=== PATIENT | male | born 1935 | race Caucasian/White ===

== ENCOUNTER 2017-11-25 09:47 | Day surgery (SDC) | payer MEDICARE, SELFPAY ==
--- NOTE | 2017-11-25 | LES_PTH ---
PATIENT: SHREE MARCUM LOC: [facility] [place][id number] AGE/SX: 82/M ROOM: RE11/25/[address]: Dr. Yash Staley MD : [id number] BED: DIS: 11/25/2017 SPEC #: [id number] RECD: 11/25/17 13:13 STATUS: MITCHEL LASHAWN #: [id number] PETERSON: 11/25/17 00:[address]: Yash Staley DEPT: SURGICAL PATHOLOGY RECD BY: Margo Nino ENTERED: 11/25/17 14:11 SP TYPE: Lesion OTHR DR: Dr. Jono Vásquez DO Tissues: Skin of face, NOS Procedures: Frozen Section (charge) Surgery Specimen Level IV Frozen (no charge) HEADER OPERATION: Excision, lesion, religious area, 22 x 22 mm lesion PRE-OP DIAGNOSIS: Lesion right temporal TISSUE SUBMITTED: Lesion right temporal area FROZEN SECTION DIAGNOSIS Skin lesion, right temporal area, biopsy: Ulcerated basal cell carcinoma, completely excised. AM:kathleen 11/25/17 MICROSCOPIC DIAGNOSIS Skin lesion of right temporal region, excisional biopsy: Ulcerated basal cell carcinoma, completely excised. Solar elastosis. AM:kathleen 11/28/17 MICROSCOPIC DESCRIPTION Slides are reviewed. GROSS DESCRIPTION Received fresh for frozen section consultation labeled with the patient's name is a specimen designated lesion right religious area. The specimen consists of a disc of hair bearing skin measuring 1.6 x 1.5 x 0.2 cm. The specimen is inked, serially sectioned and totally submitted in one cassette for frozen section consultation. / AM:kathleen 11/25/17 TC:0 CPT: 99069, 38642
[2017-11-25 12:21] VITALS: BP 98/60; PULSE 51; RESP 16; TEMP 36.2; O2SAT 99; BMI 23.6
[2017-11-25] MEDS: Bacitracin 500 UNITS/GM PACKET (13:38)
--- NOTE | 2017-11-25 13:42 | PCM.OPRPT ---
Problem List (1) Primary malignant neoplasm of skin of scalp Status: Acute Report of Operation Date of Procedure: 11/25/17 Pre-Operative Diagnosis: Malignant lesion skin if right jain Post-Operative Diagnosis: Basal cell carcinoma right jain Surgery/Procedure Performed:: Excision of 2.2 x 2.2 cm basal cell carcinoma right jain with advancement flap reconstruction Description of Surgical Findings:: Luz Marina is an 82-year-old man who presents for evaluation of the ulcerating bleeding nonhealing lesion of the right jain. He reports a history of prior excision with malignancy being identified although he does not recall the type. Given its appearance excision was offered for relief and care he was eager to proceed. The risks, alternatives, potential comp occasions, and benefits were discussed at length in the office and witnessed consent obtained. Procedure went as follows: The patient was identified in the preoperative holding brought to the operating room after site marking the right jain were obvious raised centrally ulcerated lesion was located just anterior and above the ear within the hairline. This was then injected with 1% lidocaine with 100,000 epinephrine for local hemostasis and no allowing for vasoconstriction a 2.2 x 2.2 cm circular excision was then carried out full-thickness through the skin to the temporalis muscle fascia. This was then sent for pathologic evaluation which confirmed an ulcerating basal cell carcinoma with clear margins. This concluded the resection Reconstruction of the defect was then undergone as follows: The area was then widely undermined superiorly and inferiorly with relaxing incisions carried out superiorly and inferiorly to create to advancement flaps. These were then closed deeply with interrupted 4-0 Vicryl suture. The skin layer was then closed with 4-0 Prolene suture resulting in a circular defect transformed into an eye shaped wound to close with minimal tension and avoiding deformity around the eye. Bacitracin ointment was then applied and the patient returned to recovery having tolerated she is well without significant blood loss or complications with operative findings of an ulcerating basal cell carcinoma with clear surgical margins. Type of Anesthesia:: Local Specimen's removed: Basal cell carcinoma Estimated Blood Loss (mL): 0 mL Fluids Replaced: 0 mL - Admit VTE Documentation VTE Present on Admission: No VTE Pharm Prophylaxis ordered?: No Reason prophylaxis not ordered:: Procedure Not Indicated
--- NOTE | 2017-11-25 13:47 | OP.PCM_ITS ---
Problem List (1) Primary malignant neoplasm of skin of scalp Status: Acute Report of Operation Date of Procedure: 11/25/17 Pre-Operative Diagnosis: Malignant lesion skin if right sabianism Post-Operative Diagnosis: Basal cell carcinoma right sabianism Surgery/Procedure Performed:: Excision of 2.2 x 2.2 cm basal cell carcinoma right sabianism with advancement flap reconstruction Description of Surgical Findings:: Luz Marina is an 82-year-old man who presents for evaluation of the ulcerating bleeding nonhealing lesion of the right sabianism. He reports a history of prior excision with malignancy being identified although he does not recall the type. Given its appearance excision was offered for relief and care he was eager to proceed. The risks, alternatives, potential comp occasions, and benefits were discussed at length in the office and witnessed consent obtained. Procedure went as follows: The patient was identified in the preoperative holding brought to the operating room after site marking the right sabianism were obvious raised centrally ulcerated lesion was located just anterior and above the ear within the hairline. This was then injected with 1% lidocaine with 100, 000 epinephrine for local hemostasis and no allowing for vasoconstriction a 2.2 x 2.2 cm circular excision was then carried out full-thickness through the skin to the temporalis muscle fascia. This was then sent for pathologic evaluation which confirmed an ulcerating basal cell carcinoma with clear margins. This concluded the resection Reconstruction of the defect was then undergone as follows: The area was then widely undermined superiorly and inferiorly with relaxing incisions carried out superiorly and inferiorly to create to advancement flaps. These were then closed deeply with interrupted 4-0 Vicryl suture. The skin layer was then closed with 4-0 Prolene suture resulting in a circular defect transformed into an eye shaped wound to close with minimal tension and avoiding deformity around the eye. Bacitracin ointment was then applied and the patient returned to recovery having tolerated she is well without significant blood loss or complications with operative findings of an ulcerating basal cell carcinoma with clear surgical margins. Type of Anesthesia:: Local Specimen's removed: Basal cell carcinoma Estimated Blood Loss (mL): 0 mL Fluids Replaced: 0 mL - Admit VTE Documentation VTE Present on Admission: No VTE Pharm Prophylaxis ordered?: No Reason prophylaxis not ordered:: Procedure Not Indicated
--- NOTE | 2017-11-25 13:48 | PCM.DC ---
- Discharge Diagnoses Current Active Problems: Current Active and Chronic Problems Primary malignant neoplasm of skin of scalp (Acute) You will use the following diet at home:: No restrictions Discharge Activity: Return to Normal Activity Call your doctor if your incision/area has: Sudden Increased Bleeding, Increased Redness, Swelling at the incision site Call your doctor if you observe: Fever of 101 or Higher, Uncontrolled pain Cleanse incision/area with: Do not get Incision Wet Allergies/Adverse Reactions: Allergies No Known Allergies Allergy (Verified 11/25/17 10:54) Primary Care Physician: Jono Vásquez DO [Primary Care Provider] - Please Follow Up With: Yash Staley MD When: 7 days
== END 2017-11-25 14:04 | disposition home or self-care (01) ==
LOC: SDC 09:48 → AC 10:22
PROVIDERS: Family Provider Preventive Medicine Occupational Medicine; PCP Preventive Medicine Occupational Medicine; Visit Provider Otolaryngology
PROC: (CPT 14020; principal; 2017-11-25 12:45)
DX: C44.41 Basal cell carcinoma of skin of scalp and neck (principal); I10 Essential (primary) hypertension; E78.5 Hyperlipidemia, unspecified; L03.211 Cellulitis of face; J34.2 Deviated nasal septum; Z85.828 Personal history of other malignant neoplasm of skin; Z79.891 Long term (current) use of opiate analgesic; Z79.02 Long term (current) use of antithrombotics/antiplatelets; Z79.899 Other long term (current) drug therapy
CPT/HCPCS: 14020; 88305; 88331

== ENCOUNTER → 2017-12-05 13:12 | Outpatient (CLI) | payer MEDICARE, SELFPAY ==
--- NOTE | 2017-12-05 13:15 | CDU_ITS ---
Reason For Study: Carotid stenosis Rt. Velocities/BP Lt. Velocities/BP Prox CCA 63.3/14.1 cm/sec. Prox CCA 75.6/15.8 cm/sec. Mid CCA 50.4/12.9 cm/sec. Mid CCA 69.8/15.8 cm/sec. Dist CCA 51.0/15.2 cm/sec. Dist CCA 61.6/14.1 cm/sec. Prox ICA 49.5/17.3 cm/sec. Prox ICA 39.7/11.0 cm/sec. Mid ICA 47.4/13.7 cm/sec. Mid ICA 42.0/14.9 cm/sec. Dist ICA 49.7/11.8 cm/sec. Dist ICA 44.4/16.0 cm/sec. Rt. ICA/CCA = .99. Lt. ICA/CCA = .64. Prox ECA 73.3/11.7 cm/sec. Prox ECA 65.7/11.1 cm/sec. Rt. Vert. 43.4/12.9 cm/sec. Lt. Vert. 39.3/16.9 cm/sec. Right Extracranial There is intimal thickening but no significant atherosclerotic plaque noted in the right common carotid artery. There is heterogeneous, irregular atherosclerotic plaque noted in the right internal carotid artery. There is heterogeneous, smooth atherosclerotic plaque noted in the right external carotid artery. Antegrade flow is noted in the right vertebral artery. Left Extracranial There is intimal thickening but no significant atherosclerotic plaque noted in the left common carotid artery. There is intimal thickening but no significant atherosclerotic plaque noted in the left internal carotid artery. There is no significant atherosclerotic plaque noted in the left external carotid artery. Antegrade flow is noted in the left vertebral artery. Procedure Carotid Duplex [id number]. Exam performed in department. Interpretation Summary Mild irregular plague at the proximal right internal carotid with <50% stenosis. Normal flow right external carotid Post-operative changes left carotid bulb and internal carotid with <50% stenosis of the internal carotid. Normal flow left external carotid Patent and antegrade vertebrals bilaterally. Ordering Physician: Jono Vásquez Referring Physician: Jono Vásquez Performed By: Ange Abdi RVT
== END ==
PROVIDERS: Family Provider Preventive Medicine Occupational Medicine; PCP Preventive Medicine Occupational Medicine; Visit Provider Preventive Medicine Occupational Medicine
DX: Z86.73 Personal history of transient ischemic attack (TIA), and cerebral infarction without residual deficits (principal)
CPT/HCPCS: 93880

== ENCOUNTER → 2018-02-01 12:43 | Outpatient (CLI) | payer MEDICARE, SELFPAY ==
--- NOTE | 2018-02-01 12:48 | ECHOD_ITS ---
Reason For Study: Murmur Procedure This was a 2D Doppler, Color Flow transthoracic echocardiogram. Exam performed in department. Left Ventricle Normal LV size. Left ventricular systolic function is normal. The estimated ejection fraction is 55 %. Transmitral and pulmonary venous doppler flow suggestive of impaired relaxation of left ventricle. No regional wall motion abnormalities noted. Right Ventricle Normal RV size. Normal systolic function. Atria The left atrium is mildly enlarged. Normal right atrium. Mitral Valve Normal mitral valve. Tricuspid Valve Normal tricuspid valve. Aortic Valve Trisinus/trileaflet aortic valve. Moderate focal aortic valve calcification. Peak aortic valve gradient 31 mmHg. Mean aortic valve gradient 19 mmHg. Mild to moderate aortic stenosis. Calculated aortic valve area (continuity equation) is 1.1 cm2. Mild (1+) eccentric aortic valve insufficiency. Pulmonic Valve Normal pulmonic valve. Great Vessels Normal aortic root. The pulmonary artery is normal size. Normal inferior vena cava. Pericardium/Pleural No pericardial effusion. MMode/2D Measurements & Calculations LVIDd: 4.9 cm IVSd: 1.1 cm LVOT diam: 2.2 cm LVIDs: 3.2 cm LVPWd: 1.1 cm LVOT area: 3.7 cm2 RVDd: 4.1 cm FS: 35.5 % Ao root diam: 3.2 cm LAV(MOD-bp): 73.0 ml LA A4 area: 22.0 cm2 LA dimension: 5.0 cm LAV(MOD-bp) Indexed: 41.4 ml/m2 LAV(MOD-sp2): 72.7 ml LAV(MOD-sp4): 61.7 ml RA A4 area: 20.6 cm2 Doppler Measurements & Calculations MV E max vish: 92.2 cm/sec Lat Peak E' Vish: 7.3 cm/sec Med Peak E' Vish: 4.3 cm/sec E/E' lat: 12.6 E/E' med: 21.6 Ao V2 max: 281.0 cm/sec AI max vish: 405.0 cm/sec LV V1 max: 80.4 cm/sec Ao max P.8 mmHg AI max P.6 mmHg LV V1 max P.6 mmHg Ao V2 mean: 205.6 cm/sec AI dec slope: 133.0 cm/sec2 LV V1 mean P.4 mmHg Ao mean P.5 mmHg AI P1/2t: 891.5 msec LV V1 mean: 57.0 cm/sec Ao V2 VTI: 53.2 cm LV V1 VTI: 15.9 cm GUANACO(I,D): 1.1 cm2 GUANACO(V,D): 1.1 cm2 SV(LVOT): 59.4 ml PA V2 max: 52.1 cm/sec PI end-d vish: 103.8 cm/sec TR max vish: 207.0 cm/sec TR max P.2 mmHg Interpretation Summary Normal LV size. Left ventricular systolic function is normal. The estimated ejection fraction is 55 %. Transmitral and pulmonary venous doppler flow suggestive of impaired relaxation of left ventricle The left atrium is mildly enlarged. Moderate focal aortic valve calcification. Mild to moderate aortic stenosis. Calculated aortic valve area (continuity equation) is 1.1 cm2. Ordering Physician: Heriberto Sanchez Referring Physician: MD Jono Vásquez Performed By: Sarah Fairchild, PAULETTE, RVT
== END ==
PROVIDERS: Family Provider Preventive Medicine Occupational Medicine; PCP Preventive Medicine Occupational Medicine; Visit Provider Internal Medicine Cardiovascular Disease
DX: I35.0 Nonrheumatic aortic (valve) stenosis (principal)
CPT/HCPCS: 93306

== ENCOUNTER → 2018-03-22 07:43 | Outpatient (CLI) | payer MEDICARE, SELFPAY ==
[2018-03-22 08:34] LABS: Cholesterol 126 mg/dL (200); Hemoglobin A1c 5.5 % (4.2-6.3); High Density Lipoprotein 51 mg/dL; Triglycerides 115 mg/dL; Very Low Density Lipoprotein 23 mg/dL (5-40)
== END ==
PROVIDERS: Family Provider Preventive Medicine Occupational Medicine; PCP Preventive Medicine Occupational Medicine; Visit Provider Psychiatry & Neurology Neurology
DX: Z86.73 Personal history of transient ischemic attack (TIA), and cerebral infarction without residual deficits (principal)
CPT/HCPCS: 36415; 80061; 83036

== ENCOUNTER → 2018-04-05 12:25 | Outpatient (CLI) | payer MEDICARE, SELFPAY ==
--- NOTE | 2018-04-05 12:25 | DT_ITS ---
This patient was seen during an EMR downtime April 03, 2018 - April 10, 2018. This patient may have a combination of paper and electronic documentation or all paper documentation. All documentation is viewable within the e-chart portion of [email or web address] for each patient visit.
--- NOTE | 2018-04-05 12:30 | MRI_ITS ---
STUDY: MRA OF THE HEAD WITHOUT CONTRAST REASON FOR EXAM: Male, 82 years old. STROKE; rt sided numbness- resolved now, hx prev stroke. TECHNIQUE: 3-D xlux-uh-nxyoar (TOF) imaging was performed with MIPs. The study was performed unenhanced. COMPARISON: None. FINDINGS: Normal bilateral petrous carotid arteries. Normal right cavernous carotid artery with a normal supraclinoid bifurcation. Normal left cavernous carotid artery with a normal supraclinoid bifurcation. Normal right A1 segments of the anterior cerebral artery. There is non-visualization of the left A1 segment of the anterior cerebral arteries consistent with either aplastic development or an occlusion. Normal intact anterior communicating artery (ACOM). Normal bilateral A2 segments of the anterior cerebral arteries. Normal right M1 and M2 segments of the middle cerebral arteries, with a normal M1 bifurcation. Normal left M1 and M2 segments of the middle cerebral arteries, with a normal M1 bifurcation. There is non-visualization of the right posterior communicating artery (PCOM). There is non-visualization of the left posterior communicating artery (PCOM). There is nonvisualization of the right vertebral artery with a dominant left vertebral artery. Normal basilar artery with a normal basilar bifurcation. The visualized bilateral superior cerebellar (SCA) arteries are normal. Normal bilateral P1, P2 and visualized P3 segments of the posterior cerebral arteries. There is no demonstrated aneurysm of the [place]. There is no major vessel occlusion or hemodynamically significant stenosis. There is no demonstrated abnormality of the visualized brain. MRI/MRA Head ONLY without Contrast IMPRESSION: Unremarkable MRA of the head Electronically Signed: Mallory Trevizo MD at 8:11 EDT Tel , Service support ,
--- NOTE | 2018-04-05 13:00 | MRI_ITS ---
STUDY: MRA NECK WITH AND WITHOUT CONTRAST REASON FOR EXAM: Male, 82 years old. STROKE; rt sided numbness- resolved now, hx prev stroke. TECHNIQUE: 3-D cxfw-ge-rjvmud (TOF) imaging was performed in an 1.5 T MRI scanner. 7 ml of Gadavist was administered for the contrast enhanced images. COMPARISON: None. FINDINGS: RIGHT CAROTID ARTERIES: Normal right common carotid artery (CCA). Normal right common carotid bulb. Normal origin of the right internal carotid (ICA) artery without a hemodynamically significant stenosis. Normal visualized cervical portion of the right internal carotid artery. Normal origin of the right external carotid artery (ECA). LEFT CAROTID ARTERIES: Normal left common carotid artery (CCA). Normal left common carotid bulb. Normal origin of the left internal carotid (ICA) artery without a hemodynamically significant stenosis. Normal visualized cervical portion of the left internal carotid artery. Normal origin of the left external carotid artery (ECA). VERTEBRAL ARTERIES: There is antegrade flow within the bilateral vertebral arteries with a diminutive right vertebral artery, and a dominant left vertebral artery. MRI/MRA Neck WITH and W/O Contrast IMPRESSION: Unremarkable bilateral cervical carotid arteries. Diminutive right vertebral artery with a dominant left vertebral artery. Electronically Signed: Mallory Trevizo MD at 8:11 EDT Tel , Service support ,
--- NOTE | 2018-04-05 13:00 | MRI_ITS ---
STUDY: MRI BRAIN WITHOUT CONTRAST REASON FOR EXAM: Male, 82 years old. STROKE; rt sided numbness- resolved now, hx prev stroke. TECHNIQUE: Standardized multiplanar fat and water weighted pulse sequences were obtained. COMPARISON: None. FINDINGS: Normal size of the ventricles and extra-axial spaces for the patient's age. There are a limited number of small white matter hyperintensities, distributed throughout the deep white matter tracts of the cerebral hemispheres, consistent with mild chronic white matter ischemic changes. Normal bilateral basal ganglia. Normal thalami. There is no extra-axial fluid accumulation. Normal flow voids within the major intracranial circulation suggesting patency by spin echo criteria. Normal sella turcica, pituitary gland, infundibular stalk, optic chiasm and hypothalamus. Normal tectal plate and pineal gland. Normal midbrain, vivienne and medulla. Normal cerebellum. Normal basal cisterns. Normal bilateral temporal bones. Normal bilateral internal auditory canals. No demonstrated orbital abnormality, within the constraints of a routine brain study. There is mucoperiosteal inflammatory disease of the paranasal sinuses consistent with mild chronic sinusitis. Normal calvarium and skull base. Normal visualized soft tissue structures. Normal visualized upper cervical spine. MRI/Brain without Contrast IMPRESSION: No acute intracranial abnormality. Electronically Signed: Mallory Trevizo MD at 8:11 EDT Tel , Service support ,
[2018-04-16 15:01] LABS: CREATININE FINGERSTICK 0.9 mg/dL (0.70-1.30); EGFR FINGERSTICK > 60 mL/min (>60)
== END ==
PROVIDERS: Family Provider Preventive Medicine Occupational Medicine; PCP Preventive Medicine Occupational Medicine; Visit Provider Psychiatry & Neurology Neurology
DX: Z86.73 Personal history of transient ischemic attack (TIA), and cerebral infarction without residual deficits (principal)
CPT/HCPCS: 70544; 70549; 70551; A9585

== ENCOUNTER → 2018-11-24 08:55 | Outpatient (CLI) | payer MEDICARE, SELFPAY ==
[2018-11-22 14:53] VITALS: BMI 25.9
== END ==
PROVIDERS: Family Provider Preventive Medicine Occupational Medicine; PCP Preventive Medicine Occupational Medicine; Referring Provider Internal Medicine Cardiovascular Disease; Visit Provider Internal Medicine Cardiovascular Disease
DX: I48.2 Chronic atrial fibrillation (principal); I35.0 Nonrheumatic aortic (valve) stenosis
CPT/HCPCS: 93225; 93226

== ENCOUNTER → 2018-11-29 13:28 | Outpatient (CLI) | payer MEDICARE, SELFPAY ==
[2018-11-22 14:53] VITALS: BMI 25.9
--- NOTE | 2018-11-29 13:30 | ECHOD_ITS ---
Reason For Study: AFIB Procedure This was a 2D Doppler, Color Flow transthoracic echocardiogram. The exam was of adequate technical quality. Exam performed in department. Left Ventricle Normal LV size. Left ventricular systolic function is normal. The estimated ejection fraction is 55 %. There is evidence of diastolic dysfunction. No regional wall motion abnormalities noted. Right Ventricle Normal RV size. Normal systolic function. Atria The left atrium is severely enlarged. The right atrium is moderately enlarged. No doppler evidence for ASD. Mitral Valve There is no mitral annular calcification. Mild diffuse mitral valve thickening. Trivial mitral valve insufficiency. Tricuspid Valve Normal tricuspid valve. Mild tricuspid valve insufficiency. Right ventricular systolic pressure estimated to be 25 mmHg. Aortic Valve Trisinus/trileaflet aortic valve. Moderate diffuse aortic valve thickening. Moderate diffuse aortic valve calcification. Moderate aortic stenosis. Mild (1+) aortic valve insufficiency. Pulmonic Valve The pulmonic valve is not well visualized. Trivial pulmonic valve insufficiency. Great Vessels Normal sized aortic root. Pericardium/Pleural No pericardial effusion. MMode/2D Measurements & Calculations LVIDd: 4.9 cm IVSd: 1.1 cm LVOT diam: 2.2 cm LVIDs: 3.5 cm LVPWd: 1.1 cm LVOT area: 3.8 cm2 FS: 28.4 % Ao root diam: 3.4 cm LAV(MOD-bp): 115.7 ml Aortic Valve Planimetry: 1.0 cm2 LAV(MOD-bp) Indexed: 64.6 ml/m2 LAV(MOD-sp2): 113.6 ml LAV(MOD-sp4): 115.5 ml LA dimension(2D): 4.4 cm LA A4 area: 31.0 cm2 RA A4 area: 26.4 cm2 Time Measurements MV dec time: 0.16 sec Doppler Measurements & Calculations MV E max vish: 97.1 cm/sec Lat Peak E' Vish: 6.5 cm/sec Med Peak E' Vish: 5.0 cm/sec E/E' lat: 14.9 E/E' med: 19.5 Ao V2 max: 280.6 cm/sec AI max vish: 401.0 cm/sec LV V1 max: 78.1 cm/sec Ao max P.7 mmHg AI max P.4 mmHg LV V1 max P.5 mmHg Ao V2 mean: 220.6 cm/sec AI dec slope: 166.5 cm/sec2 LV V1 mean P.5 mmHg Ao mean P.8 mmHg AI P1/2t: 705.6 msec LV V1 mean: 57.5 cm/sec Ao V2 VTI: 66.6 cm LV V1 VTI: 17.2 cm GUANACO(I,D): 0.97 cm2 GUANACO(V,D): 1.0 cm2 SV(LVOT): 64.7 ml PA V2 max: 54.7 cm/sec TR max vish: 233.3 cm/sec TR max P.8 mmHg Interpretation Summary Left ventricular systolic function is normal. The estimated ejection fraction is 55 %. The left atrium is severely enlarged. The right atrium is moderately enlarged. Mild diffuse mitral valve thickening. Trivial mitral valve insufficiency. Mild tricuspid valve insufficiency. Moderate aortic stenosis. Mild (1+) aortic valve insufficiency. Trivial pulmonic valve insufficiency. Right ventricular systolic pressure estimated to be 25 mmHg. There is evidence of diastolic dysfunction. Ordering Physician: Heriberto Sanchez Referring Physician: JEAN CLAUDE NICHOLE Performed By: Samantha Bergeron, RDCS, RVT
== END ==
PROVIDERS: Family Provider Preventive Medicine Occupational Medicine; PCP Preventive Medicine Occupational Medicine; Referring Provider Internal Medicine Cardiovascular Disease; Visit Provider Internal Medicine Cardiovascular Disease
DX: I35.0 Nonrheumatic aortic (valve) stenosis (principal); I48.2 Chronic atrial fibrillation
CPT/HCPCS: 93306

== ENCOUNTER 2019-04-25 13:53 | Emergency (ER) | payer MEDICARE, SELFPAY ==
[2019-03-28 15:35] VITALS: BMI 25.7
[2019-04-25 13:54] VITALS: BP 128/72; PULSE 67; RESP 16; TEMP 36.6; O2SAT 97; BMI 23.8
[2019-04-25 14:16] VITALS: BP 112/65; PULSE 52; RESP 20; O2SAT 97
--- NOTE | 2019-04-25 14:17 | EKG12_ITS ---
Test Reason : SYNCOPE Blood Pressure : / mmHG Vent. Rate : 060 BPM Atrial Rate : 375 BPM P-R Int : 000 ms QRS Dur : 148 ms QT Int : 448 ms P-R-T Axes : 000 059 015 degrees QTc Int : 448 ms Atrial fibrillation Right bundle branch block Abnormal ECG Confirmed by NIKO BENJAMIN, HU ([id number]), clinical editor VIRGIL MEDELLIN ([id number]) on 04/27/2019 10:35:15 AM Referred By: MATILDE Confirmed By:MARK POPE MD
[2019-04-25 14:18] VITALS: O2SAT 97
--- NOTE | 2019-04-25 14:34 | ED.VISSUMM ---
- ER Visit Summary Date of Service: 04/25/19 Chief Complaint: Syncope History of Present Illness: The patient is a 83 M who presents after syncopal episode. He was sitting up and stood up quickly and had a syncopal episode. states that he turned white and passed out. This is happened to him in the past. He does follow with Dr. Sanchez. He has a history of atrial fibrillation and is on Xarelto. He had no chest pain or shortness of breath before or after the incident. He states he felt immediately better about a minute afterwards. The states that he has been walking differently and thinks he may be a little bit weak. The patient denies this. Physical Examination: Vital signs reviewed. HEENT exam unremarkable. Heart is irregularly irregular with a rate of 60 without murmurs. Lungs are clear to auscultation. Abdomen is soft and nontender. Extremities reveal no edema. Skin exam normal. Neurologic exam normal. Test Results: EKG is atrial fibrillation with rate of 60. No ST changes. Troponin normal. Other labs are also unremarkable. Emergency Department Course and Treatment: Patient states he feels back to norm. He was able to ambulate without difficulty in the emergency department. His labs are all normal. This is happened to him in the past multiple times. He feels fine and would like to go home. They will call Dr. Sanchez's office today for follow-up. Treatment Plan: [] Disposition: Discharge Impression: Syncope This note was generated with [employer] dictation software. It may contain incorrect words, spelling, and punctuation that were not noted in review of the chart prior to signing ED Disposition - Plan for ED Patient: Referrals: Jono Vásquez DO [Primary Care Provider] -
[2019-04-25 14:36] LABS: Absolute Lymphocyte Count 2.12 X10^3/ul (0.83-4.51); Absolute Neutrophil Count 4.5 X10^3/uL (2.0-7.7); Basophil# 0.06 X10^3/uL; Basophil% 0.8 % (0-1); Eosinophil# 0.24 X10^3/uL; Eosinophils% 3.1 % (0-5); Hematocrit 42.5 % (40-54); Hemoglobin 14.7 g/dl (13.0-16.5); Lymphocyte # 2.12 X10^3/ul (4.0); Lymphocyte % 27.7 % (19-41); Mean Corp Hgb Conc 34.6 g/gl (32-36); Mean Corpuscular Hgb 30.7 pg (27.0-32.0); Mean Corpuscular Volume 88.7 fL (80-94); Mean Platelet Vol. 9.9 fl (6.2-12.0); Monocyte# 0.75 X10^3/uL; Monocyte% 9.8 % (0-10); Neutrophil # 4.45 X10^3/uL (2.7-7.7); Neutrophil % 58.3 % (47-70); Platelet Count 190 K/mm3 (150-450); RBC Distribution Width CV 12.9 % (11.6-14.6); RBC Distribution Width SD 41.5 fl (35.1-43.9); Red Blood Count 4.79 M/mm3 (4.6-6.2); White Blood Count 7.6 K/mm3 (4.4-11.0)
[2019-04-25 14:38] LABS: POSITIVE COUNT NO; POSITIVE DIFFERENTIAL NO; POSITIVE MORPHOLOGY NO
[2019-04-25 14:39] LABS: Anion Gap 7 (5-15); BUN 22 mg/dL (7-18); BUN/Creat Ratio 18.2 RATIO (10-20); Calcium,Total 8.7 mg/dL (8.5-10.1); Chloride 106 mmol/L (98-107); Creatinine, Serum 1.21 mg/dL (0.70-1.30); EST Glomerular Filtration Rate 61 mL/min (>60); Est Glom Filt Rate - Afr Amer 74 mL/min (>60); Estimated Creatinine Clearance 44.76 ml/min; Glucose 93 mg/dL (74-106); Potassium 4.3 mmol/L (3.5-5.1); Sodium Level 141 mmol/L (136-145)
[2019-04-25 15:05] VITALS: BP 125/83; PULSE 74; RESP 16; O2SAT 97
--- NOTE | 2019-04-25 15:09 | ED.DEP ---
ED Disposition - Plan for ED Patient: Disposition: Home or Assisted Living Instructions: SYNCOPE, Unk Cause Referrals: Jono Vásquez DO [Primary Care Provider] -
[2019-04-25 15:57] VITALS: BP 115/74; PULSE 64; RESP 16; O2SAT 98
== END 2019-04-25 15:30 | disposition home or self-care (01) ==
PROVIDERS: Emergency Provider Emergency Medicine; Family Provider Preventive Medicine Occupational Medicine; PCP Preventive Medicine Occupational Medicine
DX: R55 Syncope and collapse (principal); I48.91 Unspecified atrial fibrillation; I10 Essential (primary) hypertension; E78.00 Pure hypercholesterolemia, unspecified; Z79.02 Long term (current) use of antithrombotics/antiplatelets; Z79.899 Other long term (current) drug therapy
CPT/HCPCS: 80048; 84484; 85025; 93005; 99285; A4216

== ENCOUNTER → 2019-05-16 | Outpatient (CLI) | payer MEDICARE, SELFPAY ==
[2019-04-30 10:33] VITALS: BMI 23.8
--- NOTE | 2019-05-16 09:29 | STRESSREP_ITS ---
Stress Test Report Date: 05-16-19 Procedure: Pharmacologic stress nuclear imaging study Indications: Atrial fibrillation; aortic valve stenosis Consent: Per the patient Procedure: The patient underwent pharmacologic (Regadenoson) evaluation with a peak heart rate of 90 beats per minute (64 %predicted maximal heart rate) and a peak blood pressure of 142/82 mmHg. The baseline ECG demonstrated atrial fibrillation; right bundle branch block pattern. The peak pharmacologic ECG demonstrated no obvious ECG changes. There was a rare PVC pretest. There was no complaint of chest discomfort during pharmacologic infusion or recovery. The examination was discontinued secondary to completion of protocol. Impression: 1. Pharmacologic (Regadenoson) evaluation 2. Peak pharmacologic ECG with no obvious ECG changes. 3. There was a rare PVC pretest. 4. Nuclear images pending Myocardial perfusion imaging study: Technique: The patient was injected with 11.1 millicuries of technetium 99m Cardiolite and subsequently rest SPECT Cardiolite nuclear imaging was obtained in the horizontal long, vertical long, and short axis views. The patient underwent pharmacologic (Regadenoson) evaluation with a peak heart rate of 90 beats per minute (64 % percent predicted maximal heart rate) and a peak blood pressure of 142/82 mmHg. The patient was injected with 32.5 millicuries of technetium 99m Cardiolite and subsequently stress SPECT Cardiolite nuclear imaging was obtained in the horizontal long, vertical long, and short axis views. A gated Cardiolite study at peak stress was obtained. Interpretation: Rest and stress SPECT Cardiolite nuclear imaging status post realignment, normalization, and attenuation correction demonstrate all area of diminished tracer uptake near the apical segments at rest which appears to be less prominent and/or normalize following stress. There is end systolic thickening and brightening. The gated Cardiolite study demonstrates myocardial thickening and inward wall motion. The reported LVEF is 62 %. Impression: 1. Rest and stress SPECT currently nuclear imaging demonstrate myocardial perfusion changes appearing compatible with the effects of shifting soft tissue attenuation/artifact and/or physiologic apical thinning with no myocardial perfusion changes considered diagnostic for associated stress-induced myocardial ischemia. 2. The gated Cardiolite study reports an LVEF of 62 %. This note was generated with Chat[employer] software. It may contain incorrect words, spelling, and punctuation that were not noted in checking the note before signing.
== END | disposition home or self-care (01) ==
PROVIDERS: Family Provider Preventive Medicine Occupational Medicine; PCP Preventive Medicine Occupational Medicine; Referring Provider Internal Medicine Cardiovascular Disease; Visit Provider Internal Medicine Cardiovascular Disease
DX: I10 Essential (primary) hypertension (principal)
CPT/HCPCS: 78452; 93017; A9500; A4216; J2785

== ENCOUNTER → 2019-05-24 | Outpatient (CLI) | payer MEDICARE, SELFPAY ==
[2019-04-30 10:33] VITALS: BMI 23.8
[2019-05-24 12:44] LABS: Anion Gap 9 (5-15); BUN 19 mg/dL (7-18); BUN/Creat Ratio 16.2 RATIO (10-20); Calcium,Total 8.9 mg/dL (8.5-10.1); Chloride 109 mmol/L (98-107); Creatinine, Serum 1.17 mg/dL (0.70-1.30); EST Glomerular Filtration Rate 63 mL/min (>60); Est Glom Filt Rate - Afr Amer 77 mL/min (>60); Glucose 79 mg/dL (74-106); Potassium 3.9 mmol/L (3.5-5.1); Sodium Level 144 mmol/L (136-145)
== END | disposition home or self-care (01) ==
LOC: LAB 11:24
PROVIDERS: Family Provider Preventive Medicine Occupational Medicine; PCP Preventive Medicine Occupational Medicine; Referring Provider Nurse Practitioner Family; Visit Provider Nurse Practitioner Family
DX: I48.2 Chronic atrial fibrillation (principal); I10 Essential (primary) hypertension; I35.0 Nonrheumatic aortic (valve) stenosis; E78.5 Hyperlipidemia, unspecified
CPT/HCPCS: 36415; 80048

== ENCOUNTER → 2019-07-13 | Outpatient (CLI) | payer MEDICARE, SELFPAY ==
[2019-04-30 10:33] VITALS: BMI 23.8
--- NOTE | 2019-07-13 14:23 | EEG_ITS ---
- Electroencephalogram Date of service 07/13/2019 History EEG is being done in this 84 yr F to rule out seizures EEG Description: This is an 18 channel EEG with 10-20 lead placement system. Bipolar montages, and Referential montages were reviewed. Photic stimulation and Hyperventilation were performed. The posterior dominant rhythm is 11 HZ synchronous, symmetric, reacting to eye opening and closing. Photo stimulation elicited normal driving response but no abnormal photoparoxysmal response, Hyperventilation did not elicit any abnormal photoparoxysmal response. Sleep was identified. There is no abnormal background slowing noted. There was no epileptiform discharges or electrographic seizures noted during this recording. Muscle artefact artefact noted throughout the record. Sales And Marketing Intern documented multiple apneic episodes during the EEG record. EEG Interpretation This is a normal awake and asleep EEG. There is no epileptiform discharges or electrographic seizures noted during the record. Given the documentation of multiple apneic episodes patient must be tested for sleep apnea if not already diagnosed. Patient may benefit from getting polysomnography testing. Clinical correlation is advised. Will defer testing to PCP/ordering physician.
== END | disposition home or self-care (01) ==
LOC: PSN 07:14
PROVIDERS: Family Provider Preventive Medicine Occupational Medicine; PCP Preventive Medicine Occupational Medicine; Referring Provider Nurse Practitioner Family; Visit Provider Nurse Practitioner Family
DX: R56.9 Unspecified convulsions (principal)
CPT/HCPCS: 95819

== ENCOUNTER → 2019-07-17 | Outpatient (CLI) | payer MEDICARE, SELFPAY ==
[2019-04-30 10:33] VITALS: BMI 23.8
--- NOTE | 2019-07-17 06:34 | MRI_ITS ---
STUDY: MRI BRAIN WITHOUT CONTRAST REASON FOR EXAM: Male, 84 years old. memory loss, episodes of confusion TECHNIQUE: Standardized multiplanar fat and water weighted pulse sequences were obtained. COMPARISON: Apr 05 2018 FINDINGS: There is mild cerebral atrophy with widening of the extra-axial spaces and ventricular dilatation. There are a limited number of small white matter hyperintensities, distributed throughout the deep white matter tracts of the cerebral hemispheres, consistent with mild chronic white matter ischemic changes. Normal bilateral basal ganglia. Normal thalami. There is no extra-axial fluid accumulation. Normal flow voids within the major intracranial circulation suggesting patency by spin echo criteria. Normal sella turcica, pituitary gland, infundibular stalk, optic chiasm and hypothalamus. Normal tectal plate and pineal gland. Normal midbrain, vivienne and medulla. Normal cerebellum. Normal basal cisterns. There is minimal paranasal sinus disease. MRI/Brain without Contrast IMPRESSION: No acute intracranial abnormality. Electronically Signed: Mallory Trevizo MD at 15:55 EDT Tel , Service support ,
== END | disposition home or self-care (01) ==
PROVIDERS: Family Provider Preventive Medicine Occupational Medicine; PCP Preventive Medicine Occupational Medicine; Referring Provider Nurse Practitioner Family; Visit Provider Nurse Practitioner Family
DX: R41.3 Other amnesia (principal)
CPT/HCPCS: 70551

== ENCOUNTER → 2019-08-15 | Outpatient (CLI) | payer MEDICARE, SELFPAY ==
[2019-04-30 10:33] VITALS: BMI 23.8
== END | disposition home or self-care (01) ==
PROVIDERS: Family Provider Preventive Medicine Occupational Medicine; PCP Preventive Medicine Occupational Medicine; Referring Provider Psychiatry & Neurology Neurology; Visit Provider Psychiatry & Neurology Neurology
DX: G47.33 Obstructive sleep apnea (adult) (pediatric) (principal)
CPT/HCPCS: 95810

== ENCOUNTER → 2019-12-20 | Outpatient (CLI) | payer MEDICARE, SELFPAY ==
[2019-12-03 09:46] VITALS: BMI 24.0
--- NOTE | 2019-12-20 09:50 | ECHOD_ITS ---
Reason For Study: MURMUR Procedure This was a 2D Doppler, Color Flow transthoracic echocardiogram. The exam was of adequate technical quality. Exam performed in department. Left Ventricle Normal LV size. Left ventricular systolic function is normal. The estimated ejection fraction is 55 %. Unable to assess diastolic dysfunction. No regional wall motion abnormalities noted. Right Ventricle Normal RV size. Normal systolic function. Atria The left atrium is severely enlarged. The right atrium is moderately enlarged. No doppler evidence for ASD. Mitral Valve There is no mitral annular calcification. Mild diffuse mitral valve thickening. Mild (1+) mitral valve insufficiency. Tricuspid Valve Normal tricuspid valve. Mild to moderate (1-2+) tricuspid valve insufficiency. Right ventricular systolic pressure estimated to be 26 mmHg. Aortic Valve Trisinus/trileaflet aortic valve. Moderate diffuse aortic valve thickening. Moderate diffuse aortic valve calcification. Moderate to severe aortic valve stenosis. Mild (1+) aortic valve insufficiency. Pulmonic Valve The pulmonic valve is not well visualized. Trivial pulmonic valve insufficiency. Great Vessels Normal sized aortic root. Pericardium/Pleural No pericardial effusion. MMode/2D Measurements & Calculations LVIDd: 4.9 cm IVSd: 1.1 cm LVOT diam: 2.2 cm LVIDs: 3.6 cm LVPWd: 1.2 cm LVOT area: 3.8 cm2 RVDd: 4.2 cm FS: 26.3 % Ao root diam: 3.7 cm LAV(MOD-bp): 83.8 ml Aortic Valve Planimetry: 0.63 cm2 LAV(MOD-bp) Indexed: 46.2 ml/m2 LAV(MOD-sp2): 74.1 ml LAV(MOD-sp4): 91.8 ml LA dimension(2D): 4.5 cm LA A4 area: 27.0 cm2 RA A4 area: 22.7 cm2 Doppler Measurements & Calculations MV A max yovana: 66.1 cm/sec Ao V2 max: 282.3 cm/sec AI max yovana: 447.2 cm/sec Ao max P.6 mmHg AI max P.1 mmHg Ao V2 mean: 215.4 cm/sec AI dec slope: 167.0 cm/sec2 Ao mean P.5 mmHg AI P1/2t: 784.0 msec Ao V2 VTI: 52.7 cm GUANACO(I,D): 0.63 cm2 GUANACO(V,D): 0.63 cm2 LV V1 max: 47.0 cm/sec SV(LVOT): 33.1 ml PA V2 max: 56.6 cm/sec LV V1 max P.89 mmHg LV V1 mean P.54 mmHg LV V1 mean: 35.1 cm/sec LV V1 VTI: 8.8 cm TR max yovana: 239.0 cm/sec TR max P.9 mmHg Interpretation Summary Left ventricular systolic function is normal. The estimated ejection fraction is 55 %. The left atrium is severely enlarged. The right atrium is moderately enlarged. Mild diffuse mitral valve thickening. Mild (1+) mitral valve insufficiency. Mild to moderate (1-2+) tricuspid valve insufficiency. Moderate to severe aortic valve stenosis. Mild (1+) aortic valve insufficiency. Trivial pulmonic valve insufficiency. Right ventricular systolic pressure estimated to be 26 mmHg. Unable to assess diastolic dysfunction. Ordering Physician: Heriberto Sanchez Referring Physician: JEAN CLAUDE NICHOLE Performed By: Samantha Bergeron, PAULETTE, RVT
== END | disposition home or self-care (01) ==
LOC: CVS 09:50
PROVIDERS: PCP Preventive Medicine Occupational Medicine; Referring Provider Internal Medicine Cardiovascular Disease; Visit Provider Internal Medicine Cardiovascular Disease
DX: I48.21 Permanent atrial fibrillation (principal)
CPT/HCPCS: 93306

== ENCOUNTER → 2021-04-06 10:45 | Outpatient (CLI) | payer MEDICARE, SELFPAY ==
[2021-03-25 11:15] VITALS: BMI 23.6
--- NOTE | 2021-04-06 10:48 | ECHOD_ITS ---
Reason For Study: Murmur Procedure This was a 2D Doppler, Color Flow transthoracic echocardiogram. The study was technically difficult. Bubble Study performed. Exam performed in department. Left Ventricle Normal LV size. Moderate concentric left ventricular hypertrophy. Left ventricular systolic function is normal. The estimated ejection fraction is 55 %. Unable to assess diastolic dysfunction. No regional wall motion abnormalities noted. Right Ventricle Normal RV size. Normal systolic function. Atria The left atrium is severely enlarged. The right atrium is moderately enlarged. No doppler evidence for ASD. Bubble contrast study negative for right to left interatrial shunt. Mitral Valve There is no mitral annular calcification. Mild diffuse mitral valve thickening. The mitral papillary muscle appears thickened and/or calcified. Mild (1+) eccentric mitral valve insufficiency. Tricuspid Valve Normal tricuspid valve. Mild tricuspid valve insufficiency. Right ventricular systolic pressure estimated to be 25 mmHg. Aortic Valve Trisinus/trileaflet aortic valve. Severe diffuse aortic valve thickening. Severe diffuse aortic valve calcification. Severe aortic valve stenosis. (based upon GUANACO). Mild (1+) aortic valve insufficiency. Pulmonic Valve The pulmonic valve is not well visualized. Mild (1+) pulmonic valve insufficiency. Great Vessels The aortic root is not well visualized. Pericardium/Pleural No pericardial effusion. Medication Performed a rapid injection of agitated mix of 9 cc saline and 1cc air to assess for atrial septal defect. MMode/2D Measurements & Calculations LVIDd: 4.5 cm IVSd: 1.7 cm LVOT diam: 2.2 cm LVIDs: 2.9 cm LVPWd: 1.4 cm RVDd: 3.6 cm FS: 35.3 % LVOT area: 3.8 cm2 LA dimension: 4.5 cm LAV(MOD-bp): 86.7 ml Aortic Valve Planimetry: 0.75 cm2 LAV(MOD-bp) Indexed: 47.2 ml/m2 LAV(MOD-sp2): 74.1 ml LAV(MOD-sp4): 92.0 ml LA A4 area: 27.5 cm2 RA A4 area: 20.2 cm2 Doppler Measurements & Calculations MV E max yovana: 82.5 cm/sec Ao V2 max: 311.4 cm/sec AI max yovana: 478.0 cm/sec Ao max P.9 mmHg AI max P.5 mmHg Ao V2 mean: 223.9 cm/sec AI dec slope: 162.5 cm/sec2 Ao mean P.4 mmHg AI P1/2t: 861.5 msec Ao V2 VTI: 66.5 cm GUANACO(I,D): 0.71 cm2 GUANACO(V,D): 0.74 cm2 LV V1 max: 59.9 cm/sec SV(LVOT): 47.2 ml PA V2 max: 56.8 cm/sec LV V1 max P.4 mmHg LV V1 mean P.71 mmHg LV V1 mean: 39.1 cm/sec LV V1 VTI: 12.3 cm TR max yovana: 232.5 cm/sec TR max P.6 mmHg ECHO/Echo Complete Interpretation Summary The study was technically difficult. Left ventricular systolic function is normal. The estimated ejection fraction is 55 %. Moderate concentric left ventricular hypertrophy. The left atrium is severely enlarged. The right atrium is moderately enlarged. Mild diffuse mitral valve thickening. The mitral papillary muscle appears thickened and/or calcified. Mild (1+) eccentric mitral valve insufficiency. Mild tricuspid valve insufficiency. Severe aortic valve stenosis. (based upon GUANACO) Mild (1+) aortic valve insufficiency. Mild (1+) pulmonic valve insufficiency. Right ventricular systolic pressure estimated to be 25 mmHg. Unable to assess diastolic dysfunction. Ordering Physician: Heriberto Sanchez Referring Physician: Ute Walsh Performed By: Stefan Powell RCS
== END ==
PROVIDERS: PCP Nurse Practitioner Family; Referring Provider Internal Medicine Cardiovascular Disease; Visit Provider Internal Medicine Cardiovascular Disease
DX: G45.9 Transient cerebral ischemic attack, unspecified (principal); I35.0 Nonrheumatic aortic (valve) stenosis; I48.20 Chronic atrial fibrillation, unspecified; E78.5 Hyperlipidemia, unspecified; I10 Essential (primary) hypertension
CPT/HCPCS: 93306; A4216

== ENCOUNTER 2021-05-05 08:50 | Day surgery (SDC) | payer MEDICARE, SELFPAY ==
[2021-03-25 11:15] VITALS: BMI 23.6
[2021-04-28 10:05] VITALS: BMI 23.6
--- NOTE | 2021-04-28 10:41 | RAD_ITS ---
STUDY: X-RAY CHEST REASON FOR EXAM: Male, 85 years old. Sever aortic stenosis TECHNIQUE: PA and lateral views of the chest. COMPARISON: None. FINDINGS: There is hyperinflation of the lungs consistent with chronic obstructive lung disease (COPD). There is no demonstrated pleural abnormality. Normal size heart. Normal mediastinum and archana. Normal visualized pulmonary arteries. Normal visualized aortic arch and descending thoracic aorta. Normal visualized thoracic spine. Normal visualized ribs, clavicles, and shoulders. There is no demonstrated abnormality of the visualized soft tissue structures of the upper abdomen. RAD/Chest PA and Lateral IMPRESSION: Emphysema without pneumonia or atelectasis. Electronically Signed: Levy Pinzon MD at 13:42 EDT Tel , Service support ,
[2021-04-28 12:40] LABS: Mean Corpuscular Hgb 30.9 pg (27.0-32.0); Mean Corpuscular Volume 90.9 fL (80-94); Mean Platelet Vol. 10.6 fl (6.2-12.0); Platelet Count 191 K/mm3 (150-450); RBC Distribution Width CV 13.1 % (11.6-14.6); RBC Distribution Width SD 43.2 fl (35.1-43.9); Red Blood Count 5.83 M/mm3 (4.6-6.2)
[2021-04-28 12:51] LABS: International Normalized Ratio 1.7; Prothrombin Time (Protime)PT. 18.8 SECONDS (11.7-14.9)
[2021-04-28 12:52] LABS: Partial Thromboplast Time 41.8 Seconds (24.1-36.2); Scan Indicated on CBC? Y/N YES- FLAGS NOTED
[2021-04-28 13:06] LABS: Anion Gap 7 (5-15); BUN 19 mg/dL (7-18); BUN/Creat Ratio 14.6 RATIO (10-20); Calcium,Total 9.3 mg/dL (8.5-10.1); Chloride 106 mmol/L (98-107); EST Glomerular Filtration Rate 56 mL/min (>60); Est Glom Filt Rate - Afr Amer 68 mL/min (>60); Glucose 79 mg/dL (74-106); Potassium 3.8 mmol/L (3.5-5.1); Sodium Level 141 mmol/L (136-145)
[2021-04-29 13:30] LABS: Pathologist Review Reviewed
[2021-05-01 09:21] VITALS: BMI 23.6
--- NOTE | 2021-05-04 14:59 | PCM.HP.BLA ---
History and Physical Date of Admission: 05/05/21 [facility] [id number] [place], [place] [id number] OFFICE VISITDate of Service: 03/25/21 MR#:[id number]: SHREE MARCUM #:[id number]:[id number] Provider:Dr. Heriberto Sanchez, DEBge/Sex: 85/M [facility] [facility]:Signed HPI HPI History of Present Illness Details: This is a 85-year-old white male who presents today for outpatient cardiovascular follow-up of his history of atrial fibrillation-permanent, aortic valve stenosis, hyperlipidemia, and hypertension. Overall he states he has done well with no ongoing issues of rapid heart rate sensations and no syncopal events. There is been no concerning chest discomfort or difficulty breathing at rest or with exertion. He states he has not required any additional cardiovascular testing. He does believe his PCP group checked his lipid labs earlier this year. He brings with him his home heart rate and blood pressure recording diary. Overall his recordings appear to be within acceptable ranges. He is noted to have an occasional low and an occasional high blood pressure. 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 Accompanied by: Allergies terazosin Allergy (Verified 03/25/21 11:18) lower blood pressure Medications simvastatin 40 mg tablet 40 mg PO QPM 12/19/17 [History Confirmed 03/25/21] metoprolol tartrate 25 mg tablet 25 mg PO BID tab 11/29/18 [History Confirmed 03/25/21] alendronate 35 mg tablet 35 mg PO QWEEK 03/28/19 [History Confirmed 03/25/21] rivaroxaban 20 mg tablet 20 mg PO QDAY #90 tab 10/16/20 [Rx Confirmed 03/25/21] amlodipine 2.5 mg-benazepril 10 mg capsule 1 cap PO DAILY #90 cap 02/26/21 [Rx Confirmed 03/25/21] [facility] Medical History A-fib Atrial fibrillation, permanent BPH (benign prostatic hyperplasia) Essential hypertension Hyperlipidemia Hypertension Nonrheumatic aortic (valve) stenosis Paroxysmal atrial fibrillation Pneumonia 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 Transient cerebral ischemia Surgical History History of endarterectomy History of hernia repair Family History Mother Hypertension Father Hypertension CVA (cerebral vascular accident) Sister Hypertension Brother Cancer Heart disease CVA (cerebral vascular accident) Dementia Social History Smoking Status: Never smoker alcohol intake: current details: occasional substance use type: does not use caffeine: No ROS Const Const: Negative for fatigue, weakness, frequent falls, excessive sweating, weight gain or weight loss Eyes Eyes: Negative for transient loss of vision, blurry vision or change in vision ENT ENT: Negative for dizziness or balance problems Cardio Chest Pain: No Palpitations: No Edema: None Muscle aches with walking: None Resp Respiratory: Positive for SOB with activity (baseline); Negative for SOB at rest GI GI: Negative vomiting or vomiting blood/hematemesis : Negative for hematuria Musc Musc: Negative for muscle aches/ myalgia, muscle weakness, joint pain or balance problems Skin Skin: Negative non-healing lesions or rash Neuro Neuro: Negative for dizziness, lightheadedness, orthostatic symptoms, frequent falls, weakness or blurry vision Aiden Hematologic/Lymphatic: Negative for easy bleeding Endo Endo: Negative for fatigue or excessive sweating Psych Psych: Negative for anxiety or depression Allergy Allergy/Immunology: Negative for hives and Negative for rash Cardiology Exam Const Appearance: cooperative, healthy appearing, comfortable, no acute distress, well developed and well groomed Nutritional Appearance: average body habitus Orientation: alert, awake and oriented x3 Head Head: normal to inspection, normocephalic and atraumatic Ears: hearing grossly normal bilaterally Nose: external nose normal Face and Sinus: face symmetric Eyes Eyelids: eyelids normal Conjunctivae: conjunctivae normal Pupils: PERRL EOM: EOM intact bilaterally Neck Neck: normal visual inspection and full ROM Carotids: normal carotid upstroke Chest Chest inspection: normal inspection of the chest, symmetric chest movement and normal respiratory effort Auscultation: Bilateral: Clear to Auscultation Cardio Rhythm: irregular rhythm Heart sounds: S1 normal, S2 normal and murmur Murmur: Grade 3/6, harsh, mid systolic, LLSB, LVOT and sternal notch 2/6 soft systolic murmur at apex GI GI: normal to inspection, soft and bowel sounds present Neuro General: patient alert, patient awake, patient oriented x3 and moves all extremities Skin Skin: no rashes or lesions noted Extremities Pulses: Normal: Right Radial Pulse and Left Radial Pulse Lower Extremity Edema: None: Bilateral Psych Psychological: normal affect Assessment and Plan Assessment and Plan (1) Atrial fibrillation, permanent: Status: Chronic Orders: Orders: Echo Complete Today Plan - Dr. Heriberto Sanchez MD: At the present time he appears to be doing well with no acute symptoms or adverse events. He will continue his medical therapy which does include anticoagulant therapy (2) Nonrheumatic aortic (valve) stenosis: Status: Chronic Orders: Orders: Echo Complete Today Plan - Dr. Heriberto Sanchez MD: He will continue to have outpatient followed by history, exam, and future echocardiogram to monitor his aortic valve stenosis. (3) Hyperlipidemia: Status: Chronic Qualifiers: Hyperlipidemia type: unspecified Qualified Code(s): E78.5 - Hyperlipidemia, unspecified Orders: Orders: Echo Complete Today Plan - Dr. Heriberto Sanchez MD: A copy of his lipid labs will be requested for continuity of care. (4) Essential hypertension: Status: Chronic Orders: Orders: Echo Complete Today Plan - Dr. Heriberto Sanchez MD: Overall his blood pressures appear to be reasonably well controlled. He will continue his current medical management. Plan Details Other Orders: Orders: Echo Complete Today G45.9 Additional Comments: The above was discussed with the patient with his spouse present. Thank you for allowing me to participate in the care of your patient. Please don't hesitate to call if any issues arise. This note was generated using a voice recognition system and there may be incorrect words, spelling or punctuation that were not noted when reviewing the office note prior to saving. Follow Up: 6 Months (PFM) 03/25/21 (copy of PCP lipid labs) Coding Level of Care Code Off vis,est,level 4 Diagnoses Atrial fibrillation, permanent I48.2 Nonrheumatic aortic (valve) stenosis I35.0 Hyperlipidemia E78.5 Hyperlipidemia type: unspecified Essential hypertension I10 Coding Level of Care Code Off vis,est,level 4 Diagnoses Atrial fibrillation, permanent I48.2 Nonrheumatic aortic (valve) stenosis I35.0 Hyperlipidemia E78.5 Hyperlipidemia type: unspecified Essential hypertension I10 Supplemental Info Supplemental Information Transthoracic echocardiogram: 12-20-2019 Interpretation Summary Left ventricular systolic function is normal. The estimated ejection fraction is 55 %. The left atrium is severely enlarged. The right atrium is moderately enlarged. Mild diffuse mitral valve thickening. Mild (1+) mitral valve insufficiency. Mild to moderate (1-2+) tricuspid valve insufficiency. Moderate to severe aortic valve stenosis. Mild (1+) aortic valve insufficiency. Trivial pulmonic valve insufficiency. Right ventricular systolic pressure estimated to be 26 mmHg. Unable to assess diastolic dysfunction. Stress Test Report Date: 05-16-19 Procedure: Pharmacologic stress nuclear imaging study Indications: Atrial fibrillation; aortic valve stenosis Consent: Per the patient Procedure: The patient underwent pharmacologic (Regadenoson) evaluation with a peak heart rate of 90 beats per minute (64 %predicted maximal heart rate) and a peak blood pressure of 142/82 mmHg. The baseline ECG demonstrated atrial fibrillation; right bundle branch block pattern. The peak pharmacologic ECG demonstrated no obvious ECG changes. There was a rare PVC pretest. There was no complaint of chest discomfort during pharmacologic infusion or recovery. The examination was discontinued secondary to completion of protocol. Impression: 1. Pharmacologic (Regadenoson) evaluation 2. Peak pharmacologic ECG with no obvious ECG changes. 3. There was a rare PVC pretest. 4. Nuclear images pending Myocardial perfusion imaging study: Technique: The patient was injected with 11.1 millicuries of technetium 99m Cardiolite and subsequently rest SPECT Cardiolite nuclear imaging was obtained in the horizontal long, vertical long, and short axis views. The patient underwent pharmacologic (Regadenoson) evaluation with a peak heart rate of 90 beats per minute (64 % percent predicted maximal heart rate) and a peak blood pressure of 142/82 mmHg. The patient was injected with 32.5 millicuries of technetium 99m Cardiolite and subsequently stress SPECT Cardiolite nuclear imaging was obtained in the horizontal long, vertical long, and short axis views. A gated Cardiolite study at peak stress was obtained. Interpretation: Rest and stress SPECT Cardiolite nuclear imaging status post realignment, normalization, and attenuation correction demonstrate all area of diminished tracer uptake near the apical segments at rest which appears to be less prominent and/or normalize following stress. There is end systolic thickening and brightening. The gated Cardiolite study demonstrates myocardial thickening and inward wall motion. The reported LVEF is 62 %. Impression: 1. Rest and stress SPECT currently nuclear imaging demonstrate myocardial perfusion changes appearing compatible with the effects of shifting soft tissue attenuation/artifact and/or physiologic apical thinning with no myocardial perfusion changes considered diagnostic for associated stress-induced myocardial ischemia. 2. The gated Cardiolite study reports an LVEF of 62 %. Labs: LDL Cholesterol 52 mg/dL (0-130) HDL Cholesterol 51 mg/dL (40-) Triglycerides 115 mg/dL (-199) VLDL Cholesterol 23 mg/dL (5-40) Diagnostics: Electrocardiogram Echocardiogram Stress Test NM Stress Test Pulmonary: No Data to Display 03/25/21 [id number]<Electronically signed by Heriberto Sanchez MD>Date Heriberto Sanchez MD Cosigner Signature:Date (if applicable) CC: SQL DATABASE DEVELOPERJuanC Ute Walsh ~ I have examined the patient the following changes are noted: The patient underwent further evaluation with a transthoracic echocardiogram. This was performed on 04-06-2021. The results are as noted below. Interpretation Summary The study was technically difficult. Left ventricular systolic function is normal. The estimated ejection fraction is 55 %. Moderate concentric left ventricular hypertrophy. The left atrium is severely enlarged. The right atrium is moderately enlarged. Mild diffuse mitral valve thickening. The mitral papillary muscle appears thickened and/or calcified. Mild (1+) eccentric mitral valve insufficiency. Mild tricuspid valve insufficiency. Severe aortic valve stenosis. (based upon GUANACO) Mild (1+) aortic valve insufficiency. Mild (1+) pulmonic valve insufficiency. Right ventricular systolic pressure estimated to be 25 mmHg. Unable to assess diastolic dysfunction. The patient is scheduled to undergo further cardiovascular evaluation with diagnostic cardiac catheterization. The procedure and risk were discussed with him. He was agreeable to this approach. COVID (Procedure Consent) Procedure Criteria Procedure Criteria: Yes Elective The surgeon/proceduralist and patient have discussed in detail the risk of exposure to and/or potential harm posed by the COVID-19 virus with having a surgery/procedure at this time versus the risk of delaying the surgery/procedure. It is not possible to know either the risk of delaying the surgery or procedure or chance of getting an infection with perfect accuracy, but a joint decision was made between the patient and the surgeon/proceduralist to proceed at this time with the scheduled surgery/procedure as indicated on the consent form. I have re-examined the patient. There are no clinical changes since date of exam.
[2021-05-05 09:14] LABS: Absolute Lymphocyte Count 3.43 X10^3/uL (0.83-4.51); Absolute Neutrophil Count 6.5 X10^3/uL (2.0-7.7); Basophil# 0.13 X10^3/uL; Basophil% 1.1 % (0-1); Eosinophil# 0.35 X10^3/uL; Eosinophils% 3.1 % (0-5); Hemoglobin 17.5 g/dL (13.0-16.5); Lymphocyte # 3.43 X10^3/ul (0.83-4.51); Lymphocyte % 30.1 % (19-41); Mean Corpuscular Hgb 30.3 pg (27.0-32.0); Mean Corpuscular Volume 91.9 fL (80-94); Mean Platelet Vol. 9.6 fl (6.2-12.0); Monocyte# 0.91 X10^3/uL; NRBC Flagged by Analyzer 0 % (0-5); Neutrophil # 6.53 X10^3/uL (2.7-7.7); Neutrophil % 57.3 % (47-70); Platelet Count 220 K/mm3 (150-450); RBC Distribution Width CV 12.8 % (11.6-14.6); RBC Distribution Width SD 43.1 fl (35.1-43.9); Red Blood Count 5.77 M/mm3 (4.6-6.2); White Blood Count 11.4 K/mm3 (4.4-11.0)
[2021-05-05 10:46] LABS: Base Excess -2 mmol/L (-2 to +2); Bicarbonate 22.8 mmol/L (22-26); Blood Gas Specimen Type ART; PO2 88 mmHG (75-100); SO2 97 % (95-99); Total Carbon Dioxide 24 mmol/L
[2021-05-05 10:55] LABS: Blood Gas Specimen Type VEN; VBG BASE EXCESS -1 mmol/L (-1.0-3.5); VBG Bicarbonate 24 mmol/L (22-26); VBG PO2 41 mmHg (25-40); VBG SO2 76 % (50-70); VBG TCO2 26 mmol/L (23-33); VBG pCO2 40.7 mmHg (41-51); VBG pH 7.39 (7.32-7.42)
[2021-05-05 11:01] LABS: Blood Gas Specimen Type VEN; VBG BASE EXCESS 1 mmol/L (-1.0-3.5); VBG Bicarbonate 26 mmol/L (22-26); VBG PO2 33 mmHg (25-40); VBG SO2 61 % (50-70); VBG TCO2 28 mmol/L (23-33); VBG pCO2 46.2 mmHg (41-51); VBG pH 7.36 (7.32-7.42)
[2021-05-05 11:01] LABS: Blood Gas Specimen Type VEN; VBG BASE EXCESS 1 mmol/L (-1.0-3.5); VBG Bicarbonate 27 mmol/L (22-26); VBG PO2 31 mmHg (25-40); VBG SO2 57 % (50-70); VBG TCO2 28 mmol/L (23-33); VBG pCO2 47.4 mmHg (41-51); VBG pH 7.36 (7.32-7.42)
--- NOTE | 2021-05-05 12:29 | CL.D_ITS ---
Patient Name: SHREE MARCUM Study Date: 05/05/2021 Performing: Heriberto Sanchez MD Ht: 66.92 inches 170 cm : 1935 Wt: 149.91 lbs 68 kg Age: 85 Gender: male BSA: 1.79 PROCEDURE(S) PERFORMED CR86-EIM/LHC/COR/LV DC11-AO ROOT ANGIO WITH HEART CATH CLINICAL PROFILE AND INDICATIONS Indications: Valvular Disease Heart Failure: None Stress/Imaging Stress/Image Study Performed: No Angina Classification Anginal Classification w/in 2 Weeks: Anginal Equivalent Dyspnea CAD Presentations: Other: dyspnea on exertion CONCLUSIONS Right heart pressures - Normal The patient has normal pulmonary hemodynamics. Intracardiac shunting: None Normal Left Ventricular End Diastolic Pressure Global LV systolic dysfunction- Mild LVEF: by LV gram 50 % Aortic Valve Calcification- Moderate Aortic Valve Stenosis- Moderate Aortic Valve Insufficiency Moderate Mitral Valve Stenosis Mild - Moderate RECOMMENDATIONS Risk factor modification Medical therapy Consider further evaluation of Aortic / Mitral valve anatomy and physiology with NITA DESCRIPTION OF PROCEDURE The patient arrived to the procedure lab. The risks and benefits of the procedure as well as a full d escription of our services here and current unavailability of surgical backup were fully explained to the patient and/or their significant other prior to the catheterization. The Timeout was completed, verifying the correct patient and procedure. The patient's procedural site was prepped and draped in the usual fashion. Local anesthetic was given subcutaneously to right groin region with Lidocaine 2%. Using a modified Seldinger technique, arterial access was obtained via the right femoral artery, a 4 Fr sheath was inserted Venous access was obtained via the right femoral vein, a 7Fr sheath was insert ed A 7Fr thermal dilution catheter was inserted and right heart pressures were recorded, it was then advanced to PA position for cardiac outputs. O2 saturations were then obtained. Thermal dilution card iac outputs were then recorded. Right Ventriculography performed. Left Ventriculography was performed in CRAIN projection using a 4 Fr. Pigtail catheter. LV to AO pullback pressures were then recorded. The Thermal dilution catheter was then removed. Left Coronary Artery selective angiography was performed in multiple views using a 4 Fr. JL5 catheter. Right Coronary Artery selective angiogra phy was then performed in multiple views using a 4 Fr. 3DRC catheter. Ascending (root) aorta selectiv e angiography was then performed in single view. Ascending (root) aorta selective angiography was the n performed in single view.The arterial sheath was pulled and manual compression applied until hemost asis is achieved.. The venous sheath was then pulled and manual compression applied until hemostasis achieved CORONARY ANGIOGRAPHY DOMINANCE: Left Dominant LEFT HEART ASSESSMENT Left Ventricular Ejection Fraction: by LV Gram 50 % Global Hypokinesis Normal Left Ventricular End Diastolic Pressure LVEDP: 3 mmHg RIGHT HEART ASSESSMENT Thermal CO: 1.98 Thermal CI: 1.11 Sandro CO: 7.69 Sandro CI: 4.3 PW: /12 8 PA: 18/4 10 RV: 18/-2 2 RA: /0 0 PVR: 81 Aortic Valve Area: 1.25 Aortic Valve Index: 0.7 Aortic Valve Mean Gradient: 9 Mitral Valve Area: 1.63 Mitral Valve index: 0.91 Mitral Valve Mean Gradient: 11.7 Right Heart pressures - normal Intracardiac shunting: None LEFT MAIN: Angiographically normal LEFT ANTERIOR DESCENDING ARTERY: PROX LAD: Mild luminal irregularities CIRCUMFLEX ARTERY: Angiographically normal RAMUS: Angiographically normal RIGHT CORONARY ARTERY: PROX RCA: Mild luminal irregularities VALVE FINDINGS: Aortic Valve Calcification - moderate Aortic Valve Insufficiency: Grade 2 AORTIC ROOT: Dilated (possible) COMPLICATIONS No Complications PROCEDURE MEDICATIONS Versed 1 mg IV Oxygen: 2 L/min via nasal cannula SUMMARY OF HEMODYNAMIC DATA Time AIR REST ECG 09:28:11 RA /0 (0) 10:48:19 RV 18/-2, 2 10:49:16 PW /12 (8) PV 10:50:16 PA 18/4 (10) PA 10:50:32 LV 139/-10, 3 11:00:12 PW /9 (7) 11:00:12 LV 142/-12, 3 11:00:19 PW /7 (5) 11:00:19 LV 127/-5, 11 11:01:30 PW /27 (11) 11:01:30 LV 129/-6, 2 11:01:36 PW /24 (12) 11:01:36 LV 146/-4, 6 11:02:34 PW /11 (11) 11:02:34 LV 148/-5, 5 11:02:41 PW /13 (11) 11:02:41 LV 147/-3, 4 11:02:58 LV 151/-3, 7 11:03:04 LVp 150/2, 21 11:03:13 LVp 141/4, 12 11:03:14 LVp 150/13, 18 11:03:14 LVp 152/-3, 16 11:03:17 AOp 134/65 (91) 11:03:18 AOp 127/65 (89) 11:03:19 AOp 129/65 (89) 11:03:19 AOp 135/64 (91) 11:03:22 PA 26/8 (14) 11:03:55 RV 13/-1, 2 11:04:06 RV 24/-2, 1 11:04:11 RA /2 (1) 11:04:23 AO 113/68 (86) SA 11:07:10 RM AIR REST 11:34:27 Valve Area (c P-P/ms Time AIR REST Mitral 1.63 11.7 mn/131 ms2.0 pk/131 ms 11:00:19 1.25 11:03:14 Aortic 1.25 9.0 mn/140 ms23.0 pk/140 ms 11:03:14 Type SV CO (l/m) CI (l/m/ HR Time AIR REST Thermal 22.20 1.98 1.11 89 09:28:11 Sandro 86.40 7.69 4.30 89 09:28:11 Label % O2 Pres/Loc Time AIR REST AO 88 PV 10:44:09 IVC 75 SV 10:58:32 SVC 57 10:58:35 PA 61 PA 10:58:40 Signed By Heriberto Sanchez MD On 05/05/2021 12:28:26 Heriberto Sanchez MD
== END 2021-05-05 15:55 | disposition home or self-care (01) ==
PROVIDERS: PCP Nurse Practitioner Family; Referring Provider Internal Medicine Cardiovascular Disease; Visit Provider Internal Medicine Cardiovascular Disease
DX: I35.2 Nonrheumatic aortic (valve) stenosis with insufficiency (principal); I05.0 Rheumatic mitral stenosis; I48.21 Permanent atrial fibrillation; E78.5 Hyperlipidemia, unspecified; I10 Essential (primary) hypertension; G45.9 Transient cerebral ischemic attack, unspecified; Z79.02 Long term (current) use of antithrombotics/antiplatelets; Z79.899 Other long term (current) drug therapy
CPT/HCPCS: 36415; 71046; 80048; 82803; 85025; 85027; 85610; 85730; 93460; 93567; 99152; 99153; C1751; C1769; C1894; Q9967

== ENCOUNTER 2021-05-28 12:41 | Outpatient (CLI) | payer MEDICARE, SELFPAY ==
[2021-05-01 09:21] VITALS: BMI 23.6
[2021-05-28 14:02] LABS: Anion Gap 7 (5-15); BUN 19 mg/dL (7-18); Calcium,Total 8.8 mg/dL (8.5-10.1); Chloride 106 mmol/L (98-107); Creatinine, Serum 1.12 mg/dL (0.70-1.30); EST Glomerular Filtration Rate 66 mL/min (>60); Est Glom Filt Rate - Afr Amer 80 mL/min (>60); Glucose 96 mg/dL (74-106); Potassium 3.9 mmol/L (3.5-5.1); Sodium Level 140 mmol/L (136-145)
--- NOTE | 2021-05-29 07:27 | PCM.HP.BLA ---
History and Physical Date of Admission: 05/29/21 [facility] [address] [place] [address] [phone] OFFICE VISITDate of Service: 03/25/21 MR#:[id number]: SHREE MARCUM DRep #:[id number] Provider:Dr. Heriberto Sanchez, DEBge/Sex: 85/M [facility] History of Present Illness Details: This is a 85-year-old white male who presents today for outpatient cardiovascular follow-up of his history of atrial fibrillation-permanent, aortic valve stenosis, hyperlipidemia, and hypertension. Overall he states he has done well with no ongoing issues of rapid heart rate sensations and no syncopal events. There is been no concerning chest discomfort or difficulty breathing at rest or with exertion. He states he has not required any additional cardiovascular testing. He does believe his PCP group checked his lipid labs earlier this year. He brings with him his home heart rate and blood pressure recording diary. Overall his recordings appear to be within acceptable ranges. He is noted to have an occasional low and an occasional high blood pressure. 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 Accompanied by: Allergies terazosin Allergy (Verified 03/25/21 11:18) lower blood pressure Medications simvastatin 40 mg tablet 40 mg PO QPM 12/19/17 [History Confirmed 03/25/21] metoprolol tartrate 25 mg tablet 25 mg PO BID tab 11/29/18 [History Confirmed 03/25/21] alendronate 35 mg tablet 35 mg PO QWEEK 03/28/19 [History Confirmed 03/25/21] rivaroxaban 20 mg tablet 20 mg PO QDAY #90 tab 10/16/20 [Rx Confirmed 03/25/21] amlodipine 2.5 mg-benazepril 10 mg capsule 1 cap PO DAILY #90 cap 02/26/21 [Rx Confirmed 03/25/21] PFSH Medical History A-fib Atrial fibrillation, permanent BPH (benign prostatic hyperplasia) Essential hypertension Hyperlipidemia Hypertension Nonrheumatic aortic (valve) stenosis Paroxysmal atrial fibrillation Pneumonia 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 Transient cerebral ischemia Surgical History History of endarterectomy History of hernia repair Family History Mother Hypertension Father Hypertension CVA (cerebral vascular accident) Sister Hypertension Brother Cancer Heart disease CVA (cerebral vascular accident) Dementia Social History Smoking Status: Never smoker alcohol intake: current details: occasional substance use type: does not use caffeine: No ROS Const Const: Negative for fatigue, weakness, frequent falls, excessive sweating, weight gain or weight loss Eyes Eyes: Negative for transient loss of vision, blurry vision or change in vision ENT ENT: Negative for dizziness or balance problems Cardio Chest Pain: No Palpitations: No Edema: None Muscle aches with walking: None Resp Respiratory: Positive for SOB with activity (baseline); Negative for SOB at rest GI GI: Negative vomiting or vomiting blood/hematemesis : Negative for hematuria Musc Musc: Negative for muscle aches/ myalgia, muscle weakness, joint pain or balance problems Skin Skin: Negative non-healing lesions or rash Neuro Neuro: Negative for dizziness, lightheadedness, orthostatic symptoms, frequent falls, weakness or blurry vision Aiden Hematologic/Lymphatic: Negative for easy bleeding Endo Endo: Negative for fatigue or excessive sweating Psych Psych: Negative for anxiety or depression Allergy Allergy/Immunology: Negative for hives and Negative for rash Cardiology Exam Const Appearance: cooperative, healthy appearing, comfortable, no acute distress, well developed and well groomed Nutritional Appearance: average body habitus Orientation: alert, awake and oriented x3 Head Head: normal to inspection, normocephalic and atraumatic Ears: hearing grossly normal bilaterally Nose: external nose normal Face and Sinus: face symmetric Eyes Eyelids: eyelids normal Conjunctivae: conjunctivae normal Pupils: PERRL EOM: EOM intact bilaterally Neck Neck: normal visual inspection and full ROM Carotids: normal carotid upstroke Chest Chest inspection: normal inspection of the chest, symmetric chest movement and normal respiratory effort Auscultation: Bilateral: Clear to Auscultation Cardio Rhythm: irregular rhythm Heart sounds: S1 normal, S2 normal and murmur Murmur: Grade 3/6, harsh, mid systolic, LLSB, LVOT and sternal notch 2/6 soft systolic murmur at apex GI GI: normal to inspection, soft and bowel sounds present Neuro General: patient alert, patient awake, patient oriented x3 and moves all extremities Skin Skin: no rashes or lesions noted Extremities Pulses: Normal: Right Radial Pulse and Left Radial Pulse Lower Extremity Edema: None: Bilateral Psych Psychological: normal affect Assessment and Plan Assessment and Plan (1) Atrial fibrillation, permanent: Status: Chronic Orders: Orders: Echo Complete Today Plan - Dr. Heriberto Sanchez MD: At the present time he appears to be doing well with no acute symptoms or adverse events. He will continue his medical therapy which does include anticoagulant therapy (2) Nonrheumatic aortic (valve) stenosis: Status: Chronic Orders: Orders: Echo Complete Today Plan - Dr. Heriberto Sanchez MD: He will continue to have outpatient followed by history, exam, and future echocardiogram to monitor his aortic valve stenosis. (3) Hyperlipidemia: Status: Chronic Qualifiers: Hyperlipidemia type: unspecified Qualified Code(s): E78.5 - Hyperlipidemia, unspecified Orders: Orders: Echo Complete Today Plan - Dr. Heriberto Sanchez MD: A copy of his lipid labs will be requested for continuity of care. (4) Essential hypertension: Status: Chronic Orders: Orders: Echo Complete Today Plan - Dr. Heriberto Sanchez MD: Overall his blood pressures appear to be reasonably well controlled. He will continue his current medical management. Plan Details Other Orders: Orders: Echo Complete Today G45.9 Additional Comments: The above was discussed with the patient with his spouse present. Thank you for allowing me to participate in the care of your patient. Please don't hesitate to call if any issues arise. This note was generated using a voice recognition system and there may be incorrect words, spelling or punctuation that were not noted when reviewing the office note prior to saving. Follow Up: 6 Months (PFM) 03/25/21 (copy of PCP lipid labs) Coding Level of Care Code Off vis,est,level 4 Diagnoses Atrial fibrillation, permanent I48.2 Nonrheumatic aortic (valve) stenosis I35.0 Hyperlipidemia E78.5 Hyperlipidemia type: unspecified Essential hypertension I10 Coding Level of Care Code Off vis,est,level 4 Diagnoses Atrial fibrillation, permanent I48.2 Nonrheumatic aortic (valve) stenosis I35.0 Hyperlipidemia E78.5 Hyperlipidemia type: unspecified Essential hypertension I10 Supplemental Info Supplemental Information Transthoracic echocardiogram: 12-20-2019 Interpretation Summary Left ventricular systolic function is normal. The estimated ejection fraction is 55 %. The left atrium is severely enlarged. The right atrium is moderately enlarged. Mild diffuse mitral valve thickening. Mild (1+) mitral valve insufficiency. Mild to moderate (1-2+) tricuspid valve insufficiency. Moderate to severe aortic valve stenosis. Mild (1+) aortic valve insufficiency. Trivial pulmonic valve insufficiency. Right ventricular systolic pressure estimated to be 26 mmHg. Unable to assess diastolic dysfunction. Stress Test Report Date: 05-16-19 Procedure: Pharmacologic stress nuclear imaging study Indications: Atrial fibrillation; aortic valve stenosis Consent: Per the patient Procedure: The patient underwent pharmacologic (Regadenoson) evaluation with a peak heart rate of 90 beats per minute (64 %predicted maximal heart rate) and a peak blood pressure of 142/82 mmHg. The baseline ECG demonstrated atrial fibrillation; right bundle branch block pattern. The peak pharmacologic ECG demonstrated no obvious ECG changes. There was a rare PVC pretest. There was no complaint of chest discomfort during pharmacologic infusion or recovery. The examination was discontinued secondary to completion of protocol. Impression: 1. Pharmacologic (Regadenoson) evaluation 2. Peak pharmacologic ECG with no obvious ECG changes. 3. There was a rare PVC pretest. 4. Nuclear images pending Myocardial perfusion imaging study: Technique: The patient was injected with 11.1 millicuries of technetium 99m Cardiolite and subsequently rest SPECT Cardiolite nuclear imaging was obtained in the horizontal long, vertical long, and short axis views. The patient underwent pharmacologic (Regadenoson) evaluation with a peak heart rate of 90 beats per minute (64 % percent predicted maximal heart rate) and a peak blood pressure of 142/82 mmHg. The patient was injected with 32.5 millicuries of technetium 99m Cardiolite and subsequently stress SPECT Cardiolite nuclear imaging was obtained in the horizontal long, vertical long, and short axis views. A gated Cardiolite study at peak stress was obtained. Interpretation: Rest and stress SPECT Cardiolite nuclear imaging status post realignment, normalization, and attenuation correction demonstrate all area of diminished tracer uptake near the apical segments at rest which appears to be less prominent and/or normalize following stress. There is end systolic thickening and brightening. The gated Cardiolite study demonstrates myocardial thickening and inward wall motion. The reported LVEF is 62 %. Impression: 1. Rest and stress SPECT currently nuclear imaging demonstrate myocardial perfusion changes appearing compatible with the effects of shifting soft tissue attenuation/artifact and/or physiologic apical thinning with no myocardial perfusion changes considered diagnostic for associated stress-induced myocardial ischemia. 2. The gated Cardiolite study reports an LVEF of 62 %. Labs: LDL Cholesterol 52 mg/dL (0-130) HDL Cholesterol 51 mg/dL (40-) Triglycerides 115 mg/dL (-199) VLDL Cholesterol 23 mg/dL (5-40) Diagnostics: Electrocardiogram Echocardiogram Stress Test NM Stress Test Pulmonary: No Data to Display 03/25/21 0988<Electronically signed by Heriberto Sanchez MD>Date Heriberto Sanchez MD Cosigner Signature:Date (if applicable) CC: [employer] AIRCREW[employer] MECHANICALJuanC Ute Walsh ~ I have examined the patient the following changes are noted: The patient has undergone additional evaluation with diagnostic cardiac catheterization. This was performed on 05-05-2021. The results are as noted below. CONCLUSIONS Right heart pressures - Normal The patient has normal pulmonary hemodynamics. Intracardiac shunting: None Normal Left Ventricular End Diastolic Pressure Global LV systolic dysfunction- Mild LVEF: by LV gram 50 % Aortic Valve Calcification- Moderate Aortic Valve Stenosis- Moderate Aortic Valve Insufficiency Moderate Mitral Valve Stenosis Mild - Moderate RECOMMENDATIONS Risk factor modification Medical therapy Consider further evaluation of Aortic / Mitral valve anatomy and physiology with NITA DESCRIPTION OF PROCEDURE The patient arrived to the procedure lab. The risks and benefits of the procedure as well as a full description of our services here and current unavailability of surgical backup were fully explained to the patient and/or their significant other prior to the catheterization. The Timeout was completed, verifying the correct patient and procedure. The patient's procedural site was prepped and draped in the usual fashion. Local anesthetic was given subcutaneously to right groin region with Lidocaine 2%. Using a modified Seldinger technique, arterial access was obtained via the right femoral artery, a 4Fr sheath was inserted Venous access was obtained via the right femoral vein, a 7Fr sheath was inserted A 7Fr thermal dilution catheter was inserted and right heart pressures were recorded, it was then advanced to PA position for cardiac outputs. O2 saturations were then obtained. Thermal dilution cardiac outputs were then recorded. Right Ventriculography performed. Left Ventriculography was performed in CRAIN projection using a 4 Fr. Pigtail catheter. LV to AO pullback pressures were then recorded. The Thermal dilution catheter was then removed. Left Coronary Artery selective angiography was performed in multiple views using a 4 Fr. JL5 catheter. Right Coronary Artery selective angiography was then performed in multiple views using a 4 Fr. 3DRC catheter. Ascending (root) aorta selective angiography was then performed in single view. Ascending (root) aorta selective angiography was then performed in single view.The arterial sheath was pulled and manual compression applied until hemostasis is achieved.. The venous sheath was then pulled and manual compression applied until hemostasis achieved CORONARY ANGIOGRAPHY DOMINANCE: Left Dominant LEFT HEART ASSESSMENT Left Ventricular Ejection Fraction: by LV Gram 50 % Global Hypokinesis Normal Left Ventricular End Diastolic Pressure LVEDP: 3 mmHg RIGHT HEART ASSESSMENT Thermal CO: 1.98 Thermal CI: 1.11 Sandro CO: 7.69 Sandro CI: 4.3 PW: /12 8 PA: 18/4 10 RV: 18/-2 2 RA: /0 0 PVR: 81 Aortic Valve Area: 1.25 Aortic Valve Index: 0.7 Aortic Valve Mean Gradient: 9 Mitral Valve Area: 1.63 Mitral Valve index: 0.91 Mitral Valve Mean Gradient: 11.7 Right Heart pressures - normal Intracardiac shunting: None LEFT MAIN: Angiographically normal LEFT ANTERIOR DESCENDING ARTERY: PROX LAD: Mild luminal irregularities CIRCUMFLEX ARTERY: Angiographically normal RAMUS: Angiographically normal RIGHT CORONARY ARTERY: PROX RCA: Mild luminal irregularities VALVE FINDINGS: Aortic Valve Calcification - moderate Aortic Valve Insufficiency: Grade 2 AORTIC ROOT: Dilated (possible) Based upon review of the patient's noninvasive and invasive studies it was recommended the patient undergo further evaluation of his valvular anatomy and physiology with a transesophageal echocardiogram. The procedure and risk were discussed with the patient. He was agreeable to this approach. This note was generated using a voice recognition system and there may be incorrect words, spelling or punctuation that were not noted when reviewing the office note prior to saving.
--- NOTE | 2021-05-29 08:58 | ECHOTEE_ITS ---
Reason For Study: Medication NITA probe 6VT-D (SN [id number]) passed without difficulty. No complications were noted. Cetacaine Topical Ayer given X4 orally. Versed 1 mg given slow IVP. Fentanyl 50 mcg given slow IVP. Performed a rapid injection of agitated mix of 9 cc saline and 1cc air to assess for atrial septal defect. Left Ventricle Normal LV size. Mild global left ventricular systolic dysfunction. The estimated ejection fraction is 45 %. Right Ventricle Normal RV size. The right ventricular wall motion is normal. Atria No doppler evidence for ASD. Bubble contrast study negative for right to left interatrial shunt. The left atrium is severely enlarged. There is severe sponatenous contrast in the left atrium. 2D echocardiographic findings of the left atrial appendage suggest spontaneous contrast in the appearance of a prethrombotic state. The right atrium is moderately enlarged. There is moderate sponatenous contrast in the right atrium. No RA/appendage thrombus identified. Mitral Valve There is no mitral annular calcification. Mild diffuse mitral valve thickening. Mild (1+) mitral valve insufficiency. Tricuspid Valve Mild diffuse thickening of the tricuspid valve. Mild tricuspid valve insufficiency. Aortic Valve Trisinus/trileaflet aortic valve. Moderate diffuse aortic valve thickening. Severe diffuse aortic valve calcification. Aortic valve area: Planimetry: 0.4 cm??. Moderate (2+) aortic valve insufficiency. Pulmonic Valve The pulmonic valve is not well visualized. Vessels Mild atherosclerosis of the descending aorta. Pericardium No pericardial effusion. ECHO/Echo Transesophageal (NITA) Interpretation Summary Mild global left ventricular systolic dysfunction. The estimated ejection fraction is 45 %. The left atrium is severely enlarged. There is severe sponatenous contrast in the left atrium. 2D echocardiographic findings of the left atrial appendage suggest spontaneous contrast in the appearance of a prethrombotic state. The right atrium is moderately enlarged. There is moderate sponatenous contrast in the right atrium. Mild diffuse mitral valve thickening. Mild (1+) mitral valve insufficiency. Mild diffuse thickening of the tricuspid valve. Mild tricuspid valve insufficiency. Moderate diffuse aortic valve thickening. Severe diffuse aortic valve calcification. Aortic valve area: Planimetry: 0.4 cm?? Moderate (2+) aortic valve insufficiency. Bubble contrast study negative for right to left interatrial shunt. Mild atherosclerosis of the descending aorta. Ordering Physician: Heriberto Sanchez Referring Physician: Ute Walsh Performed By: Sarah Fairchild, PAULETTE, RVT
== END 2021-05-29 12:20 | disposition home or self-care (01) ==
PROVIDERS: PCP Nurse Practitioner Family; Referring Provider Internal Medicine Cardiovascular Disease; Visit Provider Internal Medicine Cardiovascular Disease
DX: I35.0 Nonrheumatic aortic (valve) stenosis (principal); I48.20 Chronic atrial fibrillation, unspecified; I10 Essential (primary) hypertension; Z86.79 Personal history of other diseases of the circulatory system
CPT/HCPCS: 36415; 80048; 87426; 93312; 93320; 93325; C9803; J7040; A4216

== ENCOUNTER 2021-10-11 23:22 | Inpatient (IN) | payer MEDICARE, SELFPAY ==
[2021-10-11 23:23] VITALS: BP 122/62; PULSE 112; RESP 16; TEMP 36.4; O2SAT 98; BMI 23.8
[2021-10-12] VITALS (17 sets, daily range): BP systolic 75–149; BP diastolic 35–77; PULSE 69–109; RESP 12–23; TEMP 36.1–36.6; O2SAT 94–100; BMI 23.9
--- NOTE | 2021-10-12 00:11 | EDS_ITS ---
HPI HPI - GI History of Present Illness Chief Complaint: GI Bleed Informant: patient and family Abdominal Pain/Flank Pain Onset: Today and Hours Context: Sudden Onset Timing: Intermittent Current Severity: Mild Maximum Severity: Mild Nausea/Vomiting/Emesis GI Symptom: Positive for Nausea and Vomiting Onset: Today Severity: Mild Diarrhea/Melena/Hematochezia GI Symptom: Negative for Diarrhea, Melena and Hematochezia Associated Symptoms Associated Symptoms: Negative for Dysuria, Frequency and Hematuria Narrative Narrative: 86-year-old male on Xarelto due to history of A. fib and a recent TAVR procedure done in [place], [place] in July. States has been doing well. Today had nausea and vomiting x1 in the last several hours and threw up a small amount of bright red blood. He denies any abdominal pain. States he threw up blood the first time he threw up. It does not sound like a Meg-Stephenson tear. Denies any recent melena. No coffee-ground emesis. No bright red blood per rectum. 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 Home Medications simvastatin 40 mg tablet 40 mg PO QPM 12/19/17 [History Last Taken Unknown] metoprolol tartrate 25 mg tablet 25 mg PO BID tab 11/29/18 [History Last Taken 05/05/21] alendronate 35 mg tablet 35 mg PO QWEEK 03/28/19 [History Last Taken Unknown] rivaroxaban 20 mg tablet 20 mg PO QDAY #90 tab 10/16/20 [Rx Last Taken 05/01/21] amlodipine 2.5 mg-benazepril 10 mg capsule 1 cap PO DAILY #90 cap 02/26/21 [Rx Last Taken 05/05/21] aspirin 81 mg tablet,delayed release 81 mg PO DAILY 04/10/21 [History Last Taken 05/05/21] Allergy/AdvReac Type Severity Reaction Status Date / Time terazosin Allergy lower Verified 03/25/21 11:18 blood pressure Family History Mother Hypertension Father Hypertension CVA (cerebral vascular accident) Sister Hypertension Brother Cancer Heart disease CVA (cerebral vascular accident) Dementia Surgical History History of endarterectomy History of hernia repair Social History Smoking Status: Never smoker alcohol intake: current details: occasional substance use type: does not use caffeine: No ROS ROS ED ROS Narrative Nausea and vomiting of blood. Review of Systems ROS Unobtainable: Denies due to encephalopathy Constitutional Constitutional ED: Denies fever(s) ENT ENT ED: Denies ear pain Cardiovascular Cardiovascular: Denies chest pain Respiratory/Chest Respiratory/Chest: Denies dyspnea Gastrointestinal Gastrointestinal: Reports constipation, nausea and vomiting; Denies abdominal pain, diarrhea or melena Genitourinary Genitourinary ED: Denies dysuria Musculoskeletal Musculoskeletal: Denies myalgias Integumentary Denies rash Neurologic Neurologic: Denies headache(s) Psychiatric Psychiatric: Denies depression Endocrine Endocrinology: Denies polyuria Hematologic/Lymphatic Hematologic/Lymphatic: Denies easy bruising Allergic/Immunologic Allergic/Immunologic ED: Denies urticaria EXAM Physical Exam Narrative Exam Narrative: 86-year-old male no acute distress vital signs stable afebrile. Patient does not look septic or toxic. HEENT exam unremarkable. Posterior pharynx moist and pink no blood. Neck nontender. Lungs are clear. Heart regular rhythm rate about 100 no murmur. Abdomen soft nontender nondistended, normal bowel sounds no peritoneal signs. Moving all 4 extremities. Nontender no edema. Back nontender. Neurologically is awake and alert with no focal mot or deficits. Const Vital Signs: 10/11/21 23:23 10/12/21 01:16 Temperature 97.6 F L Temperature Source Oral Pulse Rate 112 H 101 H Respiratory Rate 16 18 Blood Pressure 122/62 H 91/65 Blood Pressure Mean 82 73 Pulse Ox 98 99 Oxygen Delivery Method Room Air Room Air Positive well nourished and well developed; Negative for obese, cachectic, contractures or unkempt General Appearance ED: well developed and NAD; Negative for unkempt, cachectic, contractures or pallor Nutritional Appearance: Negative for cachectic or obese HEENT Reports moist mucous membranes normocephalic and atraumatic; Negative for trauma or tenderness Eyes PERRL and EOMs intact bilaterally Neck no lymphadenopathy, supple and no JVD General: Negative for tenderness Resp normal respiratory effort and clear to auscultation bilaterally Auscultation: Negative for rales, rhonchi or wheezes Cardio regular rate, regular rhythm, S1 normal heart sound and no murmurs GI non-tender, non-distended and no masses Auscultation: normoactive bowel sounds Palpation: soft; Negative for tender, guarding or rigid Back/Spine no CVA tenderness General Back: Negative for CVA tenderness Cervical Spine: Negative for cervical spine tenderness Thoracic Spine / Upper Back: Negative for thoracic spinal tenderness Extremity full ROM General Extremety ED: Negative for edema or tenderness General Extremity: Negative for edema Neuro moves all extremities Sensorium / Orientation: alert, oriented to person, oriented to place and oriented to time; Negative for orientation impaired, confused, lethargic or stuporous Motor Exam: strength 5/5 throughout Psych mental status grossly normal and thought process normal Appearance: Negative for unkempt Skin no wounds General Skin Exam: Negative for jaundice or pallor Lesions: no lesions Rashes: no rashes MDM MDM MDM Narrative Medical decision making narrative: 86-year-old male said he had nausea and vomiting and throat bright red blood. This does not sound like a Meg-Stephenson tear. He threw up blood the first time he threw up. He will be given IV Protonix labs are being obtained. He is on Xarelto. Repeat exam patient is doing well at 1:45 AM. About 10 minutes prior he had been vomiting and had additional bright red blood and clots. Currently stable his blood pressure is 120/94. Says he feels fine. I have already spoken to the hospitalist I have the transition lead on page. He will not need to be admitted for upper endoscopy. Lab Data Attestation: I reviewed the patient's lab results. Lab results narrative: CBC shows a white count 12.3. Hemoglobin 14.8. Hematocrit 14.5. Platelets 229. PT 32 INR 3.3 PTT of 42. Chemistry panel shows a potassium of 5.4 gap of 5 BUN of 37 creatinine 1.2 which may be consistent with an upper GI bleed. Glucose 137. Patient has been typed and screened. Labs: Laboratory Results - last 24 hr 10/11/21 10/11/21 10/11/21 23:33 23:33 23:33 WBC 12.3 H RBC 4.76 Hgb 14.8 Hct 44.5 MCV 93.5 MCH 31.1 MCHC 33.3 RDW Std Deviation 44.4 H RDW Coeff of Lawrence 13.1 Plt Count 229 MPV 10.5 PT 32.4 H INR 3.3 APTT 42.6 H Sodium 140 Potassium 5.4 H Chloride 106 Carbon Dioxide 29.0 Anion Gap 5 BUN 37 H Creatinine 1.20 Estim Creat Clear Calc 42.84 Est GFR (MDRD) Af Amer 74 Est GFR (MDRD) Non-Af 61 BUN/Creatinine Ratio 30.8 H Glucose 137 H Calcium 9.0 Blood Type Antibody Screen Crossmatch 10/11/21 10/11/21 23:33 23:33 WBC RBC Hgb Hct MCV MCH MCHC RDW Std Deviation RDW Coeff of Lawrence Plt Count MPV PT INR APTT Sodium Potassium Chloride Carbon Dioxide Anion Gap BUN Creatinine Estim Creat Clear Calc Est GFR (MDRD) Af Amer Est GFR (MDRD) Non-Af BUN/Creatinine Ratio Glucose Calcium Blood Type A POSITIVE Antibody Screen NEGATIVE Crossmatch See Detail Discharge Plan Dx/Rx/DC Orders Clinical Impression: Acute upper gastrointestinal bleeding, Anticoagulated, History of atrial fibrillation Disposition Disposition: Acute Care Hospital [facility]
[2021-10-12 00:31] LABS: Hematocrit 44.5 % (40-54); Hemoglobin 14.8 g/dL (13.0-16.5); Mean Corp Hgb Conc 33.3 g/dL (32-36); Mean Corpuscular Hgb 31.1 pg (27.0-32.0); Mean Corpuscular Volume 93.5 fL (80-94); Mean Platelet Vol. 10.5 fl (6.2-12.0); Platelet Count 229 K/mm3 (150-450); RBC Distribution Width CV 13.1 % (11.6-14.6); RBC Distribution Width SD 44.4 fl (35.1-43.9); Red Blood Count 4.76 M/mm3 (4.6-6.2); White Blood Count 12.3 K/mm3 (4.4-11.0)
[2021-10-12 00:56] LABS: Anion Gap 5 (5-15); BUN 37 mg/dL (7-18); BUN/Creat Ratio 30.8 RATIO (10-20); Chloride 106 mmol/L (98-107); EST Glomerular Filtration Rate 61 mL/min (>60); Est Glom Filt Rate - Afr Amer 74 mL/min (>60); Estimated Creatinine Clearance 42.84 ml/min; Glucose 137 mg/dL (74-106); Potassium 5.4 mmol/L (3.5-5.1); Sodium Level 140 mmol/L (136-145)
[2021-10-12 01:12] LABS: International Normalized Ratio 3.3; Partial Thromboplast Time 42.6 Seconds (24.1-36.2); Prothrombin Time (Protime)PT. 32.4 SECONDS (11.7-14.9)
--- NOTE | 2021-10-12 01:55 | HP.PCM.HOS_ITS ---
HPI - General General Date of Admission: 10/12/21 HPI Narrative SHREE MARCUM, is a 86 M with a significant history of atrial fibrillation on Xarelto; and TAVR on August 12, 2021 who presents to emergency department with hematemesis that started few hours before presentation. Reportedly he vomited about double shot glass of blood before presentation. And at the emergency department reportedly he vomited about 180 mL of blood too. 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 Home Medications simvastatin 40 mg tablet 40 mg PO QPM 12/19/17 [History Last Taken Unknown] metoprolol tartrate 25 mg tablet 25 mg PO BID tab 11/29/18 [History Last Taken 05/05/21] alendronate 35 mg tablet 35 mg PO QWEEK 03/28/19 [History Last Taken Unknown] rivaroxaban 20 mg tablet 20 mg PO QDAY #90 tab 10/16/20 [Rx Last Taken 05/01/21] amlodipine 2.5 mg-benazepril 10 mg capsule 1 cap PO DAILY #90 cap 02/26/21 [Rx Last Taken 05/05/21] aspirin 81 mg tablet,delayed release 81 mg PO DAILY 04/10/21 [History Last Taken 05/05/21] Allergy/AdvReac Type Severity Reaction Status Date / Time terazosin Allergy lower Verified 03/25/21 11:18 blood pressure Family History Mother Hypertension Father Hypertension CVA (cerebral vascular accident) Sister Hypertension Brother Cancer Heart disease CVA (cerebral vascular accident) Dementia Surgical History History of endarterectomy History of hernia repair Social History Smoking Status: Never smoker alcohol intake: current details: occasional substance use type: does not use caffeine: No ROS ROS Narrative Constitutional: Denies fever, chills, fatigue, anorexia and change in weight Eyes: Denies blurry vision, change in eye color, change in vision, discharge from eye(s), double vision, erythema, eye pain, loss of vision or other HEENT: Denies abnormal hearing, dysphagia, ear pain, epistaxis, headache(s), hearing loss, nasal congestion, nasal discharge, post nasal drip, sinus pr essure, sore throat or other Cardiovascular: Denies chest pain or palpitations. Denies dyspnea on exertion, orthopnea and paroxysmal nocturnal dyspnea Respiratory/Chest: Denies cough, excessive phlegm production, shortness of breath with exertion and wheezing Gastrointestinal: Reports hematemesis and constipation. Denies abdominal pain. Genitourinary: Denies burning urination, difficulty urinating, dysuria, hematuria, nocturia, urinary frequency, urinary hesitancy, urinary incontinence, urinary urgency or other Musculoskeletal: Denies arthralgias, back pain, joint pain, joint stiffness, joint swelling, myalgias, neck pain or other Neurologic: Denies abnormal gait, abnormal speech, confusion, disequilibrium, dizziness, focal weakness, headache(s), numbness, paresthesias, seizure-like activity, seizures, syncope, tingling, tremor(s) or other Psychiatric: Denies anxiety, depression, homicidal ideation, suicidal ideation or other Endocrinology: Denies change in body appearance, cold intolerance, excessive sweating, heat intolerance, polydipsia, polyuria or other Hematologic/Lymphatic: Denies anemia, easy bleeding, easy bruising, lymphadenopathy or other Integumentary: Denies rashes Allergic/Immunologic: Denies rhinitis, hives, eczema, asthma or other Vital Signs Vital Signs Vital Signs: 10/11/21 23:23 10/12/21 01:16 10/12/21 01:53 Temperature 97.6 F L 97.1 F L Temperature Source Oral Temporal Pulse Rate 112 H 101 H 87 Respiratory Rate 16 18 23 H Blood Pressure 122/62 H 91/65 106/73 Blood Pressure Mean 82 73 84 Pulse Ox 98 99 100 Oxygen Delivery Method Room Air Room Air Room Air Weight Weight: 69.2 kg Body Mass Index (BMI) 23.8 Physical Exam Narrative Physical exam: General: Well-nourished, well-developed. Head: Normocephalic, atraumatic, no tenderness Eyes: PERRLA, EOMI ENT, no trauma, moist mucous membranes, no rhinorrhea Neck: Nontender, full range of motion, no spinal tenderness, deformities, step- off CVS: Regular rate and rhythm. S1-S2 present. No murmur, gallop or rub. Respiratory : clear to auscultation bilaterally, chest wall nontender, no wheezing Abdomen: Soft, nontender, nondistended, normal bowel sounds, no masses : Deferred Back: Nontender, no CVA tenderness, no midline spinal tenderness, deformities, step-offs Extremities: Nontender full range of motion, no trauma Skin: Normal color, no trauma, abrasions Neuro: Alert, oriented, cranial nerves II through XII grossly intact. Psychiatry: Normal mood. Normal affect. Not depressed. Not anxious. Results Lab / Micro Data Result Diagrams: 10/11/21 23:33 10/11/21 23:33 Labs: Laboratory Results - last 24 hr 10/11/21 23:33: WBC 12.3 H, RBC 4.76, Hgb 14.8, Hct 44.5, MCV 93.5, MCH 31.1, MCHC 33.3, RDW Std Deviation 44.4 H, RDW Coeff of Lawrence 13.1, Plt Count 229, MPV 10.5 10/11/21 23:33: PT 32.4 H, INR 3.3, APTT 42.6 H 10/11/21 23:33: Sodium 140, Potassium 5.4 H, Chloride 106, Carbon Dioxide 29.0, Anion Gap 5, BUN 37 H, Creatinine 1.20, Estim Creat Clear Calc 42.84, Est GFR (MDRD) Af Amer 74, Est GFR (MDRD) Non-Af 61, BUN/Creatinine Ratio 30.8 H, Glucose 137 H, Calcium 9.0 10/11/21 23:33: Blood Type A POSITIVE, Antibody Screen NEGATIVE Assessment & Plan Assessment/Plan (1) Acute upper gastrointestinal bleeding: (2) History of atrial fibrillation: PLAN: Acute blood loss anemia secondary to acute upper gastrointestinal bleed Review of labs showed hemoglobin of 14.8 which later dropped to 11.5. Review of previous records shows that on 04/28/2021 hemoglobin was 18 and on 05/05/2021 hemoglobin was 17.5. BUN is elevated at 37. Admit to monitored bed on MedSurg Received normal saline bolus at the emergency department as her systolic blood pressure dropped to 91. Maintain a IV fluids H&H every 6 hours Hold Xarelto. Hold aspirin. No anticoagulants for DVT prophylaxis SCD Protonix bolus ordered emergent department. Protonix drip ordered. GI consult. Hyperkalemia Review of labs showed potassium of 5.4; BUN of 37. Creatinine of 1.20. With IV fluids expect potassium will normalize. Trend BMP History of hypertension Patient systolic blood pressure dropped to 91 emergency department. Hold all home blood pressure medications. Trend blood pressures. IV fluid as above. DVT prophylaxis: SCD ordered Charges/Coding Visit Charges Inpatient E&M: 26745 Init Hosp L2
[2021-10-12 02:15] LABS: Hematocrit 35.3 % (40-54); Hemoglobin 11.5 g/dL (13.0-16.5)
[2021-10-12] MEDS: 0.9% Normal Saline 1,000 ML 75 ML IV (02:51)
--- NOTE | 2021-10-12 04:43 | PCS.PANDOC ---
PANDEMIC DOCUMENTATION INITIATED: Date: 10/12/2021 Time: 230
[2021-10-12] MEDS: 0.9% Saline Lock 10 ML Syringe IV (05:50)
[2021-10-12] MEDS: Ondansetron 4 MG/2 ML Vial IV (06:13)
--- NOTE | 2021-10-12 06:15 | NURSING ---
APROX 100ML OF MARK RED BLOOD EMESIS FROM PT. MEDICATED W/ZOFRAN.
[2021-10-12 06:29] LABS: Hematocrit 36.5 % (40-54); Hemoglobin 11.6 g/dL (13.0-16.5)
[2021-10-12 06:50] LABS: Anion Gap 6 (5-15); BUN 48 mg/dL (7-18); BUN/Creat Ratio 42.9 RATIO (10-20); Calcium,Total 8.4 mg/dL (8.5-10.1); Chloride 113 mmol/L (98-107); Creatinine, Serum 1.12 mg/dL (0.70-1.30); EST Glomerular Filtration Rate 66 mL/min (>60); Est Glom Filt Rate - Afr Amer 80 mL/min (>60); Glucose 128 mg/dL (74-106); Potassium 4.6 mmol/L (3.5-5.1); Sodium Level 143 mmol/L (136-145)
--- NOTE | 2021-10-12 10:10 | CON.PCM.GI_ITS ---
HPI Consult Data Date of Consult: 10/12/21 HPI Narrative HPI Narrative: SHREE MARCUM, is a 86 M who presents with hematemesis. He has a past medical history of obstructive sleep apnea, pneumonia, TIAs . He also has a significant history of atrial fibrillation on Xarelto; and TAVR on August 12, 2021 who presents to emergency department with hematemesis that started few hours before presentation. Reportedly he vomited about double shot glass of blood before presentation. In the emergency department he reportedly he vomited about 180 mL of blood. He denies any melena, diarrhea, hematochezia. However he does admit to constipation. 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 Home Medications simvastatin 40 mg tablet 40 mg PO QPM 12/19/17 [History Last Taken Unknown] metoprolol tartrate 25 mg tablet 25 mg PO BID tab 11/29/18 [History Last Taken 05/05/21] alendronate 35 mg tablet 35 mg PO QWEEK 03/28/19 [History Last Taken Unknown] rivaroxaban 20 mg tablet 20 mg PO QDAY #90 tab 10/16/20 [Rx Last Taken 05/01/21] amlodipine 2.5 mg-benazepril 10 mg capsule 1 cap PO DAILY #90 cap 02/26/21 [Rx Last Taken 05/05/21] aspirin 81 mg tablet,delayed release 81 mg PO DAILY 04/10/21 [History Last Taken 05/05/21] Allergy/AdvReac Type Severity Reaction Status Date / Time terazosin Allergy lower Verified 03/25/21 11:18 blood pressure Family History Mother Hypertension Father Hypertension CVA (cerebral vascular accident) Sister Hypertension Brother Cancer Heart disease CVA (cerebral vascular accident) Dementia Surgical History History of endarterectomy History of hernia repair Social History Smoking Status: Never smoker alcohol intake: current details: occasional substance use type: does not use caffeine: No ROS Review of Systems ROS Unobtainable: other Constitutional Constitutional: Denies fatigue, fever(s), poor appetite, weight gain or weight loss ENT HEENT: Denies mouth lesions Cardiovascular Cardiovascular: Denies abdominal bloating, abdominal edema or abdominal pain Respiratory/Chest Respiratory/Chest: Denies change in mental status, change in phlegm color, chest congestion or chest tightness Gastrointestinal Gastrointestinal: Reports hematemesis Genitourinary Genitourinary: Denies abdominal discomfort, burning urination or itching Musculoskeletal Musculoskeletal: Reports as per HPI; Denies muscle weakness or myalgias Integumentary Integumentary: Denies jaundice Neurologic Neurologic: Denies lack of coordination or weakness Psychiatric Psychiatric: Denies confusion, depression, memory loss, mood swings, paranoia or suicidal ideation Endocrine Endocrinology: Denies systems reviewed and no addt'l complaints, except as documented Hematologic/Lymphatic Hematologic/Lymphatic: Denies anemia, easy bleeding, easy bruising or lymphadenopathy Allergic/Immunologic Allergic/Immunologic: Denies systems reviewed and no addt'l complaints, except as documented Physical Exam Const alert General Appearance: cooperative Orientation / Consciousness: oriented to person HEENT hearing grossly normal bilaterally Head and Scalp: normal to inspection Face and Sinus: face symmetric Nose: external nose normal Mouth: oral and palatal mucosa normal Eyes conjunctivae normal General Eye: normal appearance of both eyes Neck full ROM General: normal visual inspection Lymph Lymphatic: no lymphadenopathy noted Chest inspection of chest normal and palpation of chest normal Chest: symmetrical chest wall rise Resp normal respiratory effort Effort and Inspection: able to speak in complete sentences Cardio regular rate GI non-distended Percussion: normal to percussion Rectal Exam: deferred Neuro Speech: speech normal Gait (Neuro): normal gait Lab / Micro Data Result Diagrams: 10/12/21 06:05 10/12/21 06:05 Labs: Laboratory Results - last 24 hr 10/11/21 23:33: WBC 12.3 H, RBC 4.76, Hgb 14.8, Hct 44.5, MCV 93.5, MCH 31.1, MCHC 33.3, RDW Std Deviation 44.4 H, RDW Coeff of Lawrence 13.1, Plt Count 229, MPV 10.5 10/11/21 23:33: PT 32.4 H, INR 3.3, APTT 42.6 H 10/11/21 23:33: Sodium 140, Potassium 5.4 H, Chloride 106, Carbon Dioxide 29.0, Anion Gap 5, BUN 37 H, Creatinine 1.20, Estim Creat Clear Calc 42.84, Est GFR (MDRD) Af Amer 74, Est GFR (MDRD) Non-Af 61, BUN/Creatinine Ratio 30.8 H, Glucose 137 H, Calcium 9.0 10/11/21 23:33: Blood Type A POSITIVE, Antibody Screen NEGATIVE 10/11/21 23:33: Crossmatch See Detail 10/12/21 02:00: Hemoglobin A Cancelled, Hemoglobin A Confir Cancelled, Hemoglobin A2 Cancelled, Hemoglobin A2 Confirm Cancelled, Hemoglobin C Cancelled, Hemoglobin C Confirm Cancelled, Hemoglobin F () Cancelled, Hemoglobin F Confirm Cancelled, Hemoglobin S Cancelled, Hemoglobin S Confirm Cancelled, Variant Hemoglobin Cancelled, Hgb Variant Confirm Cancelled, Hemoglobin Interpret Cancelled, Hemoglob Intrp Confirm Cancelled, Hemoglobinopathy Confrm Cancelled, Hemoglobin Solubility Cancelled 10/12/21 02:00: Hgb 11.5 L, Hct 35.3 L 10/12/21 06:05: Hgb 11.6 L, Hct 36.5 L 10/12/21 06:05: Sodium 143, Potassium 4.6, Chloride 113 H, Carbon Dioxide 24.0, Anion Gap 6, BUN 48 H, Creatinine 1.12, Estim Creat Clear Calc 45.90, Est GFR (MDRD) Af Amer 80, Est GFR (MDRD) Non-Af 66, BUN/Creatinine Ratio 42.9 H, Glucose 128 H, Calcium 8.4 L Micro: Microbiology 10/12/21 03:05 Nasal Secretion SARS-CoV-2 Antigen (Rapid) - Final Assessment & Plan Assessment/Plan (1) Acute upper gastrointestinal bleeding: PLAN: The differential diagnosis for an older elderly gentleman with a past medical history of atrial fibrillation on Xarelto and aspirin therapy because of history of CAD and peripheral vascular disease would be AVM, peptic ulcer disease, gastric ulcer or duodenal ulcer. He should undergo upper endoscopy for evaluation of his upper GI tract. I will place him on a PPI drip. He was explained alternatives, risk, benefits including not withstanding blee ding, infection, sepsis, perforation, need for emergent . He will have an ASA of 3. Charges/Coding Visit Charges Inpatient E&M: 06512 Init Hosp L2
[2021-10-12 10:26] LABS: Hematocrit 35.1 % (40-54); Hemoglobin 11.4 g/dL (13.0-16.5)
--- NOTE | 2021-10-12 10:45 | CASEMGMT ---
RN GAIL Face to Face with patient for initial transition planning/care coordination assessment. RN CM introduced self and role at [facility]. Patient lying in bed, alert and oriented, daughter at bedside. Patient willing to participate in assessment and is able to answer all questions appropriately. Care providers, pharmacy, and demographics verified. Patient wishes to discharge home, denies need for home health at this time. Patient states he has no further needs or concerns at this time. CM to follow for discharge planning needs that may arise. PCP: Ute Walsh SINGLE ENDING MACHINE OPERATOR Specialists: Daniel, ship rigger; Lavinia, ship rigger Cruz Johsi Preferred Pharmacy: [facility] Insurance: [employer] Prescription Benefit: yes Living Will/HPOA: yes, Granddaughter Iman HPOA LNOK: daughter, girlfriend Living Arrangements: Patient lives with girlfriend in a condo with no steps to enter. Patient states he is independent at home Transportation: girlfriend or daughter DME/HHC: Patient states he has shower chair, grab bars, and walker at home. Patient denies previous HHC or SNF. Disposition Plan: Patient to discharge home with family support and follow-up plans in place. Ronna CASEY, RN, CM
--- NOTE | 2021-10-12 12:08 | PN.HOSP_ITS ---
Subjective Subjective Patient seen and examined. He was admitted in the early hours of today with a complaint of hematemesis. This was painless. He states he is never had something like this happen before. Patient is on aspirin and Xarelto. He denies any abdominal pain and is on aspirin but denies any other use of NSAIDs and denies any history of peptic ulcer. Review of systems otherwise negative. He is awaiting gastroenterology review. Hemoglobin is 11.4. Objective Data Objective Data Vital Signs: Vital Signs Temp Pulse Resp BP Pulse Ox 97.7 F L 104 H 12 110/66 100 10/12/21 09:00 10/12/21 09:00 10/12/21 09:00 10/12/21 09:00 10/12/21 09:00 Oxygen Delivery Method Room Air Weight: 153 lb 0.013 oz Body Mass Index (BMI) 23.9 Intake & Output: Intake and Output for Last 24 Hours 10/10/21 10/11/21 10/12/21 23:59 23:59 23:59 Intake Total 1035 / 1035 Balance 1035 / 1035 Lab / Micro Data Result Diagrams: 10/12/21 10:14 10/12/21 06:05 Labs: Laboratory Results - last 24 hr 10/11/21 23:33: WBC 12.3 H, RBC 4.76, Hgb 14.8, Hct 44.5, MCV 93.5, MCH 31.1, MCHC 33.3, RDW Std Deviation 44.4 H, RDW Coeff of Lawrence 13.1, Plt Count 229, MPV 10.5 10/11/21 23:33: PT 32.4 H, INR 3.3, APTT 42.6 H 10/11/21 23:33: Sodium 140, Potassium 5.4 H, Chloride 106, Carbon Dioxide 29.0, Anion Gap 5, BUN 37 H, Creatinine 1.20, Estim Creat Clear Calc 42.84, Est GFR (MDRD) Af Amer 74, Est GFR (MDRD) Non-Af 61, BUN/Creatinine Ratio 30.8 H, G lucose 137 H, Calcium 9.0 10/11/21 23:33: Blood Type A POSITIVE, Antibody Screen NEGATIVE 10/11/21 23:33: Crossmatch See Detail 10/12/21 02:00: Hemoglobin A Cancelled, Hemoglobin A Confir Cancelled, Hemoglobin A2 Cancelled, Hemoglobin A2 Confirm Cancelled, Hemoglobin C Cancelled, Hemoglobin C Confirm Cancelled, Hemoglobin F () Cancelled, Hemoglobin F Confirm Cancelled, Hemoglobin S Cancelled, Hemoglobin S Confirm Cancelled, Variant Hemoglobin Cancelled, Hgb Variant Confirm Cancelled, Hemoglobin Interpret Cancelled, Hemoglob Intrp Confirm Cancelled, Hemoglobinopathy Confrm Cancelled, Hemoglobin Solubility Cancelled 10/12/21 02:00: Hgb 11.5 L, Hct 35.3 L 10/12/21 06:05: Hgb 11.6 L, Hct 36.5 L 10/12/21 06:05: Sodium 143, Potassium 4.6, Chloride 113 H, Carbon Dioxide 24.0, Anion Gap 6, BUN 48 H, Creatinine 1.12, Estim Creat Clear Calc 45.90, Est GFR (MDRD) Af Amer 80, Est GFR (MDRD) Non-Af 66, BUN/Creatinine Ratio 42.9 H, Glucose 128 H, Calcium 8.4 L 10/12/21 10:14: Hgb 11.4 L, Hct 35.1 L Micro: Microbiology 10/12/21 03:05 Nasal Secretion SARS-CoV-2 Antigen (Rapid) - Final Physical Exam Const alert, oriented x3 and no apparent distress Exam Limitations: no limitations HEENT head/scalp atraumatic and moist oral mucous membranes Head and Scalp: normocephalic Eyes PERRL and EOMs intact bilaterally Neck no lymphadenopathy and supple Resp normal respiratory effort, no retractions, no use of accessory muscles and clear to auscultation bilaterally Cardio regular rate, regular rhythm, S1 normal heart sound, S2 normal heart sound and no murmurs GI normal to inspection, nondistended, normoactive bowel sounds, soft to palpation, non-tender and non-distended Extremity normal to inspection, full ROM and no clubbing, cyanosis or edema Peripheral Pulses: Yes pulses 2+ throughout Skin no rashes or lesions noted Neuro oriented x3, CN's II-XII intact bilaterally and moves all extremities Sensorium / Orientation: awake and alert Psych affect normal Assessment & Plan Assessment/Plan (1) Acute upper gastrointestinal bleeding: PLAN: #Acute Upper GI bleed * hasnt recurrerd since admission. * Hb is 7.4. Hasnt had any such UGI bleed before * xarelto and aspirin on hold. * on IV PPI drip * gastroenterology consulted: For endoscopy for evaluation of his upper GI tract. * #History of afib: currenlty rate controlled. On xarelto and metoprolol. #History of TAVR * stable * #Hypertension: BP meds on hold as he was briefly hypotensive in the ED. DVT prophylaxis: SCDs. No anticoagulation on account of hematemesis. Charges/Coding Visit Charges Inpatient E&M: 78325 Subs Hosp L2
[2021-10-12 16:29] LABS: Hematocrit 31.3 % (40-54)
--- NOTE | 2021-10-12 16:59 | OP.EGD_ITS ---
Patient Name: Marcie Singh Procedure Date: 10/12/2021 1:34 PM Date of : 1935 Age: 86 Procedure: Upper GI endoscopy Indications: Hematemesis Providers: Parveen aDnielle DO Medicines: See the Anesthesia note for documentation of the administered medications Patient Profile: This is an 86 year old male. Refer to note in patient chart for documentation of history and physical. Patient has symptoms. The symptoms first began 11,. Complications: No immediate complications. Procedure: Pre-Anesthesia Assessment: - Prior to the procedure, a History and Physical was performed, and patient medications and allergies were reviewed. The patient is competent. The risks and benefits of the procedure and the sedation options and risks were discussed with the patient. All questions were answered and informed consent was obtained. Patient identification and proposed procedure were verified by the physician in the pre-procedure area. Mental Status Examination: alert and oriented. Airway Examination: normal oropharyngeal airway and neck mobility. Respiratory Examination: clear to auscultation. CV Examination: normal. Prophylactic Antibiotics: The patient does not require prophylactic antibiotics. Prior Anticoagulants: The patient has taken no previous anticoagulant or antiplatelet agents. ASA Grade Assessment: II - A patient with mild systemic disease. After reviewing the risks and benefits, the patient was deemed in satisfactory condition to undergo the procedure. The anesthesia plan was to use moderate sedation / analgesia (conscious sedation). Immediately prior to administration of medications, the patient was re-assessed for adequacy to receive sedatives. The heart rate, respiratory rate, oxygen saturations, blood pressure, adequacy of pulmonary ventilation, and response to care were monitored throughout the procedure. The physical status of the patient was re-assessed after the procedure. After obtaining informed consent, the endoscope was passed under direct vision. Throughout the procedure, the patient's blood pressure, pulse, and oxygen saturations were monitored continuously. The gastroscope was introduced through the mouth, and advanced to the second part of duodenum. The upper GI endoscopy was accomplished without difficulty. Moderate Sedation: Moderate (conscious) sedation was personally administered by an anesthesia professional. The following parameters were monitored: oxygen saturation, heart rate, blood pressure, and response to care. Total physician intraservice time was 15 minutes. Scope In: 1:47:19 PM Scope Out: 1:55:58 PM Total Procedure Duration Time 0 hours 8 minutes 39 seconds Findings: Red blood was found in the lower third of the esophagus. There were esophageal mucosal changes suspicious for Santillan's esophagus present in the lower third of the esophagus. The maximum longitudinal extent of these mucosal changes was 3 cm in length. A Dieulafoy lesion with spurting bleeding and stigmata of recent bleeding was found at the gastroesophageal junction. Area was successfully injected with 3 mL of a 1:10,000 solution of epinephrine for hemostasis. Coagulation for hemostasis using argon beam at 0.3 liters/minute and 20 finch was successful. A 5 mm bleeding Meg-Stephenson tear with stigmata of recent bleeding was found. Area was successfully injected with 5 mL of a 1:10,000 solution of epinephrine for drug delivery. To repair the defect, the tissue edges were approximated and four hemostatic clips were successfully placed. Closure of the defect was successful. There was no bleeding at the end of the procedure. The second portion of the duodenum was normal. Impression: - Red blood in the lower third of the esophagus. - Esophageal mucosal changes suspicious for Santillan's esophagus. - Dieulafoy lesion of stomach. - Meg-Stephenson tear. Injected. Clips were placed. - Normal second portion of the duodenum. - No specimens collected. Recommendation: - Discharge patient to home. - Clear liquid diet today. - Give Protonix (pantoprazole): initiate therapy with 80 mg IV bolus, then 8 mg/hr IV by continuous infusion. - The patient has taken no previous anticoagulant or antiplatelet agents. - No aspirin, ibuprofen, naproxen, or other non-steroidal anti-inflammatory drugs for 4 days. Procedure Code(s): --- Professional --- 87643, Esophagogastroduodenoscopy, flexible, transoral; with control of bleeding, any method 08902, 59, Esophagogastroduodenoscopy, flexible, transoral; with directed submucosal injection(s), any substance CPT copyright 2017 [employer]. All rights reserved. The codes documented in this report are preliminary and upon director life sciences review may be revised to meet current compliance requirements. Parveen Danielle DO 10/12/2021 4:59:39 PM This report has been signed electronically. Number of Addenda: 1 Note Initiated On: 10/12/2021 1:34 PM Addendum Number: 1 Addendum Date: 07/07/2022 7:10:00 AM MAC was used instead of moderate sedation for the patient. Parveen Danielle DO 07/07/2022 7:10:04 AM This report has been signed electronically.
--- NOTE | 2021-10-12 17:00 | OP.CCLET_ITS ---
07/07/2022 Griselda Gray Re : Upper GI endoscopy procedure for Marcie Kennedyr Nico This procedure was performed on Tuesday, October 12, 2021. My impressions and recommendations are as follows: Impressions : - Red blood in the lower third of the esophagus. - Esophageal mucosal changes suspicious for Santillan's esophagus. - Dieulafoy lesion of stomach. - Meg-Stephenson tear. Injected. Clips were placed. - Normal second portion of the duodenum. - No specimens collected. Recommendations : - Discharge patient to home. - Clear liquid diet today. - Give Protonix (pantoprazole): initiate therapy with 80 mg IV bolus, then 8 mg/hr IV by continuous infusion. - The patient has taken no previous anticoagulant or antiplatelet agents. - No aspirin, ibuprofen, naproxen, or other non-steroidal anti-inflammatory drugs for 4 days. My findings are described in the full procedure note, which is enclosed. If I can be of further assistance, please feel free to contact me at . Sincerely, Parveen Danielle, 10/12/2021 4:59:39 PM This report has been signed electronically.
[2021-10-13] VITALS (9 sets, daily range): BP systolic 99–129; BP diastolic 57–70; PULSE 70–106; RESP 16–18; TEMP 36.4–36.6; O2SAT 95–98
[2021-10-13 06:08] LABS: Absolute Lymphocyte Count 2.37 X10^3/uL (0.83-4.51); Basophil# 0.08 X10^3/uL; Basophil% 0.8 % (0-1); Eosinophils% 1.9 % (0-5); Hematocrit 31.5 % (40-54); Hemoglobin 9.7 g/dL (13.0-16.5); Lymphocyte # 2.37 X10^3/ul (0.83-4.51); Lymphocyte % 22.6 % (19-41); Mean Corp Hgb Conc 30.8 g/dL (32-36); Mean Corpuscular Hgb 30.2 pg (27.0-32.0); Mean Corpuscular Volume 98.1 fL (80-94); Mean Platelet Vol. 10.2 fl (6.2-12.0); Monocyte# 0.79 X10^3/uL; Monocyte% 7.5 % (0-10); NRBC Flagged by Analyzer 0 % (0-5); Neutrophil # 6.99 X10^3/uL (2.7-7.7); Neutrophil % 66.8 % (47-70); Platelet Count 149 K/mm3 (150-450); RBC Distribution Width SD 46.7 fl (35.1-43.9); Red Blood Count 3.21 M/mm3 (4.6-6.2); White Blood Count 10.5 K/mm3 (4.4-11.0)
[2021-10-13 06:30] LABS: Anion Gap 2 (5-15); BUN 34 mg/dL (7-18); BUN/Creat Ratio 35.8 RATIO (10-20); Calcium,Total 8.1 mg/dL (8.5-10.1); Chloride 114 mmol/L (98-107); Creatinine, Serum 0.95 mg/dL (0.70-1.30); EST Glomerular Filtration Rate 80 mL/min (>60); Est Glom Filt Rate - Afr Amer 97 mL/min (>60); Estimated Creatinine Clearance 54.12 ml/min; Glucose 89 mg/dL (74-106); Potassium 4.2 mmol/L (3.5-5.1); Sodium Level 143 mmol/L (136-145)
--- NOTE | 2021-10-13 12:07 | PN.HOSP_ITS ---
Subjective Subjective Patient seen and examined. He has no complaints today and feels well. He has not vomited any blood again. He had EGD yesterday. EGD showed esophagitis with concerns for Santillan's esophagus as well as Dieulafoy lesion in the stomach. Objective Data Objective Data Vital Signs: Vital Signs Temp Pulse Resp BP Pulse Ox 97.6 F L 72 18 104/70 96 10/13/21 09:13 10/13/21 09:13 10/13/21 09:13 10/13/21 09:13 10/13/21 11:50 Oxygen Delivery Method Room Air Weight: 153 lb 0.013 oz Body Mass Index (BMI) 23.9 Intake & Output: Intake and Output for Last 24 Hours 10/11/21 10/12/21 10/13/21 23:59 23:59 23:59 Intake Total 1165 / 1165 100 / 100 Balance 1165 / 1165 100 / 100 Lab / Micro Data Result Diagrams: 10/13/21 05:26 10/13/21 05:26 Labs: Laboratory Results - last 24 hr 10/12/21 16:20: Hgb 10.0 L, Hct 31.3 L 10/13/21 05:26: WBC 10.5, RBC 3.21 L, Hgb 9.7 L, Hct 31.5 L, MCV 98.1 H, MCH 30.2, MCHC 30.8 L D, RDW Std Deviation 46.7 H, RDW Coeff of Lawrence 13.0, Plt Count 149 L, MPV 10.2, Immature Gran % (Auto) 0.400, Neut % (Auto) 66.8, Lymph % (Auto) 22.6, [place] % (Auto) 7.5, Eos % (Auto) 1.9, Baso % (Auto) 0.8, Absolute Neuts (auto) 7.0, Absolute Lymphs (auto) 2.37, Nucleated RBC % 0 10/13/21 05:26: Sodium 143, Potassium 4.2, Chloride 114 H, Carbon Dioxide 27.0, Anion Gap 2 L, BUN 34 H, Creatinine 0.95, Estim Creat Clear Calc 54.12, Est GFR (MDRD) Af Amer 97, Est GFR (MDRD) Non-Af 80, BUN/Creatinine Ratio 35.8 H, Glucose 89, Calcium 8.1 L Micro: Microbiology 10/12/21 03:05 Nasal Secretion SARS-CoV-2 Antigen (Rapid) - Final Physical Exam Const alert, oriented x3 and no apparent distress Exam Limitations: no limitations HEENT head/scalp atraumatic and moist oral mucous membranes Head and Scalp: normocephalic Eyes PERRL and EOMs intact bilaterally Neck no lymphadenopathy and supple Resp normal respiratory effort, no retractions, no use of accessory muscles and clear to auscultation bilaterally Cardio regular rate, regular rhythm, S1 normal heart sound, S2 normal heart sound and no murmurs GI normal to inspection, nondistended, normoactive bowel sounds, soft to palpation, non-tender and non-distended Extremity normal to inspection, full ROM and no clubbing, cyanosis or edema Peripheral Pulses: Yes pulses 2+ throughout Skin no rashes or lesions noted Neuro oriented x3, CN's II-XII intact bilaterally and moves all extremities Sensorium / Orientation: awake and alert Psych affect normal Assessment & Plan Assessment/Plan (1) Acute upper gastrointestinal bleeding: PLAN: #Acute Upper GI bleed * hasnt recurrerd since admission. * s/p EGD which showed red blood in the lower third of the esophagus with esophageal mucosal changes suspicious for Santillan's esophagus and a Dieulafoy lesion of the stomach as well as a Meg-Stephenson tear which was injected and c lips were placed. Normal second portion of the duodenum. * xarelto and aspirin on hold. * on IV PPI drip * gastroenterology on board. * #History of afib: * currenlty rate controlled. On xarelto and metoprolol. xarelto on hold. * Will discuss with GI about whether xarelto can be resumed. #History of TAVR * stable * #Hypertension: BP meds on hold as he was briefly hypotensive in the ED. DVT prophylaxis: SCDs. No anticoagulation on account of hematemesis. Disposition: for likely DC tomorrow Charges/Coding Visit Charges Inpatient E&M: 76106 Subs Hosp L2
--- NOTE | 2021-10-13 17:04 | CHAPLAIN ---
Type of Pastoral Visit ___ Initial Visit ___ Follow-up Visit ___ On-call Visit ___ General Patient Visit ___ Spiritual Assessment ___ Family Conference ___ Bereavement ___ Rapid Response ___ Code Blue _x__ Other (describe below) Pastoral Care Referral From ___ Patient ___ Family ___ Nurse ___ Physician ___ Green Building Energy Engineer ___ Bank Officer ___ Other (describe below) Sacrament/Intervention ___ Active listening ___ Anointing ___ Yazdanism ___ Bereavement ___ Communion ___ Mellisa exploration ___ ___ Life review ___ Prayer ___ Reconciliation ___ Sacrament of Sick ___ Supportive presence ___ Wedding ___ Other (describe below) Pastoral Commentsoffered support and a listening ear to daughter out in hallway as patient is getting anxious for discharge
--- NOTE | 2021-10-13 19:18 | PN.GI_ITS ---
Subjective Subjective Patient underwent emergent endoscopy yesterday for an upper GI bleed. He was discovered to have bleeding from a daily for lesion at the GE junction. 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 He has not had any signs of bleeding overnight and throughout the day. Objective Data Objective Data Vital Signs: Vital Signs Temp Pulse Resp BP Pulse Ox 97.8 F 94 18 129/61 H 95 10/13/21 14:44 10/13/21 15:32 10/13/21 14:44 10/13/21 14:44 10/13/21 14:44 Oxygen Delivery Method Room Air Weight: 153 lb 0.013 oz Body Mass Index (BMI) 23.9 Intake & Output: Intake and Output for Last 24 Hours 10/11/21 10/12/21 10/13/21 23:59 23:59 23:59 Intake Total 1165 / 1165 199.67 / 199.67 Balance 1165 / 1165 199.67 / 199.67 Lab / Micro Data Result Diagrams: 10/13/21 05:26 10/13/21 05:26 Labs: Laboratory Results - last 24 hr 10/13/21 05:26: WBC 10.5, RBC 3.21 L, Hgb 9.7 L, Hct 31.5 L, MCV 98.1 H, MCH 30.2, MCHC 30.8 L D, RDW Std Deviation 46.7 H, RDW Coeff of Lawrence 13.0, Plt Count 149 L, MPV 10.2, Immature Gran % (Auto) 0.400, Neut % (Auto) 66.8, Lymph % (Auto) 22.6, [place] % (Auto) 7.5, Eos % (Auto) 1.9, Baso % (Auto) 0.8, Absolute Neuts (auto) 7.0, Absolute Lymphs (auto) 2.37, Nucleated RBC % 0 10/13/21 05:26: Sodium 143, Potassium 4.2, Chloride 114 H, Carbon Dioxide 27.0, Anion Gap 2 L, BUN 34 H, Creatinine 0.95, Estim Creat Clear Calc 54.12, Est GFR (MDRD) Af Amer 97, Est GFR (MDRD) Non-Af 80, BUN/Creatinine Ratio 35.8 H, Glucose 89, Calcium 8.1 L Micro: Microbiology 10/12/21 03:05 Nasal Secretion SARS-CoV-2 Antigen (Rapid) - Final Physical Exam Const alert General Appearance: cooperative Orientation / Consciousness: oriented to person HEENT hearing grossly normal bilaterally Head and Scalp: normal to inspection Face and Sinus: face symmetric Nose: external nose normal Mouth: oral and palatal mucosa normal Eyes conjunctivae normal General Eye: normal appearance of both eyes Neck full ROM General: normal visual inspection Lymph Lymphatic: no lymphadenopathy noted Chest inspection of chest normal and palpation of chest normal Chest: symmetrical chest wall rise Resp normal respiratory effort Effort and Inspection: able to speak in complete sentences Cardio regular rate GI non-distended Percussion: normal to percussion Rectal Exam: deferred Neuro Speech: speech normal Gait (Neuro): normal gait Assessment & Plan Assessment/Plan (1) Acute upper gastrointestinal bleeding: PLAN: His hemoglobin has trended down some. As well as his platelet count. This could possibly be dilutional for both a hemoglobin and a platelet count. However his MCV is elevated and I am concerned with this combination that he could have underlying portal hypertension or cirrhosis. I will order an ultrasound of the right upper quadrant to evaluate his liver. Continue PPI drip for now. (2) History of atrial fibrillation: PLAN: Continue to hold aspirin and Xarelto until we can see the hemoglobin is stabilized. Charges/Coding Visit Charges Inpatient E&M: 42370 Subs Hosp L3
[2021-10-14] VITALS (11 sets, daily range): BP systolic 102–150; BP diastolic 56–78; PULSE 69–116; RESP 16–18; TEMP 36.4–36.6; O2SAT 98–100
[2021-10-14 07:21] LABS: Absolute Lymphocyte Count 1.84 X10^3/uL (0.83-4.51); Absolute Neutrophil Count 5.3 X10^3/uL (2.0-7.7); Basophil# 0.05 X10^3/uL; Basophil% 0.6 % (0-1); Eosinophil# 0.23 X10^3/uL; Eosinophils% 2.8 % (0-5); Hematocrit 28.4 % (40-54); Hemoglobin 9.2 g/dL (13.0-16.5); Lymphocyte # 1.84 X10^3/ul (0.83-4.51); Lymphocyte % 22.7 % (19-41); Mean Corp Hgb Conc 32.4 g/dL (32-36); Mean Corpuscular Hgb 30.2 pg (27.0-32.0); Mean Corpuscular Volume 93.1 fL (80-94); Monocyte# 0.69 X10^3/uL; Monocyte% 8.5 % (0-10); NRBC Flagged by Analyzer 0 % (0-5); Neutrophil # 5.25 X10^3/uL (2.7-7.7); Platelet Count 152 K/mm3 (150-450); RBC Distribution Width CV 13.2 % (11.6-14.6); RBC Distribution Width SD 44.7 fl (35.1-43.9); Red Blood Count 3.05 M/mm3 (4.6-6.2); White Blood Count 8.1 K/mm3 (4.4-11.0)
[2021-10-14 07:48] LABS: Anion Gap 6 (5-15); BUN 21 mg/dL (7-18); BUN/Creat Ratio 20.4 RATIO (10-20); Calcium,Total 8.2 mg/dL (8.5-10.1); Chloride 108 mmol/L (98-107); Creatinine, Serum 1.03 mg/dL (0.70-1.30); EST Glomerular Filtration Rate 73 mL/min (>60); Est Glom Filt Rate - Afr Amer 88 mL/min (>60); Estimated Creatinine Clearance 49.91 ml/min; Glucose 99 mg/dL (74-106); Sodium Level 142 mmol/L (136-145)
--- NOTE | 2021-10-14 08:00 | US_ITS ---
STUDY: ABDOMINAL ULTRASOUND - RIGHT UPPER QUADRANT REASON FOR VISIT: Male, 86 years old cirrhosis TECHNIQUE: Ultrasound evaluation of the right upper quadrant was performed with real-time and static schneider-scale imaging. TECHNICAL QUALITY: Adequate. COMPARISON: None. FINDINGS: Liver: The liver measures 14 cm. There is a heterogeneous echogenicity of the liver. The bile ducts are within normal limits. There is hepatic color flow. The direction of portal flow is hepatopetal. There is no demonstrated mass lesion. Gallbladder: Normal distended gallbladder. The gallbladder wall measures 1.5 mm. There is a negative sonographic Mendez''s sign. There is no pericholecystic fluid. There are no gallstones. Common Bile Duct (C.B.D.): The common bile duct measures 4.8 mm. Pancreas: Normal size of the head, body and tail of the pancreas. There is normal echogenicity of the pancreas. There is no demonstrated pancreatic mass or cyst. Right Kidney: Normal size of the right kidney. The right kidney measures 10.8 cm x 4.3cm x 5.7 cm. Normal renal cortex. The right cortex measures 1.5 cm. There is a 2.4 cm x 2.2 cm x 2.3 cm cyst in the inferior pole of the right kidney. There is no right hydronephrosis. US/Liver IMPRESSION: Heterogeneous appearance of the liver. Right renal cyst. Electronically Signed: Jasper Reed MD at 10:22 EST , Service support ,
--- NOTE | 2021-10-14 12:21 | PN.HOSP_ITS ---
Subjective Subjective Patient seen and examined. He had no complaints today and felt well. Review of symptoms otherwise negative. Patient is hopeful he will be discharged today. Hemoglobin today is 9.2. Objective Data Objective Data Vital Signs: Vital Signs Temp Pulse Resp BP Pulse Ox 97.6 F L 69 16 111/74 99 10/14/21 08:10 10/14/21 08:10 10/14/21 08:10 10/14/21 08:10 10/14/21 08:10 Oxygen Delivery Method Room Air Weight: 153 lb 0.013 oz Body Mass Index (BMI) 23.9 Intake & Output: Intake and Output for Last 24 Hours 10/12/21 10/13/21 10/14/21 23:59 23:59 23:59 Intake Total 1165 / 1165 199.67 / 499.67 437.00 / 437.00 Balance 1165 / 1165 199.67 / 499.67 437.00 / 437.00 Lab / Micro Data Result Diagrams: 10/14/21 06:27 10/14/21 06:27 Labs: Laboratory Results - last 24 hr 10/14/21 06:27: WBC 8.1, RBC 3.05 L, Hgb 9.2 L, Hct 28.4 L, MCV 93.1 D, MCH 30.2, MCHC 32.4 D, RDW Std Deviation 44.7 H, RDW Coeff of Lawrence 13.2, Plt Count 152, MPV 10.0, Immature Gran % (Auto) 0.400, Neut % (Auto) 65.0, Lymph % (Auto) 22.7, [place] % (Auto) 8.5, Eos % (Auto) 2.8, Baso % (Auto) 0.6, Absolute Neuts (auto) 5.3, Absolute Lymphs (auto) 1.84, Nucleated RBC % 0 10/14/21 06:27: Sodium 142, Potassium 4.0, Chloride 108 H, Carbon Dioxide 28.0, Anion Gap 6, BUN 21 H, Creatinine 1.03, Estim Creat Clear Calc 49.91, Est GFR (MDRD) Af Amer 88, Est GFR (MDRD) Non-Af 73, BUN/Creatinine Ratio 20.4 H, Glucose 99, Calcium 8.2 L Micro: Microbiology 10/12/21 03:05 Nasal Secretion SARS-CoV-2 Antigen (Rapid) - Final Radiography Diagnostic Testing: Radiology Impression Liver Ultrasound 10/14/21 08:00 IMPRESSION: Heterogeneous appearance of the liver. Right renal cyst. Electronically Signed: Jasper Reed MD at 10:22 EST , Service support , Physical Exam Const alert, oriented x3 and no apparent distress Exam Limitations: no limitations HEENT head/scalp atraumatic and moist oral mucous membranes Head and Scalp: normocephalic Eyes PERRL and EOMs intact bilaterally Neck no lymphadenopathy and supple Resp normal respiratory effort, no retractions, no use of accessory muscles and clear to auscultation bilaterally Cardio regular rate, regular rhythm, S1 normal heart sound, S2 normal heart sound and no murmurs GI normal to inspection, nondistended, normoactive bowel sounds, soft to palpation, non-tender and non-distended Extremity normal to inspection, full ROM and no clubbing, cyanosis or edema Peripheral Pulses: Yes pulses 2+ throughout Skin no rashes or lesions noted Neuro oriented x3, CN's II-XII intact bilaterally and moves all extremities Sensorium / Orientation: awake and alert Psych affect normal Assessment & Plan Assessment/Plan (1) Acute upper gastrointestinal bleeding: PLAN: #Acute Upper GI bleed * hasnt recurrerd since admission. * s/p EGD which showed red blood in the lower third of the esophagus with esophageal mucosal changes suspicious for Santillan's esophagus and a Dieulafoy lesion of the stomach as well as a Meg-Stephenson tear which was injected and clips were placed. Normal second portion of the duodenum. * xarelto and aspirin on hold. * will switch from PPI drip to IV protonix 40mg q12 * gastroenterology on board. * will advance to clear liquids today, and advance further as tolerated * #History of afib: * currenlty rate controlled. On xarelto and metoprolol. xarelto on hold. * Will discuss with GI about whether xarelto can be resumed. #Acute anemia due to upper GI bleed. * hb today is 9.2, was 14.8 on admission * will trend * liver USG done o/a of elevated MCV showed a heerogenous appearance of the rishabh er with a right renal cyst. #History of TAVR * stable * #Hypertension: will resume BP meds today. DVT prophylaxis: SCDs. No anticoagulation on account of hematemesis. Disposition: for likely DC tomorrow Charges/Coding Visit Charges Inpatient E&M: 16177 Subs Hosp L2
--- NOTE | 2021-10-14 12:28 | NURSING ---
assisted pt to bathroom and heart monitor alarmed tachy, HR running 160's, requested pt bear down and HR continued to run tachy, BP 125/68, MD notified, new order to restart home metoprolol
[2021-10-14] MEDS: Metoprolol Tartrate 25 MG Tablet PO ×2 (12:53→22:32)
[2021-10-14] MEDS: Lisinopril 10 MG Tablet PO (16:57)
--- NOTE | 2021-10-14 18:53 | PN.GI_ITS ---
Subjective Subjective He is not showing any signs of GI bleeding today. PPI drip has been stopped. He is not having abdominal pain or cramping and continues to remain off anticoagulation and antiplatelet therapy. Objective Data Objective Data Vital Signs: Vital Signs Temp Pulse Resp BP Pulse Ox 97.6 F L 74 16 136/78 H 100 10/14/21 08:10 10/14/21 16:37 10/14/21 14:38 10/14/21 16:37 10/14/21 14:38 Oxygen Delivery Method Room Air Weight: 153 lb 0.013 oz Body Mass Index (BMI) 23.9 Intake & Output: Intake and Output for Last 24 Hours 10/12/21 10/13/21 10/14/21 23:59 23:59 23:59 Intake Total 1165 / 1165 199.67 / 499.67 738.50 / 738.50 Balance 1165 / 1165 199.67 / 499.67 738.50 / 738.50 Lab / Micro Data Result Diagrams: 10/14/21 06:27 10/14/21 06:27 Labs: Laboratory Results - last 24 hr 10/14/21 06:27: WBC 8.1, RBC 3.05 L, Hgb 9.2 L, Hct 28.4 L, MCV 93.1 D, MCH 30.2, MCHC 32.4 D, RDW Std Deviation 44.7 H, RDW Coeff of Lawrence 13.2, Plt Count 152, MPV 10.0, Immature Gran % (Auto) 0.400, Neut % (Auto) 65.0, Lymph % (Auto) 22.7, [place] % (Auto) 8.5, Eos % (Auto) 2.8, Baso % (Auto) 0.6, Absolute Neuts (auto) 5.3, Absolute Lymphs (auto) 1.84, Nucleated RBC % 0 10/14/21 06:27: Sodium 142, Potassium 4.0, Chloride 108 H, Carbon Dioxide 28.0, Anion Gap 6, BUN 21 H, Creatinine 1.03, Estim Creat Clear Calc 49.91, Est GFR (MDRD) Af Amer 88, Est GFR (MDRD) Non-Af 73, BUN/Creatinine Ratio 20.4 H, Glucose 99, Calcium 8.2 L Micro: Microbiology 10/12/21 03:05 Nasal Secretion SARS-CoV-2 Antigen (Rapid) - Final Radiography Diagnostic Testing: Radiology Impression Liver Ultrasound 10/14/21 08:00 IMPRESSION: Heterogeneous appearance of the liver. Right renal cyst. Electronically Signed: Jasper Reed MD at 10:22 EST , Service support , Physical Exam Const alert General Appearance: cooperative Orientation / Consciousness: oriented to person HEENT hearing grossly normal bilaterally Head and Scalp: normal to inspection Face and Sinus: face symmetric Nose: external nose normal Mouth: oral and palatal mucosa normal Eyes conjunctivae normal General Eye: normal appearance of both eyes Neck full ROM General: normal visual inspection Lymph Lymphatic: no lymphadenopathy noted Chest inspection of chest normal and palpation of chest normal Chest: symmetrical chest wall rise Resp normal respiratory effort Effort and Inspection: able to speak in complete sentences Cardio regular rate GI non-distended Percussion: normal to percussion Rectal Exam: deferred Neuro Speech: speech normal Gait (Neuro): normal gait Assessment & Plan Assessment/Plan (1) Acute upper gastrointestinal bleeding: PLAN: Patient is doing well. His hemoglobin has just is down a little bit but I do not know that secondary to dilutional effect from being on IV fluids. (2) Abnormal finding on imaging of liver: PLAN: One of the main causes of heterogeneous echogenicity of the liver is chronic liver disease/cirrhosis . Other common conditions leading to heterogeneous echogenicity are patchy steatosis and diffuse tumor infiltration. His work-up for his heterogenicity of the liver can be continued as an outpatient. However due to his findings he may need a work-up for Budd-Chiari, infiltrative disease affecting the liver including amyloidosis sarcoidosis and hemochromatosis. Charges/Coding Visit Charges Inpatient E&M: 31883 Subs Hosp L3
[2021-10-14] MEDS: Atorvastatin Calcium 20 MG Tablet PO (22:32)
[2021-10-15 02:06] VITALS: BP 101/66; PULSE 74; RESP 16; TEMP 36.7; O2SAT 98
[2021-10-15 03:00] VITALS: PULSE 72
[2021-10-15 06:56] LABS: Absolute Lymphocyte Count 1.86 X10^3/uL (0.83-4.51); Basophil# 0.06 X10^3/uL; Basophil% 0.9 % (0-1); Eosinophil# 0.27 X10^3/uL; Eosinophils% 3.9 % (0-5); Hematocrit 29.2 % (40-54); Hemoglobin 9.4 g/dL (13.0-16.5); Lymphocyte # 1.86 X10^3/ul (0.83-4.51); Lymphocyte % 26.8 % (19-41); Mean Corp Hgb Conc 32.2 g/dL (32-36); Mean Corpuscular Volume 93.3 fL (80-94); Mean Platelet Vol. 10.3 fl (6.2-12.0); Monocyte# 0.69 X10^3/uL; NRBC Flagged by Analyzer 0 % (0-5); Neutrophil # 4.02 X10^3/uL (2.7-7.7); Platelet Count 157 K/mm3 (150-450); RBC Distribution Width CV 13.3 % (11.6-14.6); Red Blood Count 3.13 M/mm3 (4.6-6.2); White Blood Count 6.9 K/mm3 (4.4-11.0)
[2021-10-15 07:00] VITALS: PULSE 77
[2021-10-15 07:14] LABS: Anion Gap 6 (5-15); BUN 12 mg/dL (7-18); BUN/Creat Ratio 11.3 RATIO (10-20); Calcium,Total 8.7 mg/dL (8.5-10.1); Chloride 110 mmol/L (98-107); Creatinine, Serum 1.06 mg/dL (0.70-1.30); EST Glomerular Filtration Rate 71 mL/min (>60); Est Glom Filt Rate - Afr Amer 86 mL/min (>60); Glucose 95 mg/dL (74-106); Potassium 4.3 mmol/L (3.5-5.1); Sodium Level 142 mmol/L (136-145)
[2021-10-15 09:05] VITALS: BP 125/65; PULSE 82; RESP 16; TEMP 36.6; O2SAT 99
[2021-10-15 09:07] VITALS: PULSE 82
[2021-10-15] MEDS: Metoprolol Tartrate 25 MG Tablet PO (09:07)
[2021-10-15] MEDS: Lisinopril 10 MG Tablet PO (09:07)
[2021-10-15] MEDS: amLODIPine 2.5 MG Tablet PO (09:07)
--- NOTE | 2021-10-15 09:34 | PCS.PANDOC ---
PANDEMIC DOCUMENTATION INITIATED: Date: 06/15/2021 Time: 190
--- NOTE | 2021-10-15 11:14 | PCM.DC.SUM ---
Providers Date of Admission: 10/12/21 Primary Care Physician: SLADE Gray Consultations 10/12/21 02:07 Consult: Gastroenterology Routine Consulting Provider: Parveen Danielle Reason for Consult: ABLA EMERGENT Consult: No MD Notified: Yes Date Notified: 10/12/21 Time Notified: 01:52 Method of Notification: Text Reason For Visit: ABLA 2NDARY TO UPPER GI BLEED Diagnosis Discharge Diagnosis (1) Acute upper gastrointestinal bleeding: Status: Acute Code(s): K92.2 - Gastrointestinal hemorrhage, unspecified (2) Abnormal finding on imaging of liver: Status: Acute Code(s): R93.2 - Abnormal findings on diagnostic imaging of liver and biliary tract Medications at Discharge Home Medications simvastatin 40 mg tablet 40 mg PO QPM 12/19/17 metoprolol tartrate 25 mg tablet 25 mg PO BID tab 11/29/18 alendronate 35 mg tablet 35 mg PO QWEEK 03/28/19 rivaroxaban 20 mg tablet 20 mg PO QDAY #90 tab 10/16/20 amlodipine 2.5 mg-benazepril 10 mg capsule 1 cap PO DAILY #90 cap 02/26/21 pantoprazole 40 mg PO BID #60 tab 10/15/21 Hospital Course Operations None Procedures EGD Summary of Care Provided Minutes Spent on Discharge: 45 Hospital Course: Patient is an 86-year-old male with a past medical history as outlined which includes A. 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 He presented to the ED on 10/12/2021 with a complaint of hematemesis which started a few hours before presentation with him vomiting about a double short clots of blood with clots before presentation. He also vomited blood in the ED. Hemoglobin was 14.8 and subsequently dropped to 11.5. He was admitted and managed for acute upper GI bleed. He was kept n.p.o. and hydrated with IV fluids. Xarelto and aspirin were held and he was started on a PPI bolus. Gastroenterology was consulted. 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 Second portion of the duodenum was normal. He was subsequently switched to IV Protonix 40 mg every 12 and started on clear liquids which he tolerated. Hemoglobin trended downwards to 9.2 but he did not require any blood transfusion. Liver ultrasound was done on account of elevated MCV and showed a heterogeneous appearance of the liver with a right renal cyst. Per gastroenterology, patient will need further work-up for liver pathology such as Budd-Chiari syndrome on outpatient basis. Patient remained stable and was discharged home on 10/15/2021 on p.o. pantoprazole 40 mg twice daily. Per discussion with GI, patient was to stop aspirin permanently and to hold off on resuming Xarelto until 10/24/2021. He is to follow-up with his primary care doctor and to follow-up with gastroenterology on outpatient basis. Patient seen and examined prior to discharge. He had no active complaints and was eager to be discharged home. Review of systems otherwise negative. Labs and vitals reviewed. Medication reviewed and reconciled. Physical Exam Const alert, oriented x3 and no apparent distress General Appearance: cooperative and comfortable Orientation / Consciousness: awake Exam Limitations: no limitations HEENT normocephalic, head/scalp atraumatic and moist oral mucous membranes Eyes PERRL and EOMs intact bilaterally Neck no lymphadenopathy and supple Resp normal respiratory effort, no retractions, no use of accessory muscles and clear to auscultation bilaterally Cardio regular rate, regular rhythm, S1 normal heart sound, S2 normal heart sound and no murmurs GI normal to inspection, nondistended, normoactive bowel sounds, soft to palpation, non-tender and non-distended Extremity normal to inspection, full ROM and no clubbing, cyanosis or edema Skin no rashes or lesions noted Neuro oriented x3, CN's II-XII intact bilaterally and moves all extremities Sensorium / Orientation: awake and alert Psych affect normal Weight / BMI Weight Weight: 153 lb 0.013 oz Body Mass Index (BMI) 23.9 ABG / Lab / Microbiology Data Result Diagrams: 10/15/21 06:32 10/15/21 06:32 Laboratory: Laboratory Results - last 24 hr 10/11/21 23:33: Crossmatch See Detail 10/15/21 06:32: WBC 6.9, RBC 3.13 L, Hgb 9.4 L, Hct 29.2 L, MCV 93.3, MCH 30.0, MCHC 32.2, RDW Std Deviation 45.0 H, RDW Coeff of [place] 13.3, Plt Count 157, MPV 10.3, Immature Gran % (Auto) 0.400, Neut % (Auto) 58.0, Lymph % (Auto) 26.8, [place] % (Auto) 10.0, Eos % (Auto) 3.9, Baso % (Auto) 0.9, Absolute Neuts (auto) 4.0, Absolute Lymphs (auto) 1.86, Nucleated RBC % 0 10/15/21 06:32: Sodium 142, Potassium 4.3, Chloride 110 H, Carbon Dioxide 26.0, Anion Gap 6, BUN 12, Creatinine 1.06, Estim Creat Clear Calc 48.50, Est GFR (MDRD) Af Amer 86, Est GFR (MDRD) Non-Af 71, BUN/Creatinine Ratio 11.3, Glucose 95, Calcium 8.7 Microbiology: Microbiology 10/12/21 03:05 Nasal Secretion SARS-CoV-2 Antigen (Rapid) - Final D/C Instructions Discharge Diet: Low fat / Low cholesterol Discharge Activity: Return to Normal Activity Weight Bearing Status: Weight bearing as tolerated Call your doctor if you observe: Fever of 101 or Higher, Shortness of breath, Dizziness, Swelling in the ankles and - (vomiting of blood) Meaningful Use Info Meaningful Use Diagnoses (Choose all that apply): None applicable Discharge Plan Admission Admit Date/Time: 10/12/21 01:46 Primary Reason for Your Visit: UGI bleed Attending Provider: Kerri Hanley Primary Care Provider: Ute Walsh NP Consulting Providers: Parveen Danielle Instructions Additional Instructions / Restrictions: aspirin stopped permanently. To resume xarelto on October 24, 2021. Discharge Orders/Prescriptions Prescriptions: New pantoprazole 40 mg tablet,delayed release (DR/EC) 40 mg PO BID Qty: 60 RF: 1 Continued simvastatin 40 mg tablet 40 mg PO QPM RF: 0 alendronate 35 mg tablet 35 mg PO QWEEK RF: 0 metoprolol tartrate 25 mg tablet 25 mg PO BID RF: 0 amlodipine-benazepril 2.5-10 mg capsule 1 cap PO DAILY Qty: 90 RF: 3 Held Xarelto 20 mg tablet 20 mg PO QDAY Qty: 90 RF: 3 Hold Instructions: Resume on 10/24/21. hold and resume on 10/14/2021 Discontinued aspirin [Adult Low Dose Aspirin] 81 mg tablet,delayed release (DR/EC) 81 mg PO DAILY RF: 0 Referrals / Follow Up: Parveen Danielle DO [STAFF PHYSICIAN] - Within 1 Week Ute Walsh ACCOUNT SOLUTIONS ANALYST, ACCOUNT SOLUTIONS ANALYST-C [Primary Care Provider] - Within 1 Week Disposition Disposition (needs filled in before D/C Order can be placed): Home, Self Care Charges/Coding Visit Charges Inpatient E&M: 15222 Disch Hosp
== END 2021-10-15 12:40 | disposition home or self-care (01) | DRG 377 ==
LOC: ED 10-12 01:49 → MS3 10-12 02:13 → MS2 10-13 12:22
PROVIDERS: Internal Medicine Gastroenterology; Admitting Provider Hospitalist; Emergency Provider Emergency Medicine; PCP Nurse Practitioner Family; Visit Provider Student in an Organized Health Care Education/Training Program
PROC: 0DJ08ZZ Inspection of Upper Intestinal Tract, Via Natural or Artificial Opening Endoscopic (ICD-10-PCS; CPT 43235; principal; 2021-10-12 14:25)
DX: K31.82 Dieulafoy lesion (hemorrhagic) of stomach and duodenum (principal); K22.6 Gastro-esophageal laceration-hemorrhage syndrome; I48.21 Permanent atrial fibrillation; D62 Acute posthemorrhagic anemia; K22.70 Barrett's esophagus without dysplasia; R93.2 Abnormal findings on diagnostic imaging of liver and biliary tract; E87.5 Hyperkalemia; E78.5 Hyperlipidemia, unspecified; N28.1 Cyst of kidney, acquired; I10 Essential (primary) hypertension; K59.00 Constipation, unspecified; I35.0 Nonrheumatic aortic (valve) stenosis; N40.0 Benign prostatic hyperplasia without lower urinary tract symptoms; G47.33 Obstructive sleep apnea (adult) (pediatric); I25.2 Old myocardial infarction; Z87.01 Personal history of pneumonia (recurrent); Z86.73 Personal history of transient ischemic attack (TIA), and cerebral infarction without residual deficits; Z85.828 Personal history of other malignant neoplasm of skin; Z95.2 Presence of prosthetic heart valve; Z79.82 Long term (current) use of aspirin; Z79.01 Long term (current) use of anticoagulants; Z79.899 Other long term (current) drug therapy
CPT/HCPCS: 36415; 76705; 80048; 85014; 85018; 85025; 85027; 85610; 85730; 86850; 86900; 86901; 86920; 87426; 93005; 99285; J7030; J7050; J7120; A4216; J2405; J3490

== ENCOUNTER 2021-10-16 11:44 | Inpatient (IN) | payer MEDICARE, SELFPAY ==
[2021-10-16] VITALS (9 sets, daily range): BP systolic 122–158; BP diastolic 69–99; PULSE 62–93; RESP 16–18; TEMP 36–36.6; O2SAT 96–99; BMI 23.8
--- NOTE | 2021-10-16 12:09 | EDS_ITS ---
HPI History of Present Illness Chief Complaint: Weakness Detail of Chief Complaint: Generalized weakness and difficulty ambulating Informant: patient and family Narrative Narrative: Patient presents to the emergency department chief complaint of generalized weakness and difficulty ambulating intermittently. Patient apparently was just admitted to the hospital with an upper GI bleed. Patient had been on Xarelto but had upper scope and cauterization and was taken off the Xarelto. Patient went home yesterday. Family states that he gets up out of a chair and will walk for short distance and then he will just freeze and not be able to move. Patient also started having vomiting this morning and has vomited several times. Patient drinks some chocolate Ensure and he is vomiting dark brown and black material. Patient denies any abdominal pain. He denies any fevers or recent illness. Daughter states that he has had episodes like this where he cannot walk intermittently for the last 4 years and has had significant work-up and has been seen by neurology. No etiology is ever been found. Daughter states episodes are becoming more frequent. 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 Home Medications simvastatin 40 mg tablet 40 mg PO QPM 12/19/17 [History Last Taken Unknown] metoprolol tartrate 25 mg tablet 25 mg PO BID tab 11/29/18 [History Last Taken 05/05/21] alendronate 35 mg tablet 35 mg PO QWEEK 03/28/19 [History Last Taken Unknown] rivaroxaban 20 mg tablet 20 mg PO QDAY #90 tab 10/16/20 [Rx Last Taken 05/01/21] amlodipine 2.5 mg-benazepril 10 mg capsule 1 cap PO DAILY #90 cap 02/26/21 [Rx Last Taken 05/05/21] pantoprazole 40 mg PO BID #60 tab 10/15/21 [Rx Last Taken Unknown] Allergy/AdvReac Type Severity Reaction Status Date / Time terazosin Allergy lower Verified 10/16/21 11:47 blood pressure Family History Mother Hypertension Father Hypertension CVA (cerebral vascular accident) Sister Hypertension Brother Cancer Heart disease CVA (cerebral vascular accident) Dementia Surgical History History of endarterectomy History of hernia repair Social History Smoking Status: Never smoker alcohol intake: current details: occasional substance use type: does not use caffeine: No ROS ROS ED Constitutional Constitutional ED: Reports systems reviewed and no addt'l complaints, except as documented; Denies body ache(s), change in weight or chills Eyes Eyes: Denies acute decrease in peripheral vision, change in vision, double vision or loss of vision ENT ENT ED: Reports none; Denies ear pain, lip swelling, loss taste/smell, neck pain, otalgia or sore throat Cardiovascular Cardiovascular: Reports none; Denies abdominal pain, chest pain with activity, leg edema, lightheadedness, palpitations, rapid heart rate or syncope Respiratory/Chest Respiratory/Chest: Reports none; Denies change in mental status, dry cough, dyspnea, hemoptysis, shortness of breath at rest or shortness of breath with exertion Gastrointestinal Gastrointestinal: Reports none, nausea and vomiting; Denies abdominal pain, change in stool character, diarrhea, hematemesis, hematochezia, melena or rectal bleeding Genitourinary Genitourinary ED: Reports none; Denies abdominal discomfort, anuria, dysuria, genital pain or polyuria Musculoskeletal Musculoskeletal: Reports none; Denies arthralgias, back pain, difficulty walking, extremity pain, muscle weakness or myalgias Integumentary Reports none; Denies abscess or rash Neurologic Neurologic: Reports none and weakness; Denies abnormal gait, confusion, focal weakness, frequent falls, headache(s), loss of vision, numbness, paresthesias, radicular pain or vertigo Psychiatric Psychiatric: Reports systems reviewed and no addt'l complaints, except as documented and none; Denies behavioral changes, confusion, difficulty concentrating, hallucinations, suicidal ideation, tactile hallucinations or visual hallucinations Endocrine Endocrinology: Denies none, cold intolerance, excessive sweating, fatigue or heat intolerance Hematologic/Lymphatic Hematologic/Lymphatic: Reports none; Denies anemia, easy bleeding or easy bruising Allergic/Immunologic Allergic/Immunologic ED: Denies as per HPI, none, lip swelling, mouth swelling, throat swelling, tongue swelling or hives EXAM Physical Exam Const Vital Signs: 10/16/21 11:45 10/16/21 12:03 10/16/21 14:35 Temperature 96.8 F L Temperature Source Temporal Pulse Rate 93 Pulse Rate [Lying] 86 Pulse Rate [Sitting] 74 Respiratory Rate 16 Respiratory Effort Short of Breath Labored Respiratory Pattern Tachypnea Blood Pressure 146/83 H Blood Pressure [Lying] 158/73 H Blood Pressure [Sitting] 124/76 H Blood Pressure Mean 104 Blood Pressure Mean [Lying] 101 Blood Pressure Mean [Sitting] 92 Pulse Ox 97 Oxygen Delivery Method Room Air Positive well nourished and well developed General Appearance ED: well developed and NAD HEENT Reports TM's clear and moist mucous membranes normocephalic and atraumatic; Negative for trauma or tenderness Tympanic Membrane ED: Yes TM's clear Eyes PERRL and EOMs intact bilaterally General Eye ED: Negative for pale conjunctiva or scleral icterus Neck no lymphadenopathy, supple and no JVD General: Negative for tenderness Chest Wall inspection of chest normal and palpation of chest normal Chest: Negative for tenderness Resp normal respiratory effort and clear to auscultation bilaterally Effort and Inspection: Negative for respiratory distress or pain with movement Auscultation: Negative for rhonchi, wheezes or diminished lung sounds Cardio regular rate, regular rhythm, S1 normal heart sound, S2 normal heart sound and no murmurs Peripheral Pulses: pulses 2+ throughout GI normal to inspection, nondistended, normoactive bowel sounds, soft to palpation, non-tender, non-distended and no masses Back/Spine no CVA tenderness and no thoracic nor lumbar tenderness Extremity normal to inspection General Extremety ED: Negative for edema General Extremity: Negative for edema Neuro oriented x3, CN's II-XII intact bilaterally, no sensory deficits noted and gait normal Sensorium / Orientation: awake, alert, oriented to person, oriented to place and oriented to time Motor Exam: strength 5/5 throughout and strength abnormal Psych mental status grossly normal Skin no rashes or lesions noted and no wounds MDM MDM MDM Narrative Medical decision making narrative: IV line established on arrival. Patient was ordered in normal saline and placed on a wallpaper cleaner. Orthostatic vitals noted that with sitting his blood pressure dropped almost 30 points systolic and he was unable to stand. Patient was ordered a liter saline fluid bolus. His hemoglobin is improved compared to yesterday however his lactate is elevated. Gastroccult was negative. Case will be discussed with hospitalist evaluate patient for admission Lab Data Attestation: I reviewed the patient's lab results. Labs: Laboratory Results - last 24 hr 10/16/21 10/16/21 10/16/21 12:35 12:35 12:35 WBC 10.1 RBC 3.38 L Hgb 10.2 L Hct 31.7 L MCV 93.8 MCH 30.2 MCHC 32.2 RDW Std Deviation 45.3 H RDW Coeff of [place] 13.7 Plt Count 187 MPV 10.5 Immature Gran % (Auto) 0.400 Neut % (Auto) 83.5 H Lymph % (Auto) 10.8 L [place] % (Auto) 4.4 Eos % (Auto) 0.4 Baso % (Auto) 0.5 Absolute Neuts (auto) 8.4 H Absolute Lymphs (auto) 1.09 Nucleated RBC % 0 Sodium Cancelled Potassium Cancelled Chloride Cancelled Carbon Dioxide Cancelled Anion Gap Cancelled BUN Cancelled Creatinine Cancelled Estim Creat Clear Calc Cancelled Est GFR (MDRD) Af Amer Cancelled Est GFR (MDRD) Non-Af Cancelled BUN/Creatinine Ratio Cancelled Glucose Cancelled Lactic Acid Calcium Cancelled Total Bilirubin Cancelled Cancelled Direct Bilirubin Cancelled Cancelled AST Cancelled Cancelled ALT Cancelled Cancelled Alkaline Phosphatase Cancelled Cancelled Troponin I High Sens Cancelled Total Protein Cancelled Cancelled Albumin Cancelled Cancelled Globulin Cancelled Cancelled Lipase Cancelled 10/16/21 10/16/21 12:35 13:35 WBC RBC Hgb Hct MCV MCH MCHC RDW Std Deviation RDW Coeff of [place] Plt Count MPV Immature Gran % (Auto) Neut % (Auto) Lymph % (Auto) [place] % (Auto) Eos % (Auto) Baso % (Auto) Absolute Neuts (auto) Absolute Lymphs (auto) Nucleated RBC % Sodium 144 Potassium 3.7 Chloride 113 H Carbon Dioxide 27.0 Anion Gap 4 L BUN 15 Creatinine 0.90 Estim Creat Clear Calc 57.12 Est GFR (MDRD) Af Amer 103 Est GFR (MDRD) Non-Af 85 BUN/Creatinine Ratio 16.6 Glucose 137 H Lactic Acid 2.7 H* Calcium 8.0 L Total Bilirubin 0.70 Direct Bilirubin 0.25 AST 17 ALT 15 L Alkaline Phosphatase 63 Troponin I High Sens 16 Total Protein 5.8 L Albumin 2.4 L Globulin 3.4 Lipase 61 L EKG Initial EKG: Attestation: I personally reviewed and interpreted this EKG as follows: Comments: Atrial fibrillation with a right bundle branch block and old inferior infarct Discharge Plan Triage Chief Complaint: Weakness ED Provider: Braeden Hall Dx/Rx/DC Orders Clinical Impression: Weakness, Orthostatic hypotension, Atrial fibrillation, Vomiting Prescriptions: No Action simvastatin 40 mg tablet 40 mg PO QPM RF: 0 alendronate 35 mg tablet 35 mg PO QWEEK RF: 0 pantoprazole 40 mg tablet,delayed release (DR/EC) 40 mg PO BID Qty: 60 RF: 1 metoprolol tartrate 25 mg tablet 25 mg PO BID RF: 0 Xarelto 20 mg tablet 20 mg PO QDAY Qty: 90 RF: 3 Hold Instructions: Resume on 10/24/21. hold and resume on 10/14/2021 amlodipine-benazepril 2.5-10 mg capsule 1 cap PO DAILY Qty: 90 RF: 3 Primary Care Provider: Ute Walsh NP Referrals: Ute Walsh NP, PLASTIC TECHNICIAN-C [Primary Care Provider] - Disposition Disposition: Acute Care [facility]
--- NOTE | 2021-10-16 12:19 | EKG12_ITS ---
Test Reason : ASP Blood Pressure : / mmHG Vent. Rate : 096 BPM Atrial Rate : 084 BPM P-R Int : 000 ms QRS Dur : 154 ms QT Int : 424 ms P-R-T Axes : 000 015 -18 degrees QTc Int : 535 ms Atrial fibrillation Right bundle branch block Inferior infarct , age undetermined , cannot be excluded Abnormal ECG Confirmed by REJI BENJAMIN, JEFFREY ([id number]), staff editor CORTEZ REA ([id number]) on 10/19/2021 10:47:33 AM Referred By: ES Confirmed By:JEFFREY MENDOZA MD
[2021-10-16] MEDS: 0.9% Normal Saline 1,000 ML 150 ML IV ×2 (12:35→16:47)
[2021-10-16] MEDS: Ondansetron 4 MG/2 ML Vial IV (12:35)
[2021-10-16 12:51] LABS: Absolute Lymphocyte Count 1.09 X10^3/uL (0.83-4.51); Absolute Neutrophil Count 8.4 X10^3/uL (2.0-7.7); Basophil# 0.05 X10^3/uL; Basophil% 0.5 % (0-1); Eosinophil# 0.04 X10^3/uL; Eosinophils% 0.4 % (0-5); Hematocrit 31.7 % (40-54); Hemoglobin 10.2 g/dL (13.0-16.5); Lymphocyte # 1.09 X10^3/ul (0.83-4.51); Lymphocyte % 10.8 % (19-41); Mean Corp Hgb Conc 32.2 g/dL (32-36); Mean Corpuscular Hgb 30.2 pg (27.0-32.0); Mean Corpuscular Volume 93.8 fL (80-94); Mean Platelet Vol. 10.5 fl (6.2-12.0); Monocyte# 0.44 X10^3/uL; Monocyte% 4.4 % (0-10); NRBC Flagged by Analyzer 0 % (0-5); Neutrophil # 8.39 X10^3/uL (2.7-7.7); Neutrophil % 83.5 % (47-70); Platelet Count 187 K/mm3 (150-450); RBC Distribution Width CV 13.7 % (11.6-14.6); RBC Distribution Width SD 45.3 fl (35.1-43.9); Red Blood Count 3.38 M/mm3 (4.6-6.2); White Blood Count 10.1 K/mm3 (4.4-11.0)
[2021-10-16 13:22] LABS: Lactic Acid 2.7 mmol/L (0.4-1.9)
[2021-10-16 14:00] LABS: AST(SGOT) 17 U/L (15-37); Alanine Aminotransfer ALT/SGPT 15 U/L (16-61); Albumin, Serum 2.4 g/dL (3.2-5.0); Alkaline Phosphatase 63 U/L (45-117); Anion Gap 4 (5-15); BUN 15 mg/dL (7-18); BUN/Creat Ratio 16.6 RATIO (10-20); Bilirubin, Direct 0.25 mg/dL (0.00-0.30); Chloride 113 mmol/L (98-107); EST Glomerular Filtration Rate 85 mL/min (>60); Est Glom Filt Rate - Afr Amer 103 mL/min (>60); Estimated Creatinine Clearance 57.12 ml/min; Globulin 3.4 g/dL (2.2-4.2); Glucose 137 mg/dL (74-106); Lipase 61 U/L (73-393); Potassium 3.7 mmol/L (3.5-5.1); Protein, Total 5.8 g/dL (6.4-8.2); Sodium Level 144 mmol/L (136-145); Troponin-I HS 16 pg/mL (3.0-78.0)
[2021-10-16] MEDS: 0.9% Normal Saline 1,000 ML 999 ML IV ×2 (14:44→19:17)
--- NOTE | 2021-10-16 14:52 | PCM.HP.STD ---
HPI - General General Date of Admission: 10/17/21 HPI Narrative SHREE MARCUM, is a 86 M with a PMH as outlined. He was just discharged home yesterday after being seen and managed for UGI bleed. 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 He was discharged yesterday, with xarelto on hold. He went home nad per his family, he became weak and was unable to stand on his own without falling. Per family, he has had several such episodes previously and was worked up by neurologists, wih no clear diagnoses made. He admitted to some dark coffee ground emesis, but he had been drinking chocolate Ensure, so this was thought to be the reason. Vials were temp of 96.8F, with Bp of 158/73, HI of 86, RR of 16 and he was saturating at 97% on room air. CBC showed Hb of 10.2, with wbc of 10.1, platelets of 187 and Chemistry was significan for lactic acid of 2.7. He is being admitted to be managed for debility and weakness. 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 Transient cerebral ischemia Home Medications simvastatin 40 mg tablet 40 mg PO QPM 12/19/17 [History Last Taken Unknown] metoprolol tartrate 25 mg tablet 25 mg PO BID tab 11/29/18 [History Last Taken 05/05/21] alendronate 35 mg tablet 35 mg PO QWEEK 03/28/19 [History Last Taken Unknown] rivaroxaban 20 mg tablet 20 mg PO QDAY #90 tab 10/16/20 [Rx Last Taken 05/01/21] amlodipine 2.5 mg-benazepril 10 mg capsule 1 cap PO DAILY #90 cap 02/26/21 [Rx Last Taken 05/05/21] pantoprazole 40 mg PO BID #60 tab 10/15/21 [Rx Last Taken Unknown] Allergy/AdvReac Type Severity Reaction Status Date / Time terazosin Allergy lower Verified 10/16/21 11:47 blood pressure Family History Mother Hypertension Father Hypertension CVA (cerebral vascular accident) Sister Hypertension Brother Cancer Heart disease CVA (cerebral vascular accident) Dementia Surgical History History of endarterectomy History of hernia repair Social History Smoking Status: Never smoker alcohol intake: current details: occasional substance use type: does not use caffeine: No ROS Constitutional Constitutional: Reports anorexia, fatigue, malaise and weakness; Denies change in weight, fever(s) or night sweats Eyes Eyes: Denies change in vision Cardiovascular Cardiovascular: Reports lightheadedness; Denies chest pain, dyspnea on exertion, edema, orthopnea, palpitations, paroxysmal nocturnal dyspnea, rapid heart rate or syncope Respiratory/Chest Respiratory/Chest: Denies cough, dyspnea, productive cough, shortness of breath at rest or shortness of breath with exertion Gastrointestinal Gastrointestinal: Denies abdominal pain, constipation, diarrhea, dyspepsia, nausea or vomiting Genitourinary Genitourinary: Denies dysuria Neurologic Neurologic: Reports disequilibrium; Denies confusion, dizziness, focal weakness, numbness or paresthesias Psychiatric Psychiatric: Denies anxiety Hematologic/Lymphatic Hematologic/Lymphatic: Denies anemia Vital Signs Vital Signs Vital Signs: 10/16/21 11:45 10/16/21 12:03 10/16/21 14:35 Temperature 96.8 F L Temperature Source Temporal Pulse Rate 93 Pulse Rate [Lying] 86 Pulse Rate [Sitting] 74 Respiratory Rate 16 Respiratory Effort Short of Breath Labored Respiratory Pattern Tachypnea Blood Pressure 146/83 H Blood Pressure [Lying] 158/73 H Blood Pressure [Sitting] 124/76 H Blood Pressure Mean 104 Blood Pressure Mean [Lying] 101 Blood Pressure Mean [Sitting] 92 Pulse Ox 97 Oxygen Delivery Method Room Air Weight Weight: 152 lb Body Mass Index (BMI) 23.8 Physical Exam Const alert, oriented x3 and no apparent distress General Appearance: cooperative HEENT normocephalic, head/scalp atraumatic, hearing grossly normal bilaterally and moist oral mucous membranes Eyes PERRL, EOMs intact bilaterally and conjunctivae normal Neck no lymphadenopathy Resp normal respiratory effort, no retractions, no use of accessory muscles and clear to auscultation bilaterally Cardio regular rate, regular rhythm, S1 normal heart sound, S2 normal heart sound and no murmurs GI normal to inspection, nondistended, normoactive bowel sounds, soft to palpation, non-tender and non-distended Extremity normal to inspection, full ROM and no clubbing, cyanosis or edema Peripheral Pulses: Yes pulses 2+ throughout Skin no rashes or lesions noted Neuro oriented x3, CN's II-XII intact bilaterally and moves all extremities Sensorium / Orientation: awake and alert Psych affect normal Results Lab / Micro Data Result Diagrams: 10/17/21 06:16 10/17/21 06:16 Labs: Laboratory Results - last 24 hr 10/16/21 12:35: Total Bilirubin Cancelled, Direct Bilirubin Cancelled, AST Cancelled, ALT Cancelled, Alkaline Phosphatase Cancelled, Total Protein Cancelled, Albumin Cancelled, Globulin Cancelled 10/16/21 12:35: WBC 10.1, RBC 3.38 L, Hgb 10.2 L, Hct 31.7 L, MCV 93.8, MCH 30.2, MCHC 32.2, RDW Std Deviation 45.3 H, RDW Coeff of Lawrence 13.7, Plt Count 187, MPV 10.5, Immature Gran % (Auto) 0.400, Neut % (Auto) 83.5 H, Lymph % (Auto) 10.8 L, Geary % (Auto) 4.4, Eos % (Auto) 0.4, Baso % (Auto) 0.5, Absolute Neuts (auto) 8.4 H, Absolute Lymphs (auto) 1.09, Nucleated RBC % 0 10/16/21 12:35: Sodium Cancelled, Potassium Cancelled, Chloride Cancelled, Carbon Dioxide Cancelled, Anion Gap Cancelled, BUN Cancelled, Creatinine Cancelled, Estim Creat Clear Calc Cancelled, Est GFR (MDRD) Af Amer Cancelled, Est GFR (MDRD) Non-Af Cancelled, BUN/Creatinine Ratio Cancelled, Glucose Cancelled, Calcium Cancelled, Total Bilirubin Cancelled, Direct Bilirubin Cancelled, AST Cancelled, ALT Cancelled, Alkaline Phosphatase Cancelled, Troponin I High Sens Cancelled, Total Protein Cancelled, Albumin Cancelled, Globulin Cancelled, Lipase Cancelled 10/16/21 12:35: Lactic Acid 2.7 H* 10/16/21 13:35: Sodium 144, Potassium 3.7, Chloride 113 H, Carbon Dioxide 27.0, Anion Gap 4 L, BUN 15, Creatinine 0.90, Estim Creat Clear Calc 57.12, Est GFR (MDRD) Af Amer 103, Est GFR (MDRD) Non-Af 85, BUN/Creatinine Ratio 16.6, Glucose 137 H, Calcium 8.0 L, Total Bilirubin 0.70, Direct Bilirubin 0.25, AST 17, ALT 15 L, Alkaline Phosphatase 63, Troponin I High Sens 16, Total Protein 5.8 L, Albumin 2.4 L, Globulin 3.4, Lipase 61 L Micro: Microbiology 10/16/21 12:21 Vomitus Gastric Occult Blood - Final Assessment & Plan Assessment/Plan (1) Weakness: (2) Orthostatic hypotension: PLAN: #debility and weakness of LEs etiology is unclear admit to PCU under observation check orthostatics hydrate with IVF PT/OT consult. 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 Normal second portion of the duodenum. Xarelto on hold until 10/24/2021. P.o. Protonix 40 mg twice daily #History of A. fib: Currently rate controlled. On metoprolol. Check orthostatics on account of presyncope #History of TAVR: Stable #Hypertension will hold metoprolol for now due to presyncope DVT prophylaxis: SCDs. Code status: full code Patient counseled extensively about different types of CODE STATUS including full code, DNR CCA and DNR CCA. Patient elects to be full code. Total [id number]-[id number] time 16 minutes. Charges/Coding Visit Charges OBSV E&M: 77149 Initial observation care L2 Procedures Hospitalists Procedures: 65707 Advncd Care Plan 30 Min
--- NOTE | 2021-10-16 15:32 | CM.ED ---
SOCIAL WORK Reason for Consult: Discharge Planning Met with patient and family in room. Patient was just admitted and discharged home. Inquired about safety in home and possible plan for SNF as patient is unable to stand while in ED. Patient states, NO, I'm not going to the long term!!! 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 Family at bedside states, Yeah, we will figure something out. Informed CM/SW will be following up again tomorrow. Both verbalized understanding. Hospitalist to room at this time. Kalpesh Quintero, DEVELOPMENT ADVISOR, RN CLINICAL QUALITY
--- NOTE | 2021-10-16 16:04 | TELEMED_ITS ---
SOC Telemed has confirmed receipt of a request for visit. This document confirms receipt of the order initiating the consult. To find the results of the consultation, please view the patient's reports for the scanned Telemed Consult.
--- NOTE | 2021-10-16 16:17 | PCS.PANDOC ---
PANDEMIC DOCUMENTATION INITIATED: Date: 10/16/21 Time: 1600
[2021-10-16 16:46] LABS: Reflex Lactate? Y
[2021-10-16 18:06] LABS: Lactic Acid 2.8 mmol/L (0.4-1.9)
[2021-10-16] MEDS: Pantoprazole Sodium 40 MG Tablet PO (22:03)
[2021-10-16] MEDS: Atorvastatin Calcium 20 MG Tablet PO (22:03)
[2021-10-17] VITALS (11 sets, daily range): BP systolic 109–157; BP diastolic 68–79; PULSE 48–93; RESP 16; TEMP 36.4–36.7; O2SAT 94–100; BMI 23.8
[2021-10-17] MEDS: 0.9% Normal Saline 1,000 ML 150 ML IV ×3 (00:52→19:09)
[2021-10-17] MEDS: Alendronate Sodium 70 MG Tablet 35 MG PO (06:40)
[2021-10-17 06:48] LABS: Absolute Lymphocyte Count 1.65 X10^3/uL (0.83-4.51); Absolute Neutrophil Count 5.4 X10^3/uL (2.0-7.7); Basophil# 0.05 X10^3/uL; Basophil% 0.6 % (0-1); Eosinophil# 0.18 X10^3/uL; Eosinophils% 2.3 % (0-5); Hematocrit 26.2 % (40-54); Hemoglobin 8.3 g/dL (13.0-16.5); Lymphocyte # 1.65 X10^3/ul (0.83-4.51); Lymphocyte % 20.8 % (19-41); Mean Corp Hgb Conc 31.7 g/dL (32-36); Mean Corpuscular Hgb 30.3 pg (27.0-32.0); Mean Corpuscular Volume 95.6 fL (80-94); Mean Platelet Vol. 10.2 fl (6.2-12.0); Monocyte# 0.69 X10^3/uL; Monocyte% 8.7 % (0-10); NRBC Flagged by Analyzer 0 % (0-5); Neutrophil # 5.35 X10^3/uL (2.7-7.7); Neutrophil % 67.2 % (47-70); Platelet Count 152 K/mm3 (150-450); RBC Distribution Width CV 14.4 % (11.6-14.6); RBC Distribution Width SD 47.2 fl (35.1-43.9); Red Blood Count 2.74 M/mm3 (4.6-6.2)
[2021-10-17 07:13] LABS: Anion Gap 7 (5-15); BUN 9 mg/dL (7-18); BUN/Creat Ratio 9.6 RATIO (10-20); Calcium,Total 7.8 mg/dL (8.5-10.1); Chloride 113 mmol/L (98-107); Creatinine, Serum 0.94 mg/dL (0.70-1.30); EST Glomerular Filtration Rate 81 mL/min (>60); Est Glom Filt Rate - Afr Amer 98 mL/min (>60); Estimated Creatinine Clearance 54.69 ml/min; Glucose 98 mg/dL (74-106); Sodium Level 145 mmol/L (136-145)
--- NOTE | 2021-10-17 07:21 | MRI_ITS ---
ACR Level 3 findings have been noted. An addendum which confirms receipt of the report will follow. HISTORY: frequent falls. TECHNIQUE: Multiplanar and multisequence MR images of the brain were obtained without gadolinium. # of images incl. paperwork: 283. COMPARISON: 07/17/2019. FINDINGS: BRAIN PARENCHYMA: Mild-moderate T2 FLAIR hyperintense signal in the bilateral cerebral white matter. Small foci of restricted diffusion in the right frontal, left parietal, and right cerebellum. INTRACRANIAL HEMORRHAGE: No acute intracranial hemorrhage. CSF SPACES: Generalized volume loss. No midline shift or other significant mass effect. No extra-axial fluid collection. VASCULAR SYSTEM: Major intracranial flow-voids maintained. ORBITS: Unremarkable. PARANASAL SINUSES AND MASTOID AIR CELLS: Clear. 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 Chronic small vessel ischemic gliosis and volume loss. at 1225 Reported and signed by: Adriana Harris MD Electronically Signed: Adriana Harris MD at 12:24 EST Tel , Service support ,
--- NOTE | 2021-10-17 07:21 | MRI_ITS ---
HISTORY: frequent falls, weakness. TECHNIQUE: Multiplanar and multisequence MR images of the lumbar spine. IV Contrast dosage and agent: None. # of images incl. paperwork: 157. COMPARISON: None. FINDINGS: VERTEBRAE: Mild chronic anterior wedging of T12. Lumbar vertebral body heights maintained. Degenerative bone marrow endplate changes at multiple levels. ALIGNMENT: No significant anterior or posterior subluxation. Mild S-shaped scoliosis. CONUS: Normal morphology and position at L1. SOFT TISSUES: Moderate posterior subacute is edema. Small bilateral renal cysts. 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 INTERVERTEBRAL DISCS: Multilevel degenerative changes with posterior disc bulge osteophyte complexes and facet arthropathy. T12-L1: No significant central canal stenosis or foraminal narrowing. L1-2: Minimal narrowing of the thecal sac and bilateral foramina. L2-3:Mild central canal stenosis and bilateral foraminal narrowing. L3-4: Moderate central canal stenosis and left foraminal narrowing with abutment of the left L3 nerve root. L4-5: Mild central canal stenosis, moderate right, and mild left foraminal narrowing. L5-S1: No significant posterior disc herniation, central canal stenosis, or foraminal narrowing. MRI/Spine Lumbar (Routine) IMPRESSION: Multilevel degenerative disc disease as described above. at 1529 Reported and signed by: Adriana Harris MD Electronically Signed: Adriana Harris MD at 15:28 EST Tel , Service support ,
--- NOTE | 2021-10-17 07:24 | MRI_ITS ---
HISTORY: neuro deficit, stroke suspected. TECHNIQUE: Routine [place]/brain 3D time of flight MR angiogram protocol was performed without gadolinium. 3D reconstructions were reviewed. Number of images including paperwork: 197. COMPARISON: Report dated 04/05/2018. Comparison images unavailable at time of dictation. FINDINGS: VERTEBRAL ARTERIES: Patent dominant left vertebral artery with nonvisualization of the right vertebral artery again noted. BASILAR ARTERY: Patent. RIGHT SALON CUSTOMER EXPERIENCE SPECIALIST: No occlusion, significant stenosis, or aneurysm. LEFT SALON CUSTOMER EXPERIENCE SPECIALIST: No occlusion, significant stenosis, or aneurysm. RIGHT ICA:No occlusion, significant stenosis, or aneurysm. LEFT ICA: No occlusion, significant stenosis, or aneurysm. RIGHT MCA:No occlusion, significant stenosis, or aneurysm. LEFT MCA: No occlusion, significant stenosis, or aneurysm. RIGHT DIGNA: No occlusion, significant stenosis, or aneurysm. LEFT DIGNA: No occlusion, significant stenosis, or aneurysm. Absent A1 segment. MRI/MRA Head ONLY without Contrast IMPRESSION: No evidence for acute focal vascular abnormality in the [place] region. at 1227 Reported and signed by: Adriana Harris MD Electronically Signed: Adriana Harris MD at 12:26 EST Tel , Service support ,
[2021-10-17] MEDS: Pantoprazole Sodium 40 MG Tablet PO ×2 (12:00→22:00)
--- NOTE | 2021-10-17 12:27 | PN.HOSP_ITS ---
Subjective Subjective Patient seen and examined. He still complains of weakness in his lower exremities and nearly fell with walking. REview of systems is otherwise negative. He was reviewed by [facility] neurology, and he is to have MRI of the brain, MRA of the head and neck. Objective Data Objective Data Vital Signs: Vital Signs Temp Pulse Resp BP Pulse Ox 98.0 F 83 16 124/77 H 96 10/17/21 12:04 10/17/21 12:04 10/17/21 12:04 10/17/21 12:04 10/17/21 12:04 Oxygen Delivery Method Room Air Weight: 151 lb 7.321 oz Body Mass Index (BMI) 23.8 Intake & Output: Intake and Output for Last 24 Hours 10/15/21 10/16/21 10/17/21 23:59 23:59 23:59 Intake Total 3032.5 / 3032.5 1940 / 1940 Output Total 500 / 500 1200 / 1200 Balance 2532.5 / 2532.5 740 / 740 Lab / Micro Data Result Diagrams: 10/17/21 06:16 10/17/21 06:16 Labs: Laboratory Results - last 24 hr 10/16/21 12:35: Total Bilirubin Cancelled, Direct Bilirubin Cancelled, AST Cancelled, ALT Cancelled, Alkaline Phosphatase Cancelled, Total Protein Cancelled, Albumin Cancelled, Globulin Cancelled 10/16/21 12:35: WBC 10.1, RBC 3.38 L, Hgb 10.2 L, Hct 31.7 L, MCV 93.8, MCH 30.2, MCHC 32.2, RDW Std Deviation 45.3 H, RDW Coeff of Lawrence 13.7, Plt Count 187, MPV 10.5, Immature Gran % (Auto) 0.400, Neut % (Auto) 83.5 H, Lymph % (Auto) 10.8 L, Runnels % (Auto) 4.4, Eos % (Auto) 0.4, Baso % (Auto) 0.5, Absolute Neuts (auto) 8.4 H, Absolute Lymphs (auto) 1.09, Nucleated RBC % 0 10/16/21 12:35: Sodium Cancelled, Potassium Cancelled, Chloride Cancelled, Carbon Dioxide Cancelled, Anion Gap Cancelled, BUN Cancelled, Creatinine Cancelled, Estim Creat Clear Calc Cancelled, Est GFR (MDRD) Af Amer Cancelled, Est GFR (MDRD) Non-Af Cancelled, BUN/Creatinine Ratio Cancelled, Glucose Cancelled, Calcium Cancelled, Total Bilirubin Cancelled, Direct Bilirubin Cancelled, AST Cancelled, ALT Cancelled, Alkaline Phosphatase Cancelled, Troponin I High Sens Cancelled, Total Protein Cancelled, Albumin Cancelled, Globulin Cancelled, Lipase Cancelled 10/16/21 12:35: Lactic Acid 2.7 H* 10/16/21 13:35: Sodium 144, Potassium 3.7, Chloride 113 H, Carbon Dioxide 27.0, Anion Gap 4 L, BUN 15, Creatinine 0.90, Estim Creat Clear Calc 57.12, Est GFR (MDRD) Af Amer 103, Est GFR (MDRD) Non-Af 85, BUN/Creatinine Ratio 16.6, Glucose 137 H, Calcium 8.0 L, Total Bilirubin 0.70, Direct Bilirubin 0.25, AST 17, ALT 15 L, Alkaline Phosphatase 63, Troponin I High Sens 16, Total Protein 5.8 L, Albumin 2.4 L, Globulin 3.4, Lipase 61 L 10/16/21 17:10: Lactic Acid 2.8 H* 10/17/21 06:16: WBC 8.0, RBC 2.74 L, Hgb 8.3 L, Hct 26.2 L, MCV 95.6 H, MCH 30.3, MCHC 31.7 L, RDW Std Deviation 47.2 H, RDW Coeff of Lawrence 14.4, Plt Count 152, MPV 10.2, Immature Gran % (Auto) 0.400, Neut % (Auto) 67.2, Lymph % (Auto) 20.8, Runnels % (Auto) 8.7, Eos % (Auto) 2.3, Baso % (Auto) 0.6, Absolute Neuts (auto) 5.4, Absolute Lymphs (auto) 1.65, Nucleated RBC % 0 10/17/21 06:16: Sodium 145, Potassium 4.0, Chloride 113 H, Carbon Dioxide 25.0, Anion Gap 7, BUN 9, Creatinine 0.94, Estim Creat Clear Calc 54.69, Est GFR (MDRD) Af Amer 98, Est GFR (MDRD) Non-Af 81, BUN/Creatinine Ratio 9.6 L, Glucose 98, Calcium 7.8 L Micro: Microbiology 10/16/21 12:21 Vomitus Gastric Occult Blood - Final Radiography Diagnostic Testing: Radiology Impression Brain MRI 10/17/21 07:21 IMPRESSION: 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 Chronic small vessel ischemic gliosis and volume loss. at 1225 Reported and signed by: Adriana Harris MD Electronically Signed: Adriana Harris MD at 12:24 EST Tel , Service support , Physical Exam Const alert, oriented x3 and no apparent distress General Appearance: cooperative Exam Limitations: no limitations HEENT normocephalic, head/scalp atraumatic, hearing grossly normal bilaterally and moist oral mucous membranes Head and Scalp: normocephalic Eyes PERRL, EOMs intact bilaterally and conjunctivae normal Neck no lymphadenopathy Resp normal respiratory effort, no retractions, no use of accessory muscles and clear to auscultation bilaterally Cardio regular rate, regular rhythm, S1 normal heart sound, S2 normal heart sound and no murmurs GI normal to inspection, nondistended, normoactive bowel sounds, soft to palpation, non-tender and non-distended Extremity normal to inspection, full ROM and no clubbing, cyanosis or edema Peripheral Pulses: Yes pulses 2+ throughout Skin no rashes or lesions noted Neuro oriented x3, CN's II-XII intact bilaterally and moves all extremities Sensorium / Orientation: awake and alert Psych affect normal Assessment & Plan Assessment/Plan (1) Weakness: (2) Orthostatic hypotension: PLAN: # 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 * patient was on xarelto and this has been on hold due to his recent UGI bleed. will resume xarelto now after discussing wih Dr Danielle. * orthostatics also positive; will hydrate with IVF * PT/OT consult. 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 Normal second portion of the duodenum. * Xarelto on hold until 10/24/2021. P.o. Protonix 40 mg twice daily * in light of patient's newly diagnosed CVA, I discussed with Dr Danielle about resuming eliquis, and he is in agreement. * #Orthostatic hypotension: orthostatics were positive. Will hydrate with IVF. * #History of A. fib: Currently rate controlled. On metoprolol. #History of TAVR: Stable #Hypertension: resume metoprolol. DVT prophylaxis: SCDs. will resume eliquis today. Charges/Coding Visit Charges Inpatient E&M: 57746 Subs Hosp L2
[2021-10-17] MEDS: Rivaroxaban 20 MG Tablet PO (14:04)
--- NOTE | 2021-10-17 14:20 | CASEMGMT ---
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 SW met with patient and provided him with list of in network provider. Patient said that his first preference was [facility] and second was [facility]. RILEY spoke to Tonia at [facility]. Tonia said that they have discharges tomorrow and Tuesday. Tonia said that she was advised by corporate that [employer] still needs precert. RILEY faxed referral to Tonia at the [facility]. ELISHA REYNOLDS Updated. Plan: SNF at discharge Geetha BURGESS
--- NOTE | 2021-10-17 18:26 | CM.ED ---
CLEMENT Note CLEMENT left voice mail for Tonia at [facility]. Clement advised that this scientific technical writer had faxed a referral to her but if she had not received the referral to call this scientific technical writer back. As of this time Tonia has not called this scientific technical writer advising that she had NOT received the fax. Geetha BURGESS
[2021-10-17] MEDS: Atorvastatin Calcium 20 MG Tablet PO (22:00)
[2021-10-18] VITALS (8 sets, daily range): BP systolic 139–154; BP diastolic 77–98; PULSE 73–93; RESP 14–18; TEMP 36.5–37.1; O2SAT 94–98; BMI 23.8
[2021-10-18] MEDS: 0.9% Normal Saline 1,000 ML 150 ML IV ×2 (01:19→08:55)
[2021-10-18 06:49] LABS: Absolute Lymphocyte Count 1.75 X10^3/uL (0.83-4.51); Absolute Neutrophil Count 5.3 X10^3/uL (2.0-7.7); Basophil# 0.06 X10^3/uL; Basophil% 0.7 % (0-1); Eosinophil# 0.21 X10^3/uL; Eosinophils% 2.6 % (0-5); Hematocrit 26.6 % (40-54); Hemoglobin 8.7 g/dL (13.0-16.5); Lymphocyte # 1.75 X10^3/ul (0.83-4.51); Lymphocyte % 21.8 % (19-41); Mean Corp Hgb Conc 32.7 g/dL (32-36); Mean Corpuscular Hgb 30.7 pg (27.0-32.0); Mean Platelet Vol. 10.2 fl (6.2-12.0); Monocyte# 0.64 X10^3/uL; NRBC Flagged by Analyzer 0 % (0-5); Neutrophil # 5.31 X10^3/uL (2.7-7.7); Neutrophil % 66.3 % (47-70); Platelet Count 159 K/mm3 (150-450); RBC Distribution Width CV 14.6 % (11.6-14.6); RBC Distribution Width SD 47.7 fl (35.1-43.9); Red Blood Count 2.83 M/mm3 (4.6-6.2)
[2021-10-18 07:17] LABS: Anion Gap 7 (5-15); BUN 6 mg/dL (7-18); BUN/Creat Ratio 7.5 RATIO (10-20); Calcium,Total 8.1 mg/dL (8.5-10.1); Chloride 113 mmol/L (98-107); EST Glomerular Filtration Rate 98 mL/min (>60); Est Glom Filt Rate - Afr Amer 119 mL/min (>60); Estimated Creatinine Clearance 64.26 ml/min; Glucose 84 mg/dL (74-106); Potassium 3.4 mmol/L (3.5-5.1); Sodium Level 145 mmol/L (136-145)
[2021-10-18] MEDS: Rivaroxaban 20 MG Tablet PO (07:46)
[2021-10-18] MEDS: Pantoprazole Sodium 40 MG Tablet PO (07:46)
[2021-10-18] MEDS: Potassium Chloride Oral Tablet 20 MEQ 40 MEQ PO (07:47)
--- NOTE | 2021-10-18 10:33 | PCM.PN.HOSP ---
Subjective Subjective Patient seen and examined. He has no complaints today and feels well. Review of systems is otherwise negative. 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 Objective Data Objective Data Vital Signs: Vital Signs Temp Pulse Resp BP Pulse Ox 97.7 F L 88 16 154/91 H 94 10/18/21 07:55 10/18/21 07:55 10/18/21 07:55 10/18/21 07:55 10/18/21 07:55 Oxygen Delivery Method Room Air Weight: 151 lb 7.321 oz Body Mass Index (BMI) 23.8 Intake & Output: Intake and Output for Last 24 Hours 10/16/21 10/17/21 10/18/21 23:59 23:59 23:59 Intake Total 3032.5 / 3032.5 3420 / 3420 192 / 192 Output Total 500 / 500 1650 / 1650 Balance 2532.5 / 2532.5 1770 / 1770 1924 / 192 Lab / Micro Data Result Diagrams: 10/18/21 05:43 10/18/21 05:43 Labs: Laboratory Results - last 24 hr 10/18/21 05:43: WBC 8.0, RBC 2.83 L, Hgb 8.7 L, Hct 26.6 L, MCV 94.0, MCH 30.7, MCHC 32.7, RDW Std Deviation 47.7 H, RDW Coeff of Lawrence 14.6, Plt Count 159, MPV 10.2, Immature Gran % (Auto) 0.600, Neut % (Auto) 66.3, Lymph % (Auto) 21.8, [place] % (Auto) 8.0, Eos % (Auto) 2.6, Baso % (Auto) 0.7, Absolute Neuts (auto) 5.3, Absolute Lymphs (auto) 1.75, Nucleated RBC % 0 10/18/21 05:43: Sodium 145, Potassium 3.4 L, Chloride 113 H, Carbon Dioxide 25.0, Anion Gap 7, BUN 6 L, Creatinine 0.80, Estim Creat Clear Calc 64.26, Est GFR (MDRD) Af Amer 119, Est GFR (MDRD) Non-Af 98, BUN/Creatinine Ratio 7.5 L, Glucose 84, Calcium 8.1 L Micro: Microbiology 10/16/21 12:21 Vomitus Gastric Occult Blood - Final Radiography Diagnostic Testing: Radiology Impression Brain MRI 10/17/21 07:21 IMPRESSION: 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 Chronic small vessel ischemic gliosis and volume loss. 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 Chronic small vessel ischemic gliosis and volume loss. at 1225 Reported and signed by: Adriana Harris MD N.B. : MD Shikha, confirmed on 10/17/2021 12:42:17 (ET) that the healthcare facility has received the radiology report. Electronically Signed: Adriana Harris MD at 12:24 EST Tel , Service support , Lumbar Spine MRI 10/17/21 07:21 IMPRESSION: Multilevel degenerative disc disease as described above. at 1529 Reported and signed by: Adriana Harris MD Electronically Signed: Adriana Harris MD at 15:28 EST Tel , Service support , Head MRA 10/17/21 07:24 IMPRESSION: No evidence for acute focal vascular abnormality in the [place] region. at 1227 Reported and signed by: Adriana Harris MD Electronically Signed: Adriana Harris MD at 12:26 EST Tel , Service support , Physical Exam Const alert, oriented x3 and no apparent distress General Appearance: cooperative Exam Limitations: no limitations HEENT normocephalic, head/scalp atraumatic, hearing grossly normal bilaterally and moist oral mucous membranes Head and Scalp: normocephalic Eyes PERRL, EOMs intact bilaterally and conjunctivae normal Neck no lymphadenopathy Resp normal respiratory effort, no retractions, no use of accessory muscles and clear to auscultation bilaterally Cardio regular rate, regular rhythm, S1 normal heart sound, S2 normal heart sound and no murmurs GI normal to inspection, nondistended, normoactive bowel sounds, soft to palpation, non-tender and non-distended Extremity normal to inspection, full ROM and no clubbing, cyanosis or edema Skin no rashes or lesions noted Neuro oriented x3, CN's II-XII intact bilaterally and moves all extremities Sensorium / Orientation: awake and alert Psych affect normal Assessment & Plan Assessment/Plan (1) Weakness: (2) Orthostatic hypotension: PLAN: #debility and weakness of LEs due to CVA MRI of the brain showed small acute infarcts in the right frontal lobe, left parietal lobe 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 patient was on xarelto and this has been on hold due to his recent UGI bleed. will resume xarelto now after discussing with Dr Danielle. check orthostatics to check if still positive. PT/OT consult. 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 Normal second portion of the duodenum. xarelto resumed due to stroke. #History of A. fib: Currently rate controlled. On metoprolol. #History of TAVR: Stable #Hypertension: on metoprolol. amlodipine-benazepril on hold due to orthostatic hypotension. DVT prophylaxis: on xarelto. Code status: full code Disposition: awaiting placement. Charges/Coding Visit Charges OBSV E&M: 71490 Subsequent observation care L2
--- NOTE | 2021-10-18 13:13 | NURSING ---
Tonia at the called to inform us that precert was obtained for the patient.
--- NOTE | 2021-10-18 13:31 | NURSING ---
Spoke with Ronna Owens CM RN certified pest control technician. She reported that the patient is ok to go to the e today.
--- NOTE | 2021-10-18 14:48 | DS.PCM_ITS ---
Providers Date of Admission: 10/17/21 Primary Care Physician: JOSE GrayC Reason For Visit: ACUTE CVA Diagnosis Discharge Diagnosis (1) Weakness: Status: Acute Code(s): R53.1 - Weakness (2) Orthostatic hypotension: Status: Acute Code(s): I95.1 - Orthostatic hypotension (3) CVA (cerebral vascular accident): Status: Acute Code(s): I63.9 - Cerebral infarction, unspecified Medications at Discharge Home Medications simvastatin 40 mg tablet 40 mg PO QPM 12/19/17 metoprolol tartrate 25 mg tablet 25 mg PO BID tab 11/29/18 alendronate 35 mg tablet 35 mg PO QWEEK 03/28/19 rivaroxaban 20 mg tablet 20 mg PO QDAY #90 tab 10/16/20 pantoprazole 40 mg PO BID #60 tab 10/15/21 amlodipine 5 mg PO DAILY #30 tab 10/18/21 midodrine 2.5 mg PO BID #60 tab 10/18/21 Hospital Course Operations None Summary of Care Provided Minutes Spent on Discharge: 45 Hospital Course: SHREE MARCUM, is a 86 M with a PMH as outlined. He was just discharged home yesterday after being seen and managed for UGI bleed. 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 He was discharged yesterday, with xarelto on hold. He went home nad per his family, he became weak and was unable to stand on his own without falling. Per family, he has had several such episodes previously and was worked up by neurologists, wih no clear diagnoses made. He admitted to some dark coffee ground emesis, but he had been drinking chocolate Ensure, so this was thought to be the reason. Vials were temp of 96.8F, with Bp of 158/73, NH of 86, RR of 16 and he was saturating at 97% on room air. CBC showed Hb of 10.2, with wbc of 10.1, platelets of 187 and Chemistry was significant for lactic acid of 2.7. He was to be admitted to be managed for debility and weakness. Neurology was consulted and recommended an MRI of the brain to rule out a stroke as well as MRA of the head, and MRI of the lumbar spine. MRI of the brain showed small acute infarcts of the right frontal lobe, left parietal lobe and right cerebellum likely embolic in nature. MRA of the head was no significant for any acute findings an MRI of the lumbar spine was also negative for any evidence of lumbar stenosis. Patient stroke was thought to be embolic in nature as patient had not been on his anticoagulation due to his recent upper GI bleed. This was discussed with GI and decision was made to resume patient on his Xarelto. He had initially been supposed to resume his Xarelto on 10/24/2021. Patient's orthostatics were also positive and blood pressure medications were held. Patient continued to have weakness in her lower extremities and was finally agr eeable to SNF placement. He was discharged to a senior living facility on 10/18/2021. He is to follow-up with his primary care doctor in 1 to 2 weeks. Of note, his blood pressure medications were switched to amlodipine 5 mg daily and benazepril was discontinued. He was also sent on midodrine 2.5 mg twice daily on account of orthostatic hypotension. Patient was seen and examined prior to discharge. He had no complaints and felt well. Review of systems otherwise negative. Labs and vitals reviewed. Home medication reviewed and reconciled. Physical Exam Const alert, oriented x3 and no apparent distress General Appearance: cooperative Orientation / Consciousness: awake Exam Limitations: no limitations HEENT normocephalic, head/scalp atraumatic, hearing grossly normal bilaterally and moist oral mucous membranes Eyes PERRL, EOMs intact bilaterally and conjunctivae normal Neck no lymphadenopathy Resp normal respiratory effort, no retractions, no use of accessory muscles and clear to auscultation bilaterally Cardio regular rate, regular rhythm, S1 normal heart sound, S2 normal heart sound and no murmurs GI normal to inspection, nondistended, normoactive bowel sounds, soft to palpation, non-tender and non-distended Extremity normal to inspection, full ROM and no clubbing, cyanosis or edema Skin no rashes or lesions noted Neuro oriented x3, CN's II-XII intact bilaterally and moves all extremities Sensorium / Orientation: awake and alert Psych affect normal Weight / BMI Weight Weight: 151 lb 7.321 oz Body Mass Index (BMI) 23.8 ABG / Lab / Microbiology Data Result Diagrams: 10/18/21 05:43 10/18/21 05:43 Laboratory: Laboratory Results - last 24 hr 10/18/21 05:43: WBC 8.0, RBC 2.83 L, Hgb 8.7 L, Hct 26.6 L, MCV 94.0, MCH 30.7, MCHC 32.7, RDW Std Deviation 47.7 H, RDW Coeff of Lawrence 14.6, Plt Count 159, MPV 10.2, Immature Gran % (Auto) 0.600, Neut % (Auto) 66.3, Lymph % (Auto) 21.8, [place] % (Auto) 8.0, Eos % (Auto) 2.6, Baso % (Auto) 0.7, Absolute Neuts (auto) 5.3, Absolute Lymphs (auto) 1.75, Nucleated RBC % 0 10/18/21 05:43: Sodium 145, Potassium 3.4 L, Chloride 113 H, Carbon Dioxide 25.0, Anion Gap 7, BUN 6 L, Creatinine 0.80, Estim Creat Clear Calc 64.26, Est GFR (MDRD) Af Amer 119, Est GFR (MDRD) Non-Af 98, BUN/Creatinine Ratio 7.5 L, Glucose 84, Calcium 8.1 L Microbiology: Microbiology 10/16/21 12:21 Vomitus Gastric Occult Blood - Final Radiography Diagnostic Testing: Radiology Impression Lumbar Spine MRI 10/17/21 07:21 IMPRESSION: Multilevel degenerative disc disease as described above. at 1529 Reported and signed by: Adriana Harris MD Electronically Signed: Adriana Harris MD at 15:28 EST Tel , Service support , D/C Instructions Discharge Diet: Low fat / Low cholesterol Discharge Activity: Return to Normal Activity Weight Bearing Status: Weight bearing as tolerated Call your doctor if you observe: Fever of 101 or Higher, Shortness of breath, Dizziness, Chest pain and Increased palpitations (irregular heartbeat) Meaningful Use Info Meaningful Use Diagnoses (Choose all that apply): Ischemic CVA CVA Therapy Assessed for PT,OT and/or ST?: Yes Ischemic Stroke Antithrombotic order at d/c?: Yes Dx of Atrial fib/flutter?: Yes Anticoagulant at discharge?: Yes Statins at discharge?: Yes Primary Dx Acute Ischemic CVA?: Yes IV tPA ordered during stay?: No Reason IV t-PA not ordered: Treatment not Indicated Discharge Plan Admission Admit Date/Time: 10/17/21 13:21 Primary Reason for Your Visit: acute embolic CVA Attending Provider: Kerri Hanley Primary Care Provider: Ute Walsh NP Discharge Orders/Prescriptions Prescriptions: New amlodipine 5 mg tablet 5 mg PO DAILY Qty: 30 RF: 1 midodrine 2.5 mg tablet 2.5 mg PO BID Qty: 60 RF: 0 Continued simvastatin 40 mg tablet 40 mg PO QPM RF: 0 alendronate 35 mg tablet 35 mg PO QWEEK RF: 0 pantoprazole 40 mg tablet,delayed release (DR/EC) 40 mg PO BID Qty: 60 RF: 1 metoprolol tartrate 25 mg tablet 25 mg PO BID RF: 0 Xarelto 20 mg tablet 20 mg PO QDAY Qty: 90 RF: 3 Hold Instructions: Resume on 10/24/21. hold and resume on 10/14/2021 Discontinued amlodipine-benazepril 2.5-10 mg capsule 1 cap PO DAILY Qty: 90 RF: 3 Referrals / Follow Up: Devante Spicer MD [STAFF PHYSICIAN] - Within 1 Week Ute Walsh NP, MEDIA LIBRARIAN-C [Primary Care Provider] - Within 2 Weeks Disposition Disposition (needs filled in before D/C Order can be placed): Alf Facility Charges/Coding Visit Charges Inpatient E&M: 95090 Disch Hosp
--- NOTE | 2021-10-18 15:00 | PCM.TXEXTCAR ---
Diet 10/16/21 17:00 Diet: Cardiac - Heart Healthy Food consistency:: Regular Liquid Consistency:: Regular/Thin Is pt able to select menu?: Yes Routine Orders/Code Status Enema Type: Fleetz Suppository Type: Dulcolax 10mg Suppository Frequency: Daily PRN Therapies Weight Bearing: Weight bearing as tolerated Physical Therapy: Eval and Treat Occupational Therapy: Eval and Treat Problem/Diagnosis (1) Weakness: Status: Acute (2) Orthostatic hypotension: Status: Acute (3) CVA (cerebral vascular accident): Status: Acute Allergies/Procedures Done in Hospital Allergies terazosin Allergy (Verified 10/16/21 11:47) lower blood pressure Type of Care/Length of Stay Estimated LOS: Convalescent Care Less Than 30 days Type of Care Needed: Skilled Rehab Potential: Fair Prognosis: Fair Additional Orders/Day of Discharge Day of Discharge: 10/18/21 Dietary and Speech Recommendations Dietitian Recommendations/Changes: Continue cardiac diet as ordered. Offer ONS as needed if intake fails at meals. Discharge Plan Admission Admit Date/Time: 10/17/21 13:21 Primary Reason for Your Visit: acute embolic CVA Attending Provider: Kerri Hanley Primary Care Provider: Ute Walsh NP Discharge Orders/Prescriptions Prescriptions: New amlodipine 5 mg tablet 5 mg PO DAILY Qty: 30 RF: 1 midodrine 2.5 mg tablet 2.5 mg PO BID Qty: 60 RF: 0 Continued simvastatin 40 mg tablet 40 mg PO QPM RF: 0 alendronate 35 mg tablet 35 mg PO QWEEK RF: 0 pantoprazole 40 mg tablet,delayed release (DR/EC) 40 mg PO BID Qty: 60 RF: 1 metoprolol tartrate 25 mg tablet 25 mg PO BID RF: 0 Xarelto 20 mg tablet 20 mg PO QDAY Qty: 90 RF: 3 Hold Instructions: Resume on 10/24/21. hold and resume on 10/14/2021 Discontinued amlodipine-benazepril 2.5-10 mg capsule 1 cap PO DAILY Qty: 90 RF: 3 Referrals / Follow Up: Devante Spicer MD [STAFF PHYSICIAN] - Within 1 Week Ute Walsh NP, MERCHANDISE DISTRIBUTOR-C [Primary Care Provider] - Within 2 Weeks Disposition Disposition (needs filled in before D/C Order can be placed): Long Term Facility
--- NOTE | 2021-10-18 16:23 | NURSING ---
Informed daughter and patient of insurance approval for [facility]. Daughter was upset about this and was expecting to talk to the manager social responsibility on Tuesday about possibly going to TCU. This RN informed her that the patient made the decision to start the process to [facility] to [facility] as he is able to make sound decisions for himself. The daughter still proceeds to ask about patient staying until Tuesday to talk to social work about TCU. This RN informed both patient and daughter about the possibility of TCU not having a bed or insurance not approving it, as well as the possibility of losing precert to the [facility]. This RN asked patient directly if he was ok with going to the [facility]. Patient responded yes and daughter is in agreement at this time.
--- NOTE | 2021-10-18 16:30 | NURSING ---
Gave report to Christy TELLO at [facility]
== END 2021-10-18 17:28 | disposition skilled nursing facility (03) | DRG 65 ==
LOC: ED 14:56 → PCU 15:46
PROVIDERS: Admitting Provider Student in an Organized Health Care Education/Training Program; Emergency Provider Emergency Medicine; PCP Nurse Practitioner Family; Visit Provider Student in an Organized Health Care Education/Training Program
DX: I63.9 Cerebral infarction, unspecified (principal); I48.21 Permanent atrial fibrillation; I95.1 Orthostatic hypotension; N40.0 Benign prostatic hyperplasia without lower urinary tract symptoms; I10 Essential (primary) hypertension; E78.5 Hyperlipidemia, unspecified; I25.2 Old myocardial infarction; Z79.899 Other long term (current) drug therapy; Z79.01 Long term (current) use of anticoagulants; Z95.2 Presence of prosthetic heart valve
CPT/HCPCS: 36415; 70544; 70551; 72148; 80048; 80076; 82271; 83605; 83690; 84484; 85025; 93005; 97162; 97166; 97530; 99285; J7030; A4216; J2405

== ENCOUNTER 2021-11-04 10:25 | Day surgery (SDC) | payer MEDICARE, SELFPAY ==
--- NOTE | 2021-11-04 | IMM_PTH ---
PATIENT: SHREE MARCUM LOC: [facility] U#:[id number] AGE/SX: 86/M ROOM: RE11/04/[address]: Dr. Parveen Danielle DO : 1935 BED: DIS: 11/04/2021 SPEC #: [id number] RECD: 11/06/21 13:52 STATUS: MITCHEL RERima #: [id number] PETERSON: 11/04/21 00:[address]: Parveen Danielle DEPT: IMMUNOHISTOCHEMISTRY RECD BY: Margo Nino ENTERED: 11/06/21 13:53 SP TYPE: IMMUNO OTHR DR: Ute Walsh, STADIUM MANAGER-C Tissues: Esophagus, NOS Procedures: P53 (initial) KI-67 (add) PHYSICIAN & INSTITUTION [place] [id number] SPECIMEN INFORMATION: Tissue Source: Distal esophagus biopsy Clinical Info: Anemia, GI bleed Specimen Number: [id number] CPT code: 65111, 47796 METHODOLOGY: Deparaffinized sections of prefer/formalin-fixed tissue or PAP/DQ stained slides are incubated with monoclonal/polyclonal antibodies/oligonucleotide probes. Localization is made via biotin free immunoperoxidase method. Appropriate controls are performed and reacted as expected. Results on target cell population are indicated in the following table: RESULTS: ANTIBODY / CLONE RESULT P53 (DO-7) positive, focal Ki-67 (30-9) positive, moderate These tests were developed and their performance characteristics determined by [facility]. They may not have been cleared or approved by the U.S. Food and Drug Administration. The FDA has determined that such clearance or approval is not necessary. The above immunohistochemical/dualISH markers are ordered and reviewed by the Pathologist. 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 SJ:kathleen 11/09/2021 Case has been reviewed in consultation with Dr. Estrella who concurs with the above diagnosis. IDC:AM
--- NOTE | 2021-11-04 | ESO_PTH ---
PATIENT: SHREE MARCUM LOC: [facility] U#:[id number] AGE/SX: 86/M ROOM: RE11/04/[address]: Dr. Parveen Danielle DO : 1935 BED: DIS: 11/04/2021 SPEC #: [id number] RECD: 11/04/21 14:37 STATUS: MITCHEL LASHAWN #: [id number] PETERSON: 11/04/21 00:[address]: Parveen Danielle DEPT: SURGICAL PATHOLOGY RECD BY: Maximilian Ricci ENTERED: 11/05/21 10:43 SP TYPE: BRANDON VEGA DR: Ute Walsh, DIRECTOR OF CONSULTING SERVICES-C Tissues: Esophagus, NOS Procedures: Special Stain Group II Surgery Specimen Level IV Alcian Blue/PAS (control) HEADER OPERATION: EGD ([facility]) PRE-OP DIAGNOSIS: Anemia, GI bleed TISSUE SUBMITTED: Distal esophagus biopsy MICROSCOPIC DIAGNOSIS Distal esophagus, biopsy: Fragments of gastric mucosa with focal ulceration, acute and chronic inflammation, granulation tissue reaction. Focal epithelial atypia, suspicious for indefinite/low grade dysplasia. Intestinal metaplasia (goblet cell metaplasia) is not identified. See comment. RAVINDRA:kathleen 11/06/2021 COMMENT Alcian blue/PAS stain with matched control is used in the evaluation of the specimen. Immunohistochemistry ([id number]) for P53 and Ki-67 will be performed and results will be reported separately. Case has been reviewed in consultation with Dr. Estrella who concurs with the above diagnosis. IDC:AM MICROSCOPIC DESCRIPTION Slides are reviewed. GROSS DESCRIPTION Received in fixative is one container labeled with the patient's name and designated distal esophagus biopsy. The specimen consists of two irregular fragments of light tapia soft tissue that in aggregate measure 0.6 x 0.6 x 0.1 cm. The specimen is totally submitted in one cassette. / AM:kathleen 11/05/21 TC:2 CPT: 28038, 48964
[2021-11-04] MEDS: Lactated Ringers 1,000 ML 100 ML IV (10:40)
--- NOTE | 2021-11-04 10:47 | HP.PCM_ITS ---
History and Physical Date of Admission: 11/04/21 86 M who presents to the office today for Last seen as [facility] inpatient 10/14/21 for GIB. He was discharged from hospital 10/15/21. He presented to [facility] ED 10/16/21 for weakness and a new difficulty standing. It was found that SBP dropped twenty points and then he was unable to stand. He was admitted and then discharged to a SNF. GIB ? Hemoglobin was down a small amount but this may be related to IVF dilution. EGD performed 10/12/21 red blood in the lower third of the esophagus. 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 Dieulafoy lesion of stomach. Meg-Stephenson tear, injected with clips placed. Abnormal findings on liver imaging ? Workup for Budd-Chiari, amyloidosis, sarcoidosis and hemochromatosis. US liver performed 10/14/21. Liver measure 14cm with heterogeneous echogenicity. Currently residing at [facility]. Working with therapy and his goal is to return home but he continues to have difficulty with walking. Denies recurrent episodes of bleeding. Reports a small amount of blood in his incontinence product on one occasional. Feels energetic. Hemoglobin last performed 10/18/21 with result of 8.7, RBC 2.83. Daughter reports that his appetite has returned and is now eating three meals a day. ROS Const Constitutional: Positive for weakness Neuro Neurology: Positive for weakness Exam Const General: cooperative and comfortable Nutritional Appearance: average body habitus and well nourished [facility] Head: normal to inspection Ears: hearing grossly normal bilaterally Nose: external nose normal Face and sinus: normal facial exam Mouth: oral mucosae normal Throat: posterior oropharynx normal Eyes General: appearance normal, both eyes and all related structures Neck Neck: normal visual inspection Chest Chest palpation & inspection: normal inspection of the chest and normal palpation of entire chest wall Resp Effort & Inspection: normal respiratory effort Auscultation: Bilateral: Clear to Auscultation Cardio Palpation: normal PMI Rate: regular rate Rhythm: regular rhythm GI Inspection: normal to inspection Auscultation: normal bowel sounds Percussion: normal to percussion Palpation: no hepatosplenomegaly Skin General: no rashes or lesions noted Neuro General: patient alert Extrem General: normal to inspection Psych Affect: normal affect Quality Reporting Tobacco Screening ([facility] 138) Smoking Status: Never smoker Assessment and Plan Assessment and Plan (1) Anemia: Status: Acute Plan - Dr. Saini Friend, DO: His hemoglobin is up to 8.7. It was down from 14.7. He had an acute GI bleed secondary to Xarelto therapy and a daily Brad lesion. He will undergo repeat upper endoscopy not he is back on Xarelto. We will also check iron studies and give him 2 iron transfusions. (2) GI bleed: Status: Acute Orders: Orders: EGD Today Plan - Dr. Saini Friend, DO: He has not had any more signs of bleeding at this time. His daughter came with him we went into great detail regarding his risk of GI bleed on Xarelto and answered all questions. I have examined the patient and there are no changes
[2021-11-04 10:57] VITALS: BP 132/80; PULSE 61; RESP 16; TEMP 36.6; O2SAT 95; BMI 23.1
[2021-11-04 11:35] VITALS: BP 132/80; BP 93/64; PULSE 73; RESP 16; TEMP 36.5; O2SAT 98
--- NOTE | 2021-11-04 11:38 | OP.CCLET_ITS ---
07/08/2022 Griselda Gray Re : Upper GI endoscopy procedure for Marcie Singh Dear Nico This procedure was performed on Thursday, November 04, 2021. My impressions and recommendations are as follows: Impressions : - LA Grade A reflux esophagitis. Biopsied. - Medium-sized hiatal hernia. - Normal second portion of the duodenum. Recommendations : - Written discharge instructions were provided to the patient. - The signs and symptoms of potential delayed complications were discussed with the patient. - Patient has a contact number available for emergencies. - Return to normal activities tomorrow. - Resume previous diet. - Continue present medications. - Await pathology results. - Repeat upper endoscopy in 1 year for surveillance. - Return to GI clinic in 2 weeks. My findings are described in the full procedure note, which is enclosed. If I can be of further assistance, please feel free to contact me at . Sincerely, Parveen Danielel, 11/04/2021 11:38:06 AM This report has been signed electronically.
--- NOTE | 2021-11-04 11:38 | OP.EGD_ITS ---
Patient Name: Marcie Singh Procedure Date: 11/04/2021 11:20 AM Date of : 1935 Age: 86 Procedure: Upper GI endoscopy Indications: Hematemesis Providers: Parveen Danielle DO Medicines: See the Anesthesia note for documentation of the administered medications Patient Profile: This is an 86 year old male. Refer to note in patient chart for documentation of history and physical. Patient has symptoms of acute vomiting. He is status post EGD for treatment of bleeding within the past three months. Complications: No immediate complications. Procedure: Pre-Anesthesia Assessment: - Prior to the procedure, a History and Physical was performed, and patient medications and allergies were reviewed. The patient is competent. The risks and benefits of the procedure and the sedation options and risks were discussed with the patient. All questions were answered and informed consent was obtained. Patient identification and proposed procedure were verified by the physician in the pre-procedure area. Mental Status Examination: alert and oriented. Airway Examination: normal oropharyngeal airway and neck mobility. Respiratory Examination: clear to auscultation. CV Examination: normal. Prophylactic Antibiotics: The patient does not require prophylactic antibiotics. Prior Anticoagulants: The patient has taken no previous anticoagulant or antiplatelet agents. After reviewing the risks and benefits, the patient was deemed in satisfactory condition to undergo the procedure. The anesthesia plan was to use moderate sedation / analgesia (conscious sedation). Immediately prior to administration of medications, the patient was re-assessed for adequacy to receive sedatives. The heart rate, respiratory rate, oxygen saturations, blood pressure, adequacy of pulmonary ventilation, and response to care were monitored throughout the procedure. The physical status of the patient was re-assessed after the procedure. After obtaining informed consent, the endoscope was passed under direct vision. Throughout the procedure, the patient's blood pressure, pulse, and oxygen saturations were monitored continuously. The Endoscope was introduced through the mouth, and advanced to the second part of duodenum. The upper GI endoscopy was accomplished without difficulty. The patient tolerated the procedure well. Moderate Sedation: Moderate (conscious) sedation was administered by the endoscopy nurse and supervised by the endoscopist. The following parameters were monitored: oxygen saturation, heart rate, blood pressure, and response to care. Total physician intraservice time was 2 minutes. Scope In: 11:27:52 AM Scope Out: 11:30:44 AM Total Procedure Duration Time 0 hours 2 minutes 52 seconds Findings: LA Grade A (one or more mucosal breaks less than 5 mm, not extending between tops of 2 mucosal folds) esophagitis with no bleeding was found 34 to 35 cm from the incisors. Biopsies were taken with a cold forceps for histology. Estimated blood loss was minimal. A medium-sized hiatal hernia was present. No other significant abnormalities were identified in a careful examination of the stomach. The second portion of the duodenum was normal. Impression: - LA Grade A reflux esophagitis. Biopsied. - Medium-sized hiatal hernia. - Normal second portion of the duodenum. Recommendation: - Written discharge instructions were provided to the patient. - The signs and symptoms of potential delayed complications were discussed with the patient. - Patient has a contact number available for emergencies. - Return to normal activities tomorrow. - Resume previous diet. - Continue present medications. - Await pathology results. - Repeat upper endoscopy in 1 year for surveillance. - Return to GI clinic in 2 weeks. Procedure Code(s): --- Professional --- 76209, Esophagogastroduodenoscopy, flexible, transoral; with biopsy, single or multiple CPT copyright 2017 [employer]. All rights reserved. The codes documented in this report are preliminary and upon medical biller coder review may be revised to meet current compliance requirements. Parveen Danielle DO 11/04/2021 11:38:06 AM This report has been signed electronically. Number of Addenda: 1 Note Initiated On: 11/04/2021 11:20 AM Addendum Number: 1 Addendum Date: 07/08/2022 6:06:55 AM MAC was used instead of moderate sedation for the patient. Parveen Danielle DO 07/08/2022 6:06:59 AM This report has been signed electronically.
[2021-11-04 11:40] VITALS: BP 100/50; BP 132/80; PULSE 63; RESP 16; O2SAT 98
[2021-11-04 11:45] VITALS: BP 132/80; BP 97/57; PULSE 61; RESP 16; O2SAT 98
[2021-11-04 11:50] VITALS: BP 100/69; BP 132/80; PULSE 59; RESP 16; O2SAT 100
[2021-11-04 12:21] VITALS: BP 132/80
== END 2021-11-04 23:59 | disposition skilled nursing facility (03) ==
LOC: EN 10:32 → AC 10:34
PROVIDERS: PCP Nurse Practitioner Family; Referring Provider Nurse Practitioner Family; Visit Provider Internal Medicine Gastroenterology
PROC: 0DJ08ZZ Inspection of Upper Intestinal Tract, Via Natural or Artificial Opening Endoscopic (ICD-10-PCS; CPT 43235; principal; 2021-11-04 11:25)
DX: K21.00 Gastro-esophageal reflux disease with esophagitis, without bleeding (principal); I48.21 Permanent atrial fibrillation; K92.0 Hematemesis; K44.9 Diaphragmatic hernia without obstruction or gangrene; D64.9 Anemia, unspecified; I25.2 Old myocardial infarction; I51.7 Cardiomegaly; I10 Essential (primary) hypertension; I35.0 Nonrheumatic aortic (valve) stenosis; E78.00 Pure hypercholesterolemia, unspecified; Z79.01 Long term (current) use of anticoagulants; Z79.899 Other long term (current) drug therapy; Z86.73 Personal history of transient ischemic attack (TIA), and cerebral infarction without residual deficits
CPT/HCPCS: 43239; 88305; 88313; 88341; 88342; J7120; J2405

== ENCOUNTER 2021-11-11 12:49 | Outpatient (CLI) | payer MEDICARE, SELFPAY ==
[2021-11-11 13:20] VITALS: BP 137/67; PULSE 57; RESP 16; TEMP 36.8; O2SAT 100
[2021-11-11] MEDS: 0.9% NaCl Peripheral Flush Adult/Peds IV (13:35)
[2021-11-11] MEDS: Sodium Ferric Gluconat 250 MG in 0.9% Normal Saline 250 ML 135 MG IV (13:35)
[2021-11-11] MEDS: 0.9% NaCl IVPB Med Flush (250 mL) 15 ML IV (13:35)
== END 2021-11-11 23:59 | disposition short-term general hospital (02) ==
LOC: MEDOUTP 12:50
PROVIDERS: PCP Nurse Practitioner Family; Referring Provider Internal Medicine Gastroenterology; Visit Provider Internal Medicine Gastroenterology
DX: D64.9 Anemia, unspecified (principal)
CPT/HCPCS: 96365; 96366; J7050; A4216; J2916

== ENCOUNTER 2021-11-13 12:49 | Outpatient (CLI) | payer MEDICARE, SELFPAY ==
[2021-11-13 13:25] VITALS: BP 123/71; PULSE 58; RESP 16; TEMP 36.6; O2SAT 99
[2021-11-13] MEDS: Sodium Ferric Gluconat 250 MG in 0.9% Normal Saline 250 ML 135 MG IV (13:38)
[2021-11-13] MEDS: 0.9% NaCl IVPB Med Flush (250 mL) 15 ML IV (13:38)
== END 2021-11-13 23:59 | disposition short-term general hospital (02) ==
LOC: MEDOUTP 12:49
PROVIDERS: PCP Nurse Practitioner Family; Referring Provider Internal Medicine Gastroenterology; Visit Provider Internal Medicine Gastroenterology
DX: D64.9 Anemia, unspecified (principal)
CPT/HCPCS: 96365; 96366; J7050; J2916

== ENCOUNTER 2021-11-26 11:31 | Outpatient (CLI) | payer MEDICARE, SELFPAY ==
[2021-11-26 12:24] LABS: Erythrocyte Sedimentation Rate 12 mm/hr (0-20)
[2021-11-26 12:28] LABS: Absolute Lymphocyte Count 1.97 X10^3/uL (0.83-4.51); Absolute Neutrophil Count 6.1 X10^3/uL (2.0-7.7); Basophil# 0.08 X10^3/uL; Basophil% 0.9 % (0-1); Eosinophil# 0.14 X10^3/uL; Eosinophils% 1.5 % (0-5); Hematocrit 42.2 % (40-54); Hemoglobin 13.5 g/dL (13.0-16.5); Lymphocyte # 1.97 X10^3/ul (0.83-4.51); Lymphocyte % 21.3 % (19-41); Mean Corpuscular Volume 90.8 fL (80-94); Mean Platelet Vol. 9.8 fl (6.2-12.0); Monocyte# 0.97 X10^3/uL; Monocyte% 10.5 % (0-10); NRBC Flagged by Analyzer 0 % (0-5); Neutrophil # 6.07 X10^3/uL (2.7-7.7); Neutrophil % 65.4 % (47-70); Platelet Count 176 K/mm3 (150-450); RBC Distribution Width CV 15.4 % (11.6-14.6); RBC Distribution Width SD 50.4 fl (35.1-43.9); Red Blood Count 4.65 M/mm3 (4.6-6.2); White Blood Count 9.3 K/mm3 (4.4-11.0)
[2021-11-26 13:01] LABS: Ferritin 233 ng/mL (26-388); Iron 86 ug/dL (65-175); Iron Binding Capacity,Total 366 ug/dL (250-450); PERCENT IRON SATURATION 23.5 % (15.0-55.0)
[2021-11-26 13:28] LABS: ALB/GLOB Ratio 0.8 RATIO (0.9-2.4); AST(SGOT) 19 U/L (15-37); Alanine Aminotransfer ALT/SGPT 18 U/L (16-61); Albumin, Serum 3.1 g/dL (3.2-5.0); Alkaline Phosphatase 87 U/L (45-117); Anion Gap 4 (5-15); BUN 16 mg/dL (7-18); BUN/Creat Ratio 12.7 RATIO (10-20); Chloride 108 mmol/L (98-107); Creatinine, Serum 1.26 mg/dL (0.70-1.30); EST Glomerular Filtration Rate 58 mL/min (>60); Est Glom Filt Rate - Afr Amer 70 mL/min (>60); Globulin 4.1 g/dL (2.2-4.2); Glucose 85 mg/dL (74-106); Potassium 4.4 mmol/L (3.5-5.1); Protein, Total 7.2 g/dL (6.4-8.2); Sodium Level 139 mmol/L (136-145)
== END 2021-11-26 23:59 | disposition short-term general hospital (02) ==
LOC: LAB 11:32
PROVIDERS: PCP Nurse Practitioner Family; Referring Provider Internal Medicine Gastroenterology; Visit Provider Internal Medicine Gastroenterology
DX: C44.49 Other specified malignant neoplasm of skin of scalp and neck (principal); D64.9 Anemia, unspecified
CPT/HCPCS: 36415; 80053; 82728; 83540; 83550; 85025; 85652

== ENCOUNTER 2023-01-13 09:46 | Observation (INO) | payer MEDICARE, SELFPAY ==
[2023-01-13] VITALS (9 sets, daily range): BP systolic 134–170; BP diastolic 77–125; PULSE 75–106; RESP 13–18; TEMP 36.4–36.9; O2SAT 92–98; BMI 25.0; BMI 24.2
--- NOTE | 2023-01-13 10:13 | EKG12_ITS ---
Test Reason : WEAKNESS Blood Pressure : / mmHG Vent. Rate : 094 BPM Atrial Rate : 000 BPM P-R Int : 000 ms QRS Dur : 146 ms QT Int : 374 ms P-R-T Axes : 000 086 -22 degrees QTc Int : 467 ms Atrial fibrillation with premature ventricular or aberrantly conducted complexes Right bundle branch block Inferior infarct , age undetermined Abnormal ECG Confirmed by NIKO BENJAMIN, HU ([id number]), newspaper editor managing CORTEZ REA ([id number]) on 01/17/2023 12:13:23 P M Referred By: Confirmed By:MARK POPE MD
--- NOTE | 2023-01-13 10:15 | EX.ED.DYSGE1 ---
HPI History of Present Illness Chief Complaint: Weakness Informant: patient and family Narrative Narrative: Patient just feels generally weak and tired today. He had trouble getting out of bed due to generalized weakness. He denies any focal area of numbness tingling weakness. He denies any aches or pains. No headache. No nausea vomiting diarrhea. No abdominal pain cramping no urinary symptoms no cough. 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 These were scheduled. He is asymptomatic and no issues were found on appointments. Because he was feeling well he was given the COVID shot. He got that yesterday. He feels bad today with no specific symptoms as above. No confusion per family. [facility] Medical History (Updated 01/13/23 @ 14:[address] Barry Walton MD) Atrial fibrillation GERD (gastroesophageal reflux disease) GIB (gastrointestinal bleeding) High cholesterol Hypertension Osteoporosis Medical History unable to obtain unable to obtain (Awaiting to get med list from family if able) Home Medications alendronate 35 mg tablet 35 mg PO SA OSTEOPEROSIS 01/13/23 [History Last Taken 01/08/23] amlodipine 5 mg-benazepril 20 mg capsule 1 cap PO DINNER BLOOD PRESSURE 01/13/23 [History Last Taken 01/12/23] metoprolol tartrate 25 mg tablet 25 mg PO DAILY BLOOD PRESSURE 01/13/23 [History Last Taken 01/12/23] pantoprazole 40 mg tablet,delayed release 40 mg PO DINNER ACID REFLUX 01/13/23 [History Last Taken 01/12/23] rivaroxaban 20 mg tablet (Xarelto) 20 mg PO DINNER BLOOD THINNER 01/13/23 [History Last Taken 01/12/23] simvastatin 40 mg tablet 40 mg PO QHS CHOLESTEROL 01/13/23 [History Last Taken 01/12/23] Allergy/AdvReac Type Severity Reaction Status Date / Time No Known Allergies Allergy Verified 01/13/23 09:51 Surgical History (Updated 01/13/23 @ 10:32 by Sarah Jurado) S/P TAVR (transcatheter aortic valve replacement) Social History Smoking Status: Never smoker ROS ROS ED Constitutional Constitutional ED: Denies chills, fever(s) or subjective Eyes Eyes: Denies change in vision ENT ENT ED: Denies rhinorrhea Cardiovascular Cardiovascular: Denies chest pain or palpitations Respiratory/Chest Respiratory/Chest: Denies cough or dyspnea Gastrointestinal Gastrointestinal: Denies abdominal pain, nausea or vomiting Genitourinary Genitourinary ED: Denies dysuria or urinary frequency Musculoskeletal Musculoskeletal: Denies myalgias Integumentary Denies rash Neurologic Neurologic: Reports other Details: No focal weakness but he does have generalized weakness. ; Denies headache(s), paresthesias or weakness Endocrine Endocrinology: Denies polydipsia or polyuria Hematologic/Lymphatic Hematologic/Lymphatic: Denies lymphadenopathy Allergic/Immunologic Allergic/Immunologic ED: Denies urticaria EXAM Physical Exam Narrative Exam Narrative: Patient awake alert nontoxic laying in bed. He is mildly hard of hearing only. HEENT shows no trauma. Mucous membranes are minimally dry if any. No sinus tenderness. Eyes show no icterus or pallor. Neck shows no JVD or stridor. Lungs are clear bilaterally takes good deep breaths with normal saturations at 98% on room air showing no hypoxia. Heart is slightly irregular. It looks like he may have PACs. There is a lot of motion artifact on the monitor at this time. But his rate is normal at about 90. Abdomen is nondistended and completely nontender. shows no CVA or suprapubic tenderness Extremities show no edema or cords. Skin shows no rashes pallor mottling or diaphoresis Neurologically he is awake he is alert he is appropriate. He has sense of humor. He has good strength of his arms and legs with good thread spooler strength. He can pull with biceps triceps. Good facial balance. I find no focal deficit and his NIH is 0. Const Vital Signs: 01/13/23 09:48 01/13/23 10:28 01/13/23 11:54 Temperature 98.2 F Temperature Source Temporal Pulse Rate 96 106 H Respiratory Rate 13 17 Respiratory Effort Normal Non-Labored Respiratory Pattern Normal Blood Pressure 155/106 H 134/93 H Blood Pressure Mean 122 106 Pulse Ox 98 96 Oxygen Delivery Method Room Air Room Air 01/13/23 12:08 01/13/23 13:55 Temperature Temperature Source Pulse Rate 94 83 Respiratory Rate 16 17 Respiratory Effort Respiratory Pattern Blood Pressure 164/102 H 151/125 H Blood Pressure Mean 122 133 Pulse Ox 93 92 Oxygen Delivery Method Room Air Room Air MDM MDM MDM Narrative Medical decision making narrative: Were able to access an online list that the list some of his medicines as amlodipine, metoprolol, Xarelto, pantoprazole. These are consistent with his history. We tried to walk the patient. He was able to get up. But when he got up he got very stiff. The right side of his body seem to be stiffer than the left. Evidently this has been a recurrent problem ever since he had a stroke a year or 2 ago. But it is worse now. We will add a CT to make sure that there is no acute change at this time. Blood work shows signs of dehydration with elevated BUN/creatinine and hemoglobin. He is treated with some IV fluids here. But this is not really helped him significantly clinically. Urine shows no sign of infection. My independent interpretation the patient's CT shows no bleeding. Final reading does show an area that could be subacute stroke. However, this is on the right side and does not match his right-sided stiffness when he walks. We tried to walk him and this did not go well. He normally uses a walker but is not able to get around with this now. He lives with an elderly friend who is not able to to help him significantly. Blood work showed high hemoglobin but white count platelets are normal. Mild bump in BUN and creatinine. Minimal elevation of glucose urine showed no sign of infection. My independent interpretation of the patient's single view chest x-ray showed no acute process consistent with the radiology reading. The problem is this patient is having intermittent stiffness on his right which is where he had his stroke a year and a half ago. His daughter is now stating that he has had this problem on the right off and on since 2017 but its been much worse in the last week. This morning is the first time it got to the point where he cannot ambulate. This might be contributed to by his COVID immunization yesterday. He does not have new right-sided weakness at rest. He really gets stiff and shaky when he tries to walk. Since the symptoms of come back over the last week, this is not a stroke that could be treated with tPA. But with him nonambulatory he should come in the hospital for further evaluation, possible MRI, possible physical therapy consultation. Hospitalist was contacted. Lab Data Labs: Laboratory Results - last 24 hr 01/13/23 01/13/23 01/13/23 10:20 10:20 10:40 WBC 10.7 RBC 5.65 Hgb 17.2 H Hct 51.3 MCV 90.8 MCH 30.4 MCHC 33.5 RDW Std Deviation 43.6 RDW Coeff of Lawrence 13.0 Plt Count 166 MPV 9.8 Immature Gran % (Auto) 0.400 Neut % (Auto) 83.3 H Lymph % (Auto) 8.0 L Carter % (Auto) 7.3 Eos % (Auto) 0.2 Baso % (Auto) 0.8 Absolute Neuts (auto) 8.9 H Absolute Lymphs (auto) 0.86 Nucleated RBC % 0 Sodium 139 Potassium 4.2 Chloride 105 Carbon Dioxide 27.0 Anion Gap 7 BUN 19 H Creatinine 1.33 H Estim Creat Clear Calc 37.96 Est GFR (MDRD) Af Amer 66 Est GFR (MDRD) Non-Af 54 L BUN/Creatinine Ratio 14.3 Glucose 131 H Calcium 9.2 Urine Color Yellow Urine Clarity Clear Urine pH 6.0 Ur Specific M[place]el 1.015 Urine Protein 30 H Urine Glucose (UA) Normal Urine Ketones Negative Urine Occult Blood 25 H Urine Nitrite Negative Urine Bilirubin Negative Urine Urobilinogen Normal Ur Leukocyte Esterase Negative Urine RBC 0 SEEN Urine WBC 0 SEEN Ur Squamous Epith Cells 0-5 SEEN Urine Bacteria RARE Urine Mucus RARE Radiography Diagnostic Testing: Clinical Impression(s) from Imaging Studies Chest X-Ray 01/13/23 10:40 IMPRESSION: No acute findings in the chest. Electronically Signed: Mason Robles MD at 11:02 EDT Reading Location ID and State: [facility] / CT , Service support , Brain CT 01/13/23 12:15 IMPRESSION: 1. Hypodense ischemic infarct in the right anterior putamen, the adjacent right subinsular white matter and right anterior internal capsule, age is indeterminate. MRI brain with and pelvis exams will help clarify if acute CVA is a clinical consideration. 2. Confluent chronic white matter ischemic changes in the forceps minor. Electronically Signed: Mason Robles MD at 12:50 EDT Reading Location ID and State: [facility] / CT , Service support , ADDENDUM: 01/13/23 1303 IMPRESSION: 1. Hypodense ischemic infarct in the right anterior putamen, the adjacent right subinsular white matter and right anterior internal capsule, age is indeterminate. MRI brain with and pelvis exams will help clarify if acute CVA is a clinical consideration. 2. Confluent chronic white matter ischemic changes in the forceps minor. N.B. : The above Results were Read Back by Mason Robles MD to Barry Walton MD, and understanding confirmed on 01/13/2023 12:56:06 (ET). Electronically Signed: Mason Robles MD at 12:50 EDT , EKG Initial EKG: Comments: My independent interpretation of the patient's EKG done for generalized weakness shows atrial fibrillation which is a known history. Rate is controlled at 94. He does have right bundle branch block which is also not new. No acute ST elevation or depression. QRS duration is a bit long. QTc is high normal at 467 ms. Overall this is similar to an EKG from 16 October 2021 Management Discussion w/another healthcare provider: Hospitalist Discharge Plan Dx/Rx/DC Orders Clinical Impression: Stiffness due to immobility, Immunization reaction, Inability to walk, Abnormal CT scan of head Disposition Disposition: Acute Care Hospital [facility] Discharge Date/Time: 01/13/23 14:25
[2023-01-13 10:38] LABS: Absolute Lymphocyte Count 0.86 X10^3/uL (0.83-4.51); Absolute Neutrophil Count 8.9 X10^3/uL (2.0-7.7); Basophil# 0.09 X10^3/uL; Basophil% 0.8 % (0-1); Eosinophil# 0.02 X10^3/uL; Eosinophils% 0.2 % (0-5); Hematocrit 51.3 % (40-54); Hemoglobin 17.2 g/dL (13.0-16.5); Lymphocyte # 0.86 X10^3/ul (0.83-4.51); Mean Corp Hgb Conc 33.5 g/dL (32-36); Mean Corpuscular Hgb 30.4 pg (27.0-32.0); Mean Corpuscular Volume 90.8 fL (80-94); Mean Platelet Vol. 9.8 fl (6.2-12.0); Monocyte# 0.78 X10^3/uL; Monocyte% 7.3 % (0-10); NRBC Flagged by Analyzer 0 % (0-5); Neutrophil # 8.91 X10^3/uL (2.7-7.7); Neutrophil % 83.3 % (47-70); Platelet Count 166 K/mm3 (150-450); RBC Distribution Width SD 43.6 fl (35.1-43.9); Red Blood Count 5.65 M/mm3 (4.6-6.2); White Blood Count 10.7 K/mm3 (4.4-11.0)
--- NOTE | 2023-01-13 10:40 | RAD_ITS ---
EXAM: XR CHEST, 1 VIEW CLINICAL INDICATION: ? Pneumonia TECHNIQUE: Frontal view of the chest. This report was created using [employer] report generation technology. COMPARISON: None. FINDINGS: LUNGS AND PLEURAL SPACES: No suspicious infiltrates. No pneumothorax. No effusion. HEART: Mild cardiomegaly. Metallic stent across the aortic valve. MEDIASTINUM: Central airways and mediastinal contour are unremarkable. BONES/JOINTS: Unremarkable. SOFT TISSUES: Unremarkable. LYMPH NODES: Calcified nodes in the left AP window. RAD/Chest 1 View (Portable) IMPRESSION: No acute findings in the chest. Electronically Signed: Mason Robles MD at 11:02 EDT ,
[2023-01-13 10:47] LABS: Red Blood Cells-Urine 0 SEEN /hpf (0-5); White Blood Cells 0 SEEN /hpf (0-5)
[2023-01-13 10:48] LABS: Color, Urine Yellow (Yellow); Glucose, Dipstick Normal (Normal); Ketone-Dipstick Negative (Negative); Leukocyte Esterase-Dipstick Negative /ul (Negative); Nitrite-Dipstick Negative (Negative); Occult Blood-Urine 25 /ul (Negative); Protein-Dipstick 30 mg/dl (Negative); Specific Gravity, Urine 1.015 (1.002-1.030); Urine Bilirubin Dipstick Negative (Negative); Urine Clarity Clear (Clear); Urine Urobilinogen Normal (Normal)
[2023-01-13 10:50] LABS: Anion Gap 7 (5-15); BUN 19 mg/dL (7-18); BUN/Creat Ratio 14.3 RATIO (10-20); Calcium,Total 9.2 mg/dL (8.5-10.1); Chloride 105 mmol/L (98-107); Creatinine, Serum 1.33 mg/dL (0.70-1.30); EST Glomerular Filtration Rate 54 mL/min (>60); Est Glom Filt Rate - Afr Amer 66 mL/min (>60); Estimated Creatinine Clearance 37.96 ml/min; Glucose 131 mg/dL (74-106); Potassium 4.2 mmol/L (3.5-5.1); Sodium Level 139 mmol/L (136-145)
[2023-01-13 11:01] LABS: Bacteria RARE /hpf (None Seen); Mucous, Urine RARE /hpf (<or=2+); Squamous Epithelial Cells - UA 0-5 SEEN /hpf (0-5)
--- NOTE | 2023-01-13 12:15 | CT_ITS ---
We are attempting to reach an attending provider to discuss findings. An addendum with communication details will be sent when the communication is complete. EXAM: CT HEAD WITHOUT INTRAVENOUS CONTRAST CLINICAL INDICATION: weakness TECHNIQUE: Multiple axial images were obtained of the head without intravenous contrast. This CT exam was performed using one or more of the following dose reduction techniques: automated exposure control, adjustment of the mA and/or kV according to patient size, and/or use of iterative reconstruction technique. This report was created using [employer] report generation technology. RADIATION DOSE: CTDIvol = 44.99 mGy, DLP = 796.11 mGy-cm COMPARISON: None. FINDINGS: BRAIN AND EXTRA-AXIAL SPACES: Confluent hypodensities in the forceps minor are chronic white matter ischemic changes. Hypodense area in the right anterior putamen and the adjacent right anterior external capsule and right subinsular white matter. This is probably ischemic infarct and may not be recent. No intra- or extra-axial hemorrhage. No intracranial mass or mass effect. Posterior fossa structures are unremarkable. Ventricles are appropriate for age. No hydrocephalus. Basal cisterns are patent. BONES/JOINTS: Unremarkable. No discrete lytic or blastic abnormalities. SINUSES: Unremarkable as visualized. Clear. MASTOID AIR CELLS: Unremarkable. Clear. ORBITS: Visualized globes, extraocular muscles, optic nerves and retrobulbar fat appear unremarkable. CT/Brain/Head without Contrast IMPRESSION: 1. Hypodense ischemic infarct in the right anterior putamen, the adjacent right subinsular white matter and right anterior internal capsule, age is indeterminate. MRI brain with and pelvis exams will help clarify if acute CVA is a clinical consideration. 2. Confluent chronic white matter ischemic changes in the forceps minor. Electronically Signed: Mason Robles MD at 12:50 EDT ,
--- NOTE | 2023-01-13 14:15 | PCM.HP.STD ---
HPI - General General Date of Admission: 01/13/23 Date of Service: 01/13/23 Chief Complaint: Gen weakness HPI Narrative Marcie Singh is an 87-year-old male with history of atrial fibrillation, resolved GI bleed, TAVR, left endarterectomy, hypertension who presented to [facility] for generalized weakness. EMS was called due to patient being unable to get out of bed because he was very weak. He got his COVID shot yesterday. His temp was 99.7 and his O2 sat was 88% on room air and he was given 3 L of O2 via nasal cannula and improved to 98% and he was transferred to [facility] ED. In the ED heart rate 96, temp 98.2, blood pressure 155/106, 98% on room air. UA unremarkable, creatinine 1.33 with no prior value to compare and BUN 19. Glucose 131. CBC only remarkable for hemoglobin of 17.2. CT head demonstrated hypodense ischemic infarct in the right anterior putamen as well as some chronic white matter changes but ED physician spoke with radiology and symptoms would be consistent with a stroke in this area. Hospitalist consulted for admission. Spoke to patient with family member at bedside and they report that he has had this intermittent right-sided stiffness off and on for couple years and has been present for about a week this time though the generalized weakness started this morning he woke up at 630 and was able to ambulate to the bathroom but was already feeling weak and then at 930 could not move, his last known normal was last night prior to bedtime. Not feeling numb or weak anywhere. [facility] Medical History (Updated 01/13/23 @ 14:[address] Barry Walton MD) Atrial fibrillation GERD (gastroesophageal reflux disease) GIB (gastrointestinal bleeding) High cholesterol Hypertension Osteoporosis Medical History unable to obtain Home Medications alendronate 35 mg tablet 35 mg PO SA OSTEOPEROSIS 01/13/23 [History Last Taken 01/08/23] amlodipine 5 mg-benazepril 20 mg capsule 1 cap PO DINNER BLOOD PRESSURE 01/13/23 [History Last Taken 01/12/23] metoprolol tartrate 25 mg tablet 25 mg PO DAILY BLOOD PRESSURE 01/13/23 [History Last Taken 01/12/23] pantoprazole 40 mg tablet,delayed release 40 mg PO DINNER ACID REFLUX 01/13/23 [History Last Taken 01/12/23] rivaroxaban 20 mg tablet (Xarelto) 20 mg PO DINNER BLOOD THINNER 01/13/23 [History Last Taken 01/12/23] simvastatin 40 mg tablet 40 mg PO QHS CHOLESTEROL 01/13/23 [History Last Taken 01/12/23] Allergy/AdvReac Type Severity Reaction Status Date / Time No Known Allergies Allergy Verified 01/13/23 09:51 Surgical History (Updated 01/13/23 @ 10:32 by Sarah Jurado) S/P TAVR (transcatheter aortic valve replacement) Social History Smoking Status: Never smoker ROS ROS Narrative General: Denies fever/chills HENT: Denies headache, denies stuffy nose, denies sore throat EYES: Denies changes in vision Resp: Denies cough, denies shortness of breath Cardiac: Denies chest pain GI: Denies abdominal pain, denies changes in bowel, denies nausea/vomiting : Denies changes in urination Extremity: Denies swelling MSK: Generalized weakness Neuro: Denies any numbness/tingling, some right-sided stiffness intermittently Heme: Denies any bleeding or bruising Skin: Denies rashes Psychiatric: No complaints voiced Vital Signs Vital Signs Vital Signs: 01/13/23 09:48 01/13/23 10:28 01/13/23 11:54 Temperature 98.2 F Temperature Source Temporal Pulse Rate 96 106 H Respiratory Rate 13 17 Respiratory Effort Normal Non-Labored Respiratory Pattern Normal Blood Pressure 155/106 H 134/93 H Blood Pressure Mean 122 106 Pulse Ox 98 96 Oxygen Delivery Method Room Air Room Air 01/13/23 12:08 01/13/23 13:55 Temperature Temperature Source Pulse Rate 94 83 Respiratory Rate 16 17 Respiratory Effort Respiratory Pattern Blood Pressure 164/102 H 151/125 H Blood Pressure Mean 122 133 Pulse Ox 93 92 Oxygen Delivery Method Room Air Room Air Weight Weight: 72.6 kg Body Mass Index (BMI) 25.0 Physical Exam Narrative General: Alert, oriented, no apparent distress HEENT: Atraumatic, normocephalic Eyes: Anicteric, normal conjunctiva, extraocular movements intact, does have extra beats of nystagmus on far left lateral gaze and left pupil is 1 mm bigger than right which may be a variant of normal both are reactive and round Neck: Supple Respiratory: Clear to auscultation bilaterally, normal respiratory effort Cardiovascular: Regular rate and rhythm GI: Soft, nontender, nondistended Extremities: No edema Musculoskeletal: Strength 5 out of 5 in right upper extremity, 5 out of 5 left upper extremity, 5 out of 5 right lower extremity, 5 out of 5 left lower extremity Neuro: No overt focal neurological deficits, cranial nerves II through XII intact, [id number] without significant difficulty bilaterally Skin: No rashes appreciated Psych: Cooperative Results Lab / Micro Data Result Diagrams: 01/13/23 10:20 01/13/23 10:20 Labs: Laboratory Results - last 24 hr 01/13/23 10:20: WBC 10.7, RBC 5.65, Hgb 17.2 H, Hct 51.3, MCV 90.8, MCH 30.4, MCHC 33.5, RDW Std Deviation 43.6, RDW Coeff of [place] 13.0, Plt Count 166, MPV 9.8, Immature Gran % (Auto) 0.400, Neut % (Auto) 83.3 H, Lymph % (Auto) 8.0 L, [place] % (Auto) 7.3, Eos % (Auto) 0.2, Baso % (Auto) 0.8, Absolute Neuts (auto) 8.9 H, Absolute Lymphs (auto) 0.86, Nucleated RBC % 0 01/13/23 10:20: Sodium 139, Potassium 4.2, Chloride 105, Carbon Dioxide 27.0, Anion Gap 7, BUN 19 H, Creatinine 1.33 H, Estim Creat Clear Calc 37.96, Est GFR (MDRD) Af Amer 66, Est GFR (MDRD) Non-Af 54 L, BUN/Creatinine Ratio 14.3, Glucose 131 H, Calcium 9.2 01/13/23 10:40: Urine Color Yellow, Urine Clarity Clear, Urine pH 6.0, Ur Specific [place] 1.015, Urine Protein 30 H, Urine Glucose (UA) Normal, Urine Ketones Negative, Urine Occult Blood 25 H, Urine Nitrite Negative, Urine Bilirubin Negative, Urine Urobilinogen Normal, Ur Leukocyte Esterase Negative, Urine RBC 0 SEEN, Urine WBC 0 SEEN, Ur Squamous Epith Cells 0-5 SEEN, Urine Bacteria RARE, Urine Mucus RARE Radiology Impression Chest X-Ray 01/13/23 10:40 IMPRESSION: No acute findings in the chest. Electronically Signed: Mason Robles MD at 11:02 EDT , Brain CT 01/13/23 12:15 IMPRESSION: 1. Hypodense ischemic infarct in the right anterior putamen, the adjacent right subinsular white matter and right anterior internal capsule, age is indeterminate. MRI brain with and pelvis exams will help clarify if acute CVA is a clinical consideration. 2. Confluent chronic white matter ischemic changes in the forceps minor. Electronically Signed: Mason Robles MD at 12:50 EDT , ADDENDUM: 01/13/23 1303 IMPRESSION: 1. Hypodense ischemic infarct in the right anterior putamen, the adjacent right subinsular white matter and right anterior internal capsule, age is indeterminate. MRI brain with and pelvis exams will help clarify if acute CVA is a clinical consideration. 2. Confluent chronic white matter ischemic changes in the forceps minor. N.B. : The above Results were Read Back by Mason Robles MD to Barry Walton MD, and understanding confirmed on 01/13/2023 12:56:06 (ET). Electronically Signed: Mason Robles MD at 12:50 EDT , Assessment & Plan Assessment/Plan (1) Abnormal CT scan of head: (2) Inability to walk: PLAN: Plan #CVA age-indeterminate with history of CVA -Cannot rule out new CVA, will undergo stroke work-up #Neurological deficits -Admit to tele -CT head w/ chronic changes in ED as well as hypodense ischemic infarct in right anterior putamen of unclear duration -MRI/MRA -NIH q4hr -asa, statin -Echo w/ bubble study -PT/OT/Speech eval -Hold BP medications to allow for permissive hypertension for 24 hours unless SBP greater than 220 or DBP greater than 120 or until stroke is ruled out -on xeralto for DVT prophylaxis #Atrial fibrillation/hxtavr/hx L sided enarterectomy -Continue Xarelto at this time -Holding antihypertensives at this time #Hypertension -Hold antihypertensives given CVA rule out and permissive hypertension #Generalized weakness -No signs or symptoms of infection -We will check CK -PT/OT #CHANTELL vs CKDIII undetermined subtype -Pt has two medical records, other record demonstrates Cr of 1.26 on 11/26/21 bur prior to that had been 0.8-0.9 -Cr 1.33 but given also elevated BUN and hemoglobin will give hydration #DVT ppx: On Xarelto Kath Erickson MD Time spent in the patient's overall evaluation,decision-making process, review of diagnostic data, adjustment of management, discussion with other providers, nursing nursing and ancillary staff involved in patient's care documentation, 60 minutes Charges/Coding Visit Charges Inpatient E&M: 47036 Init Hosp L2
--- NOTE | 2023-01-13 14:20 | ECHOD_ITS ---
Reason For Study: TIA/CVA Procedure This was a 2D Doppler, Color Flow transthoracic echocardiogram. Exam performed portable in patient room. Left Ventricle Normal LV size. The estimated ejection fraction is 60 %. Unable to assess diastolic dysfunction. No regional wall motion abnormalities noted. Right Ventricle Normal RV size. Normal systolic function. Atria The left atrium is severely enlarged. The right atrium is moderately enlarged. No doppler evidence for ASD. Mitral Valve There is no mitral valve stenosis. Trivial mitral valve insufficiency. Tricuspid Valve There is no tricuspid stenosis. Trivial tricuspid valve insufficiency. Pulmonary artery systolic pressure is 35 mmHg. Aortic Valve TAVR valve is well seated and functioning well with no significant stenosis or regurgitation. Pulmonic Valve There is no pulmonic valvular stenosis. Trivial pulmonic valve insufficiency. Great Vessels Normal aortic root. Pericardium/Pleural No pericardial effusion. MMode/2D Measurements & Calculations LVIDd: 4.9 cm IVSd: 1.5 cm LVOT diam: 2.2 cm LVIDs: 3.7 cm LVPWd: 1.2 cm LVOT area: 3.9 cm2 RVDd: 3.6 cm FS: 25.8 % Ao root diam: 2.7 cm LAV(MOD-bp): 111.3 ml LA A4 area: 29.3 cm2 LAV(MOD-bp) Indexed: 62.2 ml/m2 LAV(MOD-sp2): 106.7 ml LAV(MOD-sp4): 111.4 ml LA dimension(2D): 4.7 cm Doppler Measurements & Calculations MV E max yovana: 90.0 cm/sec Ao V2 max: 186.8 cm/sec LV V1 max: 66.5 cm/sec Ao max P.1 mmHg LV V1 max P.8 mmHg Ao V2 mean: 127.4 cm/sec LV V1 mean P.97 mmHg Ao mean P.6 mmHg LV V1 mean: 44.7 cm/sec Ao V2 VTI: 29.5 cm LV V1 VTI: 11.4 cm AV (velocity ratio): 0.39 GUANACO(I,D): 1.5 cm2 GUANACO(V,D): 1.4 cm2 SV(LVOT): 44.5 ml PA V2 max: 58.6 cm/sec TR max yovana: 249.6 cm/sec TR max P.9 mmHg ECHO/Echo Complete Interpretation Summary The estimated ejection fraction is 60 %. Unable to assess diastolic dysfunction. The left atrium is severely enlarged. The right atrium is moderately enlarged. Trivial mitral valve insufficiency. Ordering Physician: Kath Erickson Referring Physician: Alex Perrin Performed By: Ghazala Hidalgo, VINNYCS, RVT
--- NOTE | 2023-01-13 15:08 | CT_ITS ---
INDICATION: Stroke symptoms. EXAMINATION: CTA HEAD AND CTA NECK TECHNIQUE: Routine carotid CT angiogram protocol was performed without and with IV contrast. In addition, images were obtained of the [place] of [place]. NASCET criteria using the distal ICAs for comparison were used for evaluation of stenoses. 3D reconstructions were reviewed. A radiation dose optimization technique was used for this scan. IV Contrast dosage and agent: 100 mL Isovue-370. COMPARISON: CT brain January 13, 2023. FINDINGS: --CTA NECK: AORTIC ARCH AND BRANCHES: Normal anatomy, patent. RIGHT CCA: No occlusion, significant stenosis or dissection. RIGHT ICA: No occlusion, significant stenosis or dissection. Mild mural calcification. LEFT CCA: No occlusion, significant stenosis or dissection. LEFT ICA: No occlusion, significant stenosis or dissection. Mild mural calcification. RIGHT VERTEBRAL ARTERY: Severely stenosed and/or occluded throughout its course in the neck. LEFT VERTEBRAL ARTERY: No occlusion, significant stenosis or dissection. Dominant vessel. NECK SOFT TISSUES: Unremarkable. --CTA HEAD: --Anterior circulation: ICAs: Mural calcification of the cavernous internal carotid arteries bilaterally. Moderate left cavernous ICA stenosis. Mild right cavernous ICA stenosis. ACAs: Hypoplastic left A1 segment, normal variant. No significant stenosis at the visualized segments. ACOM: Present. MCAs: No significant stenosis at the visualized segments. --Posterior circulation: PCOMs: Present. report analyst: No significant stenosis at the visualized segments. BASILAR ARTERY: No significant stenosis. VERTEBRAL ARTERIES: Normal left V4 segment. Right V4 segment appears occluded. No evidence of intracranial aneurysm or vascular malformation. CT/STROKE CTA Head AND Neck W/Con IMPRESSION: Abnormal right vertebral artery as described. No significant carotid stenosis in the neck. No dissection. Moderate left cavernous ICA stenosis. Discussed findings with the charge nurse, Shikha Reveles, at 1729 hours EST on January 13, 2023. An MRI MRI brain evaluation is planned. N.B. : The above Results were Read Back by Heriberto Mason MD to Shikha Reveles RN, and understanding confirmed on 01/13/2023 17:29:46 (ET). Electronically Signed: Heriberto Mason MD at 17:33 EDT ,
[2023-01-13 15:20] LABS: AST(SGOT) 26 U/L (15-37); Alanine Aminotransfer ALT/SGPT 27 U/L (16-61); Albumin, Serum 3.4 g/dL (3.2-5.0); Alkaline Phosphatase 84 U/L (45-117); Bilirubin, Direct 0.39 mg/dL (0.00-0.30); CPK Total, Creatine Kinase 48 U/L (39-308); Globulin 4.3 g/dL (2.2-4.2); Protein, Total 7.7 g/dL (6.4-8.2)
[2023-01-13 15:30] LABS: International Normalized Ratio 2.1; Prothrombin Time (Protime)PT. 22.9 SECONDS (11.7-14.9)
[2023-01-13] MEDS: 0.9% Normal Saline 1,000 ML 75 ML IV (16:16)
[2023-01-13] MEDS: Rivaroxaban 20 MG Tablet PO (17:32)
[2023-01-13] MEDS: Pantoprazole Sodium 40 MG Tablet PO (17:32)
--- NOTE | 2023-01-13 18:43 | MRI_ITS ---
We are attempting to reach an attending provider to discuss findings. An addendum with communication details will be sent when the communication is complete. STUDY: MRI BRAIN WITHOUT CONTRAST REASON FOR EXAM: Male, 87 years old. cva TECHNIQUE: Standardized multiplanar fat and water weighted pulse sequences were obtained. COMPARISON: CT of the brain January 13, 2023 FINDINGS: Mild atrophy and moderate periventricular white matter ischemic change without mass effect or restricted diffusion. Normal bilateral basal ganglia. Normal thalami. There is no extra-axial fluid accumulation. Normal flow voids within the major intracranial circulation suggesting patency by spin echo criteria. Normal sella turcica, pituitary gland, infundibular stalk, optic chiasm and hypothalamus. Normal tectal plate and pineal gland. Normal midbrain, vivienne and medulla. There are chronic ischemic changes within the cerebellar hemispheres bilaterally more severe on the right however there is also a tiny focal area of restricted diffusion consistent with acute ischemic changes in the left cerebellar hemisphere. Normal basal cisterns. Normal bilateral temporal bones. Normal bilateral internal auditory canals. No demonstrated orbital abnormality, within the constraints of a routine brain study. Minor mucosal thickening of the ethmoid air cells bilaterally. Atypical polyp or mucous retention cyst in left maxillary sinus possibly due to fungal disease... Normal calvarium and skull base. Normal visualized soft tissue structures. Normal visualized upper cervical spine. MRI/Brain without Contrast IMPRESSION: Chronic ischemic changes within the cerebellar hemispheres bilaterally more severe on the right with tiny focus of acute ischemia on the left Moderate periventricular white matter ischemic change without evidence for acute infarct Electronically Signed: Michael Hemphill MD at 20:25 EDT ,
--- NOTE | 2023-01-13 18:52 | PCM.HOSP.N ---
Hospitalist Note Reviewed CTA head and neck which demonstrated severely stenosed and/or occluded right vertebral artery throughout its course in the neck. Discussed with vascular, this is not consistent with his symptoms and only medical management advised at this time. He can follow with Dr. Morocho as an outpatient in the office for further monitoring and management but no inpatient intervention needed or advised. MRI pending
[2023-01-13] MEDS: Atorvastatin Calcium 40 MG Tablet PO (22:07)
[2023-01-14 02:00] VITALS: BP 112/73; PULSE 62; RESP 18; TEMP 36.2; O2SAT 93
[2023-01-14 06:00] VITALS: BP 129/98; PULSE 63; RESP 20; TEMP 36.9; O2SAT 99
[2023-01-14 06:52] LABS: Absolute Lymphocyte Count 1.74 X10^3/uL (0.83-4.51); Basophil# 0.09 X10^3/uL; Basophil% 1.3 % (0-1); Eosinophil# 0.18 X10^3/uL; Eosinophils% 2.6 % (0-5); Hematocrit 45.7 % (40-54); Lymphocyte # 1.74 X10^3/ul (0.83-4.51); Lymphocyte % 25.2 % (19-41); Mean Corp Hgb Conc 32.8 g/dL (32-36); Mean Corpuscular Hgb 30.3 pg (27.0-32.0); Mean Corpuscular Volume 92.3 fL (80-94); Mean Platelet Vol. 10.3 fl (6.2-12.0); Monocyte# 0.91 X10^3/uL; Monocyte% 13.2 % (0-10); NRBC Flagged by Analyzer 0 % (0-5); Neutrophil # 3.97 X10^3/uL (2.7-7.7); Neutrophil % 57.4 % (47-70); Platelet Count 125 K/mm3 (150-450); RBC Distribution Width CV 13.2 % (11.6-14.6); RBC Distribution Width SD 44.6 fl (35.1-43.9); Red Blood Count 4.95 M/mm3 (4.6-6.2); White Blood Count 6.9 K/mm3 (4.4-11.0)
[2023-01-14 07:41] LABS: ALB/GLOB Ratio 0.8 RATIO (0.9-2.4); AST(SGOT) 21 U/L (15-37); Alanine Aminotransfer ALT/SGPT 20 U/L (16-61); Albumin, Serum 2.7 g/dL (3.2-5.0); Alkaline Phosphatase 66 U/L (45-117); Anion Gap 9 (5-15); BUN 18 mg/dL (7-18); BUN/Creat Ratio 16.7 RATIO (10-20); Calcium,Total 8.4 mg/dL (8.5-10.1); Chloride 107 mmol/L (98-107); Cholesterol 94 mg/dL (200); Creatinine, Serum 1.08 mg/dL (0.70-1.30); EST Glomerular Filtration Rate 69 mL/min (>60); Est Glom Filt Rate - Afr Amer 83 mL/min (>60); Estimated Creatinine Clearance 46.75 ml/min; Globulin 3.5 g/dL (2.2-4.2); Glucose 98 mg/dL (74-106); High Density Lipoprotein 34 mg/dL; Potassium 3.9 mmol/L (3.5-5.1); Protein, Total 6.2 g/dL (6.4-8.2); Sodium Level 141 mmol/L (136-145); Thyroid Stim Hormone (TSH) 0.68 uIU/mL (0.358-3.74); Triglycerides 108 mg/dL; Very Low Density Lipoprotein 22 mg/dL (5-40)
[2023-01-14 08:10] VITALS: O2SAT 92
[2023-01-14] MEDS: Aspirin 81 MG TAB.CHEW PO (08:21)
--- NOTE | 2023-01-14 08:37 | PN.HOSP_ITS ---
Reason for Visit Reason for Visit: Diagnoses Difficulty in walking, not elsewhere classified (01/13/23) Abnormal findings on diagnostic imaging of skull and head, not elsewhere classified (01/13/23) Subjective Subjective Feels well. Denies any new complaints. Objective Data Objective Data Vital Signs: Vital Signs Temp Pulse Resp BP Pulse Ox O2 Del Method 36.9 C 63 20 H 129/98 H 99 Room Air 01/14/23 06:00 01/14/23 06:00 01/14/23 06:00 01/14/23 06:00 01/14/23 06:00 01/14/23 06:00 Oxygen Delivery Method Room Air Weight: 70.1 kg Body Mass Index (BMI) 24.2 Intake & Output: Intake and Output for Last 24 Hours 01/12/23 01/13/23 01/14/23 23:59 23:59 23:59 Intake Total 980 / 1220 1340 / 1340 Output Total 400 / 400 Balance 980 / 820 940 / 940 Lab / Micro Data Result Diagrams: 01/14/23 06:05 01/14/23 06:05 Labs: Laboratory Results - last 24 hr 01/13/23 10:20: WBC 10.7, RBC 5.65, Hgb 17.2 H, Hct 51.3, MCV 90.8, MCH 30.4, MCHC 33.5, RDW Std Deviation 43.6, RDW Coeff of [place] 13.0, Plt Count 166, MPV 9.8, Immature Gran % (Auto) 0.400, Neut % (Auto) 83.3 H, Lymph % (Auto) 8.0 L, [place] % (Auto) 7.3, Eos % (Auto) 0.2, Baso % (Auto) 0.8, Absolute Neuts (auto) 8.9 H, Absolute Lymphs (auto) 0.86, Nucleated RBC % 0 01/13/23 10:20: Sodium 139, Potassium 4.2, Chloride 105, Carbon Dioxide 27.0, Anion Gap 7, BUN 19 H, Creatinine 1.33 H, Estim Creat Clear Calc 37.96, Est GFR (MDRD) Af Amer 66, Est GFR (MDRD) Non-Af 54 L, BUN/Creatinine Ratio 14.3, Glucose 131 H, Calcium 9.2 01/13/23 10:20: Total Bilirubin 1.70 H, Direct Bilirubin 0.39 H, AST 26, ALT 27, Alkaline Phosphatase 84, Total Creatine Kinase 48, Total Protein 7.7, Albumin 3.4, Globulin 4.3 H 01/13/23 10:40: Urine Color Yellow, Urine Clarity Clear, Urine pH 6.0, Ur Specific [place] 1.015, Urine Protein 30 H, Urine Glucose (UA) Normal, Urine Ketones Negative, Urine Occult Blood 25 H, Urine Nitrite Negative, Urine Bilirubin Negative, Urine Urobilinogen Normal, Ur Leukocyte Esterase Negative, Urine RBC 0 SEEN, Urine WBC 0 SEEN, Ur Squamous Epith Cells 0-5 SEEN, Urine Bacteria RARE, Urine Mucus RARE 01/13/23 14:45: PT 22.9 H, INR 2.1 01/14/23 06:05: WBC 6.9, RBC 4.95, Hgb 15.0, Hct 45.7, MCV 92.3, MCH 30.3, MCHC 32.8, RDW Std Deviation 44.6 H, RDW Coeff of [place] 13.2, Plt Count 125 L, MPV 10.3 , Immature Gran % (Auto) 0.300, Neut % (Auto) 57.4, Lymph % (Auto) 25.2, [place] % (Auto) 13.2 H, Eos % (Auto) 2.6, Baso % (Auto) 1.3 H, Absolute Neuts (auto) 4.0, Absolute Lymphs (auto) 1.74, Nucleated RBC % 0 01/14/23 06:05: Sodium 141, Potassium 3.9, Chloride 107, Carbon Dioxide 25.0, Anion Gap 9, BUN 18, Creatinine 1.08, Estim Creat Clear Calc 46.75, Est GFR (MDRD) Af Amer 83, Est GFR (MDRD) Non-Af 69, BUN/Creatinine Ratio 16.7, Glucose 98, Calcium 8.4 L, Total Bilirubin 1.10 H, AST 21, ALT 20, Alkaline Phosphatase 66, Total Protein 6.2 L, Albumin 2.7 L, Globulin 3.5, Albumin/Globulin Ratio 0.8 L, Triglycerides 108, Cholesterol 94, LDL Cholesterol 38, VLDL Cholesterol 22, HDL Cholesterol 34 L, TSH 0.68 Radiography Diagnostic Testing: Radiology Impression Chest X-Ray 01/13/23 10:40 IMPRESSION: No acute findings in the chest. Electronically Signed: Mason Robles MD at 11:02 EDT , Brain CT 01/13/23 12:15 IMPRESSION: 1. Hypodense ischemic infarct in the right anterior putamen, the adjacent right subinsular white matter and right anterior internal capsule, age is indeterminate. MRI brain with and pelvis exams will help clarify if acute CVA is a clinical consideration. 2. Confluent chronic white matter ischemic changes in the forceps minor. Electronically Signed: Mason Robles MD at 12:50 EDT , ADDENDUM: 01/13/23 1303 IMPRESSION: 1. Hypodense ischemic infarct in the right anterior putamen, the adjacent right subinsular white matter and right anterior internal capsule, age is indeterminate. MRI brain with and pelvis exams will help clarify if acute CVA is a clinical consideration. 2. Confluent chronic white matter ischemic changes in the forceps minor. N.B. : The above Results were Read Back by Mason Robles MD to Barry Walton MD, and understanding confirmed on 01/13/2023 12:56:06 (ET). Electronically Signed: Mason Robles MD at 12:50 EDT , Head/Neck CTA 01/13/23 15:08 IMPRESSION: Abnormal right vertebral artery as described. No significant carotid stenosis in the neck. No dissection. Moderate left cavernous ICA stenosis. Discussed findings with the charge nurse, Shikha Reveles, at 1729 hours EST on January 13, 2023. An MRI MRI brain evaluation is planned. N.B. : The above Results were Read Back by Heriberto Mason MD to Shikha Reveles RN, and understanding confirmed on 01/13/2023 17:29:46 (ET). Electronically Signed: Heriberto Mason MD at 17:33 EDT , ADDENDUM: 01/13/23 1739 IMPRESSION: Abnormal right vertebral artery as described. No significant carotid stenosis in the neck. No dissection. Moderate left cavernous ICA stenosis. Discussed findings with the charge nurse, Shikha Reveles, at 1729 hours EST on January 13, 2023. An MRI MRI brain evaluation is planned. N.B. : The above Results were Read Back by Heriberto Mason MD to Shikha Reveles RN, and understanding confirmed on 01/13/2023 17:29:46 (ET). Electronically Signed: Heriberto Mason MD at 17:33 EDT , Brain MRI 01/13/23 18:43 IMPRESSION: Chronic ischemic changes within the cerebellar hemispheres bilaterally more severe on the right with tiny focus of acute ischemia on the left Moderate periventricular white matter ischemic change without evidence for acute infarct Electronically Signed: Michael Hemphill MD at 20:25 EDT , ADDENDUM: 01/13/23 2056 IMPRESSION: Chronic ischemic changes within the cerebellar hemispheres bilaterally more severe on the right with tiny focus of acute ischemia on the left Moderate periventricular white matter ischemic change without evidence for acute infarct N.B. : The above Results were Read Back by Michael Hemphill MD to ARIANE MCADAMS MD, and understanding confirmed on 01/13/2023 20:49:19 (ET). Electronically Signed: Michael Hemphill MD at 20:25 EDT , Physical Exam Const alert HEENT head/scalp atraumatic Resp normal respiratory effort, no retractions, no use of accessory muscles and clear to auscultation bilaterally Cardio regular rate, regular rhythm, S1 normal heart sound and S2 normal heart sound GI normal to inspection, nondistended, normoactive bowel sounds, soft to palpation and non-tender Neuro oriented x3, CN's II-XII intact bilaterally and moves all extremities Neuro Narrative: Muscle strength 5-5 in the right upper and right lower extremity. 5-5 in the left upper and left lower extremity but does have some ataxia noted. Psych affect normal Assessment & Plan Assessment/Plan (1) CVA (cerebral vascular accident): PLAN: -CT head w/ chronic changes in ED as well as hypodense ischemic infarct in right anterior putamen of unclear duration -NIH q4hr -asa, statin -Echo w/ bubble study -PT/OT/Speech eval MRI brain shows chronic ischemic changes w/i the cerebellar hemispheres bilaterally, though, more severe on the right with tiny focus of acute ischemia on left. Echocardiogram showed an EF of 60%, left atrium severely enlarged, right atrium moderately enlarged. SOC teleneurology consult Zia and I recommend to continue with aspirin and as well as rivaroxaban. Also recommend following up with neurovascular for vertebral stenosis. (2) Inability to walk: PLAN: PT OT eval and treat (3) Vertebral artery stenosis: PLAN: Severely senosis and/or occluded through the neck. Dr. Morocho notified yesterday. Given the location not consistent w acute CVA, to be followed up as outpt. PLAN: Plan Chronic conditions: * Atrial fibrillation/hxtavr/hx L sided enarterectomy -Continue Xarelto at this time -Holding antihypertensives at this time * Hypertension -Hold antihypertensives given CVA rule out and permissive h ypertension * CKDII undetermined subtype -Pt has two medical records, other record demonstrates Cr of 1.26 on 11/26/21 bur prior to that had been 0.8-0.9-Cr 1.33 but given also elevated BUN and hemoglobin will give hydration #DVT ppx: On Xarelto Charges/Coding Visit Charges Inpatient E&M: 68579 Subs Hosp L3
[2023-01-14 09:35] VITALS: BMI 24.2
[2023-01-14 10:00] VITALS: BP 124/77; PULSE 66; RESP 16; TEMP 36.3; O2SAT 97
--- NOTE | 2023-01-14 12:06 | NURSING ---
this RN assuming care of pt at this time
[2023-01-14 14:00] VITALS: BP 119/83; PULSE 68; RESP 14; TEMP 36.6; O2SAT 98
--- NOTE | 2023-01-14 14:27 | DCINST_ITS ---
Discharge Instructions Diet Discharge Diet: Low fat / Low cholesterol Dressing / Incision Call your doctor if you observe: - (unilateral weakness. ) Follow Up Care Test Results: Test results from this visit will be discussed in further detail at your follow- up appointment, if applicable. Discharge Plan Admission Admit Date/Time: 01/13/23 14:14 Primary Reason for Your Visit: stroke Attending Provider: Yash Moreno Primary Care Provider: Alex Perrin Consulting Providers: Kath Erickson Discharge Orders/Prescriptions Prescriptions: New aspirin 81 mg Tablet,Chewable 81 mg PO BREAKFAST Qty: 0 0RF atorvastatin 40 mg Tablet 40 mg PO QHS Qty: 30 0RF Continued simvastatin 40 mg tablet 40 mg PO QHS alendronate 35 mg tablet 35 mg PO SA amlodipine-benazepril 5-20 mg capsule 1 cap PO DINNER pantoprazole 40 mg tablet,delayed release (DR/EC) 40 mg PO DINNER metoprolol tartrate 25 mg tablet 25 mg PO DAILY Xarelto 20 mg tablet 20 mg PO DINNER Referrals / Follow Up: [facility] [Provider Group] - Within 1 Month (Stroke follow up) Yash Morocho MD [Med Staff - Active Staff] - Within 1 Month Alex Perrin DO [Primary Care Provider] - Within 2 Weeks Disposition Disposition (needs filled in before D/C Order can be placed): Home, Self Care
--- NOTE | 2023-01-14 14:35 | DS.PCM_ITS ---
Providers Date of Admission: 01/13/23 Primary Care Physician: Dr. Alex Perrin, DO Reason For Visit: CVA R/O GEN WEAKNESS Diagnosis Discharge Diagnosis (1) CVA (cerebral vascular accident): Status: Acute Code(s): I63.9 - Cerebral infarction, unspecified Plan: -CT head w/ chronic changes in ED as well as hypodense ischemic infarct in right anterior putamen of unclear duration -NIH q4hr -asa, statin -Echo w/ bubble study -PT/OT/Speech eval MRI brain shows chronic ischemic changes w/i the cerebellar hemispheres bilaterally, though, more severe on the right with tiny focus of acute ischemia on left. Echocardiogram showed an EF of 60%, left atrium severely enlarged, right atrium moderately enlarged. SOC teleneurology consult Zia and I recommend to continue with aspirin and as well as rivaroxaban. Also recommend following up with neurovascular for vertebral stenosis. (2) Inability to walk: Status: Acute Code(s): R26.2 - Difficulty in walking, not elsewhere classified Plan: Seen by both physical and Occupational Therapy and no additional recommen dations. (3) Vertebral artery stenosis: Status: Acute Code(s): I65.09 - Occlusion and stenosis of unspecified vertebral artery Plan: Severely senosis and/or occluded through the neck. Dr. Morocho notified yesterday. Given the location not consistent w acute CVA, to be followed up as outpt. Plan Chronic conditions: * Atrial fibrillation/hxtavr/hx L sided enarterectomy -Continue Xarelto at this time -Holding antihypertensives at this time * Hypertension -Hold antihypertensives given CVA rule out and permissive hypertension * CKDII undetermined subtype -Pt has two medical records, other record d emonstrates Cr of 1.26 on 11/26/21 bur prior to that had been 0.8-0.9-Cr 1.33 but given also elevated BUN and hemoglobin will give hydration #DVT ppx: On Xarelto Medications at Discharge Home Medications alendronate 35 mg tablet 35 mg PO SA OSTEOPEROSIS 01/13/23 amlodipine 5 mg-benazepril 20 mg capsule 1 cap PO DINNER BLOOD PRESSURE 01/13/23 metoprolol tartrate 25 mg tablet 25 mg PO DAILY BLOOD PRESSURE 01/13/23 pantoprazole 40 mg tablet,delayed release 40 mg PO DINNER ACID REFLUX 01/13/23 rivaroxaban 20 mg tablet (Xarelto) 20 mg PO DINNER BLOOD THINNER 01/13/23 simvastatin 40 mg tablet 40 mg PO QHS CHOLESTEROL 01/13/23 aspirin 81 mg chewable tablet 81 mg PO BREAKFAST #0 tabs 01/14/23 atorvastatin 40 mg tablet 40 mg PO QHS #30 tabs 01/14/23 Hospital Course Operations None Procedures 2-D Echocardiogram Summary of Care Provided Minutes Spent on Discharge: 32 Hospital Course: Patient presented with generalized weakness. Had received's COVID vaccination the day before. Patient had a CAT scan that showed a hypodense ischemic infarct in the right anterior [place] as well as chronic white matter changes. Patient underwent a CTA that showed severely stenosed and or occluded throughout its course of the right vertebral artery. MRI of the brain showed chronic ischemic changes within the cerebral hemispheres bilaterally more severe on the right wi th a tiny focus of acute ischemia on the left. Patient does have a known history of atrial fibrillation and is on rivaroxaban. Dr. Morocho, vascular surgery was contacted about the vertebral artery stenosis and given that it was contralateral to the area of the acute ischemia recommended outpatient follow- up. Patient will continue with rivaroxaban but also will be added aspirin. Additionally patient will also be added atorvastatin. Patient was seen by physical therapy and patient did well and will not require any additional therapy needs at this time. Patient will follow-up with neurology as outpatient Weight / BMI Weight Weight: 70.1 kg Body Mass Index (BMI) 24.2 ABG / Lab / Microbiology Data Result Diagrams: 01/14/23 06:05 01/14/23 06:05 Laboratory: Laboratory Results - last 24 hr 01/13/23 10:20: Total Bilirubin 1.70 H, Direct Bilirubin 0.39 H, AST 26, ALT 27, Alkaline Phosphatase 84, Total Creatine Kinase 48, Total Protein 7.7, Albumin 3.4, Globulin 4.3 H 01/13/23 14:45: PT 22.9 H, INR 2.1 01/14/23 06:05: WBC 6.9, RBC 4.95, Hgb 15.0, Hct 45.7, MCV 92.3, MCH 30.3, MCHC 32.8, RDW Std Deviation 44.6 H, RDW Coeff of [place] 13.2, Plt Count 125 L, MPV 10.3, Immature Gran % (Auto) 0.300, Neut % (Auto) 57.4, Lymph % (Auto) 25.2, [place] % (Auto) 13.2 H, Eos % (Auto) 2.6, Baso % (Auto) 1.3 H, Absolute Neuts (auto) 4.0, Absolute Lymphs (auto) 1.74, Nucleated RBC % 0 01/14/23 06:05: Sodium 141, Potassium 3.9, Chloride 107, Carbon Dioxide 25.0, Anion Gap 9, BUN 18, Creatinine 1.08, Estim Creat Clear Calc 46.75, Est GFR (MDRD) Af Amer 83, Est GFR (MDRD) Non-Af 69, BUN/Creatinine Ratio 16.7, Glucose 98, Calcium 8.4 L, Total Bilirubin 1.10 H, AST 21, ALT 20, Alkaline Phosphatase 66, Total Protein 6.2 L, Albumin 2.7 L, Globulin 3.5, Albumin/Globulin Ratio 0.8 L, Triglycerides 108, Cholesterol 94, LDL Cholesterol 38, VLDL Cholesterol 22, HDL Cholesterol 34 L, TSH 0.68 Radiography Diagnostic Testing: Radiology Impression Echocardiogram 01/13/23 14:20 Interpretation Summary The estimated ejection fraction is 60 %. Unable to assess diastolic dysfunction. The left atrium is severely enlarged. The right atrium is moderately enlarged. Trivial mitral valve insufficiency. Ordering Physician: Kath Erickson Referring Physician: Alex Perrin Performed By: Ghazala Hidalgo, RDCS, RVT Head/Neck CTA 01/13/23 15:08 IMPRESSION: Abnormal right vertebral artery as described. No significant carotid stenosis in the neck. No dissection. Moderate left cavernous ICA stenosis. Discussed findings with the charge nurse, Shikha Reveles, at 1729 hours EST on January 13, 2023. An MRI MRI brain evaluation is planned. N.B. : The above Results were Read Back by Heriberto Mason MD to Shikha Reveles RN, and understanding confirmed on 01/13/2023 17:29:46 (ET). Electronically Signed: Heriberto Mason MD at 17:33 EDT , ADDENDUM: 01/13/23 1739 IMPRESSION: Abnormal right vertebral artery as described. No significant carotid stenosis in the neck. No dissection. Moderate left cavernous ICA stenosis. Discussed findings with the charge nurse, Shikha Reveles, at 1729 hours EST on January 13, 2023. An MRI MRI brain evaluation is planned. N.B. : The above Results were Read Back by Heriberto Mason MD to Shikha Reveles RN, and understanding confirmed on 01/13/2023 17:29:46 (ET). Electronically Signed: Heriberto Mason MD at 17:33 EDT , Brain MRI 01/13/23 18:43 IMPRESSION: Chronic ischemic changes within the cerebellar hemispheres bilaterally more severe on the right with tiny focus of acute ischemia on the left Moderate periventricular white matter ischemic change without evidence for acute infarct Electronically Signed: Michael Hemphill MD at 20:25 EDT , ADDENDUM: 01/13/23 2056 IMPRESSION: Chronic ischemic changes within the cerebellar hemispheres bilaterally more severe on the right with tiny focus of acute ischemia on the left Moderate periventricular white matter ischemic change without evidence for acute infarct N.B. : The above Results were Read Back by Michael Hemphill MD to KATH ERICKSON MD, and understanding confirmed on 01/13/2023 20:49:19 (ET). Electronically Signed: Michael Hemphill MD at 20:25 EDT , D/C Instructions Discharge Diet: Low fat / Low cholesterol Call your doctor if you observe: - (unilateral weakness. ) Meaningful Use Info Meaningful Use Diagnoses (Choose all that apply): Ischemic CVA CVA Therapy Assessed for PT,OT and/or ST?: Yes Ischemic Stroke Antithrombotic order at d/c?: Yes Dx of Atrial fib/flutter?: Yes Anticoagulant at discharge?: Yes Statins at discharge?: Yes Primary Dx Acute Ischemic CVA?: Yes IV thrombolytic ordered during stay?: No Reason IV thrombolytic not ordered: Procedure not Indicated Discharge Plan Admission Admit Date/Time: 01/13/23 14:14 Primary Reason for Your Visit: stroke Attending Provider: Yash Moreno Primary Care Provider: Alex Perrin Consulting Providers: Kath Erickson Discharge Orders/Prescriptions Prescriptions: New aspirin 81 mg Tablet,Chewable 81 mg PO BREAKFAST Qty: 0 0RF atorvastatin 40 mg Tablet 40 mg PO QHS Qty: 30 0RF Continued simvastatin 40 mg tablet 40 mg PO QHS alendronate 35 mg tablet 35 mg PO SA amlodipine-benazepril 5-20 mg capsule 1 cap PO DINNER pantoprazole 40 mg tablet,delayed release (DR/EC) 40 mg PO DINNER metoprolol tartrate 25 mg tablet 25 mg PO DAILY Xarelto 20 mg tablet 20 mg PO DINNER Referrals / Follow Up: [facility] [Provider Group] - Within 1 Month (Stroke follow up) Yash Morocho MD [Med Staff - Active Staff] - Within 1 Month Alex Perrin DO [Primary Care Provider] - Within 2 Weeks Disposition Disposition (needs filled in before D/C Order can be placed): Home, Self Care Charges/Coding Visit Charges Inpatient E&M: 43479 Disch Hosp >30min
--- NOTE | 2023-01-14 15:12 | CASEMGMT ---
ELISHA CM in to complete PHILIPPE form with patient. RN GAIL explained PHILIPPE form to patient, patient voiced understanding. Patient signed PHILIPPE Form and filed in chart. RN GAIL provided patient with signed PHILIPPE form. Patient had no further questions or concerns at this time.
[2023-01-14 16:00] VITALS: BMI 24.2
== END 2023-01-14 14:33 | disposition home or self-care (01) ==
LOC: ED 14:00 → PCU 14:19
PROVIDERS: Admitting Provider Internal Medicine; Emergency Provider Emergency Medicine; PCP Student in an Organized Health Care Education/Training Program
DX: I63.9 Cerebral infarction, unspecified (principal); N17.9 Acute kidney failure, unspecified; I48.91 Unspecified atrial fibrillation; N18.30 Chronic kidney disease, stage 3 unspecified; I67.82 Cerebral ischemia; R26.2 Difficulty in walking, not elsewhere classified; Z79.83 Long term (current) use of bisphosphonates; I12.9 Hypertensive chronic kidney disease with stage 1 through stage 4 chronic kidney disease, or unspecified chronic kidney disease; Z79.01 Long term (current) use of anticoagulants; E86.0 Dehydration; E78.00 Pure hypercholesterolemia, unspecified; Z79.899 Other long term (current) drug therapy; K21.9 Gastro-esophageal reflux disease without esophagitis; M81.0 Age-related osteoporosis without current pathological fracture; I08.1 Rheumatic disorders of both mitral and tricuspid valves
CPT/HCPCS: 36415; 70450; 70496; 70498; 70551; 71045; 80048; 80053; 80061; 80076; 81001; 82550; 84443; 85025; 85610; 93005; 93306; 94668; 94762; 96360; 96361; 97162; 97165; 99221; 99252; 99285; J7030; J7040; Q9967; A4216; G0378; G0463

== ENCOUNTER → 2023-01-26 | Outpatient (CLI) | payer MEDICARE, SELFPAY ==
--- NOTE | 2023-01-26 09:19 | BD_ITS ---
STUDY: DUAL ENERGY X-RAY ABSORPTIOMETRY / DXA REASON FOR EXAM: Male, 87 years old. M810 TECHNIQUE: Bone Mineral Density (BMD) measurements of lumbar spine and bilateral hips were obtained. COMPARISON: None. FINDINGS: Lumbar Spine (L1-L4): g/cm2 (1.132) / T-score (0.7) / Z-score (2.0) Findings are suggestive of normal bone density with a low fracture risk. Left Femur Total: g/cm2 (0.981) / T-score (-0.3) / Z-score (0.9) Left Femoral Neck: g/cm2 (0.697) / T-score (-1.7) / Z-score (0.0) Right Femur Total: g/cm2 (0.892) / T-score (-0.9) / Z-score (0.3) Right Femoral Neck: g/cm2 (0.692) / T-score (-1.7) / Z-score (0.0) BD/Dexa Bone Density Study IMPRESSION: The patient is considered osteopenic as outlined below according to World [place] Organization (WHO) criteria with a moderate fracture risk. Reference Information: The T-score is the number of standard deviations above or below the standard which is normal for young adults at their peak bone mineral density. The World Health Organization (WHO) interprets the T-scores as follows: Above -1 Normal bone density Between -1 and -2.5 Osteopenia Equal to / or below -2.5 Osteoporosis As a practical clinical guideline, osteopenia may be graded as follows: Mild -1 through -1.5 Moderate -1.6 through -2.0 Severe -2.1 through -2.4 The Z-score is the number of standard deviations above or below age-matched controls. A Z-score of less than -1.5 would be considered abnormal. References: 1. NIH Osteoporosis and Related Bone Diseases www osteo.org 2. International Society for Clinical Densitometry www iscd.org 3. National Osteoporosis Foundation www nof.org Electronically Signed: Jasper Reed MD at 9:39 EDT ,
[2023-01-26 10:33] LABS: Hematocrit 52.3 % (40-54); Hemoglobin 17.5 g/dL (13.0-16.5); Mean Corp Hgb Conc 33.5 g/dL (32-36); Mean Corpuscular Hgb 30.5 pg (27.0-32.0); Mean Corpuscular Volume 91.3 fL (80-94); Mean Platelet Vol. 9.9 fl (6.2-12.0); Platelet Count 204 K/mm3 (150-450); RBC Distribution Width CV 13.1 % (11.6-14.6); Red Blood Count 5.73 M/mm3 (4.6-6.2); White Blood Count 9.2 K/mm3 (4.4-11.0)
[2023-01-26 10:41] LABS: ALB/GLOB Ratio 0.8 RATIO (0.9-2.4); AST(SGOT) 27 U/L (15-37); Alanine Aminotransfer ALT/SGPT 34 U/L (16-61); Albumin, Serum 3.4 g/dL (3.2-5.0); Alkaline Phosphatase 92 U/L (45-117); Anion Gap 5 (5-15); BUN 18 mg/dL (7-18); BUN/Creat Ratio 13.8 RATIO (10-20); Calcium,Total 8.9 mg/dL (8.5-10.1); Chloride 107 mmol/L (98-107); Cholesterol 140 mg/dL (200); EST Glomerular Filtration Rate 56 mL/min (>60); Est Glom Filt Rate - Afr Amer 67 mL/min (>60); Globulin 4.4 g/dL (2.2-4.2); Glucose 105 mg/dL (74-106); High Density Lipoprotein 48 mg/dL; Protein, Total 7.8 g/dL (6.4-8.2); Sodium Level 139 mmol/L (136-145); Triglycerides 162 mg/dL; Very Low Density Lipoprotein 32 mg/dL (5-40)
[2023-01-26 11:04] LABS: Vitamin D,25 Hydroxy 27.9 ng/mL
== END | disposition home or self-care (01) ==
PROVIDERS: PCP Student in an Organized Health Care Education/Training Program; Visit Provider Student in an Organized Health Care Education/Training Program
DX: Z00.00 Encounter for general adult medical examination without abnormal findings (principal); I48.0 Paroxysmal atrial fibrillation; I63.9 Cerebral infarction, unspecified; R97.20 Elevated prostate specific antigen [PSA]; N40.0 Benign prostatic hyperplasia without lower urinary tract symptoms; Z12.5 Encounter for screening for malignant neoplasm of prostate; E55.9 Vitamin D deficiency, unspecified; M81.0 Age-related osteoporosis without current pathological fracture; G45.9 Transient cerebral ischemic attack, unspecified; I10 Essential (primary) hypertension; E78.5 Hyperlipidemia, unspecified
CPT/HCPCS: 36415; 77080; 80053; 80061; 82306; 84153; 85027

== ENCOUNTER → 2023-02-09 | Outpatient (CLI) | payer MEDICARE, SELFPAY ==
--- NOTE | 2023-02-09 09:49 | CDU_ITS ---
Reason For Study: HX CVA/TIA Rt. Velocities/BP Lt. Velocities/BP Prox CCA 53.5/8.1 cm/sec. Prox CCA 53.4/10.6 cm/sec. Mid CCA 38.4/10.0 cm/sec. Mid CCA 48.5/9.2 cm/sec. Dist CCA 38.1/9.7 cm/sec. Dist CCA 42.4/11.0 cm/sec. Prox ICA 36.7/9.7 cm/sec. Prox ICA 38.1/6.1 cm/sec. Mid ICA 47.4/14.7 cm/sec. Mid ICA 39.6/9.7 cm/sec. Dist ICA 63.1/17.0 cm/sec. Dist ICA 53.1/13.2 cm/sec. Rt. ICA/CCA = 1.6. Lt. ICA/CCA = 1.1. Prox ECA 75.9/7.8 cm/sec. Prox ECA 80.6/6.9 cm/sec. Rt. Vert. 61.0/5.3 cm/sec. Lt. Vert. 31.7/10.4 cm/sec. Right Extracranial There is homogeneous, smooth atherosclerotic plaque noted in the right common carotid artery. There is heterogeneous, irregular atherosclerotic plaque noted in the right internal carotid artery. There is heterogeneous, irregular atherosclerotic plaque noted in the right external carotid artery. Antegrade flow is noted in the right vertebral artery. Left Extracranial There is homogeneous, smooth atherosclerotic plaque noted in the left common carotid artery. There is heterogeneous, irregular atherosclerotic plaque noted in the left internal carotid artery. There is heterogeneous, irregular atherosclerotic plaque noted in the left external carotid artery. Antegrade flow is noted in the left vertebral artery. Procedure Carotid Duplex 40194. This is a Carotid Duplex examination using B-mode, color flow and specral Doppler. The exam was diagnostic. Exam performed in department. VL/Carotid Duplex Ultrasound Interpretation Summary Mild (<50%) stenosis right extracranial internal carotid. Mild (<50%) stenosis left extracranial internal carotid. Patent and antegrade vertebrals bilaterally. Ordering Physician: Siena Mercedes Referring Physician: Siena Mercedes Performed By: Christian Arthur RVT
== END | disposition home or self-care (01) ==
LOC: CVS 09:48
PROVIDERS: PCP Student in an Organized Health Care Education/Training Program; Referring Provider Physician Assistant; Visit Provider Physician Assistant
DX: R55 Syncope and collapse (principal); I63.9 Cerebral infarction, unspecified; I65.09 Occlusion and stenosis of unspecified vertebral artery; Z98.890 Other specified postprocedural states
CPT/HCPCS: 93880

== ENCOUNTER 2023-05-30 15:30 | Outpatient (RCR) | payer MEDICARE, SELFPAY ==
--- NOTE | 2023-04-27 18:56 | HP.PTEVAL ---
Patient's Visit Information Visit Information Visit Information: SHREE MARCUM is a 87 year old M referred to Physical Therapy by Dr. Alex Perrin DO with a diagnosis of weakness and CVA. Date of Evaluation: 04/27/23 Physical Therapist: ANIA Verdin Visit Plan Frequency: 2x /Week Duration: 2 Months Plan: 2X/ week for 4-8 weeks for static and then progressing to dynamic balance on and off the foam, walking with his walker with head turns, sit to stand transfers and standing still upon standing immed, turning with his walker without veering, with HEP Subjective Subjective: Pt is here for PT cause he can not walk. 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 He had a stroke back in 2020 and one in December of this year. He is here now because his family Dr and Neurologist recommended it. They did an EEG and that was normal. He has had 50 some spells since Nov 30. He gets really stiff and his body gets tight and he has a stare and happens in less than 3-4 min tops. He will fall over if no one holds onto him. They are no seisures. He does not get dizzy. He gets a couple of spells in a week. He has no blood sugar issues. They just cut his BP meds to see if that helps. He is walking with a walker all the time even in the house. He does not ever hit the ground except for a few times. He does not feel them coming on. He does not feel like his legs are weak until he has an episode and then the R side of his body is affected. He has no stairs at home. He has no trouble in or out of bed or up off the floor. Objective Objective: Gait: walks with a rolling walker with flexed trunk and walks with walker out in front of him with decrease stride length. sit to stand: he is able to get up out of the chair without the use of his arms but is very unsteady once he is standing LE MMT: R hip flex 14.6 and L 15.5 R knee ext 23.5 and L knee ext 30.1 R knee flex 13.6 and L 14.8 R hip abd 16.6 and L 16.8 Bridge 1/4 normal ROM FGA 4 CATSIB 43 Pt is a bit impulsive and will step fast to get from one point to another Pt is unable to walk even with the walker with turning his head as he will start to veer. Stairs: up recip with 2 hand rails and down with the L foot with 2 hand rails with CGA Pt is unable to raise toes up in standing. Balance/Special Test Scores Functional Gait Assessment Score: 4 % Disability: 86.6700 CATSIB Score (Max score 120 seconds): 43 Lower Extremity Functional Score: 62 Goals Goal 1:: I HEP Goal Time Frame: 6-8 Weeks Goal 2:: Increase balance (FGA score was 4 on eval) Goal Time Frame: 6-8 Weeks Goal 3:: Increase balance on CATSIB (score was 43) on eval Goal Time Frame: 6-8 Weeks Goal 4:: Be able to walk with wheeled walker with head turns on command without veering or losing his balance with CGA Goal Time Frame: 6-8 Weeks Goal 5:: Be able to sit to stand X 10 with no UE support and maintain standing balance immed upon standing Rehabilitation Potential Rehabilitation Potential: Good Anticipated Interventions Patient/Client Instruction: Educate patient on: Condition and Plan of Care For the Purpose of:: To increase ROM, To improve muscle performance and motor function, To improve ability to perform ADL's, To increase tolerance to activity/condition/position, To improve performance and independence with ADL's, To decrease level of supervision to perform tasks, To improve ability of physical actions for home/community/work/leisure, To improve gait and locomotor functions, To improve endurance, To improve balance and To improve safety with gait Therapeutic Exercise to Include: Strength training, Endurance training, Balance training, Postural training, Gait and locomotor training, Neuromotor development and Active ROM For the Purpose of:: To improve muscle performance and motor function, To improve ability to perform ADL's, To increase tolerance to activity/condition/position, To improve performance and independence with ADL's, To decrease level of supervision to perform tasks, To improve ability of physical actions for home/community/work/leisure, To improve gait and locomotor functions, To improve endurance, To improve balance and To improve safety with gait Functional Training to Include: Gait training For the Purpose of:: To improve gait and locomotor functions and To improve safety with gait Text: Thank you for the opportunity to evaluate your patient. For Medicare and Medicare HMO plans, please review the plan of care and approve it. It will need to be FAXED BACK to us at [phone] for Medicare purposes. For Medicare only, by signing this I certify the plan of care. Please let me know if there are questions or concerns regarding this plan of care. Physician Signature: Date:
--- NOTE | 2023-05-30 15:59 | HP.PTDCSUM ---
Discharge Summary D/C summary: It has been my pleasure to treat SHREE MARCUM referred by Dr. Alex Perrin DO, with the diagnosis of weakness and CVA for a total of 9 visit(s). Discharge Date: 05/30/23 Please see the following information for a summary of their discharge status. Subjective Subjective: Pt is not sure therapy has helped much. His caregiver has noticed that he is able to stand more and more mindful of keeping active. She feels that the falling episodes are not any better. He feels like his legs are stronger. He always uses his walker to walk. He exercises at home. Overall Improvement % Improvement: 50 Objective Objective/Function: CATSIB 93/120 FGA 13 GAIT with head turns with wheeled walker Sit to stand X 10 with no hands with some SOB Improved overall standing and walking balance! All goals met. Goals Goal 1:: I HEP Goal Progress: Goal Met Goal 2:: Increase balance (FGA score was 4 on eval) Goal Progress: Goal Met Goal 3:: Increase balance on CATSIB (score was 43) on eval Goal Progress: Goal Met Goal 4:: Be able to walk with wheeled walker with head turns on command without veering or losing his balance with CGA Goal Progress: Goal Met Goal 5:: Be able to sit to stand X 10 with no UE support and maintain standing balance immed upon standing Goal Progress: Goal Met Plan Plan: DC PT per pt request as he will continue to do exercises at home D/C Information Discharge Comments: DC PT to HEP d/c sentence: If there are questions or concerns regarding this patient's physical therapy, please feel free to call me at [phone]. Thank you for the referral of this patient. Sincerely, Blessing Kennedy, MPT Balance/Gait/Functional tests Balance/Special Test Scores Functional Gait Assessment Score: 13 % Disability: 56.6700 CATSIB Score (Max score 120 seconds): 93 Lower Extremity Functional Score: 39
== END 2023-05-30 19:00 | disposition home or self-care (01) ==
LOC: PT 15:30
PROVIDERS: PCP Student in an Organized Health Care Education/Training Program; Referring Provider Student in an Organized Health Care Education/Training Program; Visit Provider Student in an Organized Health Care Education/Training Program
DX: R53.1 Weakness (principal); I63.9 Cerebral infarction, unspecified
CPT/HCPCS: 97110; 97112; 97116; 97161; 97530

== ENCOUNTER 2023-12-10 07:46 | Inpatient (IN) | payer MEDICARE, SELFPAY ==
[2023-12-10] VITALS (17 sets, daily range): BP systolic 98–167; BP diastolic 65–89; PULSE 68–148; RESP 16–25; TEMP 36.5–38.9; O2SAT 91–96; BMI 24.8; BMI 23.1
--- NOTE | 2023-12-10 08:01 | RAD_ITS ---
INDICATION: fever and cough EXAMINATION/TECHNIQUE: X-RAY - XR Chest 1 View COMPARISON: April 28, 2021 FINDINGS: LINES/DEVICES: None. LUNGS: There is cardiomegaly. No pneumothorax. MEDIASTINUM AND CARDIOVASCULAR STRUCTURES: Cardiac silhouette not enlarged. Central airways and mediastinal contour are unremarkable. BONES AND SOFT TISSUES: Unremarkable. RAD/Chest 1 View (Portable) IMPRESSION: Cardiomegaly. Electronically Signed: Cha Loo MD at 9:35 EST ,
--- NOTE | 2023-12-10 08:03 | EX.ED.VIS.UR ---
HPI HPI - URI History of Present Illness Chief Complaint: Weakness Detail of Chief Complaint: Fever and generalized weakness. Unable to walk. Informant: patient and family Onset/Context/Timing Onset: Today and Yesterday Context: Gradual Onset Timing: Continuous Current Severity: Moderate Maximum Severity: Moderate Worsened by: Not Worsened By Swallowing Relieved by: Tylenol Associated Symptoms Associated Symptoms: Positive for Nonproductive cough; Negative for Nausea, Vomiting, Diarrhea, Hemoptysis or Productive Cough Narrative Narrative: 88-year-old male who lives at home with his girlfriend. He has a history of hypertension, anemia, A-fib and a prior aortic valve TAVR procedure. Start feeling ill on developed a fever as high as 102 yesterday. He just been generally weak to the point where he cannot even ambulate through the home. He had a nonproductive cough. Denies vomiting or diarrhea. No dysuria. No abdominal pain. Girlfriend has similar symptoms at home. Prior similar symptoms: Yes Recent Illness/Hospitalization: No ROS ROS ED ROS Narrative Fever, nonproductive cough and generalized weakness. Review of Systems ROS Unobtainable: Denies due to encephalopathy Constitutional Constitutional ED: Reports fever(s); Denies chills Eyes Eyes: Denies blurry vision ENT ENT ED: Denies ear pain Cardiovascular Cardiovascular: Denies chest pain or palpitations Respiratory/Chest Respiratory/Chest: Reports cough; Denies dyspnea or sputum Gastrointestinal Gastrointestinal: Denies abdominal pain, constipation, diarrhea, melena, nausea or vomiting Genitourinary Genitourinary ED: Denies dysuria, hematuria or urinary frequency Musculoskeletal Musculoskeletal: Denies arthralgias, back pain, myalgias or neck pain Integumentary Denies abscess, Abrasions or rash Neurologic Neurologic: Denies headache(s) Psychiatric Psychiatric: Denies anxiety or depression Endocrine Endocrinology: Denies cold intolerance Hematologic/Lymphatic Hematologic/Lymphatic: Denies lymphadenopathy Allergic/Immunologic Allergic/Immunologic ED: Denies mouth swelling, tongue swelling or urticaria [facility] Medical History (Updated 12/10/23 @ 10:[address] Miquel Ruggiero MD) Abnormal finding on imaging of liver Anemia Anticoagulated Atrial fibrillation Santillan's esophagus with dysplasia BPH (benign prostatic hyperplasia) Cardiology follow-up encounter Essential hypertension Gastric reflux GERD (gastroesophageal reflux disease) GIB (gastrointestinal bleeding) High cholesterol High cholesterol History of atrial fibrillation History of echocardiogram History of GI bleed History of stress test History of transcatheter aortic valve replacement (TAVR) History of transesophageal echocardiography (NITA) History of ulceration Hyperlipidemia Hypertension Myocardial infarction Non-smoker Nonrheumatic aortic (valve) stenosis Orthostatic hypotension Osteoporosis Paroxysmal atrial fibrillation Pneumonia Primary malignant neoplasm of skin of scalp Stroke/cerebrovascular accident Transient cerebral ischemia Uses wheelchair Vertebral artery stenosis Vomiting Weakness Wears dentures Wears glasses Home Medications simvastatin 40 mg tablet 40 mg PO QPM 12/19/17 [History Last Taken Unknown] pantoprazole 40 mg tablet,delayed release 40 mg PO DAILY #30 tabs 12/27/22 [Rx Last Taken Unknown] metoprolol tartrate 25 mg tablet 12.5 mg PO BID 07/11/23 [History Last Taken Unknown] rivaroxaban 20 mg tablet (Xarelto) 20 mg PO DAILY 12/10/23 [History Last Taken Unknown] Allergy/AdvReac Type Severity Reaction Status Date / Time terazosin Allergy lower Verified 07/11/23 11:29 blood pressure Family History Mother Hypertension Father Hypertension CVA (cerebral vascular accident) Sister Hypertension Brother Cancer Heart disease CVA (cerebral vascular accident) Dementia Surgical History (Updated 12/10/23 @ 10:[address] Alisa Duran MD) History of cardiac catheterization History of endarterectomy History of hernia repair S/P TAVR (transcatheter aortic valve replacement) Social History Smoking Status: Never smoker alcohol intake: current details: occasional substance use type: does not use caffeine: No EXAM Physical Exam Narrative Exam Narrative: 88-year-old male vital signs stable afebrile. Initial blood pressure 123/89. Pulse ox 95% on room air. He is currently afebrile he did take Tylenol this morning. HEENT exam mild dry mucous membranes. Otherwise unremarkable. Pupils round reactive light extra motions are intact. No facial droop. Neck nontender. No lymphadenopathy. No meningismus. Lungs clear to auscultation bilaterally. Dry cough. Heart regular rhythm rate about 70 no murmur. Chest wall and ribs nontender. Abdomen soft nontender. No peritoneal signs. Back nontender. Moving all 4 extremities. 5 out of 5 informatics physician strength. Dorsi plantarflexion intact. He can lift either leg or arm off the bed. Neurologically is awake and alert. Answering questions and following commands. No focal motor deficits. Const Vital Signs: 12/10/23 07:47 12/10/23 07:46 12/10/23 09:05 Temperature 97.7 F L Temperature Source Temporal Pulse Rate 73 92 Respiratory Rate 16 21 H Respiratory Effort Normal Non-Labored Respiratory Pattern Normal Blood Pressure 123/89 H Blood Pressure Mean 100 Pulse Ox 95 Oxygen Delivery Method Room Air 12/10/23 09:10 12/10/23 09:20 12/10/23 09:25 Temperature Temperature Source Pulse Rate 91 93 Respiratory Rate 19 H 21 H Respiratory Effort Respiratory Pattern Blood Pressure 146/76 H Blood Pressure Mean 95 Pulse Ox Oxygen Delivery Method 12/10/23 09:30 12/10/23 09:40 12/10/23 09:45 Temperature Temperature Source Pulse Rate 101 H 93 92 Respiratory Rate 16 24 H 23 H Respiratory Effort Respiratory Pattern Blood Pressure 128/76 H 131/87 H Blood Pressure Mean 92 101 Pulse Ox Oxygen Delivery Method 12/10/23 09:50 12/10/23 10:00 12/10/23 10:49 Temperature Temperature Source Pulse Rate 125 H 104 H 148 H Respiratory Rate 24 H 25 H 22 H Respiratory Effort Respiratory Pattern Blood Pressure 157/82 H 167/87 H Blood Pressure Mean 105 113 Pulse Ox Oxygen Delivery Method Positive well nourished and well developed; Negative for obese, cachectic or contractures General Appearance ED: well developed and NAD; Negative for cachectic, contractures, cyanotic, diaphoretic or pallor Nutritional Appearance: Negative for cachectic or obese HEENT Reports dry mucous membranes; Denies moist mucous membranes normocephalic and atraumatic; Negative for scalp tenderness Face and Sinus: Negative for sinus tenderness Mouth ED: Yes dry mucous membranes Mouth: dry mucous membranes Throat: posterior oropharynx normal Eyes PERRL and EOMs intact bilaterally General Eye ED: Negative for pale conjunctiva or scleral icterus Neck no lymphadenopathy, supple, no meningeal signs and no JVD General: Negative for anterior neck swelling or lymphadenopathy Resp normal respiratory effort and clear to auscultation bilaterally Resp Narrative: Dry cough. Effort and Inspection: Negative for retractions Auscultation: Negative for rales, rhonchi or wheezes Cardio S1 normal heart sound, S2 normal heart sound and no murmurs Rate: regular rate; Negative for bradycardia or tachycardic Rhythm: regular rhythm GI non-tender, non-distended and no masses Inspection: Negative for abdominal distention Auscultation: normoactive bowel sounds Palpation: soft; Negative for tender, guarding, hepatomegaly, splenomegaly or mass Back/Spine no CVA tenderness and normal ROM General Back: Negative for CVA tenderness Cervical Spine: Negative for cervical spine tenderness Thoracic Spine / Upper Back: Negative for thoracic spinal tenderness Lumbar Spine / Lower Back: Negative for lumbar spinal tenderness Sacrum: Negative for tenderness Extremity normal to inspection and full ROM General Extremety ED: Negative for cyanosis, tenderness or other findings General Extremity: Negative for cyanosis or other findings Neuro oriented x3 and CN's II-XII intact bilaterally Sensorium / Orientation: alert, oriented to person, oriented to place and oriented to time; Negative for orientation impaired, lethargic, stuporous or other Motor Exam: strength 5/5 throughout Psych mental status grossly normal Appearance: Negative for other Attitude: No agitated Mood & Affect: Negative for depressed, anxious or tearful Skin General Skin Exam: Negative for jaundice or pallor Lesions: no lesions Rashes: no rashes Trauma: Negative for abrasion, laceration or puncture MDM MDM MDM Narrative Medical decision making narrative: 88-year-old male with a fever at home and not feeling well the last several days. Generally weak family says he is unable to walk now at home because of his weakness. Most likely has a viral syndrome of his respiratory tract. Screening labs, IV fluids and viral testing. Currently does not look septic. He does look mildly dehydrated. Repeat exam unchanged. Nurses tried to stand the patient he was unable to stand or ambulate is just too weak. Hospitalist on page for admission. I discussed test results with the family. Patient received a liter of normal saline. History & Record Review Discussion w/independent historian: Patient and Family Additional record(s) reviewed:: Prior inpatient record, Prior outpatient record, Prior ED visit, Prior labs and No prior records Lab Data Attestation: I reviewed the patient's lab results. Lab results narrative: CBC shows elevated white count of 15.7. H&H is 16 and 49. Platelets 142. Electrolytes show a gap of 6. BUN 26 creatinine 1.66. Glucose 177. COVID-positive. Labs: Laboratory Results - last 24 hr 12/10/23 08:24 WBC 15.7 H RBC 5.44 Hgb 16.4 Hct 49.4 MCV 90.8 MCH 30.1 MCHC 33.2 RDW Std Deviation 45.0 H RDW Coeff of [place] 13.6 Plt Count 142 L MPV 10.0 Immature Gran % (Auto) 0.500 Neut % (Auto) 84.3 H Lymph % (Auto) 6.1 L [place] % (Auto) 8.6 Eos % (Auto) 0.1 Baso % (Auto) 0.4 Absolute Neuts (auto) 13.2 H Absolute Lymphs (auto) 0.96 Nucleated RBC % 0 Sodium 141 Potassium 4.0 Chloride 111 H Carbon Dioxide 24.0 Anion Gap 6 BUN 26 H Creatinine 1.66 H Est GFR (MDRD) Af Amer 51 L Est GFR (MDRD) Non-Af 42 L BUN/Creatinine Ratio 15.7 Glucose 177 H Calcium 9.0 Radiography Chest X-Ray - ED: 1 View, Read by ED Physician, Lungs, Mediastinum, Bony Structures, No Acute Disease, Chronic Changes and Cardiomegaly Diagnostic Testing: Clinical Impression(s) from Imaging Studies Chest X-Ray 12/10/23 08:01 IMPRESSION: Cardiomegaly. Electronically Signed: Cha Loo MD at 9:35 EST , Chest x-ray, portable, single view interpreted by myself shows no acute abnormality. Cardiomegaly. Normal lung rondon. Rhythm Strip Rhythm Strip: A-fib Rate: 123 Ectopy: PVC(s) EKG Initial EKG: Attestation: I personally reviewed and interpreted this EKG as follows: Interpretation: Atrial Fibrillation Comments: A-fib with a history of A-fib rate of 123 with PVCs. 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 Discharge Plan Dx/Rx/DC Orders Clinical Impression: COVID, Unable to ambulate, Generalized weakness, Acute dehydration, Chronic a-fib Disposition Disposition: Acute Care [facility]
--- OUTSIDE RECORDS SUMMARY | 2023-12-10 08:13 | XMS RPT_ITS | CCD ---
Author Name Unknown Address [address] [place] [address] Organization [facility] Care Team Providers Care Business Administration Teacher Name Role Phone Jono Vásquez Primary Care Provider [phone] YI CHEEK, ZEE Primary Care Physician ( [phone] None, No PCP Unavailable Unavailable WARREN HUERTA, DR CAST Primary Care Physician [phone] THEO BOSE Attending Unavail able ZEE RENNER Primary Care Unavaila ble WARREN HUERTA, DR CAST Attending Unavailable ROMAR DO, DR CAST Primary Care Unavailable ROMAR DO, DR CAST Attending Unavailable ROMAR DO, DR CAST Primary Care Unavailable ROMAR DO, DR CAST Attending Unavailable ROMAR DO, DR CAST Primary Care Unavailable ROMAR DO, DR CAST Attending Unavailable ROMAR DO, DR CAST Primary Care Unavailable Allergies Allergy Classification Reported Allergen(s) Allergy Type Date of Onset Reaction(s) Facility (4 sources) Terazosin; Translations: [terazosin] Drug Allergy 1 lower blood pressure [facility] [place] Medications Current Medications Medication Drug Class(es) Dates Sig (Normalized) Sig (Original) alendronic acid 35 mg oral tablet (9 sources) Bisphosphonate Start: 09-28-2021 take 1 tablet by mouth every week alendronate 35 mg oral tablet See Instructions, TAKE 1 TABLET EVERY WEEK, # 12 tab(s), 3 Refill(s), Pharmacy: [facility] Mail Delivery, 170.2, cm, 09/18/21 13:42:00 EST, Height, kg, 09/18/21 13:42:00 EST, Dosing Weight Start Date: 09/28/21 Status: Ordered Completed/Discontinued Medications Medication Drug Class(es) Dates Sig (Normalized) Sig (Original) rivaroxaban 20 mg oral tablet (12 sources) Factor Xa Inhibitor Start: 11-25-2020 End: 11-20-2021 Xarelto 20 mg oral tablet Dose : 20 mg = 1 tab(s), Oral, with supper, # 90 tab(s), 3 Refill(s), [facility], 172, cm, 11/25/20 9:22:00 EST, Height, 67.2, kg, 11/25/20 9:22:00 EST, Dosing Weight Start Date: 11/25/20 Stop Date: 11/20/21 Status: Ordered Problems Problem Classification Problem Date Documented Date Episodic/Chronic Acute cerebrovascular disease (3 sources) Cerebrovascular accident 01-16-2023 Chronic Cardiac dysrhythmias (20 sources) Permanent atrial fibrillation ; Translations: [Wide QRS ventricular tachycardia] Onset: 06-08-2020 06-08-2020 Chronic Chronic kidney disease (2 sources) Chronic kidney disease stage 3A 02-27-2023 Chronic Conditions associated with dizziness or vertigo (6 sources) Postural dizziness; Translations: [Postural lightheadedness] Onset: 06-08-2020 06-08-2020 Episodic Diseases of white blood cells (1 source) Leukocytosis 04-19-2023 Chronic Disorders of lipid metabolism (7 sources) Pure hypercholesterolemia; Translations: [Pure hypercholesterolemia, unspecified] Onset: 08-11-2021 Chronic Esophageal disorders (1 source) Barretts esophagus with high grade dysplasia; Translations: [Santillan's esophagus] Chronic Essential hypertension (7 sources) Essential hypertension; Translations: [Essential (primary) hypertension] Onset: 08-11-2021 Chronic Genitourinary symptoms and ill-defined conditions (5 sources) Blood in urine; Translations: [Hematuria, unspecified] Onset: 02-23-2023 02-23-2023 Episodic Heart valve disorders (17 sources) Aortic stenosis, non-rheumatic ; Translations: [Nonrheumatic aortic (valve) stenosis] Onset: 06-08-2020 06-08-2020 Chronic Results Test Name Value Interpretation Reference Range Facil ity Vital Signs Date Time Vital Sign Value Performing Clinician Faci graysony 08-12-2021 12:56-0400 Heart rate 63 /min NORMA VICENTE MD [facility] 08-12-2021 12:23-0400 Heart rate 65 /min NORMA VICENTE MD [facility] 08-12-2021 12:23-0400 Reason For Taking VItal Signs NORMA VICENTE MD [facility] 08-12-2021 11:36-0400 Body temperature 98.24 [degF] NORMA VICENTE MD [facility] 08-12-2021 11:36-0400 Diastolic Blood Pressure NBP 75 1 NORMA VICENTE MD [facility] 08-12-2021 11:36-0400 Heart rate 68 /min NORMA VICENTE MD [facility] 08-12-2021 11:36-0400 Mean blood pressure 90 mm[Hg] NORMA VICENTE MD [facility] 08-12-2021 11:36-0400 Reason For Taking VItal Signs NORMA VICENTE MD [facility] 08-12-2021 11:36-0400 Respiratory rate 18 /min NORMA VICENTE MD [facility] 08-12-2021 11:36-0400 Systolic Blood Pressure NBP 133 1 NORMA VICENTE MD [facility] 08-12-2021 08:42-0400 Diastolic Blood Pressure NBP 76 1 NORMA VICENTE MD [facility] 08-12-2021 08:42-0400 Heart rate 76 /min NORMA VICENTE MD [facility] 08-12-2021 08:42-0400 Mean blood pressure 86 mm[Hg] NORMA VICENTE MD [facility] 08-12-2021 08:42-0400 Reason For Taking VItal Signs NORMA VICENTE MD [facility] 08-12-2021 08:42-0400 Respiratory rate 18 /min NORMA VICENTE MD [facility] 08-12-2021 08:42-0400 Systolic Blood Pressure NBP 119 1 NORMA VICENTE MD [facility] 08-12-2021 07:09-0400 Body temperature 98.42 [degF] NORMA VICENTE MD [facility] 08-12-2021 07:09-0400 Diastolic Blood Pressure NBP 83 1 NORMA VICENTE MD [facility] 08-12-2021 07:09-0400 Mean blood pressure 95 mm[Hg] NORMA VICENTE MD [facility] 08-12-2021 07:09-0400 Systolic Blood Pressure NBP 127 1 NORMA VICENTE MD [facility] 08-12-2021 03:59-0400 Body temperature 97.7 [degF] NORMA VICENTE MD [address] [place] [address] 08-12-2021 03:59-0400 Respiratory rate 18 /min NORMA VICENTE MD [facility] 08-11-2021 18:24-0400 Heart rate 115 /min NORMA VICENTE MD [facility] 08-11-2021 08:15-0400 Body height 170.2 cm NORMA VICENTE MD [facility] 08-11-2021 08:15-0400 Body weight 67.6 kg NORMA VICENTE MD [facility] 08-11-2021 08:15-0400 Body weight 23.34 kg/m2 NORMA VICENTE MD [facility] 08-11-2021 08:15-0400 diastolic 92 mm[Hg] NORMA VICENTE MD [facility] 08-11-2021 08:15-0400 Heart rate 78 /min NORMA VICENTE MD [facility] 08-11-2021 08:15-0400 systolic 161 mm[Hg] NORMA VICENTE MD [facility] Encounters Encounter Date Encounter Type Care Provider Facility Start: 04-20-2023 End: 04-21-[address] SEGUN KELLEY DO Facility:B Start: 04-20-2023 End: 04-20-[address] SEGUN KELLEY DO [facility] Start: 03-16-2023 End: 03-17-[address] SEGUN KELLEY DO Facility:[facility] Start: 02-23-2023 End: 02-28-[address] SEGUN KELLEY DO Facility:[facility] Start: 02-23-2023 End: 02-27-[address] SEGUN KELLEY DO [facility] Start: 02-23-2023 End: 02-23-[address] SEGUN KELLEY DO [facility] Start: 07-01-2022 End: 07-02-2022 ambulatory THEO MANSFIELD APRN-MASTIC FLOOR LAYER Facility:B Start: 07-01-2022 End: 07-01-2022 Patient encounter procedure THEO MANSFIELD APRN-MASTIC FLOOR LAYER [facility] Start: 02-03-2022 Phys/qhp telephone evaluation 21-30 min No PCP None AI-Yhkcbajpwjggnxdm-Oto [facility] Work Phone: Start: 09-11-2021 End: 09-11-2021 Patient encounter procedure THEO MANSFIELD APRN-MASTIC FLOOR L[employer]ER [facility] Start: 08-11-2021 End: 08-12-2021 Evaluation and management of inpatient NORMA VICENTE MD [facility] Start: 08-13-2020 End: 08-13-2020 Telephone encounter Rommel (Accounting Office Manager Photographic Intelligence Officer) Juan A Work Phone: [place] PROVID[facility] ADULT Procedures Date Procedure Procedure Detail Performing Clinician Start: 08-11-2021 Transcatheter aortic valve replacement NORMA VICENTE MD Start: 07-04-2020 Echo tthrc r-t 2d w/ wom-mode compl spec&colr d Rommel (Accounting Office Manager Photographic Intelligence Officer) Juan A Work Phone: Start: 07-04-2020 LVEF ECHO Rommel (Apr n Photographic Intelligence Officer) Juan A Work Phone: Start: 07-04-2020 Xtrnl pt activated e cg record monitor 30 days Rommel (Accounting Office Manager Photographic Intelligence Officer) Juan A Work Phone: Start: 06-17-2020 CARDIAC [facility] Start: 02-01-2018 Echocardiography NORMA VICENTE MD Start: 03-07-2017 Left inguinal hernia (disorder) NORMA VICENTE MD Start: 02-13-2004 Colonoscopy NORMA KAPLAN MD Plan of Treatment Date Care Activity Detail Author Start: 07-01-2020 Influenza vaccination INFLUENZA (#1) [facility] Start: 2002 ADVANCE DIRECTIVE DISCUSSION ADVANCE DIRECTIVE DISCUSSION [facility] Start: 2002 PNEUMOVAX AGE 65 AND OVER WITH 5YR LOOKBACK (#1) PNEUMOVAX AGE 65 AND OVER WITH 5YR LOOKBACK (#1) [facility] Start: 1987 SHINGRIX VACCINE (1 of 2) CHAPMAN GRIX VACCINE (1 of 2) [facility] Start: 1982 DIABETES SCREEN DIABETES SCREEN [facility] Start: 1956 Urine microalbumin profile DTAP,TDAP ,TD (1 - Tdap) [facility] Immunizations Immunization Date Immunization Notes Care Provider Fa [facility] 01-12-2023 COVID-19, mRNA, LNP- S, bivalent booster, PF, 30 mcg/0.3 mL dose; Translations: [[employer] COVID-19 (12y+) Bivalent Booster Vaccine PF] DR SEGUN KELLEY DO [facility] Payers Date Payer Category Payer Private Health Insurance [id number] 2017 Medicare HU[employer]NA MEDICARE HU[employer]NA MEDICARE PPO [id number] 2017-Present PPO [id number] 1935 Unknown [id number] 1935 Unknown [id number] 1935 Unknown [id number] 1935 Unknown [id number] 1935 Unknown [id number] Unknown [employer] GOLD CHOICE Social History Date Type Detail Facility Start: 05-11-2019 End: 06-09-2020 Tobacco smoking status DEIS Never smoker [facility] in Clinical Notes 07-11-2021 to 09-30-2021 Note Date & Type Note Facility 09-30-2021 History of Presen t illness Narrative 86 year old who is on Xarelto for a. fib. Had a GIbleed in September from MW tear. 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 He had a followup EGD off Xarelto for a couple of days. It showed atypia, Ki-67, p53 positive . On endoscopy there seems to be a small area of LA Grade A esophagitis.Patient denies dysphagia, wt loss, GERD symptoms. He does not smoke or have family history. DO-Svnwchprzdmgkiup-Pnhbx ll 6 [facility] Work Phone: 08-12-2021 Hospital Discharg e instructions Patient Education 08/12/2021 12:52:12 3- TRANSCATHETER AORTIC VALVE REPLACEMENT (TAVR) Discharge Instructions 11/14/2018(CUSTOM) TRANSCATHETER AORTIC VALVE REPLACEMENT (TAVR) Discharge Instructions DIET INSTRUCTIONS Resume your previous diet as tolerated Drink plenty of fluids for the next 48 hours to help your kidneys flush the dye out of your system ACTIVITIES May go up and down stairs CAREFULLY AFTER [address] car FOR 5 DAYS AFTER PROCEDURE No heavy lifting GREATER THAN 10 POUNDS or pushing or straining FOR 5 DAYS Someone must stay with you at home after the procedure FOR 3 DAYS BATHING/SHOWERING May tub bathe in 1 week May shower tomorrow, but cover groin incisions with plastic for 3 days after procedure WOUND CARE You will go home with a Band-Aid over your catheter insertion site. Keep a Band-Aid on for the next 24 hours and then leave open to air. Some degree of bruising and tenderness is normal around the catheter insertion site. It will take a while for any bruising to completely resolve. Keep your site clean and dry. You need to report the following to your ball assembler: Any draining or oozing from the site Any swelling at the site Any increased pain or tenderness at the site Any numbness in your leg where the procedure was done Any signs of infection IMPORTANT! CALL 911 FOR ANY BLEEDING OR SWELLING AT THE PROCEDURE SITE If there is any large amount of bleeding, you or someone else need to apply direct pressure to the site (just like the nurse did in the heart lab after your procedure). It is very important that you hold constant pressure. Do not release the pressure to check if the bleeding has stopped. You then need to be transported to the nearest emergency room. WATCH FOR SIGNS OF INFECTION (Usually appears 36-48 hours after surgery) A temperature above 100.5 Redness or swelling Increased pain Foul odor or drainage If you have any questions, please call your doctor at the number listed on your follow up instructions. CONTACT YOUR CARDIOLOGY OFFICE FOR A PRESCRIPTION FOR ANTIBIOTICS PRIOR TO ANY DENTAL PROCEDURE! Follow all instructions given to you by your doctor Follow Up Care 07/29/2021 09:22:01 With:NORMA VICENTE MD Address: [address] [place] [address] [address] [facility] [address] [facility] [place] [address]- [phone] When:09/18/2021 13:30:00 Comments:30-day TAVR follow up; echo and labwork prior to office visit With:Echocardiogram Address: When:09/11/2021 13:00:00 Comments:This is scheduled at [facility]. Please have lab work done around the same time, prior to your office visit. With:ZEE RICHMOND APRN-[facility] Address: [address] [facility] [place] [address]- When:1-2 days Comments:Please call the office to set up a follow up appointment [facility] 1. Severe aortic stenosis Plan for TAVR via right femoral approach. 26 mm fitch + 2 cc. Risk and benefits of procedure were discussed with patient which include but are not limited to heart attack, stroke, , renal failure, vascular injury requiring surgery or stenting, bleeding requiring transfusion, need for permanent pacemaker, pericardial effusion requiring drainage, annular rupture or aortic rupture requiring emergent surgery. 2. Paroxysmal atrial fibrillation 3. Hypertension 4. High cholesterol 5. History of TIA (transient ischemic attack) 6. BPH (benign prostatic hypertrophy) Orders: metoprolol, Start: 08/11/21 18:08:00 EDT, Dose = 25 mg, = 1 tab(s), Oral, BID, 0 APTT Panel Basic Metabolic Panel Complete Blood Count Future Appointments Appointment Date:08/13/2021 09:50:00 AM Scheduled Provider:ZEE RICHMOND Location:[facility] Appointment Type:PC OV Hospital Follow-Up Appointment Date:09/11/2021 01:00:00 PM Scheduled Provider: Location:[facility] Appointment Type:CV Procedure - AOH Echo Appointment Date:09/18/2021 01:30:00 PM Scheduled Provider: Location:[facility] Appointment Type:CV OV Structural Heart Future Scheduled Tests Laboratory* Basic Metabolic Panel 08/11/21 * Complete Blood Count 08/11/21 [facility] 09-11-2021 NoteHNO ID: [id number] Author: Kip Enamorado APRN.CNP Service: ? Author Type: Nurse Practitioner Type: Progress Notes Filed: 07/11/2021 3:38 PM Note Text: Visit Date: July 11, 2021 Patient Name: Mr.Carrol Marcum Date of : 1935 MRN/E #: [id number] Chief Complaint Patient presents with: Pain: teeth pulled am, continuous bleeding History of present illness Marcie Marcum is a 86 year old male. Presents with complaints of bleeding in 2 teeth that were recently pulled. He is on Xarelto for Afib and recently had a dental procedure that required him to have tooth extractions. The bleeding was controlled following the procedure but his spouse accidentally gave him his Xarelto which restarted the bleeding. Denies having any dizziness, headache, or fatigue. He has attempted applying pressure with tissue paper to control the bleeding which has been unsuccessful. PAIN EVALUATION No data found in the last 1 encounters. ALLERGIES No Known Allergies PAST MEDICAL HISTORY Diagnosis Date - Aortic valve stenosis - Atrial fibrillation (HCC) Permanent - BPH (benign prostatic hyperplasia) - Essential hypertension, benign - Lightheadedness - Other and unspecified hyperlipidemia - Palpitations - Primary malignant neoplasm of skin of scalp - Transient cerebral ischemia PAST SURGICAL HISTORY Procedure Laterality Date - INSERT CATH,ART,PERCUT,SHORTTERM 03/29/06 RIGHT MERYL - THROMBOENDARTECTMY NECK,NECK INCIS 03/29/06 LEFT CEA Social History Tobacco Use - Smoking status: Never Smoker - Smokeless tobacco: Never Used Vaping Use - Vaping Use: Never used Substance Use Topics - Alcohol use: Not Currently - Drug use: No No family history on file. Review of Systems Constitutional: Negative for chills, fever and malaise/fatigue. HENT: Negative for congestion and sore throat. Bleeding in mouth Respiratory: Negative for cough, shortness of breath and wheezing. Cardiovascular: Negative for chest pain and palpitations. Gastrointestinal: Negative for abdominal pain, diarrhea, nausea and vomiting. Musculoskeletal: Negative for myalgias. Skin: Negative for itching and rash. Neurological: Negative for dizziness, tingling and headaches. Physical Exam Vitals and nursing note reviewed. Constitutional: Appearance: Normal appearance. HENT: Mouth/Throat: Mouth: Mucous membranes are moist. Eyes: Extraocular Movements: Extraocular movements intact. Pupils: Pupils are equal, round, and reactive to light. Pulmonary: Effort: Pulmonary effort is normal. Skin: General: Skin is warm and dry. Neurological: Mental Status: He is alert and oriented to person, place, and time. BP 124/78 Pulse 76 Temp 97.5 Resp 18 Wt 149 lb (67.6kg) SpO2 97% Assessment/Plan (K13.79) Bleeding in mouth (primary encounter diagnosis) -Surgicell applied in office, bleeding controlled -discussed prevention methods -discussed red flags -follow up with PCP within 1 week Kip Enamorado APRN.CNP Discussed above plan with patient. Pt agreeable with [facility] Future Appointments Appointment Date:09/18/2021 01:30:00 PM Scheduled Provider: Location:[facility] Appointment Type:CV OV Structural Heart [facility] Evaluation + Plan note Future Appointments Appointment Date:07/22/2022 01:00:00 PM Scheduled Provider: Location:[facility] Appointment Type:CV OV Structural Heart [facility] Evaluation + Plan note Future Appointments Appointment Date:04/19/2023 04:00:00 PM Scheduled Provider:SEGUN KELLEY DO Location:[facility] Appointment Type:PC OV Future Scheduled Tests Laboratory* Urine Culture 02/23/23 Radiology* MRI Brain w/ + w/o Contrast 01/12/23 [facility] Evaluation + Plan note Future Appointments Appointment Date:04/19/2023 04:00:00 PM Scheduled Provider:SEGUN KELLEY DO Location:[facility] Appointment Type:PC OV Future Scheduled Tests Laboratory* Phosphorus Level 04/10/23 * Urine Culture 02/23/23 * Complete Blood Count 04/10/23 * PTH, Intact 04/10/23 Radiology* US Abdomen Limited 02/27/23 * US Renal 02/27/23 [facility] Evaluation + Plan note Future Appointments Appointment Date:07/12/2023 03:00:00 PM Scheduled Provider:SEGUN KELLEY DO Location:[facility] Appointment Type:PC OV Future Scheduled Tests Laboratory* Protein Electrophoresis Urine 04/19/23 [facility] Hospital course Narrative No data available for this section [facility] Hospital Discharge instructions No data available for this section [facility] Progress note No data available for this section [facility] Reason for Referral Status Reason Specialty Diagnoses / Procedures Referred By Contact Referred To Contact Waiting for Online Response Auto-Generate d Referral Patient Cleared - Admin/Chairma n/Director advise to proceed [facility] Diagnoses Permanent atrial fibrillation (HCC) Wide-complex tachycardia (HCC) Procedures ECHO TTE W/DOPPLER, COMPLETE Rommel Velazco (Accounting Office Manager Photographic Intelligence Officer), SERVICE CENTER TECHNICIAN [address] [place] [address] [facility] [place] [address] [place] [address] Assessments Diagnosis Permanent atrial fibrillation (HCC) Atrial fibrillation Wide-complex tachycardia (HCC) Paroxysmal ventricular tachycardia Summary Purpose Family History No Family History Records FoundNo Family History Records FoundNo Family History Records FoundNo Family History Records FoundNo Family History Records Found Advance Directives No Advanced Directives Records FoundNo Advanced Directives Records FoundNo Advanced Directives Records FoundNo Advanced Directives Records FoundNo Advanced Directives Records Found Chief Complaint * A telephone visit (audio only) between the patient (at the originating site) and the provider (at the distant site) was utilized to provide this telehealth service. * BE with dysplasia Additional Source Comments Source Comments (unrecognize d section and content) In the event this informatio n is protected by the Federal Confidentiality of Alcohol and Drug Abuse Patient Records regulations: The Federal rules restrict any use of the information to criminally investigate or prosecute any alcohol or drug abuse patient.[facility] the event this information is protected by the Federal Confidentiality of Alcohol and Drug Abuse Patient Records regulations: The Federal rules restrict any use of the information to criminally investigate or prosecute any alcohol or drug abuse patient.[facility] the event this information is protected by the Federal Confidentiality of Alcohol and Drug Abuse Patient Records regulations: The Federal rules restrict any use of the information to criminally investigate or prosecute any alcohol or drug abuse patient.[facility] the event this information is protected by the Federal Confidentiality of Alcohol and Drug Abuse Patient Records regulations: The Federal rules restrict any use of the information to criminally investigate or prosecute any alcohol or drug abuse patient.[facility] Hospital[facility] the event this information is protected by the Federal Confidentiality of Alcohol and Drug Abuse Patient Records regulations: The Federal rules restrict any use of the information to criminally investigate or prosecute any alcohol or drug abuse patient.[facility] Hospital[facility] the event this information is protected by the Federal Confidentiality of Alcohol and Drug Abuse Patient Records regulations: The Federal rules restrict any use of the information to criminally investigate or prosecute any alcohol or drug abuse patient.[facility] Reason for Visit (unrecogniz ed section and content) Reason Onset Date Comments Results 07/08/2020 Reason Onset Date Comments Results 08/13/2020 Telephone Encounter - Paulette Reyes (Miladis) - 07/08/2020 8:41 AM EDTTelephone Encounter - Gina Wallace - 07/08/2020 8:32 AM EDTTelephone Encounter - Julia Wallaceica - 07/08/2020 8:32 AM EDT Miscellaneous Notes (unrecog nized section and content) Patient returned phone call. Results and recommendations given per Rommel Velazco CNP instructions. Patient verbalized understanding. Paulette Ruth) Eric I called and left a message for to call [facility] for test results. Gina Wallace LPN ----- Message from Rommel Romero) EDMUND Velazco sent at 07/06/2020 9:27 AM EDT ----- Please notify patient (or his girlfriend or daughter) that Echo done 07/04/20 is reported as very similar to Echo October 2018 with normal EF, moderate to severe aortic stenosis (it was moderate before) and dizziness, falls, etc. Are likely not related to Echo findings. Event monitor was applied 07/04/20, so we'll see if that shows anything significant. Thanks. Rommel Velazco APRN.CNS documented in this encounter I spoke to patient at this time and gave him results of event monitor which was done from 07/04/20 through 08/02/20. It showed atrial fibrillation which we know he has chronic atrial fibrillation, average heart rate 90 bpm, no significant pauses. I informed him that the findings on the event monitor do not correlate with the episodes he described to me at office visit in May. He states he did not have any of those episodes while he had the monitor on and he's had no further of those episodes since he saw me in the office in May. Rommel Velazco APRN.SERVICE CENTER TECHNICIAN documented in this encounter (unrecognized sect ion and content) No Status Records FoundNo Status Records FoundNo Status Records FoundNo Status Records FoundNo Status Records Found INFORMATION SOURCE (unrecogn ized section and content) DATE CREATED AUTHOR AUTHOR'S ORGANIZ ATION 08/14/2020 [facility] DATE CREATED AUTHOR AUTHOR'S ORGANIZ ATION 11/26/2021 [facility] DATE CREATED AUTHOR AUTHOR'S ORGANIZ ATION 02/06/2022 [employer] DATE CREATED AUTHOR AUTHOR'S ORGANIZ ATION 04/21/2023 [facility] ([place]) Care Team (unrecognized sect ion and content) Care Team Personnel Name: JAKUB CONNORS MD Position: P4 Physician - Cardiothoracic Surgery Address: Address: [facility] [address] [place] [address] [facility] [address] [facility] [place] [address]- Name: JEFFREY MENDOZA MD Address: Address: [address] [place] [address]- Name: NORMA VICENTE MD Position: P4 Physician - Cardiology Address: Address: [address] [place] [address] [address] [facility] [place] [address]- Name: [facility] Position: P4 Advanced Practice Nurse Member Role: Primary Care Physician Address: Address: [address] [place] [address]- [place] Care Team Related Persons Name: ADITI REED Name: ADITI REED Name: KIKI REED Name: THU REED Patient Care team informatio n (unrecognized section and content) Care Team Personnel Name: JAKUB CONNORS MD Position: P4 Physician - Cardiothoracic Surgery Member Role: Cardiothoracic Surgeon Address: Address: [address] [place], [place] [address] [facility] [address] [facility] Cardiothoracic Surgery [address] Name: JEFFREY MENDOZA MD Member Role: Day Porter Address: Address: [address] [place] [address]- Name: NORMA VICENTE MD Position: P4 Physician - Cardiology Member Role: Day Porter Address: Address: [address] [place] [address] [address] [place] [address]- Name: SEGUN KELLEY DO Position: P4 Physician - Primary Care Member Role: Primary Care Physician Address: Address: [address] [place] [address]- Care Team Related Persons Name: ADITI REED Name: ADITI REED Name: KIKI REED Name: THU REED Care Team Personnel Name: JAKUB CONNORS MD Position: P4 Physician - Cardiothoracic Surgery Member Role: Cardiothoracic Surgeon Address: Address: [address] [place], [place] [address] [facility] [address] [facility] [place] [address]- Name: JEFFREY MENDOZA MD Member Role: Day Porter Address: Address: [address] [place] [address]- Name: NORMA VICENTE MD Position: P4 Physician - Cardiology Member Role: Day Porter Address: Address: [address] [place] [address] [address] [place] [address]- Name: SEGUN KELLEY DO Position: P4 Physician - Primary Care Member Role: Primary Care Physician Address: Address: [address] [place] [address]- Care Team Related Persons Name: ADITI REED Name: ADITI REED Name: KIKI REED Name: THU REED Care Team Personnel Name: JAKUB CONNORS MD Position: P4 Physician - Cardiothoracic Surgery Member Role: Cardiothoracic Surgeon Address: Address: [address] [place] [address] [address] [facility] [place] [address]- [place] Name: JEFFREY MENDOZA MD Member Role: Day Porter Address: Address: [facility] [place] [address]- Name: NORMA VICENTE MD Position: P4 Physician - Cardiology Member Role: Day Porter Address: Address: [address] [place] [address] [address] [place] [address]- Name: FRANKSEGUN NELSON Position: P4 Physician - Primary Care Member Role: Primary Care Physician Address: Address: [address] [facility] [place] [address]- Care Team Related Persons Name: RUTHIE REEDNA Name: ERINNKALEBGRACIE ADITI Name: KIKI REED Name: THU REED FOR RECORDS PERTAINING TO PATIENTS WHO ARE OR HAVE BEEN ENROLLED IN A CHEMICAL DEPENDENCY/SUBSTANCEABUSE PROGRAM, SOME INFORMATION MAY BE OMITTED. This clinical summary was aggregated from multiple sources. Caution should be exercised in using it in the provision of clinical care. This summary normalizes information from multiple sources, and as a consequence, information in this document may materially change the coding, format and clinical context of patient data. In addition, data may be omitted in some cases. CLINICAL DECISIONS SHOULD BE BASED ON THE PRIMARY CLINICAL RECORDS. [facility] [employer] provides no warranty or guarantee of the accuracy or completeness of information in this document.
[2023-12-10] MEDS: 0.9% Normal Saline (1000mL) 1,000 ML 1000 ML IV (08:22)
[2023-12-10 08:35] LABS: Absolute Lymphocyte Count 0.96 X10^3/uL (0.83-4.51); Absolute Neutrophil Count 13.2 X10^3/uL (2.0-7.7); Basophil# 0.07 X10^3/uL; Basophil% 0.4 % (0-1); Eosinophil# 0.01 X10^3/uL; Eosinophils% 0.1 % (0-5); Hematocrit 49.4 % (40-54); Hemoglobin 16.4 g/dL (13.0-16.5); Lymphocyte # 0.96 X10^3/ul (0.83-4.51); Lymphocyte % 6.1 % (19-41); Mean Corp Hgb Conc 33.2 g/dL (32-36); Mean Corpuscular Hgb 30.1 pg (27.0-32.0); Mean Corpuscular Volume 90.8 fL (80-94); Monocyte# 1.34 X10^3/uL; Monocyte% 8.6 % (0-10); NRBC Flagged by Analyzer 0 % (0-5); Neutrophil # 13.19 X10^3/uL (2.7-7.7); Neutrophil % 84.3 % (47-70); Platelet Count 142 K/mm3 (150-450); RBC Distribution Width CV 13.6 % (11.6-14.6); Red Blood Count 5.44 M/mm3 (4.6-6.2); White Blood Count 15.7 K/mm3 (4.4-11.0)
[2023-12-10 08:47] LABS: Anion Gap 6 (5-15); BUN 26 mg/dL (7-18); BUN/Creat Ratio 15.7 RATIO (10-20); Chloride 111 mmol/L (98-107); Creatinine, Serum 1.66 mg/dL (0.70-1.30); EST Glomerular Filtration Rate 42 mL/min (>60); Est Glom Filt Rate - Afr Amer 51 mL/min (>60); Glucose 177 mg/dL (74-106); Sodium Level 141 mmol/L (136-145)
[2023-12-10 10:47] LABS: Bacteria 0 SEEN /hpf (None Seen); Squamous Epithelial Cells - UA 0 SEEN /hpf (0-5); White Blood Cells 0 SEEN /hpf (0-5)
--- NOTE | 2023-12-10 10:49 | ED.RN ---
ok to give pt home dose of metoprolol per dr odom for increased heart rate and bp.
--- NOTE | 2023-12-10 10:49 | PCM.HP.STD ---
HPI - General General Date of Admission: 12/10/23 Date of Service: 12/10/23 Chief Complaint: Fever, fatigue, weakness, debility. HPI Narrative The patient is an 88 y/o M w/ PMHx: CKD stage III unclear subtype, HTN, HLD, PAF, BPH, Chronic anemia, GERD w/ Hx GI bleed/Santillan;s esophagus, Valvular Heart Disease s/p TAVR, Orthostatic hypotension, Hx CVA w/ vertebral artery stenosis, Carotid disease s/p CEA who presents to the [facility] ED on 12/10/2023 with history of fever, generalized weakness and malaise starting over the last 24 hours with a nonproductive cough, notes to have nausea and dry heaving in the ED but had not prior, myalgia, congestion but no diarrhea, living at home with his girlfriend, initially noted started to feel ill on with a fever up to 102 with difficulty in ambulating secondary to his weakness prompting eventual ED evaluation. Per report his girlfriend does have also similar symptoms. He does report being vaccinated and having had a booster but unsure series or amount. Workup in the ED included T97.7, heart rate 73 although did vacillate up to 125 in the ED, most recently heart rate 104, BP initially 123/89 with most recent repeat 157/82, respiratory rate 16, 95% on room air, CBC with WBC 15.7, hemoglobin 16.4, platelets 142 with left shift, BMP with chloride 111, BUN/creatinine 26/1.66, GFR 42, glucose 177, chest x-ray with cardiomegaly with no acute cardiopulmonary findings otherwise, rapid SARS COVID positive, negative influenza and RSV PCR. In the ED patient ministered IV fluids as well as IV cardizem 20 mg x 1 and Zofran as once patient had onset dry heaves he became tachycardic with RVR. [facility] Medical History Abnormal finding on imaging of liver Anemia Atrial fibrillation Santillan's esophagus with dysplasia BPH (benign prostatic hyperplasia) CKD (chronic kidney disease), stage III Essential hypertension GERD (gastroesophageal reflux disease) High cholesterol History of GI bleed History of transcatheter aortic valve replacement (TAVR) Hyperlipidemia Hypertension Myocardial infarction Non-smoker Nonrheumatic aortic (valve) stenosis Orthostatic hypotension Osteoporosis Paroxysmal atrial fibrillation Primary malignant neoplasm of skin of scalp Stroke/cerebrovascular accident Transient cerebral ischemia Uses wheelchair Vertebral artery stenosis Vomiting Weakness Wears dentures Wears glasses Home Medications simvastatin 40 mg tablet 40 mg PO QPM 12/19/17 [History Last Taken Unknown] pantoprazole 40 mg tablet,delayed release 40 mg PO DAILY #30 tabs 12/27/22 [Rx Last Taken Unknown] metoprolol tartrate 25 mg tablet 12.5 mg PO BID 07/11/23 [History Last Taken Unknown] rivaroxaban 20 mg tablet (Xarelto) 20 mg PO DAILY 12/10/23 [History Last Taken Unknown] Allergy/AdvReac Type Severity Reaction Status Date / Time terazosin Allergy lower Verified 07/11/23 11:29 blood pressure Family History Mother Hypertension Father Hypertension CVA (cerebral vascular accident) Sister Hypertension Brother Cancer Heart disease CVA (cerebral vascular accident) Dementia Surgical History History of cardiac catheterization History of endarterectomy History of hernia repair S/P TAVR (transcatheter aortic valve replacement) Social History (Updated 12/10/23 @ 12:[address] Alisa Duran MD) household members: significant other Smoking Status: Never smoker alcohol intake: current details: occasional substance use type: does not use caffeine: No ROS ROS Narrative Admission Review of Systems: CONSTITUTIONAL: No weight loss, + fever, chills, weakness or fatigue. HEENT: + Headache/congestion. Eyes: No visual loss, blurred vision, double vision or yellow sclerae. Ears, Nose, Throat: No hearing loss, sneezing. SKIN: No rash or itching, lesions, wounds. CARDIOVASCULAR: No chest pain, chest pressure or chest discomfort, palpitations, edema, orthopnea, syncopal events. RESPIRATORY: + shortness of breath, cough, No marked sputum, wheezing, hemoptysis. GASTROINTESTINAL: + anorexia, nausea, vomiting. No diarrhea, abdominal pain, melena, BRBPR. GENITOURINARY: No dysuria, frequency, urgency or retention. NEUROLOGICAL: + headache, No dizziness, syncope, paralysis, ataxia, numbness or tingling in the extremities, focal weakness, change in bowel or bladder control, seizure. MUSCULOSKELETAL: + muscle, back pain, joint pain or stiffness. HEMATOLOGIC: No anemia. Easy bleeding and bruising. LYMPHATICS: No enlarged nodes. No history of splenectomy. PSYCHIATRIC: No history of depression or anxiety. ENDOCRINOLOGIC: + reports of sweating, cold or heat intolerance. No polyuria or polydipsia. ALLERGIES: No history of asthma, hives, eczema or rhinitis. Vital Signs Vital Signs Vital Signs: 12/10/23 07:47 12/10/23 07:46 12/10/23 09:05 Temperature 97.7 F L Temperature Source Temporal Pulse Rate 73 92 Respiratory Rate 16 21 H Respiratory Effort Normal Non-Labored Respiratory Pattern Normal Blood Pressure 123/89 H Blood Pressure Mean 100 Pulse Ox 95 Oxygen Delivery Method Room Air 12/10/23 09:10 12/10/23 09:20 12/10/23 09:25 Temperature Temperature Source Pulse Rate 91 93 Respiratory Rate 19 H 21 H Respiratory Effort Respiratory Pattern Blood Pressure 146/76 H Blood Pressure Mean 95 Pulse Ox Oxygen Delivery Method 12/10/23 09:30 12/10/23 09:40 12/10/23 09:45 Temperature Temperature Source Pulse Rate 101 H 93 92 Respiratory Rate 16 24 H 23 H Respiratory Effort Respiratory Pattern Blood Pressure 128/76 H 131/87 H Blood Pressure Mean 92 101 Pulse Ox Oxygen Delivery Method 12/10/23 09:50 12/10/23 10:00 12/10/23 10:49 Temperature Temperature Source Pulse Rate 125 H 104 H 148 H Respiratory Rate 24 H 25 H 22 H Respiratory Effort Respiratory Pattern Blood Pressure 157/82 H 167/87 H Blood Pressure Mean 105 113 Pulse Ox Oxygen Delivery Method Physical Exam Narrative Physical Examination: General: Awake, alert, oriented x 3 and cooperative, seated upright in the ED bed, fatigued and ill-appearing, mildly increased respiratory rate, episode onset in the ED with dry heaves with notable onset RVR. Skin: Normal color, normal turgor, no icterus, no cyanosis except occasional staged ecchymoses. HEENT: AT/NC, EOMI, PERRLA, moderately dry MM, no carotid bruits or JVD noted. Lungs: Diffusely diminished, greater bases, mildly increased respiratory rate, no evidence of any distress, no rales, ronchi or wheezing. Heart: Tachycardic, regular; no gallop, rub audible. Abdomen: Soft, no obvious TTP, ND, mildly hyperactive bowel sounds, unable to discern any HSM but difficult is having dry heaves intermittently. Extremities: No cyanosis, clubbing, or edema. Neurological: Patient awake, alert, oriented as noted, cognitive function intact; pupils equally reactive to light and accommodation, cranial nerves grossly normal, moving all 4 extremities, no focal deficits, strength severely global decrease secondary to acute presentation. Psychiatric: Affect appears fatigued, ill-appearing, no acute evidence of depressive or anxiety feelings. Results Lab / Micro Data 12/10/23 08:24 12/10/23 08:24 Labs: Laboratory Results - last 24 hr 12/10/23 08:24: WBC 15.7 H, RBC 5.44, Hgb 16.4, Hct 49.4, MCV 90.8, MCH 30.1, MCHC 33.2, RDW Std Deviation 45.0 H, RDW Coeff of Lawrence 13.6, Plt Count 142 L, MPV 10.0, Immature Gran % (Auto) 0.500, Neut % (Auto) 84.3 H, Lymph % (Auto) 6.1 L, Wood % (Auto) 8.6, Eos % (Auto) 0.1, Baso % (Auto) 0.4, Absolute Neuts (auto) 13.2 H, Absolute Lymphs (auto) 0.96, Nucleated RBC % 0, Sodium 141, Potassium 4.0, Chloride 111 H, Carbon Dioxide 24.0, Anion Gap 6, BUN 26 H, Creatinine 1.66 H, Est GFR (MDRD) Af Amer 51 L, Est GFR (MDRD) Non-Af 42 L, BUN/Creatinine Ratio 15.7, Glucose 177 H, Calcium 9.0 Micro: Microbiology 12/10/23 08:24 Mucosa - Nose SARS-CoV-2, Influenza & RSV (PCR) - Final SARS-CoV-2 (COVID 19) Imaging Radiology Impression Chest X-Ray 12/10/23 08:01 IMPRESSION: Cardiomegaly. Electronically Signed: Cha Loo MD at 9:35 EST , Assessment & Plan Assessment/Plan (1) COVID: PLAN: Plan The patient is an 88 y/o M w/ PMHx: CKD stage III unclear subtype, HTN, HLD, PAF, BPH, Chronic anemia, GERD w/ Hx GI bleed/Santillan;s esophagus, Valvular Heart Disease s/p TAVR, Orthostatic hypotension, Hx CVA w/ vertebral artery stenosis, Carotid disease s/p CEA who presents to the [facility] ED on 12/10/2023 with history of fever, generalized weakness and malaise starting over the last 24 hours with a nonproductive cough but no specific nausea, emesis, diarrhea living at home with his girlfriend initially noted started to feel ill on with a fever up to 102 with difficulty in ambulating secondary to his weakness prompting eventual ED evaluation. 1. Acute Debility, Adult FTT secondary to Acute Viral Syndrome, COVID-19: Will admit to the PCU given notable issues with PAF w/ RVR as noted secondary to dry heaving and not having taken AM medications with de-escalation to MS tele as able, maintain on COVID precautions, will maintain on oxygen with wean as tolerated to room air, PRN albuterol, HOB, IS parameters w/ pending sputum cultures, respiratory viral panel and urine antigens, will obtain D-dimer, procalcitonin, CRP, CPK, Ferritin, LDH, trop and BNP per COVID order set in addition to hepatic profile, continue supportive care, judicious hydration given overload risk, closely monitor for worsening status for ARDS and multiorgan failure, in the ED on check patient is noted to be 95% however with activity he does desaturate to less than 94% therefore will initiate IV decadron x 10 doses, defer remdesivir given not requiring oxygen. PT/OT/CM consulted for discharge planning. 2. Acute Renal Insufficiency on Chronic Kidney Disease Stage III, unclear subtype per previous GFR trending through 2021: Admission BUN/Cr 26/1.66, baseline renal function more recently 1.0-1.3, will continue judicious hydration, repeat CMP in AM. 3. Hyperglycemia: Possibly stress response, admission glucose 177, hemoglobin once he requested to be cautious especially given intention of steroid usage as noted. 4. PAF with RVR: Related to #1, onset with dry heaves in the ED and had not taken his BB therapy, cardizem 20 mg x 1 being administered in the ED, we will continue patient home metoprolol regimen as well as home Xarelto regimen. 5. Valvular heart disease: Status post TAVR 08/11/2021, 01/13/2023 echocardiogram with EF 60%, severely enlarged LA, moderately enlarged RA, trivial MVI, TAVR noted to be well-seated and functioning well with no significant stenosis or regurgitation. Encourage continued outpatient follow-up as previously arranged with his cardiology services. 6. History CVA: Patient with history of CVA with vertebral artery stenosis, continue patient home Xarelto regimen, statin, hypertensive regimen as noted, investigating hyperglycemia as noted. PT/OT/case management consulted for discharge planning. 7. Carotid artery disease: Status post left CEA remotely, will continue Xarelto, statin, hypertensive regimen as BP allows. 8. Hypertension: Continue home regimen including metoprolol, clarifying but also appears to be on amlodipine and possibly benazepril, will hold benazepril component given renal insufficiency, PRN hydralazine. 9. Hyperlipidemia: We will continue patient on statin therapy. 10. GERD with history of GI bleed/Santillan's esophagus: We will continue patient on PPI. 11. BPH with unclear obstructive process: Per most recent list noted not on regimen, encourage continued outpatient follow-up as needed. 12. DVT prophylaxis: Continue patient home Xarelto regimen. 13. CODE status: Patient LIVE is his daughter who is present and living will is currently in place. Discussed CODE status at length including difference between FULL code, DNR-CCA and DNR-CC status. Following discussions about the differences in these status, requested DNR-CCA, no intubation, no pressor therapy, no central line. He is not interested in further COVID vaccination. Advanced Care Planning Face to Face Time: 16 minutes. Charges/Coding Visit Charges Inpatient E&M: 92672 Init Hosp L3 Procedures Hospitalists Procedures: 90294 Advncd Care Plan 30 Min
[2023-12-10 11:13] LABS: Color, Urine Yellow (Yellow); Glucose, Dipstick Normal (Normal); Ketone-Dipstick 5 mg/dl (Negative); Leukocyte Esterase-Dipstick 25 /ul (Negative); Nitrite-Dipstick Negative (Negative); Occult Blood-Urine 10 /ul (Negative); Protein-Dipstick 30 mg/dl (Negative); Specific Gravity, Urine 1.025 (1.002-1.030); Urine Bilirubin Dipstick 1 mg/dL (Negative); Urine Clarity Clear (Clear); Urine Urobilinogen 1 mg/dl (Normal)
[2023-12-10 11:14] LABS: Mucous, Urine 3+ /hpf (<or=2+); Red Blood Cells-Urine 0-5 SEEN /hpf (0-5)
--- OUTSIDE RECORDS SUMMARY | 2023-12-10 11:14 | XMS RPT_ITS | CCD ---
Author Name Unknown Address [address] [facility] [address] [place] [address] Organization [facility] Care Team Providers Care Dobby Loom Weaver Name Role Phone Jono Vásquez Primary Care Provider [phone] YI CHEEK, ZEE Primary Care Physician None, No PCP Unavailable Unavailable WARREN HUERTA, [...] [terazosin] Drug Allergy 1 lower blood pressure [facility] [place] Medications Current Medications Medication Drug Class(es) Dates Sig (Normalized) Sig (Original) alendronic acid 35 mg oral tablet (9 sources) Bisphosphonate Start: 09-28-2021 take 1 tablet by mouth every week alendronate 35 mg oral tablet See Instructions, TAKE 1 TABLET EVERY WEEK, # 12 tab(s), 3 Refill(s), Pharmacy: [facility], 170.2, cm, 09/18/21 13:42:00 [...] supper, # 90 tab(s), 3 Refill(s), Pharmacy: [facility], 172, cm, 11/25/20 9:22:00 [...] Heart rate 63 /min NORMA VICENTE MD [facility] 08-12-2021 12:23-0400 Heart rate 65 /min NORMA VICENTE MD [facility] 08-12-2021 12:23-0400 Reason For Taking VItal Signs NORMA VICENTE MD [facility] 08-12-2021 11:36-0400 Body temperature 98.24 [degF] NORMA VICENTE MD [facility] 08-12-2021 11:36-0400 Diastolic Blood Pressure NBP 75 1 NORMA VICENTE MD [facility] 08-12-2021 11:36-0400 Heart rate 68 /min NORMA VICENTE MD [facility] 08-12-2021 11:36-0400 Mean blood pressure 90 mm[Hg] NORMA VICENTE MD [facility] 08-12-2021 11:36-0400 Reason For Taking VItal Signs NORMA VICENTE MD [facility] 08-12-2021 11:36-0400 Respiratory rate 18 /min NORMA VICENTE MD [facility] 08-12-2021 11:36-0400 Systolic Blood Pressure NBP 133 1 NORMA VICENTE MD [facility] 08-12-2021 08:42-0400 Diastolic Blood Pressure NBP 76 1 NORMA VICENTE MD [facility] 08-12-2021 08:42-0400 Heart rate 76 /min NORMA VICENTE MD [facility] 08-12-2021 08:42-0400 Mean blood pressure 86 mm[Hg] NORMA VICENTE MD [facility] 08-12-2021 08:42-0400 Reason For Taking VItal Signs NORMA VICENTE MD [facility] 08-12-2021 08:42-0400 Respiratory rate 18 /min NORMA VICENTE MD [facility] 08-12-2021 08:42-0400 Systolic Blood Pressure NBP 119 1 NORMA VICENTE MD [facility] 08-12-2021 07:09-0400 Body temperature 98.42 [degF] NORMA VICENTE MD [facility] 08-12-2021 07:09-0400 Diastolic Blood Pressure NBP 83 1 NORMA VICENTE MD [facility] 08-12-2021 07:09-0400 Mean blood pressure 95 mm[Hg] NORMA VICENTE MD [facility] 08-12-2021 07:09-0400 Systolic Blood Pressure NBP 127 1 NORMA VICENTE MD [facility] 08-12-2021 03:59-0400 Body temperature 97.7 [degF] NORMA VICENTE MD [address] [place] [address] 08-12-2021 03:59-0400 Respiratory rate 18 /min NORMA VICENTE MD [facility] 08-11-2021 18:24-0400 Heart rate 115 /min NORMA VICENTE MD [facility] 08-11-2021 08:15-0400 Body height 170.2 cm NORMA VICENTE MD [facility] 08-11-2021 08:15-0400 Body weight 67.6 kg NORMA VICENTE MD [facility] 08-11-2021 08:15-0400 Body weight 23.34 kg/m2 NORMA VICENTE MD [facility] 08-11-2021 08:15-0400 diastolic 92 mm[Hg] NORMA VICENTE MD [facility] 08-11-2021 08:15-0400 Heart rate 78 /min NORMA VICENTE MD [facility] 08-11-2021 08:15-0400 systolic 161 mm[Hg] NORMA VICENTE MD [facility] Encounters Encounter Date Encounter Type Care Provider Facility Start: 04-20-2023 End: 04-21-[address] SEGUN KELLEY DO Facility:B Start: 04-20-2023 End: 04-20-[address] SEGUN KELLEY DO [facility] Start: 03-16-2023 End: 03-17-[address] SEGUN KELLEY DO Facility:[facility] Start: 02-23-2023 End: 02-28-[address] SEGUN KELLEY DO Facility:[facility] Start: 02-23-2023 End: 02-27-[address] SEGUN KELLEY DO [facility] Start: 02-23-2023 End: 02-23-[address] SEGUN KELLEY DO [facility] Start: 07-01-2022 End: 07-02-2022 ambulatory THEO MANSFIELD APRN-SET BUILDER Facility:B Start: 07-01-2022 End: 07-01-2022 Patient encounter procedure THEO MANSFIELD APRN-SET BUILDER [facility] Start: 02-03-2022 Phys/qhp telephone evaluation 21-30 min No PCP None [facility] Work Phone: Start: 09-11-2021 End: 09-11-2021 Patient encounter procedure THEO MANSFIELD APRN-SET BUILDER [facility] Start: 08-11-2021 End: 08-12-2021 Evaluation and management of inpatient NORMA VICENTE MD [facility] Start: 08-13-2020 End: 08-13-2020 Telephone encounter Rommel (Health Sciences Manager Computer Game Programmer) Juan A Work Phone: [place] PROVIDER ADULT Procedures Date Procedure Procedure Detail Performing Clinician Start: 08-11-2021 Transcatheter aortic valve replacement NORMA VICENTE MD Start: 07-04-2020 Echo tthrc r-t 2d w/ wom-mode compl spec&colr d Rommel (Health Sciences Manager Computer Game Programmer) Juan A Work Phone: Start: 07-04-2020 LVEF ECHO Rommel (Apr n Computer Game Programmer) Juan A Work Phone: Start: 07-04-2020 Xtrnl pt activated e cg record monitor 30 days Rommel (Health Sciences Manager Computer Game Programmer) Juan A Work Phone: Start: 06-17-2020 CARDIAC [facility] Prov[facility] er Start: 02-01-2018 Echocardiography NORMA VICENTE MD Start: 03-07-2017 Left inguinal hernia (disorder) NORMA VICENTE MD Start: 02-13-2004 Colonoscopy NORMA KAPLAN MD Plan of Treatment Date Care Activity Detail Author Start: 07-01-2020 Influenza vaccination INFLUENZA (#1) [facility] Start: 2002 ADVANCE DIRECTIVE DISCUSSION ADVANCE DIRECTIVE DISCUSSION [facility] Start: 2002 PNEUMOVAX AGE 65 AND OVER WITH 5YR LOOKBACK (#1) PNEUMOVAX AGE 65 AND OVER WITH 5YR LOOKBACK (#1) [facility] Start: 1987 SHINGRIX VACCINE (1 of 2) CHAPMAN GRIX VACCINE (1 of 2) [facility] Start: 1982 DIABETES SCREEN DIABETES SCREEN [facility] Start: 1956 Urine microalbumin profile DTAP,TDAP ,TD (1 - Tdap) [facility] Immunizations Immunization Date Immunization Notes Care Provider Fa [facility] 01-12-2023 COVID-19, mRNA, LNP- S, bivalent booster, PF, 30 mcg/0.3 mL dose; Translations: [[employer] COVID-19 (12y+) Bivalent Booster Vaccine PF] DR SEGUN KELLEY DO [facility] Payers Date Payer Category Payer Private Health Insurance [id number] 2017 Medicare HU[employer]NA MEDICARE HU[employer]NA MEDICARE PPO [id number] 2017-Present PPO [id number] 1935 Unknown [id number] 1935 Unknown [id number] 1937 Unknown [id number] 1935 Unknown [id number] 1935 Unknown [id number] Unknown [employer] GOLD CHOICE Social History Date Type Detail Facility Start: 05-11-2019 End: 06-09-2020 Tobacco smoking status PRIS Never smoker [facility] in Clinical Notes 07-11-2021 to 09-30-2021 Note [...] does not smoke or have family history. [facility]fl[facility] ll 6 [facility] Work Phone: 08-12-2021 Hospital [...] need to report the following to your commercial intern: Any draining or oozing from the site [...] Care 07/29/2021 09:22:01 With:NORMA VICENTE MD Address: [address] [place] [address] [address] [facility] [address] [facility] [address]- [phone] When:09/18/2021 13:30:00 Comments:30-day TAVR follow up; echo and labwork prior to office visit With:Echocardiogram Address: When:09/11/2021 13:00:00 Comments:This is scheduled at [facility]. Please have lab work done around the same time, prior to your office visit. With:ZEE RICHMOND APRN-[facility] Address: [address] [facility] [place] [address]- When:1-2 days Comments:Please call the office to set up a follow up appointment [facility] 1. Severe aortic stenosis Plan for TAVR [...] Appointment Date:08/13/2021 09:50:00 AM Scheduled Provider:ZEE RICHMOND Location:[facility] Appointment Type:PC OV Hospital Follow-Up Appointment Date:09/11/2021 01:00:00 PM Scheduled Provider: Location:[facility] Appointment Type:CV Procedure - AOH Echo Appointment Date:09/18/2021 01:30:00 PM Scheduled Provider: Location:[facility] Appointment Type:CV OV Structural Heart Future Scheduled Tests Laboratory* Basic Metabolic Panel 08/11/21 * Complete Blood Count 08/11/21 [facility] 09-11-2021 NoteHNO ID: [id number] Author: Kip Enamorado APRN.CNP Service: ? Author Type: Nurse Practitioner Type: Progress Notes Filed: 07/11/2021 3:38 PM Note Text: Visit Date: July 11, 2021 Patient Name: Mr.Carrol Marcum Date of : 1935 MRN/E #: [id number] Chief Complaint Patient presents with: Pain: teeth [...] plan with patient. [facility]able with [facility] Future Appointments Appointment Date:09/18/2021 01:30:00 PM Scheduled Provider: Location:[facility] Appointment Type:CV OV Structural Heart [facility] Evaluation + Plan note Future Appointments Appointment Date:07/22/2022 01:00:00 PM Scheduled Provider: Location:[facility] Appointment Type:CV OV Structural Heart [facility] Evaluation + Plan note Future Appointments Appointment Date:04/19/2023 04:00:00 PM Scheduled Provider:SEGUN KELLEY DO Location:[facility] Appointment Type:PC OV Future Scheduled Tests Laboratory* Urine Culture 02/23/23 Radiology* MRI Brain w/ + w/o Contrast 01/12/23 [facility] Evaluation + Plan note Future Appointments Appointment Date:04/19/2023 04:00:00 PM Scheduled Provider:SEGUN KELLEY DO Location:[facility] Appointment Type:PC OV Future Scheduled Tests Laboratory* Phosphorus Level 04/10/23 * Urine Culture 02/23/23 * Complete Blood Count 04/10/23 * PTH, Intact 04/10/23 Radiology* US Abdomen Limited 02/27/23 * US Renal 02/27/23 [facility] Evaluation + Plan note Future Appointments Appointment Date:07/12/2023 03:00:00 PM Scheduled Provider:SEGUN KELLEY DO Location:[facility] Appointment Type:PC OV Future Scheduled Tests Laboratory* Protein Electrophoresis Urine 04/19/23 [facility] Hospital course Narrative No data available for this section [facility] Discharge instructions No data available for this section [facility] Progress note No data available for this section [facility] Reason for Referral Status Reason Specialty Diagnoses / Procedures Referred By Contact Referred To Contact Waiting for Online Response Auto-Generate d Referral Patient Cleared - Admin/Chairma n/Director advise to proceed [facility] Diagnoses Permanent atrial fibrillation (HCC) Wide-complex tachycardia (HCC) Procedures ECHO TTE W/DOPPLER, COMPLETE Rommel Velazco (Health Sciences Manager Computer Game Programmer), GEOMORPHOLOGY TEACHER [address] [facility], [address] [place] [address] [facility] [place] [address] [place] [address] Assessments Diagnosis Permanent atrial fibrillation (HCC) Atrial [...] or prosecute any alcohol or drug abuse patient.[facility] the event this information is protected by the Federal Confidentiality of Alcohol and Drug Abuse Patient Records regulations: The Federal rules restrict any use of the information to criminally investigate or prosecute any alcohol or drug abuse patient.[facility] the event this information is protected by the Federal Confidentiality of Alcohol and Drug Abuse Patient Records regulations: The Federal rules restrict any use of the information to criminally investigate or prosecute any alcohol or drug abuse patient.[facility] the event this information is protected by the Federal Confidentiality of Alcohol and Drug Abuse Patient Records regulations: The Federal rules restrict any use of the information to criminally investigate or prosecute any alcohol or drug abuse patient.[facility] the event this information is protected by the Federal Confidentiality of Alcohol and Drug Abuse Patient Records regulations: The Federal rules restrict any use of the information to criminally investigate or prosecute any alcohol or drug abuse patient.[facility] the event this information is protected by [...] and left a message for to call [facility] for test results. Gina Wallace LPN [...] in the office in May. Rommel Velazco APRN.GEOMORPHOLOGY TEACHER documented in this encounter (unrecognized sect ion and content) No Status Records FoundNo Status Records FoundNo Status Records FoundNo Status Records FoundNo Status Records Found INFORMATION SOURCE (unrecogn ized section and content) DATE CREATED AUTHOR AUTHOR'S ORGANIZ ATION 08/14/2020 [facility] DATE CREATED AUTHOR AUTHOR'S ORGANIZ ATION 11/26/2021 [facility] DATE CREATED AUTHOR AUTHOR'S ORGANIZ ATION 02/06/2022 [facility] DATE CREATED AUTHOR AUTHOR'S ORGANIZ ATION 04/21/2023 [facility] ([place]) Care Team (unrecognized sect ion and content) Care Team Personnel Name: JAKUB CONNORS MD Position: P4 Physician - Cardiothoracic Surgery Address: Address: [facility] [address] [place] [address] [facility] [address] [facility] [place] [address]- Name: JEFFREY MENDOZA MD Address: Address: [address] [facility] [address] [place] [address]- Name: NORMA VICENTE MD Position: P4 Physician - Cardiology Address: Address: [address] [place] [address] [address] [facility] [place] [address]- Name: [facility]EE [facility]ICH[facility]D [facility] Position: P4 Advanced Practice Nurse Member Role: Primary Care Physician Address: Address: [address] [place] [address]- [place] Care Team Related Persons Name: ADITI REED Name: ADITI REED Name: KIKI REED Name: THU REED Patient Care team informatio n (unrecognized section and content) Care Team Personnel Name: JAKUB CONNORS MD Position: P4 Physician - Cardiothoracic Surgery Member Role: Cardiothoracic Surgeon Address: Address: [address] [place], [place] [address] [facility] [address] [facility] Cardiothoracic Surgery [address] Name: JEFFREY MENDOZA MD Member Role: Health Professor Address: Address: [address] [facility] [address] [place] [address]- Name: NORMA VICENTE MD Position: P4 Physician - Cardiology Member Role: Health Professor Address: Address: [address] [place] [address] [address] [place] [address]- Name: SEGUN KELLEY DO Position: P4 Physician - Primary Care Member Role: Primary Care Physician Address: Address: [address] [place] [address]- Care Team Related Persons Name: ADITI REED Name: ADITI REED Name: KIKI REED Name: THU REED Care Team Personnel Name: JAKUB CONNORS MD Position: P4 Physician - Cardiothoracic Surgery Member Role: Cardiothoracic Surgeon Address: Address: [address] [place], [place] [address] [facility] [address] [facility] [place] [address]- Name: JEFFREY MENDOZA MD Member Role: Health Professor Address: Address: [address] [place] [address]- Name: NORMA VICENTE MD Position: P4 Physician - Cardiology Member Role: Health Professor Address: Address: [address] [place] [address] [address] [place] [address]- Name: SEGUN KELLEY DO Position: P4 Physician - Primary Care Member Role: Primary Care Physician Address: Address: [address] [place] [address]- Care Team Related Persons Name: ADITI REED Name: ADITI REED Name: KIKI REED Name: THU REED Care Team Personnel Name: JAKUB CONNORS MD Position: P4 Physician - Cardiothoracic Surgery Member Role: Cardiothoracic Surgeon Address: Address: [address] [place] [address] [address] [facility] [place] [address]- [place] Name: JEFFREY MENDOZA MD Member Role: Health Professor Address: Address: [facility] [place] [address]- Name: NORMA VICENTE MD Position: P4 Physician - Cardiology Member Role: Health Professor Address: Address: [address] [place] [address] [address] [place] [address]- Name: FRANKSEGUN NELSON Position: P4 Physician - Primary Care Member Role: Primary Care Physician Address: Address: [address] [facility] [place] [address]- Care Team Related Persons Name: RUTHIE REEDNA [...] BE BASED ON THE PRIMARY CLINICAL RECORDS. [facility] [employer] provides no warranty or guarantee of the accuracy or completeness of information in this document.
[2023-12-10 11:30] LABS: AST(SGOT) 31 U/L (15-37); Alanine Aminotransfer ALT/SGPT 33 U/L (16-61); Albumin, Serum 3.1 g/dL (3.2-5.0); Alkaline Phosphatase 77 U/L (45-117); Bilirubin, Direct 0.44 mg/dL (0.00-0.30); Ferritin 122 ng/mL (26-388); Globulin 3.8 g/dL (2.2-4.2); LDH 296 U/L (87-241); Magnesium 1.9 mg/dL (1.6-2.6); Protein, Total 6.9 g/dL (6.4-8.2); Troponin-I HS 10 pg/mL (3.0-78.0)
[2023-12-10 11:36] LABS: CPK Total, Creatine Kinase 102 U/L (39-308)
[2023-12-10 11:43] LABS: D-Dimer Quantitative (DVT/PE) 0.92 FEU/ug/m (0.27-0.49)
[2023-12-10] MEDS: dilTIAZem 25 MG/5 ML Vial 20 MG IV BOLUS (11:46)
[2023-12-10] MEDS: Ondansetron 4 MG/2 ML Vial IV (11:46)
[2023-12-10 12:00] LABS: Procalcitonin 0.17 ng/mL (0.00-0.09)
[2023-12-10 12:26] LABS: Erythrocyte Sedimentation Rate 16 mm/hr (0-20)
--- OUTSIDE RECORDS SUMMARY | 2023-12-10 12:33 | XMS RPT_ITS | CCD ---
Author Name Unknown Address [address] [facility] [address] [place] [address] Organization [facility] Care Team Providers Care System Support Technician Name Role Phone Jono Vásquez Primary Care Provider [phone] YI CHEEK, ZEE Primary Care Physician [phone] None, No PCP Unavailable Unavailable WARREN HUERTA, [...] [terazosin] Drug Allergy 1 lower blood pressure [facility] [place] Medications Current Medications Medication Drug Class(es) Dates Sig (Normalized) Sig (Original) alendronic acid 35 mg oral tablet (9 sources) Bisphosphonate Start: 09-28-2021 take 1 tablet by mouth every week alendronate 35 mg oral tablet See Instructions, TAKE 1 TABLET EVERY WEEK, # 12 tab(s), 3 Refill(s), Pharmacy: [facility], 170.2, cm, 09/18/21 13:42:00 [...] supper, # 90 tab(s), 3 Refill(s), [facility], 172, cm, 11/25/20 9:22:00 [...] Heart rate 63 /min NORMA VICENTE MD [facility] 08-12-2021 12:23-0400 Heart rate 65 /min NORMA VICENTE MD [facility] 08-12-2021 12:23-0400 Reason For Taking VItal Signs NORMA VICENTE MD [facility] 08-12-2021 11:36-0400 Body temperature 98.24 [degF] NORMA VICENTE MD [facility] 08-12-2021 11:36-0400 Diastolic Blood Pressure NBP 75 1 NORMA VICENTE MD [facility] 08-12-2021 11:36-0400 Heart rate 68 /min NORMA VICENTE MD [facility] 08-12-2021 11:36-0400 Mean blood pressure 90 mm[Hg] NORMA VICENTE MD [facility] 08-12-2021 11:36-0400 Reason For Taking VItal Signs NORMA VICENTE MD [facility] 08-12-2021 11:36-0400 Respiratory rate 18 /min NORMA VICENTE MD [facility] 08-12-2021 11:36-0400 Systolic Blood Pressure NBP 133 1 NORMA VICENTE MD [facility] 08-12-2021 08:42-0400 Diastolic Blood Pressure NBP 76 1 NORMA VICENTE MD [facility] 08-12-2021 08:42-0400 Heart rate 76 /min NORMA VICENTE MD [facility] 08-12-2021 08:42-0400 Mean blood pressure 86 mm[Hg] NORMA VICENTE MD [facility] 08-12-2021 08:42-0400 Reason For Taking VItal Signs NORMA VICENTE MD [facility] 08-12-2021 08:42-0400 Respiratory rate 18 /min NORMA VICENTE MD [facility] 08-12-2021 08:42-0400 Systolic Blood Pressure NBP 119 1 NORMA VICENTE MD [facility] 08-12-2021 07:09-0400 Body temperature 98.42 [degF] NORMA VICENTE MD [facility] 08-12-2021 07:09-0400 Diastolic Blood Pressure NBP 83 1 NORMA VICENTE MD [facility] 08-12-2021 07:09-0400 Mean blood pressure 95 mm[Hg] NORMA VICENTE MD [facility] 08-12-2021 07:09-0400 Systolic Blood Pressure NBP 127 1 NORMA VICENTE MD [facility] 08-12-2021 03:59-0400 Body temperature 97.7 [degF] NORMA VICENTE MD [address] [place] [address] 08-12-2021 03:59-0400 Respiratory rate 18 /min NORMA VICENTE MD [facility] 08-11-2021 18:24-0400 Heart rate 115 /min NORMA VICENTE MD [facility] 08-11-2021 08:15-0400 Body height 170.2 cm NORMA VICENTE MD [facility] 08-11-2021 08:15-0400 Body weight 67.6 kg NORMA VICENTE MD [facility] 08-11-2021 08:15-0400 Body weight 23.34 kg/m2 NORMA VICENTE MD [facility] 08-11-2021 08:15-0400 diastolic 92 mm[Hg] NORMA VICENTE MD [facility] 08-11-2021 08:15-0400 Heart rate 78 /min NORMA VICENTE MD [facility] 08-11-2021 08:15-0400 systolic 161 mm[Hg] NORMA VICENTE MD [facility] Encounters Encounter Date Encounter Type Care Provider Facility Start: 04-20-2023 End: 04-21-[address] SEGUN KELLEY DO Facility:[facility] Start: 04-20-2023 End: 04-20-[address] SEGUN KELLEY DO [facility] Start: 03-16-2023 End: 03-17-[address] SEGUN KELLEY DO Facility:[facility] Start: 02-23-2023 End: 02-28-[address] SEGUN KELLEY DO Facility:[facility] Start: 02-23-2023 End: 02-27-[address] SEGUN KELLEY DO [facility] Start: 02-23-2023 End: 02-23-[address] SEGUN KELLEY DO [facility] Start: 07-01-2022 End: 07-02-2022 ambulatory THEO MANSFIELD APRN-SOFTWARE PRODUCT SPECIALIST Facility:B Start: 07-01-2022 End: 07-01-2022 Patient encounter procedure THEO MANSFIELD APRN-SOFTWARE PRODUCT SPECIALIST [facility] Start: 02-03-2022 Phys/qhp telephone evaluation 21-30 min No PCP None LQ-Piswzfakvkabwuke-Xrv [facility] Work Phone: Start: 09-11-2021 End: 09-11-2021 Patient encounter procedure THEO MANSFIELD APRN-SOFTWARE PRODUCT SPECIALIST [facility] Start: 08-11-2021 End: 08-12-2021 Evaluation and management of inpatient NORMA VICENTE MD [facility] Start: 08-13-2020 End: 08-13-2020 Telephone encounter Rommel (Orthopedic Physician Assistant Entry Level Financial Analyst) Juan A Work Phone: [place] PROVIDER ADULT Procedures Date Procedure Procedure Detail Performing Clinician Start: 08-11-2021 Transcatheter aortic valve replacement NORMA VICENTE MD Start: 07-04-2020 Echo tthrc r-t 2d w/ wom-mode compl spec&colr d Rommel (Orthopedic Physician Assistant Entry Level Financial Analyst) Juan A Work Phone: Start: 07-04-2020 LVEF ECHO Rommel (Apr n Entry Level Financial Analyst) Juan A Work Phone: Start: 07-04-2020 Xtrnl pt activated e cg record monitor 30 days Rommel (Orthopedic Physician Assistant Entry Level Financial Analyst) Juan A Work Phone: Start: 06-17-2020 CARDIAC [facility] Start: 02-01-2018 Echocardiography NORMA VICENTE MD Start: 03-07-2017 Left inguinal hernia (disorder) NORMA VICENTE MD Start: 02-13-2004 Colonoscopy NORMA KAPLAN MD Plan of Treatment Date Care Activity Detail Author Start: 07-01-2020 Influenza vaccination INFLUENZA (#1) [facility] Start: 2002 ADVANCE DIRECTIVE DISCUSSION ADVANCE DIRECTIVE DISCUSSION [facility] Start: 2002 PNEUMOVAX AGE 65 AND OVER WITH 5YR LOOKBACK (#1) PNEUMOVAX AGE 65 AND OVER WITH 5YR LOOKBACK (#1) [facility] Start: 1987 SHINGRIX VACCINE (1 of 2) CHAPMAN GRIX VACCINE (1 of 2) [facility] Start: 1982 DIABETES SCREEN DIABETES SCREEN [facility] Start: 1956 Urine microalbumin profile DTAP,TDAP ,TD (1 - Tdap) [facility] Immunizations Immunization Date Immunization Notes Care Provider Fa [facility] 01-12-2023 COVID-19, mRNA, LNP- S, bivalent booster, PF, 30 mcg/0.3 mL dose; Translations: [Pfizer-BioNTQuigo COVID-19 (12y+) Bivalent Booster Vaccine PF] DR SEGUN KELLEY DO [facility] Payers Date Payer Category Payer Private Health Insurance [id number] 2017 Medicare HUMANA MEDICARE HUMANA MEDICARE PPO [id number] 2017-Present PPO [id number] 1935 Unknown [id number] 1935 Unknown [id number] 1937 Unknown [id number] 1937 Unknown [id number] 1935 Unknown [id number] Unknown [employer] GOLD CHOICE Social History Date Type Detail Facility Start: 05-11-2019 End: 06-09-2020 Tobacco smoking status IAIS Never smoker [facility] in Clinical Notes 07-11-2021 to 09-30-2021 [...] does not smoke or have family history. [facility]pkglmz[facility]lezt[facility] 6 [facility] Work Phone: 08-12-2021 Hospital [...] need to report the following to your yarn twister: Any draining or oozing from the site [...] Care 07/29/2021 09:22:01 With:NORMA VICENTE MD Address: [address] [place] [address] [address] [facility] [address] [facility] [place] [address]- [phone] When:09/18/2021 13:30:00 Comments:30-day TAVR follow up; echo and labwork prior to office visit With:Echocardiogram Address: When:09/11/2021 13:00:00 Comments:This is scheduled at [facility]. Please have lab work done around the same time, prior to your office visit. With:ZEE RICHMOND APRN-[facility] Address: [address] [facility] [place] [address]- When:1-2 days Comments:Please call the office to set up a follow up appointment [facility] 1. Severe aortic stenosis Plan for TAVR [...] Appointment Date:08/13/2021 09:50:00 AM Scheduled Provider:ZEE RICHMOND Location:[facility] Appointment Type:PC OV Hospital Follow-Up Appointment Date:09/11/2021 01:00:00 PM Scheduled Provider: Location:[facility] Appointment Type:CV Procedure - AOH Echo Appointment Date:09/18/2021 01:30:00 PM Scheduled Provider: Location:[facility] Appointment Type:CV OV Structural Heart Future Scheduled Tests Laboratory* Basic Metabolic Panel 08/11/21 * Complete Blood Count 08/11/21 [facility] 09-11-2021 NoteHNO ID: [id number] Author: Kip Enamorado APRN.CNP Service: ? Author Type: Nurse Practitioner Type: Progress Notes Filed: 07/11/2021 3:38 PM Note Text: Visit Date: July 11, 2021 Patient Name: Mr.Carrol Marcum Date of : 1935 MRN/E #: [id number] Chief Complaint Patient presents with: Pain: teeth [...] plan with patient. Pt agreeable with [facility] Future Appointments Appointment Date:09/18/2021 01:30:00 PM Scheduled Provider: Location:[facility] Appointment Type:CV OV Structural Heart [facility] Evaluation + Plan note Future Appointments Appointment Date:07/22/2022 01:00:00 PM Scheduled Provider: Location:[facility] Appointment Type:CV OV Structural Heart [facility] Evaluation + Plan note Future Appointments Appointment Date:04/19/2023 04:00:00 PM Scheduled Provider:SEGUN KELLEY DO Location:[facility] Appointment Type:PC OV Future Scheduled Tests Laboratory* Urine Culture 02/23/23 Radiology* MRI Brain w/ + w/o Contrast 01/12/23 [facility] Evaluation + Plan note Future Appointments Appointment Date:04/19/2023 04:00:00 PM Scheduled Provider:SEGUN KELLEY DO Location:[facility] Appointment Type:PC OV Future Scheduled Tests Laboratory* Phosphorus Level 04/10/23 * Urine Culture 02/23/23 * Complete Blood Count 04/10/23 * PTH, Intact 04/10/23 Radiology* US Abdomen Limited 02/27/23 * US Renal 02/27/23 [facility] Evaluation + Plan note Future Appointments Appointment Date:07/12/2023 03:00:00 PM Scheduled Provider:SEGUN KELLEY DO Location:[facility] Appointment Type:PC OV Future Scheduled Tests Laboratory* Protein Electrophoresis Urine 04/19/23 [facility] Hospital course Narrative No data available for this section [facility] Hospital Discharge instructions No data available for this section [facility] Progress note No data available for this section [facility] Reason for Referral Status Reason Specialty Diagnoses / Procedures Referred By Contact Referred To Contact Waiting for Online Response Auto-Generate d Referral Patient Cleared - Admin/Chairma n/Director advise to proceed [facility] Diagnoses Permanent atrial fibrillation (HCC) Wide-complex tachycardia (HCC) Procedures ECHO TTE W/DOPPLER, COMPLETE Rommel Velazco (Orthopedic Physician Assistant Entry Level Financial Analyst), LICENSE ISSUER [address] [facility], [address] [place] [address] [facility] [place] [address] [place] [address] Assessments Diagnosis Permanent atrial fibrillation (HCC) Atrial [...] or prosecute any alcohol or drug abuse patient.[facility] the event this information is protected by the Federal Confidentiality of Alcohol and Drug Abuse Patient Records regulations: The Federal rules restrict any use of the information to criminally investigate or prosecute any alcohol or drug abuse patient.[facility] the event this information is protected by the Federal Confidentiality of Alcohol and Drug Abuse Patient Records regulations: The Federal rules restrict any use of the information to criminally investigate or prosecute any alcohol or drug abuse patient.[facility] the event this information is protected by the Federal Confidentiality of Alcohol and Drug Abuse Patient Records regulations: The Federal rules restrict any use of the information to criminally investigate or prosecute any alcohol or drug abuse patient.[facility] the event this information is protected by the Federal Confidentiality of Alcohol and Drug Abuse Patient Records regulations: The Federal rules restrict any use of the information to criminally investigate or prosecute any alcohol or drug abuse patient.[facility] Hospital[facility] the event this information is protected [...] and left a message for to call [facility] for test results. Gina Wallace LPN [...] in the office in May. Rommel Velazco APRN.LICENSE ISSUER documented in this encounter (unrecognized sect ion and content) No Status Records FoundNo Status Records FoundNo Status Records FoundNo Status Records FoundNo Status Records Found INFORMATION SOURCE (unrecogn ized section and content) DATE CREATED AUTHOR AUTHOR'S ORGANIZ ATION 08/14/2020 [facility] DATE CREATED AUTHOR AUTHOR'S ORGANIZ ATION 11/26/2021 [facility] DATE CREATED AUTHOR AUTHOR'S ORGANIZ ATION 02/06/2022 [employer] DATE CREATED AUTHOR AUTHOR'S ORGANIZ ATION 04/21/2023 [facility] Care Team (unrecognized sect ion and content) Care Team Personnel Name: JAKUB CONNORS MD Position: P4 Physician - Cardiothoracic Surgery Address: Address: [facility] [address] [place] [address] [facility] [address] [facility] [place]oth[place] [address]- Name: JEFFREY MENDOZA MD Address: Address: [address] [facility] [address] [place] [address]- Name: NORMA VICENTE MD Position: P4 Physician - Cardiology Address: Address: [address] [place] [address] [address] [facility] [place] [address]- Name: [facility]EE [facility]ICHMOND [facility] Position: P4 Advanced Practice Nurse Member Role: Primary Care Physician Address: Address: [address] [place] [address]- [place] Care Team Related Persons Name: ADITI REED Name: ADITI REED Name: KIKI REED Name: THU REED Patient Care team informatio n (unrecognized section and content) Care Team Personnel Name: JAKUB CONNORS MD Position: P4 Physician - Cardiothoracic Surgery Member Role: Cardiothoracic Surgeon Address: Address: [address] [place], [place] [address] [facility] [address] [facility] Cardiothoracic Surgery [address] Name: JEFFREY MENDOZA MD Member Role: Cocoa Powder Mixer Operator Address: Address: [address] [facility] [address] [place] [address]- Name: NORMA VICENTE MD Position: P4 Physician - Cardiology Member Role: Cocoa Powder Mixer Operator Address: Address: [address] [place] [address] [address] [place] [address]- Name: SEGUN KELLEY DO Position: P4 Physician - Primary Care Member Role: Primary Care Physician Address: Address: [address] [place] [address]- Care Team Related Persons Name: ADITI REED Name: ADITI REED Name: KIKI REED Name: THU REED Care Team Personnel Name: JAKUB CONNORS MD Position: P4 Physician - Cardiothoracic Surgery Member Role: Cardiothoracic Surgeon Address: Address: [address] [place], [place] [address] [facility] [address] [facility] [place]iooracic [place] [address]- Name: JEFFREY MENDOZA MD Member Role: Cocoa Powder Mixer Operator Address: Address: [address] [place] [address]- Name: NORMA VICENTE MD Position: P4 Physician - Cardiology Member Role: Cocoa Powder Mixer Operator Address: Address: [address] [place] [address] [address] [place] [address]- Name: SEGUN KELLEY DO Position: P4 Physician - Primary Care Member Role: Primary Care Physician Address: Address: [address] [place] [address]- Care Team Related Persons Name: ADITI REED Name: ADITI REED Name: KIKI REED Name: THU REED Care Team Personnel Name: JAKUB CONNORS MD Position: P4 Physician - Cardiothoracic Surgery Member Role: Cardiothoracic Surgeon Address: Address: [address] [place] [address] [address] [facility] [place]iooracic [place] [address]- [place] Name: JEFFREY MENDOZA MD Member Role: Cocoa Powder Mixer Operator Address: Address: [facility] [place] [address]- Name: NORMA VICENTE MD Position: P4 Physician - Cardiology Member Role: Cocoa Powder Mixer Operator Address: Address: [address] [place] [address] [address] [place] [address]- Name: FRANKSEGUN NELSON Position: P4 Physician - Primary Care Member Role: Primary Care Physician Address: Address: [address] [facility] [address]- Care Team Related Persons Name: RUHTIE REEDNA Name: ERINNKALEBGRACIE ADITI Name: KIKI REED [...] BE BASED ON THE PRIMARY CLINICAL RECORDS. [employer] provides no warranty or guarantee of the accuracy or completeness of information in this document.
[2023-12-10 13:59] LABS: BNP,B-Type NATRIURETIC PEPTIDE 128.7 pg/mL (0-100); Hemoglobin A1c 5.9 % (3.8-5.6)
[2023-12-10] MEDS: Acetaminophen 325 MG Tablet 650 MG PO (14:28)
[2023-12-10] MEDS: dexAMETHasone 4 MG/ML Vial 6 MG IV (14:29)
[2023-12-10] MEDS: Rivaroxaban 20 MG Tablet PO (16:46)
[2023-12-10] MEDS: 0.9% Normal Saline (1000mL) 1,000 ML 100 ML IV (16:47)
[2023-12-10] MEDS: 0.9% Saline Lock 10 ML Syringe IV (16:49)
[2023-12-10] MEDS: Metoprolol Tartrate 25 MG Tablet 12.5 MG PO (21:01)
[2023-12-10] MEDS: Atorvastatin Calcium 20 MG Tablet PO (21:01)
[2023-12-10] MEDS: amLODIPine 5 MG Tablet PO (21:02)
[2023-12-11] VITALS (7 sets, daily range): BP systolic 119–144; BP diastolic 65–89; PULSE 61–86; RESP 12–18; TEMP 36.8–37; O2SAT 94–97; BMI 23.3
--- NOTE | 2023-12-11 06:19 | PCM.PN.HOSP ---
Reason for Visit Reason for Visit: Diagnoses COVID-19 (12/10/23) Subjective Subjective Patient with notable improvement from day prior, less coughing fits, heart rate improved with no recurrent RVR. He notes he has not had any dry heaving or any nausea or emesis since. He does note occasional cough but not near as bad as previous. He does still feel weak and fatigued. Pending physical and occupational assessments today. Patient denies fevers, chills, abdominal pain, chest pain. Objective Data Objective Data Vital Signs: Vital Signs Temp Pulse Resp BP Pulse Ox O2 Del Method 98.4 F 73 18 131/89 H 94 Room Air 12/11/23 02:55 12/11/23 02:55 12/11/23 02:55 12/11/23 02:55 12/11/23 02:55 12/11/23 02:55 Oxygen Delivery Method Room Air Weight: 158 lb 8.198 oz Body Mass Index (BMI) 23.3 Intake & Output: Intake and Output for Last 24 Hours 12/09/23 12/10/23 12/11/23 23:59 23:59 23:59 Intake Total 1400 / 1400 1000 / 1000 Output Total 0 / 0 Balance 1400 / 1400 1000 / 1000 Lab / Micro Data 12/11/23 06:57 12/11/23 06:57 Labs: Laboratory Results - last 24 hr 12/10/23 08:24: WBC 15.7 H, RBC 5.44, Hgb 16.4, Hct 49.4, MCV 90.8, MCH 30.1, MCHC 33.2, RDW Std Deviation 45.0 H, RDW Coeff of Lawrence 13.6, Plt Count 142 L, MPV 10.0, Immature Gran % (Auto) 0.500, Neut % (Auto) 84.3 H, Lymph % (Auto) 6.1 L, Ware % (Auto) 8.6, Eos % (Auto) 0.1, Baso % (Auto) 0.4, Absolute Neuts (auto) 13.2 H, Absolute Lymphs (auto) 0.96, Nucleated RBC % 0, ESR 16, D-Dimer Quant (PE/DVT) 0.92 H*, Sodium 141, Potassium 4.0, Chloride 111 H, Carbon Dioxide 24.0, Anion Gap 6, BUN 26 H, Creatinine 1.66 H, Est GFR (MDRD) Af Amer 51 L, Est GFR (MDRD) Non-Af 42 L, BUN/Creatinine Ratio 15.7, Glucose 177 H, Hemoglobin A1c 5.9 H, Calcium 9.0, Magnesium 1.9, Ferritin 122, Total Bilirubin 1.70 H, Direct Bilirubin 0.44 H, AST 31, ALT 33, Alkaline Phosphatase 77, Lactate Dehydrogenase 296 H, Total Creatine Kinase 102, Troponin I High Sens 10, C-React Prot Ext Range 49.00 H, B-Natriuretic Peptide 128.7 H, Total Protein 6.9, Albumin 3.1 L, Globulin 3.8 12/10/23 10:43: Urine Color Yellow, Urine Clarity Clear, Urine pH 5.0, Ur Specific Mccaulley 1.025, Urine Protein 30 H, Urine Glucose (UA) Normal, Urine Ketones 5 H, Urine Occult Blood 10 H, Urine Nitrite Negative, Urine Bilirubin 1 H, Urine Urobilinogen 1 H, Ur Leukocyte Esterase 25 H, Urine RBC 0-5 SEEN, Urine WBC 0 SEEN, Ur Squamous Epith Cells 0 SEEN, Urine Bacteria 0 SEEN, Urine Mucus 3+ 12/10/23 11:10: Procalcitonin 0.17 H Micro: Microbiology 12/10/23 08:24 Mucosa - Nose SARS-CoV-2, Influenza & RSV (PCR) - Final SARS-CoV-2 (COVID 19) Radiography Diagnostic Testing: Radiology Impression Chest X-Ray 12/10/23 08:01 IMPRESSION: Cardiomegaly. Electronically Signed: Cha oLo MD at 9:35 EST , Rhythm Strip Rhythm Strip: A-fib Rate: 123 Ectopy: PVC(s) Physical Exam Narrative Physical Examination: General: Awake, alert, oriented x 3 and cooperative seated upright in the PCU bed, much more appropriate appearing, notes feeling remarkably improved but still extremely weak, currently rate controlled, no severe coughing fits and no further dry heaves since ED assessment. Skin: Normal color, normal turgor, no icterus, no cyanosis except occasional staged ecchymoses. HEENT: AT/NC, EOMI, PERRLA, improved MMM. Lungs: Diminished, greater bases but improved effort, no evidence of tachypnea, no current rales, rhonchi or wheezing. Heart: Improved, regular rate, regular; no gallop, rub audible. Abdomen: Soft, NTTP, ND, normal BS. Extremities: No cyanosis, clubbing, or edema. Neurological: Patient awake, alert, oriented as noted, cognitive function intact; pupils equally reactive to light and accommodation, cranial nerves grossly normal, moving all 4 extremities, no focal deficits, strength improving, moderately globally decreased. Psychiatric: Affect appears fatigued but improved from day prior, no acute evidence of depressive or anxiety feelings. Assessment & Plan Assessment/Plan (1) COVID: PLAN: Plan The patient is an 88 y/o M w/ PMHx: CKD stage III unclear subtype, HTN, HLD, PAF, BPH, Chronic anemia, GERD w/ Hx GI bleed/Santillan;s esophagus, Valvular Heart Disease s/p TAVR, Orthostatic hypotension, Hx CVA w/ vertebral artery stenosis, Carotid disease s/p CEA who presents to the [facility] ED on 12/10/2023 with history of fever, generalized weakness and malaise starting over the last 24 hours with a nonproductive cough but no specific nausea, emesis, diarrhea living at home with his girlfriend initially noted started to feel ill on with a fever up to 102 with difficulty in ambulating secondary to his weakness prompting eventual ED evaluation. 1. Acute Debility, Adult FTT secondary to Acute Viral Syndrome, COVID-19: Initially admitted to the PCU given notable issues with PAF w/ RVR as noted secondary to dry heaving and not having taken AM medications, 12/11/2023 significantly improved, will de-escalate to MS/tele status, maintained on COVID precautions, will maintain on oxygen with wean as tolerated to room air, PRN albuterol, HOB, IS parameters, COVID/inflammatory panel obtained upon admission with D-dimer 0.92 near age-adjusted and continued on Xarelto regimen, ferritin 122, hepatic profile with T. bili 1.70, D bili 0.44, AST/ALT 31/33, alk phos 77, troponin high-sensitivity 10, CRP 49, BNP 128.7, procalcitonin 0.17, continued supportive care, judicious hydration given over lung risk, given oxygenation vacillation in the ED with less than 94% witnessed initiated and continued on IV Decadron x 10 doses, deferred remdesivir is not requiring oxygen. PT/OT/CM consulted for discharge planning, given improvement would plan continued assessment with possible discharge 12/12/2023 if appropriate for home with home therapies but will need to be further assessed prior to decision. 2. Acute Renal Insufficiency on Chronic Kidney Disease Stage III, unclear subtype per previous GFR trending through 2021: Admission BUN/Cr 26/1.66, baseline renal function more recently 1.0-1.3, 12/11/2023 BUN/creatinine 25/1.10, improved, continue to trend. 3. Prediabetes: Initial concern for possible stress response, admission glucose 177, hemoglobin A1c 5.9%, consistent with prediabetes, given steroid usage will transition to ADA diet with Accu-Cheks with insulin sliding scale. Will need repeat outpatient A1c testing following implementation of improved diet and lifestyle changes. 4. PAF with RVR, improved: Related to #1, onset with dry heaves in the ED and had not taken his BB therapy, cardizem 20 mg x 1 being administered in the ED, significant improvement, continue patient home metoprolol regimen, 12/11/2023 no further evidence of tachycardia, will transition to MS telemetry status as noted above, continue home Xarelto regimen. 5. Valvular heart disease: Status post TAVR 08/11/2021, 01/13/2023 echocardiogram with EF 60%, severely enlarged LA, moderately enlarged RA, trivial MVI, TAVR noted to be well-seated and functioning well with no significant stenosis or regurgitation. Encourage continued outpatient follow-up as previously arranged with his cardiology services. 6. History CVA: Patient with history of CVA with vertebral artery stenosis, continue patient home Xarelto regimen, statin, hypertensive regimen as noted, investigating hyperglycemia as noted. PT/OT/case management consulted for discharge planning. 7. Carotid artery disease: Status post left CEA remotely, will continue Xarelto, statin, hypertensive regimen as BP allows. 8. Hypertension: Continue home regimen including metoprolol, clarifying but also appears to be on amlodipine and possibly benazepril, will hold benazepril component given renal insufficiency, PRN hydralazine. 9. Hyperlipidemia: We will continue patient on statin therapy. 10. GERD with history of GI bleed/Santillan's esophagus: We will continue patient on PPI. 11. BPH with unclear obstructive process: Per most recent list noted not on regimen, encourage continued outpatient follow-up as needed. 12. DVT prophylaxis: Continue patient home Xarelto regimen. 13. CODE status: Patient LIVE is his daughter who is present and living will is currently in place. DNR-CCA, no intubation, no pressor therapy, no central line. He is not interested in further COVID vaccination. Charges/Coding Visit Charges Inpatient E&M: 84203 Subs Hosp L2
[2023-12-11 07:31] LABS: Absolute Lymphocyte Count 0.93 X10^3/uL (0.83-4.51); Absolute Neutrophil Count 12.8 X10^3/uL (2.0-7.7); Basophil# 0.03 X10^3/uL; Basophil% 0.2 % (0-1); Hematocrit 45.2 % (40-54); Hemoglobin 14.5 g/dL (13.0-16.5); Lymphocyte # 0.93 X10^3/ul (0.83-4.51); Lymphocyte % 6.3 % (19-41); Mean Corp Hgb Conc 32.1 g/dL (32-36); Mean Corpuscular Hgb 30.2 pg (27.0-32.0); Mean Corpuscular Volume 94.2 fL (80-94); Mean Platelet Vol. 9.9 fl (6.2-12.0); Monocyte# 0.84 X10^3/uL; Monocyte% 5.7 % (0-10); NRBC Flagged by Analyzer 0 % (0-5); Neutrophil # 12.83 X10^3/uL (2.7-7.7); Neutrophil % 87.1 % (47-70); Platelet Count 109 K/mm3 (150-450); RBC Distribution Width CV 13.5 % (11.6-14.6); RBC Distribution Width SD 46.4 fl (35.1-43.9); White Blood Count 14.7 K/mm3 (4.4-11.0)
[2023-12-11 08:07] LABS: ALB/GLOB Ratio 0.7 RATIO (0.9-2.4); AST(SGOT) 42 U/L (15-37); Alanine Aminotransfer ALT/SGPT 38 U/L (16-61); Albumin, Serum 2.8 g/dL (3.2-5.0); Alkaline Phosphatase 66 U/L (45-117); Anion Gap 4 (5-15); BUN 25 mg/dL (7-18); BUN/Creat Ratio 22.7 RATIO (10-20); Calcium,Total 8.6 mg/dL (8.5-10.1); Chloride 112 mmol/L (98-107); EST Glomerular Filtration Rate 67 mL/min (>60); Est Glom Filt Rate - Afr Amer 82 mL/min (>60); Globulin 3.8 g/dL (2.2-4.2); Glucose 134 mg/dL (74-106); Potassium 4.2 mmol/L (3.5-5.1); Protein, Total 6.6 g/dL (6.4-8.2); Sodium Level 139 mmol/L (136-145)
[2023-12-11] MEDS: Metoprolol Tartrate 25 MG Tablet 12.5 MG PO ×2 (09:02→22:02)
[2023-12-11] MEDS: dexAMETHasone 4 MG/ML Vial 6 MG IV (09:02)
[2023-12-11] MEDS: 0.9% Saline Lock 10 ML Syringe IV (09:02)
[2023-12-11] MEDS: Menthol/Lanolin/Calamine/Znox 113 GM Tube 1 APPLIC TOPICAL ×2 (09:03→16:42)
[2023-12-11] MEDS: Pantoprazole Sodium 40 MG Tablet PO (09:03)
[2023-12-11] MEDS: amLODIPine 5 MG Tablet PO (09:03)
[2023-12-11 12:20] LABS: Bedside Glucose 191 mg/dL (74-106)
[2023-12-11] MEDS: Rivaroxaban 20 MG Tablet PO (16:38)
[2023-12-11 17:04] LABS: Bedside Glucose 148 mg/dL (74-106)
[2023-12-11] MEDS: Atorvastatin Calcium 20 MG Tablet PO (22:01)
[2023-12-11 22:47] LABS: Bedside Glucose 193 mg/dL (74-106)
[2023-12-12 01:44] VITALS: BMI 23.6
[2023-12-12 04:00] VITALS: BP 134/73; PULSE 63; RESP 18; TEMP 36.6; O2SAT 96
[2023-12-12 06:42] LABS: Bedside Glucose 114 mg/dL (74-106)
[2023-12-12] MEDS: dexAMETHasone 4 MG/ML Vial 6 MG IV (09:16)
[2023-12-12 09:17] VITALS: PULSE 75
[2023-12-12] MEDS: Metoprolol Tartrate 25 MG Tablet 12.5 MG PO (09:17)
[2023-12-12] MEDS: Pantoprazole Sodium 40 MG Tablet PO (09:17)
[2023-12-12] MEDS: amLODIPine 5 MG Tablet PO (09:18)
[2023-12-12] MEDS: 0.9% Saline Lock 10 ML Syringe IV (09:18)
[2023-12-12 09:21] VITALS: BP 140/65; PULSE 78; RESP 18; TEMP 35.5; O2SAT 96
--- NOTE | 2023-12-12 09:56 | PN.HOSP_ITS ---
Reason for Visit Reason for Visit: Diagnoses COVID-19 (12/10/23) Subjective Subjective Feels well. Objective Data Objective Data Vital Signs: Vital Signs Temp Pulse Resp BP Pulse Ox O2 Del Method 35.5 C L 78 18 140/65 H 96 Room Air 12/12/23 09:21 12/12/23 09:21 12/12/23 09:21 12/12/23 09:21 12/12/23 09:21 12/12/23 09:27 Oxygen Delivery Method Room Air Weight: 72.6 kg Body Mass Index (BMI) 23.6 Intake & Output: Intake and Output for Last 24 Hours 12/10/23 12/11/23 12/12/23 23:59 23:59 23:59 Intake Total 1400 / 1400 1640 / 1640 Output Total 0 / 0 750 / 750 200 / 200 Balance 1400 / 1400 890 / 890 -200 / -200 Lab / Micro Data 12/11/23 06:57 12/11/23 06:57 Labs: Laboratory Results - last 24 hr 12/11/23 11:53: POC Glucose 191 H 12/11/23 16:46: POC Glucose 148 H 12/11/23 22:27: POC Glucose 193 H 12/12/23 06:24: POC Glucose 114 H Micro: Microbiology 12/11/23 15:55 Urine, Clean Catch Streptococcus pneumoniae Antigen (M - Final 12/11/23 15:55 Urine, Clean Catch Legionella Antigen - Final 12/10/23 08:24 Mucosa - Nose SARS-CoV-2, Influenza & RSV (PCR) - Final SARS-CoV-2 (COVID 19) Rhythm Strip Rhythm Strip: A-fib Rate: 123 Ectopy: PVC(s) Physical Exam Const alert and no apparent distress HEENT head/scalp atraumatic Resp normal respiratory effort, no retractions, no use of accessory muscles and clear to auscultation bilaterally Cardio regular rate, regular rhythm, S1 normal heart sound and S2 normal heart sound GI normal to inspection, nondistended, normoactive bowel sounds, soft to palpation, non-tender and non-distended Assessment & Plan Assessment/Plan (1) COVID: PLAN: Plan Acute Debility, Adult FTT * secondary to Acute Viral Syndrome, COVID-19 * PT OT * Pt declining SNF and C. Chronic conditions: * Prediabetes: Initial concern for possible stress response, admission glucose 177, hemoglobin A1c 5.9%, consistent with prediabetes, given steroid usage will transition to ADA diet with Accu-Cheks with insulin sliding scale. Will need repeat outpatient A1c testing following implementation of improved diet and lifestyle changes. * PAF with RVR, improved: Related to #1, onset with dry heaves in the ED and had not taken his BB therapy, cardizem 20 mg x 1 being administered in the ED, significant improvement, continue patient home metoprolol regimen, 12/11/2023 no further evidence of tachycardia, will transition to MS telemetry status as noted above, continue home Xarelto regimen. 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 Encourage continued outpatient follow-up as previously arranged with his cardiology services. * History CVA: Patient with history of CVA with vertebral artery stenosis, continue patient home Xarelto regimen, statin, hypertensive regimen as noted, investigating hyperglycemia as noted. PT/OT/case management consulted for discharge planning. * Carotid artery disease: Status post left CEA remotely, will continue Xarelto, statin, hypertensive regimen as BP allows. * Hypertension: Continue home regimen including metoprolol, clarifying but also appears to be on amlodipine and possibly benazepril, will hold benazepril component given renal insufficiency, PRN hydralazine. * Hyperlipidemia: We will continue patient on statin therapy. 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 * BPH with unclear obstructive process: Per most recent list noted not on adrianne men, encourage continued outpatient follow-up as needed. DVT prophylaxis: Continue patient home Xarelto regimen. CODE status: Patient LIVE is his daughter who is present and living will is currently in place. DNR-CCA, no intubation, no pressor therapy, no central line. He is not interested in further COVID vaccination.
[2023-12-12 12:45] LABS: Bedside Glucose 209 mg/dL (74-106)
--- NOTE | 2023-12-12 14:20 | CASEMGMT ---
ELISHA REYNOLDS Assessment: Face to Face with pt for initial transition planning/care coordination assessment. ELISHA REYNOLDS introduced self and role at [facility], pt voices understanding and consents to assessment. Pt is A&O x4 and answers all questions appropriately at this time. Pt lying in bed on RA in no distress at this time. Care providers, pharmacy, and demographics verified/updated. Admitting Dx: COVID, Adult FTT PCP:Marychuy Specialists:Denies Preferred Pharmacy:[facility] Insurance: [facility] Prescription Benefit: yes LNOK: Latia Han, dtr; Reyna Toney, sig other Living Arrangements: Pt lives with sig other in a single story home with no steps to enter. Pt reports he needs assistance from his sig other for bathing and dressing. Sig other prepares meals and gets groceries. Pt denies concerns at home. Transportation: Pt does not drive. Pt sig other or dtr provides transportation to medical appts. DME:shower chair, walk in shower, FWW HHC/SNF: Denies previous HHC, has been to [facility] Pt states no concerns with going home at time of dc. Discussed how pt did with therapy and the recommendation for further therapy, pt denies. Discussed HHC for this as well as nursing for monitoring and m/s assess, pt declines. Pt is aware if he should change his mind to notify ELISHA REYNOLDS. Pt states no further concerns/needs. CM to follow. Advised pt to ask CM if any further question/concerns/needs arise, voices understanding. Pt Goal: Home Plan: Home Updated ELISHA REYNOLDS
--- NOTE | 2023-12-12 15:34 | DS.PCM_ITS ---
Providers Date of Admission: 12/10/23 Primary Care Physician: Dr. Alex Perrin DO Reason For Visit: COVID, ADULT FTT Diagnosis Discharge Diagnosis (1) COVID: Status: Acute Code(s): U07.1 - COVID-19 Plan Acute Debility, Adult FTT * secondary to Acute Viral Syndrome, COVID-19 * PT OT * Pt declining SNF and C. COVID 19 * Day 0 8, quarantine through the , then wear a mask from the - * no treatment indicated. Chronic conditions: * Prediabetes: Initial concern for possible stress response, admission glucose 177, hemoglobin A1c 5.9%, consistent with prediabetes, given steroid usage will transition to ADA diet with Accu-Cheks with insulin sliding scale. Will need repeat outpatient A1c testing following implementation of improved diet and lifestyle changes. * PAF with RVR, improved: Related to #1, onset with dry heaves in the ED and had not taken his BB therapy, cardizem 20 mg x 1 being administered in the ED, significant improvement, continue patient home metoprolol regimen, 12/11/2023 no further evidence of tachycardia, will transition to MS telemetry status as noted above, continue home Xarelto regimen. 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 Encourage continued outpatient follow-up as previously arranged with his cardiology services. * History CVA: Patient with history of CVA with vertebral artery stenosis, continue patient home Xarelto regimen, statin, hypertensive regimen as noted, investigating hyperglycemia as noted. PT/OT/case management consulted for discharge planning. * Carotid artery disease: Status post left CEA remotely, will continue Xarelto, statin, hypertensive regimen as BP allows. * Hypertension: Continue home regimen including metoprolol, clarifying but also appears to be on amlodipine and possibly benazepril, will hold benazepril component given renal insufficiency, PRN hydralazine. * Hyperlipidemia: We will continue patient on statin therapy. 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 * BPH with unclear obstructive process: Per most recent list noted not on regimen, encourage continued outpatient follow-up as needed. DVT prophylaxis: Continue patient home Xarelto regimen. CODE status: Patient LIVE is his daughter who is present and living will is currently in place. DNR-CCA, no intubation, no pressor therapy, no central line. He is not interested in further COVID vaccination. Medications at Discharge Home Medications simvastatin 40 mg tablet 40 mg PO QPM cholesterol 12/19/17 pantoprazole 40 mg tablet,delayed release 40 mg PO DAILY #30 tabs 12/27/22 metoprolol tartrate 25 mg tablet 12.5 mg PO BID heart 07/11/23 amlodipine 5 mg-benazepril 20 mg capsule 1 cap PO DAILY hypertension 12/10/23 rivaroxaban 20 mg tablet (Xarelto) 20 mg PO DAILY anti platelet 12/10/23 Hospital Course Operations None Procedures None Summary of Care Provided Minutes Spent on Discharge: 32 Weight / BMI Weight Weight: 72.6 kg Body Mass Index (BMI) 23.6 ABG / Lab / Microbiology Data 12/11/23 06:57 12/11/23 06:57 Laboratory: Laboratory Results - last 24 hr 12/11/23 16:46: POC Glucose 148 H 12/11/23 22:27: POC Glucose 193 H 12/12/23 06:24: POC Glucose 114 H 12/12/23 12:26: POC Glucose 209 H Microbiology: Microbiology 12/11/23 15:55 Urine, Clean Catch Streptococcus pneumoniae Antigen (M - Final 12/11/23 15:55 Urine, Clean Catch Legionella Antigen - Final 12/10/23 08:24 Mucosa - Nose SARS-CoV-2, Influenza & RSV (PCR) - Final SARS-CoV-2 (COVID 19) D/C Instructions Discharge Diet: No restrictions Meaningful Use Info Meaningful Use Diagnoses (Choose all that apply): None applicable Discharge Plan Admission Admit Date/Time: 12/10/23 10:51 Primary Reason for Your Visit: COVID 19 Attending Provider: Yash Moreno Primary Care Provider: Alex Perrin Consulting Providers: Alisa Duran Instructions Additional Instructions / Restrictions: You have COVID-19. Please quarantine at home through then from the to the , wear a mask when you go out. Discharge Orders/Prescriptions Prescriptions: Continued simvastatin 40 mg tablet 40 mg PO QPM Xarelto 20 mg tablet 20 mg PO DAILY amlodipine-benazepril 5-20 mg capsule 1 cap PO DAILY Patient Comments: takes at supper pantoprazole 40 mg tablet,delayed release (DR/EC) 40 mg PO DAILY Qty: 30 5RF metoprolol tartrate 25 mg tablet 12.5 mg PO BID Referrals / Follow Up: Alex Perrin DO [Primary Care Provider] - Within 2 Weeks Disposition Disposition (needs filled in before D/C Order can be placed): Home, Self Care Charges/Coding Visit Charges Inpatient E&M: 94238 Disch Hosp >30min
--- NOTE | 2023-12-12 16:20 | PHA.DC.MR.R ---
Pharmacy MS Med Reconciliation Pharmacy Service has performed discharge medication reconciliation for this patient. The patient's discharge medication list was reviewed for discrepancies and discrepancies were resolved. Medications at Discharge Home Medications simvastatin 40 mg tablet 40 mg PO QPM cholesterol 12/19/17 pantoprazole 40 mg tablet,delayed release 40 mg PO DAILY #30 tabs 12/27/22 metoprolol tartrate 25 mg tablet 12.5 mg PO BID heart 07/11/23 amlodipine 5 mg-benazepril 20 mg capsule 1 cap PO DAILY hypertension 12/10/23 rivaroxaban 20 mg tablet (Xarelto) 20 mg PO DAILY anti platelet 12/10/23
--- NOTE | 2023-12-12 16:45 | CASEMGMT ---
Patient has order for discharge. RN CM in to discuss needs at discharge. Patient denies needs or help at discharge and states significant other help. With patient permission RN CM called daughter Latia to update regarding discharge and patient denying HHC at discharge. RN CM updated Latia that should they reconsider need for HHC they can follow-up with PCP. Latia voiced understanding and had no further questions or concerns.
[2023-12-12 17:15] VITALS: BP 156/68; PULSE 78; RESP 18; O2SAT 96
== END 2023-12-12 17:35 | disposition home or self-care (01) | DRG 179 ==
LOC: ED 10:50 → PCU 12:30
PROVIDERS: Admitting Provider Family Medicine; Emergency Provider Emergency Medicine; PCP Student in an Organized Health Care Education/Training Program
DX: U07.1 COVID-19 (principal); R62.7 Adult failure to thrive; I48.0 Paroxysmal atrial fibrillation; E86.0 Dehydration; E78.00 Pure hypercholesterolemia, unspecified; N18.30 Chronic kidney disease, stage 3 unspecified; I12.9 Hypertensive chronic kidney disease with stage 1 through stage 4 chronic kidney disease, or unspecified chronic kidney disease; K21.9 Gastro-esophageal reflux disease without esophagitis; Z95.2 Presence of prosthetic heart valve; R73.03 Prediabetes; N40.0 Benign prostatic hyperplasia without lower urinary tract symptoms; R53.81 Other malaise; Z68.23 Body mass index [BMI] 23.0-23.9, adult; Z66 Do not resuscitate; Z79.01 Long term (current) use of anticoagulants; Z79.899 Other long term (current) drug therapy; Z86.73 Personal history of transient ischemic attack (TIA), and cerebral infarction without residual deficits
CPT/HCPCS: 36415; 71045; 80048; 80053; 80076; 81001; 82550; 82728; 82962; 83036; 83615; 83735; 83880; 84145; 84484; 85025; 85379; 85652; 86140; 87449; 87631; 93005; 94668; 97110; 97116; 97162; 97165; 97530; 97802; 99285; J7030; A4216; J2405

== ENCOUNTER → 2024-05-10 | Outpatient (CLI) | payer MEDICARE, SELFPAY ==
--- NOTE | 2024-05-10 09:08 | ECHOD_ITS ---
Reason For Study: AFIB Procedure This was a 2D Doppler, Color Flow transthoracic echocardiogram. Exam performed in department. Left Ventricle Mild concentric left ventricular hypertrophy. Normal LV size. The left ventricular ejection fraction is 55 %. Unable to assess diastolic dysfunction due to arrhythmia. Right Ventricle Normal right ventricle. Atria There is severe biatrial dilatation. Mitral Valve Mild (1+) mitral valve insufficiency. Tricuspid Valve Mild tricuspid valve insufficiency. Normal pulmonary artery pressure. Aortic Valve Bioprosthetic aortic valve appears to be functioning normally. Trace to mild bioprosthetic aortic valve regurgitation. Pulmonic Valve The pulmonic valve is not well visualized. Great Vessels Normal sized aortic root. Pericardium/Pleural No pericardial effusion. MMode/2D Measurements & Calculations LVIDd: 4.4 cm IVSd: 1.2 cm LVOT diam: 2.0 cm LVIDs: 3.5 cm LVPWd: 1.1 cm LVOT area: 3.3 cm2 RVDd: 4.0 cm FS: 22.1 % Ao root diam: 2.7 cm LAV(MOD-bp): 84.5 ml LVAd ap4: 20.9 cm2 LAV(MOD-bp) Indexed: 45.8 ml/m2 LVLd ap4: 6.4 cm LAV(MOD-sp2): 83.2 ml EDV(MOD-sp4): 57.2 ml LAV(MOD-sp4): 84.4 ml EDV(sp4-el): 58.0 ml LVAs ap4: 15.3 cm2 LVLs ap4: 6.2 cm ESV(MOD-sp4): 33.8 ml ESV(sp4-el): 32.3 ml EF(MOD-sp4): 40.9 % EF(sp4-el): 44.3 % SV(MOD-sp4): 23.4 ml SV(sp4-el): 25.7 ml LA A4 area: 26.2 cm2 LA dimension(2D): 4.2 cm RA A4 area: 23.4 cm2 TAPSE: 1.5 cm Doppler Measurements & Calculations MV E max yovana: 80.7 cm/sec Ao V2 max: 126.5 cm/sec AI max yovana: 347.5 cm/sec Ao max P.5 mmHg AI max P.3 mmHg Ao V2 mean: 92.7 cm/sec Ao mean P.8 mmHg AI dec slope: 100.9 cm/sec2 Ao V2 VTI: 20.5 cm AI P1/2t: 1009 msec AV (velocity ratio): 0.65 GUANACO(I,D): 2.1 cm2 GUANACO(V,D): 1.8 cm2 LV V1 max: 71.1 cm/sec SV(LVOT): 43.6 ml PA V2 max: 50.1 cm/sec LV V1 max P.1 mmHg LV V1 mean P.2 mmHg LV V1 mean: 50.0 cm/sec LV V1 VTI: 13.3 cm TR max yovana: 245.5 cm/sec TR max P.1 mmHg ECHO/Echo Complete Interpretation Summary Mild concentric left ventricular hypertrophy. The left ventricular ejection fraction is 55 %. There is severe biatrial dilatation. Mild (1+) mitral valve insufficiency. Mild tricuspid valve insufficiency. Bioprosthetic aortic valve appears to be functioning normally. Trace to mild bi oprosthetic aortic valve regurgitation. Ordering Physician: Marian Francisco Referring Physician: SEGUN KELLEY Performed By: Dulce Crowell RDCS
--- NOTE | 2024-05-10 09:08 | CDU_ITS ---
Reason For Study: carotid artery disease Rt. Velocities/BP Lt. Velocities/BP Prox CCA 40.9/11.6 cm/sec. Prox CCA 55.1/13.5 cm/sec. Mid CCA 37.1/13.5 cm/sec. Mid CCA 45.6/5.0 cm/sec. Dist CCA 39.0/10.7 cm/sec. Dist CCA 49.4/6.9 cm/sec. Prox ICA 36.2/12.6 cm/sec. Prox ICA 31.9/4.2 cm/sec. Mid ICA 56.0/16.3 cm/sec. Mid ICA 30.4/12.2 cm/sec. Dist ICA 38.3/10.4 cm/sec. Dist ICA 55.0/12.3 cm/sec. Rt. ICA/CCA = 1.5. Lt. ICA/CCA = 1.2. Prox ECA 41.9/6.9 cm/sec. Prox ECA 55.1/4.1 cm/sec. Rt. Vert. 37.1/7.8 cm/sec. Lt. Vert. 28.7/10.2 cm/sec. Right Extracranial There is homogeneous, smooth atherosclerotic plaque noted in the right common carotid artery. There is heterogeneous, irregular atherosclerotic plaque noted in the right internal carotid artery. There is homogeneous, smooth atherosclerotic plaque noted in the right external carotid artery. Antegrade flow is noted in the right vertebral artery. Left Extracranial There is homogeneous, smooth atherosclerotic plaque noted in the left common carotid artery. There is heterogeneous, irregular atherosclerotic plaque noted in the left internal carotid artery. There is heterogeneous, irregular atherosclerotic plaque noted in the left external carotid artery. Antegrade flow is noted in the left vertebral artery. Procedure Carotid Duplex [id number]. This is a Carotid Duplex examination using B-mode, color flow and specral Doppler. The exam was diagnostic. Exam performed in department. VL/Carotid Duplex Ultrasound Interpretation Summary Mild (<50%) stenosis right extracranial internal carotid. Mild (<50%) stenosis left extracranial internal carotid. Patent and antegrade vertebrals bilaterally. Ordering Physician: Marian Francisco Performed By: Gene Hammer RVT
[2024-05-10 11:14] LABS: ALB/GLOB Ratio 0.7 RATIO (0.9-2.4); AST(SGOT) 31 U/L (15-37); Alanine Aminotransfer ALT/SGPT 27 U/L (16-61); Albumin, Serum 3.3 g/dL (3.2-5.0); Alkaline Phosphatase 89 U/L (45-117); Anion Gap 7 (5-15); BUN 18 mg/dL (7-18); BUN/Creat Ratio 13.1 RATIO (10-20); Calcium,Total 9.5 mg/dL (8.5-10.1); Chloride 108 mmol/L (98-107); Cholesterol 145 mg/dL (200); Creatinine, Serum 1.37 mg/dL (0.70-1.30); EST Glomerular Filtration Rate 52 mL/min (>60); Est Glom Filt Rate - Afr Amer 63 mL/min (>60); Globulin 4.5 g/dL (2.2-4.2); Glucose 107 mg/dL (74-106); High Density Lipoprotein 49 mg/dL; Potassium 4.5 mmol/L (3.5-5.1); Protein, Total 7.8 g/dL (6.4-8.2); Sodium Level 142 mmol/L (136-145); Triglycerides 157 mg/dL; Very Low Density Lipoprotein 31 mg/dL (5-40)
== END | disposition home or self-care (01) ==
PROVIDERS: PCP Student in an Organized Health Care Education/Training Program; Referring Provider Internal Medicine Cardiovascular Disease; Visit Provider Internal Medicine Cardiovascular Disease
DX: R42 Dizziness and giddiness (principal); I48.20 Chronic atrial fibrillation, unspecified; I77.9 Disorder of arteries and arterioles, unspecified; I65.29 Occlusion and stenosis of unspecified carotid artery; I25.10 Atherosclerotic heart disease of native coronary artery without angina pectoris; Z86.73 Personal history of transient ischemic attack (TIA), and cerebral infarction without residual deficits; I35.0 Nonrheumatic aortic (valve) stenosis; I10 Essential (primary) hypertension; G47.33 Obstructive sleep apnea (adult) (pediatric); Z98.890 Other specified postprocedural states
CPT/HCPCS: 36415; 80053; 80061; 93306; 93880

== ENCOUNTER → 2025-02-27 | Outpatient (CLI) | payer MEDICARE, SELFPAY ==
[2025-02-27 15:39] LABS: Hematocrit 51.6 % (40-54); Mean Corp Hgb Conc 32.9 g/dL (32-36); Mean Corpuscular Hgb 30.6 pg (27.0-32.0); Mean Platelet Vol. 10.6 fl (6.2-12.0); Platelet Count 190 K/mm3 (150-450); RBC Distribution Width CV 13.5 % (11.6-14.6); RBC Distribution Width SD 46.5 fl (35.1-43.9); Red Blood Count 5.55 M/mm3 (4.6-6.2); White Blood Count 11.2 K/mm3 (4.4-11.0)
[2025-02-27 17:10] LABS: ALB/GLOB Ratio 1.3 RATIO (0.9-2.4); AST(SGOT) 36 U/L (<=37); Alanine Aminotransfer ALT/SGPT 25 U/L (<=46); Alkaline Phosphatase 91 U/L (40-129); Anion Gap 13 (5-15); BUN 20 mg/dL (4-19); BUN/Creat Ratio 15.5 RATIO (10-20); Calcium,Total 9.7 mg/dL (7.6-11.0); Carbon Dioxide 23.9 mmol/L (21.0-32.0); Chloride 108 mmol/L (98-108); Cholesterol 139 mg/dL (<=200); Creatinine, Serum 1.28 mg/dL (0.70-1.20); EST Glomerular Filtration Rate 54 (>60); Globulin 3.1 g/dL (2.2-4.2); Glucose 113 mg/dL (70-99); High Density Lipoprotein 41 mg/dL; Low Density Lipoprotein Calc. 58 mg/dL; Potassium 4.7 mmol/L (3.3-5.1); Sodium Level 145 mmol/L (133-145); Total Bilirubin 0.79 mg/dL (0.00-1.30); Triglycerides 197 mg/dL; Very Low Density Lipoprotein 39 mg/dL (5-40); cholesterol:hdl ratio screen 3.37
== END | disposition home or self-care (01) ==
PROVIDERS: PCP Family Medicine; Referring Provider Family Medicine; Visit Provider Family Medicine
DX: I10 Essential (primary) hypertension (principal); Z86.73 Personal history of transient ischemic attack (TIA), and cerebral infarction without residual deficits
CPT/HCPCS: 36415; 80053; 80061; 85027

== ENCOUNTER → 2025-05-29 | Outpatient (CLI) | payer MEDICARE, SELFPAY ==
--- NOTE | 2025-05-29 13:02 | ECHOD_ITS ---
Reason For Study Reason For Study: AFib/Flutter Procedure This was a 2D Doppler, Color Flow transthoracic echocardiogram. Exam performed in department. Left Ventricle Normal LV size. Mild concentric left ventricular hypertrophy. Overall normal LV systolic function. Estimated LVEF 50- 55%. At least stage I diastolic dysfunction. Right Ventricle Normal right ventricle. Atria There is severe biatrial dilatation. Mitral Valve Mild mitral annular calcification. Trivial mitral valve insufficiency. Tricuspid Valve Mild tricuspid valve insufficiency. Right ventricular systolic pressure estimated to be 34 mmHg. Aortic Valve Stent mounted bioprosthetic aortic valve. Mean peak gradient 7 mmHg. Trace to mild bioprosthetic aortic valve regurgitation. Pulmonic Valve The pulmonic valve is not well visualized. Great Vessels Normal sized aortic root. Pericardium/Pleural No pericardial effusion. MMode/2D Measurements & Calculations LVIDd: 4.3 cm IVSd: 1.2 cm LVOT diam: 2.0 cm LVIDs: 2.8 cm LVPWd: 1.2 cm LVOT area: 3.0 cm2 RVDd: 4.4 cm FS: 35.6 % Ao root diam: 3.3 cm LAV(MOD-bp): 85.3 ml LVAd ap4: 20.4 cm2 LA dimension: 4.8 cm LAV(MOD-bp) Indexed: 46.3 ml/m2 LVLd ap4: 6.3 cm LAV(MOD-sp2): 87.0 ml EDV(MOD-sp4): 56.0 ml LAV(MOD-sp4): 80.8 ml EDV(sp4-el): 55.8 ml LVAs ap4: 13.8 cm2 LVLs ap4: 5.9 cm ESV(MOD-sp4): 29.5 ml ESV(sp4-el): 27.6 ml EF(MOD-sp4): 47.4 % EF(sp4-el): 50.5 % SV(MOD-sp4): 26.5 ml SV(sp4-el): 28.2 ml LA A4 area: 24.9 cm2 SI(MOD-sp4): 14.4 ml/m2 LA dimension(2D): 5.6 cm RA A4 area: 21.2 cm2 TAPSE: 1.3 cm Doppler Measurements & Calculations MV E max yovana: 80.9 cm/sec MV V2 max: 87.2 cm/sec Ao V2 max: 181.4 cm/sec MV max P.1 mmHg Ao max P.3 mmHg MV V2 mean: 46.1 cm/sec Ao V2 mean: 129.7 cm/sec MV mean P.1 mmHg Ao mean P.7 mmHg MV V2 VTI: 19.9 cm Ao V2 VTI: 32.6 cm AV (velocity ratio): 0.48 MVA(VTI): 2.4 cm2 GUANACO(I,D): 1.4 cm2 GUANACO(V,D): 1.4 cm2 AI max yovana: 338.7 cm/sec LV V1 max: 83.4 cm/sec SV(LVOT): 46.9 ml AI max P.0 mmHg LV V1 max P.9 mmHg LV V1 mean P.7 mmHg AI dec slope: 92.2 cm/sec2 LV V1 mean: 59.0 cm/sec AI P1/2t: 1076 msec LV V1 VTI: 15.6 cm TR max yovana: 246.0 cm/sec TR max P.2 mmHg ECHO/Echo Complete Interpretation Summary Mild concentric left ventricular hypertrophy. Overall normal LV systolic function. Estimated LVEF 50-55%. At least stage I di astolic dysfunction. There is severe biatrial dilatation. Mild mitral annular calcification. Mild tricuspid valve insufficiency. Stent mounted bioprosthetic aortic valve. Mean peak gradient 7 mmHg. Trace to m ild bioprosthetic aortic valve regurgitation. Ordering Physician: Marian Francisco Referring Physician: Marian Francisco Performed By: Stefan Powell RCS
--- NOTE | 2025-05-29 13:02 | CDU_ITS ---
Reason For Study Reason For Study: Carotid stenosis Rt. Velocities/BP Lt. Velocities/BP Prox CCA 48.5/8.8 cm/sec. Prox CCA 41.3/6.4 cm/sec. Mid CCA 49.4/11.6 cm/sec. Mid CCA 45.6/10.7 cm/sec. Dist CCA 41.9/10.7 cm/sec. Dist CCA 47.4/9 cm/sec. Prox ICA 35.2/11.6 cm/sec. Prox ICA 43.9/4.6 cm/sec. Mid ICA 53.3/15.1 cm/sec. Mid ICA 57/15.1 cm/sec. Dist ICA 54.7/17.2 cm/sec. Dist ICA 43.9/8.1 cm/sec. Rt. ICA/CCA = 1.11. Lt. ICA/CCA = 1.25. Prox ECA 76.8/9.7 cm/sec. Prox ECA 46.5/3.8 cm/sec. Rt. Vert. 41.3/6.4 cm/sec. Lt. Vert. 36/10.7 cm/sec. Right Extracranial There is homogeneous, smooth atherosclerotic plaque noted in the right common carotid artery. There is heterogeneous, irregular atherosclerotic plaque noted in the right internal carotid artery. There is homogeneous, smooth atherosclerotic plaque noted in the right external carotid artery. Antegrade flow is noted in the right vertebral artery. Left Extracranial There is homogeneous, smooth atherosclerotic plaque noted in the left common carotid artery. There is heterogeneous, irregular atherosclerotic plaque noted in the left internal carotid artery. There is heterogeneous, irregular atherosclerotic plaque noted in the left external carotid artery. Antegrade flow is noted in the left vertebral artery. Procedure Carotid Duplex 49217. This is a Carotid Duplex examination using B-mode, color flow and specral Doppler. Exam performed in department. VL/Carotid Duplex Ultrasound Interpretation Summary Mild (<50%) stenosis right extracranial internal carotid. Mild (<50%) stenosis left extracranial internal carotid. Patent and antegrade vertebrals bilaterally. Ordering Physician: Marian Francisco Referring Physician: Edenilson Lantigua M.D. Performed By: Ronna Mayer RVT
== END | disposition home or self-care (01) ==
PROVIDERS: PCP Family Medicine; Referring Provider Internal Medicine Cardiovascular Disease; Visit Provider Internal Medicine Cardiovascular Disease
DX: I48.21 Permanent atrial fibrillation (principal); I48.92 Unspecified atrial flutter; I65.23 Occlusion and stenosis of bilateral carotid arteries
CPT/HCPCS: 93306; 93880

== ENCOUNTER 2025-09-19 13:11 | Observation (INO) | payer MEDICARE, SELFPAY ==
[2025-09-19] VITALS (7 sets, daily range): BP systolic 101–147; BP diastolic 61–113; PULSE 76–94; RESP 18–28; TEMP 36.4–37.2; O2SAT 95–98; BMI 22.6; BMI 22.1
--- NOTE | 2025-09-19 13:54 | EX.ED.DYSGE1 ---
HPI History of Present Illness Chief Complaint: Weakness Narrative Narrative: Chief complaint and HPI: 89-year-old male with past medical history of atrial fibrillation on Xarelto, CVA, CKD, HTN, GERD, HLD, CAD presents for evaluation of cough and generalized weakness. Patient is not the best historian. Daughter in the room states the patient has had a cough for the past several days. Has had decreased appetite. Generalized weakness with inability to ambulate today secondary to it. She states that she feels that the patient is intermittently confused at times which she states is not uncommon when he becomes ill. Patient did not receive any of his medication this morning. He denies any fever, chills, shortness of breath, chest pain abdominal pain, nausea, vomiting, dysuria. Review of systems: See HPI Medications: As listed on the chart Allergies: As listed on the chart PFSH: Per chart Vital signs: As listed on the chart. Reviewed. Physical exam: Gen: A&O x4, NAD Head: Normocephalic, atraumatic Eyes: No sclera icterus, conjunctiva clear, PERRL, EOMI ENT: TMs clear BL, dry mucous membranes, posterior oropharynx unremarkable, uvula midline Neck: Trachea midline, Full ROM CV: Tachycardic, irregular irregular rhythm, no murmurs, no peripheral edema Resp: Lungs CTA BL, no w/r/c GI: Abd soft, non-distended, non-tender, no r/r/g Musc: Moves all extremities, no deformity Skin: Warm, dry, no rash Neuro: Alert, oriented, grossly intact, sensation intact Psych: Cooperative, appropriate mood and affect [facility] Medical History Carotid artery disease COVID (~12/2023) Pneumonia GI bleed Anemia CVA (cerebral vascular accident) History of mitral valve disorder JUSTIN (obstructive sleep apnea) A-fib Syncope and collapse Atrial fibrillation, permanent Primary malignant neoplasm of skin of scalp Carotid stenosis CVA (cerebral vascular accident) Abnormal CT scan of head Inability to walk Immunization reaction Stiffness due to immobility CKD (chronic kidney disease), stage III Vertebral artery stenosis GERD (gastroesophageal reflux disease) Osteoporosis Atrial fibrillation Hypertension Santillan's esophagus with dysplasia Wears dentures Wears glasses Uses wheelchair Anemia High cholesterol Stroke/cerebrovascular accident History of GI bleed Non-smoker History of transcatheter aortic valve replacement (TAVR) Vomiting Orthostatic hypotension Weakness Abnormal finding on imaging of liver Myocardial infarction Essential hypertension Nonrheumatic aortic (valve) stenosis BPH (benign prostatic hyperplasia) Hyperlipidemia Transient cerebral ischemia Paroxysmal atrial fibrillation Primary malignant neoplasm of skin of scalp Home Medications ?Medication ?Instructions ?Recorded ?Last Taken ?Type metoprolol tartrate 25 mg tablet 12.5 mg (1/2 x 25 mg) PO BID heart 02/27/25 Unknown Rx 90 days #90 tabs pantoprazole 40 mg tablet,delayed 40 mg PO DAILY #90 tabs 02/27/25 Unknown Rx release amlodipine 5 mg-benazepril 20 mg 1 cap PO DAILY #90 caps 04/02/25 Unknown Rx capsule rivaroxaban 20 mg tablet (Xarelto) 20 mg PO DAILY #90 tabs 08/26/25 Unknown Rx simvastatin 40 mg tablet 40 mg PO QPM for cholesterol #90 09/02/25 Unknown Rx TABLETS Allergy/AdvReac Type Severity Reaction Status Date / Time terazosin Allergy lower Verified 09/12/25 15:32 blood pressure Family History Mother Hypertension Father Hypertension CVA (cerebral vascular accident) Sister Hypertension Brother Cancer Heart disease CVA (cerebral vascular accident) Dementia Surgical History S/P TAVR (transcatheter aortic valve replacement) S/P TAVR (transcatheter aortic valve replacement) History of cardiac catheterization History of endarterectomy History of hernia repair Social History adopted: No household members: significant other number of children: 2 current occupational status: retired pets and animals: No Smoking Status: Never smoker alcohol intake: current alcohol intake frequency: holidays/special occasions only details: occasional substance use type: does not use caffeine: Yes (3-4) Type: tea frequency: does not exercise do you feel safe at home: Yes EXAM Physical Exam Const Vital Signs: 09/19/25 13:12 09/19/25 13:21 09/19/25 15:00 Temperature 98 F Temperature Source Oral Pulse Rate 94 80 Respiratory Rate 26 H 28 H Respiratory Effort Short of Breath Labored Respiratory Pattern Tachypnea Blood Pressure 147/113 H 127/83 H Blood Pressure Mean 124 97 Pulse Ox 98 98 Oxygen Delivery Method Room Air MDM MDM MDM Narrative Medical decision making narrative: 89-year-old male with past medical history of atrial fibrillation on Xarelto, CVA, CKD, HTN, GERD, HLD, CAD presents for evaluation of cough and generalized weakness. Patient is not the best historian. Daughter in the room states the patient has had a cough for the past several days. Has had decreased appetite. Generalized weakness with inability to ambulate today secondary to it. She states that she feels that the patient is intermittently confused at times which she states is not uncommon when he becomes ill. Patient did not receive any of his medication this morning. On presentation, patient in no acute distress. Currently alert and oriented x 4. He is in atrial fibrillation with intermittent RVR. Patient did not take his metoprolol today. Small NS bolus and metoprolol PO ordered. Will monitor heart rate. Differential diagnosis includes but is not limited to pneumonia, viral illness, ACS, CHF, electrolyte abnormality, dehydration, UTI. Patient started having dry heaves prior to oral metoprolol. Therefore we will hold off on oral metoprolol at this time and instead do IV. On chart review, patient had an echocardiogram on 05/29/2025. EF is 55%. Patient's tachycardia has resolved with metoprolol. Still in A-fib but patient is chronically in A-fib. CBC with a leukocytosis of 20. Hemoconcentration of 17.2. Platelets unremarkable. CMP shows baseline renal insufficiency of 1.25. No transaminitis. Patient does have hyperbilirubinemia of 1.88 however this has been elevated in the past. Patient not endorsing any abdominal pain. Abdominal exam is benign. Troponin unremarkable. BMP unremarkable. Magnesium level unremarkable. COVID, flu, RSV negative. UA is negative for UTI. At this point in time, no clear etiology to explain patient's leukocytosis. May be viral. Given his intermittent confusion and generalized weakness, patient will warrant admission for continued care. I spoke with the hospitalist service who accepted admission. Agrees on holding off on antibiotics at this time. EKG: Interpreted by me/EM physician: EKG shows A-fib with RVR. Right bundle branch block. Heart rate 119. Nonspecific ST changes Diagnostic: Interpreted by me/EM physician: Chest x-ray without pneumonia, effusion, pneumothorax. Mild cardiomegaly. Radiology in agreement. Impression: 1. Atrial fibrillation with RVR, now rate controlled 2. Leukocytosis of unknown origin 3. Generalized weakness 4. Intermittent confusion Lab Data Labs: Laboratory Results - last 24 hr 09/19/25 09/19/25 09/19/25 13:00 14:09 14:32 WBC 20.0 H RBC 5.62 Hgb 17.2 H Hct 50.9 MCV 90.6 MCH 30.6 MCHC 33.8 RDW Std Deviation 44.8 H RDW Coeff of [place] 13.4 Plt Count 176 MPV 10.6 Immature Gran % (Auto) 0.500 Neut % (Auto) 84.0 H Lymph % (Auto) 7.7 L [place] % (Auto) 7.3 Eos % (Auto) 0.1 Baso % (Auto) 0.4 Absolute Neuts (auto) 16.8 H Absolute Lymphs (auto) 1.53 Nucleated RBC % 0 PT Cancelled Cancelled Cancelled INR Cancelled Cancelled Cancelled APTT Cancelled Cancelled Cancelled Sodium 140 Potassium 4.1 Chloride 104 Carbon Dioxide 21.3 Anion Gap 15 BUN 18 Creatinine 1.24 H Estim Creat Clear Calc 40.54 L Est GFR (MDRD) Non-Af 56 L BUN/Creatinine Ratio 14.5 Glucose 149 H Calcium 9.4 Magnesium 1.9 Total Bilirubin 1.88 H AST 29 ALT 17 Alkaline Phosphatase 87 Troponin T High Sens 18 NT pro BNP II 1019 Total Protein 7.5 Albumin 3.9 Globulin 3.6 Albumin/Globulin Ratio 1.1 Urine Color Urine Clarity Urine pH Ur Specific [place] Urine Protein Urine Glucose (UA) Urine Ketones Urine Occult Blood Urine Nitrite Urine Bilirubin Urine Urobilinogen Ur Leukocyte Esterase Urine RBC Urine WBC Ur Squamous Epith Cells Urine Bacteria Urine Mucus 09/19/25 09/19/25 15:05 15:15 WBC RBC Hgb Hct MCV MCH MCHC RDW Std Deviation RDW Coeff of [place] Plt Count MPV Immature Gran % (Auto) Neut % (Auto) Lymph % (Auto) [place] % (Auto) Eos % (Auto) Baso % (Auto) Absolute Neuts (auto) Absolute Lymphs (auto) Nucleated RBC % PT 24.0 H INR 2.1 APTT 36.9 H Sodium Potassium Chloride Carbon Dioxide Anion Gap BUN Creatinine Estim Creat Clear Calc Est GFR (MDRD) Non-Af BUN/Creatinine Ratio Glucose Calcium Magnesium Total Bilirubin AST ALT Alkaline Phosphatase Troponin T High Sens NT pro BNP II Total Protein Albumin Globulin Albumin/Globulin Ratio Urine Color Yellow Urine Clarity Clear Urine pH 5.0 Ur Specific [place] 1.020 Urine Protein 100 H Urine Glucose (UA) Normal Urine Ketones 5 H Urine Occult Blood 25 H Urine Nitrite Negative Urine Bilirubin Negative Urine Urobilinogen Normal Ur Leukocyte Esterase Negative Urine RBC 0-5 SEEN Urine WBC 0-5 SEEN Ur Squamous Epith Cells 0 SEEN Urine Bacteria 0 SEEN Urine Mucus 0 SEEN Radiography Diagnostic Testing: Clinical Impression(s) from Imaging Studies Chest X-Ray 09/19/25 14:13 IMPRESSION: Mild cardiomegaly. No acute abnormality is seen. Reading Location: [id number] Discharge Plan Triage Chief Complaint: Weakness ED Provider: Stefan Rosa Dx/Rx/DC Orders Prescriptions: No Action pantoprazole 40 mg tablet,delayed release (DR/EC) 40 mg PO DAILY Qty: 90 2RF metoprolol tartrate 25 mg tablet 12.5 mg PO BID 90 Days Qty: 90 3RF amlodipine-benazepril 5-20 mg capsule 1 cap PO DAILY Qty: 90 3RF Xarelto 20 mg tablet 20 mg PO DAILY Qty: 90 3RF simvastatin 40 mg tablet 40 mg PO QPM Qty: 90 0RF Primary Care Provider: Emery Lantigua Referrals: Emery Lantigua, [Primary Care Provider, Internal Medicine] Print Language: [place]
[2025-09-19 13:56] LABS: Hematocrit 50.9 % (40-54); Hemoglobin 17.2 g/dL (13.0-16.5); Immature Granulocytes Count 0.090 X10^3/uL (0.0-0.0); Mean Corp Hgb Conc 33.8 g/dL (32-36); Mean Corpuscular Volume 90.6 fL (80-94); Mean Platelet Vol. 10.6 fl (6.2-12.0); NRBC Flagged by Analyzer 0 % (0-5); Platelet Count 176 K/mm3 (150-450); RBC Distribution Width CV 13.4 % (11.6-14.6); RBC Distribution Width SD 44.8 fl (35.1-43.9); Red Blood Count 5.62 M/mm3 (4.6-6.2); White Blood Count 20.0 K/mm3 (4.4-11.0)
[2025-09-19] MEDS: 0.9% Normal Saline (500mL Bag) 500 ML 1000 ML IV (14:04)
[2025-09-19 14:11] LABS: Troponin T High Sensitivity 18 ng/L (<=22)
--- NOTE | 2025-09-19 14:13 | RAD_ITS ---
PROCEDURE: CHEST PA AND LATERAL 09/19/2025 REASON FOR EXAM: COUGH TECHNIQUE: Procedure Code: RADCXR Modality: DX Procedure: CHEST PA AND LATERAL COMPARISON: December 10, 2023. FINDINGS: Hardware: EKG electrodes. Mitral valve prosthesis. Heart: Cardiomegaly. Mediastinum: Atherosclerotic calcification of the aortic arch. Calcified bilateral hilar lymph nodes. Lungs: Stable examination. No acute abnormality is seen. Bones: Degenerative changes are identified within the thoracic spine. Degenerative changes of both shoulder joints. RAD/Chest PA and Lateral IMPRESSION: Mild cardiomegaly. No acute abnormality is seen. Reading Location: [id number]
[2025-09-19 14:31] LABS: AST(SGOT) 29 U/L (<=37); Alanine Aminotransfer ALT/SGPT 17 U/L (<=46); Albumin, Serum 3.9 g/dL (3.4-4.8); Alkaline Phosphatase 87 U/L (40-129); Anion Gap 15 (5-15); BUN 18 mg/dL (4-19); BUN/Creat Ratio 14.5 RATIO (10-20); Calcium,Total 9.4 mg/dL (7.6-11.0); Carbon Dioxide 21.3 mmol/L (21.0-32.0); Chloride 104 mmol/L (98-108); Estimated Creatinine Clearance 40.54 ml/min (50-250); Globulin 3.6 g/dL (2.2-4.2); Glucose 149 mg/dL (70-99); Magnesium 1.9 mg/dL (1.5-2.2); Potassium 4.1 mmol/L (3.3-5.1); Pro- Brain NATRIURETIC PEPTIDE 1019 pg/mL (<=1800)
[2025-09-19 15:20] LABS: Mucous, Urine 0 SEEN /hpf (<or=2+); Squamous Epithelial Cells - UA 0 SEEN /hpf (0-5)
[2025-09-19 15:36] LABS: Prothrombin Time (Protime)PT. 24.0 SECONDS (11.7-14.9)
[2025-09-19 15:37] LABS: Partial Thromboplast Time 36.9 Seconds (24.1-36.2)
[2025-09-19 15:49] LABS: Color, Urine Yellow (Yellow); Glucose, Dipstick Normal (Normal); Ketone-Dipstick 5 mg/dl (Negative); Leukocyte Esterase-Dipstick Negative /ul (Negative); Nitrite-Dipstick Negative (Negative); Occult Blood-Urine 25 /ul (Negative); Protein-Dipstick 100 mg/dl (Negative); Specific Gravity, Urine 1.020 (1.002-1.030); Urine Bilirubin Dipstick Negative (Negative)
[2025-09-19 15:51] LABS: Red Blood Cells-Urine 0-5 SEEN /hpf (0-5)
--- NOTE | 2025-09-19 16:00 | PCM.HP.STD ---
HPI - General General Date of Admission: 09/19/25 Date of Service: 09/19/25 Chief Complaint: URI symptoms with weakness and difficulty ambulating HPI Narrative SHREE MARCUM, is a 89 M who presented to [facility] ED on 09/19/2025 with URI symptoms with weakness and difficulty ambulating. Medical history significant for permanent A-fib on Xarelto, severe s/p TAVR in 2020, hypertension, hyperlipidemia and GERD. Patient lives at home with his girlfriend. Daughter lives nearby and was in the ED with him today. Patient has history of weakness and difficulty ambulating with viral upper respiratory infections in the past. He has had a cough with some congestion for the past several days along with decreased p.o. intake, and he now has become more weak over the past few days and has had difficulty ambulating. In the ED he had mild A-fib with RVR with heart rate to 110s, was otherwise normotensive, afebrile and stable on room air at rest. Labs notable for WBC count 20.0 with neutrophil predominance. Chest x-ray with mild cardiomegaly, otherwise benign. COVID/flu/RSV negative. Given his weakness and difficulty ambulating in setting of suspected viral URI, hospitalist was contacted for admission. I saw the patient at bedside in the ED, daughter was present. Patient was mildly fatigued appearing but otherwise sitting back fairly comfortably in bed, answering questions appropriately, in no acute distress. He did have an intermittent dry cough during our encounter. Denies any fevers or chills. No other acute concerns currently. Will be admitted for further management. [facility] Medical History (Updated 09/19/25 @ 18:[address] Dominick Stokes, DO) Carotid artery disease COVID (~12/2023) Pneumonia GI bleed Anemia CVA (cerebral vascular accident) History of mitral valve disorder JUSTIN (obstructive sleep apnea) A-fib Syncope and collapse Atrial fibrillation, permanent Primary malignant neoplasm of skin of scalp Carotid stenosis CVA (cerebral vascular accident) Abnormal CT scan of head Inability to walk Immunization reaction Stiffness due to immobility CKD (chronic kidney disease), stage III Vertebral artery stenosis GERD (gastroesophageal reflux disease) Osteoporosis Atrial fibrillation Hypertension Santillan's esophagus with dysplasia Wears dentures Wears glasses Uses wheelchair Anemia High cholesterol Stroke/cerebrovascular accident History of GI bleed Non-smoker History of transcatheter aortic valve replacement (TAVR) Vomiting Orthostatic hypotension Weakness Abnormal finding on imaging of liver Myocardial infarction Essential hypertension Nonrheumatic aortic (valve) stenosis BPH (benign prostatic hyperplasia) Hyperlipidemia Transient cerebral ischemia Paroxysmal atrial fibrillation Primary malignant neoplasm of skin of scalp Home Medications ?Medication ?Instructions ?Recorded ?Last Taken ?Type metoprolol tartrate 25 mg tablet 12.5 mg (1/2 x 25 mg) PO BID heart 02/27/25 09/18/25 Rx 90 days #90 tabs pantoprazole 40 mg tablet,delayed 40 mg PO DAILY #90 tabs 02/27/25 09/18/25 Rx release amlodipine 5 mg-benazepril 20 mg 1 cap PO DAILY #90 caps 04/02/25 09/18/25 Rx capsule rivaroxaban 20 mg tablet (Xarelto) 20 mg PO DAILY #90 tabs 08/26/25 09/18/25 Rx simvastatin 40 mg tablet 40 mg PO QPM for cholesterol #90 09/02/25 09/18/25 Rx TABLETS Allergy/AdvReac Type Severity Reaction Status Date / Time terazosin Allergy lower Verified 09/12/25 15:32 blood pressure Family History Mother Hypertension Father Hypertension CVA (cerebral vascular accident) Sister Hypertension Brother Cancer Heart disease CVA (cerebral vascular accident) Dementia Surgical History S/P TAVR (transcatheter aortic valve replacement) S/P TAVR (transcatheter aortic valve replacement) History of cardiac catheterization History of endarterectomy History of hernia repair Social History adopted: No household members: significant other number of children: 2 current occupational status: retired pets and animals: No Smoking Status: Never smoker alcohol intake: current alcohol intake frequency: holidays/special occasions only details: occasional substance use type: does not use caffeine: Yes (3-4) Type: tea frequency: does not exercise do you feel safe at home: Yes ROS Constitutional Constitutional: Reports fatigue and weakness; Denies chills or fever(s) Eyes Eyes: Denies change in vision Cardiovascular Cardiovascular: Reports dyspnea on exertion; Denies chest pain, edema, lightheadedness or orthopnea Respiratory/Chest Respiratory/Chest: Reports cough; Denies productive cough, shortness of breath at rest or wheezing Gastrointestinal Gastrointestinal: Denies abdominal pain, constipation, diarrhea, nausea or vomiting Genitourinary Genitourinary: Denies dysuria Musculoskeletal Musculoskeletal: Denies arthralgias or myalgias Neurologic Neurologic: Denies dizziness, focal weakness, headache(s), numbness or tingling Vital Signs Vital Signs Vital Signs: 09/19/25 13:12 09/19/25 13:21 09/19/25 15:00 Temperature 98 F Temperature Source Oral Pulse Rate 94 80 Respiratory Rate 26 H 28 H Respiratory Effort Short of Breath Labored Respiratory Pattern Tachypnea Blood Pressure 147/113 H 127/83 H Blood Pressure Mean 124 97 Pulse Ox 98 98 Oxygen Delivery Method Room Air Weight Weight: 69.6 kg Body Mass Index (BMI) 22.6 Physical Exam Const alert, oriented x3, no apparent distress and average body habitus Constitutional Narrative: Elderly male, mildly fatigued appearing, otherwise sitting back comfortably in bed, answering questions appropriately, in no acute distress. General Appearance: cooperative and comfortable HEENT normocephalic, head/scalp atraumatic, hearing grossly normal bilaterally, nasal mucous membranes and turbinates normal and moist oral mucous membranes Eyes PERRL, EOMs intact bilaterally and conjunctivae normal Neck full ROM Chest inspection of chest normal Resp normal respiratory effort, normal air movement, no use of accessory muscles and clear to auscultation bilaterally Cardio no murmurs and peripheral pulses 2+ throughout Cardio Narrative: A-fib, rate controlled. GI normal to inspection, nondistended, normoactive bowel sounds, soft to palpation, non-tender and non-distended Back/Spine normal ROM Extremity normal to inspection, full ROM and no pedal edema Skin no rashes or lesions noted Neuro moves all extremities and no focal motor deficits Neuro Narrative: Generalized weakness in his lower extremities noted. Psych mental status grossly normal Results Lab / Micro Data 09/19/25 13:00 09/19/25 13:00 Labs: Laboratory Results - last 24 hr 09/19/25 13:00: WBC 20.0 H, RBC 5.62, Hgb 17.2 H, Hct 50.9, MCV 90.6, MCH 30.6, MCHC 33.8, RDW Std Deviation 44.8 H, RDW Coeff of [place] 13.4, Plt Count 176, MPV 10.6, Immature Gran % (Auto) 0.500, Neut % (Auto) 84.0 H, Lymph % (Auto) 7.7 L, [place] % (Auto) 7.3, Eos % (Auto) 0.1, Baso % (Auto) 0.4, Absolute Neuts (auto) 16.8 H, Absolute Lymphs (auto) 1.53, Nucleated RBC % 0, PT Cancelled, INR Cancelled, APTT Cancelled, Sodium 140, Potassium 4.1, Chloride 104, Carbon Dioxide 21.3, Anion Gap 15, BUN 18, Creatinine 1.24 H, Estim Creat Clear Calc 40.54 L, Est GFR (MDRD) Non-Af 56 L, BUN/Creatinine Ratio 14.5, Glucose 149 H, Calcium 9.4, Magnesium 1.9, Total Bilirubin 1.88 H, AST 29, ALT 17, Alkaline Phosphatase 87, Troponin T High Sens 18, NT pro BNP II 1019, Total Protein 7.5, Albumin 3.9, Globulin 3.6, Albumin/Globulin Ratio 1.1 09/19/25 14:09: PT Cancelled, INR Cancelled, APTT Cancelled 09/19/25 14:32: PT Cancelled, INR Cancelled, APTT Cancelled 09/19/25 15:05: PT 24.0 H, INR 2.1, APTT 36.9 H 09/19/25 15:15: Urine Color Yellow, Urine Clarity Clear, Urine pH 5.0, Ur Specific [place] 1.020, Urine Protein 100 H, Urine Glucose (UA) Normal, Urine Ketones 5 H, Urine Occult Blood 25 H, Urine Nitrite Negative, Urine Bilirubin Negative, Urine Urobilinogen Normal, Ur Leukocyte Esterase Negative, Urine RBC 0-5 SEEN, Urine WBC 0-5 SEEN, Ur Squamous Epith Cells 0 SEEN, Urine Bacteria 0 SEEN, Urine Mucus 0 SEEN Micro: Microbiology 09/19/25 14:10 Mucosa - Nose SARS-CoV-2, Influenza & RSV (PCR) - Final Imaging Radiology Impression Chest X-Ray 09/19/25 14:13 IMPRESSION: Mild cardiomegaly. No acute abnormality is seen. Reading Location: [facility] Assessment & Plan Assessment/Plan (1) URI (upper respiratory infection): (2) Weakness: PLAN: Plan Patient is an 89-year-old male who presented to [facility] ED on 09/19/2025 with URI symptoms and weakness with difficulty ambulating. 1. Acute on chronic debility and difficulty with ambulation ? Admit under observation status to [facility]. PT/OT/case management consulted. Patient lives at home with his girlfriend, daughter lives nearby. Has had episodes in the past of weakness and difficulty with ambulation with viral URI. Appreciate therapy recommendations. 2. URI symptoms ? Patient with dry cough and congestion for several days prior to admission. WBC count 20,000. Chest x-ray with mild cardiomegaly, no other concerning findings. COVID/flu/RSV negative. Respiratory PCR panel pending. Procalcitonin mildly elevated at 0.28. Higher concern is for viral URI but given his symptoms and leukocytosis, will treat with IV azithromycin and ceftriaxone for now. 3. Permanent A-fib on Xarelto, hypertension, hyperlipidemia, history of s/p TAVR ? Follows with cardiology. Had mild A-fib with RVR with rate to the 110s to low 120s in the ED that improved with IV fluids and a dose of IV Lopressor. Continue home Xarelto, statin and p.o. Lopressor. Will hold amlodipine-benazepril for now, restart as able. 4. GERD ? Continue home PPI. DVT prophylaxis: Not indicated, on Xarelto CODE STATUS: DNR CCA, DNI Expected disposition: SNF versus home with home health care, 1 to 2 days Total clinical time spent by myself addressing the patient's medical issues, reviewing all the data, and collaborating with patient's care team: 76 minutes. Charges/Coding Visit Charges Inpatient E&M: 97698 Init Hosp L3
[2025-09-19 16:40] LABS: Procalcitonin 0.28 ng/mL (<=0.10)
[2025-09-19] MEDS: 0.9% Saline Lock 10 ML Syringe IV (17:01)
[2025-09-19] MEDS: Lactated Ringers 1,000 ML 125 ML IV (17:01)
[2025-09-19] MEDS: Azithromycin 500 MG in 0.9% Normal Saline (250mL Bag) 250 ML 250 MG IV (18:53)
--- OUTSIDE RECORDS SUMMARY | 2025-09-19 19:09 | XMS RPT_ITS | CCD ---
Author Organization [facility] CliniSynm Care Team Providers Care Thresher Broomcorn Name Role Phone Jono Vásquez Primary Care Provider [phone] NICO TRIM STENCIL [employer] [place] Primary Care Physician None, No PCP Unavailable Unavailable Nico CLOTHING CUTTER, CLOTHING CUTTER-C Ute Primary Care Provider 1([phone] Nico CLOTHING CUTTER, CLOTHING CUTTER-C Ute Referring Provider Dr. Heriberto Sanchez Attending Provider Dr. Alex Kelley Primary Care Provider [phone] Dr. Barry Walton Emergency Provider Dr. Kath Erickson Admit Provider Dr. Kath Erickson Attending Provider Dr. Kath Erickson Other Provider Dr. Andie Cruz Attending Provider Dr. Kath Erickson Referring Provider Dr. Yash Moreno Attending Provider Dr. Yash Moreno Other Provider ODELL Daily Attending Provider Dr. Yash Morocho Attending Provider DR ALEX KELLEY DO Primary Care Physician [phone] Dr. Alex Kelley Primary Care Provider [phone] ODELL Mercedes Referring Provider Dr. Alex Kelley Primary Care Provider [phone] Dr. Miquel Ruggiero Emergency Provider Dr. Alisa Duran Admit Provider Dr. Alisa Duran Attending Provider Dr. Alisa Duran Other Provider Dr. Yash Moreno Attending Provider Dr. Yash Moreno Other Provider FRANKAR DO, DR JOHNSON Attending Unavailable ROMAR DO, DR JOHNSON Primary Care Unavailable ROMAR DO, DR JOHNSON Attending Unavailable ROMAR DO, DR JOHNSON Primary Care Unavailable ROMAR DO, DR JOHNSON Attending Unavailable ROMAR DO, DR JOHNSON Primary Care Unavailable ROMAR DO, DR JOHNSON Attending Unavailable ROMAR DO, DR JOHNSON Primary Care Unavailable ROMAR DO, DR JOHNSON Attending Unavailable ROMAR DO, DR JOHNSON Primary Care Unavailable Romar DO, Dr. Johnson Primary Care Provider Romyasmin DO, Dr. Johnson Referring Provider 1([facility])- 2014 Grzegorz HUERTA, Dr. Emery Crenshaw Attending Provider Grzegorz HUERTA, Dr. Emery Crenshaw Primary Care Provider Grzegorz HUERTA, Dr. Emery Crenshaw Referring Provider Nolan BENJAMIN, Dr. Fonseca Attending Provider Nolan BENJAMIN, Dr. Fonseca Referring Provider Rashawn BENJAMIN, Dr. Berrios Attending Provider Brown, Emery R Primary Care Unavailable Brown, Emery R Attending Unavailable Brown, Emery R Referring Unavailable Romar, Alex Referring Unavailable Romar, Alex Primary Care Unavailable Brown, Emery R Attending Unavailable Romar, Alex Referring Unavailable Romar, Alex Primary Care Unavailable [facility] CLOTHING CUTTER, Pradeep Fortune Attending Unavailable Romar, Alex Referring Unavailable Brown, Emery R Attending Unavailable Romar, Alex Primary Care Unavailable NolanMarian Referring Unavailable Brown, Emery R Primary Care Unavailable Yash Morocho Attending Unavailable Brown, Emery R Primary Care Unavailable NolanMarian Attending Unavailable Romar, Alex Primary Care Unavailable Brown, Emery R Attending Unavailable Romar, Alex Referring Unavailable NolanMarian Attending Unavailable Brown, Emery R Primary Care Unavailable Romar, Alex Referring Unavailable NolanMarian Referring Unavailable mEery Connors Primary Care Unavailable Marian Francisco Attending Unavailable Allergies Allergy Classification Reported Allergen(s) Allergy Type Date of Onset Reaction(s) Facility (13 sources) Terazosin; Translations: [terazosin] Drug Allergy 1 lower blood pressure [facility] [place] (1 source) Terazosin Drug Allergy 5 [facility] Rep[facility] Medications Current Medications Medication Drug Class(es) Dates Sig (Normalized) Sig (Original) aspirin 81 mg delayed release oral tablet (20 sources) Platelet Aggregation Inhibitor, Nonsteroidal Anti-inflammatory Drug Start: 02-23-2023 aspirin 81 mg oral delayed release tablet Dose : 81 mg = 1 tab(s), Oral, qDay, do not crush or chew, # 90 tab(s), 1 Refill(s), Pharmacy: [facility], 172, cm, 02/23/23 13:59:00 EDT, Height Start Date: 02/23/23 Status: Ordered Start: 01-14-2023 End: 07-11-2023 take 1 tablet by mouth at breakfast Aspirin 81 mg Tablet,Chewable Discontinued 81 mg PO WITH BREAKFAST 0 0 January 14, 2023 12:00am July 11, 2023 11:52am Start: 06-26-2021 aspirin 81 mg oral delayed release tablet Dose : 81 mg = 1 tab(s), Oral, Daily, 0 Refill(s) Start Date: 06/26/21 Status: Ordered Start: 04-10-2021 End: 10-15-2021 Aspirin (Adult Low Dose Aspi rin) 81 mg tablet,delayed release (DR/EC) Discontinued 81 mg PO DAILY April 10, 2021 12:00am October 15, 2021 12:23pm Start: 12-19-2017 End: 09-08-2018 take 1 tablet by mouth once daily Aspirin 81 mg tablet,delayed release (DR/EC) Discontinued 81 mg PO daily 0 December 19, 2017 1:00am September 08, 2018 2:26pm metoprolol tartrate 25 mg oral tablet (20 sources) beta-Adrenergic Slime Start: 02-06-2025 End: 02-27-2025 Metoprolol Tartrate 25 mg tablet Active 12.5 mg PO TWICE A DAY 90 90 3 February 27, 2025 1:43pm heart Start: 01-17-2024 End: 08-04-2024 metoprolol tartrate 25 mg or al tablet Dose : 12.5 mg = 0.5 tab(s), Oral, BID, # 100 tab(s), 1 Refill(s), Pharmacy: [facility], 171, cm, 12/16/23 13:27:00 EST, Height, kg, 12/16/23 13:08:00 EST, Dosing Weight Start Date: 01/17/24 Stop Date: 08/04/24 Status: Ordered Start: 07-11-2023 End: 10-21-2024 Metoprolol Tartrate 25 mg ta blet Discontinued 12.5 mg PO TWICE A DAY 90 90 0 July 23, 2024 11:50am October 20, 2024 1:00am October 21, 2024 1:10am heart Start: 07-11-2023 take 12.5 mg by mout h twice daily Metoprolol Tartrate Active 12.5 MG PO TWICE A DAY July 11, 2023 10:32am Start: 04-19-2023 End: 10-16-2023 metoprolol tartrate 25 mg or al tablet Dose : 12.5 mg = 0.5 tab(s), Oral, BID, # 90 tab(s), 1 Refill(s), other reason (Rx) Start Date: 04/19/23 Stop Date: 10/16/23 Status: Ordered Start: 01-12-2023 End: 01-18-2023 take 1 tablet by mouth once daily Metoprolol Tartrate 25 mg tablet Discontinued 25 mg PO DAILY January 13, 2023 12:00am January 18, 2023 11:38am BLOOD PRESSURE Start: 11-29-2018 End: 07-11-2023 take 1 tablet by mouth twice daily Metoprolol Tartrate 25 mg tablet Discontinued 25 mg PO TWICE A DAY November 29, 2018 10:36am July 11, 2023 11:32am Start: 11-22-2018 End: 11-29-2018 take 1 tablet by mouth once daily Metoprolol Tartrate 25 mg tablet Discontinued 25 mg PO DAILY November 22, 2018 1:00am November 29, 2018 10:36am Start: 12-21-2017 End: 11-22-2018 Metoprolol Tartrate 50 mg ta blet Discontinued 25 mg PO daily December 21, 2017 3:26pm November 22, 2018 3:54pm Start: 12-21-2017 End: 11-22-2018 take 25 mg by mouth once daily Metoprolol Tartrate Dis continued 25 MG PO daily December 21, 2017 2:26pm November 22, 2018 2:54pm Start: 12-19-2017 End: 12-21-2017 take 1 tablet by mouth once daily Metoprolol Tartrate 50 mg tablet Discontinued 50 mg PO daily December 19, 2017 1:00am December 21, 2017 3:28pm Comment on above: Take 25 mg by mouth twice daily. sulfamethoxazole 800 mg / trimethoprim 160 mg oral tablet (2 sources) Dihydrofolate Reductase Inhibitor Antibacterial, Sulfonamide Antimicrobial Start: 02-24-20 End: 03-02-20 take 1 tablet by mouth every twelve hours sulfamethoxazole -trimethoprim 800 mg-160 mg oral tablet Dose = 1 tab(s), Oral, q12h, drink plenty of fluids, X 7 day(s), # 14 tab(s), 0 Refill(s), Pharmacy: [id number], 172, cm, 02/23/23 13:59:00 EDT, Height, 71.3 Start Date: 02/23/23 Stop Date: 03/02/23 Status: Ordered Vitamin D3 50 mcg (2000 intl units) oral tablet (2 sources) Start: 02-24-20 Vitamin D3 50 mcg (2000 intl units) oral tablet Dose : 2,000 unit(s) = 1 tab(s), Oral, Daily, with food, # 30 tab(s), 0 Refill(s), other reason (Rx) Start Date: 02/23/23 Status: Ordered Completed/Discontinued Medications Medication Drug Class(es) Dates Sig (Normalized) Sig (Original) alendronic acid 35 mg oral tablet (20 sources) Bisphosphonate Start: 03-28-2019 End: 12-10-2023 Alendronate 35 mg tablet Discontinued 35 mg PO SA January 13, 2023 12:00am January 18, 2023 11:35am OSTEOPEROSIS Start: 12-19-2017 End: 09-08-2018 take 1 tablet by mouth every week Alendronate 35 mg tablet Discontinued 35 mg PO EVERY WEEK December 19, 2017 1:00am September 08, 2018 2:27pm Comment on above: Take 35 mg by mouth one time a week. amLODIPine 5 mg / atorvastatin 20 mg oral tablet (8 sources) Dihydropyridine Calcium Channel Slime, HMG-CoA Reductase Inhibitor Start: 03-02-2022 End: 05-24-2022 Amlodipine-Atorvastatin 5-20 mg tablet Discontinued 1 {tbl} PO DAILY March 02, 2022 12:00am May 24, 2022 2:41pm Start: 03-02-2022 End: 05-24-2022 take 1 tablet by mouth once daily Amlodipine-Atorvastatin Discontinued 1 TABLET PO DAILY March 01, 2022 11:00pm May 24, 2022 1:41pm amLODIPine 5 mg / benazepril hydrochloride 20 mg oral capsule (20 sources) Dihydropyridine Calcium Channel Slime, Angiotensin Converting Enzyme Inhibitor Start: 01-13-2023 End: 01-18-2023 Amlodipine-Benazepril 5-20 mg capsule Discontinued 1 NMA PO WITH DINNER January 13, 2023 12:00am January 18, 2023 11:35am BLOOD PRESSURE Start: 01-13-2023 End: 01-18-2023 take 1 capsule by mouth at dinner Amlodipine-Benazepril Discontinued 1 CAP PO WITH DINNER January 12, 2023 11:00pm January 18, 2023 10:35am Start: 05-24-2022 End: 04-02-2025 Amlodipine-Benazepril 5-20 m g capsule Discontinued 1 NMA PO DAILY January 22, 2025 11:21am April 02, 2025 8:28am Start: 05-24-2022 End: 01-12-2023 take 2 capsules by mouth once daily Amlodipine-Benazepril Discontinued 2 CAP PO DAILY May 23, 2022 11:00pm January 12, 2023 12:41pm Start: 05-24-2022 End: 12-10-2023 take 1 capsule by mouth once daily Amlodipine-Benazepril Discontinued 1 CAP PO DAILY January 18, 2023 10:36am December 10, 2023 10:41am Start: 10-29-2021 End: 03-02-2022 Amlodipine-Benazepril Discon tinued 0 .ROUTE .COMPLEX 90 February 26, 2022 2:27pm March 02, 2022 1:37pm TAKE 1 CAPSULE EVERY DAY Start: 06-26-2020 End: 01-12-2023 Amlodipine-Benazepril 2.5-10 mg capsule Discontinued 0 .ROUTE .COMPLEX 90 3 February 26, 2022 3:27pm March 02, 2022 2:37pm TAKE 1 CAPSULE EVERY DAY Start: 06-26-2020 End: 10-18-2021 take 1 capsule by mouth once daily Amlodipine-Benazepril Discontinued 1 CAP PO DAILY February 26, 2021 4:00pm October 18, 2021 2:57pm Start: 08-28-2019 End: 06-26-2020 Amlodipine-Benazepril 5-10 m g capsule Discontinued 1 NMA PO DAILY June 16, 2020 3:54pm June 26, 2020 10:14am Start: 08-28-2019 End: 06-26-2020 take 1 capsule by mouth once daily Amlodipine-Benazepril Discontinued 1 CAP PO DAILY June 16, 2020 2:54pm June 26, 2020 9:14am Start: 12-19-2017 End: 08-28-2019 Amlodipine-Benazepril 10-20 mg capsule Discontinued 1 NMA PO daily December 19, 2017 1:00am August 28, 2019 2:59pm Start: 12-19-2017 End: 08-28-2019 take 1 capsule by mouth once daily Amlodipine-Benazepril Discontinued 1 CAP PO daily December 19, 2017 12:00am August 28, 2019 1:59pm Comment on above: Take 1 capsule by [facility] once daily. hydroCHLOROthiazide 25 mg oral tablet (16 sources) Thiazide Diuretic Start: 2017 End: 2017 take 1 tablet by mouth once daily in the morning Hydrochlorothiazide 25 mg tablet Discontinued 25 mg PO EVERY MORNING December 21, 2017 1:00am September 08, 2018 2:26pm Start: 12-19-2017 End: 12-19-2017 take 1 tablet by mouth once daily in the morning Hydrochlorothiazide 25 mg tablet Discontinued 25 mg PO EVERY MORNING December 19, 2017 1:00am December 19, 2017 10:52am midodrine hydrochloride 2.5 mg oral tablet (8 sources) alpha-Adrenergic Agonist Start: 10-18-2021 End: 11-26-2021 take 1 tablet by mouth once daily at bedtime Midodrine 2.5 mg tablet Discontinued 2.5 mg PO TWICE A DAY 60 0 October 18, 2021 1:00am November 26, 2021 2:48pm do not give last dose of day after 6PM or within 4 hrs of bedtime Szuxkhhe-Cbg-Xk-Lyc open-Lutein (Centrum Silver) 0.4-300-250 mg-mcg-mcg tablet (8 sources) Start: 12-19-2017 End: 09-08-2018 Tfeydvzh-Mmp-Mb-L ycopen-Lutein (Centrum Silver) 0.4-300-250 mg-mcg-mcg tablet Discontinued 1 {tbl} PO daily December 19, 2017 1:00am September 08, 2018 2:27pm Start: 12-19-2017 End: 09-08-2018 take 1 tablet by mouth once daily Bnmyfrra-Yff-Ax-Lycopen-Lutein (Centrum Silver) 0.4-300-250 mg-mcg-mcg tablet Discontinued 1 TABLET PO daily December 19, 2017 12:00am September 08, 2018 1:27pm Start: 12-19-2017 End: 09-08-2018 take 1 tablet by mouth once daily Cwnaiorf-Rdw-Gf-Lycopen-Lutein (Centrum Silver) 0.4-300-250 mg-mcg-mcg tablet Discontinued 1 TABLET PO daily December 19, 2017 1:00am September 08, 2018 2:27pm Gazelle-3 Fatty Acids (Fish Oil Concentrate) 1,000 mg capsule (8 sources) Start: 12-21-2017 End: 09-08-2018 take 1 capsule by mouth once daily Gazelle-3 Fatty Acids (Fish Oil Concentrate) 1,000 mg capsule Discontinued 1000 mg PO daily December 21, 2017 1:00am September 08, 2018 2:27pm Start: 12-21-2017 End: 09-08-2018 take 1 capsule by mouth once daily Gazelle-3 Fatty Acids (Fish Oil Concentrate) 1,000 mg capsule Discontinued 1000 MG PO daily December 21, 2017 12:00am September 08, 2018 1:27pm Start: 12-21-2017 End: 09-08-2018 take 1 capsule by mouth once daily Gazelle-3 Fatty Acids (Fish Oil Concentrate) 1,000 mg capsule Discontinued 1000 MG PO daily December 21, 2017 1:00am September 08, 2018 2:27pm pantoprazole 40 mg delayed release oral tablet (20 sources) Proton Pump Inhibitor Start: 01-05-2022 End: 02-27-2025 take 1 tablet by mouth once daily Pantoprazole 40 mg tablet,delayed release (DR/EC) Discontinued 40 mg PO DAILY 90 0 January 22, 2025 11:21am February 27, 2025 1:44pm Start: 10-15-2021 End: 07-19-2022 take 1 tablet by mouth twice daily Pantoprazole 40 mg tablet,delayed release (DR/EC) Discontinued 40 mg PO TWICE A DAY 60 5 February 25, 2022 7:39am July 19, 2022 2:40pm rivaroxaban 20 mg oral tablet (20 sources) Factor Xa Inhibitor Start: 12-19-2017 End: 11-05-2024 take 1 tablet by mouth once daily Rivaroxaban (Xarelto) 20 mg tablet Discontinued 20 mg PO DAILY 90 3 January 12, 2024 12:58pm November 05, 2024 1:08pm Comment on above: Take 20 mg by mouth daily with dinner. simvastatin 40 mg oral tablet (20 sources) HMG-CoA Reductase Inhibitor Start: 12-19-2017 End: 02-27-2025 take 1 tablet by mouth once daily in the evening Simvastatin 40 mg tablet Discontinued 40 mg PO EVERY EVENING 90 0 January 22, 2025 11:21am February 27, 2025 1:44pm cholesterol Comment on above: Take 40 mg by mouth daily at bedtime. terazosin 5 mg oral capsule (8 sources) alpha-Adrenergic Slime Start: 12-19-2017 End: 10-17-2019 take 1 capsule by mouth once daily Terazosin 5 mg capsule Discontinued 5 mg PO daily December 19, 2017 1:00am October 17, 2019 11:43am Problems Active Problems Problem Classification Problem Date Documented Date Episodic/Chronic Acute cerebrovascular disease (20 sources) Cerebrovascular accident; Translations: [Cerebral infarction, unspecified] 10-18-2021 Chronic Cardiac dysrhythmias (20 sources) Permanent atrial fibrillation ; Translations: [Wide QRS ventricular tachycardia] Onset: 0 06-08-2020 Chronic Chronic kidney disease (3 sources) Chronic kidney disease stage 3A 02-27-2023 Chronic Conditions associated with dizziness or vertigo (6 sources) Postural dizziness; Translations: [Postural lightheadedness] Onset: 0 06-08-2020 Episodic Deficiency and other anemia (8 sources) Anemia; Translations: [Anemia, unspecified] 10-27-2021 Episodic Diseases of white blood cells (1 source) Leukocytosis 04-19-2023 Chronic Disorders of lipid metabolism (20 sources) Pure hypercholesterolemia; Translations: [Pure hypercholesterolemia, unspecified] Onset: 1 Chronic E Codes: Adverse effects of medical drugs (8 sources) Vaccines adverse reaction; Translations: [Adverse effect of other vaccines and biological substances, initial encounter] 01-17-2023 Episodic Esophageal disorders (10 sources) Barretts esophagus with high grade dysplasia; Translations: [Santillan's esophagus] Onset: 4 11-26-2021 Chronic Essential hypertension (20 sources) Essential hypertension; Translations: [Essential (primary) hypertension] Onset: 1 Chronic Fluid and electrolyte disorders (7 sources) Dehydration; Translations: [Dehydration] 12-10-2023 Episodic Gastrointestinal hemorrhage (16 sources) Gastrointestinal hemorrhage; Translations: [Gastrointestinal hemorrhage, unspecified] 10-27-2021 Episodic Heart valve disorders (20 sources) Aortic stenosis, non-rheumatic ; Translations: [Nonrheumatic aortic (valve) stenosis] Onset: 0 06-08-2020 Chronic Comment on above: 08/11/2021- Dio 26 mm S3 valve, Dr. Lavinia STANLEY at [facility] on 08/11/2021; 08/11/21- [facility] Hyperplasia of prostate (10 sources) Benign prostatic hypertrophy without outflow obstruction; Translations: [Benign prostatic hyperplasia without lower urinary tract symptoms] Onset: 1 Chronic Malaise and fatigue (7 sources) Asthenia; Translations: [Weakness] 12-10-2023 Episodic Mycoses (1 source) Onychomycosis of toenails 07-12-2023 Episodic Nutritional deficiencies (5 sources) Vitamin D deficiency 02-23-2023 Chronic Occlusion or stenosis of precerebral arteries (20 sources) Carotid artery occlusion; Translations: [Carotid artery stenosis] Onset: 6 03-22-2006 Chronic Comment on above: CTA 01/13/23 revealed no significant extracranial carotid artery stenosis bilaterally, mild-mod intracranial carotid artery stenosis bilaterally CTA 01/13/23 revealed right vertebral artery severely stenosed or occluded through the neck and occluded at V4 segment, dominant left vertebral artery without stenosisBrain CT 01/13/23: hypodense ischemic infarct in R anterior putamen, adjacent R subinsular white matter, and R anterior internal capsule age indeterminate. MRI 01/13/23: chronic ischemic changes bilateral cerebellar hemispheres, worse on right with tiny focus of acute ischemia in left cerebellar hemisphere; moderate periventricular white matter chronic ischemic changes. Osteoporosis (7 sources) Osteoporosis 05-11-2019 Chronic Other aftercare (6 sources) Long-term current use of anticoagulant; Translations: [Current use of intermediate manager anticoagulation] Onset: 0 06-08-2020 Episodic Other aftercare (2 sources) Post-discharge follow-up 08-13-2021 Episodic Other bone disease and musculoskeletal deformities (6 sources) Osteopenia 05-11-2019 Episodic Other circulatory disease (5 sources) Disorder of carotid artery; Translations: [Disorder of arteries and arterioles, unspecified] 10-17-2024 Chronic Other circulatory disease (1 source) Disorder of arteries and arterioles, unspecified; Translations: [Disorder of arteries and arterioles, unspecified] Onset: 4 Chronic Other circulatory disease (8 sources) History of transient ischemic attack; Translations: [Personal history of transient ischemic attack (TIA), and cerebral infarction without residual deficits] Onset: 1 Episodic Other circulatory disease (5 sources) Orthostatic hypotension 11-09-2021 Episodic Other circulatory disease (8 sources) H/O: heart disorder; Translations: [Personal history of other diseases of the circulatory system] 05-06-2021 Episodic Other circulatory disease (11 sources) History of cerebrovascular accident; Translations: [Personal history of transient ischemic attack (TIA), and cerebral infarction without residual deficits] 02-27-2023 Episodic Other circulatory disease (1 source) Personal history of transient ischemic attack (TIA), and cerebral infarction without residual deficits; Translations: [Personal history of transient ischemic attack (TIA), and cerebral infarction without residual deficits] Onset: 5 Episodic Other diseases of veins and lymphatics (3 sources) Calcified lymph nodes 02-27-2023 Chronic Other gastrointestinal disorders (4 sources) History of gastrointestinal bleed 01-12-2023 Episodic Other hematologic conditions (2 sources) Erythrocytosis 02-23-2023 Episodic Other hematologic conditions (4 sources) Hyperglobulinemia 02-23-2023 Episodic Other liver diseases (2 sources) Steatosis of liver 04-19-2023 Chronic Other nervous system disorders (13 sources) Unable to walk; Translations: [Difficulty in walking, not elsewhere classified] 01-17-2023 Chronic Other nervous system disorders (2 sources) Difficulty in walking, not elsewhere classified; Translations: [Difficulty in walking] 12-10-2023 Chronic Other non-epithelial cancer of skin (16 sources) Primary malignant neoplasm of skin of scalp; Translations: [Unspecified malignant neoplasm of skin of scalp and neck] 10-27-2021 Episodic Other non-traumatic joint disorders (8 sources) Immobility stiffness; Translations: [Stiffness of unspecified joint, not elsewhere classified] 01-17-2023 Episodic Other nutritional; endocrine; and metabolic disorders (4 sources) Hyperbilirubinemia 02-23-2023 Chronic Other screening for suspected conditions (not mental disorders or infectious disease) (2 sources) Imaging of thorax abnormal 04-19-2023 Chronic Other screening for suspected conditions (not mental disorders or infectious disease) (17 sources) Raised prostate specific antigen; Translations: [CT of head abnormal] 05-11-2019 Episodic Other upper respiratory disease (4 sources) Mucocele of maxillary sinus 02-23-2023 Episodic Pneumonia (except that caused by tuberculosis or sexually transmitted disease) (10 sources) Pneumonia; Translations: [Pneumonia, unspecified organism] 11-27-2019 Episodic Pulmonary heart disease (3 sources) Pulmonary hypertension 02-27-2023 Chronic Residual codes; unclassified (8 sources) Obstructive sleep apnea syndrome; Translations: [Obstructive sleep apnea (adult) (pediatric)] 11-27-2019 Chronic Residual codes; unclassified (3 sources) Immunization due 12-05-2019 Episodic Residual codes; unclassified (8 sources) History of cardiovascular surgery; Translations: [Other specified postprocedural states] 01-26-2023 Episodic Comment on above: Per patient report, history left carotid endarterectomy 20 years ago Residual codes; unclassified (4 sources) Peripheral edema 01-16-2023 Episodic Residual codes; unclassified (1 source) Not for resuscitation 07-12-2023 Episodic Residual codes; unclassified (6 sources) At risk of disease; Translations: [At risk for stroke] Onset: 0 06-08-2020 Spondylosis; intervertebral disc disorders; other back problems (5 sources) Degeneration of intervertebral disc 11-09-2021 Chronic Syncope (15 sources) Near syncope; Translations: [Syncope and collapse] 05-14-2019 Episodic Transient cerebral ischemia (15 sources) Transient cerebral ischemia; Translations: [Cerebral ischemia] 03-02-2017 Chronic Unclassified (4 sources) Patient encounter status 12-05-2019 Unclassified (7 sources) Severe aortic valve stenosis 06-29-2021 Unclassified (2 sources) Glomerular filtration rate decreased 02-23-2023 Unclassified (1 source) Permanent atrial fibrillation; Translations: [Permanent atrial fibrillation] Onset: 5 Unclassified (1 source) Chronic atrial fibrillation, unspecified; Translations: [Chronic atrial fibrillation, unspecified] Onset: 4 Viral infection (1 source) Disease caused by 2018-nCoV 12-16-2023 Past or Other Problems Problem Classification Problem Date Documented Date Episodic/Chronic Genitourinary symptoms and ill-defined conditions (6 sources) Blood in urine; Translations: [Hematuria, unspecified] Onset: 02-23-2023 02-23-2023 Episodic Immunizations and screening for infectious disease (1 source) Encounter for immunization; Translations: [Encounter for immunization] Onset: 07-26-2024 Episodic Residual codes; unclassified (5 sources) Other specified postprocedural states; Translations: [Personal history of surgery to other organs] Onset: 07-26-2024 01-14-2023 Episodic Viral infection (7 sources) Disease caused by nCoV; Translations: [COVID-19] Onset: 10-31-2023 12-10-2023 Episodic Results Test Name Value Interpretation Reference Range Facility Carotid Duplex Ultrasoundon 05-29-2025 Carotid Duplex Ultrasound [facility] [place] [address] Carotid Duplex Ultrasound 05/29/25 1338 MR#: [id number] Acct: [id number] Name: SHREE MARCUM Rep #: [id number] : [id number] From: Yash Morocho MD Attending Dr: Dr. Marian Francisco MD Status: REG CLI Ordering Dr: Marian Francisco MD Date: 05/29/25 Location: [facility] Sex: M C Admitted: Reason For Study Reason For Study: Carotid stenosis Rt. Velocities/BP Lt. Velocities/BP Prox CCA 48.5/8.8 cm/sec. Prox CCA 41.3/6.4 cm/sec. Mid CCA 49.4/11.6 cm/sec. Mid CCA 45.6/10.7 cm/sec. Dist CCA 41.9/10.7 cm/sec. Dist CCA 47.4/9 cm/sec. Prox ICA 35.2/11.6 cm/sec. Prox ICA 43.9/4.6 cm/sec. Mid ICA 53.3/15.1 cm/sec. Mid ICA 57/15.1 cm/sec. Dist ICA 54.7/17.2 cm/sec. Dist ICA 43.9/8.1 cm/sec. Rt. ICA/CCA = 1.11. Lt. ICA/CCA = 1.25. Prox ECA 76.8/9.7 cm/sec. Prox ECA 46.5/3.8 cm/sec. Rt. Vert. 41.3/6.4 cm/sec. Lt. Vert. 36/10.7 cm/sec. Right Extracranial There is homogeneous, smooth atherosclerotic plaque noted in the right common carotid artery. There is heterogeneous, irregular atherosclerotic plaque noted in the right internal carotid artery. There is homogeneous, smooth atherosclerotic plaque noted in the right external carotid artery. Antegrade flow is noted in the right vertebral artery. Left Extracranial There is homogeneous, smooth atherosclerotic plaque noted in the left common carotid artery. There is heterogeneous, irregular atherosclerotic plaque noted in the left internal carotid artery. There is heterogeneous, irregular atherosclerotic plaque noted in the left external carotid artery. Antegrade flow is noted in the left vertebral artery. Procedure Carotid Duplex 01704. This is a Carotid Duplex examination using B-mode, color flow and specral Doppler. Exam performed in department. VL/Carotid Duplex Ultrasound Interpretation Summary Mild (<50%) stenosis right extracranial internal carotid. Mild (<50%) stenosis left extracranial internal carotid. Patent and antegrade vertebrals bilaterally. Ordering Physician: Marian Francisco Referring Physician: Edenilson Connors M.D. Performed By: Ronna Mayer T 05/29/251838 Date Yash Morocho MD CC: Dr. Marian Francisco MD; Dr. Emery Connors DO Date Dictated: 05/29/258 Date Transcribed: 05/29/251838 Assistant Professor Of Sociology: Signed Normal [facility] Duplex ultrasound of carotid artery reportOrdered By: Yash Morocho on 05-29-2025 Study report [facility] [address] [place] [address] Carotid Duplex Ultrasound 05/29/251337 MR#: [id number] Acct: [id number] Name: SHREE MARCUM Rep #:[id number] : 1935 89 From: Yash Burnett Attending Dr: Dr. Marian Francisco MD Status: REG CLI Ordering Dr: Marian Francisco MD Date: Location: [facility] Sex: M C Admitted: Reason For Study Reason For Study: Carotid stenosis Rt. Velocities/BP Lt. Velocities/BP Prox CCA 48.5/8.8 cm/sec. Prox CCA 41.3/6.4 cm/sec. Mid CCA 49.4/11.6 cm/sec. Mid CCA 45.6/10.7 cm/sec. Dist CCA 41.9/10.7 cm/sec. Dist CCA 47.4/9 cm/sec. Prox ICA 35.2/11.6 cm/sec. Prox ICA 43.9/4.6 cm/sec. Mid ICA 53.3/15.1 cm/sec. Mid ICA 57/15.1 cm/sec. Dist ICA 54.7/17.2 cm/sec. Dist ICA 43.9/8.1 cm/sec. Rt. ICA/CCA = 1.11. Lt. ICA/CCA = 1.25. Prox ECA 76.8/9.7 cm/sec. Prox ECA 46.5/3.8 cm/sec. Rt. Vert. 41.3/6.4 cm/sec. Lt. Vert. 36/10.7 cm/sec. Right Extracranial There is homogeneous, smooth atherosclerotic plaque noted in the right common carotid artery. There is heterogeneous, irregular atherosclerotic plaque noted in the right internal carotid artery. There is homogeneous, smooth atherosclerotic plaque noted in the right external carotid artery. Antegrade flow is noted in the right vertebral artery. Left Extracranial There is homogeneous, smooth atherosclerotic plaque noted in the left common carotid artery. There is heterogeneous, irregular atherosclerotic plaque noted in the left internal carotid artery. There is heterogeneous, irregular atherosclerotic plaque noted in the left external carotid artery. Antegrade flowis noted in the left vertebral artery. Procedure Carotid Duplex 77597. This is a Carotid Duplex examination using B-mode, color flow and specral Doppler. Exam performed in department. VL/Carotid Duplex Ultrasound Interpretation Summary Mild (<50%) stenosis right extracranial internal carotid. Mild (<50%) stenosis left extracranial internal carotid. Patent and antegrade vertebrals bilaterally. Ordering Physician: Marian Francisco Referring Physician: Edenilson Connors M.D. Performed By: Ronna Mayer RVT 05/29/25 1839 Date _ Yash Morocho MD CC: Dr. Marian Francisco MD; Dr. Emery Connors, DO ~ Date Dictated: 05/29/25 1338 Date Transcribed: 05/29/25 1839 Assistant Professor Of Sociology: Signed [facility] Work Phone: Echo Completeon 05-29-2025 Echo Complete [facility] [address] [place] [address] Echo Complete 05/29/25 1302 MR#: [id number] Acct: [id number] Name: SHREE MARCUM Rep #: [id number] : 1935 89 From: Marian Francisco MD Attending Dr: Dr. Marian Francisco MD Status: REG CLI Ordering Dr: Marian Francisco MD Date: 05/29/25 Location: [facility] Sex: M C Admitted: Reason For Study Reason For Study: AFib/Flutter Procedure This was a 2D Doppler, Color Flow transthoracic echocardiogram. Exam performed in department. Left Ventricle Normal LV size. Mild concentric left ventricular hypertrophy. Overall normal LV systolic function. Estimated LVEF 50- 55%. At least stage I diastolic dysfunction. Right Ventricle Normal right ventricle. Atria There is severe biatrial dilatation. Mitral Valve Mild mitral annular calcification. Trivial mitral valve insufficiency. Tricuspid Valve Mild tricuspid valve insufficiency. Right ventricular systolic pressure estimated to be 34 mmHg. Aortic Valve Stent mounted bioprosthetic aortic valve. Mean peak gradient 7 mmHg. Trace to mild bioprosthetic aortic valve regurgitation. Pulmonic Valve The pulmonic valve is not well visualized. Great Vessels Normal sized aortic root. Pericardium/Pleural No pericardial effusion. MMode/2D Measurements Calculations LVIDd: 4.3 cm IVSd: 1.2 cm LVOT diam: 2.0 cm LVIDs: 2.8 cm LVPWd: 1.2 cm LVOT area: 3.0 cm2 RVDd: 4.4 cm FS: 35.6 % Ao root diam: 3.3 cm LAV(MOD-bp): 85.3 ml LVAd ap4: 20.4 cm2 LA dimension: 4.8 cm LAV(MOD-bp) Indexed: 46.3 ml/m2 LVLd ap4: 6.3 cm LAV(MOD-sp2): 87.0 ml EDV(MOD-sp4): 56.0 ml LAV(MOD-sp4): 80.8 ml EDV(sp4-el): 55.8 ml LVAs ap4: 13.8 cm2 LVLs ap4: 5.9 cm ESV(MOD-sp4): 29.5 ml ESV(sp4-el): 27.6 ml EF(MOD-sp4): 47.4 % EF(sp4-el): 50.5 % SV(MOD-sp4): 26.5 ml SV(sp4-el): 28.2 ml LA A4 area: 24.9 cm2 SI(MOD-sp4): 14.4 ml/m2 LA dimension(2D): 5.6 cm RA A4 area: 21.2 cm2 TAPSE: 1.3 cm Doppler Measurements Calculations MV E max yovana: 80.9 cm/sec MV V2 max: 87.2 cm/sec Ao V2 max: 181.4 cm/sec MV max P.1 mmHg Ao max P.3 mmHg MV V2 mean: 46.1 cm/sec Ao V2 mean: 129.7 cm/sec MV mean P.1 mmHg Ao mean P.7 mmHg MV V2 VTI: 19.9 cm Ao V2 VTI: 32.6 cm AV (velocity ratio): 0.48 MVA(VTI): 2.4 cm2 GUANACO(I,D): 1.4 cm2 GUANACO(V,D): 1.4 cm2 AI max yovana: 338.7 cm/sec LV V1 max: 83.4 cm/sec SV(LVOT): 46.9 ml AI max P.0 mmHg LV V1 max P.9 mmHg LV V1 mean P.7 mmHg AI dec slope: 92.2 cm/sec2 LV V1 mean: 59.0 cm/sec AI P1/2t: 1076 msec LV V1 VTI: 15.6 cm TR max yovana: 246.0 cm/sec TR max P.2 mmHg ECHO/Echo Complete Interpretation Summary Mild concentric left ventricular hypertrophy. Overall normal LV systolic function. Estimated LVEF 50-55%. At least stage I diastolic dysfunction. There is severe biatrial dilatation. Mild mitral annular calcification. Mild tricuspid valve insufficiency. Stent mounted bioprosthetic aortic valve. Mean peak gradient 7 mmHg. Trace to mild bioprosthetic aortic valve regurgitation. Ordering Physician: Marian Francisco Referring Physician: Marian Francisco Performed By: Stefan Powell RCS 05/29/25 1415 Date Marian Francisco MD CC: Dr. Marian Francisco MD; Dr. Emery Connors DO Date Dictated: 05/29/25 1302 Date Transcribed: 05/29/251414 Assistant Professor Of Sociology: Signed Normal [facility] Echocardiogram study reportO rdered By: Marian Francisco on 05-29-2025 Study report [facility] [address] [place] [address] Echo Complete 05/29/25 1302 MR#: [id number] Acct: [id number] Name: SHREE MARCUM Rep #:[id number] : 1935 89 From: Marian Francisco MD Attending Dr: Dr. Marian Francisco MD Status: REG CLI Ordering Dr: Marian Francisco MD Date: Location: [facility] Sex: M C Admitted: Reason For Study Reason For Study: AFib/Flutter Procedure This was a 2D Doppler, Color Flow transthoracic echocardiogram. Exam performed in department. Left Ventricle Normal LV size. Mild concentric left ventricular hypertrophy. Overall normal LV systolic function. Estimated LVEF 50- 55%. At least stage I diastolic dysfunction. Right Ventricle Normal right ventricle. Atria There is severe biatrial dilatation. Mitral Valve Mild mitral annular calcification. Trivial mitral valve insufficiency. Tricuspid Valve Mild tricuspid valve insufficiency. Right ventricular systolic pressure estimated to be 34 mmHg. Aortic Valve Stent mounted bioprosthetic aortic valve. Mean peak gradient 7 mmHg. Trace to mild bioprosthetic aortic valve regurgitation. Pulmonic Valve The pulmonic valve is not well visualized. Great Vessels Normal sized aortic root. Pericardium/Pleural No pericardial effusion. MMode/2D Measurements & Calculations LVIDd: 4.3 cm IVSd: 1.2 cm LVOT diam: 2.0 cm LVIDs: 2.8 cm LVPWd: 1.2 cm LVOT area: 3.0 cm2 RVDd: 4.4 cm FS: 35.6 % Ao root diam: 3.3 cm LAV(MOD-bp): 85.3 ml LVAd ap4: 20.4 cm2 LA dimension: 4.8 cm LAV(MOD-bp) Indexed: 46.3 ml/m2 LVLd ap4: 6.3 cm LAV(MOD-sp2): 87.0 ml EDV(MOD-sp4): 56.0 ml LAV(MOD-sp4): 80.8 ml EDV(sp4-el): 55.8 ml LVAs ap4: 13.8 cm2 LVLs ap4: 5.9 cm ESV(MOD-sp4): 29.5 ml ESV(sp4-el): 27.6 ml EF(MOD-sp4): 47.4 % EF(sp4-el): 50.5 % SV(MOD-sp4): 26.5 ml SV(sp4-el): 28.2 ml LA A4 area: 24.9 cm2 SI(MOD-sp4): 14.4 ml/m2 LA dimension(2D): 5.6 cm RA A4 area: 21.2 cm2 TAPSE: 1.3 cm Doppler Measurements & Calculations MV E max yovana: 80.9 cm/sec MV V2 max: 87.2 cm/sec AoV2 max: 181.4 cm/sec MV max P.1 mmHg Aomax P.3 mmHg MV V2 mean: 46.1 cm/sec AoV2 mean: 129.7 cm/sec MV mean P.1 mmHg Aomean P.7 mmHg MV V2 VTI: 19.9 cm AoV2 VTI: 32.6 cm AV(velocity ratio): 0.48 MVA(VTI): 2.4 cm2 GUANACO(I,D): 1.4 cm2 GUANACO(V,D): 1.4 cm2 AI max yovana: 338.7 cm/sec LV V1 max: 83.4 cm/sec SV(LVOT): 46.9 ml AI max P.0 mmHg LV V1 max P.9 mmHg LV V1 mean P.7 mmHg AI dec slope: 92.2 cm/sec2 LV V1 mean: 59.0 cm/sec AI P1/2t: 1076 msec LV V1 VTI: 15.6 cm TR max yovana: 246.0 cm/sec TR max P.2 mmHg ECHO/Echo Complete Interpretation Summary Mild concentric left ventricular hypertrophy. Overall normal LV systolic function. Estimated LVEF 50-55%. At least stage I diastolic dysfunction. There is severe biatrial dilatation. Mild mitral annular calcification. Mild tricuspid valve insufficiency. Stent mounted bioprosthetic aortic valve. Mean peak gradient 7 mmHg. Trace to mild bioprosthetic aortic valve regurgitation. Ordering Physician: Marian Francisco Referring Physician: Marian Francisco Performed By: Stefan Powell RCS 05/29/25 1415 Date _ Marian Francisco MD CC: Dr. Marian Francisco MD; Dr. Emery Connors DO ~ Date Dictated: 05/29/25 1302 Date Transcribed: 05/29/251414 Assistant Professor Of Sociology: Signed [facility] Work Phone: Cardiology Visit Reporton Cardiology Visit Report [facility] [address] [place], [place] [address]. [address] [place] [address] OFFICE VISIT Date of Service: 04/17/25 MR#: [id number] Acct: [id number] Name: SHREE MARCUM Rep #: [id number] : 1935 Provider: Dr. Marian Francisco MD Age/Sex: 89/M Location: [facility] Status: Signed HPI HPI History of Present Illness Details: This gentleman with history of permanent atrial fibrillation, dyslipidemia, aortic stenosis status post TAVR and hypertension is here for follow-up visit. Denies any complaints today. No chest pains. No shortness of breath. No palpitations. No orthopnea or PND. No ankle edema. Tolerating rivaroxaban well and denies any abnormal bleeding. Intake Vital Signs 10/17/24 14:56 02/27/25 13:38 04/17/25 12:47 Height 5 ft 9 in 5 ft 9 in 5 ft 9 in Weight: 154 lb 155 lb 153 lb BMI 22.7 22.8 22.6 BP 139/83 H 126/78 H 111/78 Blood Pressure Location Lt brachial Lt brachial Lt brachial Position Sitting Sitting Sitting Respiration 18 18 20 H Pulse 67 82 70 Pulse Source NIBP Monitor Monitor Temp 96.8 F L Pulse Oximetry (%) 98 Oxygen Delivery Method room air Intake Visit Reasons: 6-8 M FU Exterminator Required: No Accompanied by: Daughter Allergies terazosin Allergy (Verified 04/17/25 12:53) lower blood pressure Medications ???Medication ???Instructions ???Recorded ???Confirmed ???Type rivaroxaban 20 mg tablet (Xarelto) 20 mg PO DAILY #90 tabs 11/05/24 04/17/25 Rx metoprolol tartrate 25 mg tablet 12.5 mg (1/2 x 25 mg) PO BID heart 02/27/25 04/17/25 Rx 90 days #90 tabs pantoprazole 40 mg tablet,delayed 40 mg PO DAILY #90 tabs 02/27/25 04/17/25 Rx release simvastatin 40 mg tablet 40 mg PO QPM cholesterol #90 tabs 02/27/25 04/17/25 Rx amlodipine 5 mg-benazepril 20 mg 1 cap PO DAILY #90 caps 04/02/25 0 04/17/25 Rx capsule Have you fallen in the past year?: No PFSH Medical History (Updated 04/17/25 @ 13:[address] Marian Francisco MD) Carotid artery disease COVID ( 12/2023) Pneumonia GI bleed Anemia CVA (cerebral vascular accident) History of mitral valve disorder JUSTIN (obstructive sleep apnea) A-fib Syncope and collapse Atrial fibrillation, permanent Primary malignant neoplasm of skin of scalp Carotid stenosis CVA (cerebral vascular accident) Abnormal CT scan of head Inability to walk Immunization reaction Stiffness due to immobility CKD (chronic kidney disease), stage III Vertebral artery stenosis GERD (gastroesophageal reflux disease) Osteoporosis Atrial fibrillation Hypertension Santillan's esophagus with dysplasia Wears dentures Wears glasses Uses wheelchair Anemia High cholesterol Stroke/cerebrovascular accident History of GI bleed Non-smoker History of transcatheter aortic valve replacement (TAVR) Vomiting Orthostatic hypotension Weakness Abnormal finding on imaging of liver Myocardial infarction Essential hypertension Nonrheumatic aortic (valve) stenosis BPH (benign prostatic hyperplasia) Hyperlipidemia Transient cerebral ischemia Paroxysmal atrial fibrillation Primary malignant neoplasm of skin of scalp Surgical History S/P TAVR (transcatheter aortic valve replacement) S/P TAVR (transcatheter aortic valve replacement) History of cardiac catheterization History of endarterectomy History of hernia repair Family History Mother Hypertension Father Hypertension CVA (cerebral vascular accident) Sister Hypertension Brother Cancer Heart disease CVA (cerebral vascular accident) Dementia Social History adopted: No household members: significant other number of children: 2 current occupational status: retired pets and animals: No Smoking Status: Never smoker alcohol intake: current alcohol intake frequency: holidays/special occasions only details: occasional substance use type: does not use caffeine: Yes (3-4) Type: tea frequency: does not exercise do you feel safe at home: Yes ROS Const Const: Negative for fatigue or weakness Eyes Eyes: Negative for change in vision ENT ENT: Negative for dizziness or balance problems Cardio Chest Pain: No Palpitations: No Edema: None Resp Respiratory: Negative for SOB with activity, SOB at rest or SOB orthopnea SOB lying down GI GI: Negative nausea or heartburn Musc Musc: Negative for balance problems Neuro Neuro: Negative for dizziness, lightheadedness, near syncope, syncope or weakness Endo Endo: Negative for fatigue Cardiology Exam Const Appearance: comfortable and no acute distress Nutritional Appearance: well nourished Neck Neck: no JVD Carotids: Negativ (more content not included)... Normal [facility] Anion gap in Serum or Plasma Ordered By: Emery Connors on 02-27-2025 Anion gap [Moles/Vol] 13 mmol/L 5-15 [facility] BUN/creatinine ratioOrdered By: Emery Connors on 02-27-2025 Urea nitrogen/Creatinine [Mass ratio] 15.5 mg/mg 10- [facility] Bilirubin, totalOrdered By: Emery Connors on 02-27-2025 Bilirubin [Mass/Vol] 0.79 mg/dL 0.00-1.30 [facility] CBC-Complete Blood Cnt No Di ffon 02-27-2025 Erythrocyte distribution width (RBC) [Ratio] 13.5 % Normal 11.6-14.6 [facility] Comment on above: Performed By: #### L 500.4050, L100.0500, L500.4100 #### [facility] [address] [place], [address] Hematocrit (Bld) [Volume fraction] 51.6 % Normal 40-54 [facility] Comment on above: Performed By: #### L 500.4050, L100.0500, L500.4100 #### [facility] [address] [place], [address] Hemoglobin (Bld) [Mass/Vol] 17.0 g/dL High 13.0-16.5 [facility] Comment on above: Performed By: #### L 500.4050, L100.0500, L500.4100 #### [facility] [address] [place], [address] MCH (RBC) [Entitic mass] 30.6 pg Normal 27.0-32.0 [facility] Comment on above: Performed By: #### L 500.4050, L100.0500, L500.4100 #### [facility] [address] [place], [address] MCHC (RBC) [Mass/Vol] 32.9 g/dL Normal 32-36 [facility] Comment on above: Performed By: #### L 500.4050, L100.0500, L500.4100 #### [facility] [address] [place], [address] MCV (RBC) [Entitic vol] 93.0 fL Normal 80-94 [facility] Comment on above: Performed By: #### L 500.4050, L100.0500, L500.4100 #### [facility] [address] [place], [address] Platelet mean volume (Bld) [Entitic vol] 10.6 fL Normal 6.2-12.0 [facility] Comment on above: Performed By: #### L 500.4050, L100.0500, L500.4100 #### [facility] [address] [place], [address] Platelets (Bld) [#/Vol] 190 10*3/uL Normal 150-450 [facility] Comment on above: Performed By: #### L 500.4050, L100.0500, L500.4100 #### [facility] [address] [place], [address] RBC (Bld) [#/Vol] 5.55 10*6/uL Normal 4.6-6.2 [facility] Comment on above: Performed By: #### L 500.4050, L100.0500, L500.4100 #### [facility] [address] [place], [address] RDW SD 46.5 fl High 35.1-43.9 [facility] Comment on above: Performed By: #### L 500.4050, L100.0500, L500.4100 #### [facility] [address] [place], [address] WBC (Bld) [#/Vol] 11.2 10*3/uL High 4.4-11.0 [facility] Comment on above: Performed By: #### L 500.4050, L100.0500, L500.4100 #### [facility] [address] [place], [address] Calculated very low density lipoprotein (VLDL) cholesterol measurementOrdered By: Emery Connors on 02-27-2025 Calculated very low density lipoprotein (VLDL) cholesterol measurement 39 mg/dL 5-40 [facility] Carbon dioxide, total [Moles /volume] in Central venous bloodOrdered By: Emery Connors on 02-27-2025 CO2 [Moles/Vol] 23.9 mmol/L 21.0-32.0 [facility] Chloride assayOrdered By: Do rama oCnnors on 02-27-2025 Chloride [Moles/Vol] 108 mmol/L 98-108 [facility] Comprehensive Metabolic Prof ilon 02-27-2025 Albumin [Mass/Vol] 4.0 g/dL Normal 3.4-4.[address] [facility] Comment on above: Performed By: #### L 500.4050, L100.0500, L500.4100 #### [facility] [address] [place], [address] Albumin/Globulin [Mass ratio] 1.3 {ratio} Normal 0.9-2.4 [facility] Comment on above: Performed By: #### L 500.4050, L100.0500, L500.4100 #### [facility] [address] [place], [address] ALK PHOS 91 U/L Normal 40-129 [facility] Comment on above: Performed By: #### L 500.4050, L100.0500, L500.4100 #### [facility] [address] [place], [address] ALT [Catalytic activity/Vol] 25 U/L Normal <=46 [facility] Comment on above: Performed By: #### L 500.4050, L100.0500, L500.4100 #### [facility] [address] [place], [address] AST [Catalytic activity/Vol] 36 U/L Normal <=37 [facility] Comment on above: Performed By: #### L 500.4050, L100.0500, L500.4100 #### [facility] [address] [place], [address] Bilirubin [Mass/Vol] 0.79 mg/dL Normal 0.00-1.30 [facility] Comment on above: Performed By: #### L 500.4050, L100.0500, L500.4100 #### [facility] [address] [place], [address] BUN/CRE 15.5 RATIO Normal 10-20 [facility] Comment on above: Performed By: #### L 500.4050, L100.0500, L500.4100 #### [facility] [address] [place], [address] Calcium [Mass/Vol] 9.7 mg/dL Normal 7.6-11.[address] [facility] Comment on above: Performed By: #### L 500.4050, L100.0500, L500.4100 #### [facility] [address] [place], [address] Chloride [Moles/Vol] 108 mmol/L Normal 98-108 [facility] Comment on above: Performed By: #### L 500.4050, L100.0500, L500.4100 #### [facility] [address] [place], [address] CO2 [Moles/Vol] 23.9 mmol/L Normal 21.0-32.0 [facility] Comment on above: Performed By: #### L 500.4050, L100.0500, L500.4100 #### [facility] [address] [place], [address] Creatinine [Mass/Vol] 1.28 mg/dL High 0.70-1.20 [facility] Comment on above: Performed By: #### L 500.4050, L100.0500, L500.4100 #### [facility] [address] [place], [address] GAP 13 Normal 5-15 [facility] Comment on above: Performed By: #### L 500.4050, L100.0500, L500.4100 #### [facility] [address] [place], [address] GFR/1.73 sq M.predicted among non-blacks MDRD (S/P/Bld) [Vol rate/Area] 54 mL/min/{1.73_m2} Low >60 [facility] Comment on above: Result Comment: mL/m in/1.73m2 CKD-EPI Creatinine Equation (2020) Performed By: #### L 500.4050, L100.0500, L500.4100 #### [facility] [address] [place], [address] Globulin (S) [Mass/Vol] 3.1 g/dL Normal 2.2-4.2 [facility] Comment on above: Performed By: #### L 500.4050, L100.0500, L500.4100 #### [facility] [address] [place], [address] Glucose [Mass/Vol] 113 mg/dL High 70-[address] [facility] Comment on above: Performed By: #### L 500.4050, L100.0500, L500.4100 #### [facility] [address] [place], [address] Potassium [Moles/Vol] 4.7 mmol/L Normal 3.3-5.1 [facility] Comment on above: Performed By: #### L 500.4050, L100.0500, L500.4100 #### [facility] [address] [place], [address] Sodium [Moles/Vol] 145 mmol/L Normal 133-[address] [facility] Comment on above: Performed By: #### L 500.4050, L100.0500, L500.4100 #### [facility] [address] [place], [address] T PROT 7.0 g/dL Normal 5.9-8.4 [facility] Comment on above: Performed By: #### L 500.4050, L100.0500, L500.4100 #### [facility] [address] [place], [address] Urea nitrogen [Mass/Vol] 20 mg/dL High 4-19 [facility] Comment on above: Performed By: #### L 500.4050, L100.0500, L500.4100 #### [facility] [address] [place], [address] Erythrocyte distribution wid th ratioOrdered By: Emery Brown on 02-27-2025 Erythrocyte distribution width (RBC) [Ratio] 13.5 % 11.6-14.6 [facility] Erythrocyte distribution wid th standard deviationOrdered By: Emery Brown on 02-27-2025 Erythrocyte distribution width (RBC) [Ratio] 46.5 fl High 35.1-43.9 [facility] Glomerular filtration rate ( GFR) estimation/1.73 sq m using serum, plasma, or whole bOrdered By: Emery Brown on 02-27-2025 GFR/1.73 sq M.predicted among non-blacks MDRD (S/P/Bld) [Vol rate/Area] 54 mL/min/{1.73_m2} Low >60 [facility] Comment on above: mL/min/1.73m2 CKD-EP I Creatinine Equation (2020) Hematocrit Auto (Bld) [Volum e fraction]Ordered By: Emery Connors on 02-27-2025 Hematocrit (Bld) [Volume fraction] 51.6 % 40-54 [facility] Hemoglobin measurementOrdere d By: Emery Connors on 02-27-2025 Hemoglobin (Bld) [Mass/Vol] 17.0 g/dL High 13.0-16.5 [facility] Internal Medicine Office Vis iton 02-27-2025 Internal Medicine Office Visit [facility] [address] [place], [place] [address] OFFICE VISIT Date of Service: 02/27/25 MR#: [id number] Acct: [id number] Name: SHREE MARCUM Rep #: [id number] : 1935 Provider: Dr. Emery Armenta own, DO Age/Sex: 89/M [place] [facility] Status: Signed Intake Vital Signs 10/17/24 14:56 02/27/25 13:38 Height 5 ft 9 in 5 ft 9 in Weight: 154 lb 155 lb BMI 22.7 22.8 BP 139/83 H 126/78 H Blood Pressure Location Lt brachial Lt brachial Position Sitting Sitting Respiration 18 18 Pulse 67 82 Pulse Source NIBP Monitor Temp 96.8 F L Temp Source Temporal Pulse Oximetry (%) 98 Oxygen Delivery Method room air Intake Visit Reasons: fu Chief Complaint: fu Is patient in pain?: No Allergies terazosin Allergy (Verified 02/27/25 13:36) lower blood pressure Medications ???Medication ???Instructions ???Recorded ???Confirmed ???Type rivaroxaban 20 mg tablet (Xarelto) 20 mg PO DAILY #90 tabs 11/05/24 02/27/25 Rx amlodipine 5 mg-benazepril 20 mg 1 cap PO DAILY #90 caps 01/22/25 0 02/27/25 Rx capsule metoprolol tartrate 25 mg tablet 12.5 mg (1/2 x 25 mg) PO BID heart 02/27/25 02/27/25 Rx 90 days #90 tabs pantoprazole 40 mg tablet,delayed 40 mg PO DAILY #90 tabs 02/27/25 02/27/25 Rx release simvastatin 40 mg tablet 40 mg PO QPM cholesterol #90 tabs 02/27/25 02/27/25 Rx Have you fallen in the past year?: No PFSH Medical History COVID ( 12/2023) Pneumonia GI bleed Anemia CVA (cerebral vascular accident) History of mitral valve disorder JUSTIN (obstructive sleep apnea) A-fib Syncope and collapse Atrial fibrillation, permanent Primary malignant neoplasm of skin of scalp Carotid stenosis CVA (cerebral vascular accident) Abnormal CT scan of head Inability to walk Immunization reaction Stiffness due to immobility CKD (chronic kidney disease), stage III Vertebral artery stenosis GERD (gastroesophageal reflux disease) Osteoporosis Atrial fibrillation Hypertension Santillan's esophagus with dysplasia Wears dentures Wears glasses Uses wheelchair Anemia High cholesterol Stroke/cerebrovascular accident History of GI bleed Non-smoker History of transcatheter aortic valve replacement (TAVR) Vomiting Orthostatic hypotension Weakness Abnormal finding on imaging of liver Myocardial infarction Essential hypertension Nonrheumatic aortic (valve) stenosis BPH (benign prostatic hyperplasia) Hyperlipidemia Transient cerebral ischemia Paroxysmal atrial fibrillation Primary malignant neoplasm of skin of scalp Surgical History S/P TAVR (transcatheter aortic valve replacement) S/P TAVR (transcatheter aortic valve replacement) History of cardiac catheterization History of endarterectomy History of hernia repair Family History Mother Hypertension Father Hypertension CVA (cerebral vascular accident) Sister Hypertension Brother Cancer Heart disease CVA (cerebral vascular accident) Dementia Social History adopted: No household members: significant other number of children: 2 current occupational status: retired pets and animals: No Smoking Status: Never smoker alcohol intake: current alcohol intake frequency: holidays/special occasions only details: occasional substance use type: does not use caffeine: Yes (3-4) Type: tea frequency: does not exercise do you feel safe at home: Yes HPI HPI Chief Complaint: fu Details: SHREE MARCUM, is a 89 M who presents to the office today for a regular 6-month checkup. He has not had any trouble with chest pain or shortness of breath. He has not had any trouble with bowel movements or urination or appetite. He says he feels quite well although he is a little dizzy when he gets up very quickly. ROS Const Constitutional: No body ache, chills, excessive sweating, fatigue, fever(s), frequent falls, headache(s), snoring, weight change, sleep problems, abnormal sleep pattern or change in appetite Eyes Eyes: No blurry vision, change in vision, eye pain or Light sensitivity ENT ENT: No abnormal hearing, ear or mastoid pain, tinnitus, nasal congestion, headache(s), neck pain or sore throat Resp Respiratory: No cough, shortness of breath, snoring or wheezing Cardio Cardiology: No chest pain at rest, chest pain with exertion, excessive sweating, shortness of breath, dyspnea on exertion, lightheadedness, orthopnea or palpitations Gastro GI: No abdominal pain, change in bowel habits, constipation, cramping, diarrhea, nausea/dyspepsia or vomiting Genitourinary Male: No burning urination (more content not included)... Normal [facility] LDL calc ser/plasOrdered By: Emery Connors on 02-27-2025 Cholesterol in LDL [Mass/Vol] 58 mg/dL [facility] Comment on above: Cwfhjbwjzm=922-017 m g/dL & Higher Rmre=327 mg/dL or greater Laboratory - Chemistry and C hemistry - challengeOrdered By: Emery Connors on 02-27-2025 AST [Catalytic activity/Vol] 36 U/L <38 [facility] Lipid Profileon 02-27-2025 CHOL:HDL 3.37 Normal [facility] Comment on above: Performed By: #### L 500.7960, L100.0500, L500.4100 #### [facility] [address] [place], [address] Cholesterol [Mass/Vol] 139 mg/dL Normal <=200 [facility] Comment on above: Result Comment: Chol esterol level, Desirable <200 mg/dL Borderline high cholesterol 200-239 mg/dL High cholesterol >=240 mg/dL Recommendations of the NCEP Adult Treatment Panel for the following risk-cutoff thresholds for the [place] population. Performed By: #### L 500.4050, L100.0500, L500.4100 #### [facility] [address] [place], [address] Cholesterol in HDL [Mass/Vol] 41 mg/dL Normal [facility] Comment on above: Result Comment: Mar onal Cholesterol Education Program (NCEP) guidelines: <40 mg/dL: Low HDL-cholesterol (major risk factor for CHD) >= 60 mg/dL: High HDL-cholesterol (negative risk factor for CHD) HDL-cholesterol is affected by a number of factors, e.g. smoking, exercise, hormones, sex and age. Performed By: #### L 500.4050, L100.0500, L500.4100 #### [facility] [address] [place], [address] Cholesterol in LDL [Mass/Vol] 58 mg/dL Normal [facility] Comment on above: Result Comment: Bord oxbces=629-891 mg/dL Higher Vtnm=022 mg/dL or greater Performed By: #### L 500.4050, L100.0500, L500.4100 #### [facility] [address] [place], [address] Cholesterol in VLDL [Mass/Vol] 39 mg/dL Normal 5-40 [facility] Comment on above: Performed By: #### L 500.4050, L100.0500, L500.4100 #### [facility] [address] [place], [address] Triglyceride [Mass/Vol] 197 mg/dL Normal [facility] Comment on above: Result Comment: The drugs N-Acetylcysteine and Metamizole may falsely depress this assay. Normal range: <150 mg/dL Borderline High: 150-199 mg/dL High: 200-499 mg/dL Very High: >500 mg/dL Performed By: #### L 500.4050, L100.0500, L500.4100 #### [facility] [address] [place], [address] MCV (mean corpuscular volume ) determinationOrdered By: Emery Connors on 02-27-2025 MCV (RBC) [Entitic vol] 93.0 fL 80-94 [facility] Mean corpuscular hemoglobin (MCH) determinationOrdered By: Emery Connors on 02-27-2025 MCH (RBC) [Entitic mass] 30.6 pg 27.0-32.0 [facility] Mean corpuscular hemoglobin concentration (MCHC) determinationOrdered By: Emery Connors on 02-27-2025 MCHC (RBC) [Mass/Vol] 32.9 g/dL 32-36 [facility] Mean platelet volume determi nationOrdered By: Emery Connors on 02-27-2025 Platelet mean volume (Bld) [Entitic vol] 10.6 fL 6.2-12.0 [facility] Platelet countOrdered By: Do rama Connors on 02-27-2025 Platelets (Bld) [#/Vol] 190 10*3/uL 150-450 [facility] Potassium measurement (mass/ volume)Ordered By: Emery Connors on 02-27-2025 Potassium (Unsp spec) [Mass/Vol] 4.7 mmol/L 3.3-5.1 [facility] RBC Auto (Bld) [#/Vol]Ordere d By: Emery Connors on 02-27-2025 RBC (Bld) [#/Vol] 5.55 10*6/uL 4.6-6.2 [facility] Screening total cholesterol/ high density lipoprotein (HDL) cholesterol ratioOrdered By: Emery Connors on 02-27-2025 Cholesterol.total/Choles terol in HDL [Mass ratio] 3.37 {ratio} [facility] Serum creatinine measurement (mass/volume)Ordered By: Emery Connors on 02-27-2025 Creatinine [Mass/Vol] 1.28 mg/dL High 0.70-1.20 [facility] Serum globulin measurementOr dered By: Emery Connors 02-27-2025 Globulin (S) [Mass/Vol] 3.1 g/dL 2.2-4.2 [facility] Serum glucose measurement (m ass/volume)Ordered By: Emery Connors on 02-27-2025 Glucose [Mass/Vol] 113 mg/dL High 70-[address] [facility] Serum or plasma alanine traylor otransferase (ALT) measurementOrdered By: Emery Connors on 02-27-2025 ALT [Catalytic activity/Vol] 25 U/L <47 [facility] Serum or plasma albumin tony urement (mass/volume)Ordered By: Emery Connors on 02-27-2025 Albumin [Mass/Vol] 4.0 g/dL 3.4-4.[address] [facility] Serum or plasma albumin/glob ulin mass ratioOrdered By: Emerytanisha Connors on 02-27-2025 Albumin/Globulin [Mass ratio] 1.3 {ratio} 0.9-2.4 [facility] Serum or plasma alkaline stephanie sphatase measurementOrdered By: Emery Connors 02-27-2025 ALP [Catalytic activity/Vol] 91 U/L 40-129 [facility] Serum or plasma calcium tony urement (mass/volume)Ordered By: Emery Connors 02-27-2025 Calcium [Mass/Vol] 9.7 mg/dL 7.6-11.[address] [facility] Serum or plasma cholesterol in HDL measurement (mass/volume)Ordered By: Emery Connors 02-27-2025 Cholesterol in HDL [Mass/Vol] 41 mg/dL >40 [facility] Comment on above: National Cholesterol Education Program (NCEP) guidelines:<40 mg/dL: Low HDL-cholesterol (major risk factor for CHD)>= 60 mg/dL: High HDL-cholesterol (negative risk factor for CHD)HDL-cholesterol is affected by a number of factors, e.g. smoking, exercise, hormones, sex and age. Serum or plasma cholesterol measurement (mass/volume)Ordered By: Emery Connors 02-27-2025 Cholesterol [Mass/Vol] 139 mg/dL <201 [facility] Comment on above: Cholesterol level, D esirable <200 mg/dLBorderline high cholesterol 200-239 mg/dLHigh cholesterol >=240 mg/dLRecommendations of the NCEP Adult Treatment Panel for the following risk-cutoff thresholds for the [place] population. Serum or plasma urea nitroge n measurement (mass/volume)Ordered By: Emery Connors on 02-27-2025 Urea nitrogen [Mass/Vol] 20 mg/dL High 4-19 [facility] Sodium levelOrdered By: Edenilson Connors on 02-27-2025 Sodium [Moles/Vol] 145 mmol/L 133-[address] [facility] Total proteinOrdered By: Michael Connors on 02-27-2025 Protein [Mass/Vol] 7.0 g/dL 5.9-8.[address] [facility] Triglycerides measurementOrd ered By: Emery Grzegorz on 02-27-2025 Triglyceride [Mass/Vol] 197 mg/dL <199 [facility] Comment on above: The drugs N-Acetylcy steine and Metamizole may falsely depress this assay. Normal range: <150 mg/dLBorderline High: 150-199 mg/dLHigh: 200-499 mg/dLVery High: >500 mg/dL White blood cell (WBC) count Ordered By: Emery Connors on 02-27-2025 WBC (Bld) [#/Vol] 11.2 10*3/uL High 4.4-11.0 [facility] Cardiology Visit Reporton Cardiology Visit Report [facility] [address] [place], [place] [address] OFFICE VISIT Date of Service: 10/17/24 MR#: [id number] Acct: [id number] Name: SHREE MARCUM Rep #: [id number] : 1935 Provider: SLADE harvey Age/Sex: 89/M Location: [facility] [place] Status: Signed HPI HPI History of Present Illness Details: This gentleman has history of permanent atrial fibrillation and aortic valve stenosis status post TAVR in 2020. Here for follow-up visit today. He denies chest, arm, jaw, or neck discomfort. He denies palpitations. He denies bilateral lower extremity edema. He denies claudication. He denies shortness of breath with activity, shortness of breath at rest, orthopnea, or PND. He denies chronic cough. He denies significant, sudden weight gain. He denies lightheadedness, dizziness, near-syncope, or syncope. He denies blood in urine, blood in stool, or epistaxis. He denies fever with chills. He denies myalgia. He denies fatigue. His exercise level has remained stable. Intake Vital Signs 04/17/24 13:55 07/17/24 11:28 10/17/24 14:56 Height 5 ft 9 in 5 ft 9 in 5 ft 9 in Weight: 154 lb BMI 22.7 BP 139/83 H Blood Pressure Location Lt brachial Position Sitting Respiration 18 Pulse 67 Pulse Source NIBP Intake Visit Reasons: 6 M FU Exterminator Required: No Is patient in pain?: No Allergies terazosin Allergy (Verified 10/17/24 15:02) lower blood pressure Medications ???Medication ???Instructions ???Recorded ???Confirmed ???Type rivaroxaban 20 mg tablet (Xarelto) 20 mg PO DAILY #90 tabs 01/12/24 10/17/24 Rx amlodipine 5 mg-benazepril 20 mg 1 cap PO DAILY #90 caps 03/14/24 10/17/24 Rx capsule metoprolol tartrate 25 mg tablet 12.5 mg (1/2 x 25 mg) PO BID heart 07/23/24 10/17/24 Rx 90 days #90 tabs pantoprazole 40 mg tablet,delayed 40 mg PO DAILY #90 tabs 07/23/24 10/17/24 Rx release simvastatin 40 mg tablet 40 mg PO QPM cholesterol #90 tabs 07/31/24 10/17/24 Rx Ejection fraction %: 55 Have you fallen in the past year?: No PFSH Medical History COVID ( 12/2023) Pneumonia GI bleed Anemia CVA (cerebral vascular accident) History of mitral valve disorder JUSTIN (obstructive sleep apnea) A-fib Syncope and collapse Atrial fibrillation, permanent Primary malignant neoplasm of skin of scalp Carotid stenosis CVA (cerebral vascular accident) Abnormal CT scan of head Inability to walk Immunization reaction Stiffness due to immobility CKD (chronic kidney disease), stage III Vertebral artery stenosis GERD (gastroesophageal reflux disease) Osteoporosis Atrial fibrillation Hypertension Santillan's esophagus with dysplasia Wears dentures Wears glasses Uses wheelchair Anemia High cholesterol Stroke/cerebrovascular accident History of GI bleed Non-smoker History of transcatheter aortic valve replacement (TAVR) Vomiting Orthostatic hypotension Weakness Abnormal finding on imaging of liver Myocardial infarction Essential hypertension Nonrheumatic aortic (valve) stenosis BPH (benign prostatic hyperplasia) Hyperlipidemia Transient cerebral ischemia Paroxysmal atrial fibrillation Primary malignant neoplasm of skin of scalp Surgical History S/P TAVR (transcatheter aortic valve replacement) S/P TAVR (transcatheter aortic valve replacement) History of cardiac catheterization History of endarterectomy History of hernia repair Family History Mother Hypertension Father Hypertension CVA (cerebral vascular accident) Sister Hypertension Brother Cancer Heart disease CVA (cerebral vascular accident) Dementia Social History adopted: No household members: significant other number of children: 2 current occupational status: retired pets and animals: No Smoking Status: Never smoker alcohol intake: current alcohol intake frequency: holidays/special occasions only details: occasional substance use type: does not use caffeine: Yes (3-4) Type: tea frequency: does not exercise do you feel safe at home: Yes ROS Const Const: Negative for fatigue or weakness Eyes Eyes: Negative for change in vision ENT ENT: Positive for balance problems (Uses walker); Negative for dizziness Cardio Chest Pain: No Palpitations: No Edema: None Muscle aches with walking: None Resp Respiratory: Negative for SOB with activity, SOB at rest or SOB orthopnea SOB lying down GI GI: Negative nausea or heartburn : Negative for hematuria or frequent nighttime urination/ nocturia Musc Musc: Positive for balance problems (Uses walker) Skin Skin: Negative non-healing lesions or (more content not included)... Normal [facility] Internal Medicine Office Vis iton 07-17-2024 Internal Medicine Office Visit [facility] [address] [place], [place] [address] OFFICE VISIT Date of Service: 07/17/24 MR#: [id number] Acct: [id number] Name: SHREE MARCUM Rep #: [id number] : 1935 Provider: Dr. Emery Armenta own, DO Age/Sex: 89/M Location[place] [facility] [place] Status: Signed Intake Vital Signs 04/17/24 13:55 09/17/24 11:28 Height 5 ft 9 in 5 ft 9 in Weight: 155 lb BMI 22.8 BP 120/62 Blood Pressure Location Lt brachial Position Sitting Respiration 16 Pulse 64 Pulse Source Monitor Temp 97.5 F L Temp Source Temporal Pulse Oximetry (%) 97 Oxygen Delivery Method room air Intake Visit Reasons: EST NEW PT - HEART GRP PT Chief Complaint: Routine exam, changing primary provider. Exterminator Required: No Accompanied by: Daughter Is patient in pain?: No Allergies terazosin Allergy (Verified 07/17/24 11:17) lower blood pressure Medications ???Medication ???Instructions ???Recorded ???Confirmed ???Type simvastatin 40 mg tablet 40 mg PO QPM cholesterol 12/19/17 07/17/24 History pantoprazole 40 mg tablet,delayed 40 mg PO DAILY #30 tabs 12/27/22 07/17/24 Rx release metoprolol tartrate 25 mg tablet 12.5 mg PO BID heart 07/11/23 07/17/24 History rivaroxaban 20 mg tablet (Xarelto) 20 mg PO DAILY #90 tabs 01/12/24 07/17/24 Rx amlodipine 5 mg-benazepril 20 mg 1 cap PO DAILY #90 caps 03/14/24 07/17/24 Rx capsule Have you fallen in the past year?: No Nurse's Note: Needing simvastatin, pantoprazole, and metoprolol refilled. [facility] Medical History COVID ( 12/2023) Pneumonia GI bleed Anemia CVA (cerebral vascular accident) History of mitral valve disorder JUSTIN (obstructive sleep apnea) A-fib Syncope and collapse Atrial fibrillation, permanent Primary malignant neoplasm of skin of scalp Carotid stenosis CVA (cerebral vascular accident) Abnormal CT scan of head Inability to walk Immunization reaction Stiffness due to immobility CKD (chronic kidney disease), stage III Vertebral artery stenosis GERD (gastroesophageal reflux disease) Osteoporosis Atrial fibrillation Hypertension Santillan's esophagus with dysplasia Wears dentures Wears glasses Uses wheelchair Anemia High cholesterol Stroke/cerebrovascular accident History of GI bleed Non-smoker History of transcatheter aortic valve replacement (TAVR) Vomiting Orthostatic hypotension Weakness Abnormal finding on imaging of liver Myocardial infarction Essential hypertension Nonrheumatic aortic (valve) stenosis BPH (benign prostatic hyperplasia) Hyperlipidemia Transient cerebral ischemia Paroxysmal atrial fibrillation Primary malignant neoplasm of skin of scalp Surgical History S/P TAVR (transcatheter aortic valve replacement) S/P TAVR (transcatheter aortic valve replacement) History of cardiac catheterization History of endarterectomy History of hernia repair Family History Mother Hypertension Father Hypertension CVA (cerebral vascular accident) Sister Hypertension Brother Cancer Heart disease CVA (cerebral vascular accident) Dementia Social History (Updated 07/17/24 @ 11:28 by Bindu Alex MA) adopted: No household members: significant other number of children: 2 service: Yes ([employer]) details: 55-59 current occupational status: retired pets and animals: No do you think of yourself as: straight/heterosexual current gender identity: male Smoking Status: Never smoker alcohol intake: current alcohol intake frequency: holidays/special occasions only details: occasional substance use type: does not use caffeine: Yes (3-4) Type: tea frequency: does not exercise do you feel safe at home: Yes HPI HPI Chief Complaint: Routine exam, changing primary provider. Details: SHREE MARCUM, is a 89 M who presents to the office today for a visit to establish a new physician. He has a very complex history having had a stroke. He has had multiple cardiac procedures including valve replacement. He is in atrial fibrillation and is on Xarelto to prevent another stroke which she had when he stopped taking the Xarelto because of a GI bleed years ago. So it is going to be essential he stays on a proton pump inhibitor as well as his Xarelto. ROS Const Constitutional: No body ache, chills, excessive sweating, fatigue, fever(s), frequent falls, headache(s), snoring, weakness, sleep problems or change in appetite Eyes Eyes: No blurry vision, change in vision, eye pain or Light sensitivity ENT ENT: No abnormal hearing, ear or mastoid pain, tinnitus, nasal congestion, headache(s), neck pain or sore throat Resp (more content not included)... Normal [facility] HCVon 01-18-2024 Hep C Ab Non-Reactive Normal Non-Reactiv e [facility] ([place]) Comment on above: Performed By: #### G FR, PHOS, PSA, BMP, VIDH #### [address] [address] #### PTH, HCV1 #### [place] [address] Hep C Ab Int [facility] ([place]) Comment on above: Result Comment: Nonr eactive: Samples with a value < 0.80 are considered nonreactive (negative) for antibodies to HCV. A negative test result does not exclude the possibility of exposure to or infection with HCV. HCV antibodies may be undetectable in some stages of the infection and in some clinical conditions. See Interp Performed By: #### G FR, PHOS, PSA, BMP, VIDH #### [place] [id number] #### PTH, HCV1 #### [place] [address] PTHon 01-18-2024 PTH, Intact 155.9 pg/mL High 18.5-88.0 [facility] ([place]) Comment on above: Performed By: #### G FR, PHOS, PSA, BMP, VIDH #### [place] [id number] #### PTH, HCV1 #### [place] [id number] .GFRon 01-17-2024 GFR Non- 47 ml/min/1.73sqm [facility] ([place]) Comment on above: Result Comment: GFR Population mean for , Non- Americans Ages 20-29 = 116 mL/min/1.73 sq.m. Ages 30-39 = 107 mL/min/1.73 sq.m. Ages 40-49 = 99 mL/min/1.73 sq.m. Ages 50-59 = 93 mL/min/1.73 sq.m. Ages 60-69 = 85 mL/min/1.73 sq.m. Ages 70+ = 75 mL/min/1.73 sq.m. Chronic Kidney Disease: Less than 60 mL/min/1.73 square meters End Stage Renal Disease: Less than 15 mL/min/1.73 square meters Performed By: #### G FR, PHOS, PSA, BMP, VIDH #### [address] [address] #### PTH, HCV1 #### [address] [address] GFR 56 ml/min/1.73sqm Normal [facility] ([place]) Comment on above: Result Comment: GFR Population mean for , Non- Americans Ages 20-29 = 116 mL/min/1.73 sq.m. Ages 30-39 = 107 mL/min/1.73 sq.m. Ages 40-49 = 99 mL/min/1.73 sq.m. Ages 50-59 = 93 mL/min/1.73 sq.m. Ages 60-69 = 85 mL/min/1.73 sq.m. Ages 70+ = 75 mL/min/1.73 sq.m. Chronic Kidney Disease: Less than 60 mL/min/1.73 square meters End Stage Renal Disease: Less than 15 mL/min/1.73 square meters Performed By: #### G FR, PHOS, PSA, BMP, VIDH #### [place] [address] #### PTH, HCV1 #### [address] [address] BMPon 01-17-2024 BUN/Creatinine Ratio 15 ratio Normal 7-27 [facility] ([place]) Comment on above: Performed By: #### G FR, PHOS, PSA, BMP, VIDH #### [address] [address] #### PTH, HCV1 #### [address] [address] Calcium [Mass/Vol] 9.3 mg/dL Normal 8.4-10.2 [facility] ([place]) Comment on above: Performed By: #### G FR, PHOS, PSA, BMP, VIDH #### [place] [id number] #### PTH, HCV1 #### [address] [address] Chloride [Moles/Vol] 107 mmol/L Normal 98-107 [facility] ([place]) Comment on above: Performed By: #### G FR, PHOS, PSA, BMP, VIDH #### [address] [address] #### PTH, HCV1 #### [address] [address] CO2 [Moles/Vol] 22 mmol/L Low 23-31 [facility] ([place]) Comment on above: Performed By: #### G FR, PHOS, PSA, BMP, VIDH #### [address] [address] #### PTH, HCV1 #### [address] [address] Creatinine [Mass/Vol] 1.44 mg/dL High 0.70-1.30 [facility] ([place]) Comment on above: Performed By: #### G FR, PHOS, PSA, BMP, VIDH #### [address] [address] #### PTH, HCV1 #### [address] [address] Electrolyte Balance 15.0 mEq/L Normal 4.0-15.0 [facility] ([place]) Comment on above: Performed By: #### G FR, PHOS, PSA, BMP, VIDH #### [address] [address] #### PTH, HCV1 #### [address] [address] Glucose [Mass/Vol] 90 mg/dL Normal 83-110 [facility] ([place]) Comment on above: Performed By: #### G FR, PHOS, PSA, BMP, VIDH #### [address] [address] #### PTH, HCV1 #### [address] [address] Potassium [Moles/Vol] 4.8 mmol/L Normal 3.5-5.1 [facility] ([place]) Comment on above: Performed By: #### G FR, PHOS, PSA, BMP, VIDH #### [address] [address] #### PTH, HCV1 #### [address] [address] Sodium [Moles/Vol] 144 mmol/L Normal 136-145 [facility] ([place]) Comment on above: Performed By: #### G FR, PHOS, PSA, BMP, VIDH #### [address] [address] #### PTH, HCV1 #### [address] [address] Urea nitrogen [Mass/Vol] 21 mg/dL High 7-18 [facility] ([place]) Comment on above: Performed By: #### G FR, PHOS, PSA, BMP, VIDH #### [address] [address] #### PTH, HCV1 #### [address] [address] LABORATORYOrdered By: SYSTEM SYSTEM on 01-17-2024 25-hydroxyvitamin D3 [Mass/Vol] 29.1 ng/mL Invalid Interpretation Code AO ADM SS Comment on above: Interpretive Data: I nterpretive Values Based on Total 25(OH) Vitamin D: Deficient <20 ng/mL Insufficient 20 - <30 ng/mL Sufficient 30-100 ng/mL Calcium [Mass/Vol] 9.3 mg/dL Normal 8.4 - 10. 2 mg/dL AO ADM SS Chloride [Moles/Vol] 107 mmol/L Normal 98 - 10 7 mmol/L AO ADM SS CO2 [Moles/Vol] 22 mmol/L Low 23 - 31 mmol/L AO ADM SS Creatinine [Mass/Vol] 1.44 mg/dL High 0.70 - 1.30 mg/dL AO ADM SS Electrolyte Balance 15.0 mEq/L Normal 4.0 - 15 .0 mEq/L AO ADM SS GFR/1.73 sq M.predicted among blacks MDRD (S/P/Bld) [Vol rate/Area] 56 ml/min/1.73sqm Invalid Interpretation Code AO Chemistry S Comment on above: Interpretive Data: GFR Population mean for , Non- Americans Ages 20-29 = 116 mL/min/1.73 sq.m. Ages 30-39 = 107 mL/min/1.73 sq.m. Ages 40-49 = 99 mL/min/1.73 sq.m. Ages 50-59 = 93 mL/min/1.73 sq.m. Ages 60-69 = 85 mL/min/1.73 sq.m. Ages 70+ = 75 mL/min/1.73 sq.m. Chronic Kidney Disease: Less than 60 mL/min/1.73 square meters End Stage Renal Disease: Less than 15 mL/min/1.73 square meters GFR/1.73 sq M.predicted among non-blacks MDRD (S/P/Bld) [Vol rate/Area] 47 ml/min/1.73sqm Invalid Interpretation Code AO Chemistry S Comment on above: Interpretive Data: GFR Population mean for , Non- Americans Ages 20-29 = 116 mL/min/1.73 sq.m. Ages 30-39 = 107 mL/min/1.73 sq.m. Ages 40-49 = 99 mL/min/1.73 sq.m. Ages 50-59 = 93 mL/min/1.73 sq.m. Ages 60-69 = 85 mL/min/1.73 sq.m. Ages 70+ = 75 mL/min/1.73 sq.m. Chronic Kidney Disease: Less than 60 mL/min/1.73 square meters End Stage Renal Disease: Less than 15 mL/min/1.73 square meters Glucose [Mass/Vol] 90 mg/dL Normal 83 - 110 mg/dL AO ADM SS Parathyrin.intact [Mass/Vol] 155.9 pg/mL High 18.5 - 88.0 pg/mL AH ADM SS Phosphate [Mass/Vol] 4.9 mg/dL High 2.3 - 4 .1 mg/dL AO ADM SS Potassium [Moles/Vol] 4.8 mmol/L Normal 3.5 - 5.1 mmol/L AO ADM SS Prostate specific Ag [Mass/Vol] 8.57 ng/mL High 0.00 - 4.00 ng/mL AO ADM SS Sodium [Moles/Vol] 144 mmol/L Normal 136 - 145 mmol/L AO ADM SS Urea nitrogen [Mass/Vol] 21 mg/dL High 7 - 18 mg/dL AO ADM SS Urea nitrogen/Creatinine [Mass ratio] 15 ratio Normal 7 - 27 ratio AO ADM SS LABORATORYOrdered By: Asya Moulton on 01-17-2024 HCV Ab IA Ql Non-Reactive (01/17/24 4:04 PM) Normal Non-Reactiv e ADM SS HCV Ab IA Ql Nonreactive: Samples with a value < 0.80 are considered nonreactive (negative) for antibodies to HCV.A negative test result does not exclude the possibility of exposure to or infection with HCV. HCV antibodies may be undetectable in some stages of the infection and in some clinical conditions. Invalid Interpretation Code Chemistry S PHOSon 01-17-2024 Phosphate [Mass/Vol] 4.9 mg/dL High 2.3-4.1 [facility] ([place]) Comment on above: Performed By: #### G FR, PHOS, PSA, BMP, VIDH #### [place] [address] #### PTH, HCV1 #### [place] [address] PSAon 01-17-2024 Prostate Specific Antigen 8.57 ng/mL High 0.00-4.00 [facility] ([place]) Comment on above: Performed By: #### G FR, PHOS, PSA, BMP, VIDH #### [place] [address] #### PTH, HCV1 #### [place] [address] VIDHon 01-17-2024 Vit. D 25-Hydroxy 29.1 ng/mL Normal [facility] ([place]) Comment on above: Result Comment: Inte rpretive Values Based on Total 25(OH) Vitamin D: Deficient <20 ng/mL Insufficient 20 - <30 ng/mL Sufficient 30-100 ng/mL Performed By: #### G FR, PHOS, PSA, BMP, VIDH #### [place] [address] #### PTH, HCV1 #### [facility] [address] [place] [address] Thin prep Papanicolaou smear with manual screeningOrdered By: Yash Moreno on 12-12-2023 Thin prep Papanicolaou smear with manual screening 209 mg/dL 74-106 [facility] Comment on above: MANAGEMENT OF PATIEN T CARE PER NURSING PROTOCOL Absolute lymphocyte countOrd ered By: Alisa Duran on 12-11-2023 Lymphocytes Auto (Unsp spec) [#/Vol] 0.93 10*3/uL 0.83-4.51 [facility] Automated lymphocyte count a s percentage of total leukocytesOrdered By: Alisa Duran on 12-11-2023 Lymphocytes/100 WBC Auto (Unsp spec) 6.3 % 19-41 [facility] Basophil percentageOrdered B y: Alisa Duran on 12-11-2023 Basophils/100 WBC (Bld) 0.2 % 0-1 [facility] Bilirubin [Mass/Vol] 1.10 mg/dL 0.20-1.00 [facility] Comment on above: For patients on eltr ombopag therapy, use of Dimension [place] TBIL is not recommended. Chloride [Moles/Vol] 112 mmol/L 98-107 [facility] Eosinophils/100 WBC (Bld) 0.0 % 0-5 [facility] Glucose [Mass/Vol] 134 mg/dL 74-[address] [facility] Comment on above: Fasting Glucose resu lt greater than or equal to 126 mg/dL suggests DIABETES MELLITUS per A.D.A. criteria. Hemoglobin (Bld) [Mass/Vol] 14.5 g/dL 13.0-16.5 [facility] Monocytes/100 WBC (Bld) 5.7 % 0-10 [facility] Neutrophils (Bld) [#/Vol] 12.8 10*3/uL 2.0-7.7 [facility] Neutrophils/100 WBC (Bld) 87.1 % 47-70 [facility] Potassium [Moles/Vol] 4.2 mmol/L 3.5-5.1 [facility] Protein [Mass/Vol] 6.6 g/dL 6.4-8.[address] [facility] Sodium [Moles/Vol] 139 mmol/L 136-145 [facility] WBC (Bld) [#/Vol] 14.7 10*3/uL 4.4-11.0 [facility] Determination of erythrocyte mean corpuscular volume (MCV)Ordered By: Alisa Duran on 12-11-2023 MCV (RBC) [Entitic vol] 94.2 fL 80-94 [facility] Erythrocyte distribution wid th ratioOrdered By: Alisa Renee on 12-11-2023 Erythrocyte distribution width (RBC) [Ratio] 13.5 % 11.6-14.6 [facility] Erythrocyte distribution wid th standard deviationOrdered By: [facility] Renee on 12-11-2023 Erythrocyte distribution width (RBC) [Entitic vol] 46.4 fL 35.1-43.9 [facility] Hematocrit Auto (Bld) [Volum e fraction]Ordered By: [facility] Renee on 12-11-2023 Hematocrit (Bld) [Volume fraction] 45.2 % 40-54 [facility] Immature granulocytes/100 WB C Auto (Bld)Ordered By: Alisa Duran on 12-11-2023 Immature granulocytes/100 WBC (Bld) 0.700 % 0.0-0.9 [facility] Comment on above: IG% - Immature Granu locytes (promyelocytes, myelocytes and metamyelocytes) > 1% indicates that a LEFT SHIFT is Present. Laboratory - Chemistry and C hemistry - challengeOrdered By: [facility] Renee on 12-11-2023 Albumin/Globulin [Mass ratio] 0.7 {ratio} 0.9-2.4 [facility] ALP [Catalytic activity/Vol] 66 U/L 45-117 [facility] ALT [Catalytic activity/Vol] 38 U/L 16-61 [facility] CO2 [Moles/Vol] 23.0 mmol/L 21.0-32.0 [facility] Globulin (S) [Mass/Vol] 3.8 g/dL 2.2-4.2 [facility] Urea nitrogen/Creatinine [Mass ratio] 22.7 mg/mg 10-20 [facility] Laboratory - Hematology and Cell countsOrdered By: [facility] Renee on 12-11-2023 MCH (RBC) [Entitic mass] 30.2 pg 27.0-32.0 [facility] MCHC (RBC) [Mass/Vol] 32.1 g/dL 32-36 [facility] Nucleated RBC/100 WBC (Bld) [Ratio] 0 % 0-5 [facility] Platelet mean volume (Bld) [Entitic vol] 9.9 fL 6.2-12.0 [facility] Platelets (Bld) [#/Vol] 109 10*3/uL 150-450 [facility] No Panel InformationOrdered By: Alisa Duran on 12-11-2023 Streptococcus pneumoniae Antigen (M [facility] Estimated Creatinine Clearance Calc 48.20 ml/min [facility] Estimated GFR (MDRD) Amer 82 mL/min >60 [facility] Comment on above: GFR Calc Estimated GFR (MDRD) Non-Af Amer 67 mL/min >60 [facility] Comment on above: Non- GFR Calc RBC Auto (Bld) [#/Vol]Ordere d By: Alisa Duran on 12-11-2023 RBC (Bld) [#/Vol] 4.80 10*6/uL 4.6-6.2 [facility] Serum or plasma calcium tony urement (mass/volume)Ordered By: Alisa Duran on 12-11-2023 Calcium [Mass/Vol] 8.6 mg/dL 8.5-10.[address] [facility] Serum or plasma creatinine m easurement (mass/volume)Ordered By: Alisa Duran on 12-11-2023 Creatinine [Mass/Vol] 1.10 mg/dL 0.70-1.30 [facility] Comment on above: The validity of the calculated GFR & GFRAA in patients over 70 years has not been determined. Clinical correlation is essential. Serum or plasma urea nitroge n measurement (mass/volume)Ordered By: Alisa Duran on 12-11-2023 Urea nitrogen [Mass/Vol] 25 mg/dL 7-18 [facility] Thin prep Papanicolaou smear with manual screeningOrdered By: Alisa Duran on 12-11-2023 Thin prep Papanicolaou smear with manual screening 2.8 g/dL 3.2-5.0 [facility] Thin prep Papanicolaou smear with manual screening 42 U/L 15-37 [facility] Thin prep Papanicolaou smear with manual screening 4 5-15 [facility] Absolute lymphocyte countOrd ered By: Miquel Ruggiero on 12-10-2023 Lymphocytes Auto (Unsp spec) [#/Vol] 0.96 10*3/uL 0.83-4.51 [facility] Automated lymphocyte count a s percentage of total leukocytesOrdered By: Miquel Ruggiero on 12-10-2023 Lymphocytes/100 WBC Auto (Unsp spec) 6.1 % 19-41 [facility] Basophil percentageOrdered B y: Miquel Ruggiero on 12-10-2023 Basophil percentage 0 SEEN /hpf 0-5 [facility] Basophils/100 WBC (Bld) 0.4 % 0-1 [facility] Chloride [Moles/Vol] 111 mmol/L 98-107 [facility] Eosinophils/100 WBC (Bld) 0.1 % 0-5 [facility] Glucose [Mass/Vol] 177 mg/dL 74-[address] [facility] Comment on above: Fasting Glucose resu lt greater than or equal to 126 mg/dL suggests DIABETES MELLITUS per A.D.A. criteria. Hemoglobin (Bld) [Mass/Vol] 16.4 g/dL 13.0-16.5 [facility] Monocytes/100 WBC (Bld) 8.6 % 0-10 [facility] Neutrophils (Bld) [#/Vol] 13.2 10*3/uL 2.0-7.7 [facility] Neutrophils/100 WBC (Bld) 84.3 % 47-70 [facility] Potassium [Moles/Vol] 4.0 mmol/L 3.5-5.1 [facility] Sodium [Moles/Vol] 141 mmol/L 136-[address] [facility] WBC (Bld) [#/Vol] 15.7 10*3/uL 4.4-11.0 [facility] Basophil percentageOrdered B y: Alisa White on 12-10-2023 Bilirubin [Mass/Vol] 1.70 mg/dL 0.20-1.00 [facility] Comment on above: For patients on eltr ombopag therapy, use of Dimension [place] TBIL is not recommended. LDH [Catalytic activity/Vol] 296 U/L 87-241 [facility] Protein [Mass/Vol] 6.9 g/dL 6.4-8.[address] [facility] Bilirubin Test strip Ql (U)O rdered By: Miquel Ruggiero on 12-10-2023 Bilirubin Ql (U) 1 mg/dL Negative [facility] Comment on above: COLOR OF URINE MAY A FFECT DIPSTICK RESULTS. Determination of erythrocyte mean corpuscular volume (MCV)Ordered By: Miquel Ruggiero on 12-10-2023 MCV (RBC) [Entitic vol] 90.8 fL 80-94 [facility] Direct bilirubinOrdered By: Alisa Duran on 12-10-2023 Bilirubin.direct [Mass/Vol] 0.44 mg/dL 0.00-0.30 [facility] Erythrocyte distribution wid th ratioOrdered By: Miquel Ruggiero on 12-10-2023 Erythrocyte distribution width (RBC) [Ratio] 13.6 % 11.6-14.6 [facility] Erythrocyte distribution wid th standard deviationOrdered By: Miquel Ruggiero on 12-10-2023 Erythrocyte distribution width (RBC) [Entitic vol] 45.0 fL 35.1-43.9 [facility] Erythrocyte sedimentation ra teOrdered By: Alisa Duran on 12-10-2023 ESR (Bld) [Velocity] 16 mm/h 0-20 [facility] Hematocrit Auto (Bld) [Volum e fraction]Ordered By: Miquel Ruggiero on 12-10-2023 Hematocrit (Bld) [Volume fraction] 49.4 % 40-54 [facility] Immature granulocytes/100 WB C Auto (Bld)Ordered By: Miquel Ruggiero on 12-10-2023 Immature granulocytes/100 WBC (Bld) 0.500 % 0.0-0.9 [facility] Comment on above: IG% - Immature Granu locytes (promyelocytes, myelocytes and metamyelocytes) > 1% indicates that a LEFT SHIFT is Present. Ketones Test strip Ql (U)Ord ered By: Miquel Ruggiero on 12-10-2023 Ketones Ql (U) 5 mg/dl Negative [facility] Laboratory - Chemistry and C hemistry - challengeOrdered By: Alisa Duran on 12-10-2023 ALP [Catalytic activity/Vol] 77 U/L 45-117 [facility] ALT [Catalytic activity/Vol] 33 U/L 16-61 [facility] CK [Catalytic activity/Vol] 102 U/L 39-308 [facility] Ferritin [Mass/Vol] 122 ng/mL 26-388 [facility] Globulin (S) [Mass/Vol] 3.8 g/dL 2.2-4.2 [facility] Magnesium [Mass/Vol] 1.9 mg/dL 1.6-2.6 [facility] Natriuretic peptide B (Bld) [Mass/Vol] 128.7 pg/mL 0-100 [facility] Laboratory - Chemistry and C hemistry - challengeOrdered By: Miquel Ruggiero on 12-10-2023 CO2 [Moles/Vol] 24.0 mmol/L 21.0-32.0 [facility] Urea nitrogen/Creatinine [Mass ratio] 15.7 mg/mg 10-20 [facility] Laboratory - Hematology and Cell countsOrdered By: Miquel Ruggiero on 12-10-2023 MCH (RBC) [Entitic mass] 30.1 pg 27.0-32.0 [facility] MCHC (RBC) [Mass/Vol] 33.2 g/dL 32-36 [facility] Nucleated RBC/100 WBC (Bld) [Ratio] 0 % 0-5 [facility] Platelet mean volume (Bld) [Entitic vol] 10.0 fL 6.2-12.0 [facility] Platelets (Bld) [#/Vol] 142 10*3/uL 150-450 [facility] Laboratory - Microbiology an d Antimicrobial susceptibilityOrdered By: Miquel Ruggiero on 12-10-2023 SARS-CoV-2 (COVID-19) RNA SONG+probe Ql (Unsp spec) SARS-CoV-2 (COVID 19) [facility] Mucus LM Ql (Urine sed)Order ed By: Miquel Ruggiero on 12-10-2023 Mucus Ql (Urine sed) 3+ /hpf [facility] Nitrite Test strip Ql (U)Ord ered By: Miquel Ruggiero on 12-10-2023 Nitrite Ql (U) Negative Negative [facility] No Panel InformationOrdered By: Miquel Ruggiero on 12-10-2023 Urine RBC 0-5 SEEN /hpf 0-5 [facility] Estimated GFR (MDRD) Amer 51 mL/min >60 [facility] Comment on above: GFR Calc Estimated GFR (MDRD) Non-Af Amer 42 mL/min >60 [facility] Comment on above: Non- GFR Calc No Panel InformationOrdered By: Alisa Duran on 12-10-2023 C-Reactive Protein Extended Range 49.00 mg/L 0.0-3.0 [facility] Comment on above: C-Reactive Protein ( CRP) provides useful information for thediagnosis, therapy and monitoring of inflammatory processesand associated diseases. For the evaluation of Relative Riskfor Cardiovascular Disease, a High Sensitivity CRP (HSCRP)should be ordered. D-Dimer Quantitative (PE/DVT) 0.92 FEU/ug/m 0.27-0.49 [facility] Comment on above: D-Dimer ELEVATED (>0 .49): Additional studies and clinicalassessments are indicated to conclude diagnosis of:Deep Vein Thrombosis (DVT) or Pulmonary Embolism (PE)CRITICAL VALUE VERIFIED. CALLED TO [facility] GUPTA12/10/23 1143 Jossie Durham.RESULTS READ BACK BY SAME . Troponin I High Sensitivity 10 pg/mL 3.0-78.0 [facility] Comment on above: Please Note: [place] t Units and Gender Specific Reference Ranges. For more information see Policy Stat Procedure [place] High Sensitivity Troponin (TNIH) and attachments. Protein Test strip Ql (U)Ord ered By: Miquel Ruggiero on 12-10-2023 Protein Ql (U) 30 mg/dl Negative [facility] RBC Auto (Bld) [#/Vol]Ordere d By: Miquel Ruggiero on 12-10-2023 RBC (Bld) [#/Vol] 5.44 10*6/uL 4.6-6.2 [facility] Serum or plasma calcium tony urement (mass/volume)Ordered By: Miquel Ruggiero on 12-10-2023 Calcium [Mass/Vol] 9.0 mg/dL 8.5-10.[address] [facility] Serum or plasma creatinine m easurement (mass/volume)Ordered By: Miquel Ruggiero on 12-10-2023 Creatinine [Mass/Vol] 1.66 mg/dL 0.70-1.30 [facility] Comment on above: The validity of the calculated GFR & GFRAA in patients over 70 years has not been determined. Clinical correlation is essential. Serum or plasma urea nitroge n measurement (mass/volume)Ordered By: Miquel Ruggiero on 12-10-2023 Urea nitrogen [Mass/Vol] 26 mg/dL 7-18 [facility] Serum procalcitonin measurem entOrdered By: Alisa Duran on 12-10-2023 Procalcitonin [Mass/Vol] 0.17 ng/mL 0.00-0.09 [facility] Comment on above: A procalcitonin (PCT ) level above 2.0 ng/mL on the first day of ICU admission is associated with a high risk for progression to severe sepsis and/or septic shock. A PCT level below 0.5 ng/mL on the first day of ICU admission is associated with a low risk for progression to severe and/or septic shock. Note: Concentrations <0.5 ng/mL do not exclude an infection on account of localized infections (without systemic signs) which can be associated with such low concentrations, or a systemic infection in its initial stages (<6 hours). Furthermore, increased procalcitonin can occur without infection. PCT concentrations between 0.5 and 2.0 ng/mL should be interpreted taking into account the patient's history. It is recommended to retest PCT within 6-24 hours if any concentrations <2 ng/mL are obtained. Squamous epithelial cells de tection in urine sediment by light microscopyOrdered By: Miquel Ruggiero on 12-10-2023 Epithelial cells.squamous LM Ql (Urine sed) 0 SEEN /hpf 0-5 [facility] Thin prep Papanicolaou smear with manual screeningOrdered By: Alisa Duran on 12-10-2023 Thin prep Papanicolaou smear with manual screening 3.1 g/dL 3.2-5.0 [facility] Thin prep Papanicolaou smear with manual screening 31 U/L 15-37 [facility] Thin prep Papanicolaou smear with manual screeningOrdered By: Miquel Ruggiero on 12-10-2023 Thin prep Papanicolaou smear with manual screening 6 5-15 [facility] Urine blood detectionOrdered By: Miquel Ruggiero on 12-10-2023 RBC Ql (U) 10 /ul Negative [facility] Urine clarityOrdered By: Aleksander Ruggiero on 12-10-2023 Clarity (U) Clear Clear [facility] Urine color determinationOrd ered By: Miquel Ruggiero on 12-10-2023 Color (U) Yellow Yellow [facility] Urine glucose detectionOrder ed By: Miquel Ruggiero on 12-10-2023 Glucose Ql (U) Normal mg/dl Normal [facility] Urine leukocyte esterase det ection by dipstickOrdered By: Miquel Ruggiero on 12-10-2023 Leukocyte esterase Test strip Ql (U) 25 /ul Negative [facility] Urine pHOrdered By: Miquel boyle on 12-10-2023 pH (U) 5.0 [pH] 5.0 - 8.0 [facility] Urine sediment bacteria coun t by microscopy (number/high power field)Ordered By: Miquel Ruggiero on 12-10-2023 Bacteria LM.HPF (Urine sed) [#/Area] 0 /[HPF] None Seen [facility] Urine specific gravity measu rementOrdered By: Miquel Ruggiero on 12-10-2023 Specific gravity (U) [Rel density] 1.025 1.002-1.030 [facility] Urine urobilinogen measureme ntOrdered By: Miquel Ruggiero on 12-10-2023 Urobilinogen Ql (U) 1 mg/dl Normal [facility] Whole blood hemoglobin A1c/t otal hemoglobin ratio (mass fraction)Ordered By: Alisa Duran on 12-10-2023 HbA1c (Bld) [Mass fraction] 5.9 % 3.8-5.6 [facility] Comment on above: Normal < 5.7 % Predi abetic 5.7 - 6.4 % Diabetic >or= 6.5 % Please note range changes. SPEon 04-21-2023 SPE Interpretation There is polyclonal hypergammaglobulinemia . This may be seen in chronic inflammatory or infectious diseases, or in patients receiving intravenous immunoglobulin therapy. Normal [facility] ([place]) Comment on above: Result Comment: Elec tronically Signed by: KATIE CHRISTIANSON MD 04/21/2023 13:55 EDT Performed By: #### G FR, PHOS, PSA, BMP, VIDH #### [address] [address] #### PTH, HCV1 #### [address] [address] Albumin 3.3 G/dL Normal 3.3-5.0 [facility] ([place]) Comment on above: Performed By: #### G FR, PHOS, PSA, BMP, VIDH #### [place] [address] #### PTH, HCV1 #### [place] [address] Alpha 1 0.2 G/dL Normal 0.1-0.4 [facility] ([place]) Comment on above: Performed By: #### G FR, PHOS, PSA, BMP, VIDH #### [place] [address] #### PTH, HCV1 #### [place] [place] [address] Alpha 2 0.9 G/dL Normal 0.6-1.2 [facility] ([place]) Comment on above: Performed By: #### G FR, PHOS, PSA, BMP, VIDH #### [place] [address] #### PTH, HCV1 #### [place] [address] Beta 0.9 G/dL Normal 0.6-1.3 [facility] ([place]) Comment on above: Performed By: #### G FR, PHOS, PSA, BMP, VIDH #### [place] [address] #### PTH, HCV1 #### [place] [address] Gamma 1.7 G/dL High 0.7-1.6 [facility] ([place]) Comment on above: Performed By: #### G FR, PHOS, PSA, BMP, VIDH #### [place] [address] #### PTH, HCV1 #### [place] [address] .Auto Diffon 04-20-2023 Basophil, Absolute 0.1 10 3/mcL Normal 0.0-0.2 [facility] ([place]) Comment on above: Performed By: #### G FR, PHOS, PSA, BMP, VIDH #### [place] [address]697 #### PTH, HCV1 #### [address] [address] Basophils/100 WBC (Bld) 1.1 % Normal 0.0-2.5 A [facility] ([place]) Comment on above: Performed By: #### G FR, PHOS, PSA, BMP, VIDH #### [place] [address] #### PTH, HCV1 #### [address] [address] Eosinophil, Absolute 0.2 10 3/mcL Normal 0.0-0.4 [facility] ([place]) Comment on above: Performed By: #### G FR, PHOS, PSA, BMP, VIDH #### [place] [address] #### PTH, HCV1 #### [address] [address] Eosinophils/100 WBC (Bld) 2.2 % Normal 0.0-7.0 [facility] ([place]) Comment on above: Performed By: #### G FR, PHOS, PSA, BMP, VIDH #### [place] [address] #### PTH, HCV1 #### [address] [address] Lymphocyte, Absolute 2.8 10 3/mcL Normal 0.8-3.9 [facility] ([place]) Comment on above: Performed By: #### G FR, PHOS, PSA, BMP, VIDH #### [place] [address] #### PTH, HCV1 #### [address] [address] Lymphocytes/100 WBC (Bld) 27.3 % Normal 10.0-50.0 [facility] ([place]) Comment on above: Performed By: #### G FR, PHOS, PSA, BMP, VIDH #### [place] [address] #### PTH, HCV1 #### [facility] [address] [place] [address] Monocyte, Absolute 0.8 10 3/mcL Normal 0.2-1.0 [facility] ([place]) Comment on above: Performed By: #### G FR, PHOS, PSA, BMP, VIDH #### [address] [address] #### PTH, HCV1 #### [facility] [address] [place] [address] Monocytes/100 WBC (Bld) 8.3 % Normal 1.7-13.0 A [facility] ([place]) Comment on above: Performed By: #### G FR, PHOS, PSA, BMP, VIDH #### [address] [address] #### PTH, HCV1 #### [address] [address] Neutrophils/100 WBC (Bld) 61.1 % Normal 37.0-80.0 [facility] ([place]) Comment on above: Performed By: #### G FR, PHOS, PSA, BMP, VIDH #### [address] [address] #### PTH, HCV1 #### [address] [address] .GFRon 04-20-2023 GFR 61 ml/min/1.73sqm Normal [facility] ([place]) Comment on above: Result Comment: GFR Population mean for , Non- Americans Ages 20-29 = 116 mL/min/1.73 sq.m. Ages 30-39 = 107 mL/min/1.73 sq.m. Ages 40-49 = 99 mL/min/1.73 sq.m. Ages 50-59 = 93 mL/min/1.73 sq.m. Ages 60-69 = 85 mL/min/1.73 sq.m. Ages 70+ = 75 mL/min/1.73 sq.m. Chronic Kidney Disease: Less than 60 mL/min/1.73 square meters End Stage Renal Disease: Less than 15 mL/min/1.73 square meters Performed By: #### G FR, PHOS, PSA, BMP, VIDH #### [address] [address] #### PTH, HCV1 #### [address] [address] GFR Non- 51 ml/min/1.73sqm Normal [facility] ([place]) Comment on above: Result Comment: GFR Population mean for , Non- Americans Ages 20-29 = 116 mL/min/1.73 sq.m. Ages 30-39 = 107 mL/min/1.73 sq.m. Ages 40-49 = 99 mL/min/1.73 sq.m. Ages 50-59 = 93 mL/min/1.73 sq.m. Ages 60-69 = 85 mL/min/1.73 sq.m. Ages 70+ = 75 mL/min/1.73 sq.m. Chronic Kidney Disease: Less than 60 mL/min/1.73 square meters End Stage Renal Disease: Less than 15 mL/min/1.73 square meters Performed By: #### G FR, PHOS, PSA, BMP, VIDH #### [address] [address] #### PTH, HCV1 #### [address] [address] .NEUABSon 04-20-2023 Neutrophil, Absolute 6.2 10 3/mcL Normal 2.9-6.2 [facility] ([place]) Comment on above: Performed By: #### G FR, PHOS, PSA, BMP, VIDH #### [address] [address] #### PTH, HCV1 #### [address] [address] CBCon 04-20-2023 Erythrocyte distribution width (RBC) [Ratio] 14.1 % Normal 11.5-14.5 [facility] ([place]) Comment on above: Performed By: #### G FR, PHOS, PSA, BMP, VIDH #### [address] [address] #### PTH, HCV1 #### [place] [address] Hematocrit (Bld) [Volume fraction] 48.1 % Normal 42.0-52.0 [facility] ([place]) Comment on above: Performed By: #### G FR, PHOS, PSA, BMP, VIDH #### [place] [address] #### PTH, HCV1 #### [place] [address] Hgb 16.3 G/dL Normal 14.0-18.0 [facility] ([place]) Comment on above: Performed By: #### G FR, PHOS, PSA, BMP, VIDH #### [place] [address] #### PTH, HCV1 #### [place] [address] MCH (RBC) [Entitic mass] 30.4 pg Normal 27.0-31.2 [facility] ([place]) Comment on above: Performed By: #### G FR, PHOS, PSA, BMP, VIDH #### [place] [address] #### PTH, HCV1 #### [place] [address] MCHC 34.0 G/dL Normal 31.8-35.4 [facility] ([place]) Comment on above: Performed By: #### G FR, PHOS, PSA, BMP, VIDH #### [place] [address] #### PTH, HCV1 #### [place] [address] MCV (RBC) [Entitic vol] 89.6 fL Normal 80.0-94.0 A [facility] ([place]) Comment on above: Performed By: #### G FR, PHOS, PSA, BMP, VIDH #### [place] [address] #### PTH, HCV1 #### [place] [address] Platelet 171 10 3/mcL Normal 130-400 [facility] ([place]) Comment on above: Performed By: #### G FR, PHOS, PSA, BMP, VIDH #### [address] [address] #### PTH, HCV1 #### [place] [address] Platelet mean volume (Bld) [Entitic vol] 8.0 fL Normal 7.4-10.4 [facility] ([place]) Comment on above: Performed By: #### G FR, PHOS, PSA, BMP, VIDH #### [place] [address] #### PTH, HCV1 #### [place] [address] RBC 5.37 10 6/mcL Normal 4.04-6.13 [facility] ([place]) Comment on above: Performed By: #### G FR, PHOS, PSA, BMP, VIDH #### [place] [address] #### PTH, HCV1 #### [place] [address] WBC 10.1 10 3/mcL Normal 4.6-10.8 [facility] ([place]) Comment on above: Performed By: #### G FR, PHOS, PSA, BMP, VIDH #### [place] [address] #### PTH, HCV1 #### [place] [address] CMPon 04-20-2023 Albumin Level 3.4 G/dL Normal 3.4-4.8 [facility] ([place]) Comment on above: Performed By: #### G FR, PHOS, PSA, BMP, VIDH #### [place] [address] #### PTH, HCV1 #### [address] [address] Albumin/Globulin [Mass ratio] 0.9 {ratio} Low 1.1-2.5 [facility] ([place]) Comment on above: Performed By: #### G FR, PHOS, PSA, BMP, VIDH #### [place] [address] #### PTH, HCV1 #### [place] [address] ALP [Catalytic activity/Vol] 89 U/L Normal 40-135 [facility] ([place]) Comment on above: Performed By: #### G FR, PHOS, PSA, BMP, VIDH #### [place] [address] #### PTH, HCV1 #### [place] [address] ALT [Catalytic activity/Vol] 22 U/L Normal 16-63 [facility] ([place]) Comment on above: Performed By: #### G FR, PHOS, PSA, BMP, VIDH #### [place] [address] #### PTH, HCV1 #### [place] [address] AST [Catalytic activity/Vol] 24 U/L Normal 10-40 [facility] ([place]) Comment on above: Performed By: #### G FR, PHOS, PSA, BMP, VIDH #### [place] [address] #### PTH, HCV1 #### [place] [address] Bili Total 1.0 mg/dL Normal 0.2-1.0 [facility] ([place]) Comment on above: Result Comment: Use of this assay is not recommended for patients undergoing treatment with eltrombopag due to the potential for falsely elevated results. Performed By: #### G FR, PHOS, PSA, BMP, VIDH #### [place] [address] #### PTH, HCV1 #### [address] [address] BUN/Creatinine Ratio 13 ratio Normal 7-27 [facility] ([place]) Comment on above: Performed By: #### G FR, PHOS, PSA, BMP, VIDH #### [address] [address] #### PTH, HCV1 #### [address] [address] Calcium [Mass/Vol] 9.5 mg/dL Normal 8.4-10.2 [facility] ([place]) Comment on above: Performed By: #### G FR, PHOS, PSA, BMP, VIDH #### [address] [address] #### PTH, HCV1 #### [place] [address] Chloride [Moles/Vol] 107 mmol/L Normal 98-107 [facility] ([place]) Comment on above: Performed By: #### G FR, PHOS, PSA, BMP, VIDH #### [address] [address] #### PTH, HCV1 #### [address] [address] CO2 [Moles/Vol] 30 mmol/L Normal 23-31 [facility] ([place]) Comment on above: Performed By: #### G FR, PHOS, PSA, BMP, VIDH #### [address] [address] #### PTH, HCV1 #### [address] [address] Creatinine [Mass/Vol] 1.34 mg/dL High 0.70-1.30 [facility] ([place]) Comment on above: Performed By: #### G FR, PHOS, PSA, BMP, VIDH #### [address] [address] #### PTH, HCV1 #### [address] [address] Electrolyte Balance 5.0 mEq/L Normal 4.0-15.0 [facility] ([place]) Comment on above: Performed By: #### G FR, PHOS, PSA, BMP, VIDH #### [address] [address] #### PTH, HCV1 #### [address] [address] Globulin 3.7 G/dL Normal [facility] ([place]) Comment on above: Performed By: #### G FR, PHOS, PSA, BMP, VIDH #### [address] [address] #### PTH, HCV1 #### [address] [address] Glucose [Mass/Vol] 107 mg/dL Normal 83-110 [facility] ([place]) Comment on above: Performed By: #### G FR, PHOS, PSA, BMP, VIDH #### [place] [id number] #### PTH, HCV1 #### [address] [address] Potassium [Moles/Vol] 4.9 mmol/L Normal 3.5-5.1 [facility] ([place]) Comment on above: Performed By: #### G FR, PHOS, PSA, BMP, VIDH #### [address] [address] #### PTH, HCV1 #### [address] [address] Sodium [Moles/Vol] 142 mmol/L Normal 136-145 [facility] ([place]) Comment on above: Performed By: #### G FR, PHOS, PSA, BMP, VIDH #### [address] [address] #### PTH, HCV1 #### [address] [address] Total Protein 7.1 G/dL Normal 6.4-8.2 [facility] ([place]) Comment on above: Performed By: #### G FR, PHOS, PSA, BMP, VIDH #### [address] [address] #### PTH, HCV1 #### [address] [address] Urea nitrogen [Mass/Vol] 18 mg/dL Normal 7-18 [facility] ([place]) Comment on above: Performed By: #### G FR, PHOS, PSA, BMP, VIDH #### [address] [address] #### PTH, HCV1 #### [address] [address] LABORATORYOrdered By: SYSTEM SYSTEM on 04-20-2023 25-hydroxyvitamin D3 [Mass/Vol] 24.4 ng/mL Invalid Interpretation Code AO ADM SS Albumin BCP dye [Mass/Vol] 3.4 G/dL Invalid Interpretation Code 3.4 - 4.8 G/dL AO ADM SS Albumin/Globulin [Mass ratio] 0.9 {ratio} Invalid Interpretation Code 1.1 - 2.5 ratio AO ADM SS ALP [Catalytic activity/Vol] 89 U/L Invalid Interpretation Code 40 - 135 U/L AO ADM SS ALT With P-5'-P [Catalytic activity/Vol] 22 U/L Invalid Interpretation Code 16 - 63 U/L AO ADM SS AST With P-5'-P [Catalytic activity/Vol] 24 U/L Invalid Interpretation Code 10 - 40 U/L AO ADM SS Bilirubin [Mass/Vol] 1.0 mg/dL Invalid Interpretation Code 0.2 - 1.0 mg/dL AO ADM SS Calcium [Mass/Vol] 9.5 mg/dL Invalid Interpretation Code 8.4 - 10.2 mg/dL AO ADM SS Chloride [Moles/Vol] 107 mmol/L Invalid Interpretation Code 98 - 107 mmol/L AO ADM SS CO2 [Moles/Vol] 30 mmol/L Invalid Interpretation Code 23 - 31 mmol/L AO ADM SS Creatinine [Mass/Vol] 1.34 mg/dL Invalid Interpretation Code 0.70 - 1.30 mg/dL AO ADM SS Electrolyte Balance 5.0 mEq/L Invalid Interpretation Code 4.0 - 15.0 mEq/L AO ADM SS GFR/1.73 sq M.predicted among blacks MDRD (S/P/Bld) [Vol rate/Area] 61 ml/min/1.73sqm Invalid Interpretation Code AO Chemistry S GFR/1.73 sq M.predicted among non-blacks MDRD (S/P/Bld) [Vol rate/Area] 51 ml/min/1.73sqm Invalid Interpretation Code AO Chemistry S Globulin 3.7 G/dL Invalid Interpretation Code AO ADM SS Glucose [Mass/Vol] 107 mg/dL Invalid Interpretation Code 83 - 110 mg/dL AO ADM SS Parathyrin.intact [Mass/Vol] 108.4 pg/mL Invalid Interpretation Code 18.5 - 88.0 pg/mL AH ADM SS Phosphate [Mass/Vol] 4.4 mg/dL Invalid Interpretation Code 2.3 - 4.1 mg/dL AO ADM SS Potassium [Moles/Vol] 4.9 mmol/L Invalid Interpretation Code 3.5 - 5.1 mmol/L AO ADM SS Prostate specific Ag [Mass/Vol] 6.63 ng/mL Invalid Interpretation Code 0.00 - 4.00 ng/mL AO ADM SS Protein [Mass/Vol] 7.1 G/dL Invalid Interpretation Code 6.4 - 8.2 G/dL AO ADM SS Sodium [Moles/Vol] 142 mmol/L Invalid Interpretation Code 136 - 145 mmol/L AO ADM SS Urea nitrogen [Mass/Vol] 18 mg/dL Invalid Interpretation Code 7 - 18 mg/dL AO ADM SS Urea nitrogen/Creatinine [Mass ratio] 13 ratio Invalid Interpretation Code 7 - 27 ratio AO ADM SS LABORATORYOrdered By: Emelia Corbett on 04-20-2023 Basophil, Absolute 0.1 103/mcL Invalid Interpretation Code 0.0 - 0.2 10^3/mcL AO Workflow SS Basophils/100 WBC (Bld) 1.1 % Invalid Interpretation Code 0.0 - 2.5 % AO Workflow SS Cholesterol [Mass/Vol] 148 mg/dL Invalid Interpretation Code 0 - 200 mg/dL AO ADM SS Cholesterol in HDL [Mass/Vol] 47 mg/dL Invalid Interpretation Code 40 - 60 mg/dL AO ADM SS Cholesterol in LDL [Mass/Vol] 72 mg/dL Invalid Interpretation Code 0 - 130 mg/dL AO ADM SS Eosinophil, Absolute 0.2 103/mcL Invalid Interpretation Code 0.0 - 0.4 10^3/mcL AO Workflow SS Eosinophils/100 WBC (Bld) 2.2 % Invalid Interpretation Code 0.0 - 7.0 % AO Workflow SS Erythrocyte distribution width (RBC) [Ratio] 14.1 % Invalid Interpretation Code 11.5 - 14.5 % AO Workflow SS Hematocrit (Bld) [Volume fraction] 48.1 % Invalid Interpretation Code 42.0 - 52.0 % AO Workflow SS Hemoglobin (Bld) [Mass/Vol] 16.3 G/dL Invalid Interpretation Code 14.0 - 18.0 G/dL AO Workflow SS Lymphocyte, Absolute 2.8 103/mcL Invalid Interpretation Code 0.8 - 3.9 10^3/mcL AO Workflow SS Lymphocytes/100 WBC (Bld) 27.3 % Invalid Interpretation Code 10.0 - 50.0 % AO Workflow SS MCH (RBC) [Entitic mass] 30.4 pg Invalid Interpretation Code 27.0 - 31.2 pg AO Workflow SS MCHC 34.0 G/dL Invalid Interpretation Code 31.8 - 35.4 G/dL AO Workflow SS MCV (RBC) [Entitic vol] 89.6 fL Invalid Interpretation Code 80.0 - 94.0 fL AO Workflow SS Monocyte, Absolute 0.8 103/mcL Invalid Interpretation Code 0.2 - 1.0 10^3/mcL AO Workflow SS Monocytes/100 WBC (Bld) 8.3 % Invalid Interpretation Code 1.7 - 13.0 % AO Workflow SS Neutrophil, Absolute 6.2 103/mcL Invalid Interpretation Code 2.9 - 6.2 10^3/mcL AO Workflow SS Neutrophils/100 WBC (Bld) 61.1 % Invalid Interpretation Code 37.0 - 80.0 % AO Workflow SS Platelet mean volume (Bld) [Entitic vol] 8.0 fL Invalid Interpretation Code 7.4 - 10.4 fL AO Workflow SS Platelets (Bld) [#/Vol] 171 103/mcL Invalid Interpretation Code 130 - 400 10^3/mcL AO Workflow SS RBC (Bld) [#/Vol] 5.37 106/mcL Invalid Interpretation Code 4.04 - 6.13 10^6/mcL AO Workflow SS Triglyceride [Mass/Vol] 143 mg/dL Invalid Interpretation Code 0 - 150 mg/dL AO ADM SS WBC (Bld) [#/Vol] 10.1 103/mcL Invalid Interpretation Code 4.6 - 10.8 10^3/mcL AO Workflow SS LABORATORYOrdered By: Karma Hook on 04-20-2023 Protein [Mass/Vol] 7.0 G/dL Invalid Interpretation Code 5.7 - 8.2 G/dL AH ADM SS LIPIDon 04-20-2023 Cholesterol [Mass/Vol] 148 mg/dL Normal 0-200 [facility] ([place]) Comment on above: Result Comment: Chol esterol Reference Interval: Less than 200 Desirable 200-239 Borderline high risk 240 and above High risk Performed By: #### G FR, PHOS, PSA, BMP, VIDH #### [place] [address] #### PTH, HCV1 #### [address] [address] Cholesterol in HDL [Mass/Vol] 47 mg/dL Normal 40-60 [facility] ([place]) Comment on above: Performed By: #### G FR, PHOS, PSA, BMP, VIDH #### [place] [address] #### PTH, HCV1 #### [address] [address] Cholesterol in LDL [Mass/Vol] 72 mg/dL Normal 0-130 [facility] ([place]) Comment on above: Performed By: #### G FR, PHOS, PSA, BMP, VIDH #### [place] [address] #### PTH, HCV1 #### [address] [address] Triglyceride [Mass/Vol] 143 mg/dL Normal 0-150 A [facility] ([place]) Comment on above: Result Comment: Trig lyceride Reference Interval: Less than 150 Normal 150-199 Borderline high risk 200-499 High risk 500 or higher Very high risk Performed By: #### G FR, PHOS, PSA, BMP, VIDH #### [place] [address] #### PTH, HCV1 #### [address] [address] PHOSon 04-20-2023 Phosphate [Mass/Vol] 4.4 mg/dL High 2.3-4.1 [facility] ([place]) Comment on above: Performed By: #### G FR, PHOS, PSA, BMP, VIDH #### [address] [address] #### PTH, HCV1 #### [place] [address] PSAon 04-20-2023 Prostate Specific Antigen 6.63 ng/mL High 0.00-4.00 [facility] ([place]) Comment on above: Performed By: #### G FR, PHOS, PSA, BMP, VIDH #### [place] [address] #### PTH, HCV1 #### [place] [address] PTHon 04-20-2023 PTH, Intact 108.4 pg/mL High 18.5-88.0 [facility] ([place]) Comment on above: Performed By: #### G FR, PHOS, PSA, BMP, VIDH #### [place] [address] #### PTH, HCV1 #### [place] [address] SPEon 04-20-2023 Total Protein 7.0 G/dL Normal 5.7-8.2 [facility] ([place]) Comment on above: Result Comment: No te - New Reference Range in effect 20 Performed By: #### G FR, PHOS, PSA, BMP, VIDH #### [place] [address] #### PTH, HCV1 #### [place] [address] VIDHon 04-20-2023 Vit. D 25-Hydroxy 24.4 ng/mL Normal [facility] ([place]) Comment on above: Result Comment: Inte rpretive Values Based on Total 25(OH) Vitamin D: Deficient <20 ng/mL Insufficient 20 - <30 ng/mL Sufficient 30-100 ng/mL Performed By: #### G FR, PHOS, PSA, BMP, VIDH #### [facility] [address] [place], [place] [address] #### PTH, HCV1 #### [address] [address] US RENALon 03-18-2023 US RENAL ORIGINAL EXAMINATION: LIMITED RETROPERITONEAL ULTRASOUND03/16/2023 11:26 am Ultrasound retroperitoneum Complete: Attention Urinary tract COMPARISON: None HISTORY: ORDERING SYSTEM PROVIDED HISTORY: Reason for Exam: chronic kidney disease stage 3a, rule out obstruction, FINDINGS: Right kidney: 9.5 x 5.5 x 5.0 cm Left kidney: 9.0 x 5.4 x 4.9 cm Both kidneys show normal cortical thickness but mildly increased echogenicity. No pelvocaliectasis, stone or solid mass is seen in either kidney. There is a 2.5 cm simple cyst of the right kidney and 2.7 cm simple cyst of the left kidney. Other smaller cysts are also present bilaterally. There is no free fluid seen in the abdomen. Urinary bladder is suboptimally distended with volume of 98 cc. No wall abnormality or mass is seen. Postvoid volume is 50 cc.. Prostate is poorly visualized but is at least mild to moderately enlarged estimated volume 51 cc. IMPRESSION: Mildly increased renal echogenicity suggesting medical renal disease. No obstruction. Bilateral benign renal cysts. Interpreted by: Tramaine Haines MD Preliminary Report By: Tramaine Haines MD Electronically signed By Tramaine Haines MD Dictated Date: 03/18/2023 2:52:50 PM Prelim Date: 03/18/2023 2:54:59 PM Sign Date: 03/18/2023 2:54:59 PM Ordering Provider: ALEX Christina [facility] ([place]) US ABDOMEN [facility] 023 US ABDOMEN LIMITED ORIGINAL EXAMINATION: LIMITED ABDOMINAL ULTRASOUND03/16/2023 11:27 am Ultrasound of the RIGHT upper quadrant COMPARISON: None HISTORY: ORDERING SYSTEM PROVIDED HISTORY: Reason for Exam: hyperbilirubinemia, FINDINGS: The gallbladder is normal. There is no intrahepatic bile duct dilatation. The common duct is 6 mm at the tori hepatis. The visualized liver shows changes coarsening of echotexture and increased echogenicity with decreased through transmission. Although nonspecific, this is usually from fatty infiltration. No focal lesion is seen although some portions are obscured by artifacts from the ribs and body habitus.. The pancreas is almost completely obscured by bowel gas.. No ascites is seen in the RIGHT upper quadrant. The right kidney is evaluated separately. IMPRESSION: Hepatic steatosis or other diffuse hepatocellular disease. Interpreted by: Tramaine Haines MD Preliminary Report By: Tramaine Haines MD Electronically signed By Tramaine Haines MD Dictated Date: 03/16/2023 4:35:00 PM Prelim Date: 03/16/2023 4:36:45 PM Sign Date: 03/16/2023 4:36:45 PM Ordering Provider: ALEX Christina [facility] ([place]) XR CHEST 2 VIEWSon XR CHEST 2 VIEWS ORIGINAL EXAMINATION: TWO XRAY VIEWS OF THE CHEST02/23/2023 3:58 pm COMPARISON: Chest radiograph 08/05/2021 HISTORY: ORDERING SYSTEM PROVIDED HISTORY: Reason for Exam: crackles left lung base, no current complaints, previous heart valve replacement FINDINGS: The cardiomediastinal silhouette is stable. Patient is status post TAVR. No focal consolidation or pulmonary edema is seen. Calcified lymph node in the AP window region. No pneumothorax or pleural effusion is identified. No acute osseous abnormalities. Scattered degenerative changes. Suspect lung hyperexpansion on the lateral view with increased retrosternal clear space. IMPRESSION: No acute radiographic findings. Stable cardiomegaly with previous aortic valve replacement. Question background of COPD. I have personally reviewed the images of this examination and agree with the resident's findings and interpretation. Interpreted by: Tramaine Haines MD Preliminary Report By: Carlotta Rosas Electronically signed By Tramaine Haines MD Dictated Date: 02/24/2023 3:01:25 PM Prelim Date: 02/24/2023 3:07:25 PM Sign Date: 02/24/2023 3:07:25 PM Ordering Provider: ALEX Christina [facility] ([place]) .Auto Diffon 02-23-2023 Basophil, Absolute 0.1 10 3/mcL Normal 0.0-0.2 [facility]) Comment on above: Performed By: #### G FR, PHOS, PSA, BMP, VIDH #### [place] [address] #### PTH, HCV1 #### [address] [address] Basophils/100 WBC (Bld) 1.0 % Normal 0.0-2.5 A [facility] ([place]) Comment on above: Performed By: #### G FR, PHOS, PSA, BMP, VIDH #### [address] [address] #### PTH, HCV1 #### [address] [address] Eosinophil, Absolute 0.2 10 3/mcL Normal 0.0-0.4 [facility] ([place]) Comment on above: Performed By: #### G FR, PHOS, PSA, BMP, VIDH #### [place] [address] #### PTH, HCV1 #### [address] [address] Eosinophils/100 WBC (Bld) 1.5 % Normal 0.0-7.0 [facility] ([place]) Comment on above: Performed By: #### G FR, PHOS, PSA, BMP, VIDH #### [place] [address] #### PTH, HCV1 #### [address] [address] Lymphocyte, Absolute 3.4 10 3/mcL Normal 0.8-3.9 [facility] ([place]) Comment on above: Performed By: #### G FR, PHOS, PSA, BMP, VIDH #### [place] [address] #### PTH, HCV1 #### [address] [address] Lymphocytes/100 WBC (Bld) 29.7 % Normal 10.0-50.0 [facility] ([place]) Comment on above: Performed By: #### G FR, PHOS, PSA, BMP, VIDH #### [place] [address] #### PTH, HCV1 #### [address] [address] Monocyte, Absolute 1.2 10 3/mcL High 0.2-1.0 [facility] ([place]) Comment on above: Performed By: #### G FR, PHOS, PSA, BMP, VIDH #### [address] [address] #### PTH, HCV1 #### [address] [address] Monocytes/100 WBC (Bld) 10.5 % Normal 1.7-13.0 A [facility] ([place]) Comment on above: Performed By: #### G FR, PHOS, PSA, BMP, VIDH #### [address] [address] #### PTH, HCV1 #### [address] [address] Neutrophils/100 WBC (Bld) 57.3 % Normal 37.0-80.0 [facility] ([place]) Comment on above: Performed By: #### G FR, PHOS, PSA, BMP, VIDH #### [address] [address] #### PTH, HCV1 #### [address] [address] .GFRon 02-23-2023 GFR Non- 50 ml/min/1.73sqm Normal [facility] ([place]) Comment on above: Result Comment: GFR Population mean for , Non- Americans Ages 20-29 = 116 mL/min/1.73 sq.m. Ages 30-39 = 107 mL/min/1.73 sq.m. Ages 40-49 = 99 mL/min/1.73 sq.m. Ages 50-59 = 93 mL/min/1.73 sq.m. Ages 60-69 = 85 mL/min/1.73 sq.m. Ages 70+ = 75 mL/min/1.73 sq.m. Chronic Kidney Disease: Less than 60 mL/min/1.73 square meters End Stage Renal Disease: Less than 15 mL/min/1.73 square meters Performed By: #### G FR, PHOS, PSA, BMP, VIDH #### [address] [address] #### PTH, HCV1 #### [address] [address] GFR 61 ml/min/1.73sqm Normal [facility] ([place]) Comment on above: Result Comment: GFR Population mean for , Non- Americans Ages 20-29 = 116 mL/min/1.73 sq.m. Ages 30-39 = 107 mL/min/1.73 sq.m. Ages 40-49 = 99 mL/min/1.73 sq.m. Ages 50-59 = 93 mL/min/1.73 sq.m. Ages 60-69 = 85 mL/min/1.73 sq.m. Ages 70+ = 75 mL/min/1.73 sq.m. Chronic Kidney Disease: Less than 60 mL/min/1.73 square meters End Stage Renal Disease: Less than 15 mL/min/1.73 square meters Performed By: #### G FR, PHOS, PSA, BMP, VIDH #### [place] [address] #### PTH, HCV1 #### [address] [address] .NEUABSon 02-23-2023 Neutrophil, Absolute 6.6 10 3/mcL High 2.9-6.2 [facility] ([place]) Comment on above: Performed By: #### G FR, PHOS, PSA, BMP, VIDH #### [place] [id number] #### PTH, HCV1 #### [address] [address] .Urinalysis Microscopic (AO) on 02-23-2023 UA Bacteria Trace Abnormal [facility] ([place]) Comment on above: Performed By: #### G FR, PHOS, PSA, BMP, VIDH #### [place] [id number] #### PTH, HCV1 #### [place] [address] UA Hyal Cast 0-5 Abnormal [facility] ([place]) Comment on above: Performed By: #### G FR, PHOS, PSA, BMP, VIDH #### [address] [address] #### PTH, HCV1 #### [place] [address] UA Mucous 2+ /hpf Normal [facility] ([place]) Comment on above: Performed By: #### G FR, PHOS, PSA, BMP, VIDH #### [place] [address] #### PTH, HCV1 #### [place] [address] UA RBC 0-5 Abnormal None Seen [facility] ([place]) Comment on above: Performed By: #### G FR, PHOS, PSA, BMP, VIDH #### [place] [address] #### PTH, HCV1 #### [place] [address] UA Squam Epithelial None Seen Normal None Seen [facility] ([place]) Comment on above: Performed By: #### G FR, PHOS, PSA, BMP, VIDH #### [place] [address] #### PTH, HCV1 #### [place] [address] UA WBC 0-5 Abnormal None Seen [facility] ([place]) Comment on above: Performed By: #### G FR, PHOS, PSA, BMP, VIDH #### [place] [address] #### PTH, HCV1 #### [place] [address] CBCon 02-23-2023 Erythrocyte distribution width (RBC) [Ratio] 14.1 % Normal 11.5-14.5 [facility] ([place]) Comment on above: Performed By: #### G FR, PHOS, PSA, BMP, VIDH #### [place] [address] #### PTH, HCV1 #### [place] [address] Hematocrit (Bld) [Volume fraction] 50.5 % Normal 42.0-52.0 [facility] ([place]) Comment on above: Performed By: #### G FR, PHOS, PSA, BMP, VIDH #### [place] [address] #### PTH, HCV1 #### [place] [address] Hgb 16.8 G/dL Normal 14.0-18.0 [facility] ([place]) Comment on above: Performed By: #### G FR, PHOS, PSA, BMP, VIDH #### [place] [address] #### PTH, HCV1 #### [place] [address] MCH (RBC) [Entitic mass] 30.0 pg Normal 27.0-31.2 [facility] ([place]) Comment on above: Performed By: #### G FR, PHOS, PSA, BMP, VIDH #### [place] [address] #### PTH, HCV1 #### [place] [address] MCHC 33.3 G/dL Normal 31.8-35.4 [facility] ([place]) Comment on above: Performed By: #### G FR, PHOS, PSA, BMP, VIDH #### [place] [address] #### PTH, HCV1 #### [place] [address] MCV (RBC) [Entitic vol] 89.9 fL Normal 80.0-94.0 A [facility] ([place]) Comment on above: Performed By: #### G FR, PHOS, PSA, BMP, VIDH #### [place] [address] #### PTH, HCV1 #### [address] [address] Platelet 206 10 3/mcL Normal 130-400 [facility] ([place]) Comment on above: Performed By: #### G FR, PHOS, PSA, BMP, VIDH #### [place] [address] #### PTH, HCV1 #### [place] [address] Platelet mean volume (Bld) [Entitic vol] 7.9 fL Normal 7.4-10.4 [facility] ([place]) Comment on above: Performed By: #### G FR, PHOS, PSA, BMP, VIDH #### [place] [address] #### PTH, HCV1 #### [place] [address] RBC 5.62 10 6/mcL Normal 4.04-6.13 [facility] ([place]) Comment on above: Performed By: #### G FR, PHOS, PSA, BMP, VIDH #### [place] [address] #### PTH, HCV1 #### [place] [address] WBC 11.5 10 3/mcL High 4.6-10.8 [facility] ([place]) Comment on above: Performed By: #### G FR, PHOS, PSA, BMP, VIDH #### [place] [address] #### PTH, HCV1 #### [place] [address] CMPon 02-23-2023 Albumin Level 3.5 G/dL Normal 3.4-4.8 [facility] ([place]) Comment on above: Performed By: #### G FR, PHOS, PSA, BMP, VIDH #### [place] [address] #### PTH, HCV1 #### [address] [address] Albumin/Globulin [Mass ratio] 0.9 {ratio} Low 1.1-2.5 [facility] ([place]) Comment on above: Performed By: #### G FR, PHOS, PSA, BMP, VIDH #### [place] [address] #### PTH, HCV1 #### [place] [address] ALP [Catalytic activity/Vol] 101 U/L Normal 40-135 [facility] ([place]) Comment on above: Performed By: #### G FR, PHOS, PSA, BMP, VIDH #### [place] [address] #### PTH, HCV1 #### [place] [address] ALT [Catalytic activity/Vol] 31 U/L Normal 16-63 [facility] ([place]) Comment on above: Performed By: #### G FR, PHOS, PSA, BMP, VIDH #### [place] [address] #### PTH, HCV1 #### [place] [address] AST [Catalytic activity/Vol] 32 U/L Normal 10-40 [facility] ([place]) Comment on above: Performed By: #### G FR, PHOS, PSA, BMP, VIDH #### [place] [address] #### PTH, HCV1 #### [place] [id number] Bili Total 1.2 mg/dL High 0.2-1.0 [facility] ([place]) Comment on above: Result Comment: Use of this assay is not recommended for patients undergoing treatment with eltrombopag due to the potential for falsely elevated results. Performed By: #### G FR, PHOS, PSA, BMP, VIDH #### [address] [address] #### PTH, HCV1 #### [address] [address] BUN/Creatinine Ratio 15 ratio Normal 7-27 [facility] ([place]) Comment on above: Performed By: #### G FR, PHOS, PSA, BMP, VIDH #### [place] [address] #### PTH, HCV1 #### [address] [address] Calcium [Mass/Vol] 9.3 mg/dL Normal 8.4-10.2 [facility] ([place]) Comment on above: Performed By: #### G FR, PHOS, PSA, BMP, VIDH #### [place] [address] #### PTH, HCV1 #### [address] [address] Chloride [Moles/Vol] 107 mmol/L Normal 98-107 [facility] ([place]) Comment on above: Performed By: #### G FR, PHOS, PSA, BMP, VIDH #### [place] [address] #### PTH, HCV1 #### [address] [address] CO2 [Moles/Vol] 28 mmol/L Normal 23-31 [facility] ([place]) Comment on above: Performed By: #### G FR, PHOS, PSA, BMP, VIDH #### [place] [address] #### PTH, HCV1 #### [address] [address] Creatinine [Mass/Vol] 1.35 mg/dL High 0.70-1.30 [facility] ([place]) Comment on above: Performed By: #### G FR, PHOS, PSA, BMP, VIDH #### [place] [address] #### PTH, HCV1 #### [address] [address] Electrolyte Balance 9.0 mEq/L Normal 4.0-15.0 [facility] ([place]) Comment on above: Performed By: #### G FR, PHOS, PSA, BMP, VIDH #### [address] [address] #### PTH, HCV1 #### [address] [address] Globulin 3.8 G/dL Normal [facility] ([place]) Comment on above: Performed By: #### G FR, PHOS, PSA, BMP, VIDH #### [address] [address] #### PTH, HCV1 #### [address] [address] Glucose [Mass/Vol] 83 mg/dL Normal 83-110 [facility] ([place]) Comment on above: Performed By: #### G FR, PHOS, PSA, BMP, VIDH #### [address] [address] #### PTH, HCV1 #### [address] [address] Potassium [Moles/Vol] 4.2 mmol/L Normal 3.5-5.1 [facility] ([place]) Comment on above: Performed By: #### G FR, PHOS, PSA, BMP, VIDH #### [address] [address] #### PTH, HCV1 #### [address] [address] Sodium [Moles/Vol] 144 mmol/L Normal 136-145 [facility] ([place]) Comment on above: Performed By: #### G FR, PHOS, PSA, BMP, VIDH #### [address] [address] #### PTH, HCV1 #### [address] [address] Total Protein 7.3 G/dL Normal 6.4-8.2 [facility] ([place]) Comment on above: Performed By: #### G FR, PHOS, PSA, BMP, VIDH #### [place] [address] [place], [place] [address] #### PTH, HCV1 #### [address] [address] Urea nitrogen [Mass/Vol] 20 mg/dL High 7-18 [facility] ([place]) Comment on above: Performed By: #### G FR, PHOS, PSA, BMP, VIDH #### [place] [address] [place], [place] [address] #### PTH, HCV1 #### [address] [address] LABORATORYOrdered By: Emelia Corbett on 02-23-2023 Appearance (U) Clear (02/23/23 4:04 PM) Invalid Interpretation Code Clear AO Auto Urine SS Bacteria LM.HPF (Urine sed) [#/Area] Trace /HPF Invalid Interpretation Code AO Auto Urine SS Bilirubin Ql (U) Negative (02/23/23 4:04 PM) Invalid Interpretation Code Negative AO Auto Urine SS Color (U) Dark yellow Invalid Interpretation Code AO Auto Urine SS Glucose Test strip (U) [Mass/Vol] Negative Invalid Interpretation Code Negativemg/ dL AO Auto Urine SS Hemoglobin Auto test strip (U) [Mass/Vol] Negative (02/23/23 4:04 PM) Invalid Interpretation Code Negative AO Auto Urine SS Ketones Ql (U) Negative Invalid Interpretation Code Negativemg/ dL AO Auto Urine SS UA Hyal Cast 0-5 /LPF Invalid Interpretation Code AO Auto Urine SS UA Leuk Est Negative (02/23/23 4:04 PM) Invalid Interpretation Code Negative AO Auto Urine SS UA Mucous 2+ /HPF Invalid Interpretation Code AO Auto Urine SS UA Nitrite Negative (02/23/23 4:04 PM) Invalid Interpretation Code Negative AO Auto Urine SS UA pH 5.5 (02/23/23 4:04 PM) Invalid Interpretation Code 5.0 - 8.0 AO Auto Urine SS UA Protein 100 mg/dL Invalid Interpretation Code Negativemg/ dL AO Auto Urine SS UA RBC 0-5 /HPF Invalid Interpretation Code None Seen/HPF AO Auto Urine SS UA Spec Grav >=1.030 *ABN* (02/23/23 4:04 PM) Invalid Interpretation Code 1.015-1.025 AO Auto Urine SS UA Specimen Type Clean Catch (02/23/23 4:04 PM) Invalid Interpretation Code AO Auto Urine SS UA Squam Epithelial None Seen /HPF Invalid Interpretation Code None Seen/HPF AO Auto Urine SS UA Urobilinogen 0.2 E.U./dL Invalid Interpretation Code 0.2-1.0E.U. /dL AO Auto Urine SS WBC LM.HPF (Urine sed) [#/Area] 0-5 /HPF Invalid Interpretation Code None Seen/HPF AO Auto Urine SS LABORATORYOrdered By: SYSTEM SYSTEM on 02-23-2023 Albumin BCP dye [Mass/Vol] 3.5 G/dL Invalid Interpretation Code 3.4 - 4.8 G/dL AO ADM SS Albumin/Globulin [Mass ratio] 0.9 {ratio} Invalid Interpretation Code 1.1 - 2.5 ratio AO ADM SS ALP [Catalytic activity/Vol] 101 U/L Invalid Interpretation Code 40 - 135 U/L AO ADM SS ALT With P-5'-P [Catalytic activity/Vol] 31 U/L Invalid Interpretation Code 16 - 63 U/L AO ADM SS AST With P-5'-P [Catalytic activity/Vol] 32 U/L Invalid Interpretation Code 10 - 40 U/L AO ADM SS Bilirubin [Mass/Vol] 1.2 mg/dL Invalid Interpretation Code 0.2 - 1.0 mg/dL AO ADM SS Calcium [Mass/Vol] 9.3 mg/dL Invalid Interpretation Code 8.4 - 10.2 mg/dL AO ADM SS Chloride [Moles/Vol] 107 mmol/L Invalid Interpretation Code 98 - 107 mmol/L AO ADM SS CO2 [Moles/Vol] 28 mmol/L Invalid Interpretation Code 23 - 31 mmol/L AO ADM SS Creatinine [Mass/Vol] 1.35 mg/dL Invalid Interpretation Code 0.70 - 1.30 mg/dL AO ADM SS Electrolyte Balance 9.0 mEq/L Invalid Interpretation Code 4.0 - 15.0 mEq/L AO ADM SS GFR/1.73 sq M.predicted among blacks MDRD (S/P/Bld) [Vol rate/Area] 61 ml/min/1.73sqm Invalid Interpretation Code AO Chemistry S GFR/1.73 sq M.predicted among non-blacks MDRD (S/P/Bld) [Vol rate/Area] 50 ml/min/1.73sqm Invalid Interpretation Code AO Chemistry S Globulin 3.8 G/dL Invalid Interpretation Code AO ADM SS Glucose [Mass/Vol] 83 mg/dL Invalid Interpretation Code 83 - 110 mg/dL AO ADM SS Natriuretic peptide.B prohormone N-Terminal [Mass/Vol] 1033 pg/mL Invalid Interpretation Code 0 - 450 pg/mL AO ADM SS Potassium [Moles/Vol] 4.2 mmol/L Invalid Interpretation Code 3.5 - 5.1 mmol/L AO ADM SS Protein [Mass/Vol] 7.3 G/dL Invalid Interpretation Code 6.4 - 8.2 G/dL AO ADM SS Sodium [Moles/Vol] 144 mmol/L Invalid Interpretation Code 136 - 145 mmol/L AO ADM SS Urea nitrogen [Mass/Vol] 20 mg/dL Invalid Interpretation Code 7 - 18 mg/dL AO ADM SS Urea nitrogen/Creatinine [Mass ratio] 15 ratio Invalid Interpretation Code 7 - 27 ratio AO ADM SS LABORATORYOrdered By: Renee Mensah on 02-23-2023 Basophil, Absolute 0.1 103/mcL Invalid Interpretation Code 0.0 - 0.2 10^3/mcL AO Workflow SS Basophils/100 WBC (Bld) 1.0 % Invalid Interpretation Code 0.0 - 2.5 % AO Workflow SS Eosinophil, Absolute 0.2 103/mcL Invalid Interpretation Code 0.0 - 0.4 10^3/mcL AO Workflow SS Eosinophils/100 WBC (Bld) 1.5 % Invalid Interpretation Code 0.0 - 7.0 % AO Workflow SS Erythrocyte distribution width (RBC) [Ratio] 14.1 % Invalid Interpretation Code 11.5 - 14.5 % AO Workflow SS Hematocrit (Bld) [Volume fraction] 50.5 % Invalid Interpretation Code 42.0 - 52.0 % AO Workflow SS Hemoglobin (Bld) [Mass/Vol] 16.8 G/dL Invalid Interpretation Code 14.0 - 18.0 G/dL AO Workflow SS Lymphocyte, Absolute 3.4 103/mcL Invalid Interpretation Code 0.8 - 3.9 10^3/mcL AO Workflow SS Lymphocytes/100 WBC (Bld) 29.7 % Invalid Interpretation Code 10.0 - 50.0 % AO Workflow SS MCH (RBC) [Entitic mass] 30.0 pg Invalid Interpretation Code 27.0 - 31.2 pg AO Workflow SS MCHC 33.3 G/dL Invalid Interpretation Code 31.8 - 35.4 G/dL AO Workflow SS MCV (RBC) [Entitic vol] 89.9 fL Invalid Interpretation Code 80.0 - 94.0 fL AO Workflow SS Monocyte, Absolute 1.2 103/mcL Invalid Interpretation Code 0.2 - 1.0 10^3/mcL AO Workflow SS Monocytes/100 WBC (Bld) 10.5 % Invalid Interpretation Code 1.7 - 13.0 % AO Workflow SS Neutrophil, Absolute 6.6 103/mcL Invalid Interpretation Code 2.9 - 6.2 10^3/mcL AO Workflow SS Neutrophils/100 WBC (Bld) 57.3 % Invalid Interpretation Code 37.0 - 80.0 % AO Workflow SS Platelet mean volume (Bld) [Entitic vol] 7.9 fL Invalid Interpretation Code 7.4 - 10.4 fL AO Workflow SS Platelets (Bld) [#/Vol] 206 103/mcL Invalid Interpretation Code 130 - 400 10^3/mcL AO Workflow SS RBC (Bld) [#/Vol] 5.62 106/mcL Invalid Interpretation Code 4.04 - 6.13 10^6/mcL AO Workflow SS WBC (Bld) [#/Vol] 11.5 103/mcL Invalid Interpretation Code 4.6 - 10.8 10^3/mcL AO Workflow SS PBNPon 02-23-2023 Natriuretic peptide B (Bld) [Mass/Vol] 1033 pg/mL High 0-450 [facility] ([place]) Comment on above: Result Comment: NT-p roBNP results of less than 300 pg/mL effectively rules out acute congestive heart failure with 99% negative predictive value. Performed By: #### G FR, PHOS, PSA, BMP, VIDH #### [address] [address] #### PTH, HCV1 #### [address] [address] UAon 02-23-2023 Color (U) Dark yellow Normal [facility] ([place]) Comment on above: Order Comment: MICRO SCOPY REGARDLESS OF RESULTS Performed By: #### G FR, PHOS, PSA, BMP, VIDH #### [address] [address] #### PTH, HCV1 #### [address] [address] Glucose (U) [Mass/Vol] Negative Normal Negative [facility] ([place]) Comment on above: Order Comment: MICRO SCOPY REGARDLESS OF RESULTS Performed By: #### G FR, PHOS, PSA, BMP, VIDH #### [place] [address] #### PTH, HCV1 #### [place] [address] Ketones Ql (U) Negative Normal Negative [facility] ([place]) Comment on above: Order Comment: MICRO SCOPY REGARDLESS OF RESULTS Performed By: #### G FR, PHOS, PSA, BMP, VIDH #### [place] [address] #### PTH, HCV1 #### [place] [address] UA Appear Clear Normal Clear [facility] ([place]) Comment on above: Order Comment: MICRO SCOPY REGARDLESS OF RESULTS Performed By: #### G FR, PHOS, PSA, BMP, VIDH #### [place] [address] #### PTH, HCV1 #### [place] [address] UA Blood Negative Normal Negative [facility] ([place]) Comment on above: Order Comment: MICRO SCOPY REGARDLESS OF RESULTS Performed By: #### G FR, PHOS, PSA, BMP, VIDH #### [place] [address] #### PTH, HCV1 #### [place] [id number] UA Leuk Est Negative Normal Negative [facility] ([place]) Comment on above: Order Comment: MICRO SCOPY REGARDLESS OF RESULTS Performed By: #### G FR, PHOS, PSA, BMP, VIDH #### [place] [address] #### PTH, HCV1 #### [address] [address] UA Nitrite Negative Normal Negative [facility] ([place]) Comment on above: Order Comment: MICRO SCOPY REGARDLESS OF RESULTS Performed By: #### G FR, PHOS, PSA, BMP, VIDH #### [address] [address] #### PTH, HCV1 #### [place] [address] UA pH 5.5 Normal 5.0 - 8.0 [facility] ([place]) Comment on above: Order Comment: MICRO SCOPY REGARDLESS OF RESULTS Performed By: #### G FR, PHOS, PSA, BMP, VIDH #### [place] [address] #### PTH, HCV1 #### [place] [address] UA Protein 100 mg/dL Abnormal Negative [facility] ([place]) Comment on above: Order Comment: MICRO SCOPY REGARDLESS OF RESULTS Performed By: #### G FR, PHOS, PSA, BMP, VIDH #### [place] [address] #### PTH, HCV1 #### [place] [address] UA Spec Grav >=1.030 Abnormal 1.015-1.025 [facility] ([place]) Comment on above: Order Comment: MICRO SCOPY REGARDLESS OF RESULTS Performed By: #### G FR, PHOS, PSA, BMP, VIDH #### [place] [address] #### PTH, HCV1 #### [place] [address] UA Specimen Type Clean Catch Normal [facility] ([place]) Comment on above: Order Comment: MICRO SCOPY REGARDLESS OF RESULTS Performed By: #### G FR, PHOS, PSA, BMP, VIDH #### [place] [address] #### PTH, HCV1 #### [place] [address] UA Urobilinogen 0.2 E.U./dL Normal 0.2-1.0 [facility] ([place]) Comment on above: Order Comment: MICRO SCOPY REGARDLESS OF RESULTS Performed By: #### G FR, PHOS, PSA, BMP, VIDH #### [address] [address] #### PTH, HCV1 #### [facility] [address] [place] [address] Urobilinogen (U) [Mass/Vol] Negative Normal Negative [facility] ([place]) Comment on above: Order Comment: MICRO SCOPY REGARDLESS OF RESULTS Performed By: #### G FR, PHOS, PSA, BMP, VIDH #### [place] [address] [place], [place] [address] #### PTH, HCV1 #### [facility] [address] [place] [address] Basophil percentageOrdered B y: Dr. Kelley on 01-26-2023 Bilirubin [Mass/Vol] 1.30 mg/dL 0.20-1.00 [facility] Comment on above: For patients on eltr ombopag therapy, use of Dimension [place] TBIL is not recommended. Chloride [Moles/Vol] 107 mmol/L 98-107 [facility] Cholesterol [Mass/Vol] 140 mg/dL <200 [facility] Comment on above: <200 mg/dL Desirable 200-240 mg/dL Borderline >240 mg/dL High Risk Glucose [Mass/Vol] 105 mg/dL 74-[address] [facility] Comment on above: Fasting Glucose resu lt from 100 to 125 mg/dL suggests IMPAIRED HOMEOSTASIS per A.D.A. criteria. Potassium [Moles/Vol] 4.0 mmol/L 3.5-5.1 [facility] Protein [Mass/Vol] 7.8 g/dL 6.4-8.[address] [facility] Sodium [Moles/Vol] 139 mmol/L 136-[address] [facility] Triglyceride [Mass/Vol] 162 mg/dL <199 [facility] Comment on above: The drugs N-Acetylcy steine and Metamizole may falsely depress this assay.Serum Triglycerides Reference Interval Normal <150 mg/dL Borderline high 150 - 199 mg/dL High 200 - 499 mg/dL Very High > or = 500 mg/dL WBC (Bld) [#/Vol] 9.2 10*3/uL 4.4-11.[address] [facility] Blood erythrocytes count (nu mber/volume)Ordered By: Dr. Kelley on 01-26-2023 RBC (Bld) [#/Vol] 5.73 10*6/uL 4.6-6.2 [facility] Blood hemoglobin measurement (mass/volume)Ordered By: Dr. Kelley on 01-26-2023 Hemoglobin (Bld) [Mass/Vol] 17.5 g/dL 13.0-16.5 [facility] Blood platelet mean volumeOr dered By: Dr. Kelley on 01-26-2023 Platelet mean volume (Bld) [Entitic vol] 9.9 fL 6.2-12.0 [facility] Determination of erythrocyte mean corpuscular volume (MCV)Ordered By: Dr. Kelley on 01-26-2023 MCV (RBC) [Entitic vol] 91.3 fL 80-94 [facility] Hematocrit Auto (Bld) [Volum e fraction]Ordered By: Dr. Kelley on 01-26-2023 Hematocrit (Bld) [Volume fraction] 52.3 % 40-54 [facility] Laboratory - Chemistry and C hemistry - challengeOrdered By: Dr. Kelley on 01-26-2023 ALP [Catalytic activity/Vol] 92 U/L 45-117 [facility] ALT [Catalytic activity/Vol] 34 U/L 16-61 [facility] CO2 [Moles/Vol] 27.0 mmol/L 21.0-32.0 [facility] Globulin (S) [Mass/Vol] 4.4 g/dL 2.2-4.2 [facility] Urea nitrogen/Creatinine [Mass ratio] 13.8 mg/mg 10-20 [facility] Laboratory - Hematology and Cell countsOrdered By: Dr. Kelley on 01-26-2023 Erythrocyte distribution width (RBC) [Entitic vol] 44.0 fL 35.1-43.9 [facility] Erythrocyte distribution width (RBC) [Ratio] 13.1 % 11.6-14.6 [facility] MCH (RBC) [Entitic mass] 30.5 pg [facility] [Mass/Vol]Or dered By: Dr. Kelley on 01-26-2023 MCHC (RBC) [Mass/Vol] 33.5 g/dL 32-36 [facility] No Panel InformationOrdered By: Dr. Kelley on 01-26-2023 Estimated GFR (MDRD) Amer 67 mL/min >60 [facility] Comment on above: GFR Calc Estimated GFR (MDRD) Non-Af Amer 56 mL/min >60 [facility] Comment on above: Non- GFR Calc Prostate Specific Antigen Total 6.40 ng/mL 0.0-4.0 [facility] Comment on above: This test was perfor med using the TPSA assay method for the[employer] chemistry system. Values obtained with differentassay methods cannot be used interchangably.When changing PSA assays in the course of monitoring apatient, additional sequential testing should be carriedout to confirm baseline values. Vitamin D 25-Hydroxy 27.9 ng/mL [facility] Comment on above: Vitamin D 25(OH) Sta tus Range Deficiency <20 ng/mL (50nmol/L) Insufficiency 20 - 30 ng/mL (50 - 75 nmol/L) Sufficiency 30 - 100 ng/mL (75 - 250 nmol/L) Toxicity >100 ng/mL (>250 nmol/L) Platelets bldOrdered By: Dr. Kelley on 01-26-2023 Platelets (Bld) [#/Vol] 204 10*3/uL 150-450 [facility] Serum or plasma albumin tony urement (mass/volume)Ordered By: Dr. Kelley on 01-26-2023 Albumin [Mass/Vol] 3.4 g/dL 3.2-5.[address] [facility] Serum or plasma albumin/glob ulin mass ratioOrdered By: Dr. Kelley on 01-26-2023 Albumin/Globulin [Mass ratio] 0.8 {ratio} 0.9-2.4 [facility] Serum or plasma calcium tony urement (mass/volume)Ordered By: Dr. Kelley on 01-26-2023 Calcium [Mass/Vol] 8.9 mg/dL 8.5-10.[address] [facility] Serum or plasma cholesterol in HDL measurement (mass/volume)Ordered By: Dr. Kelley on 01-26-2023 Cholesterol in HDL [Mass/Vol] 48 mg/dL >40 [facility] Comment on above: The drugs N-Acetylcy steine and Metamizole may falsely depress this assay. Reference Range HDL <40 mg/dL Low HDL Cholesterol HDL >or= 60 mg/dL High HDL Cholesterol Serum or plasma cholesterol in VLDL measurement (mass/volume)Ordered By: Dr. Kelley on 01-26-2023 Cholesterol in VLDL [Mass/Vol] 32 mg/dL 5-40 [facility] Serum or plasma creatinine m easurement (mass/volume)Ordered By: Dr. Kelley on 01-26-2023 Creatinine [Mass/Vol] 1.30 mg/dL 0.70-1.30 [facility] Comment on above: The validity of the calculated GFR & GFRAA in patients over 70 years has not been determined. Clinical correlation is essential. Serum or plasma low density lipoprotein (LDL) cholesterol measurement (mass/volume)Ordered By: Dr. Kelley on 01-26-2023 Cholesterol in LDL [Mass/Vol] 60 mg/dL 0-130 [facility] Serum or plasma urea nitroge n measurement (mass/volume)Ordered By: Dr. Kelley on 01-26-2023 Urea nitrogen [Mass/Vol] 18 mg/dL 7-18 [facility] Thin prep Papanicolaou smear with manual screeningOrdered By: Dr. Kelley on 01-26-2023 Thin prep Papanicolaou smear with manual screening 27 U/L 15-37 [facility] Thin prep Papanicolaou smear with manual screening 5 5-15 [facility] Absolute lymphocyte countOrd ered By: Dr. Erickson on 01-14-2023 Lymphocytes Auto (Unsp spec) [#/Vol] 1.74 10*3/uL 0.83-4.51 [facility] Basophil percentageOrdered B y: Dr. Erickson on 01-14-2023 Basophils/100 WBC (Bld) 1.3 % 0-1 [facility] Bilirubin [Mass/Vol] 1.10 mg/dL 0.20-1.00 [facility] Comment on above: For patients on eltr ombopag therapy, use of Dim[place] TBIL is not recommended. Chloride [Moles/Vol] 107 mmol/L 98-107 [facility] Cholesterol [Mass/Vol] 94 mg/dL <200 [facility] Comment on above: <200 mg/dL Desirable 200-240 mg/dL Borderline >240 mg/dL High Risk Eosinophils/100 WBC (Bld) 2.6 % 0-5 [facility] Glucose [Mass/Vol] 98 mg/dL 74-[address] [facility] Neutrophils (Bld) [#/Vol] 4.0 10*3/uL 2.0-7.7 [facility] Neutrophils/100 WBC (Bld) 57.4 % 47-70 [facility] Potassium [Moles/Vol] 3.9 mmol/L 3.5-5.1 [facility] Protein [Mass/Vol] 6.2 g/dL 6.4-8.[address] [facility] Sodium [Moles/Vol] 141 mmol/L 136-[address] [facility] Triglyceride [Mass/Vol] 108 mg/dL <199 [facility] Comment on above: The drugs N-Acetylcy steine and Metamizole may falsely depress this assay.Serum Triglycerides Reference Interval Normal <150 mg/dL Borderline high 150 - 199 mg/dL High 200 - 499 mg/dL Very High > or = 500 mg/dL WBC (Bld) [#/Vol] 6.9 10*3/uL 4.4-11.[address] [facility] Blood erythrocytes count (nu mber/volume)Ordered By: Dr. Erickson on 01-14-2023 RBC (Bld) [#/Vol] 4.95 10*6/uL 4.6-6.2 [facility] Blood hemoglobin measurement (mass/volume)Ordered By: Dr. Erickson on 01-14-2023 Hemoglobin (Bld) [Mass/Vol] 15.0 g/dL 13.0-16.5 [facility] [place] Blood lymphocytes/100 leukoc ytesOrdered By: Dr. Erickson on 01-14-2023 Lymphocytes/100 WBC (Bld) 25.2 % 19-41 [facility] [place] Blood monocytes/100 leukocyt esOrdered By: Dr. Erickson on 01-14-2023 Monocytes/100 WBC (Bld) 13.2 % 0-10 [facility] Blood platelet mean volumeOr dered By: Dr. Erickson on 01-14-2023 Platelet mean volume (Bld) [Entitic vol] 10.3 fL 6.2-12.0 [facility] [place] Determination of erythrocyte mean corpuscular volume (MCV)Ordered By: Dr. Erickson on 01-14-2023 MCV (RBC) [Entitic vol] 92.3 fL 80-94 [facility] Hematocrit Auto (Bld) [Volum e fraction]Ordered By: Dr. Erickson on 01-14-2023 Hematocrit (Bld) [Volume fraction] 45.7 % 40-54 [facility] [place] Laboratory - Chemistry and C hemistry - challengeOrdered By: Dr. Erickson on 01-14-2023 ALP [Catalytic activity/Vol] 66 U/L 45-117 [facility] [place] ALT [Catalytic activity/Vol] 20 U/L 16-61 [facility] [place] CO2 [Moles/Vol] 25.0 mmol/L 21.0-32.0 [facility] [place] Globulin (S) [Mass/Vol] 3.5 g/dL 2.2-4.2 [facility] Urea nitrogen/Creatinine [Mass ratio] 16.7 mg/mg 10-20 [facility] [place] Laboratory - Hematology and Cell countsOrdered By: Dr. Erickson on 01-14-2023 Erythrocyte distribution width (RBC) [Entitic vol] 44.6 fL 35.1-43.9 [facility] [place] Erythrocyte distribution width (RBC) [Ratio] 13.2 % 11.6-14.6 [facility] [place] Immature granulocytes/100 WBC (Bld) 0.300 % 0.0-0.9 [facility] [place] Comment on above: IG% - Immature Granu locytes (promyelocytes, myelocytes and metamyelocytes) > 1% indicates that a LEFT SHIFT is Present. MCH (RBC) [Entitic mass] 30.3 pg 27.0-32.0 [facility] [place] Nucleated RBC/100 WBC (Bld) [Ratio] 0 % 0-5 [facility] [place] MCHC Auto (RBC) [Mass/Vol]Or dered By: Dr. Erickson on 01-14-2023 MCHC (RBC) [Mass/Vol] 32.8 g/dL 32-36 [facility] No Panel InformationOrdered By: Dr. Erickson on 01-14-2023 Estimated Creatinine Clearance Calc 46.75 ml/min [facility] [place] Estimated GFR (MDRD) Amer 83 mL/min >60 [facility] [place] Comment on above: GFR Calc Estimated GFR (MDRD) Non-Af Amer 69 mL/min >60 [facility] [place] Comment on above: Non- GFR Calc Thyroid Stimulating Hormone (TSH) 0.68 uIU/mL 0.358-3.74 [facility] [place] Platelets bldOrdered By: Dr. Erickson on 01-14-2023 Platelets (Bld) [#/Vol] 125 10*3/uL 150-450 [facility] [place] Serum or plasma albumin tony urement (mass/volume)Ordered By: Dr. Erickson on 01-14-2023 Albumin [Mass/Vol] 2.7 g/dL 3.2-5.[address] [facility] Serum or plasma albumin/glob ulin mass ratioOrdered By: Dr. Erickson on 01-14-2023 Albumin/Globulin [Mass ratio] 0.8 {ratio} 0.9-2.4 [facility] [place] Serum or plasma calcium tony urement (mass/volume)Ordered By: Dr. Erickson on 01-14-2023 Calcium [Mass/Vol] 8.4 mg/dL 8.5-10.[address] [facility] Serum or plasma cholesterol in HDL measurement (mass/volume)Ordered By: Dr. Erickson on 01-14-2023 Cholesterol in HDL [Mass/Vol] 34 mg/dL >40 [facility] [place] Comment on above: The drugs N-Acetylcy steine and Metamizole may falsely depress this assay. Reference Range HDL <40 mg/dL Low HDL Cholesterol HDL >or= 60 mg/dL High HDL Cholesterol Serum or plasma cholesterol in VLDL measurement (mass/volume)Ordered By: Dr. Erickson on 01-14-2023 Cholesterol in VLDL [Mass/Vol] 22 mg/dL 5-40 [facility] [place] Serum or plasma creatinine m easurement (mass/volume)Ordered By: Dr. Erickson on 01-14-2023 Creatinine [Mass/Vol] 1.08 mg/dL 0.70-1.30 [facility] Comment on above: The validity of the calculated GFR & GFRAA in patients over 70 years has not been determined. Clinical correlation is essential. Serum or plasma low density lipoprotein (LDL) cholesterol measurement (mass/volume)Ordered By: Dr. Erickson on 01-14-2023 Cholesterol in LDL [Mass/Vol] 38 mg/dL 0-130 [facility] [place] Serum or plasma urea nitroge n measurement (mass/volume)Ordered By: Dr. Erickson on 01-14-2023 Urea nitrogen [Mass/Vol] 18 mg/dL 7-18 [facility] [place] Thin prep Papanicolaou smear with manual screeningOrdered By: Dr. Erickson on 01-14-2023 Thin prep Papanicolaou smear with manual screening 21 U/L 15-37 [facility] [place] Thin prep Papanicolaou smear with manual screening 9 5-15 [facility] [place] Basophil percentageOrdered B y: Dr. Walton on 01-13-2023 Basophil percentage 0 SEEN /hpf 0-5 [facility] Bilirubin Test strip Ql (U)O rdered By: Dr. Walton on 01-13-2023 Bilirubin Ql (U) Negative Negative [facility] [place] Direct bilirubinOrdered By: Dr. Erickson on 01-13-2023 Bilirubin.direct [Mass/Vol] 0.39 mg/dL 0.00-0.30 [facility] [place] INR in Blood by Coagulation assayOrdered By: Dr. Erickson on 01-13-2023 INR Coag (Bld) [Relative time] 2.1 {INR} [facility] [place] Ketones Test strip Ql (U)Ord ered By: Dr. Walton on 01-13-2023 Ketones Ql (U) Negative Negative [facility] [place] Laboratory - Chemistry and C hemistry - challengeOrdered By: Dr. Erickson on 01-13-2023 CK [Catalytic activity/Vol] 48 U/L 39-308 [facility] [place] Laboratory - CoagulationOrde red By: Dr. Erickson on 01-13-2023 PT Coag (PPP) [Time] 22.9 s 11.7-14.9 [facility] Mucus LM Ql (Urine sed)Order ed By: Dr. Walton on 01-13-2023 Mucus Ql (Urine sed) RARE /hpf [facility] Nitrite Test strip Ql (U)Ord ered By: Dr. Walton on 01-13-2023 Nitrite Ql (U) Negative Negative [facility] [place] Protein Test strip Ql (U)Ord ered By: Dr. Walton on 01-13-2023 Protein Ql (U) 30 mg/dl Negative [facility] [place] Squamous epithelial cells de tection in urine sediment by light microscopyOrdered By: Dr. Walton on 01-13-2023 Epithelial cells.squamous LM Ql (Urine sed) 0-5 SEEN /hpf 0-5 [facility] [place] Urine blood detectionOrdered By: Dr. Walton on 01-13-2023 RBC Ql (U) 25 /ul Negative [facility] [place] RBC Ql (U) 0 SEEN /hpf 0-5 [facility] [place] Urine clarityOrdered By: Dr. Walton on 01-13-2023 Clarity (U) Clear Clear [facility] [place] Urine color determinationOrd ered By: Dr. Walton on 01-13-2023 Color (U) Yellow Yellow [facility] [place] Urine glucose detectionOrder ed By: Dr. Walton on 01-13-2023 Glucose Ql (U) Normal mg/dl Normal [facility] [place] Urine leukocyte esterase det ection by dipstickOrdered By: Dr. Walton on 01-13-2023 Leukocyte esterase Test strip Ql (U) Negative Negative [facility] [place] Urine pHOrdered By: Dr. Sharda cheatham on 01-13-2023 pH (U) 6.0 [pH] 5.0 - 8.0 [facility] [place] Urine sediment bacteria coun t by microscopy (number/high power field)Ordered By: Dr. Walton on 01-13-2023 Bacteria LM.HPF (Urine sed) [#/Area] RARE /hpf None Seen [facility] [place] Urine specific gravity measu rementOrdered By: Dr. Walton on 01-13-2023 Specific gravity (U) [Rel density] 1.015 1.002-1.030 [facility] [place] Urobilinogen Auto test strip Ql (U)Ordered By: Dr. 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 Discussed BE, LGD, HGD with family and management. Options discussed: 1. EMR -- may be able to resect all, would also give definitve diagnosis and make sure there is no cancer, especially if there is a slight nodular patch (I cannot tell by looking at EGD pictures); disadvantage would be stopping anticoagulation and the fact that he had CVA in afew days off anticoagulation. 2. Do EGD with limited biopsy and then do cryo. Advantage would be keepign anticoagulation with a slight risk of bleeding. He would need to return for surveillance 3. Also has option of continuing just observation but that has risk of patient developing cancer. Spent 25 minutes. They will discuss and get back to me. Chief Complaint A telephone visit (audio only) between the patient (at the originating site) and the provider (at the distant site) was utilized to provide this telehealth service. BE with dysplasia History of Present [age]ijui12 year old who is on Xarelto for a. fib. [facility] in [facility]. 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 He had a followup EGD off Xarelto for a couple of days. It showed atypia, Ki-67, p53 positive . On endoscopy there seems to be a small area of LA Grade A esophagitis. Patient denies dysphagia, wt loss, GERD symptoms. He does not smoke or have family history. Signatures Electronically signed by : Silvio Landry MD; Feb 03 2022 4:30PM EST (Author) Normal [employer] LABORATORYOrdered By: Pedro Mon on 09-11-2021 Basophil, Absolute 0.10 103/mcL Invalid Interpretation Code 0.00 - 0.19 10^3/mcL AO Auto Heme SS Basophils/100 WBC (Bld) 0.9 % Invalid Interpretation Code 0.0 - 2.5 % AO Auto Heme SS Calcium [Mass/Vol] 9.0 mg/dL Invalid Interpretation Code 8.4 - 10.2 mg/dL AO ADM SS Chloride [Moles/Vol] 104 mmol/L Invalid Interpretation Code 98 - 107 mmol/L AO ADM SS CO2 [Moles/Vol] 31 mmol/L Invalid Interpretation Code 23 - 31 mmol/L AO ADM SS Creatinine [Mass/Vol] 1.18 mg/dL Invalid Interpretation Code 0.70 - 1.30 mg/dL AO ADM SS Electrolyte Balance 7.0 mEq/L Invalid Interpretation Code AO ADM SS Eosinophil, Absolute 0.30 103/mcL Invalid Interpretation Code 0.00 - 0.40 10^3/mcL AO Auto Heme SS Eosinophils/100 WBC (Bld) 2.8 % Invalid Interpretation Code 0.0 - 7.0 % AO Auto Heme SS Erythrocyte distribution width (RBC) [Ratio] 13.9 % Invalid Interpretation Code 11.5 - 14.5 % AO Auto Heme SS Glucose [Mass/Vol] 88 mg/dL Invalid Interpretation Code 83 - 110 mg/dL AO ADM SS Hematocrit (Bld) [Volume fraction] 45.5 % Invalid Interpretation Code 42.0 - 52.0 % AO Auto Heme SS Hemoglobin (Bld) [Mass/Vol] 15.8 G/dL Invalid Interpretation Code 14.0 - 18.0 G/dL AO Auto Heme SS Lymphocyte, Absolute 2.10 103/mcL Invalid Interpretation Code 0.77 - 3.85 10^3/mcL AO Auto Heme SS Lymphocytes/100 WBC (Bld) 22.8 % Invalid Interpretation Code 10.0 - 50.0 % AO Auto Heme SS MCH (RBC) [Entitic mass] 30.7 pg Invalid Interpretation Code 27.0 - 31.2 pg AO Auto Heme SS MCHC (RBC) [Mass/Vol] 34.6 G/dL Invalid Interpretation Code 31.8 - 35.4 G/dL AO Auto Heme SS MCV (RBC) [Entitic vol] 88.6 fL Invalid Interpretation Code 80.0 - 94.0 fL AO Auto Heme SS Monocyte, Absolute 1.00 103/mcL Invalid Interpretation Code 0.15 - 1.00 10^3/mcL AO Auto Heme SS Monocytes/100 WBC (Bld) 11.0 % Invalid Interpretation Code 1.7 - 13.0 % AO Auto Heme SS Neutrophil, Absolute 5.80 103/mcL Invalid Interpretation Code 2.85 - 6.16 10^3/mcL AO Auto Heme SS Neutrophils/100 WBC (Bld) 62.5 % Invalid Interpretation Code 37.0 - 80.0 % AO Auto Heme SS Platelet mean volume (Bld) [Entitic vol] 8.1 fL Invalid Interpretation Code 7.4 - 10.4 fL AO Auto Heme SS Platelets (Bld) [#/Vol] 178 103/mcL Invalid Interpretation Code 130 - 400 10^3/mcL AO Auto Heme SS Potassium [Moles/Vol] 4.5 mmol/L Invalid Interpretation Code 3.5 - 5.1 mmol/L AO ADM SS RBC (Bld) [#/Vol] 5.14 106/mcL Invalid Interpretation Code 4.04 - 6.13 10^6/mcL AO Auto Heme SS Sodium [Moles/Vol] 142 mmol/L Invalid Interpretation Code 136 - 145 mmol/L AO ADM SS Urea nitrogen [Mass/Vol] 18 mg/dL Invalid Interpretation Code 7 - 18 mg/dL AO ADM SS Urea nitrogen/Creatinine [Mass ratio] 15 ratio Invalid Interpretation Code 7 - 27 ratio AO ADM SS WBC (Bld) [#/Vol] 9.20 103/mcL Invalid Interpretation Code 4.60 - 10.80 10^3/mcL AO Auto Heme SS LABORATORYOrdered By: SYSTEM SYSTEM on 09-11-2021 GFR 71 ml/min/1.73sqm Invalid Interpretation Code AO Chemistry S GFR Non- 59 ml/min/1.73sqm Inval id Interpretation Code AO Chemistry S LABORATORYOrdered By: Yehuda Amaya on 08-12-2021 aPTT Coag (PPP) [Time] 63.6 s Invalid Interpretation Code 25.0 - 35.0 seconds AH Auto Coag SS Heparin dose (APTT) Heparin IV (08/12/21 10:24 AM) Invalid Interpretation Code AH Auto Coag SS LABORATORYOrdered By: Ree Soares on 08-12-2021 aPTT Coag (PPP) [Time] 74.2 s Invalid Interpretation Code 25.0 - 35.0 seconds AH Auto Coag SS Heparin dose (APTT) Heparin IV (08/12/21 3:43 AM) Invalid Interpretation Code AH Auto Coag SS INR Coag (PPP) [Relative time] 1.1 {INR} Invalid Interpretation Code AH Auto Coag SS PT Coag (PPP) [Time] 13.1 s Invalid Interpretation Code 9.0 - 14.8 seconds AH Auto Coag SS LABORATORYOrdered By: [employer] SYSTEM on 08-12-2021 Base excess Calc (BldMV) [Moles/Vol] 3.0 mEq/L Invalid Interpretation Code 4.0 - 15.0 mEq/L AH ADM SS Basophils (Bld) [#/Vol] 0.10 103/mcL Invalid Interpretation Code 0.00 - 0.27 10^3/mcL AH Remisol SS Basophils/100 WBC (Bld) 0.5 % Invalid Interpretation Code 0.0 - 2.5 % AH Remisol SS Calcium [Mass/Vol] 8.6 mg/dL Invalid Interpretation Code 8.4 - 10.1 mg/dL AH ADM SS Chloride [Moles/Vol] 106 mmol/L Invalid Interpretation Code 98 - 110 mEq/L AH ADM SS CO2 [Moles/Vol] 28 mmol/L Invalid Interpretation Code 22 - 32 mEq/L AH ADM SS Creatinine [Mass/Vol] 0.85 mg/dL Invalid Interpretation Code 0.60 - 1.40 mg/dL AH ADM SS Eosinophils (Bld) [#/Vol] 0.10 103/mcL Invalid Interpretation Code 0.00 - 0.65 10^3/mcL AH Remisol SS Eosinophils/100 WBC (Bld) 1.0 % Invalid Interpretation Code 0.0 - 6.0 % AH Remisol SS Erythrocyte distribution width (RBC) [Ratio] 13.8 % Invalid Interpretation Code 11.5 - 15.5 % AH Remisol SS GFR/1.73 sq M.predicted among blacks MDRD (S/P/Bld) [Vol rate/Area] ml/min/1.73sqm Invalid Interpretation Code AH ADM SS GFR/1.73 sq M.predicted among non-blacks MDRD (S/P/Bld) [Vol rate/Area] ml/min/1.73sqm Invalid Interpretation Code AH ADM SS Glucose [Mass/Vol] 126 mg/dL Invalid Interpretation Code 82 - 115 mg/dL AH ADM SS Hematocrit (Bld) [Volume fraction] 45.4 % Invalid Interpretation Code 40.0 - 52.0 % AH Remisol SS Hemoglobin (Bld) [Mass/Vol] 15.5 G/dL Invalid Interpretation Code 13.0 - 17.5 G/dL AH Remisol SS Lymphocytes (Bld) [#/Vol] 1.40 103/mcL Invalid Interpretation Code 0.90 - 4.32 10^3/mcL AH Remisol SS Lymphocytes/100 WBC (Bld) 12.4 % Invalid Interpretation Code 20.0 - 40.0 % AH Remisol SS MCH (RBC) [Entitic mass] 30.6 pg Invalid Interpretation Code 27.0 - 33.0 pg AH Remisol SS MCHC (RBC) [Mass/Vol] 34.1 G/dL Invalid Interpretation Code 32.0 - 36.0 G/dL AH Remisol SS MCV (RBC) [Entitic vol] 90.0 fL Invalid Interpretation Code 81.0 - 100.0 fL AH Remisol SS Monocytes (Bld) [#/Vol] 1.30 103/mcL Invalid Interpretation Code 0.09 - 1.40 10^3/mcL AH Remisol SS Monocytes/100 WBC (Bld) 11.2 % Invalid Interpretation Code 2.0 - 13.0 % AH Remisol SS Neutrophils (Bld) [#/Vol] 8.60 103/mcL Invalid Interpretation Code 2.25 - 8.10 10^3/mcL AH Remisol SS Neutrophils/100 WBC (Bld) 74.9 % Invalid Interpretation Code 50.0 - 75.0 % AH Remisol SS Platelet mean volume (Bld) [Entitic vol] 8.4 fL Invalid Interpretation Code 6.4 - 10.5 fL AH Remisol SS Platelets (Bld) [#/Vol] 153 103/mcL Invalid Interpretation Code 150 - 450 10^3/mcL AH Remisol SS Potassium [Moles/Vol] 3.8 mmol/L Invalid Interpretation Code 3.5 - 5.0 mEq/L AH ADM SS RBC (Bld) [#/Vol] 5.05 106/mcL Invalid Interpretation Code 4.50 - 6.00 10^6/mcL AH Remisol SS Sodium [Moles/Vol] 137 mmol/L Invalid Interpretation Code 136 - 145 mEq/L AH ADM SS Urea nitrogen [Mass/Vol] 16.0 mg/dL Invalid Interpretation Code 8.0 - 22.0 mg/dL AH ADM SS Urea nitrogen/Creatinine [Mass ratio] 18.8 ratio Invalid Interpretation Code 10.0 - 22.0 ratio AH ADM SS WBC (Bld) [#/Vol] 11.50 103/mcL Invalid Interpretation Code 4.50 - 10.80 10^3/mcL AH Remisol SS LABORATORYOrdered By: Tramaine Collier on 08-11-2021 aPTT Coag (PPP) [Time] 32.6 s Invalid Interpretation Code 25.0 - 35.0 seconds AH Auto Coag SS Heparin dose (APTT) None Invalid Interpretation Code AH Auto Coag SS INR Coag (PPP) [Relative time] 1.1 {INR} Invalid Interpretation Code AH Auto Coag SS PT Coag (PPP) [Time] 12.6 s Invalid Interpretation Code 9.0 - 14.8 seconds AH Auto Coag SS LABORATORYOrdered By: SYSTEM SYSTEM on 08-11-2021 Basophils (Bld) [#/Vol] 0.10 103/mcL Invalid Interpretation Code 0.00 - 0.27 10^3/mcL AH Remisol SS Basophils/100 WBC (Bld) 0.7 % Invalid Interpretation Code 0.0 - 2.5 % AH Remisol SS Eosinophils (Bld) [#/Vol] 0.10 103/mcL Invalid Interpretation Code 0.00 - 0.65 10^3/mcL AH Remisol SS Eosinophils/100 WBC (Bld) 1.2 % Invalid Interpretation Code 0.0 - 6.0 % AH Remisol SS Erythrocyte distribution width (RBC) [Ratio] 13.6 % Invalid Interpretation Code 11.5 - 15.5 % AH Remisol SS Hematocrit (Bld) [Volume fraction] 47.1 % Invalid Interpretation Code 40.0 - 52.0 % AH Remisol SS Hemoglobin (Bld) [Mass/Vol] 15.9 G/dL Invalid Interpretation Code 13.0 - 17.5 G/dL AH Remisol SS Lymphocytes (Bld) [#/Vol] 1.50 103/mcL Invalid Interpretation Code 0.90 - 4.32 10^3/mcL AH Remisol SS Lymphocytes/100 WBC (Bld) 14.1 % Invalid Interpretation Code 20.0 - 40.0 % AH Remisol SS MCH (RBC) [Entitic mass] 31.2 pg Invalid Interpretation Code 27.0 - 33.0 pg AH Remisol SS MCHC (RBC) [Mass/Vol] 33.8 G/dL Invalid Interpretation Code 32.0 - 36.0 G/dL AH Remisol SS MCV (RBC) [Entitic vol] 92.2 fL Invalid Interpretation Code 81.0 - 100.0 fL AH Remisol SS Monocytes (Bld) [#/Vol] 0.60 103/mcL Invalid Interpretation Code 0.09 - 1.40 10^3/mcL AH Remisol SS Monocytes/100 WBC (Bld) 5.3 % Invalid Interpretation Code 2.0 - 13.0 % AH Remisol SS Neutrophils (Bld) [#/Vol] 8.60 103/mcL Invalid Interpretation Code 2.25 - 8.10 10^3/mcL AH Remisol SS Neutrophils/100 WBC (Bld) 78.7 % Invalid Interpretation Code 50.0 - 75.0 % AH Remisol SS Platelet mean volume (Bld) [Entitic vol] 8.8 fL Invalid Interpretation Code 6.4 - 10.5 fL AH Remisol SS Platelets (Bld) [#/Vol] 144 103/mcL Invalid Interpretation Code 150 - 450 10^3/mcL AH Remisol SS RBC (Bld) [#/Vol] 5.11 106/mcL Invalid Interpretation Code 4.50 - 6.00 10^6/mcL AH Remisol SS WBC (Bld) [#/Vol] 10.90 103/mcL Invalid Interpretation Code 4.50 - 10.80 10^3/mcL AH Remisol SS Base excess Calc (BldMV) [Moles/Vol] 6.0 mEq/L Invalid Interpretation Code 4.0 - 15.0 mEq/L AH ADM SS Basophils (Bld) [#/Vol] 0.10 103/mcL Invalid Interpretation Code 0.00 - 0.27 10^3/mcL AH Remisol SS Basophils/100 WBC (Bld) 0.6 % Invalid Interpretation Code 0.0 - 2.5 % AH Remisol SS Calcium [Mass/Vol] 8.2 mg/dL Invalid Interpretation Code 8.4 - 10.1 mg/dL AH ADM SS Chloride [Moles/Vol] 110 mmol/L Invalid Interpretation Code 98 - 110 mEq/L AH ADM SS CO2 [Moles/Vol] 20 mmol/L Invalid Interpretation Code 22 - 32 mEq/L AH ADM SS Creatinine [Mass/Vol] 0.92 mg/dL Invalid Interpretation Code 0.60 - 1.40 mg/dL AH ADM SS Eosinophils (Bld) [#/Vol] 0.30 103/mcL Invalid Interpretation Code 0.00 - 0.65 10^3/mcL AH Remisol SS Eosinophils/100 WBC (Bld) 2.6 % Invalid Interpretation Code 0.0 - 6.0 % AH Remisol SS Erythrocyte distribution width (RBC) [Ratio] 14.0 % Invalid Interpretation Code 11.5 - 15.5 % AH Remisol SS GFR/1.73 sq M.predicted among blacks MDRD (S/P/Bld) [Vol rate/Area] ml/min/1.73sqm Invalid Interpretation Code AH ADM SS GFR/1.73 sq M.predicted among non-blacks MDRD (S/P/Bld) [Vol rate/Area] ml/min/1.73sqm Invalid Interpretation Code AH ADM SS Glucose [Mass/Vol] 99 mg/dL Invalid Interpretation Code 82 - 115 mg/dL AH ADM SS Hematocrit (Bld) [Volume fraction] 45.0 % Invalid Interpretation Code 40.0 - 52.0 % AH Remisol SS Hemoglobin (Bld) [Mass/Vol] 15.1 G/dL Invalid Interpretation Code 13.0 - 17.5 G/dL AH Remisol SS Lymphocytes (Bld) [#/Vol] 1.90 103/mcL Invalid Interpretation Code 0.90 - 4.32 10^3/mcL AH Remisol SS Lymphocytes/100 WBC (Bld) 17.1 % Invalid Interpretation Code 20.0 - 40.0 % AH Remisol SS MCH (RBC) [Entitic mass] 30.4 pg Invalid Interpretation Code 27.0 - 33.0 pg AH Remisol SS MCHC (RBC) [Mass/Vol] 33.6 G/dL Invalid Interpretation Code 32.0 - 36.0 G/dL AH Remisol SS MCV (RBC) [Entitic vol] 90.7 fL Invalid Interpretation Code 81.0 - 100.0 fL AH Remisol SS Monocytes (Bld) [#/Vol] 1.00 103/mcL Invalid Interpretation Code 0.09 - 1.40 10^3/mcL AH Remisol SS Monocytes/100 WBC (Bld) 8.5 % Invalid Interpretation Code 2.0 - 13.0 % AH Remisol SS Neutrophils (Bld) [#/Vol] 8.00 103/mcL Invalid Interpretation Code 2.25 - 8.10 10^3/mcL AH Remisol SS Neutrophils/100 WBC (Bld) 71.2 % Invalid Interpretation Code 50.0 - 75.0 % AH Remisol SS Platelet mean volume (Bld) [Entitic vol] 8.1 fL Invalid Interpretation Code 6.4 - 10.5 fL AH Remisol SS Platelets (Bld) [#/Vol] 160 103/mcL Invalid Interpretation Code 150 - 450 10^3/mcL AH Remisol SS Potassium [Moles/Vol] 4.1 mmol/L Invalid Interpretation Code 3.5 - 5.0 mEq/L AH ADM SS RBC (Bld) [#/Vol] 4.97 106/mcL Invalid Interpretation Code 4.50 - 6.00 10^6/mcL AH Remisol SS Sodium [Moles/Vol] 136 mmol/L Invalid Interpretation Code 136 - 145 mEq/L AH ADM SS Urea nitrogen [Mass/Vol] 16.0 mg/dL Invalid Interpretation Code 8.0 - 22.0 mg/dL AH ADM SS Urea nitrogen/Creatinine [Mass ratio] 17.4 ratio Invalid Interpretation Code 10.0 - 22.0 ratio AH ADM SS WBC (Bld) [#/Vol] 11.20 103/mcL Invalid Interpretation Code 4.50 - 10.80 10^3/mcL AH Remisol SS LABORATORYOrdered By: Tay Castro on 08-11-2021 ABO and Rh group Nom (Bld) Blood group A Rh(D) positive Invalid Interpretation Code AH BB Auto SS Blood group antibody screen Ql NEG (08/11/21 8:43 AM) Invalid Interpretation Code AH BB Auto SS LABORATORYOrdered By: Cm Bennett on 08-11-2021 Fibrinogen Coag (PPP) [Mass/Vol] 503 mg/dL Invalid Interpretation Code 250 - 550 mg/dL AH Auto Coag SS INR Coag (PPP) [Relative time] 1.1 {INR} Invalid Interpretation Code AH Auto Coag SS PT Coag (PPP) [Time] 12.6 s Invalid Interpretation Code 9.0 - 14.8 seconds AH Auto Coag SS LABORATORYOrdered By: Veronica Iniguez on 08-05-2021 ABO and Rh group Nom (Bld) Blood group A Rh(D) positive Invalid Interpretation Code AH BB Auto SS Blood group antibody screen Ql NEG (08/05/21 3:51 PM) Invalid Interpretation Code AH BB Auto SS CNOVon 07-11-2021 CNOV Office Visit ([facility]WSTR ) SHREE MARCUM ([id number]) 1935 M Date Time Provider Department 07/11/21 2:45 PM VERONICA ENAMORADO PANKAJTR During your visit today, we recorded the following information about you: Temperature Pulse Respiration Blood pressure 97.5 degrees 76/minute 18/minute 124/78 Weight 67.6 kg Veronica EnamoradoHANS 07/11/2021 3:38 PM Signed Visit Date: July 11, 2021 Patient Name: Mr.Carrol Marcum Date of : 1935 MRN/E #: [id number] Chief Complaint Patient presents with: Pain: teeth pulled am, continuous bleeding History of present illness Shree Marcum is a 86 year old male. [...] SURGICAL HISTORY Procedure Laterality Date - INSERT CATH,ART,PERCUT,MAMTA ERM 03/29/06 RIGHT MERYL - THROMBOENDARTECTMY NECK,NECK INCIS [...] -follow up with PCP within 1 week Veronica Enamorado APRN.MEL Discussed above plan with patient. Pt agreeable with above plan. Referring Provider: SELF [[id number]] Allergies As of Date: 07/11/2021 (No Known Allergies) Date Reviewed: 07/11/2021 Reviewed by: Jeannette Briggs MA - Fully Assessed Reason for Visit: Pain [78] Cmt: teeth pulled am, continuous bleeding Primary Visit Diagnosis:Bleeding in mouth [K13.79] Prescriptions as of 07/11/2021 - rivaroxaban (XARELTO) 20 mg tablet Take 20 mg by mouth daily with dinner. - metoprolol tartrate, short acting, (LOPRESSOR) 25 mg tablet Take 25 mg by mouth twice daily. - simvastatin (ZOCOR) 40 mg tablet Take 40 mg by mouth daily at bedtime. - amLODIPine-benazepril (LOTREL) 5-10 mg per capsule Take 1 capsule by mouth once daily. - alendronate (FOSAMAX) 35 mg tablet Take 35 mg by mouth one time a week. 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] 03/22/2006 Postural lightheadedness [R42] 06/08/2020 Permanent atrial fibrillation (HCC) [I48.21] 06/08/2020 At risk for stroke [Z91.89] 06/08/2020 Current use of group home anticoagulation [Z79.0*06/08/2020 Nonrheumatic aortic valve stenosis [I35.0] 06/08/2020 Wide-complex tachycardia (HCC) [I47.2] 06/08/2020 Encounter Status:Closed by VERONICA ENAMORADO on 07/11/21 [facility] Carmencita 08-13-2020 CNPN Telephone (AKPRAD) SHREE MARCUM ([id number]) 1935 M Date Time Provider Department 08/13/20 SAM VELAZCO (MIRTA, EDMUND) CHANELL During your visit today, we recorded the following information about you: Sam Velazco APRN.EDMUND ROMERO 08/13/2020 4:59 PM Signed I spoke to patient at this time [...] saw me in the office in May. Sam Velazco APRN.BACK TENDER [employer]ARD Allergies As of Date: 08/13/2020 (No Known Allergies) Date Reviewed: 06/09/2020 Reviewed by: Sam (Mirta Romero) EDMUND Velazco - Fully Assessed Reason for Visit: Results [95] Prescriptions as of 08/13/2020 Sig: RIVAROXABAN 20 MG TABLET Take 20 mg by mouth daily wit* METOPROLOL TARTRATE 25 MG TAB* Take 25 mg by mouth twice satish* SIMVASTATIN 40 MG TABLET Take 40 mg by mouth daily at * AMLODIPINE 5 MG-BENAZEPRIL 10* Take 1 capsule by mouth once * ALENDRONATE 35 MG TABLET Take 35 mg by mouth one time * Problem List As Of Date 08/13/2020 Noted Resolved 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- Event Monitor SHREE MARCUM : 1935 AGE: 85 SEX: M ACCTNUM: [id number] HOSP SVC: LOCATION: ATTENDING PHYSICIAN: DATE OF STUDY: 08/04/2020 STUDY NAME: [employer] event monitor report INDICATION: Lightheadedness and atrial fibrillation. REPORT: The event monitor was recorded from 07/04/2020 to 08/02/2020. It shows persistent atrial fibrillation with an average rate of 90 beats per minute. The rate varied between 60 beats per minute to 160 beats per minute. The patient had a few premature ventricular contractions during these monitoring. There was no sustained ventricular arrhythmia. There was no significant bradyarrhythmia or significant pauses noted. CONCLUSION: The patient has persistent atrial fibrillation noted for 1 month with a few premature ventricular contractions. There was no significant pauses noted. Atif Barger M.D. Cardiology QS:[id number] /[id number] [facility] Telephone (AGCARDPOB ) SHREE MARCUM ([id number]) 1935 M Date Time Provider Department 07/08/20 SAM VELAZCO (TRIM STENCIL MAKER, [facility]) SHANITA During your visit today, we recorded the following information about you: Gina Wallace LPN 07/08/2020 8:32 AM Signed ----- Message from Sam (Library Media Specialist [facility]) EDMUND Velazco sent at 07/06/2020 9:27 AM [...] see if that shows anything significant. Thanks. Sam Velazco APRN.BACK TENDER [employer] Gina Wallace LPN 07/08/2020 8:34 AM Signed I called and left a message for to call [facility] for test results. TUNDE Carrington Lpn 07/08/2020 8:43 AM Signed Patient returned phone call. Results and recommendations given per Sam Velazco CNP instructions. Patient verbalized understanding. Jen Ruth) Eric Allergies As of Date: 07/08/2020 (No Known Allergies) Date Reviewed: 06/09/2020 Reviewed by: Sam (Library Media Specialist [facility]) EDMUND Velazco - Fully Assessed Reason for Visit: Results [95] Prescriptions as of 07/08/2020 Sig: RIVAROXABAN 20 MG TABLET Take 20 mg by mouth daily wit* METOPROLOL TARTRATE 25 MG TAB* Take 25 mg by mouth twice satish* SIMVASTATIN 40 MG TABLET Take 40 mg by mouth daily at * AMLODIPINE 5 MG-BENAZEPRIL 10* Take 1 capsule by mouth once * ALENDRONATE 35 MG TABLET Take 35 mg by mouth one time * Problem List As Of Date 07/08/2020 Noted Resolved 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] 03/22/2006 Postural lightheadedness [R42] 06/08/2020 Permanent atrial fibrillation (HCC) [I48.21] 06/08/2020 At risk for stroke [Z91.89] 06/08/2020 Current use of group home anticoagulation [Z79.0*06/08/2020 Nonrheumatic aortic valve stenosis [I35.0] 06/08/2020 Wide-complex tachycardia (HCC) [I47.2] 06/08/2020 Encounter Status:Closed by JEN REYES on 07/08/20 [facility] Otheron 07-04-2020 LV Ejection Fraction 63 % [facility] CNOVon 06-09-2020 CNOV Office Visit (AGCARDPOB) SHREE MARCUM ([id number]) 1935 M Date Time Provider Department 06/09/20 2:00 PM SAM VELAZCO (TRIM STENCIL MAKER, [employer]) AGCARDPOB During your visit today, we recorded the following information about you: Pulse Respiration Blood pressure Weight 84/minute 16/minute 130/62 69.9 kg Height 1.702 m Oriana Jordan MA, MA 06/09/2020 2:02 PM Signed Patient has no cardiac complaints today. Sam Velazco APRN.BACK TENDER INSULATION BOARD, [employer] 06/09/2020 6:03 PM Signed PRIMARY CARE PHYSICIAN: Jono Vásquez DO [address] [place] [id number] Patient Care Team: Jono Vásquez as PCP - General (Family Practice) CHIEF COMPLAINT: Patient presents with: Follow Up HISTORY OF PRESENT ILLNESS: Mr. Marcum is a 85 year old male who presents today for an Electrophysiology follow-up visit. Patient is known to Dr. Wren, last seen in the office 10/29/19 for initial visit. History copied forward from Dr. Wren note 10/12/19, edited as needed: Mr. Marcum is a 84 year old male who presents today for evaluation of syncope. He denies having had syncope or near syncope. He reports that when he would stand from seated position he would develop lightheadedness. He has been followed by Dr. Sanchez and was noted on event monitor to have WCT. She had a spect 05/16/19 with LVEF 62% and no ischemia. Echo 11/29/18 LVEF 55%, severe LAE, mod ERICKA, moderate calcific ?He wore an event monitor in July which showed atrial fibrillation with multiple nocturnal pauses up to 3 seconds in a pattern suggestive of sleep apnea. There was a 4 beat episode of WCT that could be NSVT or aberrancy. Holter 11/24/18 for afib showed avg HR 70 bpm, range 36-178 with longest RR 2.5 seconds. He has had postural lightheadedness with standing for about a year. Was seen by neurology had a short course of Keppra and an EEG that was reportedly negative. He has permanent atrial fibrillation. CV2 5(>75,HTN, TIA) and is on rivaroxaban. Importantly, Mr. Caballero reports that he had stopped his terazosin and he feels like his postural lightheadedness resolved with this change. He denies symptomatic changes related to his BPH with stopping this medication. I discussed that his monitor is very suggestive of JUSTIN, his family member indicates that sometimes he appears to stop breathing when he sleeps. He and his daughter indicate that he has had a sleep study within the past few months but that they have not been called with the results. Interval history for today's visit 06/09/20: Patient presents today accompanied by his daughter. They report that patient has had recurrent episodes for the past 4-5 months occurring 3-4 times per week. These episodes occur after walking for less than 30 seconds, patient states his legs feel rubbery which causes him to fall. He denies associated lightheadedness, loss of consciousness, chest pain or shortness of breath and states the episodes always happened in the afternoon or evening. Daughter states that she has witnessed some episodes and patient's girlfriend whom he lives with, and was unable to come today, has witnessed these episodes and has been logging them. Daughter states that there are a lot of symptoms that patient does not report. His girlfriend checks his blood pressure, pulse, saturation, temperature twice a day. She has also checked blood pressure and pulse after these episodes and are found to be normal. They indicate that at times after falling he is very stiff, other times limp, usually fuzzy sometimes shaking, sometimes glassy eyed, sometimes pale colored, patient doesn't remember what happens. He's had no injuries or associated incontinence. 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 Sanchez. Daughter states his sleep study last year showed borderline for needing treatment. Review of Systems Constitutional: Negative for chills, fever, malaise/fatigue and weight loss. HENT: Negative for nosebleeds. Denies snoring and excessive daytime sleepiness Eyes: Negative. Respiratory: Negative for cough, hemoptysis, sputum production and shortness of breath. Cardiovascular: Negative for chest pain, palpitations, orthopnea and PND. Gastrointestinal: Negative for blood in stool, constipation, diarrhea, nausea and vomiting. Genitourinary: Negative for dysuria and hematuria. Musculoskeletal: Positive for falls (see HPI). Skin: Negative. Neurological: Negative for dizziness, loss of consciousness and headaches. PAST MEDICAL HISTORY Diagnosis Date - Aortic valve stenosis - Atrial fibrillation (HCC) Permanent - BPH (benign prostatic hyperplasia) - Essential hypertension, benign - Lightheadedness - Other and unspecified hyperlipidemia - Palpitations - Primary malignant neoplasm of skin of scalp - Transient cerebral ischemia PAST SURGICAL HISTORY Procedure Laterality Date - INSERT CATH,ART,PERCUT,MAMTA ERM 03/29/06 RIGHT MERYL - THROMBOENDARTECTMY NECK,NECK INCIS 03/29/06 LEFT CEA Social History Tobacco Use - Smoking status: Never Smoker - Smokeless tobacco: Never Used Substance Use Topics - Alcohol use: Not Currently Frequency: 2-4 times a month Drinks per session: 1 or 2 Binge frequency: Never - Drug use: No History reviewed. No pertinent family history. ALLERGIES No Known Allergies MEDICATIONS: rivaroxaban (XARELTO) 20 mg tablet Take 20 mg by mouth daily with dinner. metoprolol tartrate, short acting, (LOPRESSOR) 25 mg tablet Take 25 mg by mouth twice daily. simvastatin (ZOCOR) 40 mg tablet Take 40 mg by mouth daily at bedtime. amLODIPine-benazepril (LOTREL) 5-10 mg per capsule Take 1 capsule by mouth once daily. alendronate (FOSAMAX) 35 mg tablet Take 35 mg by mouth one time a week. PHYSICAL EXAMINATION: BP 130/62 Pulse 84 Resp 16 Ht 5' 7 (1.70m) Wt 154 lb (69.9kg) BMI 24.11 kg/(m2). Physical Exam Constitutional: He is oriented to person, place, and time and well-developed, well-nourished, and in no distress. HENT: Head: Normocephalic. Eyes: No scleral icterus. Neck: Neck supple. No JVD present. Carotid bruit is not present. Cardiovascular: Normal rate, S1 normal and S2 normal. An irregularly irregular rhythm present. Exam reveals no gallop. No murmur heard. Pulses: Radial pulses are 3+ on the right side and 3+ on the left side. No edema lower extremities. Pulmonary/Chest: Effort normal and breath sounds normal. Abdominal: Soft. Bowel sounds are normal. Neurological: He is alert and oriented to person, place, and time. Gait normal. Skin: Skin is warm, dry and intact. Psychiatric: Affect normal. Nursing note and vitals reviewed. CARDIOVASCULAR MEDICINE TESTING: Electrocardiogram today: Atrial fibrillation with premature ventricular or aberrantly conducted complexes, ventricular rate 82 bpm, right bundle branch block. I have personally reviewed the Electrocardiogram. Echocardiogram 11/29/18 showed EF 55%, severely dilated left atrium, moderately dilated right atrium, moderate calcified aortic stenosis. ASSESSMENT AND PLAN: ASSESSMENT/PLAN: 1. Postural lightheadedness - ICD9: 780.4, ICD10: R42 (primary diagnosis) Prior history of postural lightheadedness which resolved after stopping Terazosin. Recurrent episodes of falls but no lightheadedness and no true syncope. Episodes may be from postural hypotension. We will obtain an event monitor for 30 days and an echocardiogram to determine if recent episodes of falling are related to arrhythmia. I informed patient and daughter that the episodes may not be related to a heart rhythm problem and encouraged them to also see PCP. 2. Permanent atrial fibrillation (HCC) - ICD9: 427.31, ICD10: I48.21 Long-standing permanent atrial fibrillation; asymptomatic; Holter monitor 11/24/18 showed atrial fibrillation, average heart rate 70 bpm, range 36?178 bpm. EKG today shows atrial fibrillation with controlled ventricular rate at 82 bpm with RBBB. On rate control therapy with metoprolol tartrate 25 mg twice a day. 3. At risk for stroke - ICD9: V15.89, ICD10: Z91.89 Due to atrial fibrillation with [id number] = 5 (HTN, TIA, age greater than 75) and is anticoagulated on Xarelto 20 mg daily. 4. Current use of group home anticoagulation - ICD9: V58.61, ICD10: Z79.01 Xarelto 20 mg daily for stroke prevention in the setting of atrial fibrillation. Have to consider if risk of anticoagulation therapy exceeds benefits in the setting of frequent falls. Decision will be deferred to PCP. No bleeding issues. 5. Nonrheumatic aortic valve stenosis - ICD9: 424.1, ICD10: I35.0 Echocardiogram 11/29/18 showed moderate AF due to calcification. In light of frequent falls, will repeat echocardiogram. 6. 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 EKG today shows atrial fibrillation with premature ventricular or aberrantly conducted complexes and right bundle branch block. We will obtain 30 day event monitor and repeat echocardiogram. I recommended 30 day event monitor and repeat echocardiogram due to multiple falls. Patient requests to have the testing done in [place] so I gave her daughter requisitions or they will request testing to be done by Dr. Sanchez. Sam Velazco APRN.BACK TENDER [employer]ARD Return for follow-up with Dr. Wren in 3 months, EKG. This note was partially generated using [employer] recognition system, and there may be some incorrect words, spellings, and punctuation that were not noted in checking the note before saving. Sam Velazco APRN.EDMUND, BACK TENDER [employer]ARD 06/09/2020 2:53 PM Signed Atrial Fibrillation What is atrial fibrillation? Atrial fibrillation (also called A-fib) is a fast or irregular heartbeat that starts in the upper chambers of the heart. The abnormal heartbeat affects the ability of the heart to pump blood to the rest of the body. What is the cause? An electrical signal in your heart starts each heartbeat, causing the heart muscle to squeeze (contract). Normally, this signal starts in the upper right chamber of the heart (the right atrium) at a place called the sinus node. The signal then follows normal pathways to the upper left atrium and to the lower chambers of the heart (the ventricles). When you have atrial fibrillation, electrical signals don?t start in the normal place in the right atrium and don?t travel normally. This can cause the upper chambers of the heart (atria) to beat very fast and not in a normal pattern. Common causes of heart rhythm problems are conditions that damage the heart, like coronary artery disease, heart attack, or heart failure. Problems with the heart valves are another common cause. The heart has 4 valves that open and close with each heartbeat to help blood flow in the right direction through the heart. Other causes of atrial fibrillation include: -Health problems, such as a stroke, lung disease, diabetes, overactive thyroid gland, or high blood pressure -Abuse of alcohol or drugs, such as cocaine Sometimes no cause can be found. What are the symptoms? Some people don?t have any symptoms. When atrial fibrillation does cause symptoms, the most common ones are: -Feeling like your heart is beating too fast or too hard or skipping beats or fluttering -Feeling tired or weak all the time Symptoms that are more serious include: -Chest pain -Trouble breathing -Lightheadedness or dizziness -confusion How is it diagnosed? Your healthcare provider will ask about your symptoms and medical history and examine you. Tests may include: -An ECG (also called an EKG), which measures and records your heartbeat. You may have an ECG while you are resting or while you exercise on a treadmill. You may also be asked to wear a small portable ECG monitor for a few days or sometimes a couple weeks. -Blood tests -An echocardiogram, which uses sound waves (ultrasound) to show the structures of the heart, like the valves How is it treated? The goal of treatment is to help the heart keep a normal rhythm. Your treatment depends on the cause of the atrial fibrillation, how often you have symptoms, and the severity of your symptoms. If you have no symptoms, or your symptoms are fairly mild, you may not need treatment. For some people atrial fibrillation lasts just a short time and the heart goes back to a normal rhythm on its own. If you keep having spells of atrial fibrillation, treatment may help keep you from having so many spells. If a health problem like a leaky heart valve is causing the atrial fibrillation, treating the health problem may also treat the fast or irregular heartbeat. Other possible treatments are: -Medicine: Your provider may prescribe medicine to slow or restore a normal heart rate and rhythm. You may also need medicine to prevent blood clots because when the heart beats irregularly, some of the blood can stay in the upper chambers too long. This makes it easier for blood clots to form, increasing your risk of having a stroke or heart attack. -Electrical cardioversion: First, you will be given medicine called anesthesia to keep you from feeling pain during the procedure. Then your chest will be given an electrical shock. The electrical shock should make your heart start beating normally again. You may need medicine to keep your heart rhythm normal after this procedure. -Ablation: Ablation is a procedure that uses a small tube called a catheter to deliver energy to the inside of the heart. The energy (usually radio waves) scars small areas of heart tissue. The scars block abnormal electrical pathways and help you have a normal heart rhythm. With some types of ablation treatment, you will also need a pacemaker. A pacemaker is an electronic device put under the skin of your chest to help control the heartbeat. How can I take care of myself? -Take your medicines as prescribed. -Keep your appointments for follow-up blood tests. -Make sure your healthcare provider knows about changes in your diet or medical condition. Your provider also needs to know about all prescription and nonprescription medicines, herbs, or supplements that you are taking. Some medicines may interact with your heart medicine or increase your risk for atrial fibrillation. -If you want to drink alcohol, ask your provider how much is safe for you to drink. -Follow your healthcare provider's instructions. Ask your provider: ?How and when you will hear your test results ?How long it will take to recover ?What activities you should avoid and when you can return to your normal activities ?How to take care of yourself at home ?What symptoms or problems you should watch for and what to do if you have them -Make sure you know when you should come back for a checkup. How can I help prevent atrial fibrillation? The best prevention is to have a heart-healthy lifestyle. -Keep a healthy weight. -Eat a healthy diet that is low in sodium and saturated and trans fat. -Stay fit with the right kind of exercise for you. -Decrease stress. -Don?t smoke. -Limit your use of alcohol. If you have heart disease or high blood pressure, follow your healthcare provider's instructions for treatment. Developed by [employer]. Published by [employer]. Copyright ?2014 [employer] and/or one of its subsidiaries. All rights reserved. Referring Provider: SELF [200] Allergies As of Date: 06/09/2020 (No Known Allergies) Date Reviewed: 06/09/2020 Reviewed by: Sam (Library Media Specialist [employer]) EDMUND Velazco - Fully Assessed Reason for Visit: Follow Up [171] Primary Visit Diagnosis:Postural lightheadedness [R42] Other Visit Diagnoses:Permanent atrial fibrillation (HCC) [I48.21] At risk for stroke [Z91.89] Current use of group home anticoagulation [Z79.01] Nonrheumatic aortic valve stenosis [I35.0] Wide-complex tachycardia (HCC) [I47.2] Order(s):ECG B/O W INTERP (MED OFFICE) [ECG06] Order #: [id number] ECHO [436981] Order #: [id number]: 1 FUTURE EVENT MONITOR [5362707] Order #: [id number]: 1 Prescriptions as of 06/09/2020 Sig: RIVAROXABAN 20 MG TABLET Take 20 mg by mouth daily wit* METOPROLOL TARTRATE 25 MG TAB* Take 25 mg by mouth twice satish* SIMVASTATIN 40 MG TABLET Take 40 mg by mouth daily at * AMLODIPINE 5 MG-BENAZEPRIL 10* Take 1 capsule by mouth once * ALENDRONATE 35 MG TABLET Take 35 mg by mouth one time * Problem List As Of Date 06/09/2020 Noted Resolved 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 Atrial fibrillation (also called A-fib) is a fast or irregular heartbeat that starts in the upper chambers of the heart. The abnormal heartbeat affects the ability of the heart to pump blood to the rest of the body. What is the cause? An electrical signal in your heart starts each heartbeat, causing the heart muscle to squeeze (contract). Normally, this signal starts in the upper right chamber of the heart (the right atrium) at a place called the sinus node. The signal then follows normal pathways to the upper left atrium and to the lower chambers of the heart (the ventricles). When you have atrial fibrillation, electrical signals don?t start in the normal place in the right atrium and don?t travel normally. This can cause the upper chambers of the heart (atria) to beat very fast and not in a normal pattern. Common causes of heart rhythm problems are conditions that damage the heart, like coronary artery disease, heart attack, or heart failure. Problems with the heart valves are another common cause. The heart has 4 valves that open and close with each heartbeat to help blood flow in the right direction through the heart. Other causes of atrial fibrillation include: -Health problems, such as a stroke, lung disease, diabetes, overactive thyroid gland, or high blood pressure -Abuse of alcohol or drugs, such as cocaine Sometimes no cause can be found. What are the symptoms? Some people don?t have any symptoms. When atrial fibrillation does cause symptoms, the most common ones are: -Feeling like your heart is beating too fast or too hard or skipping beats or fluttering -Feeling tired or weak all the time Symptoms that are more serious include: -Chest pain -Trouble breathing -Lightheadedness or dizziness -confusion How is it diagnosed? Your healthcare provider will ask about your symptoms and medical history and examine you. Tests may include: -An ECG (also called an EKG), which measures and records your heartbeat. You may have an ECG while you are resting or while you exercise on a treadmill. You may also be asked to wear a small portable ECG monitor for a few days or sometimes a couple weeks. -Blood tests -An echocardiogram, which uses sound waves (ultrasound) to show the structures of the heart, like the valves How is it treated? The goal of treatment is to help the heart keep a normal rhythm. Your treatment depends on the cause of the atrial fibrillation, how often you have symptoms, and the severity of your symptoms. If you have no symptoms, or your symptoms are fairly mild, you may not need treatment. For some people atrial fibrillation lasts just a short time and the heart goes back to a normal rhythm on its own. If you keep having spells of atrial fibrillation, treatment may help keep you from having so many spells. If a health problem like a leaky heart valve is causing the atrial fibrillation, treating the health problem may also treat the fast or irregular heartbeat. Other possible treatments are: -Medicine: Your provider may prescribe medicine to slow or restore a normal heart rate and rhythm. You may also need medicine to prevent blood clots because when the heart beats irregularly, some of the blood can stay in the upper chambers too long. This makes it easier for blood clots to form, increasing your risk of having a stroke or heart attack. -Electrical cardioversion: First, you will be given medicine called anesthesia to keep you from feeling pain during the procedure. Then your chest will be given an electrical shock. The electrical shock should make your heart start beating normally again. You may need medicine to keep your heart rhythm normal after this procedure. -Ablation: Ablation is a procedure that uses a small tube called a catheter to deliver energy to the inside of the heart. The energy (usually radio waves) scars small areas of heart tissue. The scars block abnormal electrical pathways and help you have a normal heart rhythm. With some types of ablation treatment, you will also need a pacemaker. A pacemaker is an electronic device put under the skin of your chest to help control the heartbeat. How can I take care of myself? -Take your medicines as prescribed. -Keep your appointments for follow-up blood tests. -Make sure your healthcare provider knows about changes in your diet or medical condition. Your provider also needs to know about all prescription and nonprescription medicines, herbs, or supplements that you are taking. Some medicines may interact with your heart medicine or increase your risk for atrial fibrillation. -If you want to drink alcohol, ask your provider how much is safe for you to drink. -Follow your healthcare provider's instructions. Ask your provider: ?How and when you will hear your test results ?How long it will take to recover ?What activities you should avoid and when you can return to your normal activities ?How to take care of yourself at home ?What symptoms or problems you should watch for and what to do if you have them -Make sure you know when you should come back for a checkup. How can I help prevent atrial fibrillation? The best prevention is to have a heart-healthy lifestyle. -Keep a healthy weight. -Eat a healthy diet that is low in sodium and saturated and trans fat. -Stay fit with the right kind of exercise for you. -Decrease stress. -Don?t smoke. -Limit your use of alcohol. If you have heart disease or high blood pressure, follow your healthcare provider's instructions for treatment. Developed by [employer]. Published by [employer]. Copyright ?2013 [employer] and/or one of its subsidiaries. All rights reserved. Visit Notes: >> Oriana (Hector) HECTOR Jordan Mon Jun 09, 2020 1:56 PM Status: Signed Patient has no cardiac complaints today. Disposition: Return for follow-up with Dr. Wren in 3 months, EKG. Follow-up and Disposition History Recorded Letter Text Letter Text Encounter Status:Closed by SAM DOYLE on 06/09/20 [facility] PROGRESSon 06-09-2020 PROGRESS HNO ID: [id number] Author: Sam (Library Media Specialistdidi Romero) EDMUND Velazco Service: ? Author Type: Nurse Specialist Type: Progress Notes Filed: 06/09/2020 6:03 PM Note Text: PRIMARY CARE PHYSICIAN: Jono Vásquez DO [address] [place] [id number] Patient Care Team: Jono Vásquez as PCP - General (Family Practice) CHIEF COMPLAINT: Patient presents with: Follow Up HISTORY OF PRESENT ILLNESS: Mr. Marcum is a 85 year old male who presents today for an Electrophysiology follow-up visit. Patient is known to Dr. Wren, last seen in the office 10/29/19 for initial visit. History copied forward from Dr. Wren note 10/12/19, edited as needed: Mr. Marcum is a 84 year old male who presents today for evaluation of syncope. He denies having had syncope or near syncope. He reports that when he would stand from seated position he would develop lightheadedness. He has been followed by Dr. Sanchez and was noted on event monitor to have WCT. She had a spect 05/16/19 with LVEF 62% and no ischemia. Echo 11/29/18 LVEF 55%, severe LAE, mod ERICKA, moderate calcific ?He wore an event monitor in July which showed atrial fibrillation with multiple nocturnal pauses up to 3 seconds in a pattern suggestive of sleep apnea. There was a 4 beat episode of WCT that could be NSVT or aberrancy. Holter 11/24/18 for afib showed avg HR 70 bpm, range 36-178 with longest RR 2.5 seconds. He has had postural lightheadedness with standing for about a year. Was seen by neurology had a short course of Keppra and an EEG that was reportedly negative. He has permanent atrial fibrillation. CV2 5(>75,HTN, TIA) and is on rivaroxaban. Importantly, Mr. Caballero reports that he had stopped his terazosin and he feels like his postural lightheadedness resolved with this change. He denies symptomatic changes related to his BPH with stopping this medication. I discussed that his monitor is very suggestive of JUSTIN, his family member indicates that sometimes he appears to stop breathing when he sleeps. He and his daughter indicate that he has had a sleep study within the past few months but that they have not been called with the results. Interval history for today's visit 06/09/20: Patient presents today accompanied by his daughter. They report that patient has had recurrent episodes for the past 4-5 months occurring 3-4 times per week. These episodes occur after walking for less than 30 seconds, patient states his legs feel rubbery which causes him to fall. He denies associated lightheadedness, loss of consciousness, chest pain or shortness of breath and states the episodes always happened in the afternoon or evening. Daughter states that she has witnessed some episodes and patient's girlfriend whom he lives with, and was unable to come today, has witnessed these episodes and has been logging them. Daughter states that there are a lot of symptoms that patient does not report. His girlfriend checks his blood pressure, pulse, saturation, temperature twice a day. She has also checked blood pressure and pulse after these episodes and are found to be normal. They indicate that at times after falling he is very stiff, other times limp, usually fuzzy sometimes shaking, sometimes glassy eyed, sometimes pale colored, patient doesn't remember what happens. He's had no injuries or associated incontinence. 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 Sanchez. Daughter states his sleep study last year showed borderline for needing treatment. Review of Systems Constitutional: Negative for chills, fever, malaise/fatigue and weight loss. HENT: Negative for nosebleeds. Denies snoring and excessive daytime sleepiness Eyes: Negative. Respiratory: Negative for cough, hemoptysis, sputum production and shortness of breath. Cardiovascular: Negative for chest pain, palpitations, orthopnea and PND. Gastrointestinal: Negative for blood in stool, constipation, diarrhea, nausea and vomiting. Genitourinary: Negative for dysuria and hematuria. Musculoskeletal: Positive for falls (see HPI). Skin: Negative. Neurological: Negative for dizziness, loss of consciousness and headaches. PAST MEDICAL HISTORY Diagnosis Date - Aortic valve stenosis - Atrial fibrillation (HCC) Permanent - BPH (benign prostatic hyperplasia) - Essential hypertension, benign - Lightheadedness - Other and unspecified hyperlipidemia - Palpitations - Primary malignant neoplasm of skin of scalp - Transient cerebral ischemia PAST SURGICAL HISTORY Procedure Laterality Date - INSERT CATH,ART,PERCUT,MAMTA ERM 03/29/06 RIGHT MERYL - THROMBOENDARTECTMY NECK,NECK INCIS 03/29/06 LEFT CEA Social History Tobacco Use - Smoking status: Never Smoker - Smokeless tobacco: Never Used Substance Use Topics - Alcohol use: Not Currently Frequency: 2-4 times a month Drinks per session: 1 or 2 Binge frequency: Never - Drug use: No History reviewed. No pertinent family history. ALLERGIES No Known Allergies MEDICATIONS: rivaroxaban (XARELTO) 20 mg tablet Take 20 mg by mouth daily with dinner. metoprolol tartrate, short acting, (LOPRESSOR) 25 mg tablet Take 25 mg by mouth twice daily. simvastatin (ZOCOR) 40 mg tablet Take 40 mg by mouth daily at bedtime. amLODIPine-benazepril (LOTREL) 5-10 mg per capsule Take 1 capsule by mouth once daily. alendronate (FOSAMAX) 35 mg tablet Take 35 mg by mouth one time a week. PHYSICAL EXAMINATION: BP 130/62 Pulse 84 Resp 16 Ht 5' 7 (1.70m) Wt 154 lb (69.9kg) BMI 24.11 kg/(m2). Physical Exam Constitutional: He is oriented to person, place, and time and well-developed, well-nourished, and in no distress. HENT: Head: Normocephalic. Eyes: No scleral icterus. Neck: Neck supple. No JVD present. Carotid bruit is not present. Cardiovascular: Normal rate, S1 normal and S2 normal. An irregularly irregular rhythm present. Exam reveals no gallop. No murmur heard. Pulses: Radial pulses are 3+ on the right side and 3+ on the left side. No edema lower extremities. Pulmonary/Chest: Effort normal and breath sounds normal. Abdominal: Soft. Bowel sounds are normal. Neurological: He is alert and oriented to person, place, and time. Gait normal. Skin: Skin is warm, dry and intact. Psychiatric: Affect normal. Nursing note and vitals reviewed. CARDIOVASCULAR MEDICINE TESTING: Electrocardiogram today: Atrial fibrillation with premature ventricular or aberrantly conducted complexes, ventricular rate 82 bpm, right bundle branch block. I have personally reviewed the Electrocardiogram. Echocardiogram 11/29/18 showed EF 55%, severely dilated left atrium, moderately dilated right atrium, moderate calcified aortic stenosis. ASSESSMENT AND PLAN: ASSESSMENT/PLAN: 1. Postural lightheadedness - ICD9: 780.4, ICD10: R42 (primary diagnosis) Prior history of postural lightheadedness which resolved after stopping Terazosin. Recurrent episodes of falls but no lightheadedness and no true syncope. Episodes may be from postural hypotension. We will obtain an event monitor for 30 days and an echocardiogram to determine if recent episodes of falling are related to arrhythmia. I informed patient and daughter that the episodes may not be related to a heart rhythm problem and encouraged them to also see PCP. 2. Permanent atrial fibrillation (HCC) - ICD9: 427.31, ICD10: I48.21 Long-standing permanent atrial fibrillation; asymptomatic; Holter monitor 11/24/18 showed atrial fibrillation, average heart rate 70 bpm, range 36?178 bpm. EKG today shows atrial fibrillation with controlled ventricular rate at 82 bpm with RBBB. On rate control therapy with metoprolol tartrate 25 mg twice a day. 3. At risk for stroke - ICD9: V15.89, ICD10: Z91.89 Due to atrial fibrillation with [id number] = 5 (HTN, TIA, age greater than 75) and is anticoagulated on Xarelto 20 mg daily. 4. Current use of group home anticoagulation - ICD9: V58.61, ICD10: Z79.01 Xarelto 20 mg daily for stroke prevention in the setting of atrial fibrillation. Have to consider if risk of anticoagulation therapy exceeds benefits in the setting of frequent falls. Decision will be deferred to PCP. No bleeding issues. 5. Nonrheumatic aortic valve stenosis - ICD9: 424.1, ICD10: I35.0 Echocardiogram 11/29/18 showed moderate AF due to calcification. In light of frequent falls, will repeat echocardiogram. 6. 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 EKG today shows atrial fibrillation with premature ventricular or aberrantly conducted complexes and right bundle branch block. We will obtain 30 day event monitor and repeat echocardiogram. I recommended 30 day event monitor and repeat echocardiogram due to multiple falls. Patient requests to have the testing done in [place] so I gave her daughter requisitions or they will request testing to be done by Dr. Sanchez. Sam Velazco APRN.[employer] Return for follow-up with Dr. Wren in 3 months, EKG. This note was partially generated using [employer] voice recognition system, and there may be some incorrect words, spellings, and punctuation that were not noted in checking the note before saving. [facility] CNOVon 10-29-2019 CNOV Office Visit (AGCARDPOB) SHREE MARCUM ([id number]) 1935 M Date Time Provider Department 10/29/19 1:20 PM DEONTE WREN AGCARDPOB During your visit today, we recorded the following information about you: Pulse Blood pressure Weight Height 72/minute 120/70 69.4 kg 1.702 m Joanie Farah CMA 10/29/2019 1:20 PM Signed No cardiac complaints today Joanie Farah CMA Deonte Wren 10/29/2019 4:17 PM Signed PRIMARY CARE PHYSICIAN: Dawit Alas DO ([facility]) [address] [place] [address] REFERRING PHYSICIAN: SELF CHIEF COMPLAINT: No chief complaint on file. HISTORY OF PRESENT ILLNESS: Mr. Marcum is a 84 year old male who presents today for evaluation of syncope. He denies having had syncope or near syncope. He reports that when he would stand from seated position he would develop lightheadedness. He has been followed by Dr. Sanchez and was noted on event monitor to have WCT. She had a spect 05/16/19 with LVEF 62% and no ischemia. Echo 11/29/18 LVEF 55%, severe LAE, mod ERICKA, moderate calcific He wore an event monitor in July which showed atrial fibrillation with mulitiple nocturnal pauses up to 3 seconds in a pattern suggestive of sleep apnea. There was a 4 beat episode of WCT that could be NSVT or abberrancy. holter 11/24/18 for afib showed avg HR 70 bpm, range 36-178 with longest RR 2.5 seconds. He has had postural lightheadedness with standing for about a year. Was seen by neurology had a short course of Keppra and an EEG that was reportedly negative. He has permanent atrial fibrillation. CV2 5(>75,HTN, TIA) and is on rivaroxaban. Importantly, Mr. Caballero reports that he had stopped his terazosin and he feels like his postural lightheadedness resolved with this change. He denies symptomatic changes related to his BPH with stopping this medication. I discussed that his monitor is very suggestive of JUSTIN, his family member indicates that sometimes he appears to stop breathing when he sleeps. He and his daughter indicate that he has had a sleep study within the past few months but that they have not been called with the results. PAST MEDICAL HISTORY Diagnosis Date - Aortic valve stenosis - Atrial fibrillation (HCC) - BPH (benign prostatic hyperplasia) - Essential hypertension, benign - Other and unspecified hyperlipidemia - Palpitations - Primary malignant neoplasm of skin of scalp - Transient cerebral ischemia PAST SURGICAL HISTORY Procedure Laterality Date - INSERT CATH,ART,PERCUT,MAMTA ERM 03/29/06 RIGHT MERYL - THROMBOENDARTECTMY NECK,NECK INCIS 03/29/06 LEFT CEA No family history on file. Social History Tobacco Use - Smoking status: Never Smoker Substance Use Topics - Alcohol use: Yes - Drug use: No ALLERGIES No Known Allergies MEDICATIONS: LOTREL 10 MG-20 MG CAP Take one(1) tablet daily. HYDROCHLOROTHIAZIDE 25 MG TAB Take one(1) tablet daily. ZOCOR 40 MG TAB Take one(1) tablet daily. TERAZOSIN 5 MG CAP Take one(1) tablet daily. PLAVIX 75 MG TAB One tab daily Review of Systems Constitutional: Negative. HENT: Negative. Eyes: Negative. Respiratory: Negative. Cardiovascular: Negative. Gastrointestinal: Negative. Genitourinary: Negative. Musculoskeletal: Negative. Skin: Negative. Neurological: Negative. Endo/Heme/Allergies: Negative. Psychiatric/Behavioral : Negative. PHYSICAL EXAMINATION: Physical Exam Constitutional: He is oriented to person, place, and time and well-developed, well-nourished, and in no distress. No distress. HENT: Head: Normocephalic and atraumatic. Eyes: Pupils are equal, round, and reactive to light. Conjunctivae are normal. No scleral icterus. Neck: Normal range of motion. No JVD present. No thyromegaly present. Cardiovascular: Regular rhythm, normal heart sounds and normal pulses. PMI is not displaced. Exam reveals no gallop, no distant heart sounds and no friction rub. No murmur heard. Pulmonary/Chest: Effort normal and breath sounds normal. No stridor. Abdominal: Soft. There is no hepatomegaly. There is no abdominal tenderness. There is no rebound and no guarding. Musculoskeletal: General: No deformity or edema. Neurological: He is alert and oriented to person, place, and time. Coordination normal. Skin: Skin is warm and dry. No rash noted. He is not diaphoretic. Psychiatric: Mood and affect normal. Vitals reviewed. Pertinent Labs: CBC: No results found for: HB, HCT, WBC, PLT BMP: No results found for: GLUC, K, NA, CHLOR, CO2, CREAT, BUN, ANION, CA INR: TSH: No results found for: TSHREFL CARDIOVASCULAR MEDICINE TESTING: IMPRESSION: 1. Postural lightheadedness - ICD9: 780.4, ICD10: R42 (primary diagnosis) 2. Permanent atrial fibrillation (HCC) - ICD9: 427.31, ICD10: I48.21 3. Aortic valve stenosis, etiology of cardiac valve disease unspecified - ICD9: 424.1, ICD10: I35.0 4. History of TIA (transient ischemic attack) - ICD9: V12.54, ICD10: Z86.73 5. 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 Caballero's postural lightheadedness was very consitent with orthostatic hypotension and he indicates that this symptom resolved with stopping his terazosin. He has long standing permanent atrial fibrillation and denies symptoms of palpitations, and though he has some RVR and SVR, globally his HRs appear reasonable with an AVG rate of 70 bpm and not prolonged RVR. His nocturnal pauses are very suggestive of JUSTIN, he indicates he was recently tested for this. I advised that he contact Dr. Mcgrath to follow up on the results of his sleep study. If the study were to confirm the presence of JUSTIN, I recommend treatment with CPAP and stressed the importance from a cardiac perspective. His monitor showed 4 beats of either NSVT or AF with abberrancy, I discussed with him and his family that this offers little in the way of signficance for prognosis and management and is not likely related to his clinical symptoms. I recommend no additional work up or treatment for this unless new symptoms or clinical changes would warrant this. We discussed that he could need a pacemaker in the future, but that it does not appear to be necessary at this time. I recommend continued observation. He will have his routine follow up with Dr. Sanchez in [place] and I can see as needed for any changes or new concerns. I provided them my contact information. Deonte Wren DO Referring Provider: SELF [[id number]] Allergies As of Date: 10/29/2019 (No Known Allergies) Date Reviewed: 10/29/2019 Reviewed by: Joanie Farah - Fully Assessed Reason for Visit: New Patient [[id number]] Cmt: referral per Pradeep Fairchild NP for syncope and a-fib Primary Visit Diagnosis:Postural lightheadedness [R42] Other Visit Diagnoses:Permanent atrial fibrillation (HCC) [I48.21] Aortic valve stenosis, etiology of cardiac valve disease unspecified [I35.0] History of TIA (transient ischemic attack) [Z86.73] Essential hypertension [I10] Tachy-bernardo syndrome (HCC) [I49.5] Order(s):ECG B/O W INTERP (MED OFFICE) [ECG06] Order #: [id number] Prescriptions as of 10/29/2019 Sig: RIVAROXABAN 20 MG TABLET Take 20 mg by mouth daily wit* METOPROLOL TARTRATE 25 MG TAB* Take 25 mg by mouth twice satish* SIMVASTATIN 40 MG TABLET Take 40 mg by mouth daily at * AMLODIPINE 5 MG-BENAZEPRIL 10* Take 1 capsule by mouth once * ALENDRONATE 35 MG TABLET Take 35 mg by mouth one time * Problem List As Of Date 10/29/2019 Noted Resolved 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 Disc: Course of therapy completed HYDROCHLOROTHIAZIDE 25 MG TAB 0 03/22/2006 10/29/2019 Class: Med Update Route: ORAL Sig: Take one(1) tablet daily. Disc: Course of therapy completed ZOCOR 40 MG TAB 0 03/22/2006 10/29/2019 Class: Med Update Route: ORAL Sig: Take one(1) tablet daily. Disc: Course of therapy completed TERAZOSIN 5 MG CAP 0 03/22/2006 10/29/2019 Class: Med Update Route: ORAL Sig: Take one(1) tablet daily. Disc: Course of therapy completed PLAVIX 75 MG TAB 30 0 03/22/2006 10/29/2019 Class: Print RX Route: ORAL Sig: One tab daily Patient not taking: Disc: Course of therapy completed Disposition: Return if symptoms worsen or fail to improve. Follow-up and Disposition History Recorded Letter Text Encounter Status:Closed by DEONTE WREN on 10/29/19 [facility] PROGRESSon 10-29-2019 PROGRESS HNO ID: [id number] Author: Deonte Wren Service: ? Author Type: Physician Type: Progress Notes Filed: 10/29/2019 4:17 PM Note Text: PRIMARY CARE PHYSICIAN: Dawit Alas DO ([facility]) [address] [place] [address] REFERRING PHYSICIAN: SELF CHIEF COMPLAINT: No chief complaint on file. HISTORY OF PRESENT ILLNESS: Mr. Marcum is a 84 year old male who presents today for evaluation of syncope. He denies having had syncope or near syncope. He reports that when he would stand from seated position he would develop lightheadedness. He has been followed by Dr. Sanchez and was noted on event monitor to have WCT. She had a spect 05/16/19 with LVEF 62% and no ischemia. Echo 11/29/18 LVEF 55%, severe LAE, mod ERICKA, moderate calcific He wore an event monitor in July which showed atrial fibrillation with mulitiple nocturnal pauses up to 3 seconds in a pattern suggestive of sleep apnea. There was a 4 beat episode of WCT that could be NSVT or abberrancy. holter 11/24/18 for afib showed avg HR 70 bpm, range 36-178 with longest RR 2.5 seconds. He has had postural lightheadedness with standing for about a year. Was seen by neurology had a short course of Keppra and an EEG that was reportedly negative. He has permanent atrial fibrillation. CV2 5(>75,HTN, TIA) and is on rivaroxaban. Importantly, Mr. Caballero reports that he had stopped his terazosin and he feels like his postural lightheadedness resolved with this change. He denies symptomatic changes related to his BPH with stopping this medication. I discussed that his monitor is very suggestive of JUSTIN, his family member indicates that sometimes he appears to stop breathing when he sleeps. He and his daughter indicate that he has had a sleep study within the past few months but that they have not been called with the results. PAST MEDICAL HISTORY Diagnosis Date - Aortic valve stenosis - Atrial fibrillation (HCC) - BPH (benign prostatic hyperplasia) - Essential hypertension, benign - Other and unspecified hyperlipidemia - Palpitations - Primary malignant neoplasm of skin of scalp - Transient cerebral ischemia PAST SURGICAL HISTORY Procedure Laterality Date - INSERT CATH,ART,PERCUT,MAMTA ERM 03/29/06 RIGHT MERYL - THROMBOENDARTECTMY NECK,NECK INCIS 03/29/06 LEFT CEA No family history on file. Social History Tobacco Use - Smoking status: Never Smoker Substance Use Topics - Alcohol use: Yes - Drug use: No ALLERGIES No Known Allergies MEDICATIONS: LOTREL 10 MG-20 MG CAP Take one(1) tablet daily. HYDROCHLOROTHIAZIDE 25 MG TAB Take one(1) tablet daily. ZOCOR 40 MG TAB Take one(1) tablet daily. TERAZOSIN 5 MG CAP Take one(1) tablet daily. PLAVIX 75 MG TAB One tab daily Review of Systems Constitutional: Negative. HENT: Negative. Eyes: Negative. Respiratory: Negative. Cardiovascular: Negative. Gastrointestinal: Negative. Genitourinary: Negative. Musculoskeletal: Negative. Skin: Negative. Neurological: Negative. Endo/Heme/Allergies: Negative. Psychiatric/Behavioral : Negative. PHYSICAL EXAMINATION: Physical Exam Constitutional: He is oriented to person, place, and time and well-developed, well-nourished, and in no distress. No distress. HENT: Head: Normocephalic and atraumatic. Eyes: Pupils are equal, round, and reactive to light. Conjunctivae are normal. No scleral icterus. Neck: Normal range of motion. No JVD present. No thyromegaly present. Cardiovascular: Regular rhythm, normal heart sounds and normal pulses. PMI is not displaced. Exam reveals no gallop, no distant heart sounds and no friction rub. No murmur heard. Pulmonary/Chest: Effort normal and breath sounds normal. No stridor. Abdominal: Soft. There is no hepatomegaly. There is no abdominal tenderness. There is no rebound and no guarding. Musculoskeletal: General: No deformity or edema. Neurological: He is alert and oriented to person, place, and time. Coordination normal. Skin: Skin is warm and dry. No rash noted. He is not diaphoretic. Psychiatric: Mood and affect normal. Vitals reviewed. Pertinent Labs: CBC: No results found for: HB, HCT, WBC, PLT BMP: No results found for: GLUC, K, NA, CHLOR, CO2, CREAT, BUN, ANION, CA INR: TSH: No results found for: [facility] CARDIOVASCULAR MEDICINE TESTING: IMPRESSION: 1. Postural lightheadedness - ICD9: 780.4, ICD10: R42 (primary diagnosis) 2. Permanent atrial fibrillation (HCC) - ICD9: 427.31, ICD10: I48.21 3. Aortic valve stenosis, etiology of cardiac valve disease unspecified - ICD9: 424.1, ICD10: I35.0 4. History of TIA (transient ischemic attack) - ICD9: V12.54, ICD10: Z86.73 5. 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 Caballero's postural lightheadedness was very consitent with orthostatic hypotension and he indicates that this symptom resolved with stopping his terazosin. He has long standing permanent atrial fibrillation and denies symptoms of palpitations, and though he has some RVR and SVR, globally his HRs appear reasonable with an AVG rate of 70 bpm and not prolonged RVR. His nocturnal pauses are very suggestive of JUSTIN, he indicates he was recently tested for this. I advised that he contact Dr. Mcgrath to follow up on the results of his sleep study. If the study were to confirm the presence of JUSTIN, I recommend treatment with CPAP and stressed the importance from a cardiac perspective. His monitor showed 4 beats of either NSVT or AF with abberrancy, I discussed with him and his family that this offers little in the way of signficance for prognosis and management and is not likely related to his clinical symptoms. I recommend no additional work up or treatment for this unless new symptoms or clinical changes would warrant this. We discussed that he could need a pacemaker in the future, but that it does not appear to be necessary at this time. I recommend continued observation. He will have his routine follow up with Dr. Sanchez in [place] and I can see as needed for any changes or new concerns. I provided them my contact information. Deonte Wren DO Normal [facility] Vital Signs Date Time Vital Sign Value Performing Clinician Facility 04-17-2025 12:47-0400 Body height 175.[address] Alex Kelley DO Work Phone: [facility] 04-17-2025 12:47-0400 Body mass index (BMI) [Ratio] 22.6 kg/m2 Dr. Alex Kelley DO Work Phone: [facility] 04-17-2025 12:47-0400 Body weight 69.[address] Alex Kelley DO Work Phone: [facility] 04-17-2025 12:47-0400 Diastolic blood pressure 78 mm[Hg] Dr. Alex Kelley DO Work Phone: [facility] 04-17-2025 12:47-0400 Heart rate 70 /min Dr. Alex Kelley DO Work Phone: [facility] 04-17-2025 12:47-0400 Respiratory rate 20 /min Dr. Alex Kelley DO Work Phone: [facility] 04-17-2025 12:47-0400 Systolic blood pressure 111 mm[Hg] Dr. Alex Kelley DO Work Phone: [facility] 02-27-2025 13:38-0400 Body height 175.[address] Alex Kelley DO Work Phone: [facility] 02-27-2025 13:38-0400 Body mass index (BMI) [Ratio] 22.8 kg/m2 Dr. Alex Kelley DO Work Phone: [facility] 02-27-2025 13:38-0400 Body temperature 96.8 [degF] Dr. Alex Kelley DO Work Phone: [facility] 02-27-2025 13:38-0400 Body weight 70.[address] Alex Kelley DO Work Phone: [facility] 02-27-2025 13:38-0400 Diastolic blood pressure 78 mm[Hg] Dr. Alex Kelley DO Work Phone: [facility] 02-27-2025 13:38-0400 Heart rate 82 /min Dr. Alex Kelley DO Work Phone: [facility] 02-27-2025 13:38-0400 Respiratory rate 18 /min Dr. Alex Kelley DO Work Phone: [facility] 02-27-2025 13:38-0400 SaO2% (BldA) [Mass fraction] 98 % Dr. Alex Kelley DO Work Phone: [facility] 02-27-2025 13:38-0400 Systolic blood pressure 126 mm[Hg] Dr. Alex Kelley DO Work Phone: [facility] 12-12-2023 17:15-0500 Diastolic blood pressure 68 mm[Hg] Dr. Alex Kelley Work Phone: [facility] 12-12-2023 17:15-0500 Heart rate 78 /min Dr. Alex Kelley Work Phone: [facility] 12-12-2023 17:15-0500 Respiratory rate 18 /min Dr. Alex Kelley Work Phone: [facility] 12-12-2023 17:15-0500 SaO2% (BldA) [Mass fraction] 96 % Dr. Alex Kelley Work Phone: [facility] 12-12-2023 17:15-0500 Systolic blood pressure 156 mm[Hg] Dr. Alex Kelley Work Phone: [facility] 12-12-2023 09:21-0500 Body temperature 96 [degF] Dr. Alex Kelley Work Phone: [facility] 12-12-2023 01:44-0500 Body mass index (BMI) [Ratio] 23.6 kg/m2 Dr. Alex Kelley Work Phone: [facility] 12-12-2023 01:44-0500 Body weight 72.[address] Alex Kelley Work Phone: [facility] 12-11-2023 10:58-0500 Body height 175.[address] Alex Kelley Work Phone: [facility] 12-10-2023 12:49-0500 Diastolic blood pressure 72 mm[Hg] [facility] 12-10-2023 12:49-0500 Heart rate 81 /min [facility] 12-10-2023 12:49-0500 Systolic blood pressure 138 mm[Hg] [facility] 12-10-2023 11:51-0500 Body mass index (BMI) [Ratio] 24.8 kg/m2 [facility] 12-10-2023 11:51-0500 Body weight 72 kg [facility] 12-10-2023 11:51-0500 Respiratory rate 16 /min [facility] 12-10-2023 11:51-0500 SaO2% (BldA) [Mass fraction] 94 % [facility] 12-10-2023 07:47-0500 Body height 170.18 cm [facility] 12-10-2023 07:47-0500 Body temperature 97.7 [degF] [facility] 01-26-2023 11:11-0400 Body weight 72.68 kg [employer] Ute Walsh [employer] Work Phone: [facility] 01-26-2023 11:11-0400 Diastolic blood pressure 85 mm[Hg] [employer] Ute Walsh [employer] Work Phone: [facility] 01-26-2023 11:11-0400 Heart rate 75 /min [employer] Ute Mitchellers [employer] Work Phone: [facility] 01-26-2023 11:11-0400 Respiratory rate 18 /min [employer] Ute Mitchellers [employer] Work Phone: [facility] 01-26-2023 11:11-0400 SaO2% (BldA) [Mass fraction] 98 % [employer] Ute Mitchellers [employer] Work Phone: [facility] 01-26-2023 11:11-0400 Systolic blood pressure 138 mm[Hg] [employer] Ute Walsh [employer] Work Phone: [facility] 01-14-2023 16:00-0400 Body mass index (BMI) [Ratio] 24.2 kg/m2 [employer] Ute Walsh [employer] Work Phone: [facility] 01-14-2023 14:00-0400 Body temperature 97.9 [degF] [employer] Ute Mitchellers [employer] Work Phone: [facility] 01-14-2023 14:00-0400 Diastolic blood pressure 83 mm[Hg] [employer] Ute Mitchellers [employer] Work Phone: [facility] 01-14-2023 14:00-0400 Heart rate 68 /min [employer] Utecaroline Mitchellers [employer] Work Phone: [facility] 01-14-2023 14:00-0400 Respiratory rate 14 /min [employer] Ute Walsh [employer] Work Phone: [facility] 01-14-2023 14:00-0400 SaO2% (BldA) [Mass fraction] 98 % [employer] Ute Walsh [employer] Work Phone: [facility] 01-14-2023 14:00-0400 Systolic blood pressure 119 mm[Hg] [employer] Ute Walsh [employer] Work Phone: [facility] 01-13-2023 14:38-0400 Body height 170.18 cm [employer] Ute Walsh [employer] Work Phone: [facility] 01-13-2023 14:38-0400 Body weight 70.1 kg [employer] Ute Walsh [employer] Work Phone: [facility] 01-12-2023 13:40-0400 Body mass index (BMI) [Ratio] 24.9 kg/m2 [employer] Ute Walsh [employer] Work Phone: [facility] 01-12-2023 13:40-0400 Body weight 72.23 kg [employer] Ute Walsh [employer] Work Phone: [facility] 01-12-2023 13:40-0400 Diastolic blood pressure 80 mm[Hg] [employer] Utecaroline Mitchellers [employer] Work Phone: [facility] 01-12-2023 13:40-0400 Heart rate 72 /min [employer] Ute Walsh [employer] Work Phone: [facility] 01-12-2023 13:40-0400 Respiratory rate 18 /min [employer] Ute Nico [employer] Work Phone: [facility] 01-12-2023 13:40-0400 Systolic blood pressure 112 mm[Hg] [employer] Ute Walsh [employer] Work Phone: [facility] 08-12-2021 12:56-0400 Heart rate 63 /min NORMA VICENTE MD [facility] 08-12-2021 12:23-0400 Heart rate 65 /min NORMA VICENTE MD [facility] 08-12-2021 12:23-0400 Reason For Taking VItal Signs NORMA VICENTE MD [facility] 08-12-2021 11:36-0400 Body temperature 98.24 [degF] NORMA VICENTE MD [facility] 08-12-2021 11:36-0400 Diastolic Blood Pressure NBP 75 1 NORMA VICENTE MD [facility] 08-12-2021 11:36-0400 Heart rate 68 /min NORMA VICENTE MD [facility] 08-12-2021 11:36-0400 Mean blood pressure 90 mm[Hg] NORMA VICENTE MD [facility] 08-12-2021 11:36-0400 Reason For Taking VItal Signs NORMA VICENTE MD [facility] 08-12-2021 11:36-0400 Respiratory rate 18 /min NORMA VICENTE MD [facility] 08-12-2021 11:36-0400 Systolic Blood Pressure NBP 133 1 NORMA VICENTE MD [address] [place] [address] 08-12-2021 08:42-0400 Diastolic Blood Pressure NBP 76 1 NORMA VICENTE MD [address] [place] [address] 08-12-2021 08:42-0400 Heart rate 76 /min NORMA VICENTE MD [facility] 08-12-2021 08:42-0400 Mean blood pressure 86 mm[Hg] NORMA VICENTE MD [facility] 08-12-2021 08:42-0400 Reason For Taking VItal Signs NORMA VICENTE MD [facility] 08-12-2021 08:42-0400 Respiratory rate 18 /min NORMA VICENTE MD [facility] 08-12-2021 08:42-0400 Systolic Blood Pressure NBP 119 1 NORMA VICENTE MD [facility] 08-12-2021 07:09-0400 Body temperature 98.42 [degF] NORMA VICENTE MD [facility] 08-12-2021 07:09-0400 Diastolic Blood Pressure NBP 83 1 NORMA VICENTE MD [facility] 08-12-2021 07:09-0400 Mean blood pressure 95 mm[Hg] NORMA VICENTE MD [facility] 08-12-2021 07:09-0400 Systolic Blood Pressure NBP 127 1 NORMA VICENTE MD [address] [place] [address] 08-12-2021 03:59-0400 Body temperature 97.7 [degF] NORMA VICENTE MD [address] [place] [address] 08-12-2021 03:59-0400 Respiratory rate 18 /min NORMA VICENTE MD [address] [place] [address] 08-11-2021 18:24-0400 Heart rate 115 /min NORMA VICENTE MD [address] [place] [address] 08-11-2021 08:15-0400 Body height 170.2 cm NORMA VICENTE MD [facility] 08-11-2021 08:15-0400 Body weight 67.6 kg NORMA VICENTE MD [address] [place] [address] 08-11-2021 08:15-0400 Body weight 23.34 kg/m2 NORMA VICENTE MD [address] [place] [address] 08-11-2021 08:15-0400 diastolic 92 mm[Hg] NORMA VICENTE MD [facility] 08-11-2021 08:15-0400 Heart rate 78 /min NORMA VICENTE MD [facility] 08-11-2021 08:15-0400 systolic 161 mm[Hg] NORMA VICENTE MD [facility] Encounters Encounter Date Encounter Type Care Provider Facility Start: 05-29-2025 Non-patient / Non-visit Dr. Yash robledo MD -[facility] Start: 05-29-2025 End: 05-29-[address] Alex Kelley DO Work Phone: -Cardiovascular Services Start: 05-29-2025 End: 05-29-[address] Marian Francisco MD -[facility] Work Phone: Start: 05-29-2025 End: 05-29-2025 ambulatory Marian Francisco Facility:[facility] Start: 04-17-2025 End: 04-17-[address] Marian Francisco MD -[place] [facility] Work Phone: Start: 04-17-2025 End: 04-17-[address] Alex Kelley DO Work Phone: [facility] Work Phone: Start: 02-27-2025 End: 02-27-[address] Emery Crenshaw DO -[facility] Work Phone: Start: 02-27-2025 End: 02-27-[address] Alex Kelley DO Work Phone: [facility] Work Phone: Start: 02-27-2025 End: 02-27-2025 ambulatory Emery Connors Facility:[facility] Start: 01-22-2025 ambulatory Alex Kelley Facility:[facility] Start: 10-17-2024 End: 10-17-2024 ambulatory Alex Kelley Facility:[facility] Start: 07-17-2024 End: 07-17-2024 ambulatory Alex Kelley Facility:[facility] Start: 01-17-2024 End: 01-18-[address] ALEX KELLEY DO Facility:[facility] Start: 01-17-2024 End: 01-17-[address] ALEX KELLEY DO [facility] Start: 12-12-2023 Non-patient / Non-visit Dr. Carla Kelley Work Phone: [facility] [facility] Work Phone: Start: 12-11-2023 Non-patient / Non-visit Dr. Carla Kelley Work Phone: [facility] [facility] Work Phone: Start: 12-10-2023 End: 12-12-2023 Evaluation and management of inpatient [facility]-Progressive Care Unit Work Phone: Start: 05-30-2023 End: 05-30-[address] Alex Kelley Work Phone: [facility] Work Phone: Start: 05-30-2023 End: 05-30-[address] Alex Kelley Work Phone: [facility]-Physical Therapy Work Phone: Start: 04-20-2023 End: 04-21-[address] ALEX KELLEY DO Facility:[facility] Start: 04-20-2023 End: 04-20-[address] ALEX KELLEY DO [facility] Start: 03-16-2023 End: 03-17-[address] ALEX KELLEY DO Facility:[facility] Start: 02-23-2023 End: 02-28-[address] ALEX KELLEY DO Facility:[facility] Start: 02-23-2023 End: 02-27-[address] ALEX KELLEY DO [facility] Start: 02-23-2023 End: 02-23-[address] ALEX KELLEY DO [facility] Start: 02-09-2023 Non-patient / Non-visit [employer] Leyla Walsh [employer] Work Phone: [facility] Start: 02-09-2023 End: 02-09-2023 ambulatory [employer] Ute Walsh [employer] Work Phone: [facility] Work Phone: Start: 02-09-2023 End: 02-09-2023 Patient encounter procedure [employer] Ute Walsh [employer] Work Phone: [facility]-Cardiovascular Services Start: 01-26-2023 End: 01-26-2023 Patient encounter procedure [employer] Ute Walsh [employer] Work Phone: [facility] Vascular Surgery Start: 01-26-2023 End: 01-26-2023 ambulatory [employer] Ute Walsh [employer] Work Phone: [facility] Work Phone: Start: 01-26-2023 End: 01-26-2023 Patient encounter procedure [employer] Ute Walsh [employer] Work Phone: [facility]-Outpatient Bone Densitometry Start: 01-14-2023 Non-patient / Non-visit [employer] Leyla Walsh [employer] [facility] Start: 01-13-2023 Non-patient / Non-visit [employer] Leyla Walsh [employer] Work Phone: [facility] Start: 01-13-2023 End: 01-14-2023 Evaluation and management of inpatient [employer] Ute Walsh [employer] Work Phone: [facility]-Progressive Care Unit Start: 01-12-2023 End: 01-12-2023 Patient encounter procedure [employer] Ute Walsh [employer] Work Phone: [facility] Start: 07-01-2022 End: 07-01-2022 Patient encounter procedure THEO [facility] [employer] [facility] Start: 02-03-2022 Phys/qhp telephone evaluation 21-30 min No PCP None MO-[id number]-Sej well [facility] Work Phone: Start: 09-11-2021 End: 09-11-2021 Patient encounter procedure THEO [place] [employer] [facility] Start: 08-11-2021 End: 08-12-2021 Evaluation and management of inpatient NORMA VICENTE MD [facility] Start: 08-13-2020 End: 08-13-2020 Telephone encounter Sam ([employer]) Juan A Work Phone: [facility] Comment on above: Results Start: 07-08-2020 End: 07-08-2020 Telephone encounter Sam ([employer]) Juan A Work Phone: [facility] [place] Comment on above: Results Start: 07-04-2020 End: 07-04-2020 Patient encounter procedure Sam ([employer]) Juan A Work Phone: [facility] Start: 07-04-2020 Results Only Sam ([employer] Specialist Cn s) Juan A Work Phone: [facility] [place] Start: 07-04-2020 End: 07-04-2020 Subsequent hospital visit by physician [facility] Work Phone: Cardiology Lab Comment on above: Permanent atrial fib rillation (HCC) [I48.21] Start: 06-17-2020 End: 06-17-2020 Patient encounter procedure [facility] Provider [facility] Start: 06-17-2020 Results Only [facility] Provider [facility] Department Procedures Date Procedure Procedure Detail Performing Clinician Start: 12-11-2023 Streptococcus pneumo niae Antigen (M Dr. Alex Kelley Work Phone: Start: 12-10-2023 SARS-CoV-2, Influenz a & RSV (PCR) Start: 12-10-2023 Plain chest X-ray Start: 01-26-2023 Dual energy X-ray absorptiometry [employer] Ute Walsh [employer] Work Phone: Start: 01-13-2023 MRI of brain without contrast [employer] Ute Walsh [employer] Work Phone: Start: 01-13-2023 CT angiography of he ad and neck [employer] Ute Walsh [employer] Work Phone: Start: 01-13-2023 CT of head without contrast [employer] Ute Walsh [employer] Work Phone: Start: 01-13-2023 Plain chest X-ray [employer] Ute Walsh [employer] Work Phone: Start: 08-11-2021 Transcatheter aortic valve replacement NORMA VICENTE MD Start: 07-04-2020 Echo tthrc r-t 2d w/ wom-mode compl spec&colr d Sam ([employer]) Juan A Work Phone: Start: 07-04-2020 LVEF ECHO Sam (Apr n [employer]) Juan A Work Phone: Start: 07-04-2020 Xtrnl pt activated e cg record monitor 30 days Sam ([employer]) Juan A Work Phone: Start: 06-17-2020 CARDIAC [facility] Provid er Start: 02-01-2018 Echocardiography NORMA VICENTE MD Start: 03-07-2017 Left inguinal hernia (disorder) NORMA VICENTE MD Start: 02-13-2004 Colonoscopy NORMA KAPLAN MD Comment on above: Refused further Basal cell carcinoma of forehead (disorder) NORMA VICENTE MD Carotid endarterectomy TACHO VICENTE MD Plan of Treatment Date Care Activity Detail Author Start: 12-12-2023 Patient discharge [facility] Start: 12-11-2023 Care planning and problem solving actions [facility] Start: 12-11-2023 Care regimes management [facility] Start: 12-11-2023 Notification of physician [facility] Start: 12-10-2023 Following clinical pathway protocol [facility] Start: 12-10-2023 Transfusion of blood product [facility] Start: 12-10-2023 Assessment of risk of venous thromboembolism [facility] Start: 12-10-2023 Fall prevention [facility] Start: 12-10-2023 Inhalation therapy procedure [facility] Start: 12-10-2023 Insertion of catheter into peripheral vein [facility] Start: 12-10-2023 Introduction of urinary catheter [facility] Start: 12-10-2023 Measuring intake and output [facility] Start: 12-10-2023 Oxygen therapy [facility] Start: 12-10-2023 Providing care according to standard [facility] Start: 12-10-2023 Provision of activity privileges [facility] Start: 12-10-2023 Referral to occupational therapist [facility] Start: 12-10-2023 Referral to service [facility] Start: 12-10-2023 [facility] Start: 12-10-2023 Verification routine [facility] Start: 12-10-2023 End: 12-10-2023 Hospital admission, emergency, from emergency room, medical nature [facility] Start: 12-10-2023 Legionella pneumophila Ag [Presence] in Urine [facility] Start: 12-10-2023 Streptococcus pneumoniae antigen assay [facility] Start: 12-10-2023 Admission procedure [facility] Start: 12-10-2023 Brain natriuretic peptide measurement [facility] Start: 12-10-2023 [facility] Start: 12-10-2023 Patient referral to dietitian [facility] Start: 01-26-2023 Patient referral [facility] Work Phone: Start: 01-14-2023 Patient discharge [facility] Start: 01-13-2023 Following clinical pathway protocol [facility] Start: 01-13-2023 Assessment of risk of venous thromboembolism [facility] Start: 01-13-2023 Cardiac monitoring [facility] Start: 01-13-2023 Catheterization of vein [facility] Start: 01-13-2023 Continuous pulse oximetry [facility] Start: 01-13-2023 Elevation of head of bed [facility] Start: 01-13-2023 Exercises [facility] Start: 01-13-2023 Implementation of planned interventions [facility] Start: 01-13-2023 Incentive spirometry [facility] Start: 01-13-2023 Inhalation therapy procedure [facility] Start: 01-13-2023 Insertion of catheter into peripheral vein [facility] Start: 01-13-2023 Measuring intake and output [facility] Start: 01-13-2023 Notification of physician [facility] Start: 01-13-2023 Oxygen therapy [facility] Start: 01-13-2023 Providing care according to standard [facility] Start: 01-13-2023 Provision of activity privileges [facility] Start: 01-13-2023 Referral to occupational therapist [facility] Start: 01-13-2023 Referral to service [facility] Start: 01-13-2023 Tobacco use cessation education [facility] Start: 01-13-2023 [facility] Start: 01-13-2023 Admission procedure [facility] Start: 07-01-2020 Influenza vaccination INFLUENZA (#1) [facility] Start: 2002 ADVANCE DIRECTIVE DISCUSSION ADVANCE DIRECTIVE DISCUSSION [facility] Start: 2002 PNEUMOVAX AGE 65 AND OVER WITH 5YR LOOKBACK (#1) PNEUMOVAX AGE 65 AND OVER WITH 5YR LOOKBACK (#1) [facility] Start: 1987 SHINGRIX VACCINE (1 of 2) SHINGRIX VACCINE (1 of 2) [facility] Start: 1982 DIABETES SCREEN DIABETES SCREEN [facility] Start: 1956 Urine microalbumin profile DTAP,TDAP,TD (1 - Tdap) [facility] Hemoglobin A1c/Hemoglobin.total in Blood [facility] Patient referral [facility] Work Phone: [place] Carotid arteries [facility] Carotid arteries [facility] Immunizations Immunization Date Immunization Notes Care Provider [facility] 07-17-2024 influenza, injectabl e, quadrivalent, preservative free Dr. Alex Kelley DO Work Phone: [facility] 08-11-2023 influenza virus vacc ine, unspecified formulation DR ALEX KELLEY DO [facility] Comment on above: Result Comment: [facility]. IM left deltoid 01-12-2023 Covid (Pfizer) CLOTHING CUTTER-C Ute monreal NP Work Phone: [facility] 01-12-2023 COVID-19, mRNA, LNP- S, bivalent booster, PF, 30 mcg/0.3 mL dose; Translations: [Pfizer-BioNTech COVID-19 (12y+) Bivalent Booster Vaccine PF] DR ALEX KELLEY DO [facility] Comment on above: Result Comment: Admi nistered Pfizer COVID 0.3 mL booster IM in LD. pt tolerated well with no adverse effects. [facility] 01-12-2023 SARSCoV2 mRNA(fkftzowalmi84a+)biv al vac 3; Translations: [Pfizer-BioNTech COVID-19 (12y+) Bivalent Booster Vaccine PF] DR ALEX KELLEY DO [facility] Comment on above: Result Comment: Admi nistered Pfizer COVID 0.3 mL booster IM in LD. pt tolerated well with no adverse effects. [facility] 08-09-2022 influenza virus vacc ine, unspecified formulation DR ALEX KELLEY DO [facility] 09-30-2021 SARS-CoV-2 mRNA (tozinameran) vaccine THEO CHEEK [facility] 07-25-2021 influenza virus vacc ine, unspecified formulation NORMA VICENTE MD [facility] 02-10-2021 SARS-CoV-2 (COVID-19 ) mRNA BNT-162b2 vax NORMA VICENTE MD [facility] Comment on above: Result Comment: lobito tomas tianna 01-20-2021 SARS-CoV-2 (COVID-19 ) mRNA BNT-162b2 vax NORMA VICENTE MD [facility] 12-30-2020 zoster vaccine recombinant NORMA VICENTE MD [facility] 10-10-2020 zoster vaccine recombinant NORMA VICENTE MD [facility] 08-14-2020 influenza virus vacc ine, unspecified formulation NORMA VICENTE MD [facility] Comment on above: Result Comment: [facility] 12-05-2019 pneumococcal polysaccharide vaccine, 23 valent; Translations: [Pneumovax 23] NORMA VICENTE MD [facility] 08-06-2019 influenza virus vacc ine, unspecified formulation NORMA VICENTE MD [facility] 11-18-2017 pneumococcal conjuga te vaccine, 13 valent NORMA VICENTE MD [facility] 11-18-2017 tetanus toxoid, redu codi diphtheria toxoid, and acellular pertussis vaccine, adsorbed NORMA VICENTE MD [facility] 07-11-2017 influenza virus vacc ine, unspecified formulation NORMA VICENTE MD [facility] 07-29-2016 influenza virus vacc ine, unspecified formulation NORMA VICENTE MD [facility] 07-29-2015 influenza virus vacc ine, unspecified formulation NORMA VICENTE MD [facility] 08-06-2014 influenza virus vacc ine, unspecified formulation NORMA VICENTE MD [facility] Payers Date Payer Category Payer Self-pay [id number] 2023 Medicare [id number] 2017 Medicare HUMANA MEDICARE HUMANA MEDICARE PPO [id number] 2017-Present PPO [id number] 1935 Unknown [id number] 1935 Unknown [id number] [id number] 1935 Unknown [id number] [id number] 1935 Unknown [id number] 1935 Unknown [id number] Unknown HUMANA GOLD CHOICE Medicare MEDICARE PART A B [id number] Unknown [id number] Unknown [id number] Unknown [id number] Unknown [id number] Unknown [id number] Unknown [id number] [id number] Unknown [id number] Unknown [id number] [id number] Unknown [id number] Unknown [id number] Social History Date Type Detail Facility Start: 06-09-2020 End: 07-17-2024 Tobacco smoking status NHIS Never smoker [facility] Comment on above: No smoke exposure Start: 06-09-2020 Tobacco use and exposure Never used [facility] Start: 06-09-2020 Alcohol intake Ex-drinker (finding) [facility] Start: 10-29-2019 History SDOH Alcohol Frequency 3 [facility] Start: 10-29-2019 History SDOH Alcohol Std Drinks 1 [facility] Sex Assigned At Not on file [facility] Exposure to SARS-CoV -2 (event) Not sure [facility] Start: 1935 Sex Assigned At Male A [facility] Start: 01-26-2023 End: 12-10-2023 Tobacco smoking status NHIS Unknown if ever smoked [facility] Start: 01-14-2023 Non-smoker [facility] Goals Date Patient Goal Desired Activity /State Functional Status Date Assessment Result Facility 12-12-2023 Functional status Ambulates;Chair [facility] Work Phone: 01-14-2023 Functional status Ambulates [facility] Work Phone: Mental Status Date Assessment Result Facility 12-12-2023 Cognitive function Voice/Name [facility] Work Phone: 12-10-2023 Cognitive function Level Of Cons ciousness Awake;Alert;Appropriate;Follow s Commands [facility] Work Phone: 01-14-2023 Cognitive function Voice/Name [facility] Work Phone: Clinical Notes 07-11-2021 to 04-17-2025 Note Date & Type Note Facility 04-17-2025 Progress note [facility] 04-17-2025 Progress note Note Date/Time April 17, 2025 1:05pm [facility] [address] [place], [place] [address] OFFICE VISIT Date of Service: 04/17/25 MR#: [id number] Acct: [id number] Name: SHREE MARCUM Rep #: [id number] : 1935 Provider: Dr. Rob Francisco MD Age/Sex: 89/M Location[place] [facility] Status: Signed HPI HPI History of Present Illness Details: This gentleman with history of permanent atrial fibrillation, dyslipidemia, aortic stenosis status post TAVR and hypertension is here for follow-up visit. Denies any complaints today. No chest pains. No shortness of breath. No palpitations. No orthopnea or PND. No ankle edema. Tolerating rivaroxaban well and denies any abnormal bleeding. Intake Vital Signs 10/17/24 14:56 02/27/25 13:38 04/17/25 12:47 Height 5 ft 9 in 5 ft 9 in 5 ft 9 in Weight: 154 lb 155 lb 153 lb BMI 22.7 22.8 22.6 BP 139/83 H 126/78 H 111/78 Blood Pressure Location Lt brachial Lt brachial Lt brachial Position Sitting Sitting Sitting Respiration 18 18 20 H Pulse 67 82 70 Pulse Source NIBP Monitor Monitor Temp 96.8 F L Pulse Oximetry (%) 98 Oxygen Delivery Method room air Intake Visit Reasons: 6-8 M FU Exterminator Required: No Accompanied by: Daughter Allergies terazosin Allergy (Verified 04/17/25 12:53) lower blood pressure Medications ?Medication ?Instructions ?Recorded ?Confirmed ?Type rivaroxaban 20 mg tablet (Xarelto) 20 mg PO DAILY #90 tabs 11/05/24 04/17/25 Rx metoprolol tartrate 25 mg tablet 12.5 mg (1/2 x 25 mg) PO BID heart 02/27/25 04/17/25 Rx 90 days #90 tabs pantoprazole 40 mg tablet,delayed 40 mg PO DAILY #90 t abs 02/27/25 04/17/25 Rx release simvastatin 40 mg tablet 40 mg PO QPM cholesterol #90 tabs 02/27/25 04/17/25 Rx amlodipine 5 mg-benazepril 20 mg 1 cap PO DAILY #90 ca ps 04/02/25 04/17/25 Rx capsule Have you fallen in the past year?: No PFSH Medical History (Updated 04/17/25 @ 13:[address] Marian Francisco MD) Carotid artery disease COVID (~12/2023) Pneumonia GI bleed Anemia CVA (cerebral vascular accident) History of mitral valve disorder JUSTIN (obstructive sleep apnea) A-fib Syncope and collapse Atrial fibrillation, permanent Primary malignant neoplasm of skin of scalp Carotid stenosis CVA (cerebral vascular accident) Abnormal CT scan of head Inability to walk Immunization reaction Stiffness due to immobility CKD (chronic kidney disease), stage III Vertebral artery stenosis GERD (gastroesophageal reflux disease) Osteoporosis Atrial fibrillation Hypertension Santillan's esophagus with dysplasia Wears dentures Wears glasses Uses wheelchair Anemia High cholesterol Stroke/cerebrovascular accident History of GI bleed Non-smoker History of transcatheter aortic valve replacement (TAVR) Vomiting Orthostatic hypotension Weakness Abnormal finding on imaging of liver Myocardial infarction Essential hypertension Nonrheumatic aortic (valve) stenosis BPH (benign prostatic hyperplasia) Hyperlipidemia Transient cerebral ischemia Paroxysmal atrial fibrillation Primary malignant neoplasm of skin of scalp Surgical History S/P TAVR (transcatheter aortic valve replacement) S/P TAVR (transcatheter aortic valve replacement) History of cardiac catheterization History of endarterectomy History of hernia repair Family History Mother Hypertension Father Hypertension CVA (cerebral vascular accident) Sister Hypertension Brother Cancer Heart disease CVA (cerebral vascular accident) Dementia Social History adopted: No household members: significant other number of children: 2 current occupational status: retired pets and animals: No Smoking Status: Never smoker alcohol intake: current alcohol intake frequency: holidays/special occasions only details: occasional substance use type: does not use caffeine: Yes (3-4) Type: tea frequency: does not exercise do you feel safe at home: Yes ROS Const Const: Negative for fatigue or weakness Eyes Eyes: Negative for change in vision ENT ENT: Negative for dizziness or balance problems Cardio Chest Pain: No Palpitations: No Edema: None Resp Respiratory: Negative for SOB with activity, SOB at rest or SOB orthopneaundefinedSOB lying down GI GI: Negative nausea or heartburn Musc Musc: Negative for balance problems Neuro Neuro: Negative for dizziness, lightheadedness, near syncope, syncope or weakness Endo Endo: Negative for fatigue Cardiology Exam Const Appearance: comfortable and no acute distress Nutritional Appearance: well nourished Neck Neck: no JVD Carotids: Negative bruit Chest Auscultation: Bilateral: Clear to Auscultation Cardio Rhythm: irregularly irregular Heart sounds: S1 normal and S2 normal Neuro General: patient alert, patient awake and patient oriented x3 Extremities Lower Extremity Edema: None: Bilateral Supplemental Info Supplemental Information Labs: LDL Cholesterol 65 mg/dL (0-130) HDL Cholesterol 41 mg/dL (40-) Cholesterol 139 mg/dL (<=200) Triglycerides 197 mg/dL (-199) Diagnostics: Electrocardiogram Echocardiogram Chest X-Ray Carotid Duplex Pulmonary: No Data to Display Past Visits: Cardiology Visit 04/17/25 Assessment and Plan Assessment and Plan (1) Atrial fibrillation, permanent: Status: Chronic Plan: Continue rivaroxaban. Ventricular rate controlled with low-dose metoprolol. (2) S/P TAVR (transcatheter aortic valve replacement): Status: Chronic Plan: Repeat echocardiogram. Periodic echo and clinical surveillance. (3) Hypertension: Status: Chronic Qualifiers: Hypertension type: primary hypertension Qualified Code(s): I10 - Essential (primary) hypertension Plan: Amlodipine benazepril and metoprolol. (4) Dyslipidemia: Status: Chronic Plan: On simvastatin. (5) History of CVA (cerebrovascular accident): Status: Chronic Plan: Rivaroxaban for anticoagulation for atrial fibrillation. (6) Carotid artery disease: Status: Chronic Qualifiers: Carotid artery disease type: stenosis Laterality: bilateral Qualified Code(s): I65.23 - Occlusion and stenosis of bilateral carotid arteries Plan: History of carotid endarterectomy. Repeat carotid Doppler. Plan Details Follow Up: 6 Months Coding Level of Care Code Off vis,est,level 4 Diagnoses Atrial fibrillation, permanent I48.2 S/P TAVR (transcatheter aortic valve replacement) Z95.2 Primary hypertension I10 Hypertension type: primary hypertension Dyslipidemia E78.5 History of CVA (cerebrovascular accident) Z86.73 Bilateral carotid artery stenosis I65.23 Carotid artery disease type: stenosis Laterality: bilateral Coding Level of Care Code Off vis,est,level 4 Diagnoses Atrial fibrillation, permanent I48.2 S/P TAVR (transcatheter aortic valve replacement) Z95.2 Primary hypertension I10 Hypertension type: primary hypertension Dyslipidemia E78.5 History of CVA (cerebrovascular accident) Z86.73 Bilateral carotid artery stenosis I65.23 Carotid artery disease type: stenosis Laterality: bilateral Clinical Quality Measures Falls Risk Screening/Assistive Devices Have you fallen in the past year?: No 04/17/25 2716 <Electronically signed by Marian Francisco MD> Date _ Marian Francisco MD Cosigner Signature: Date (if applicable) CC: Dr. Emery Connors, DO ~ [facility] Work Phone: 1(830) 700-747904-30-2025 Evaluation note* Diagnosis Onset Date Resolution Status Admit Date Carotid stenosis acute February 272024 1:27pm Atrial fibrillation, permanent chron ic February 27, 2025 1:27pm History of CVA (cerebrovascu lar accident) chronic February 27, 2025 1:27pm Hypertension chronic February 27, 2025 1:27pm [facility] Work Phone: 1(397) 393-761504-30-2025 Evaluation note* Diagnosis Onset Date Resolution Status Admit Date Carotid stenosis acute February 272024 1:27pm Atrial fibrillation, permanent chron ic February 27, 2025 1:27pm History of CVA (cerebrovascu lar accident) chronic February 27, 2025 1:27pm Hypertension chronic February 27, 2025 1:27pm Atrial fibrillation, permanent chron ic April 17, 2025 12:39pm Carotid artery disease chronic Ju 2024 12:39pm Dyslipidemia chronic April 17, 2 025 12:39pm History of CVA (cerebrovascu lar accident) chronic April 17, 2025 12:39pm Hypertension chronic April 17, 025 12:39pm S/P TAVR (transcatheter aort ic valve replacement) chronic April 17 12:39pm [facility] Work Phone: 1(526) 960-384802-12-2024 Discharge summary Author Yash Moreno [facility] December 12, 2023 3:40pm Note Date/Time December 12, 2023 3:37pm [facility] Medical Records Department [address] [place] [address] Discharge Summary 12/12/23 1534 MR#: [id number] Acct: [id number] Name: SHREE MARCUM Rep #:[id number] : 1935 88 From: Yash Moreno DO PCP: Dr. Alex Kelley DO Status:ADM IN Location: [place] [address] Providers Date of Admission: 12/10/23 Primary Care Physician: Dr. Alex Kleley DO Reason For Visit: COVID, ADULT FTT Diagnosis Discharge Diagnosis (1) COVID: Status: Acute Code(s): U07.1 - COVID-19 Plan Acute Debility, Adult FTT * secondary to Acute Viral Syndrome, COVID-19 * PT OT * Pt declining SNF and C. COVID 19 * Day 0 8, quarantine through the , then wear a mask from the - * no treatment indicated. Chronic conditions: * Prediabetes: Initial concern for possible stress response, admission glucose 177, hemoglobin A1c 5.9%, consistent with prediabetes, given steroid usage will transition to ADA diet with Accu-Cheks with insulin sliding scale. Will need repeat outpatient A1c testing following implementation of improved diet and lifestyle changes. * PAF with RVR, improved: Related to #1, onset with dry heaves in the ED and had not taken his BB therapy, cardizem 20 mg x 1 being administered in the ED, significant improvement, continue patient home metoprolol regimen, 12/11/2023 no further evidence of tachycardia, will transition to MS telemetry status as noted above, continue home Xarelto regimen. 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 Encourage continued outpatient follow-up as previously arranged with his cardiology services. * History CVA: Patient with history of CVA with vertebral artery stenosis, continue patient home Xarelto regimen, statin, hypertensive regimen as noted, investigating hyperglycemia as noted. PT/OT/case management consulted for discharge planning. * Carotid artery disease: Status post left CEA remotely, will continue Xarelto, statin, hypertensive regimen as BP allows. * Hypertension: Continue home regimen including metoprolol, clarifying but also appears to be on amlodipine and possibly benazepril, will hold benazepril component given renal insufficiency, PRN hydralazine. * Hyperlipidemia: We will continue patient on statin therapy. 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 * BPH with unclear obstructive process: Per most recent list noted not on regimen, encourage continued outpatient follow-up as needed. DVT prophylaxis: Continue patient home Xarelto regimen. CODE status: Patient HCPJAK is his daughter who is present and living will is currently in place. DNR-CCA, no intubation, no pressor therapy, no central line.He is not interested in further COVID vaccination. Medications at Discharge Home Medications simvastatin 40 mg tablet 40 mg PO QPM cholesterol 12/19/17 pantoprazole 40 mg tablet,delayed release 40 mg PO DAILY #30 tabs 12/27/22 metoprolol tartrate 25 mg tablet 12.5 mg PO BID heart 07/11/23 amlodipine 5 mg-benazepril 20 mg capsule 1 cap PO DAILY hypertension 12/10/23 rivaroxaban 20 mg tablet (Xarelto) 20 mg PO DAILY anti platelet 12/10/23 Hospital Course Operations None Procedures None Summary of Care Provided Minutes Spent on Discharge: 32 Weight / BMI Weight Weight: 72.6 kg Body Mass Index (BMI) 23.6 ABG / Lab / Microbiology Data 12/11/23 06:57 12/11/23 06:57 Laboratory: Laboratory Results - last 24 hr 12/11/23 16:46: POC Glucose 148 H 12/11/23 22:27: POC Glucose 193 H 12/12/23 06:24: POC Glucose 114 H 12/12/23 12:26: POC Glucose 209 H Microbiology: Microbiology 12/11/23 15:55 Urine, Clean Catch Streptococcus pneumoniae Antigen (M - Final 12/11/23 15:55 Urine, Clean Catch Legionella Antigen - Final 12/10/23 08:24 Mucosa - Nose SARS-CoV-2, Influenza & RSV (PCR) - Final SARS-CoV-2 (COVID 19) D/C Instructions Discharge Diet: No restrictions Meaningful Use Info Meaningful Use Diagnoses (Choose all that apply): None applicable Discharge Plan Admission Admit Date/Time: 12/10/23 10:51 Primary Reason for Your Visit: COVID 19 Attending Provider: Yash Moreno Primary Care Provider: Alex Kelley Consulting Providers: Alisa Duran Instructions Additional Instructions / Restrictions: You have COVID-19. Please quarantine at home through then from the 14 tothe 18, wear a mask when you go out. Discharge Orders/Prescriptions Prescriptions: Continued simvastatin 40 mg tablet 40 mg PO QPM Xarelto 20 mg tablet 20 mg PO DAILY amlodipine-benazepril 5-20 mg capsule 1 cap PO DAILY Patient Comments: takes at supper pantoprazole 40 mg tablet,delayed release (DR/EC) 40 mg PO DAILY Qty: 30 5RF metoprolol tartrate 25 mg tablet 12.5 mg PO BID Referrals / Follow Up: Alex Kelley DO [Primary Care Provider] - Within 2 Weeks Disposition Disposition (needs filled in before D/C Order can be placed): Home, Self Care Charges/Coding Visit Charges Inpatient E&M: 89968 Disch Hosp >30min 12/12/23 1540 <Electronically signed by Yash Moreno DO> Cosigner Signature (if applicable): CC: Dr. Yash Moreno DO; Dr. Alex Kelley DO~ Signed [facility] Work Phone: 1(407) 444-236002-12-2024 Progress note Author Yash Moreno [facility] December 12, 2023 3:34pm Note Date/Time December 12, 2023 9:59am [facility] Medical Records Department [address] [place] [address] Progress Note - Hospitalist 12/12/23 0956 MR#: [id number] Acct: [id number] Name: SHREE MARCUM Rep #:[id number] : 1935 88 From: Yash Moreno DO PCP: Dr. Alex Kelley DO Status:ADM IN Location: [place] [address] Reason for Visit Reason for Visit: Diagnoses COVID-19 (12/10/23) Subjective Subjective Feels well. Objective Data Objective Data Vital Signs: Vital Signs Temp Pulse Resp BP Pulse Ox O2 Del Method 35.5 C L 78 18 140/65 H 96 Room Air 12/12/23 09:21 12/12/23 09:21 12/12/23 09:21 12/12/23 09:21 12/12/23 09:21 12/12/23 09:27 Oxygen Delivery Method Room Air Weight: 72.6 kg Body Mass Index (BMI) 23.6 Intake & Output: Intake and Output for Last 24 Hours 12/10/23 12/11/23 12/12/23 23:59 23:59 23:59 Intake Total 1400 / 1400 1640 / 1640 Output Total 0 / 0 750 / 750 200 / 200 Balance 1400 / 1400 890 / 890 -200 / -200 Lab / Micro Data 12/11/23 06:57 12/11/23 06:57 Labs: Laboratory Results - last 24 hr 12/11/23 11:53: POC Glucose 191 H 12/11/23 16:46: POC Glucose 148 H 12/11/23 22:27: POC Glucose 193 H 12/12/23 06:24: POC Glucose 114 H Micro: Microbiology 12/11/23 15:55 Urine, Clean Catch Streptococcus pneumoniae Antigen (M - Final 12/11/23 15:55 Urine, Clean Catch Legionella Antigen - Final 12/10/23 08:24 Mucosa - Nose SARS-CoV-2, Influenza & RSV (PCR) - Final SARS-CoV-2 (COVID 19) Rhythm Strip Rhythm Strip: A-fib Rate: 123 Ectopy: PVC(s) Physical Exam Const alert and no apparent distress HEENT head/scalp atraumatic Resp normal respiratory effort, no retractions, no use of accessory muscles and clearto auscultation bilaterally Cardio regular rate, regular rhythm, S1 normal heart sound and S2 normal heart sound GI normal to inspection, nondistended, normoactive bowel sounds, soft to palpation,non-tender and non-distended Assessment & Plan Assessment/Plan (1) COVID: PLAN: Plan Acute Debility, Adult FTT * secondary to Acute Viral Syndrome, COVID-19 * PT OT * Pt declining SNF and C. Chronic conditions: * Prediabetes: Initial concern for possible stress response, admission glucose 177, hemoglobin A1c 5.9%, consistent with prediabetes, given steroid usage will transition to ADA diet with Accu-Cheks with insulin sliding scale. Will need repeat outpatient A1c testing following implementation of improved diet and lifestyle changes. * PAF with RVR, improved: Related to #1, onset with dry heaves in the ED and had not taken his BB therapy, cardizem 20 mg x 1 being administered in the ED, significant improvement, continue patient home metoprolol regimen, 12/11/2023 no further evidence of tachycardia, will transition to MS telemetry status as noted above, continue home Xarelto regimen. 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 Encourage continued outpatient follow-up as previously arranged with his cardiology services. * History CVA: Patient with history of CVA with vertebral artery stenosis, continue patient home Xarelto regimen, statin, hypertensive regimen as noted, investigating hyperglycemia as noted. PT/OT/case management consulted for discharge planning. * Carotid artery disease: Status post left CEA remotely, will continue Xarelto, statin, hypertensive regimen as BP allows. * Hypertension: Continue home regimen including metoprolol, clarifying but also appears to be on amlodipine and possibly benazepril, will hold benazepril component given renal insufficiency, PRN hydralazine. * Hyperlipidemia: We will continue patient on statin therapy. 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 * BPH with unclear obstructive process: Per most recent list noted not on regim en, encourage continued outpatient follow-up as needed. DVT prophylaxis: Continue patient home Xarelto regimen. CODE status: Patient LIVE is his daughter who is present and living will is currently in place. DNR-CCA, no intubation, no pressor therapy, no central line.He is not interested in further COVID vaccination. 12/12/23 1534 <Electronically signed by Yash Moreno DO> Cosigner Signature (if applicable): CC: ~ Signed [facility] Work Phone: [phone]) 129-403802-11-2024 Progress note Author Alisa Duran [facility] December 11, 2023 10:18am Note Date/Time December 11, 2023 6:19am [facility] Medical Records Department [address] [place] [id number] Progress Note - Hospitalist 12/11/23 0619 MR#: [id number] Acct: [id number] Name: SHREE MARCUM Rep #:[id number] : 1935 88 From: Alisa Duran MD PCP: Dr. Alex Kelley DO Status:ADM IN Location: [place] [address] Reason for Visit Reason for Visit: Diagnoses COVID-19 (12/10/23) Subjective Subjective Patient with notable improvement from day prior, less coughing fits, heart rate improved with no recurrent RVR. He notes he has not had any dry heaving or any nausea or emesis since. He does note occasional cough but not near as bad as previous. He does still feel weak and fatigued. Pending physical and occupational assessments today. Patient denies fevers, chills, abdominal pain, chest pain. Objective Data Objective Data Vital Signs: Vital Signs Temp Pulse Resp BP Pulse Ox O2 Del Method 98.4 F 73 18 131/89 H 94 Room Air 12/11/23 02:55 12/11/23 02:55 12/11/23 02:55 12/11/23 02:55 12/11/23 02:55 12/11/23 02:55 Oxygen Delivery Method Room Air Weight: 158 lb 8.198 oz Body Mass Index (BMI) 23.3 Intake & Output: Intake and Output for Last 24 Hours 12/09/23 12/10/23 12/11/23 23:59 23:59 23:59 Intake Total 1400 / 1400 1000 / 1000 Output Total 0 / 0 Balance 1400 / 1400 1000 / 1000 Lab / Micro Data 12/11/23 06:57 12/11/23 06:57 Labs: Laboratory Results - last 24 hr 12/10/23 08:24: WBC 15.7 H, RBC 5.44, Hgb 16.4, Hct 49.4, MCV 90.8, MCH 30.1, MCHC 33.2, RDW Std Deviation 45.0 H, RDW Coeff of Lawrence 13.6, Plt Count 142 L, MPV10.0, Immature Gran % (Auto) 0.500, Neut % (Auto) 84.3 H, Lymph % (Auto) 6.1 L, Garfield % (Auto) 8.6, Eos % (Auto) 0.1, Baso % (Auto) 0.4, Absolute Neuts (auto) 13.2 H, Absolute Lymphs (auto) 0.96, Nucleated RBC % 0, ESR 16, D-Dimer Quant (PE/DVT) 0.92 H*, Sodium 141, Potassium 4.0, Chloride 111 H, Carbon Dioxide 24.0, Anion Gap 6, BUN 26 H, Creatinine 1.66 H, Est GFR (MDRD) Af Amer 51 L, EstGFR (MDRD) Non-Af 42 L, BUN/Creatinine Ratio 15.7, Glucose 177 H, Hemoglobin A1c5.9 H, Calcium 9.0, Magnesium 1.9, Ferritin 122, Total Bilirubin 1.70 H, Direct Bilirubin 0.44 H, AST 31, ALT 33, Alkaline Phosphatase 77, Lactate [id number] H, Total Creatine Kinase 102, Troponin I High Sens 10, C-React Prot Ext Range 49.00 H, B-Natriuretic Peptide 128.7 H, Total Protein 6.9, Albumin 3.1 L, Globulin 3.8 12/10/23 10:43: Urine Color Yellow, Urine Clarity Clear, Urine pH 5.0, Ur Specific [place] 1.025, Urine Protein 30 H, Urine Glucose (UA) Normal, Urine Ketones 5 H, Urine Occult Blood 10 H, Urine Nitrite Negative, Urine Bilirubin 1 H, Urine Urobilinogen 1 H, Ur Leukocyte Esterase 25 H, Urine RBC 0-5 SEEN, UrineWBC 0 SEEN, Ur Squamous Epith Cells 0 SEEN, Urine Bacteria 0 SEEN, Urine Mucus 3+ 12/10/23 11:10: Procalcitonin 0.17 H Micro: Microbiology 12/10/23 08:24 Mucosa - Nose SARS-CoV-2, Influenza & RSV (PCR) - Final SARS-CoV-2 (COVID 19) Radiography Diagnostic Testing: Radiology Impression Chest X-Ray 12/10/23 08:01 IMPRESSION: Cardiomegaly. Electronically Signed: Cha Loo MD at 9:35 EST , Rhythm Strip Rhythm Strip: A-fib Rate: 123 Ectopy: PVC(s) Physical Exam Narrative Physical Examination: General: Awake, alert, oriented x 3 and cooperative seated upright in the PCU bed, much more appropriate appearing, notes feeling remarkably improved but still extremely weak, currently rate controlled, no severe coughing fits and no further dry heaves since ED assessment. Skin: Normal color, normal turgor, no icterus, no cyanosis except occasional staged ecchymoses. HEENT: AT/NC, EOMI, PERRLA, improved MMM. Lungs: Diminished, greater bases but improved effort, no evidence of tachypnea, no current rales, rhonchi or wheezing. Heart: Improved, regular rate, regular; no gallop, rub audible. Abdomen: Soft, NTTP, ND, normal BS. Extremities: No cyanosis, clubbing, or edema. Neurological: Patient awake, alert, oriented as noted, cognitive function intact; pupils equally reactive to light and accommodation, cranial nerves grossly normal, moving all 4 extremities, no focal deficits, strength improving,moderately globally decreased. Psychiatric: Affect appears fatigued but improved from day prior, no acute evidence of depressive or anxiety feelings. Assessment & Plan Assessment/Plan (1) COVID: PLAN: Plan The patient is an 88 y/o M w/ PMHx: CKD stage III unclear subtype, HTN, HLD, PAF, BPH, Chronic anemia, GERD w/ Hx GI bleed/Santillan;s esophagus, Valvular Heart Disease s/p TAVR, Orthostatic hypotension, Hx CVA w/ vertebral artery stenosis, Carotid disease s/p CEA who presents to the [facility] ED on 12/10/2023 with history of fever, generalized weakness and malaise starting over the last 24 hours with a nonproductive cough but no specific nausea, emesis, diarrhea livingat home with his girlfriend initially noted started to feel ill on witha fever up to 102 with difficulty in ambulating secondary to his weakness prompting eventual ED evaluation. 1. Acute Debility, Adult FTT secondary to Acute Viral Syndrome, COVID-19: Initially admitted to the PCU given notable issues with PAF w/ RVR as noted secondary to dry heaving and not having taken AM medications, 12/11/2023 significantly improved, will de-escalate to MS/tele status, maintained on COVID precautions, will maintain on oxygen with wean as tolerated to room air, PRN albuterol, HOB, IS parameters, COVID/inflammatory panel obtained upon admission with D-dimer 0.92 near age- adjusted and continued on Xarelto regimen, ferritin 122, hepatic profile with T. bili 1.70, D bili 0.44, AST/ALT 31/33, alk phos 77,troponin high-sensitivity 10, CRP 49, BNP 128.7, procalcitonin 0.17, continued supportive care, judicious hydration given over lung risk, given oxygenation vacillation in the ED with less than 94% witnessed initiated and continued on IVDecadron x 10 doses, deferred remdesivir is not requiring oxygen. PT/OT/CM consulted for discharge planning, given improvement would plan continued assessment with possible discharge 12/12/2023 if appropriate for home with home therapies but will need to be further assessed prior to decision. 2. Acute Renal Insufficiency on Chronic Kidney Disease Stage III, unclear subtype per previous GFR trending through 2021: Admission BUN/Cr 26/1.66, baseline renal function more recently 1.0-1.3, 12/11/2023 BUN/creatinine 25/1.10,improved, continue to trend. 3. Prediabetes: Initial concern for possible stress response, admission [id number], hemoglobin A1c 5.9%, consistent with prediabetes, given steroid usage will transition to ADA diet with Accu-Cheks with insulin sliding scale. Will need repeat outpatient A1c testing following implementation of improved diet and lifestyle changes. 4. PAF with RVR, improved: Related to #1, onset with dry heaves in the ED and had not taken his BB therapy, cardizem 20 mg x 1 being administered in the ED, significant improvement, continue patient home metoprolol regimen, 12/11/2023 no further evidence of tachycardia, will transition to MS telemetry status as notedabove, continue home Xarelto regimen. 5. Valvular heart disease: Status post TAVR 08/11/2021, 01/13/2023 echocardiogram with EF 60%, severely enlarged LA, moderately enlarged RA, trivial MVI, TAVR noted to be well-seated and functioning well with no significant stenosis or regurgitation. Encourage continued outpatient follow-upas previously arranged with his cardiology services. 6. History CVA: Patient with history of CVA with vertebral artery stenosis, continue patient home Xarelto regimen, statin, hypertensive regimen as noted, investigating hyperglycemia as noted. PT/OT/case management consulted for discharge planning. 7. Carotid artery disease: Status post left CEA remotely, will continue Xarelto, statin, hypertensive regimen as BP allows. 8. Hypertension: Continue home regimen including metoprolol, clarifying but also appears to be on amlodipine and possibly benazepril, will hold benazepril component given renal insufficiency, PRN hydralazine. 9. Hyperlipidemia: We will continue patient on statin therapy. 10. GERD with history of GI bleed/Santillan's esophagus: We will continue patienton PPI. 11. BPH with unclear obstructive process: Per most recent list noted not on regimen, encourage continued outpatient follow-up as needed. 12. DVT prophylaxis: Continue patient home Xarelto regimen. 13. CODE status: Patient LIVE is his daughter who is present and living will is currently in place. DNR-CCA, no intubation, no pressor therapy, no central line. He is not interested in further COVID vaccination. Charges/Coding Visit Charges Inpatient E&M: 94878 Subs Hosp L2 12/11/23 1018 <Electronically signed by Alisa Duran MD> Cosigner Signature (if applicable): CC: ~ Signed [facility] Work Phone: [phone]) 946-950502-10-2024 History and physical note Author Alisa Duran [facility] December 10, 2023 12:03pm Note Date/Time December 10, 2023 10:53am [facility] Medical Records Department [address] [place] [address] H&P Exam - Hospitalist 12/10/23 1049 MR#: [id number] Acct: [id number] Name: SHREE MARCUM Rep #:[id number] : 1935 88 From: Alisa Duran MD PCP: Dr. Alex Kelley, DO Status:ADM IN Location: [facility] [place] [id number] HPI - General General Date of Admission: 12/10/23 Date of Service: 12/10/23 Chief Complaint: Fever, fatigue, weakness, debility. HPI Narrative The patient is an 88 y/o M w/ PMHx: CKD stage III unclear subtype, HTN, HLD, PAF, BPH, Chronic anemia, GERD w/ Hx GI bleed/Santillan;s esophagus, Valvular Heart Disease s/p TAVR, Orthostatic hypotension, Hx CVA w/ vertebral artery stenosis, Carotid disease s/p CEA who presents to the [facility] ED on 12/10/2023 with history of fever, generalized weakness and malaise starting over the last 24 hours with a nonproductive cough, notes to have nausea and dry heaving in the EDbut had not prior, myalgia, congestion but no diarrhea, living at home with his girlfriend, initially noted started to feel ill on with a fever up to 102 with difficulty in ambulating secondary to his weakness prompting eventual ED evaluation. Per report his girlfriend does have also similar symptoms. He does report being vaccinated and having had a booster but unsure series or amount. Workup in the ED included T97.7, heart rate 73 although did vacillate upto 125 in the ED, most recently heart rate 104, BP initially 123/89 with most recent repeat 157/82, respiratory rate 16, 95% on room air, CBC with WBC 15.7, hemoglobin 16.4, platelets 142 with left shift, BMP with chloride 111, BUN/creatinine 26/1.66, GFR 42, glucose 177, chest x-ray with cardiomegaly with no acute cardiopulmonary findings otherwise, rapid SARS COVID positive, negativeinfluenza and RSV PCR. In the ED patient ministered IV fluids as well as IV cardizem 20 mg x 1 and Zofran as once patient had onset dry heaves he became tachycardic with RVR. [facility] Medical History Abnormal finding on imaging of liver Anemia Atrial fibrillation Santillan's esophagus with dysplasia BPH (benign prostatic hyperplasia) CKD (chronic kidney disease), stage III Essential hypertension GERD (gastroesophageal reflux disease) High cholesterol History of GI bleed History of transcatheter aortic valve replacement (TAVR) Hyperlipidemia Hypertension Myocardial infarction Non-smoker Nonrheumatic aortic (valve) stenosis Orthostatic hypotension Osteoporosis Paroxysmal atrial fibrillation Primary malignant neoplasm of skin of scalp Stroke/cerebrovascular accident Transient cerebral ischemia Uses wheelchair Vertebral artery stenosis Vomiting Weakness Wears dentures Wears glasses Home Medications simvastatin 40 mg tablet 40 mg PO QPM 12/19/17 [History Last Taken Unknown] pantoprazole 40 mg tablet,delayed release 40 mg PO DAILY #30 tabs 12/27/22 [Rx Last Taken Unknown] metoprolol tartrate 25 mg tablet 12.5 mg PO BID 07/11/23 [History Last Taken Unknown] rivaroxaban 20 mg tablet (Xarelto) 20 mg PO DAILY 12/10/23 [History Last Taken Unknown] Allergy/AdvReac Type Severity Reaction Status Date / Time terazosin Allergy lower Verified 07/11/23 11:29 blood pressure Family History Mother Hypertension Father Hypertension CVA (cerebral vascular accident) Sister Hypertension Brother Cancer Heart disease CVA (cerebral vascular accident) Dementia Surgical History History of cardiac catheterization History of endarterectomy History of hernia repair S/P TAVR (transcatheter aortic valve replacement) Social History (Updated 12/10/23 @ 12:[address] Alisa Duran MD) household members: significant other Smoking Status: Never smoker alcohol intake: current details: occasional substance use type: does not use caffeine: No ROS ROS Narrative Admission Review of Systems: CONSTITUTIONAL: No weight loss, + fever, chills, weakness or fatigue. HEENT: + Headache/congestion. Eyes: No visual loss, blurred vision, double vision or yellow sclerae. Ears, Nose, Throat: No hearing loss, sneezing. SKIN: No rash or itching, lesions, wounds. CARDIOVASCULAR: No chest pain, chest pressure or chest discomfort, palpitations,edema, orthopnea, syncopal events. RESPIRATORY: + shortness of breath, cough, No marked sputum, wheezing, hemoptysis. GASTROINTESTINAL: + anorexia, nausea, vomiting. No diarrhea, abdominal pain, melena, BRBPR. GENITOURINARY: No dysuria, frequency, urgency or retention. NEUROLOGICAL: + headache, No dizziness, syncope, paralysis, ataxia, numbness or tingling in the extremities, focal weakness, change in bowel or bladder control,seizure. MUSCULOSKELETAL: + muscle, back pain, joint pain or stiffness. HEMATOLOGIC: No anemia. Easy bleeding and bruising. LYMPHATICS: No enlarged nodes. No history of splenectomy. PSYCHIATRIC: No history of depression or anxiety. ENDOCRINOLOGIC: + reports of sweating, cold or heat intolerance. No polyuria or polydipsia. ALLERGIES: No history of asthma, hives, eczema or rhinitis. Vital Signs Vital Signs Vital Signs: 12/10/23 07:47 12/10/23 07:46 12/10/23 09:05 Temperature 97.7 F L Temperature Source Temporal Pulse Rate 73 92 Respiratory Rate 16 21 H Respiratory Effort Normal Non-Labored Respiratory Pattern Normal Blood Pressure 123/89 H Blood Pressure Mean 100 Pulse Ox 95 Oxygen Delivery Method Room Air 12/10/23 09:10 12/10/23 09:20 12/10/23 09:25 Temperature Temperature Source Pulse Rate 91 93 Respiratory Rate 19 H 21 H Respiratory Effort Respiratory Pattern Blood Pressure 146/76 H Blood Pressure Mean 95 Pulse Ox Oxygen Delivery Method 12/10/23 09:30 12/10/23 09:40 12/10/23 09:45 Temperature Temperature Source Pulse Rate 101 H 93 92 Respiratory Rate 16 24 H 23 H Respiratory Effort Respiratory Pattern Blood Pressure 128/76 H 131/87 H Blood Pressure Mean 92 101 Pulse Ox Oxygen Delivery Method 12/10/23 09:50 12/10/23 10:00 12/10/23 10:49 Temperature Temperature Source Pulse Rate 125 H 104 H 148 H Respiratory Rate 24 H 25 H 22 H Respiratory Effort Respiratory Pattern Blood Pressure 157/82 H 167/87 H Blood Pressure Mean 105 113 Pulse Ox Oxygen Delivery Method Physical Exam Narrative Physical Examination: General: Awake, alert, oriented x 3 and cooperative, seated upright in the ED bed, fatigued and ill-appearing, mildly increased respiratory rate, episode onset in the ED with dry heaves with notable onset RVR. Skin: Normal color, normal turgor, no icterus, no cyanosis except occasional staged ecchymoses. HEENT: AT/NC, EOMI, PERRLA, moderately dry MM, no carotid bruits or JVD noted. Lungs: Diffusely diminished, greater bases, mildly increased respiratory rate, no evidence of any distress, no rales, ronchi or wheezing. Heart: Tachycardic, regular; no gallop, rub audible. Abdomen: Soft, no obvious TTP, ND, mildly hyperactive bowel sounds, unable to discern any HSM but difficult is having dry heaves intermittently. Extremities: No cyanosis, clubbing, or edema. Neurological: Patient awake, alert, oriented as noted, cognitive function intact; pupils equally reactive to light and accommodation, cranial nerves grossly normal, moving all 4 extremities, no focal deficits, strength severely global decrease secondary to acute presentation. Psychiatric: Affect appears fatigued, ill-appearing, no acute evidence of depressive or anxiety feelings. Results Lab / Micro Data 12/10/23 08:24 12/10/23 08:24 Labs: Laboratory Results - last 24 hr 12/10/23 08:24: WBC 15.7 H, RBC 5.44, Hgb 16.4, Hct 49.4, MCV 90.8, MCH 30.1, MCHC 33.2, RDW Std Deviation 45.0 H, RDW Coeff of Lawrence 13.6, Plt Count 142 L, MPV10.0, Immature Gran % (Auto) 0.500, Neut % (Auto) 84.3 H, Lymph % (Auto) 6.1 L, [place] % (Auto) 8.6, Eos % (Auto) 0.1, Baso % (Auto) 0.4, Absolute Neuts (auto) 13.2 H, Absolute Lymphs (auto) 0.96, Nucleated RBC % 0, Sodium 141, Potassium 4.0, Chloride 111 H, Carbon Dioxide 24.0, Anion Gap 6, BUN 26 H, Creatinine 1.66H, Est GFR (MDRD) Af Amer 51 L, Est GFR (MDRD) Non-Af 42 L, BUN/Creatinine Ratio15.7, Glucose 177 H, Calcium 9.0 Micro: Microbiology 12/10/23 08:24 Mucosa - Nose SARS-CoV-2, Influenza & RSV (PCR) - Final SARS-CoV-2 (COVID 19) Imaging Radiology Impression Chest X-Ray 12/10/23 08:01 IMPRESSION: Cardiomegaly. Electronically Signed: Cha Loo MD at 9:35 EST , Assessment & Plan Assessment/Plan (1) COVID: PLAN: Plan The patient is an 88 y/o M w/ PMHx: CKD stage III unclear subtype, HTN, HLD, PAF, BPH, Chronic anemia, GERD w/ Hx GI bleed/Santillan;s esophagus, Valvular Heart Disease s/p TAVR, Orthostatic hypotension, Hx CVA w/ vertebral artery stenosis, Carotid disease s/p CEA who presents to the [facility] ED on 12/10/2023 with history of fever, generalized weakness and malaise starting over the last 24 hours with a nonproductive cough but no specific nausea, emesis, diarrhea livingat home with his girlfriend initially noted started to feel ill on witha fever up to 102 with difficulty in ambulating secondary to his weakness prompting eventual ED evaluation. 1. Acute Debility, Adult FTT secondary to Acute Viral Syndrome, COVID-19: Will admit to the PCU given notable issues with PAF w/ RVR as noted secondary to dry heaving and not having taken AM medications with de-escalation to MS tele as able, maintain on COVID precautions, will maintain on oxygen with wean as tolerated to room air, PRN albuterol, HOB, IS parameters w/ pending sputum cultures, respiratory viral panel and urine antigens, will obtain D-dimer, procalcitonin, CRP, CPK, Ferritin, LDH, trop and BNP per COVID order set in addition to hepatic profile, continue supportive care, judicious hydration givenoverload risk, closely monitor for worsening status for ARDS and multiorgan failure, in the ED on check patient is noted to be 95% however with activity he does desaturate to less than 94% therefore will initiate IV decadron x 10 doses,defer remdesivir given not requiring oxygen. PT/OT/CM consulted for discharge planning. 2. Acute Renal Insufficiency on Chronic Kidney Disease Stage III, unclear subtype per previous GFR trending through 2021: Admission BUN/Cr 26/1.66, baseline renal function more recently 1.0-1.3, will continue judicious hydration, repeat CMP in AM. 3. Hyperglycemia: Possibly stress response, admission glucose 177, hemoglobin once he requested to be cautious especially given intention of steroid usage as noted. 4. PAF with RVR: Related to #1, onset with dry heaves in the ED and had not taken his BB therapy, cardizem 20 mg x 1 being administered in the ED, we will continue patient home metoprolol regimen as well as home Xarelto regimen. 5. Valvular heart disease: Status post TAVR 08/11/2021, 01/13/2023 echocardiogram with EF 60%, severely enlarged LA, moderately enlarged RA, trivial MVI, TAVR noted to be well-seated and functioning well with no significant stenosis or regurgitation. Encourage continued outpatient follow-upas previously arranged with his cardiology services. 6. History CVA: Patient with history of CVA with vertebral artery stenosis, continue patient home Xarelto regimen, statin, hypertensive regimen as noted, investigating hyperglycemia as noted. PT/OT/case management consulted for discharge planning. 7. Carotid artery disease: Status post left CEA remotely, will continue Xarelto, statin, hypertensive regimen as BP allows. 8. Hypertension: Continue home regimen including metoprolol, clarifying but also appears to be on amlodipine and possibly benazepril, will hold benazepril component given renal insufficiency, PRN hydralazine. 9. Hyperlipidemia: We will continue patient on statin therapy. 10. GERD with history of GI bleed/Santillan's esophagus: We will continue patienton PPI. 11. BPH with unclear obstructive process: Per most recent list noted not on regimen, encourage continued outpatient follow-up as needed. 12. DVT prophylaxis: Continue patient home Xarelto regimen. 13. CODE status: Patient LIVE is his daughter who is present and living will is currently in place. Discussed CODE status at length including difference between FULL code, DNR-CCA and DNR-CC status. Following discussions about the differences in these status, requested DNR-CCA, no intubation, no pressor therapy, no central line. He is not interested in further COVID vaccination. Advanced Care Planning Face to Face Time: 16 minutes. Charges/Coding Visit Charges Inpatient E&M: 42650 Init Hosp L3 Procedures Hospitalists Procedures: 51888 Advncd Care Plan 30 Min 12/10/23 1203 <Electronically signed by Alisa Duran MD> Cosigner Signature (if applicable): CC: Dr. Alisa Duran MD; Dr. Alex Kelley DO~ Signed [facility] Work Phone: [phone] 298-829102-10-2024 History and physical note Author [facility] December 10, 2023 12:03pm Note Date/Time December 10, 2023 10:53am [facility] Medical Records Department [address] [place] [address] H&P Exam - Hospitalist 12/10/23 1049 MR#: [id number] Acct: [id number] Name: SHREE MARCUM Hortencia Rep #:[id number] : 1935 88 From: Alisa Duran MD PCP: Dr. Alex Kelley DO Status:ADM IN [facility] HPI - General General Date of Admission: 12/10/23 Date of Service: 12/10/23 Chief Complaint: Fever, fatigue, weakness, debility. HPI Narrative The patient is an 88 y/o M w/ PMHx: CKD stage III unclear subtype, HTN, HLD, PAF, BPH, Chronic anemia, GERD w/ Hx GI bleed/Santillan;s esophagus, Valvular Heart Disease s/p TAVR, Orthostatic hypotension, Hx CVA w/ vertebral artery stenosis, Carotid disease s/p CEA who presents to the [facility] ED on 12/10/2023 with history of fever, generalized weakness and malaise starting over the last 24 hours with a nonproductive cough, notes to have nausea and dry heaving in the EDbut had not prior, myalgia, congestion but no diarrhea, living at home with his girlfriend, initially noted started to feel ill on with a fever up to 102 with difficulty in ambulating secondary to his weakness prompting eventual ED evaluation. Per report his girlfriend does have also similar symptoms. He does report being vaccinated and having had a booster but unsure series or amount. Workup in the ED included T97.7, heart rate 73 although did vacillate upto 125 in the ED, most recently heart rate 104, BP initially 123/89 with most recent repeat 157/82, respiratory rate 16, 95% on room air, CBC with WBC 15.7, hemoglobin 16.4, platelets 142 with left shift, BMP with chloride 111, BUN/creatinine 26/1.66, GFR 42, glucose 177, chest x-ray with cardiomegaly with no acute cardiopulmonary findings otherwise, rapid SARS COVID positive, negativeinfluenza and RSV PCR. In the ED patient ministered IV fluids as well as IV cardizem 20 mg x 1 and Zofran as once patient had onset dry heaves he became tachycardic with RVR. [facility] Medical History Abnormal finding on imaging of liver Anemia Atrial fibrillation Santillan's esophagus with dysplasia BPH (benign prostatic hyperplasia) CKD (chronic kidney disease), stage III Essential hypertension GERD (gastroesophageal reflux disease) High cholesterol History of GI bleed History of transcatheter aortic valve replacement (TAVR) Hyperlipidemia Hypertension Myocardial infarction Non-smoker Nonrheumatic aortic (valve) stenosis Orthostatic hypotension Osteoporosis Paroxysmal atrial fibrillation Primary malignant neoplasm of skin of scalp Stroke/cerebrovascular accident Transient cerebral ischemia Uses wheelchair Vertebral artery stenosis Vomiting Weakness Wears dentures Wears glasses Home Medications simvastatin 40 mg tablet 40 mg PO QPM 12/19/17 [History Last Taken Unknown] pantoprazole 40 mg tablet,delayed release 40 mg PO DAILY #30 tabs 12/27/22 [Rx Last Taken Unknown] metoprolol tartrate 25 mg tablet 12.5 mg PO BID 07/11/23 [History Last Taken Unknown] rivaroxaban 20 mg tablet (Xarelto) 20 mg PO DAILY 12/10/23 [History Last Taken Unknown] Allergy/AdvReac Type Severity Reaction Status Date / Time terazosin Allergy lower Verified 07/11/23 11:29 blood pressure Family History Mother Hypertension Father Hypertension CVA (cerebral vascular accident) Sister Hypertension Brother Cancer Heart disease CVA (cerebral vascular accident) Dementia Surgical History History of cardiac catheterization History of endarterectomy History of hernia repair S/P TAVR (transcatheter aortic valve replacement) Social History (Updated 12/10/23 @ 12:[address] Alisa Duran MD) household members: significant other Smoking Status: Never smoker alcohol intake: current details: occasional substance use type: does not use caffeine: No ROS ROS Narrative Admission Review of Systems: CONSTITUTIONAL: No weight loss, + fever, chills, weakness or fatigue. HEENT: + Headache/congestion. Eyes: No visual loss, blurred vision, double vision or yellow sclerae. Ears, Nose, Throat: No hearing loss, sneezing. SKIN: No rash or itching, lesions, wounds. CARDIOVASCULAR: No chest pain, chest pressure or chest discomfort, palpitations,edema, orthopnea, syncopal events. RESPIRATORY: + shortness of breath, cough, No marked sputum, wheezing, hemoptysis. GASTROINTESTINAL: + anorexia, nausea, vomiting. No diarrhea, abdominal pain, melena, BRBPR. GENITOURINARY: No dysuria, frequency, urgency or retention. NEUROLOGICAL: + headache, No dizziness, syncope, paralysis, ataxia, numbness or tingling in the extremities, focal weakness, change in bowel or bladder control,seizure. MUSCULOSKELETAL: + muscle, back pain, joint pain or stiffness. HEMATOLOGIC: No anemia. Easy bleeding and bruising. LYMPHATICS: No enlarged nodes. No history of splenectomy. PSYCHIATRIC: No history of depression or anxiety. ENDOCRINOLOGIC: + reports of sweating, cold or heat intolerance. No polyuria or polydipsia. ALLERGIES: No history of asthma, hives, eczema or rhinitis. Vital Signs Vital Signs Vital Signs: 12/10/23 07:47 12/10/23 07:46 12/10/23 09:05 Temperature 97.7 F L Temperature Source Temporal Pulse Rate 73 92 Respiratory Rate 16 21 H Respiratory Effort Normal Non-Labored Respiratory Pattern Normal Blood Pressure 123/89 H Blood Pressure Mean 100 Pulse Ox 95 Oxygen Delivery Method Room Air 12/10/23 09:10 12/10/23 09:20 12/10/23 09:25 Temperature Temperature Source Pulse Rate 91 93 Respiratory Rate 19 H 21 H Respiratory Effort Respiratory Pattern Blood Pressure 146/76 H Blood Pressure Mean 95 Pulse Ox Oxygen Delivery Method 12/10/23 09:30 12/10/23 09:40 12/10/23 09:45 Temperature Temperature Source Pulse Rate 101 H 93 92 Respiratory Rate 16 24 H 23 H Respiratory Effort Respiratory Pattern Blood Pressure 128/76 H 131/87 H Blood Pressure Mean 92 101 Pulse Ox Oxygen Delivery Method 12/10/23 09:50 12/10/23 10:00 12/10/23 10:49 Temperature Temperature Source Pulse Rate 125 H 104 H 148 H Respiratory Rate 24 H 25 H 22 H Respiratory Effort Respiratory Pattern Blood Pressure 157/82 H 167/87 H Blood Pressure Mean 105 113 Pulse Ox Oxygen Delivery Method Physical Exam Narrative Physical Examination: General: Awake, alert, oriented x 3 and cooperative, seated upright in the ED bed, fatigued and ill-appearing, mildly increased respiratory rate, episode onset in the ED with dry heaves with notable onset RVR. Skin: Normal color, normal turgor, no icterus, no cyanosis except occasional staged ecchymoses. HEENT: AT/NC, EOMI, PERRLA, moderately dry MM, no carotid bruits or JVD noted. Lungs: Diffusely diminished, greater bases, mildly increased respiratory rate, no evidence of any distress, no rales, ronchi or wheezing. Heart: Tachycardic, regular; no gallop, rub audible. Abdomen: Soft, no obvious TTP, ND, mildly hyperactive bowel sounds, unable to discern any HSM but difficult is having dry heaves intermittently. Extremities: No cyanosis, clubbing, or edema. Neurological: Patient awake, alert, oriented as noted, cognitive function intact; pupils equally reactive to light and accommodation, cranial nerves grossly normal, moving all 4 extremities, no focal deficits, strength severely global decrease secondary to acute presentation. Psychiatric: Affect appears fatigued, ill-appearing, no acute evidence of depressive or anxiety feelings. Results Lab / Micro Data 12/10/23 08:24 12/10/23 08:24 Labs: Laboratory Results - last 24 hr 12/10/23 08:24: WBC 15.7 H, RBC 5.44, Hgb 16.4, Hct 49.4, MCV 90.8, MCH 30.1, MCHC 33.2, RDW Std Deviation 45.0 H, RDW Coeff of Lawrence 13.6, Plt Count 142 L, MPV10.0, Immature Gran % (Auto) 0.500, Neut % (Auto) 84.3 H, Lymph % (Auto) 6.1 L, Garfield % (Auto) 8.6, Eos % (Auto) 0.1, Baso % (Auto) 0.4, Absolute Neuts (auto) 13.2 H, Absolute Lymphs (auto) 0.96, Nucleated RBC % 0, Sodium 141, Potassium 4.0, Chloride 111 H, Carbon Dioxide 24.0, Anion Gap 6, BUN 26 H, Creatinine 1.66H, Est GFR (MDRD) Af Amer 51 L, Est GFR (MDRD) Non-Af 42 L, BUN/Creatinine Ratio15.7, Glucose 177 H, Calcium 9.0 Micro: Microbiology 12/10/23 08:24 Mucosa - Nose SARS-CoV-2, Influenza & RSV (PCR) - Final SARS-CoV-2 (COVID 19) Imaging Radiology Impression Chest X-Ray 12/10/23 08:01 IMPRESSION: Cardiomegaly. Electronically Signed: Cha Loo MD at 9:35 EST , Assessment & Plan Assessment/Plan (1) COVID: PLAN: Plan The patient is an 88 y/o M w/ PMHx: CKD stage III unclear subtype, HTN, HLD, PAF, BPH, Chronic anemia, GERD w/ Hx GI bleed/Santillan;s esophagus, Valvular Heart Disease s/p TAVR, Orthostatic hypotension, Hx CVA w/ vertebral artery stenosis, Carotid disease s/p CEA who presents to the [facility] ED on 12/10/2023 with history of fever, generalized weakness and malaise starting over the last 24 hours with a nonproductive cough but no specific nausea, emesis, diarrhea livingat home with his girlfriend initially noted started to feel ill on witha fever up to 102 with difficulty in ambulating secondary to his weakness prompting eventual ED evaluation. 1. Acute Debility, Adult FTT secondary to Acute Viral Syndrome, COVID-19: Will admit to the PCU given notable issues with PAF w/ RVR as noted secondary to dry heaving and not having taken AM medications with de-escalation to MS tele as able, maintain on COVID precautions, will maintain on oxygen with wean as tolerated to room air, PRN albuterol, HOB, IS parameters w/ pending sputum cultures, respiratory viral panel and urine antigens, will obtain D-dimer, procalcitonin, CRP, CPK, Ferritin, LDH, trop and BNP per COVID order set in addition to hepatic profile, continue supportive care, judicious hydration givenoverload risk, closely monitor for worsening status for ARDS and multiorgan failure, in the ED on check patient is noted to be 95% however with activity he does desaturate to less than 94% therefore will initiate IV decadron x 10 doses,defer remdesivir given not requiring oxygen. PT/OT/CM consulted for discharge planning. 2. Acute Renal Insufficiency on Chronic Kidney Disease Stage III, unclear subtype per previous GFR trending through 2021: Admission BUN/Cr 26/1.66, baseline renal function more recently 1.0-1.3, will continue judicious hydration, repeat CMP in AM. 3. Hyperglycemia: Possibly stress response, admission glucose 177, hemoglobin once he requested to be cautious especially given intention of steroid usage as noted. 4. PAF with RVR: Related to #1, onset with dry heaves in the ED and had not taken his BB therapy, cardizem 20 mg x 1 being administered in the ED, we will continue patient home metoprolol regimen as well as home Xarelto regimen. 5. Valvular heart disease: Status post TAVR 08/11/2021, 01/13/2023 echocardiogram with EF 60%, severely enlarged LA, moderately enlarged RA, trivial MVI, TAVR noted to be well-seated and functioning well with no significant stenosis or regurgitation. Encourage continued outpatient follow-upas previously arranged with his cardiology services. 6. History CVA: Patient with history of CVA with vertebral artery stenosis, continue patient home Xarelto regimen, statin, hypertensive regimen as noted, investigating hyperglycemia as noted. PT/OT/case management consulted for discharge planning. 7. Carotid artery disease: Status post left CEA remotely, will continue Xarelto, statin, hypertensive regimen as BP allows. 8. Hypertension: Continue home regimen including metoprolol, clarifying but also appears to be on amlodipine and possibly benazepril, will hold benazepril component given renal insufficiency, PRN hydralazine. 9. Hyperlipidemia: We will continue patient on statin therapy. 10. GERD with history of GI bleed/Santillan's esophagus: We will continue patienton PPI. 11. BPH with unclear obstructive process: Per most recent list noted not on regimen, encourage continued outpatient follow-up as needed. 12. DVT prophylaxis: Continue patient home Xarelto regimen. 13. CODE status: Patient LIVE is his daughter who is present and living will is currently in place. Discussed CODE status at length including difference between FULL code, DNR-CCA and DNR-CC status. Following discussions about the differences in these status, requested DNR-CCA, no intubation, no pressor therapy, no central line. He is not interested in further COVID vaccination. Advanced Care Planning Face to Face Time: 16 minutes. Charges/Coding Visit Charges Inpatient E&M: 59795 Init Hosp L3 Procedures Hospitalists Procedures: 33296 Advncd Care Plan 30 Min 12/10/23 1203 <Electronically signed by Alisa Duran MD> Cosigner Signature (if applicable): CC: Dr. Alisa Duran MD; Dr. Alex Kelley DO~ Signed [facility] Work Phone: [phone]) 957-502502-10-2024 Discharge summary Author Miuqel Ruggiero [facility] December 10, 2023 10:51am Note Date/Time December 10, 2023 8:08am [facility] Medical Records Department [address] [place] [address] Emergency Department Summary 12/10/23 MR#: [id number] Acct: [id number] Name: HSREE MARCUM Rep #:[id number] : 1935 88 From: Miquel Ruggiero MD PCP: Dr. Alex Kelley DO Status:REG ER Location: ED HPI HPI - URI History of Present Illness Chief Complaint: Weakness Detail of Chief Complaint: Fever and generalized weakness. Unable to walk. Informant: patient and family Onset/Context/Timing Onset: Today and Yesterday Context: Gradual Onset Timing: Continuous Current Severity: Moderate Maximum Severity: Moderate Worsened by: Not Worsened By Swallowing Relieved by: Tylenol Associated Symptoms Associated Symptoms: Positive for Nonproductive cough; Negative for Nausea, Vomiting, Diarrhea, Hemoptysis or Productive Cough Narrative Narrative: 88-year-old male who lives at home with his girlfriend. He has a history of hypertension, anemia, A-fib and a prior aortic valve TAVR procedure. Start feeling ill on developed a fever as high as 102 yesterday. He just been generally weak to the point where he cannot even ambulate through the home. He had a nonproductive cough. Denies vomiting or diarrhea. No dysuria. No abdominal pain. Girlfriend has similar symptoms at home. Prior similar symptoms: Yes Recent Illness/Hospitalization: No ROS ROS ED ROS Narrative Fever, nonproductive cough and generalized weakness. Review of Systems ROS Unobtainable: Denies due to encephalopathy Constitutional Constitutional ED: Reports fever(s); Denies chills Eyes Eyes: Denies blurry vision ENT ENT ED: Denies ear pain Cardiovascular Cardiovascular: Denies chest pain or palpitations Respiratory/Chest Respiratory/Chest: Reports cough; Denies dyspnea or sputum Gastrointestinal Gastrointestinal: Denies abdominal pain, constipation, diarrhea, melena, nausea or vomiting Genitourinary Genitourinary ED: Denies dysuria, hematuria or urinary frequency Musculoskeletal Musculoskeletal: Denies arthralgias, back pain, myalgias or neck pain Integumentary Denies abscess, Abrasions or rash Neurologic Neurologic: Denies headache(s) Psychiatric Psychiatric: Denies anxiety or depression Endocrine Endocrinology: Denies cold intolerance Hematologic/Lymphatic Hematologic/Lymphatic: Denies lymphadenopathy Allergic/Immunologic Allergic/Immunologic ED: Denies mouth swelling, tongue swelling or urticaria [facility] Medical History (Updated 12/10/23 @ 10:[address] Miquel Ruggiero MD) Abnormal finding on imaging of liver Anemia Anticoagulated Atrial fibrillation Santillan's esophagus with dysplasia BPH (benign prostatic hyperplasia) Cardiology follow-up encounter Essential hypertension Gastric reflux GERD (gastroesophageal reflux disease) GIB (gastrointestinal bleeding) High cholesterol High cholesterol History of atrial fibrillation History of echocardiogram History of GI bleed History of stress test History of transcatheter aortic valve replacement (TAVR) History of transesophageal echocardiography (NITA) History of ulceration Hyperlipidemia Hypertension Myocardial infarction Non-smoker Nonrheumatic aortic (valve) stenosis Orthostatic hypotension Osteoporosis Paroxysmal atrial fibrillation Pneumonia Primary malignant neoplasm of skin of scalp Stroke/cerebrovascular accident Transient cerebral ischemia Uses wheelchair Vertebral artery stenosis Vomiting Weakness Wears dentures Wears glasses Home Medications simvastatin 40 mg tablet 40 mg PO QPM 12/19/17 [History Last Taken Unknown] pantoprazole 40 mg tablet,delayed release 40 mg PO DAILY #30 tabs 12/27/22 [Rx Last Taken Unknown] metoprolol tartrate 25 mg tablet 12.5 mg PO BID 07/11/23 [History Last Taken Unknown] rivaroxaban 20 mg tablet (Xarelto) 20 mg PO DAILY 12/10/23 [History Last Taken Unknown] Allergy/AdvReac Type Severity Reaction Status Date / Time terazosin Allergy lower Verified 07/11/23 11:29 blood pressure Family History Mother Hypertension Father Hypertension CVA (cerebral vascular accident) Sister Hypertension Brother Cancer Heart disease CVA (cerebral vascular accident) Dementia Surgical History (Updated 12/10/23 @ 10:[address] Alisa Duran MD) History of cardiac catheterization History of endarterectomy History of hernia repair S/P TAVR (transcatheter aortic valve replacement) Social History Smoking Status: Never smoker alcohol intake: current details: occasional substance use type: does not use caffeine: No EXAM Physical Exam Narrative Exam Narrative: 88-year-old male vital signs stable afebrile. Initial blood pressure 123/89. Pulse ox 95% on room air. He is currently afebrile he did take Tylenol this morning. HEENT exam mild dry mucous membranes. Otherwise unremarkable. Pupilsround reactive light extra motions are intact. No facial droop. Neck nontender. No lymphadenopathy. No meningismus. Lungs clear to auscultation bilaterally. Dry cough. Heart regular rhythm rate about 70 no murmur. Chest wall and ribs nontender. Abdomen soft nontender. No peritoneal signs. Back nontender. Moving all 4 extremities. 5 out of 5 nail professional strength. Dorsi plantarflexion intact. He can lift either leg or arm off the bed. Neurologically is awake and alert. Answering questions and following commands. No focal motor deficits. Const Vital Signs: 12/10/23 07:47 12/10/23 07:46 12/10/23 09:05 Temperature 97.7 F L Temperature Source Temporal Pulse Rate 73 92 Respiratory Rate 16 21 H Respiratory Effort Normal Non-Labored Respiratory Pattern Normal Blood Pressure 123/89 H Blood Pressure Mean 100 Pulse Ox 95 Oxygen Delivery Method Room Air 12/10/23 09:10 12/10/23 09:20 12/10/23 09:25 Temperature Temperature Source Pulse Rate 91 93 Respiratory Rate 19 H 21 H Respiratory Effort Respiratory Pattern Blood Pressure 146/76 H Blood Pressure Mean 95 Pulse Ox Oxygen Delivery Method 12/10/23 09:30 12/10/23 09:40 12/10/23 09:45 Temperature Temperature Source Pulse Rate 101 H 93 92 Respiratory Rate 16 24 H 23 H Respiratory Effort Respiratory Pattern Blood Pressure 128/76 H 131/87 H Blood Pressure Mean 92 101 Pulse Ox Oxygen Delivery Method 12/10/23 09:50 12/10/23 10:00 12/10/23 10:49 Temperature Temperature Source Pulse Rate 125 H 104 H 148 H Respiratory Rate 24 H 25 H 22 H Respiratory Effort Respiratory Pattern Blood Pressure 157/82 H 167/87 H Blood Pressure Mean 105 113 Pulse Ox Oxygen Delivery Method Positive well nourished and well developed; Negative for obese, cachectic or contractures General Appearance ED: well developed and NAD; Negative for cachectic, contractures, cyanotic, diaphoretic or pallor Nutritional Appearance: Negative for cachectic or obese HEENT Reports dry mucous membranes; Denies moist mucous membranes normocephalic and atraumatic; Negative for scalp tenderness Face and Sinus: Negative for sinus tenderness Mouth ED: Yes dry mucous membranes Mouth: dry mucous membranes Throat: posterior oropharynx normal Eyes PERRL and EOMs intact bilaterally General Eye ED: Negative for pale conjunctiva or scleral icterus Neck no lymphadenopathy, supple, no meningeal signs and no JVD General: Negative for anterior neck swelling or lymphadenopathy Resp normal respiratory effort and clear to auscultation bilaterally Resp Narrative: Dry cough. Effort and Inspection: Negative for retractions Auscultation: Negative for rales, rhonchi or wheezes Cardio S1 normal heart sound, S2 normal heart sound and no murmurs Rate: regular rate; Negative for bradycardia or tachycardic Rhythm: regular rhythm GI non-tender, non-distended and no masses Inspection: Negative for abdominal distention Auscultation: normoactive bowel sounds Palpation: soft; Negative for tender, guarding, hepatomegaly, splenomegaly or mass Back/Spine no CVA tenderness and normal ROM General Back: Negative for CVA tenderness Cervical Spine: Negative for cervical spine tenderness Thoracic Spine / Upper Back: Negative for thoracic spinal tenderness Lumbar Spine / Lower Back: Negative for lumbar spinal tenderness Sacrum: Negative for tenderness Extremity normal to inspection and full ROM General Extremety ED: Negative for cyanosis, tenderness or other findings General Extremity: Negative for cyanosis or other findings Neuro oriented x3 and CN's II-XII intact bilaterally Sensorium / Orientation: alert, oriented to person, oriented to place and oriented to time; Negative for orientation impaired, lethargic, stuporous or other Motor Exam: strength 5/5 throughout Psych mental status grossly normal Appearance: Negative for other Attitude: No agitated Mood & Affect: Negative for depressed, anxious or tearful Skin General Skin Exam: Negative for jaundice or pallor Lesions: no lesions Rashes: no rashes Trauma: Negative for abrasion, laceration or puncture MDM MDM MDM Narrative Medical decision making narrative: 88-year-old male with a fever at home and not feeling well the last several days. Generally weak family says he is unable to walk now at home because of his weakness. Most likely has a viral syndrome of his respiratory tract. Screening labs, IV fluids and viral testing. Currently does not look septic. He does look mildly dehydrated. Repeat exam unchanged. Nurses tried to stand the patient he was unable to stand or ambulate is just too weak. Hospitalist on page for admission. I discussed test results with the family. Patient received a liter of normal saline. History & Record Review Discussion w/independent historian: Patient and Family Additional record(s) reviewed:: Prior inpatient record, Prior outpatient record,Prior ED visit, Prior labs and No prior records Lab Data Attestation: I reviewed the patient's lab results. Lab results narrative: CBC shows elevated white count of 15.7. H&H is 16 and 49. Platelets 142. Electrolytes show a gap of 6. BUN 26 creatinine 1.66. Glucose 177. COVID-positive. Labs: Laboratory Results - last 24 hr 12/10/23 08:24 WBC 15.7 H RBC 5.44 Hgb 16.4 Hct 49.4 MCV 90.8 MCH 30.1 MCHC 33.2 RDW Std Deviation 45.0 H RDW Coeff of Lawrence 13.6 Plt Count 142 L MPV 10.0 Immature Gran % (Auto) 0.500 Neut % (Auto) 84.3 H Lymph % (Auto) 6.1 L Garfield % (Auto) 8.6 Eos % (Auto) 0.1 Baso % (Auto) 0.4 Absolute Neuts (auto) 13.2 H Absolute Lymphs (auto) 0.96 Nucleated RBC % 0 Sodium 141 Potassium 4.0 Chloride 111 H Carbon Dioxide 24.0 Anion Gap 6 BUN 26 H Creatinine 1.66 H Est GFR (MDRD) Af Amer 51 L Est GFR (MDRD) Non-Af 42 L BUN/Creatinine Ratio 15.7 Glucose 177 H Calcium 9.0 Radiography Chest X-Ray - ED: 1 View, Read by ED Physician, Lungs, Mediastinum, Bony Structures, No Acute Disease, Chronic Changes and Cardiomegaly Diagnostic Testing: Clinical Impression(s) from Imaging Studies Chest X-Ray 12/10/23 08:01 IMPRESSION: Cardiomegaly. Electronically Signed: Cha Loo MD at 9:35 EST , Chest x-ray, portable, single view interpreted by myself shows no acute abnormality. Cardiomegaly. Normal lung rondon. Rhythm Strip Rhythm Strip: A-fib Rate: 123 Ectopy: PVC(s) EKG Initial EKG: Attestation: I personally reviewed and interpreted this EKG as follows: Interpretation: Atrial Fibrillation Comments: A-fib with a history of A-fib rate of 123 with PVCs. 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 Discharge Plan Dx/Rx/DC Orders Clinical Impression: COVID, Unable to ambulate, Generalized weakness, Acute dehydration, Chronic a- fib Disposition Disposition: Acute Care [facility] What to do if you have Problems For any increased pain, shortness of breath, bleeding, nausea or vomiting, chestpain, or any unexpected problems, contact your Primary Care Provider. Call [facility] ([phone]) or report to the closest Emergency Room. Call 911 if necessary. 12/10/23 1051 <Electronically signed by Miquel Ruggiero MD> Cosigner Signature (if applicable): CC: Dr. Alex Kelley, DO ~ Signed [facility] Work Phone: 1(126) 906-366902-10-2024 Discharge summary Author Miquel Ruggiero [facility] December 10, 2023 10:51am Note Date/Time December 10, 2023 8:08am [facility] Medical Records Department [address] [place] [address] Emergency Department Summary 12/10/23 MR#: [id number] Acct: [id number] Name: SHREE MARCUM Rep #:[id number] : 1935 88 From: Miquel Ruggiero MD PCP: Dr. Alex Kelley, DO Status:REG ER Location: ED HPI HPI - URI History of Present Illness Chief Complaint: Weakness Detail of Chief Complaint: Fever and generalized weakness. Unable to walk. Informant: patient and family Onset/Context/Timing Onset: Today and Yesterday Context: Gradual Onset Timing: Continuous Current Severity: Moderate Maximum Severity: Moderate Worsened by: Not Worsened By Swallowing Relieved by: Tylenol Associated Symptoms Associated Symptoms: Positive for Nonproductive cough; Negative for Nausea, Vomiting, Diarrhea, Hemoptysis or Productive Cough Narrative Narrative: 88-year-old male who lives at home with his girlfriend. He has a history of hypertension, anemia, A-fib and a prior aortic valve TAVR procedure. Start feeling ill on developed a fever as high as 102 yesterday. He just been generally weak to the point where he cannot even ambulate through the home. He had a nonproductive cough. Denies vomiting or diarrhea. No dysuria. No abdominal pain. Girlfriend has similar symptoms at home. Prior similar symptoms: Yes Recent Illness/Hospitalization: No ROS ROS ED ROS Narrative Fever, nonproductive cough and generalized weakness. Review of Systems ROS Unobtainable: Denies due to encephalopathy Constitutional Constitutional ED: Reports fever(s); Denies chills Eyes Eyes: Denies blurry vision ENT ENT ED: Denies ear pain Cardiovascular Cardiovascular: Denies chest pain or palpitations Respiratory/Chest Respiratory/Chest: Reports cough; Denies dyspnea or sputum Gastrointestinal Gastrointestinal: Denies abdominal pain, constipation, diarrhea, melena, nausea or vomiting Genitourinary Genitourinary ED: Denies dysuria, hematuria or urinary frequency Musculoskeletal Musculoskeletal: Denies arthralgias, back pain, myalgias or neck pain Integumentary Denies abscess, Abrasions or rash Neurologic Neurologic: Denies headache(s) Psychiatric Psychiatric: Denies anxiety or depression Endocrine Endocrinology: Denies cold intolerance Hematologic/Lymphatic Hematologic/Lymphatic: Denies lymphadenopathy Allergic/Immunologic Allergic/Immunologic ED: Denies mouth swelling, tongue swelling or urticaria PFSH PFSH Medical History (Updated 12/10/23 @ 10:[address] Miquel Ruggiero MD) Abnormal finding on imaging of liver Anemia Anticoagulated Atrial fibrillation Santillan's esophagus with dysplasia BPH (benign prostatic hyperplasia) Cardiology follow-up encounter Essential hypertension Gastric reflux GERD (gastroesophageal reflux disease) GIB (gastrointestinal bleeding) High cholesterol High cholesterol History of atrial fibrillation History of echocardiogram History of GI bleed History of stress test History of transcatheter aortic valve replacement (TAVR) History of transesophageal echocardiography (NITA) History of ulceration Hyperlipidemia Hypertension Myocardial infarction Non-smoker Nonrheumatic aortic (valve) stenosis Orthostatic hypotension Osteoporosis Paroxysmal atrial fibrillation Pneumonia Primary malignant neoplasm of skin of scalp Stroke/cerebrovascular accident Transient cerebral ischemia Uses wheelchair Vertebral artery stenosis Vomiting Weakness Wears dentures Wears glasses Home Medications simvastatin 40 mg tablet 40 mg PO QPM 12/19/17 [History Last Taken Unknown] pantoprazole 40 mg tablet,delayed release 40 mg PO DAILY #30 tabs 12/27/22 [Rx Last Taken Unknown] metoprolol tartrate 25 mg tablet 12.5 mg PO BID 07/11/23 [History Last Taken Unknown] rivaroxaban 20 mg tablet (Xarelto) 20 mg PO DAILY 12/10/23 [History Last Taken Unknown] Allergy/AdvReac Type Severity Reaction Status Date / Time terazosin Allergy lower Verified 07/11/23 11:29 blood pressure Family History Mother Hypertension Father Hypertension CVA (cerebral vascular accident) Sister Hypertension Brother Cancer Heart disease CVA (cerebral vascular accident) Dementia Surgical History (Updated 12/10/23 @ 10:[address] Alisa Duran MD) History of cardiac catheterization History of endarterectomy History of hernia repair S/P TAVR (transcatheter aortic valve replacement) Social History Smoking Status: Never smoker alcohol intake: current details: occasional substance use type: does not use caffeine: No EXAM Physical Exam Narrative Exam Narrative: 88-year-old male vital signs stable afebrile. Initial blood pressure 123/89. Pulse ox 95% on room air. He is currently afebrile he did take Tylenol this morning. HEENT exam mild dry mucous membranes. Otherwise unremarkable. Pupilsround reactive light extra motions are intact. No facial droop. Neck nontender. No lymphadenopathy. No meningismus. Lungs clear to auscultation bilaterally. Dry cough. Heart regular rhythm rate about 70 no murmur. Chest wall and ribs nontender. Abdomen soft nontender. No peritoneal signs. Back nontender. Moving all 4 extremities. 5 out of 5 nail professional strength. Dorsi plantarflexion intact. He can lift either leg or arm off the bed. Neurologically is awake and alert. Answering questions and following commands. No focal motor deficits. Const Vital Signs: 12/10/23 07:47 12/10/23 07:46 12/10/23 09:05 Temperature 97.7 F L Temperature Source Temporal Pulse Rate 73 92 Respiratory Rate 16 21 H Respiratory Effort Normal Non-Labored Respiratory Pattern Normal Blood Pressure 123/89 H Blood Pressure Mean 100 Pulse Ox 95 Oxygen Delivery Method Room Air 12/10/23 09:10 12/10/23 09:20 12/10/23 09:25 Temperature Temperature Source Pulse Rate 91 93 Respiratory Rate 19 H 21 H Respiratory Effort Respiratory Pattern Blood Pressure 146/76 H Blood Pressure Mean 95 Pulse Ox Oxygen Delivery Method 12/10/23 09:30 12/10/23 09:40 12/10/23 09:45 Temperature Temperature Source Pulse Rate 101 H 93 92 Respiratory Rate 16 24 H 23 H Respiratory Effort Respiratory Pattern Blood Pressure 128/76 H 131/87 H Blood Pressure Mean 92 101 Pulse Ox Oxygen Delivery Method 12/10/23 09:50 12/10/23 10:00 12/10/23 10:49 Temperature Temperature Source Pulse Rate 125 H 104 H 148 H Respiratory Rate 24 H 25 H 22 H Respiratory Effort Respiratory Pattern Blood Pressure 157/82 H 167/87 H Blood Pressure Mean 105 113 Pulse Ox Oxygen Delivery Method Positive well nourished and well developed; Negative for obese, cachectic or contractures General Appearance ED: well developed and NAD; Negative for cachectic, contractures, cyanotic, diaphoretic or pallor Nutritional Appearance: Negative for cachectic or obese HEENT Reports dry mucous membranes; Denies moist mucous membranes normocephalic and atraumatic; Negative for scalp tenderness Face and Sinus: Negative for sinus tenderness Mouth ED: Yes dry mucous membranes Mouth: dry mucous membranes Throat: posterior oropharynx normal Eyes PERRL and EOMs intact bilaterally General Eye ED: Negative for pale conjunctiva or scleral icterus Neck no lymphadenopathy, supple, no meningeal signs and no JVD General: Negative for anterior neck swelling or lymphadenopathy Resp normal respiratory effort and clear to auscultation bilaterally Resp Narrative: Dry cough. Effort and Inspection: Negative for retractions Auscultation: Negative for rales, rhonchi or wheezes Cardio S1 normal heart sound, S2 normal heart sound and no murmurs Rate: regular rate; Negative for bradycardia or tachycardic Rhythm: regular rhythm GI non-tender, non-distended and no masses Inspection: Negative for abdominal distention Auscultation: normoactive bowel sounds Palpation: soft; Negative for tender, guarding, hepatomegaly, splenomegaly or mass Back/Spine no CVA tenderness and normal ROM General Back: Negative for CVA tenderness Cervical Spine: Negative for cervical spine tenderness Thoracic Spine / Upper Back: Negative for thoracic spinal tenderness Lumbar Spine / Lower Back: Negative for lumbar spinal tenderness Sacrum: Negative for tenderness Extremity normal to inspection and full ROM General Extremety ED: Negative for cyanosis, tenderness or other findings General Extremity: Negative for cyanosis or other findings Neuro oriented x3 and CN's II-XII intact bilaterally Sensorium / Orientation: alert, oriented to person, oriented to place and oriented to time; Negative for orientation impaired, lethargic, stuporous or other Motor Exam: strength 5/5 throughout Psych mental status grossly normal Appearance: Negative for other Attitude: No agitated Mood & Affect: Negative for depressed, anxious or tearful Skin General Skin Exam: Negative for jaundice or pallor Lesions: no lesions Rashes: no rashes Trauma: Negative for abrasion, laceration or puncture MDM MDM MDM Narrative Medical decision making narrative: 88-year-old male with a fever at home and not feeling well the last several days. Generally weak family says he is unable to walk now at home because of his weakness. Most likely has a viral syndrome of his respiratory tract. Screening labs, IV fluids and viral testing. Currently does not look septic. He does look mildly dehydrated. Repeat exam unchanged. Nurses tried to stand the patient he was unable to stand or ambulate is just too weak. Hospitalist on page for admission. I discussed test results with the family. Patient received a liter of normal saline. History & Record Review Discussion w/independent historian: Patient and Family Additional record(s) reviewed:: Prior inpatient record, Prior outpatient record,Prior ED visit, Prior labs and No prior records Lab Data Attestation: I reviewed the patient's lab results. Lab results narrative: CBC shows elevated white count of 15.7. H&H is 16 and 49. Platelets 142. Electrolytes show a gap of 6. BUN 26 creatinine 1.66. Glucose 177. COVID-positive. Labs: Laboratory Results - last 24 hr 12/10/23 08:24 WBC 15.7 H RBC 5.44 Hgb 16.4 Hct 49.4 MCV 90.8 MCH 30.1 MCHC 33.2 RDW Std Deviation 45.0 H RDW Coeff of Lawrence 13.6 Plt Count 142 L MPV 10.0 Immature Gran % (Auto) 0.500 Neut % (Auto) 84.3 H Lymph % (Auto) 6.1 L Garfield % (Auto) 8.6 Eos % (Auto) 0.1 Baso % (Auto) 0.4 Absolute Neuts (auto) 13.2 H Absolute Lymphs (auto) 0.96 Nucleated RBC % 0 Sodium 141 Potassium 4.0 Chloride 111 H Carbon Dioxide 24.0 Anion Gap 6 BUN 26 H Creatinine 1.66 H Est GFR (MDRD) Af Amer 51 L Est GFR (MDRD) Non-Af 42 L BUN/Creatinine Ratio 15.7 Glucose 177 H Calcium 9.0 Radiography Chest X-Ray - ED: 1 View, Read by ED Physician, Lungs, Mediastinum, Bony Structures, No Acute Disease, Chronic Changes and Cardiomegaly Diagnostic Testing: Clinical Impression(s) from Imaging Studies Chest X-Ray 12/10/23 08:01 IMPRESSION: Cardiomegaly. Electronically Signed: Cha Loo MD at 9:35 EST , Chest x-ray, portable, single view interpreted by myself shows no acute abnormality. Cardiomegaly. Normal lung rondon. Rhythm Strip Rhythm Strip: A-fib Rate: 123 Ectopy: PVC(s) EKG Initial EKG: Attestation: I personally reviewed and interpreted this EKG as follows: Interpretation: Atrial Fibrillation Comments: A-fib with a history of A-fib rate of 123 with PVCs. 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 Discharge Plan Dx/Rx/DC Orders Clinical Impression: COVID, Unable to ambulate, Generalized weakness, Acute dehydration, Chronic a- fib Disposition Disposition: Acute Care [facility] What to do if you have Problems For any increased pain, shortness of breath, bleeding, nausea or vomiting, chestpain, or any unexpected problems, contact your Primary Care Provider. Call [facility] ([phone]) or report to the closest Emergency Room. Call 911 if necessary. 12/10/23 1051 <Electronically signed by Miquel Ruggiero MD> Cosigner Signature (if applicable): CC: Dr. Alex Kelley DO ~ Signed [facility] Work Phone: 1(129) 780-608707-31-2023 Discharge summary Author Blessing Kennedy [facility] May 30, 2023 3:59pm Note Date/Time May 30, 2023 3:59 pm [facility] Physical Therapy [facility] [facility] [address] [place] [address] / REHABILITATION SERVICES DISCHARGE SUMMARY MR#: [id number] Acct: [id number] Name: SHREE MARCUM Rep #: [id number] : 1935 87 From: Blessing White Referring Dr.: Dr. Alex Kelley DO Status: REG RCR Insurance: [employer] MED[employer]ARE PPO SELF PAY INSURANCE Discharge Summary D/C summary: It has been my pleasure to treat SHREE MARCUM referred by Dr. Alex Kelley DO, with the diagnosis of weakness and CVA for a total of 9 visit(s). Discharge Date: 05/30/23 Please see the following information for a summary of their discharge status. Subjective Subjective: Pt is not sure therapy has helped much. His caregiver has noticed that he is able to stand more and more mindful of keeping active. She feels that the falling episodes are not any better. He feels like his legs are stronger. He always uses his walker to walk. He exercises at home. Overall Improvement % Improvement: 50 Objective Objective/Function: CATSIB 93/120 FGA 13 GAIT with head turns with wheeled walker Sit to stand X 10 with no hands with some SOB Improved overall standing and walking balance! All goals met. Goals Goal 1:: I HEP Goal Progress: Goal Met Goal 2:: Increase balance (FGA score was 4 on eval) Goal Progress: Goal Met Goal 3:: Increase balance on CATSIB (score was 43) on eval Goal Progress: Goal Met Goal 4:: Be able to walk with wheeled walker with head turns on command without veering or losing his balance with CGA Goal Progress: Goal Met Goal 5:: Be able to sit to stand X 10 with no UE support and maintain standing balance immed upon standing Goal Progress: Goal Met Plan Plan: DC PT per pt request as he will continue to do exercises at home D/C Information Discharge Comments: DC PT to HEP d/c sentence: If there are questions or concerns regarding this patient's physical therapy, please feel free to call me at [phone]. Thank you for the referral of thispatient. Sincerely, ANIA Verdin Balance/Gait/Functional tests Balance/Special Test Scores Functional Gait Assessment Score: 13 % Disability: 56.6700 CATSIB Score (Max score 120 seconds): 93 Lower Extremity Functional Score: 39 <Electronically signed by Blessing Kennedy MPT> 05/30/23 1559 CC: Dr. Alex Kelley, DO ~ Signed [facility] Work Phone: 1(406) 880-403812-01-2021 History of Present illness Narrative* 86 year old who is on Xarelto [...] a small area of LA Grade A esophagitis. * Patient denies dysphagia, wt loss, GERD symptoms. He does not smoke or have family history. [facility] Work Phone: 1(168) 860-112510-13-2021 Hospital Discharge instructions Patient Education 08/12/2021 12:52:12 [facility] TRANSCATHETER AORTIC VALVE REPLACEMENT (TAVR) Discharge Instructions 11/14/2018([facility]) TRANSCATHETER AORTIC VALVE REPLACEMENT (TAVR) Discharge Instructions [...] over your catheter insertion site. Keep a Band- Aid on for the next24 hours and then leave open to air. Some degree of bruising and tenderness is normal around the catheter insertion site. It will take awhile for any bruising to completely resolve. Keep your site clean and dry. 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 Please have lab work done around the same time, prior to your office visit. With:UTE WALSH Address: [address] [place] [address]- When:1-2 days Comments:Please call the office to set up a follow up appointment [facility] 10-12-2021 Evaluation + Plan noteExtracted from: Title:History and Physical Author:NORMA VICENTE MD Date:08/11/21 1. Severe aortic stenosis Plan for TAVR [...] Future Appointments Appointment Date:08/13/2021 09:50:00 AM Scheduled Provider:UTE WALSH Location:[facility] Appointment Type:PC OV Hospital Follow-Up Appointment Date:09/11/2021 01:00:00 PM Scheduled Provider: Location:[facility] Appointment Type:CV Procedure - AOH Echo Appointment Date:09/18/2021 01:30:00 PM Scheduled Provider: Location:[facility] Appointment Type:CV OV Structural Heart Future Scheduled Tests Laboratory* Basic Metabolic Panel 08/11/21 * Complete Blood Count 08/11/21 [facility] 09-11-2021 NoteHNO ID: [id number] Author: Veronica Enamorado APRN.MEL Service: ? Author Type: Nurse Practitioner Type: Progress Notes Filed: 07/11/2021 3:38 PM Note Text: Visit Date: July 11, 2021 Patient Name: Mr.Carrol Marcum Date of : 1935 MRN/E #: [id number] Chief Complaint Patient presents with: Pain: teeth pulled am, continuous bleeding History of present illness Shree Marcum is a 86 year old male. [...] -follow up with PCP within 1 week Veronica Enamorado APRN.[facility] Discussed above plan with patient. Pt agreeable with above plan.[facility] note Author Carolynn Guzman [facility] December 12, 2023 4:20pm Note Date/Time December 12, 2023 4:20pm [facility] Medical Records Department [address] [place] [address] Counseling Note - Pharmacy 12/12/23 1620 MR#: [id number] Acct: [id number] Name: SHREE MARCUM Rep #:[id number] : 1935 88 From: Carolynn Guzman PCP: Dr. Alex Kelley, DO Status:ADM IN Y Location: [place] [address] [place] Med Reconciliation Pharmacy Service has performed discharge medication reconciliation for this patient. The patient's discharge medication list was reviewed for discrepancies and discrepancies were resolved. Medications at Discharge Home Medications simvastatin 40 mg tablet 40 mg PO QPM cholesterol 12/19/17 pantoprazole 40 mg tablet,delayed release 40 mg PO DAILY #30 tabs 12/27/22 metoprolol tartrate 25 mg tablet 12.5 mg PO BID heart 07/11/23 amlodipine 5 mg-benazepril 20 mg capsule 1 cap PO DAILY hypertension 12/10/23 rivaroxaban 20 mg tablet (Xarelto) 20 mg PO DAILY anti platelet 12/10/23 12/12/23 1620 <Electronically signed by Carolynn Guzman> Date _ Carolynn Guzman Cosigner Signature (if applicable): Date CC: ~ Signed [facility] Work Phone: evaluation + Plan note Future Appointments Appointment Date:09/18/2021 01:30:00 PM Scheduled Provider: Location:[facility] Appointment Type:CV OV Structural Heart [facility] Evaluation + Plan note Future Appointments Appointment Date:07/22/2022 01:00:00 PM Scheduled Provider: Location:[facility] Appointment Type:CV OV Structural Heart [facility] evaluation + Plan note Future Appointments Appointment Date:04/19/2023 04:00:00 PM Scheduled Provider:ALEX KELLEY DO Location:[facility] Appointment Type:PC OV Future Scheduled Tests Laboratory* Urine Culture 02/23/23 Radiology* MRI Brain w/ + w/o Contrast 01/12/23 [facility] evaluation + Plan note Future Appointments Appointment Date:04/19/2023 04:00:00 PM Scheduled Provider:ALEX KELLEY DO Location:[facility] Appointment Type:PC OV Future Scheduled Tests Laboratory* Phosphorus Level 04/10/23 * Urine Culture 02/23/23 * Complete Blood Count 04/10/23 * PTH, Intact 04/10/23 Radiology* US Abdomen Limited 02/27/23 * US Renal 02/27/23 [facility] evaluation + Plan note Future Appointments Appointment Date:07/12/2023 03:00:00 PM Scheduled Provider:ALEX KELLEY DO Location:[facility] Appointment Type:PC OV Future Scheduled Tests Laboratory* Protein Electrophoresis Urine 04/19/23 [facility] evaluation + Plan note Future Appointments Appointment Date:07/10/2024 01:30:00 PM Scheduled Provider:ALEX KELLEY DO Location:[facility] Appointment Type:PC OV Future Scheduled Tests Laboratory* Protein Electrophoresis Urine 04/19/23 [facility] Evaluation note* Diagnosis Onset Date Resolution Status S/P TAVR (transcatheter aortic valve replacement) acute Atrial fibrillation, permanent chronic Essential hypertension chron ic Hyperlipidemia chronic Pneumonia acute Atrial fibrillation, permanent chronic Essential hypertension chron ic History of endarte[facility] Nonrheumatic aortic (valve) stenosis chronic Carotid stenosis acute Vertebral artery stenosis [place] History of endarterectomy ch ronic [facility] Work Phone: Evaluation noteNo assessment information available [facility] Work Phone: Evaluation note* Diagnosis Onset Date Resolution Status Acute dehydration acute COVID acute Generalized weakness acute Unable to ambulate acute [facility] Work Phone: Hospital course Narrative No data available for this section [facility] Hospital Discharge instructions No data available for this section [facility] Hospital Discharge instructionsAmbulatory Orders* Neurology Location: [facility] Work Phone: Progress note No data available for this section [facility] Reason for referral (narrative)No reason for referral information [facility] Work Phone: Reason for Referral Status Reason Specialty Diagnoses / Procedures Referred By Contact Referred To Contact Waiting for Online Response Auto-Generate d Referral Patient Cleared - Admin/Chairma n/Director advise to proceed [facility] Diagnoses Permanent atrial fibrillation (HCC) Wide-complex tachycardia (HCC) Procedures ECHO TTE W/DOPPLER, COMPLETE Sam Velazco (Library Media Specialist Barge Pilot), BACK TENDER INSULATION BOARD [address] [facility], [address] [place] [address] [facility] [place] [address] [place] [address] Assessments Diagnosis Permanent atrial fibrillation (HCC) Atrial fibrillation Wide-complex tachycardia (HCC) Paroxysmal ventricular tachycardia Summary Purpose Family History No Family History Records Found Relationship Condition Age at Onset Recorded Date/T abbe mother Hypertension Unknown father Hypertension Unknown Cerebrovascular accident (CVA) Unknown sister Hypertension Unknown brother Malignant neoplasm Unknown Cardiac disease Unknown Dementia Unknown Advance Directives No Advanced Directives Records Found Advance Directive Response Recorded Date/ Time Name of Medical Power of Industrial Gas Fitter Helper Talya Shane tiffany January 13, 2023 2:38pm Advance Directives Yes May 05 9:23am Living Will Yes January 13, 2023 2:38pm Power of Industrial Gas Fitter Helper Yes January 13 2:38pm Advance Directive Response Recorded Date/ Time Advance Directives Yes May 05 9:23am Living Will Yes January 13, 2023 2:38pm Power of Industrial Gas Fitter Helper Yes January 13 2:38pm Advance Directive Response Recorded Date/ Time Name of Medical Power of Industrial Gas Fitter Helper . December 10, 2023 7:46am Advance Directives Yes May 05 8:23am Living Will Yes December 10, 024 7:46am Power of Industrial Gas Fitter Helper Yes December 10, 2023 7:46am Advance Directive Response Recorded Date/ Time Name of Medical Power of Industrial Gas Fitter Helper Aditi Collins marisela December 10, 2023 2:01pm Advance Directives Yes May 05 8:23am Living Will Yes December 10, 024 2:01pm Power of Industrial Gas Fitter Helper Yes December 10, 2023 2:01pm Advance Directive Response Recorded Date/ Time Advance Directives Yes May 05 9:23am Chief Complaint * A telephone visit (audio only) between the patient (at the originating site) and the provider (at the distant site) was utilized to provide this telehealth service. * BE with dysplasia Chief Complaint and Reason for Visit Chief Complaint 1 Y FU CVA R/O GEN WEAKNESS ABILITY AMBULATE, WEAKNESS, CT CHANGE CVA R/O GEN WEAKNESS [facility] FU Reason for Visit S/P TAVR (transcathe ter aortic valve replacement) Atrial fibrillation, permanent Essential hypertension Hyperlipidemia Pneumonia Atrial fibrillation, permanent Essential hypertension History of endarterectomy Nonrheumatic aortic (valve) stenosis Carotid stenosis Vertebral artery stenosis History of endarterectomy Chief Complaint 1 Y FU CVA R/O GEN WEAKNESS ABILITY AMBULATE, WEAKNESS, CT CHANGE CVA R/O GEN [facility]AKNESS [facility] FU CVA Reason for Visit S/P TAVR (transcathe ter aortic valve replacement) Atrial fibrillation, permanent Essential hypertension Hyperlipidemia Pneumonia Atrial fibrillation, permanent Essential hypertension History of endarterectomy Nonrheumatic aortic (valve) stenosis Carotid stenosis Vertebral artery stenosis History of endarterectomy Chief Complaint CVA WEAKNESS,CEREBROVASCULAR RX HERE Chief Complaint COVID, ADULT FTT Reason for Visit Acute dehydration COVID Generalized weakness Unable to ambulate Chief Complaint COVID, ADULT FTT COVID, ADULT FTT COVID, ADULT FTT Reason for Visit Acute dehydration COVID Generalized weakness Unable to ambulate Chief Complaint Admit Date fu February 27, 2025 1:2 7pm Reason for Visit Admit Date Carotid stenosis February 27, 2025 1:2 7pm Atrial fibrillation, permanent January 1:27pm History of CVA (cerebrovascular accident ) February 27, 2025 1:27pm Hypertension February 27, 2025 1:2 7pm Chief Complaint Admit Date February 27, 2025 1:2 7pm 6-8 M FU April 17, 2025 12:3 9pm Reason for Visit Admit Date Carotid stenosis February 27, 2025 1:2 7pm Atrial fibrillation, permanent January 1:27pm History of CVA (cerebrovascular accident ) February 27, 2025 1:27pm Hypertension February 27, 2025 1:2 7pm Atrial fibrillation, permanent March 12:39pm Carotid artery disease April 17, 2025 1 2:39pm Dyslipidemia April 17, 2025 12:3 9pm History of CVA (cerebrovascular accident ) April 17, 2025 12:39pm Hypertension April 17, 2025 12:3 9pm S/P TAVR (transcatheter aortic valve rep lacement) April 17, 2025 12:39pm Chief Complaint Admit Date February 27, 2025 1:2 7pm 6-8 M FU April 17, 2025 12:3 9pm AFIB, CAROTID STENOSIS May 29, 2025 1 2:56pm Additional Source Comments Source Comments (unrecognize d section and content) In the event this informatio n is protected by the Federal Confidentiality of Alcohol and Drug Abuse Patient Records regulations: The Federal rules restrict any use of the information to criminally investigate or prosecute any alcohol or drug abuse patient.[facility] the event this information is protected by the Federal Confidentiality of Alcohol and Drug Abuse Patient Records regulations: The Federal rules restrict any use of the information to criminally investigate or prosecute any alcohol or drug abuse patient.[facility] the event this information is protected by the Federal Confidentiality of Alcohol and Drug Abuse Patient Records regulations: The Federal rules restrict any use of the information to criminally investigate or prosecute any alcohol or drug abuse patient.[facility] the event this information is protected by the Federal Confidentiality of Alcohol and Drug Abuse Patient Records regulations: The Federal rules restrict any use of the information to criminally investigate or prosecute any alcohol or drug abuse patient.[facility] the event this information is protected by the Federal Confidentiality of Alcohol and Drug Abuse Patient Records regulations: The Federal rules restrict any use of the information to criminally investigate or prosecute any alcohol or drug abuse patient.[facility] Hospital[facility] the event this information is protected by the Federal Confidentiality of Alcohol and Drug Abuse Patient Records regulations: The Federal rules restrict any use of the information to criminally investigate or prosecute any alcohol or drug abuse patient.[facility] Reason for Visit (unrecogniz ed section and content) Status Reason Specialty Diagnoses / Procedures Referred By Contact Referred To Contact Waiting for Online Response Auto-Generate d Referral Patient Cleared - Admin/Chairma n/Director advise to proceed [facility] Diagnoses Permanent atrial fibrillation (HCC) Wide-complex tachycardia (HCC) Procedures ECHO TTE W/DOPPLER, COMPLETE Sam Velazco (Library Media Specialist Barge Pilot), BACK TENDER INSULATION BOARD [address] [facility], [address] [place] [id number] [facility] [address] [place] [address] Reason Onset Date Comments Results 07/08/2020 Reason Onset Date Comments Results 08/13/2020 Telephone Encounter - Jen Reyes) - 07/08/2020 8:41 AM EDTTelephone Encounter - Gina Wallace - 07/08/2020 8:32 AM EDTTelephone Encounter - Gina Wallace - 07/08/2020 8:32 AM EDT Miscellaneous Notes (unrecog nized section and content) Patient returned phone call. Results and recommendations given per Sam Velazco CNP instructions. Patient verbalized understanding. Jen Reyes I called and left a message for to call [facility] for test results. Gina Wallace LPN ----- Message from Sam (Mirta Romero) EDMUND Velazco sent at 07/06/2020 9:27 [...] see if that shows anything significant. Thanks. Sam Velazco APRN.BACK TENDER INSULATION BOARD documented in this encounter I spoke to [...] saw me in the office in May. Sam Velazco APRN.BACK TENDER INSULATION BOARD documented in this encounter (unrecognized sect ion and content) No Status Records FoundNo Status Records FoundNo Status Records FoundNo Status Records FoundNo Status Records FoundNo Status Records Found INFORMATION SOURCE (unrecogn ized section and content) DATE CREATED AUTHOR 08/12/2020 [facility] DATE CREATED AUTHOR AUTHOR'S ORGANIZ ATION 08/14/2020 [facility] DATE CREATED AUTHOR AUTHOR'S ORGANIZ ATION 11/26/[address] [facility] DATE CREATED AUTHOR AUTHOR'S ORGANIZ ATION 02/06/2022 [employer] DATE CREATED AUTHOR AUTHOR'S ORGANIZ ATION 01/18/2024 [facility] ([place]) DATE CREATED AUTHOR AUTHOR'S ORGANIZ ATION 06/23/2025 [facility] Care Team (unrecognized sect ion and content) Care Team Personnel Name: JAKUB CONNORS MD Position: P4 Physician - Cardiothoracic Surgery Address: Address: [address] [place] [address] [address] [facility] [place] [address]- Name: HERIBERTO SANCHEZ MD Address: Address: [address] [facility] [address] [place] [address]- [place] Name: NORMA VICENTE MD Position: P4 Physician - Cardiology Address: Address: [address] [facility] [address] [facility] [place] [address]- Name: UTE WALSH APRN-[facility] Position: P4 Advanced Practice Nurse Member Role: Primary Care Physician Address: Address: [address] [facility] [place] [address]- Care Team Related Persons Name: ADITI REED Name: ADITI REED Name: MIQUEL REED Name: TALYA REED Care Teams (unrecognized sec tion and content) Team Status: Active Member Role Status Dates Dr. Jono Vásquez DO Family Provider Active Dr. Alex Kelley DO Primary Care Provider Active Team Status: Inactive Member Role Status Dates Ute Walsh CLOTHING CUTTER, CLOTHING CUTTER-C Primary Care Provider, Referrin g Provider Active Dr. Heriberto Sanchez MD Attending Provider Active Team Status: Active Member Role Status Dates Dr. Alex Kelley DO Primary Care Provider Active Dr. Barry Walton MD Emergency Provider Active Dr. Kath Erickson MD Admit Provider, At tending Provider, Other Provider Active Team Status: Active Member Role Status Dates Dr. Alex Kelley DO Primary Care Provider Active Dr. Andie Cruz MD Attending Provider Activ e Dr. Kath Erickson MD Referring Provider Active Team Status: Active Member Role Status Dates Dr. Alex Kelley DO Primary Care Provider Active Dr. Barry Walton MD Emergency Provider Active Dr. Kath Erickson MD Admit Provider, Other Provider A ctive Dr. Yash Moreno DO Attending Provider, Other Provid er Active Team Status: Inactive Member Role Status Dates Ute Walsh CLOTHING CUTTER, CLOTHING CUTTER-C Referring Provider Active Siena BAIN PA Attending Provider Active Dr. Alex Kelley DO Primary Care Provider Active Team Status: Inactive Member Role Status Dates Dr. Alex Kelley DO Primary Care Provider Active Dr. Barry Walton MD Emergency Provider Active Dr. Kath Erickson MD Admit Provider, Other Provider A ctive Dr. Yash Moreno DO Attending Provider Active Team Status: Inactive Member Role Status Dates Dr. Alex Kelley DO Primary Care Provider, Attending P letty Active Team Status: Active Member Role Status Dates Dr. Alex Kelley DO Primary Care Provider Active Dr. Yash Morocho MD Attending Provider Active Team Status: Inactive Member Role Status Dates Dr. Alex Kelley DO Primary Care Provider Active Siena BAIN PA Attending Provider, Referrin g Provider Active Team Status: Active Member Role Status Dates Dr. Alex Kelley DO Primary Care Provider Active Dr. Yash Morocho MD Attending Provider Active Siena Mercedes PA Referring Provider Active Team Status: Inactive Member Role Status Dates Dr. Alex Kelley DO Primary Care Provider Active ODELL Collier Attending Provider, Referring Provider Active Team Status: Inactive Member Role Status Dates Dr. Alex Kelley DO Primary Care Provide r, Attending Provider, Referring Provider Active Team Status: Active Member Role Status Dates Dr. Alex Kelley DO Primary Care Provider Active Dr. Miquel Ruggiero MD Emergency Provider Active Dr. Alisa Duran MD Admit Provider, Attending Prov ider Active Team Status: Active Member Role Status Dates Dr. Alex Kelley DO Primary Care Provider Active Dr. Miquel Ruggiero MD Emergency Provider Active Dr. Alisa Duran MD Admit Provider, Attending Provider, Other Provider Active Team Status: Active Member Role Status Dates Dr. Alex Kelley DO Primary Care Provider Active Dr. Miquel Ruggiero MD Emergency Provider Active Dr. Alisa Duran MD Admit Provider, Other Provider Active Dr. Yash Moreno DO Attending Provider, Other Provid er Active Team Status: Inactive Member Role Status Dates Dr. Alex Kelley DO Primary Care Provider Active Dr. Miquel Ruggiero MD Emergency Provider Active Dr. Alisa Duran MD Admit Provider, Other Provider Active Dr. Yash Moreno DO Attending Provider Active Team Status: Active Member Role Status Dates Dr. Emery Connors DO Primary Care Provider Active Team Status: Inactive Member Role Status Dates Dr. Alex Kelley DO Primary Care Provider Active Start: February 27, 2025 End: February 27, 2025 Dr. Alex eKlley DO Referring Provider Active St art: February 27, 2025 End: February 27, 2025 Dr. Emery Connors DO Attending Provider Active Start: February 27, 2025 End: February 27, 2025 Team Status: Inactive Member Role Status Dates Dr. Emery Connors DO Primary Care Provider Active Start: February 27, 2025 End: February 27, 2025 Dr. Emery Connors DO Attending Provider Active Start: February 27, 2025 End: February 27, 2025 Dr. Emery Connors DO Referring Provider Active Start: February 27, 2025 End: February 27, 2025 Team Status: Inactive Member Role Status Dates Dr. Alex Kelley DO Referring Provider Active St art: April 17, 2025 End: April 17, 2025 Dr. Marian Francisco MD Attending Provider Active Start: April 17, 2025 End: April 17, 2025 Dr. Emery Connors DO Primary Care Provider Active Start: April 17, 2025 End: April 17, 2025 Team Status: Active Member Role/Relationship Status Dates Dr. Emery Connors DO Primary Care Provider Active Team Status: Inactive Member Role/Relationship Status Dates Dr. Alex Kelley DO Primary Care Provider Active Start: February 27, 2025 End: February 27, 2025 Dr. Alex Kelley DO Referring Provider Active St art: February 27, 2025 End: February 27, 2025 Dr. Emery Connors DO Attending Provider Active Start: February 27, 2025 End: February 27, 2025 Team Status: Inactive Member Role/Relationship Status Dates Dr. Emery Connors DO Primary Care Provider Active Start: February 27, 2025 End: February 27, 2025 Dr. Emery Connors DO Attending Provider Active Start: February 27, 2025 End: February 27, 2025 Dr. Emery Connors DO Referring Provider Active Start: February 27, 2025 End: February 27, 2025 Team Status: Inactive Member Role/Relationship Status Dates Dr. Alex Kelley DO Referring Provider Active St art: April 17, 2025 End: April 17, 2025 Dr. Marian Francisco MD Attending Provider Active Start: April 17, 2025 End: April 17, 2025 Dr. Emery Connors DO Primary Care Provider Active Start: April 17, 2025 End: April 17, 2025 Team Status: Inactive Member Role/Relationship Status Dates Dr. Emery Connors DO Primary Care Provider Active Start: May 29, 2025 End: May 29, 2025 Dr. Marian Francisco MD Attending Provider Active Start: May 29, 2025 End: May 29, 2025 Dr. Marian Francisco MD Referring Provider Active Start: May 29, 2025 End: May 29, 2025 Team Status: Active Member Role/Relationship Status Dates Dr. Emery Connors DO Primary Care Provider Active Start: May 29, 2025 Dr. Marian Francisco MD Attending Provider Active Start: May 29, 2025 Team Status: Active Member Role/Relationship Status Dates Dr. Emery Connors DO Primary Care Provider Active Start: May 29, 2025 Dr. Yash Morocho MD Attending Provider Active S tart: May 29, 2025 Goals (unrecognized section and content) Goals may be documented in a n alternate section FOR RECORDS PERTAINING TO PATIENTS WHO ARE [...] BE BASED ON THE PRIMARY CLINICAL RECORDS. [employer] provides no warranty or guarantee of the accuracy or completeness of information in this document.
[2025-09-20 05:27] VITALS: BP 127/53; PULSE 48; RESP 16; TEMP 36.4; O2SAT 93
[2025-09-20 07:39] LABS: Hematocrit 41.2 % (40-54); Hemoglobin 13.4 g/dL (13.0-16.5); Mean Corp Hgb Conc 32.5 g/dL (32-36); Mean Corpuscular Volume 92.2 fL (80-94); Mean Platelet Vol. 10.1 fl (6.2-12.0); Platelet Count 121 K/mm3 (150-450); RBC Distribution Width CV 13.6 % (11.6-14.6); RBC Distribution Width SD 46.3 fl (35.1-43.9); Red Blood Count 4.47 M/mm3 (4.6-6.2); White Blood Count 14.0 K/mm3 (4.4-11.0)
[2025-09-20 08:05] LABS: Anion Gap 7 (5-15); BUN 17 mg/dL (4-19); BUN/Creat Ratio 13.4 RATIO (10-20); Calcium,Total 8.2 mg/dL (7.6-11.0); Carbon Dioxide 24.9 mmol/L (21.0-32.0); Chloride 106 mmol/L (98-108); Estimated Creatinine Clearance 38.39 ml/min (50-250); Glucose 97 mg/dL (70-99); Potassium 4.2 mmol/L (3.3-5.1)
[2025-09-20 08:25] VITALS: O2SAT 95
[2025-09-20 08:39] VITALS: BP 118/68; PULSE 55; RESP 17; TEMP 36.4; O2SAT 94
[2025-09-20] MEDS: Azithromycin 500 MG in 0.9% Normal Saline (250mL Bag) 250 ML 250 MG IV (09:42)
[2025-09-20 09:43] VITALS: PULSE 66
--- NOTE | 2025-09-20 11:59 | CASEMGMT ---
PHILIPPE Met with patient to complete PHILIPPE form. PHILIPPE form and its content were verbally explained and patient's questions were answered to the best of my ability.? Patient voiced understanding and signed PHILIPPE form.? Patient provided a copy of signed PHILIPPE form and original placed in patient's chart.? Patient had no further questions. Nadeen Green, Discharge Planning Asst
--- NOTE | 2025-09-20 11:59 | CASEMGMT ---
Discharge Planning A list of?HH providers including quality and resource use data and consistent with the patient's preferred geographic region ([id number] & [id number]), medical needs, and insurance network was created in [employer] Guide.? This list was provided to the SW. Nadeen Green, Discharge Planning Asst.
[2025-09-20 14:16] VITALS: BP 117/82; PULSE 55; RESP 18; TEMP 36.4; O2SAT 95
--- NOTE | 2025-09-20 14:54 | CASEMGMT ---
Addendum entered by Bev Lebron 09/20/25 15:27: Social Work RILEY provided pt's dgt with list of private duty aids per her request. LIZBETH Michelle Original Note: Social Work SW?to room to meet with patient for initial transition planning/care coordination?assessment.?SW?introduced self and role at [facility].? Pt voices understanding and consents to?assessment. Pt's son and dgt are present in pt room and assist with answering questions as pt is forgetful. Care providers, pharmacy, and demographics verified. PCP: Emery Lantigua Specialists: [facility] Preferred Pharmacy: [facility] Insurance: [employer] Prescription Benefit:? Yes Living Will/HPOA:?Yes, HCPOA and Living will on file LNOK: Pt dgt Latia Han, son Kenneth Singh, and granddgt Talya Clements Living Arrangements: Pt lives in a one story condo with no steps to enter. Pt lives with his girlfriend Reyna Toney. Reyna assists pt with set up of ADLs and pt is usually able to complete and Reyna does all IADLs Transportation:?Reyna and pt dgt Latia DME: ? Walker (which pt uses for all ambulation), shower chair HHC/SNF: [facility] previously although uncertain which company, [facility] PLAN: RILEY reviewed therapy notes with pt, pt's dgt and pt's son. Pt did well with therapy with no recommendations for continued therapy at DC. Pt and children are agreeable that pt did well and does not need additional therapy. Pt dgt states she will talk to pt girlfriend Reyna and decide if pt will return home with Reyna or go to Latia's house at discharge. Pt is agreeable to this. Pt and family deny all DC needs. LIZBETH Honeycutt
--- NOTE | 2025-09-20 14:59 | DCINST_ITS ---
Discharge Instructions DC O2, CPAP, BIPAP needs Home O2 Discharge instructions: No Dressing / Incision Discharge Activity: Return to Normal Activity Weight Bearing Status: Full weight bearing Follow Up Care Test Results: Test results from this visit will be discussed in further detail at your follow- up appointment, if applicable. Discharge Plan Admission Admit Date/Time: 09/19/25 16:00 Primary Reason for Your Visit: Generalized weakness Attending Provider: Omar Hernández Primary Care Provider: Emery Lantigua Consulting Providers: Dominick Stokes Discharge Orders/Prescriptions Prescriptions: Continued pantoprazole 40 mg tablet,delayed release (DR/EC) 40 mg PO DAILY Qty: 90 2RF metoprolol tartrate 25 mg tablet 12.5 mg PO BID 90 Days Qty: 90 3RF amlodipine-benazepril 5-20 mg capsule 1 cap PO DAILY Qty: 90 3RF Xarelto 20 mg tablet 20 mg PO DAILY Qty: 90 3RF simvastatin 40 mg tablet 40 mg PO QPM Qty: 90 0RF Referrals / Follow Up: Emery Lantigua DO [Primary Care Provider, Internal Medicine] - Within 1 Month Disposition Disposition (needs filled in before D/C Order can be placed): Home, Self Care
--- NOTE | 2025-09-20 15:02 | DS.PCM_ITS ---
Providers Date of Admission: 09/19/25 Date of Discharge: 09/20/25 Primary Care Physician: Dr. Emery Lantigua, DO Reason For Visit: SUSPECTED VIRAL URI W/ WEAKNESS AND DIFFICULTY Diagnosis Discharge Diagnosis (1) URI (upper respiratory infection): Status: Acute Code(s): J06.9 - Acute upper respiratory infection, unspecified (2) Weakness: Status: Acute Code(s): R53.1 - Weakness Plan 1. 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 Medications at Discharge Home Medications metoprolol tartrate 25 mg tablet 12.5 mg (1/2 x 25 mg) PO BID heart 90 days #90 tabs 02/27/25 pantoprazole 40 mg tablet,delayed release 40 mg PO DAILY #90 tabs 02/27/25 amlodipine 5 mg-benazepril 20 mg capsule 1 cap PO DAILY #90 caps 04/02/25 rivaroxaban 20 mg tablet (Xarelto) 20 mg PO DAILY #90 tabs 08/26/25 simvastatin 40 mg tablet 40 mg PO QPM for cholesterol #90 TABLETS 09/02/25 Hospital Course Operations None Procedures None Summary of Care Provided Minutes Spent on Discharge: 30 Hospital Course: This 89-year-old white female was seen in the emergency room at [facility] presenting with generalized weakness and difficulty ambulating. Patient lives at home with his significant other, he complained of a cough and significant congestion for the past several days along with decreased oral intake. Labs in the ER was notable for a white blood cell count of 20,000, chest x-ray showed mild cardiomegaly but was otherwise unremarkable. Patient's COVID/flu/RSV tests were negative due to his weakness and difficulty ambulating patient was placed in observation status on MedSurg 3, he was given IV antibiotics due to concerns for an upper respiratory tract infection. Respiratory panel was negative patient was given IV fluids. He was seen by PT and OT and did well ambulating on 09/20/2025. On that date, he was seen and examined by myself: On examination he appeared in good health and spirits. Vital signs as documented. Skin warm and dry and without overt rashes. Neck without JVD, neck was supple, trachea midline, thyroid was normal. Lungs clear bilaterally, normal air movement was noted. Heart exam notable for irregular rhythm, normal sounds and absence of murmurs, rubs or gallops. Abdomen unremarkable and without evidence of organomegaly, masses, or abdominal aortic enlargement. Bowel sounds are present, abdomen is not distended. Extremities nonedematous, no cyanosis was noted, no clubbing was noted. Neuro: Cranial nerves II through XII are grossly intact, no focal motor deficits were noted, sensation to light touch and pinprick intact, motor exam 5/5 throughout. Psych: Patient is alert and oriented x3, he does not appear anxious or depressed, he does not appear agitated. Patient was discharged home in stable condition on 09/20/2025. Weight / BMI Weight Weight: 68.039 kg Body Mass Index (BMI) 22.1 ABG / Lab / Microbiology Data 09/20/25 07:08 09/20/25 07:08 Laboratory: Laboratory Results - last 24 hr 09/19/25 15:05: PT 24.0 H, INR 2.1, APTT 36.9 H, Procalcitonin 0.28 H 09/19/25 15:15: Urine Color Yellow, Urine Clarity Clear, Urine pH 5.0, Ur Specific [place] 1.020, Urine Protein 100 H, Urine Glucose (UA) Normal, Urine Ketones 5 H, Urine Occult Blood 25 H, Urine Nitrite Negative, Urine Bilirubin Negative, Urine Urobilinogen Normal, Ur Leukocyte Esterase Negative, Urine RBC 0-5 SEEN, Urine WBC 0-5 SEEN, Ur Squamous Epith Cells 0 SEEN, Urine Bacteria 0 SEEN, Urine Mucus 0 SEEN 09/20/25 07:08: WBC 14.0 H, RBC 4.47 L, Hgb 13.4, Hct 41.2, MCV 92.2, MCH 30.0, MCHC 32.5, RDW Std Deviation 46.3 H, RDW Coeff of [place] 13.6, Plt Count 121 L, MPV 10.1, Sodium 138, Potassium 4.2, Chloride 106, Carbon Dioxide 24.9, Anion Gap 7, BUN 17, Creatinine 1.28 H, Estim Creat Clear Calc 38.39 L, Est GFR (MDRD) Non-Af 54 L, BUN/Creatinine Ratio 13.4, Glucose 97, Calcium 8.2 Microbiology: Microbiology 09/19/25 17:21 Mucosa - Nasopharyngeal Respiratory Panel (PCR) - Final 09/19/25 14:10 Mucosa - Nose SARS-CoV-2, Influenza & RSV (PCR) - Final D/C Instructions Weight Bearing Status: Full weight bearing DC O2, CPAP, BIPAP Needs Home O2 Discharge instructions: No Meaningful Use Info Meaningful Use Meaningful Use Diagnoses (Choose all that apply): None applicable Discharge Plan Admission Admit Date/Time: 09/19/25 16:00 Primary Reason for Your Visit: Generalized weakness Attending Provider: Omar Hernández Primary Care Provider: Emery Lantigua Consulting Providers: Dominick Stokes Discharge Orders/Prescriptions Prescriptions: Continued pantoprazole 40 mg tablet,delayed release (DR/EC) 40 mg PO DAILY Qty: 90 2RF metoprolol tartrate 25 mg tablet 12.5 mg PO BID 90 Days Qty: 90 3RF amlodipine-benazepril 5-20 mg capsule 1 cap PO DAILY Qty: 90 3RF Xarelto 20 mg tablet 20 mg PO DAILY Qty: 90 3RF simvastatin 40 mg tablet 40 mg PO QPM Qty: 90 0RF Referrals / Follow Up: Emery Lantigua DO [Primary Care Provider, Internal Medicine] - Within 1 Month Disposition Disposition (needs filled in before D/C Order can be placed): Home, Self Care Charges/Coding Visit Charges Inpatient E&M: [id number] Disch Hosp
--- NOTE | 2025-09-20 15:19 | PHA.DC.MR.R ---
[facility] [place] Med Reconciliation [facility] Service has performed discharge medication reconciliation for this patient. The patient's discharge medication list was reviewed for discrepancies and discrepancies were resolved. Medications at Discharge Home Medications metoprolol tartrate 25 mg tablet 12.5 mg (1/2 x 25 mg) PO BID heart 90 days #90 tabs 02/27/25 pantoprazole 40 mg tablet,delayed release 40 mg PO DAILY #90 tabs 02/27/25 amlodipine 5 mg-benazepril 20 mg capsule 1 cap PO DAILY #90 caps 04/02/25 rivaroxaban 20 mg tablet (Xarelto) 20 mg PO DAILY #90 tabs 08/26/25 simvastatin 40 mg tablet 40 mg PO QPM for cholesterol #90 TABLETS 09/02/25
== END 2025-09-20 16:04 | disposition home or self-care (01) ==
LOC: ED 16:07 → MS3 16:16
PROVIDERS: Admitting Provider Hospitalist; Emergency Provider Surgery; PCP Family Medicine; Visit Provider Internal Medicine
DX: J06.9 Acute upper respiratory infection, unspecified (principal); I48.21 Permanent atrial fibrillation; N18.30 Chronic kidney disease, stage 3 unspecified; E78.00 Pure hypercholesterolemia, unspecified; K21.9 Gastro-esophageal reflux disease without esophagitis; I12.9 Hypertensive chronic kidney disease with stage 1 through stage 4 chronic kidney disease, or unspecified chronic kidney disease; R26.2 Difficulty in walking, not elsewhere classified; Z95.2 Presence of prosthetic heart valve; Z79.01 Long term (current) use of anticoagulants; Z79.899 Other long term (current) drug therapy; R53.1 Weakness; R06.09 Other forms of dyspnea
CPT/HCPCS: 36415; 71046; 80048; 80053; 81001; 83735; 83880; 84145; 84484; 85025; 85027; 85610; 85730; 87631; 87633; 93005; 94668; 96361; 96365; 96366; 96367; 96375; 97162; 97165; 99221; 99285; A4216; G0378; J2405